=== PATIENT | female | born 1945 | race Caucasian/White ===

== ENCOUNTER 2023-03-20 10:24 | Outpatient (CLI) | payer MEDICARE, OTHER, SELFPAY ==
--- NOTE | 2023-03-20 10:57 | ONC.NURNOTE ---
Addendum entered by Alma Willson, RN 04/14/23 11:34: Called patient to check and see if she still plans [facility]. She notes that she was looking for a place to do prn IVF with a walk in option. She was notified that this is not a possibility, but that if she needs fluids M-F between 8-4PM, she is welcome to call. She declined this service. Original Note: Patient arrived at [facility] stating shes her for fluids. normally goes to [facility]. Dr. Diallo. hasnt been to [facility] in 5 yrs. We did not receive any orders for fluid. She has a port and left her card at home. reassurance and listening given. pt left and felt she could wait for fluids at tomorrows apt in [place]. did offer her to go to the ER. She declined. left vis w/c via house sup. pt calm and seemed to understand
== END 2023-03-20 11:16 | disposition home or self-care (01) ==
LOC: OP CLINIC 10:31 → MEDSURG 10:32 → OP CLINIC 11:15
PROVIDERS: PCP Internal Medicine; Visit Provider Internal Medicine
DX: Z53.8 Procedure and treatment not carried out for other reasons (principal)

== ENCOUNTER 2024-09-13 11:10 | Emergency (ER) | payer MEDICARE, OTHER, SELFPAY ==
[2024-09-13] VITALS (26 sets, daily range): BP systolic 108–177; BP diastolic 60–118; PULSE 75–84; RESP 9–32; TEMP 36.2; O2SAT 93–99; BMI 20.5
--- OUTSIDE RECORDS SUMMARY | 2024-09-13 11:12 | XMS_ITS | Data Portability ---
Author Organization [place] - [facility], [employer] Address [address] [facility] [place] [address] Assessment Encounter Date Assessment Date Assessment LastModified by Organization Details LastModified Time 09/29/2023 09/29/2023 Patient seen in office today for a diabetic foot exam. Diabetes is well controlled. Abnormal findings include neuropathy, mycotic nails. Patient educated on diabetic foot complications and prevention. I did debrided her nails and calluses as previously documented today. We also advised the patient to do vinegar soaks at home. Discussed treatment/diagno stic plan and orders with patient as indicated below. [email or web address] Not available 09/29/2023 12:53:36 Plan of Treatment Reminders Order Date Submit Date Provider Last Modified By Organization Details Last Modified Time Details Appointments None record ed. Lab None record ed. Referral None record ed. Procedures None record ed. Surgeries None record ed. Imaging None record ed. Medication Orders None record ed. Patient TargetsNo targets recorded. Patient InstructionsNo instructions recorded. Reason for Referral None Reported. Problems Name Problem SNOMED Code Status Onset Date Resolution Date Notes Provider Name and Address Organization Details Recorded Time History of thromboem bolism of vein 628763522 Active 2013 History of DVT (deep vein thrombosis ); Original Code: V12.51 Matt ginal Codesystem : ICD-9-CM C lassificat ion: Medical Co nfirmation Status: Confirmed Not Available [facility] 3 09:04:46 Essential hypertens ion 74545698 Active 2013 HTN (Hypertens ion); Original Code: 401.9 Orig inal Codesystem : ICD-9-CM C lassificat ion: Medical Co nfirmation Status: Confirmed Not Available [facility] 3 09:04:46 Glaucoma 11737197 Active 2012 Glaucoma; Original Code: 365.9 Orig inal Codesystem : ICD-9-CM C lassificat ion: Medical Co nfirmation Status: Confirmed Not Available [facility] 3 09:04:47 Osteoarth ritis 930283309 Active 2013 Osteoarthr itis; Original Code: 715.90 Matt ginal Codesystem : ICD-9-CM C lassificat ion: Medical Co nfirmation Status: Confirmed Not Available [facility] 3 09:04:47 Disorder of nervous system due to type 2 diabetes mellitus 240207332 Active 2013 Diabetes Mellitus with Neuropathy ; Original Code: 250.60 Matt ginal Codesystem : ICD-9-CM C lassificat ion: Medical Co nfirmation Status: Confirmed Last vist: 09/19/23 [facility] Lio Galvez[facility] 4 11:55:06 Onychomyc osis due to dermatoph yte 597020430 Active 2013 Onychomyco sis of toenail; Original Code: 110.1 Orig inal Codesystem : ICD-9-CM C lassificat ion: Medical Co nfirmation Status: Confirmed Not Available [facility] 3 09:04:47 Tobacco dependenc e syndrome 31423581 Active 2013 Tobacco user; Original Code: 305.1 Orig inal Codesystem : ICD-9-CM C lassificat ion: Medical Co nfirmation Status: Probable Not Available [facility] 3 09:04:47 Notes:_Paronychia, Toe_ (681 .11) Original Code: 681.11 Original Codesystem: ICD-9-CM Classification: Medical Confirmation Status: Confirmed Problem Notes None recorded. Procedures Surgical History Date Name Laterality Status Provider Name and Address Organization Details Recorded Time 09/29/2023 NAIL/Callu sDEBRIDEME NT completed Kilo [facility] 09/29/2023 12:52:54 Imaging Results None recorded. Procedure Notes None recorded. Medical Equipment None Reported. Allergies No known drug allergies Medications Name Sig Start Date Stop Date Status Note LastModified by Organization Details LastModified Time vitamin d3 25mcg cap TAKE 1 CAPSULE BY MOUTH ONCE DAILY active Not Available Not Available No t Available compound drug active Not Available Not Available Not Available [facility] supplies CHANGE SENSOR EVERY 14 DAYS active Not Available Not Available No t Available lidoc/aller/ clara TAKE 5-10ML BY MOUTH FOUR TIMES A DAY AFTER MEALS AND AT BEDTIME HOLD IN MOUTH FOR 1MIN DONT EAT OR DRINK FOR 15-30MIN AFTER USE active Not Available Not Available No t Available latanoprost 0.005 % eye drops INSTILL 1 DROP INTO EACH EYE AT BEDTIME active Not Available Not Available No t Available atorvastatin 40 mg tablet TAKE 1 TABLET BY MOUTH ONCE DAILY active Not Available Not Available No t Available nystatin 100,000 unit/mL oral suspension TAKE 5 ML BY MOUTH 4 TIMES DAILY FOR 14 DAYS active Not Available Not Available Not Available ketoconazole 2 % shampoo active Not Available Not Available Not Available hydrocodone 5 mg-acetamino phen 325 mg tablet TAKE 1 TABLET BY MOUTH EVERY 6 HOURS NEEDED FOR SEVERE PAIN OR SCORE 7-10 OF 10 active Not Available Not Available N ot Available ondansetron HCl 8 mg tablet TAKE 1 TABLET BY MOUTH EVERY 8 HOURS NEEDED FOR NAUSEA AND VOMITING UNRELIEVED BY PROCHLORPER AZINE active Not Available Not Available No t Available olanzapine 5 mg tablet TAKE 1 TABLET BY MOUTH AT BEDTIME STARTING DAY 1 OF CHEMO UNTIL 4 DAYS AFTER CHEMO, THEN NEEDED FOR NAUSEA/VOMI TING AFTER THAT. IF YOU HAVE NAUSEA/VOMI TING DURING CYCLE 1, START NIGHT PRIOR TO CHEMO FOR FUTURE CYCLES. active Not Available Not Available No t Available diphenoxylat e-atropine 2.5 mg-0.025 mg tablet TAKE 1 TABLET BY MOUTH 4 TIMES DAILY NEEDED FOR DIARRHEA active Not Available Not Available No t Available amlodipine 2.5 mg tablet TAKE 1 TABLET BY MOUTH ONCE DAILY active Not Available Not Available No t Available ciprofloxaci n 250 mg tablet TAKE 1 TABLET BY MOUTH TWICE DAILY BEFORE BREAKFAST AND BEFORE SUPPER FOR 10 DAYS active Not Available Not Available No t Available amlodipine 5 mg tablet TAKE 1 TABLET BY MOUTH ONCE DAILY active Not Available Not Available No t Available prochlorpera zine maleate 10 mg tablet TAKE 1 TABLET BY MOUTH EVERY 6 HOURS NEEDED FOR NAUSEA FOR VOMITING active Not Available Not Available No t Available triamcinolon e acetonide 0.1 % topical cream active Not Available Not Available Not Available ketorolac 0.5 % eye drops INSTILL 1 DROP INTO EACH EYE THREE TIMES DAILY active Not Available Not Available No t Available benzonatate 100 mg capsule TAKE 1 CAPSULE BY MOUTH THREE TIMES DAILY NEEDED FOR COUGH active Not Available Not Available No t Available erythromycin 5 mg/gram (0.5 %) eye ointment APPLY 1 CM TO BOTH EYES AT BEDTIME FOR 14 DAYS active Not Available Not Available No t Available dexamethason e 4 mg tablet TAKE 2 TABLETS BY MOUTH ONCE DAILY FOR 3 DAYS ON DAYS 2, 3 AND 4 OF EACH CYCLE active Not Available Not Available N ot Available losartan 25 mg tablet TAKE 1 TABLET BY MOUTH ONCE DAILY active Not Available Not Available No t Available brimonidine 0.2 % eye drops INSTILL 1 DROP INTO EACH EYE THREE TIMES DAILY active Not Available Not Available No t Available omeprazole 20 mg capsule,jackelyn yed release TAKE 1 CAPSULE BY MOUTH ONCE DAILY active Not Available Not Available No t Available codeine 10 mg-guaifenes in 100 mg/5 mL oral liquid TAKE 5 ML BY MOUTH EVERY 4 HOURS NEEDED FOR COUGH active Not Available Not Available No t Available mupirocin 2 % topical ointment APPLY TO AREA ON NOSE 1-2X DAILY UNTIL WELL HEALED. active Not Available Not Available No t Available furosemide 20 mg tablet TAKE 1 TABLET BY MOUTH ONCE DAILY NEEDED FOR FLUID RETENTION active Not Available Not Available No t Available insulin lispro (U-100) 100 unit/mL subcutaneous solution INJECT UNDER SKIN VIA INSULIN PUMP FOLLOWING SLIDING SCALE. MAX 75 UNITS PER 24 HOURS. active Not Available Not Available No t Available estradiol 0.01% (0.1 mg/gram) vaginal cream active Not Available Not Available Not Available albuterol sulfate HFA 90 mcg/actuatio n aerosol inhaler INHALE 2 PUFFS BY MOUTH EVERY 4 HOURS NEEDED FOR WHEEZING FOR SHORTNESS OF BREATH active Not Available Not Available No t Available betamethason e dipropionate 0.05 % lotion active Not Available Not Available Not Available amoxicillin 875 mg-potassium clavulanate 125 mg tablet TAKE 1 TABLET BY MOUTH TWICE DAILY FOR 7 DAYS active Not Available Not Available No t Available Vitamin D3 25 mcg (1,000 unit) capsule TAKE 1 CAPSULE BY MOUTH ONCE DAILY active Not Available Not Available No t Available Xarelto 20 mg tablet TAKE 1 TABLET BY MOUTH ONCE DAILY WITH SUPPER active Not Available Not Available No t Available Farxiga 5 mg tablet TAKE 1 TABLET BY MOUTH ONCE DAILY active Not Available Not Available No t Available Spiriva Respimat 2.5 mcg/actuatio n solution for inhalation INHALE 2 SPRAY(S) BY MOUTH ONCE DAILY active Not Available Not Available No t Available metoprolol tartrate 75 mg tablet TAKE 1 TABLET BY MOUTH TWICE DAILY active Not Available Not Available No t Available metoprolol tartrate 37.5 mg tablet TAKE 1 TABLET BY MOUTH TWICE DAILY active Not Available Not Available No t Available NebuSal 3 % solution for nebulization active Not Available Not Available Not Available Vitals Date Recorded Body height Body mass index (BMI) Body weight Provider Name and Address Organization Details Last Updated DateTime 09/29/2023 167.64 cm 22.4 kg/m2 53772.34 g Eleanor Mccoy [place] - [facility] 09/29/2023 10:59:35 Social History None recorded. Functional Status None recorded. Mental Status None recorded. Family History Nothing Reported. Medical History No medical history recorded. Gynecological HistoryNo gynecological history recorded. Obstetrics History GPAL:G 0 P 0 0 0 0 Past Encounters Encounter ID Performer Location Encounter Start Date Encounter Closed Date Diagnosis/Indication Diagnosis SNOMED-CT Code Diagnosis ICD10 Code Diagnosis Note [id number] Andrews Crawford DPM [place] [facility] [address] [facility] [address] [place] [address] 09/29/2023 10:57:14 10/04/2023 10:21:27 Peripheral neuropathy due to type 2 diabetes mellitus 4882896617 107 E11.42 Onychomycosis 091042421 B35.1 Foot callus 727449878 L8 4 Health Concerns Section Related Observation LastModified by Organization Detai ls LastModified Time None Recorded Concern Status LastModified by Organization Details LastModified Time None Recorded Advance Directives Directive None Recorded Payers Encounter Date Sequence Insurance Name Policy Number Policy Sanchez Covered Member ID Sanchez Member ID Guarantor Name 09/29/2023 1 [employer] Iva Goyal [id number] Iva Goyal 09/29/2023 2 MEDICARE [place]: [employer] SERVICES [facility] Iva Goyal [id number] Iva Goyal Notes Date Note Type Note Provider Name and Address Organization Details Recorded Time 09/29/2023 text/html Patient new patient is here today for diabetic foot care. Patient is in need of nail care today aggravated with shoe gear and ambulation. The patient denies any new foot complaints. Patient did last see Dr. Jenny Barkley for diabetes care 09/19/2023 Additionally, the patient was having edema on the right leg and foot. Andrews Crawford DPM [address] [place], [address], [place] - [facility] 09/30/2023 11:03:05 OBGyn Episode No OBEpisode recorded.
--- OUTSIDE RECORDS SUMMARY | 2024-09-13 11:12 | XMS_ITS | Clinical Summary ---
Author Organization [facility] Address [address] [place] [id number] Care Team Providers Care Director Retail Brand Development Name Role Phone Jenny Vaca MD Primary Care Provide r Allergies Active Allergy Reactions Criticality Noted Date Comments Beta-Blockers (Beta-Adrenerg ic Blocking Agts) Itching 09/14/2017 Gadolinium-Containing Contrast Media Rash Medium 07/01/2021 Iodinated Contrast Media Rash Medium 07/01/2021 Tree And Shrub Pollen Itching 12/01/2017 Medications cholecalciferol (VITAMIN D) 1,000 unit capsule 1 oral daily Supplement Active INSULIN PUMP CARTRIDGE SUBQ Dosed per carbs daily Diabetes Active aspirin 81 mg capIndications:m yocardial infarction prevention Take 81 mg by mouth once daily with a meal. Active brimonidine (ALPHAGAN P) 0.15 % ophthalmic solution Place 1 Drop into both eyes 3 times daily. Active albuterol HFA 90 mcg/actuation inhaler Inhale 2 Puffs by mouth 4 times daily if needed. Active triamcinolone (ARISTOCORT; KENALOG) 0.1 % cream Apply topically to affected area(s) 3 times daily if needed. Active atorvastatin (LIPITOR) 40 mg tablet Take 40 mg by mouth at bedtime. Active furosemide (LASIX) 20 mg tabletIndication s:hypertension Take 20 mg by mouth once daily if needed. Active HYDROcodone-acet aminophen, 5-325 mg, (NORCO) per tablet Take 1 tablet by mouth every 4 hours if needed for Pain Max acetaminophen dose: 4000 mg in 24 hrs. Active latanoprost (XALATAN) 0.005 % ophthalmic solution Place 1 Drop into the eye(s). 04/02/20 Active magnesium chloride delayed release tablet Take 71.5 mg by mouth once daily if needed. 07/17/19 Active metoprolol tartrate 75 mg tab Take 75 mg by mouth two times daily. 01/20/20 Active omeprazole (PRILOSEC) 20 mg Delayed-Release capsule Take 20 mg by mouth. 01/20/20 Active Xarelto 20 mg tablet TAKE ONE TABLET BY MOUTH ONCE DAILY WITH DINNER 06/18/19 Active amLODIPine (NORVASC) 5 mg tablet Take 5 mg by mouth once daily. 01/19/20 Active betamethasone dipropionate 0.05% (DIPROSONE LOTION 0.05%) lotion APPLY THIN LAYER TO AFFECTED AREA ON SCALP 1-2X DAILY FOR UP TO 2 WEEKS, TAKE 2 WEEK BREAK THEN REPEAT NEEDED FOR FLARES 12/05/19 Active Farxiga 5 mg tablet Take 1 Tablet by mouth once daily. 11/26/19 Active dexAMETHasone (DECADRON) 4 mg tablet Take 8 mg by mouth once daily if needed. Active fluticasone (50 mcg per actuation) nasal solution (FLONASE) Inhale 2 Sprays into affected nostril(s) once daily if needed. Active insulin lispro (HUMALOG; ADMELOG) 100 unit/mL injection Follow sliding scale up to 75 units in 24 hours subcutaneously via insulin pump (DM Type 2 E11.40 Lifetime need A1C 6.3 on 09/09/22) 12/28/19 23 Active loperamide (IMODIUM) 2 mg tablet Take 2 mg by mouth 4 times daily if needed. Active losartan (COZAAR) 25 mg tablet Take 1 Tablet by mouth once daily. 02/18/20 23 Active OLANzapine (ZYPREXA) 5 mg tablet Take 5 mg by mouth. 02/16/20 23 Active sodium chloride 3% nebulization 3 % nebulizer solution Inhale 4 mL by mouth 2 times daily if needed. 01/19/20 23 Active Spiriva Respimat 2.5 mcg/actuation mist for inhalation INHALE 2 SPRAY(S) BY MOUTH ONCE DAILY Active HYDROcodone-acet aminophen (5-325 mg/tablet)Indica tions:Malignant neoplasm of right lung, unspecified part of lung (HC) Take 1 Tablet by mouth every 4 hours if needed for Pain. Max acetaminophen dose: 4000 mg in 24 hrs. 8 Tablet 03/04/20 Active magic mouthwash 1:1:1 diphen/maalox/li do 2% (AMB SPECIAL MIX) Take 5-10 mL by mouth four times daily. After meals and at bedtime. Hold in mouth for one minute. 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 03/04/20 Active Active Problems Problem Noted Date Diagnosed Date Primary open angle glaucoma, right eye 4 Posterior capsule opacification 02/08/2012 Cataract 08/24/2011 Overview (08/24/2011): Right Eye Type II or unspecified type diabetes mellitus without mention of complication, not stated as uncontrolled 01/14/2004 Immunizations Immunization Administration Dates Next Due Influenza, High-dose Inactivated 03/28/2013 Influenza, IIV3 (Age >=3 years) 02/15/2011 Pneumococcal Poly,23-Valent (Pneumovax) 01/06/20 05 Td (Age >=7 Years) 08/14/2007 Zoster (Zostavax-ZVL, live) 10/19/2011 Social History Tobacco Use Types Packs/Day Years Used Date Smoking Tobacco: Every Day Cigarettes Smokeless Tobacco: Never Tobacco Cessation:Ready to Q uit: No; Counseling Given: Yes Alcohol Use Standard Drinks/Week Comments Yes 0 (1 standard drink = 0.6 oz pur e alcohol) every night Social Connections Answer Date Recorded Frequency of Communication with Friends and Fami ly Not on file 09/17/2021 Interpersonal Safety Answer Date Record ed Are you being hit, kicked, p ushed or yelled at (see row info)? No 02/13/2024 Interpersonal Safety Abuse 12 - 18 Not on file 02/13/2024 Interpersonal Safety Ambulatory Vulnerability No t on file 02/13/2024 Comments No Sex and Gender Information Value Date Recorded Sex Assigned at Not on file Legal Sex Female 5:23 AM PARTS DELIVERY DRIVER Gender Identity Not on file Sexual Orientation Not on file Obstetrics History Last Filed Vital Signs Vital Sign Reading Time Taken Comments Blood Pressure 157/75 05/24/2024 1:30 PM PARTS DELIVERY DRIVER Pulse 76 05/24/2024 1:30 PM PARTS DELIVERY DRIVER Temperature 36.3 C (97.4 F) 05/24/2024 1:30 PM PARTS DELIVERY DRIVER Respiratory Rate 18 05/24/2024 1:30 PM PARTS DELIVERY DRIVER Oxygen Saturation 96% 02/13/2024 5:26 PM CDT Inhaled Oxygen Concentration - - Weight 64.2 kg (141 lb 8 oz) 02/13/2024 5:26 PM CDT Height 167.6 cm (5' 6) 02/13/2024 5:26 PM CDT Body Mass Index 22.84 02/13/2024 5:26 PM CDT Plan of Treatment Health Maintenance Due Date Last Done Comments Tdap 1957 Depression screening for age 12+ 1958 BMI (ht and wt on same day) for age 18+ 1964 Hepatitis C screening for ag e 18-79 1964 Pneumococcal series for age 50+ (2 of 2 - PCV) 01/05/2006 01/05/2005 DEXA/DXA scan for age 65+ 2011 Medicare Wellness for age 65+ 2011 Zoster (shingles) series for age 50+ (2 of 3) 12/14/2011 10/19/2011 Tetanus booster 08/13/2017 08/14/2007 RSV vaccine for adults or (1 - 1-dose 75+ series) 2021 COVID-19 vaccine series ( season) 2024 04/27/2022, 04/20/2021, 08/30/2020, Additional history exists Influenza Vaccine (Season Ended) 2025 03/28/20 13, 02/15/2011 Medical Devices Implanted Type Area Instrumentation And Control Technician Device Identifier Shelf Expiration Date Model / Serial / Lot Lens Iol Zcb00 19.0 - [id number] Implanted:Qty: 1 on 08/25/2011 at Right: Eye 12/28/2013 ZCB00# / [id number] / Port 8fr Powerport Clearvue Slim Intermediate Silcn - [id number] Implanted:Qty: 1 on 03/04/2023 by Kaylynn Espinoza MD at [facility] [employer] [facility] 10/27/2024 [id number] / / [id number] Insurance MEDICARE PART B HB ONLY MEDICARE PART A HB ONLY MEDICA PRIME SOLUTIONS MR PB ONLY MEDICA PRIME SOLUTION [place] [id number] Advance Directives * Full Code (Latest Code Status on File) Date Activated Date Inactivated Comments 05/24/2024 11:11 AM 05/25/2024 2:12 AM Question Answer Comments Code Status Discussion: Reviewed Preferences * Full Code Date Activated Date Inactivated Comments 03/04/2023 5:58 AM 03/04/2023 12:33 PM Question Answer Comments Code Status Discussion: Unable to Assess Preferences, Provider to review later * Full Code Date Activated Date Inactivated Comments 04/19/2017 9:41 AM 04/19/2017 1:42 PM * Full Code Date Activated Date Inactivated Comments 12/07/2016 8:25 AM 12/08/2016 2:14 AM * Full Code Date Activated Date Inactivated Comments 10/02/2013 4:47 PM 10/03/2013 2:10 AM Care Teams Director Retail Brand Development Relationship Specialty Start Date End Date Jenny Vaca MD [address], [place] [address] PCP - General 04/29/09
--- NOTE | 2024-09-13 11:30 | CRLHL7_ITS ---
For Patients: As a result of the Century Cures Act, medical imaging exams and procedure reports are released immediately into your electronic medical record. You may view this report before your referring provider. If you have questions, please contact your health care provider. INDICATION: Fall TECHNIQUE: CT chest, abdomen and pelvis acquired 100 cc Isovue 370 IV contrast. COMPARISON: CT abdomen pelvis 03/07/2020 FINDINGS: CHEST: Thyroid: Unremarkable. Cardiovascular structures: Heart size is normal. Trivessel coronary artery calcification. Thoracic aorta and main pulmonary artery are normal in caliber. Atherosclerosis of the aortic arch. Mediastinum and ana: Prominent subcarinal lymph node measuring 1.5 x 1.1 centimeters (). Lungs and pleura: Multiple new nodules throughout the lungs compared to 2020, greater in the right lung, particularly the right lower lobe, and indexed as follows: -in the right middle lobe along the right heart border () measuring 1.5 x 1 centimeter -in the left lower lobe measuring 1 x 0.8 centimeters () -lobulated nodule versus multiple nodules in the right lower lobe along the pleura measuring 1.5 x 0.7 centimeters () Right perihilar consolidation and ground-glass opacity with surrounding architectural distortion (46). Ground-glass opacity and consolidation along the right 4th rib (39). In the anterior right lower lobe there is a hyperdense area of nodularity measuring 1.5 x 1 centimeter with adjacent atelectasis/scarring () is similar to 2020. Centrilobular and paraseptal emphysema. Trace right pleural effusion. Chest wall and axilla: Left chest wall port catheter with tip at the superior cavoatrial junction. Bones: Sclerotic appearance of the right lateral 4th rib with possible pathologic fracture (37). ABDOMEN AND PELVIS: Liver: Unremarkable. Gallbladder and bile ducts: Cholecystectomy. Mild prominence of intra and extrahepatic biliary ducts, likely related to reservoir effect. Pancreas: Moderate pancreatic atrophy. Spleen: Moderate atrophy of the spleen without evidence of calcification. Adrenal glands: Unremarkable. Kidneys: Right renal cyst and bilateral subcentimeter hypodense lesions, likely cysts. Right nonobstructing nephrolith. Bilateral vascular calcifications. GI tract: No obstruction. Colonic diverticulosis without diverticulitis. Significant stool throughout the transverse colon. Fecalization of distal small bowel loops can be seen with slow transit. Vascular structures: Severe aortoiliac atherosclerosis. Lymph nodes: Unremarkable. Peritoneum/Retroperitoneum/Abdominal Wall: Anterior abdominal wall scar. Pelvic Organs: Hysterectomy.. Bones and superficial soft tissues: No suspicious bone lesions. Unremarkable for age. IMPRESSION: No evidence of acute traumatic injury in the chest, abdomen or pelvis. 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 Metastatic sclerotic lesion in the right lateral 4th rib with pathologic fracture, likely chronic. Compared to 2020, multiple new nodules throughout the lungs, likely representing metastatic lesions. Ground-glass opacity and architectural distortion in the right perihilar region and in the right upper lobe along the right 4th rib sclerotic lesion may be related to treatment changes, though underlying persistent malignancy cannot be excluded. Mildly prominent subcarinal lymph node is indeterminate and may be metastatic. Please note that all CT scans at this facility use dose modulation, iterative reconstruction, and/or weight-based dosing when appropriate to reduce radiation dose to as low as reasonably achievable. Dictated by Neena Limon MD @ 09/13/2024 12:57:02 PM (Electronically Signed)
--- NOTE | 2024-09-13 11:31 | CRLHL7_ITS ---
For Patients: As a result of the Century Cures Act, medical imaging exams and procedure reports are released immediately into your electronic medical record. You may view this report before your referring provider. If you have questions, please contact your health care provider. INDICATION: fall, hit head, metastatic brain cancer TECHNIQUE: Non-contrast CT of the head is submitted. COMPARISON: MRI brain dated 08/11/2018 FINDINGS: Mild diffuse parenchymal volume loss with commensurate ex vacuo dilatation of the ventricles and sulci. Small foci of chronic encephalomalacia in the left middle frontal gyrus and left carcamo radiata. There are other nonspecific low attenuation white matter changes consistent with chronic microvascular disease. No sign of hemorrhage or midline shift. No discretely visualized masses on this noncontrast examination. The visualized paranasal sinuses and mastoid air cells are essentially clear. The visualized orbits are grossly unremarkable. No skull fractures. IMPRESSION: No acute intracranial findings. Please note that all CT scans at this facility use dose modulation, iterative reconstruction, and/or weight-based dosing when appropriate to reduce radiation dose to as low as reasonably achievable. Dictated by Tyree Barron MD @ 09/13/2024 12:29:34 PM (Electronically Signed)
--- NOTE | 2024-09-13 11:31 | CRLHL7_ITS ---
For Patients: As a result of the Cures Act, medical imaging exams and procedure reports are released immediately into your electronic medical record. You may view this report before your referring provider. If you have questions, please contact your health care provider. INDICATION: Fall, hit head. TECHNIQUE: CT cervical spine without contrast. COMPARISON: None. FINDINGS: Vertebrae: Diffuse osseous demineralization. No evident acute fracture or traumatic subluxation. Discs and facet joints: There are degenerative disc changes most severe at C5-6. There are multilevel degenerative changes in the facets. Extraspinal findings: Paraspinous soft tissues are unremarkable. IMPRESSION: 1. No sign of acute injury. 2. Multilevel degenerative spondylosis. Please note that all CT scans at this facility use dose modulation, iterative reconstruction, and/or weight-based dosing when appropriate to reduce radiation dose to as low as reasonably achievable. Dictated by Tyree Barron MD @ 09/13/2024 12:32:57 PM (Electronically Signed)
[2024-09-13 11:43] LABS: Creatinine, Point-of-Care* 1.6 mg/dl (0.6-1.3)
--- NOTE | 2024-09-13 11:43 | ED.GENADULT ---
HPI - General Adult General Date Seen: 09/13/24 Chief complaint: Fall/Minor Trauma Stated complaint: Fall Time Seen by Provider: 09/13/24 11:12 Source: patient and family Mode of arrival: ambulatory Limitations: no limitations History of Present Illness HPI narrative: patient is a 79-year-old female with a history small cell lung cancer with metastasis to the brain who is currently on chemotherapy and radiation And diabetes therapy presenting to the emergency department for a fall. she states she was in the bathroom when she suddenly was feeling lightheaded like she was about to pass out. She fell to the ground and believe she hit her head against the bathtub. right now is complaining about a headache, low back pain, left hip pain and right knee pain. She states she never fully lost consciousness and just felt lightheaded. She states symptoms persisted and she still felt slightly lightheaded when she got to the emergency department. Now Laying in bed the symptoms have improved. denies incontinence cough, saddle anesthesia, fevers, chills, abdominal pain, chest pain, shortness of breath, dizziness, weakness, numbness. Has had issues with lightheadedness in the past. States she came in because she was told to be evaluated whenever she hit her head due to being on blood thinners. Related Data Home Medications ?Medication ?Instructions ?Recorded ?Confirmed amlodipine 5 mg tablet 5 mg PO DAILY 09/13/24 09/13/24 aspirin 81 mg capsule 81 mg PO DAILY 09/13/24 09/13/24 cholecalciferol (vitamin D3) 25 25 mcg PO DAILY 09/13/24 09/13/24 mcg (1,000 unit) capsule dapagliflozin propanediol 5 mg 5 mg PO DAILY 09/13/24 09/13/24 tablet (Farxiga) gabapentin 300 mg capsule 300 mg PO DAILY 09/13/24 09/13/24 hydrocodone 5 mg-acetaminophen 325 1 tab PO QID PRN 09/13/24 09/13/24 mg tablet insulin lispro 100 unit/mL 1 sliding scale dose continuous 09/13/24 09/13/24 subcutaneous solution subcutaneous infusion Q24H latanoprost 0.005 % eye drops 1 drp ophthalmic (eye) QPM 09/13/24 09/13/24 metoprolol tartrate 25 mg tablet 25 mg PO BID 09/13/24 09/13/24 omeprazole 20 mg capsule,delayed 20 mg PO DAILY 09/13/24 09/13/24 release perfluorohexyloctane (PF) 100 % 1 drp ophthalmic (eye) QID 09/13/24 09/13/24 eye drops (Miebo (PF)) pravastatin 20 mg tablet 20 mg PO DAILY 09/13/24 09/13/24 rivaroxaban 20 mg tablet (Xarelto) 20 mg PO QPM 09/13/24 09/13/24 tiotropium bromide 2.5 2 inh inhalation Q24H 09/13/24 09/13/24 mcg/actuation mist for inhalation (Spiriva Respimat) Allergies Allergy/AdvReac Type Severity Reaction Status Date / Time atenolol Allergy Verified 09/13/24 11:40 lidocaine Allergy Verified 09/13/24 11:40 betablockers Allergy Uncoded 09/13/24 11:40 Review of Systems Status of ROS: Reports: 10 or more systems reviewed and unremarkable except as noted in History and below Exam Narrative: Exam Narrative: Airway: Airway patent, Breathing: Good bilateral air movement, no signs of tracheal deviation normal appearing chest wall movement, oxygenating appropriately Circulation: No signs of obvious hemorrhage, pulses +2 bilaterally in all extremities Disability: GCS 15 Constitutional: Pt is oriented to person, place, and time. Pt appears well-developed and well-nourished. HENT: Head: Normocephalic and atraumatic. Mouth/Throat: Oropharynx is clear and moist. No hematomas or lacerations or abrasions to face or scalp OP clear, no blood, no malocclusion, dentition intact Nares clear, no nasal septal hematoma TMs clear, no hemotympanum Midface stable Eyes: Conjunctivae and EOM are normal. Pupils are equal, round, and reactive to light. Neck: C-spine midline nontender, no step-offs Cardiovascular: Normal rate, regular rhythm and normal heart sounds. Pulmonary/Chest: Effort normal and breath sounds normal. No respiratory distress. He has no wheezes. CTA bilaterally Abdominal: Soft. Bowel sounds are normal. Pt exhibits no distension. There is no tenderness. Musculoskeletal: mild tenderness to right Knee, no deformities, full ROM extremities, Chest wall stable, Pelvis stable and mild left-sided tenderness, no step-offs noted of the spine as she does have diffuse tenderness going from the L1 down along which paraspinal tenderness Neurological: Pt is alert and oriented to person, place, and time., Moving all extremities willfully, able to wiggle all fingers and toes, Sensation grossly intact, GCS 15 Skin: Skin is warm and dry. No abrasions, no lacerations Psychiatric: Behavior is appropriate for situation Const: Vital Signs, click to edit/add: Vital Signs - 24 hr 09/13/24 11:32 09/13/24 11:44 09/13/24 11:45 Temperature 97.1 F L Pulse Rate 76 75 Pulse Rate [Pulse Oximeter] 84 Respiratory Rate 17 16 13 Blood Pressure Blood Pressure [Le ft Upper Arm] 128/118 H Pulse Oximetry 99 97 96 Oxygen Delivery [facility] Room Air 09/13/24 12:19 09/13/24 12:22 09/13/24 12:30 Temperature Pulse Rate 79 80 80 Pulse Rate [Pulse Oximeter] Respiratory Rate 16 29 H Blood Pressure 172/83 H Blood Pressure [Le ft Upper Arm] Pulse Oximetry 98 97 96 Oxygen Delivery [facility] 09/13/24 12:32 09/13/24 12:42 09/13/24 12:45 Temperature Pulse Rate 80 79 79 Pulse Rate [Pulse Oximeter] Respiratory Rate 12 13 14 Blood Pressure 155/82 H 167/81 H Blood Pressure [Le ft Upper Arm] Pulse Oximetry 93 96 94 Oxygen Delivery [facility] 09/13/24 12:52 09/13/24 13:00 09/13/24 13:02 Temperature Pulse Rate 81 82 82 Pulse Rate [Pulse Oximeter] Respiratory Rate 14 9 L 18 Blood Pressure 168/82 H 150/80 H Blood Pressure [Le ft Upper Arm] Pulse Oximetry 96 97 94 Oxygen Delivery [facility] 09/13/24 13:12 09/13/24 13:15 09/13/24 13:22 Temperature Pulse Rate Pulse Rate [Pulse Oximeter] Respiratory Rate 18 18 Blood Pressure 171/96 H 121/60 Blood Pressure [Le ft Upper Arm] Pulse Oximetry Oxygen Delivery [facility] 09/13/24 13:30 09/13/24 13:32 09/13/24 13:33 Temperature Pulse Rate Pulse Rate [Pulse Oximeter] Respiratory Rate 13 13 13 Blood Pressure 177/87 H Blood Pressure [Le ft Upper Arm] Pulse Oximetry Oxygen Delivery [facility] 09/13/24 13:43 09/13/24 13:52 09/13/24 14:00 Temperature Pulse Rate Pulse Rate [Pulse Oximeter] Respiratory Rate 32 H 12 Blood Pressure 114/81 150/98 H Blood Pressure [Le ft Upper Arm] Pulse Oximetry Oxygen Delivery Me thod 09/13/24 14:02 09/13/24 14:02 09/13/24 14:15 Temperature Pulse Rate Pulse Rate [Pulse Oximeter] Respiratory Rate 12 12 12 Blood Pressure 108/69 108/69 Blood Pressure [Le ft Upper Arm] Pulse Oximetry Oxygen Delivery Me thod 09/13/24 14:16 09/13/24 14:23 Temperature Pulse Rate Pulse Rate [Pulse Oximeter] Respiratory Rate 11 L 26 H Blood Pressure 143/73 H Blood Pressure [Le ft Upper Arm] Pulse Oximetry Oxygen Delivery Me thod Course Vital Signs Vital signs: Initial Vital Signs Pulse Rate 76 09/13/24 11:32 Respiratory Rate 17 09/13/24 11:32 Pulse Oximetry 99 09/13/24 11:32 Vital Signs Pulse Rate 76 09/13/24 11:32 Respiratory Rate 17 09/13/24 11:32 Pulse Oximetry 99 09/13/24 11:32 Temperature 97.1 F L 09/13/24 11:44 Pulse Rate 82 09/13/24 13:02 Respiratory Rate 26 H 09/13/24 14:23 Blood Pressure 143/73 H 09/13/24 14:23 Pulse Oximetry 94 09/13/24 13:02 Oxygen Delivery Method Room Air 09/13/24 11:44 Medical Decision Making [facility] Narrative Medical decision making narrative: patient is a 79-year-old female presenting to emergency department after a former rate she was having lightheadedness has since improved somewhat but it did persist her into the emergency department. She is a diabetic her checked a blood sugar and was 72. She states she had a Andrea cracker just prior to arrival. The lightheadedness may be due to a hypoglycemic episode but I will do further evaluation especially considering her history. She is having the back pain and pelvis pain but does not appear to have an unstable pelvis. With this history though I will just do a pain scan to evaluate everything as symptoms could be related to her cancer also. CT scan of the head, cervical spine, chest abdomen pelvis all ordered. Will also x-ray the right hip. Ordered a CBC, CMP, urinalysis, BNP, COVID/ flu / RSV, UA, magnesium, troponin, EKG. patient's lab work shows no concerning abnormalities other than a slightly low hemoglobin. Based on previous hemoglobins, most recently I could find in epic was in 2019, it is slightly below her baseline but she has been receiving chemotherapy since then cell I am not too concerned about it. No signs of bleeding at this time. Her blood sugar was 75. I did look through her monitor and it shows that she has been low and abnormally high amount since last night. She has a continuous basal insulin. She has never had issues with her insulin monitor before. I do believe this hypoglycemia caused her fall she does states she is only eating a Andrea cracker today which is a small amount for her and she noticed her blood sugar was low before she fell. imaging all returned and reviewed by myself and the radiologist shows no acute concerning abnormalities. Other abnormality seen in her chest and likely chronic due to her known small cell lung cancer and she has been having it evaluated routinely via [facility] and the most recent comparison we have is from 5 years ago. I did speak to the radiologist about the findings in her brain. He states this can be followed up outpatient and does not need any emergent imaging. Patient ate here and his sugar seems to jump around. before she ate her blood sugar is 115 but dropped out a 69 right after she got done eating. It Eventually recovered up to 85. we were checking her blood sugar using our point of care in her home monitor. They were relatively close. was going to keep monitoring her and possibly having her stop her insulin pump but she states she feels good enough to go home. She does not want to wait any longer. She believes her sugar is bouncing around because she got the CT scan with IV contrast today. I explained that her sugars were bouncing around before that to but she believe she is safe for discharge. Her family and the room agree with this plan. I informed her she needs to be very careful and watch her blood sugars closely. She is agreeable to this plan. Lab Data Labs: Lab Results 09/13/24 09/13/24 09/13/24 Range/Units 11:31 11:34 12:20 WBC 5.29 (4.50-11.00) K/uL RBC 2.96 L (4.00-5.20) m/uL Hgb 8.8 L (12.0-16.0) gm/dL Hct 28.2 L (33.0-51.0) % MCV 95 (80-100) fL MCH 30 (26-34) pg MCHC 31 L (32-36) gm/dL RDW Coeff of Shey 15.5 (11.5-15.5) % Plt Count 293 (140-440) K/uL Neut % (Auto) 61.2 (42.0-72.0) % Lymph % (Auto) 21.6 (20-44) % [place] % (Auto) 12.1 H (0.0-11.0) % Eos % (Auto) 4.3 (0.0-7.0) % Baso % (Auto) 0.4 (0.0-3.0) % Neut # (Auto) 3.24 (1.7-7.0) K/uL Lymph # (Auto) 1.14 (0.90-2.90) K/uL [place] # (Auto) 0.60 (0.00-0.90) K/UL Eos # (Auto) 0.23 (0.00-0.50) K/uL Baso # (Auto) 0.02 (0.00-0.30) K/uL Abs Immat Gran (auto) 0.02 (0.00-0.30) K/uL Imm/Tot Granulo (auto) 0.4 % Sodium 136 (135-149) mmol/L Potassium 3.9 (3.6-5.1) mmol/L Chloride 106 (96-114) mmol/L Carbon Dioxide 22 (20-32) mmol/L Anion Gap 8 (7-15) mEq/L BUN 25 (7-30) mg/dL Creatinine 1.4 (0.5-1.5) mg/dL Estimated Creat Clear 30.17 Estimated GFR 39 ml/min Glucose 75 (60-115) mg/dL Calcium 8.7 (8.4-10.6) mg/dL Magnesium 1.9 (1.5-2.6) mg/dL Total Bilirubin 0.3 (0.1-1.5) mg/dL AST 27 (12-35) U/L ALT 14 (4-35) U/L Alkaline Phosphatase 86 (40-150) U/L Troponin I 0.02 (0.01-0.04) ng/mL NT-Pro-B Natriuret Pep 496 pg/mL Total Protein 5.8 L (6.0-8.3) g/dL Albumin 3.3 (3.3-5.0) g/dL SARS-CoV-2 (PCR) Negative SARS-CoV-2 (Negative) Influenza Type A (PCR) Negative PCR FLU A (Negative) Influenza Type B (PCR) Negative PCR FLU B (Negative) RSV (PCR) Negative PCR RSV (Negative) POC Creatinine 1.6 H (0.6-1.3) mg/dl Imaging Data CT scan head: Attestation: I have reviewed the pertinent imaging results. Radiologist's impression: No acute intracranial findings. Please note that all CT scans at this facility use dose modulation, iterative reconstruction, and/or weight-based dosing when appropriate to reduce radiation dose to as low as reasonably achievable. Dictated by Tyree Barron MD @ 09/13/2024 12:29:34 PM ----- ADDENDUM ----- In the setting of reported known brain metastases, the foci of parenchymal hypodensity in the middle frontal gyrus and left carcamo radiata could reflect encephalomalacia, or may be related to underlying lesions that are not well-visualized on this noncontrast examination. Dictated by Tyree Barron MD @ Sep 13 2024 12:42PM CT Chest/Ab/Pelvis: Attestation: I have reviewed the pertinent imaging results. Radiologist's impression: No evidence of acute traumatic injury in the chest, abdomen or pelvis. 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 Metastatic sclerotic lesion in the right lateral 4th rib with pathologic fracture, likely chronic. Compared to 2019, multiple new nodules throughout the lungs, likely representing metastatic lesions. Ground-glass opacity and architectural distortion in the right perihilar region and in the right upper lobe along the right 4th rib sclerotic lesion may be related to treatment changes, though underlying persistent malignancy cannot be excluded. Mildly prominent subcarinal lymph node is indeterminate and may be metastatic. Please note that all CT scans at this facility use dose modulation, iterative reconstruction, and/or weight-based dosing when appropriate to reduce radiation dose to as low as reasonably achievable. Dictated by Neena Limon MD @ 09/13/2024 12:57:[address] scan cervical spine: Attestation: I have reviewed the pertinent imaging results. Radiologist's impression: 1. No sign of acute injury. 2. Multilevel degenerative spondylosis. Please note that all CT scans at this facility use dose modulation, iterative reconstruction, and/or weight-based dosing when appropriate to reduce radiation dose to as low as reasonably achievable. Dictated by Tyree Barron MD @ 09/13/2024 12:32:[address] scan lumbar spine: Attestation: I have reviewed the pertinent imaging results. Radiologist's impression: 1. No sign of acute injury. 2. Multilevel degenerative spondylosis. Please note that all CT scans at this facility use dose modulation, iterative reconstruction, and/or weight-based dosing when appropriate to reduce radiation dose to as low as reasonably achievable. Dictated by Tyree Barron MD @ 09/13/2024 12:38:48 PM knee x-ray: Attestation: I have reviewed the pertinent imaging results. Radiologist's impression: Large knee joint effusion. No acute fracture or dislocation. The joint spaces are maintained. Chondrocalcinosis. Vascular calcification is present. Dictated by Margarita Mcclellan MD @ 09/13/2024 12:36:03 PM Discharge Plan Discharge Clinical Impression: Hypoglycemia, Near syncope Patient Disposition: Home, Self-Care Condition: Improved Instructions: Hypoglycemia in a Person with Diabetes (DC), Near Syncope (ED) Additional Instructions: closely monitor blood sugars. If they become unstable again return immediately for re-evaluation. Be careful when your up moving around as hyperglycemia can cause you to pass out. Prescriptions: No Action metoprolol tartrate 25 mg tablet 25 mg PO BID pravastatin 20 mg tablet 20 mg PO DAILY Xarelto 20 mg tablet 20 mg PO QPM aspirin 81 mg capsule 81 mg PO DAILY hydrocodone-acetaminophen 5-325 mg tablet 1 tab PO QID PRN dapagliflozin propanediol [Farxiga] 5 mg tablet 5 mg PO DAILY amlodipine 5 mg tablet 5 mg PO DAILY gabapentin 300 mg capsule 300 mg PO DAILY insulin lispro 100 unit/mL solution 1 sliding scale dose continuous subcutaneous infusion Q24H Rx Instructions: INSULIN PUMP - FOLLOW SLIDING SCALE UP TO 75 UNITS IN 24 HOURS VIA INSULIN PUMP omeprazole 20 mg capsule,delayed release(DR/EC) 20 mg PO DAILY cholecalciferol (vitamin D3) 25 mcg (1,000 unit) capsule 25 mcg PO DAILY Spiriva Respimat 2.5 mcg/actuation mist 2 inh inhalation Q24H latanoprost 0.005 % drops 1 drp ophthalmic (eye) QPM Miebo (PF) 100 % drops 1 drp ophthalmic (eye) QID Follow Up/Referrals: Khari Richards MD [Primary Care Provider] - Stand Alone Forms: mii Info Instructions
[2024-09-13 11:44] LABS: Basophils Absolute Auto 0.02 K/uL (0.00-0.30); Basophils Percent Auto 0.4 % (0.0-3.0); Eosinophils Absolute Auto 0.23 K/uL (0.00-0.50); Eosinophils Percent Auto 4.3 % (0.0-7.0); Hematocrit 28.2 % (33.0-51.0); Hemoglobin* 8.8 gm/dL (12.0-16.0); Immature Granulocytes Abs Auto 0.02 K/uL (0.00-0.30); Immature Granulocytes Pct Auto 0.4 %; Lymphocytes Absolute Auto 1.14 K/uL (0.90-2.90); Lymphocytes Percent Auto 21.6 % (20-44); Mean Corpuscular HGB Conc 31 gm/dL (32-36); Mean Corpuscular Hemoglobin 30 pg (26-34); Mean Corpuscular Volume 95 fL (80-100); Monocytes Percent Auto 12.1 % (0.0-11.0); Neutrophils Absolute Auto 3.24 K/uL (1.7-7.0); Neutrophils Percent Auto 61.2 % (42.0-72.0); Platelet Count* 293 K/uL (140-440); RDW Coefficient of Variation % 15.5 % (11.5-15.5); Red Blood Count 2.96 m/uL (4.00-5.20); White Blood Count* 5.29 K/uL (4.50-11.00)
[2024-09-13 11:57] LABS: Slide Review Reflex No
[2024-09-13 12:01] LABS: Chloride* 106 mmol/L (96-114)
[2024-09-13 12:02] LABS: Albumin* 3.3 g/dL (3.3-5.0); Potassium* 3.9 mmol/L (3.6-5.1); Sodium* 136 mmol/L (135-149)
[2024-09-13 12:04] LABS: Alanine Aminotransferase* 14 U/L (4-35); Anion Gap 8 mEq/L (7-15); Aspartate Amino Transferase* 27 U/L (12-35); Blood Urea Nitrogen* 25 mg/dL (7-30); Carbon Dioxide* 22 mmol/L (20-32); Creatinine* 1.4 mg/dL (0.5-1.5); Est. Creatinine Clearance* 30.17; Estimated Glomerular Filt Rate 39 ml/min; Total Protein* 5.8 g/dL (6.0-8.3)
--- NOTE | 2024-09-13 12:04 | CRLHL7_ITS ---
For Patients: As a result of the Cures Act, medical imaging exams and procedure reports are released immediately into your electronic medical record. You may view this report before your referring provider. If you have questions, please contact your health care provider. INDICATION: fall, hit head, low back pain, small cell lung ca with brain mets. TECHNIQUE: CT lumbar spine without contrast. COMPARISON: None. FINDINGS: Vertebrae: Diffuse osseous demineralization. No evident acute fracture, traumatic subluxation, or aggressive osseous lesions. Discs and facet joints: There are diffuse degenerative changes in the disc spaces and facet joints. Extraspinal findings: Please see the separately dictated same day CT chest abdomen pelvis. IMPRESSION: 1. No sign of acute injury. 2. Multilevel degenerative spondylosis. Please note that all CT scans at this facility use dose modulation, iterative reconstruction, and/or weight-based dosing when appropriate to reduce radiation dose to as low as reasonably achievable. Dictated by Tyree Barron MD @ 09/13/2024 12:38:48 PM (Electronically Signed)
[2024-09-13 12:05] LABS: Alkaline Phosphatase* 86 U/L (40-150); Bilirubin Total* 0.3 mg/dL (0.1-1.5); Calcium* 8.7 mg/dL (8.4-10.6); Glucose* 75 mg/dL (60-115); Magnesium* 1.9 mg/dL (1.5-2.6)
[2024-09-13 12:17] LABS: Troponin I* 0.02 ng/mL (0.01-0.04)
[2024-09-13 12:19] LABS: NT Pro B Type NatriureticPept* 496 pg/mL
--- NOTE | 2024-09-13 12:20 | CRLHL7_ITS ---
For Patients: As a result of the Century Cures Act, medical imaging exams and procedure reports are released immediately into your electronic medical record. You may view this report before your referring provider. If you have questions, please contact your health care provider. Indication: Fall, right knee pain. Technique: Right knee 3 views. Comparison: None. Findings/ Impression: Large knee joint effusion. No acute fracture or dislocation. The joint spaces are maintained. Chondrocalcinosis. Vascular calcification is present. Dictated by Margarita Mcclellan MD @ 09/13/2024 12:36:03 PM (Electronically Signed)
--- OUTSIDE RECORDS SUMMARY | 2024-09-13 12:35 | XMS_ITS | Encounter Summary ---
Author Organization [facility] Address [address] [place] [address] Care Team Providers Care Burr Filer Name Role Phone Jenny Vaca M.D. Primary Care Provider [phone] Encounter Details Date Type Department Care Team (Late st Contact Info) Description 09/07/2024 Documentation Department of Radiation Oncology in [place], [place] [address] [place] [phone] Franny Dutta M.D. [address] [place] [address] Social History Tobacco Use Types Packs/Day Years Used Date Smoking Tobacco: Every Day Cigarettes 0.5 60 Passive Smoke Exposure: Current Smokeless Tobacco: Never Alcohol Use Standard Drinks/Week Comments Yes 1 (1 standard drink = 0.6 oz pur e alcohol) 1 beer per night [facility] Utilities Answer Date Recorded In the past 12 months has [employer], gas, oil, or water [employer] threatened to shut off services in your home? No 07/08/2023 Humiliation, Afraid, Rape, and Kick questionnair e Answer Date Recorded Within the last year, have y ou been afraid of your partner or ex-partner? No 07/08/2023 Within the last year, have y ou been humiliated or emotionally abused in other ways by your partner or ex-partner? No Within the last year, have y ou been kicked, hit, slapped, or otherwise physically hurt by your partner or ex-partner? No 07/08/2023 Within the last year, have y ou been raped or forced to have any kind of sexual activity by your partner or ex-partner? No 07/08/2023 Social Connection and Isolat ion Panel [NHANES] Answer Date Recorded In a typical week, how many times do you talk on the phone with family, friends, or neighbors? Twice a week 09/27/2022 How often do you get togethe r with friends or relatives? Once a week 09/27/2022 How often do you attend chur or spiritism services? More than 4 times per year 09/27/2022 Do you belong to any clubs o r organizations such as alevism groups, unions, fraternal or athletic groups, or school groups? No 09/27/2022 How often do you attend meet ings of the clubs or organizations you belong to? Never 09/27/2022 Are you , , di vorced, , never , or living with a partner? 09/27/2022 AUDIT-C Answer Date Recorded Q1: How often do you have a drink containing alc ohol? Monthly or less 09/27/2022 Q2: How many drinks containi ng alcohol do you have on a typical day when you are drinking? 1 or 2 09/27/2022 Q3: How often do you have si x or more drinks on one occasion? Never 09/27/2022 Overall Financial Resource Strain (CARDIA) Answe r Date Recorded How hard is it for you to pa y for the very basics like food, housing, medical care, and heating? Somewhat hard 09/27/2022 PHQ-2 Answer Date Recorded PHQ-2 Score 0 06/18/2024 [facility] Occupat ional Health - Occupational Stress Questionnaire Answer Date Recorded Do you feel stress - tense, restless, nervous, or anxious, or unable to sleep at night because your mind is troubled all the time - these days? To some extent 09/27/2022 Exercise Vital Sign Answer Date Recorde d On average, how many days pe r week do you engage in moderate to strenuous exercise (like a brisk walk)? 7 days 07/08/2023 On average, how many minutes do you engage in exercise at this level? 10 min 07/08/2023 Hunger Vital Sign Answer Date Recorded Within the past 12 months, y ou worried that your food would run out before you got the money to buy more. Never true 07/08/19 24 Within the past 12 months, t he food you bought just didn't last and you didn't have money to get more. Never true 07/08/2023 PRAPARE - Transportation Answer Date Re corded In the past 12 months, has l ack of transportation kept you from medical appointments or from getting medications? No 01/2024 In the past 12 months, has l ack of transportation kept you from meetings, work, or from getting things needed for daily living? No 07/08/2023 Depression Answer Date Recor ded PHQ-9 Total Score (max 27) 0 07/04 Nutrition Answer Date Recorded On average, how many serving s of fruits and vegetables do you eat per day (serving size is equal to 1 cup or approximately the size of a tennis ball)? 0-2 07/08/2023 Dental Answer Date Recorded Dental: Regular Dentist No 07/08/19 Employment Answer Date Recorded Employment status Retired 07/08/2023 Housing Stability Answer Date Recorded What is your living situation today? I have a [facility] place to live 07/08/2023 Comments No Sex and Gender Information Value Date Recorded Sex Assigned at Not on file Legal Sex Female 8:27 AM MACHINING DEPARTMENT SUPERVISOR Gender Identity Female 04/06/2017 8:58 AM MACHINING DEPARTMENT SUPERVISOR Sexual Orientation Straight 04/06/2017 8: 58 AM MACHINING DEPARTMENT SUPERVISOR documented as of this encounter Miscellaneous Notes * Radiation Completion Notes - Kurtis Sesay R.N. 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 Treatment Intent: Curative Concomitant Therapy: None Single Plan Treatment Course: [id number] Plan ID Fractions Dose / Fraction (cGy) Dose Treated (cGy) Dose Planned (cGy) First Treatment Last Treatment Elapsed Days [id number] 199909/07/2024 09/07/2024 0 Course Summary 09/07/2024 09/07/2024 0 Radiation Modality: Photons CLINICAL SUMMARY Mrs. Iva Goyal completed radiation treatment as planned without interruptions. The course of treatment was tolerated well. The patient experienced no toxicities during radiation treatment. TREATMENT RESPONSE: Response to treatment will be determined by post-treatment imaging and/or laboratory work. RECOMMENDED FOLLOW UP: Radiation Oncologist and Primary Medical Oncologist - Dr. Dutta and Dr. Vela Signed by: Aminta Sesay R.N., 09/10/2024 9:30 AM CDT [facility] [address] [place] [address] Cosigned by Franny Dutta M.D. at 09/10/2024 1:08 PM CDT documented in this encounter Plan of Treatment Upcoming Encounters Date Type Department Care Team (Late st Contact Info) Description 09/14/2024 11:00 AM CDT Admin Visit Department of Oncology in [place], [place] [address] [place] [address] 09/17/2024 8:00 AM CDT Lab Department of Infusion Therapy in [place], [place] [address] [phone] Jenny Vaca M.D. [address] [phone] 09/17/2024 1:30 PM CDT Office Visit Department of Internal Medicine in [place], [place] [address] [phone] Elissa Luo P.A.-C., M.S. [address] [phone] 09/18/2024 8:00 AM CDT Clinical Support Department of Oncology in [place], [place] [address] [place] [phone] Blossom Hernandez M.[place]., L.I.C.S.W. [address] [place] [phone] 09/20/2024 10:00 AM CDT Telemedicine Department of Oncology in [address] [phone] Kerrie Vela M.B., B.ChForeign, M.D. [address] [place] [phone] 09/24/2024 8:30 AM CDT Lab Department of Oncology in [address] [phone] Kerrie Vela M.B., B.Ch., M.D. [address] [place] [phone] 09/24/2024 9:40 AM CDT Office Visit Department of Oncology in [address] [phone] Kerrie Vela M.B., B.Ch., M.D. [address] [place] [phone] 09/24/2024 10:20 AM CDT Education Department of Oncology in [address] [phone] Kerrie Vela M.B., B.Ch., M.D. [address] [place] [phone] 09/24/2024 11:[address] [facility], [facility], [facility] [address] [place] [phone] Kerrie Vela M.B., B.ChForeign, M.DForeign [address] [place] [phone] 09/25/2024 8:[address] [facility], [facility], [facility] [address] [place] [phone] Kerrie Vela M.B., B.ChForeign, M.D. [address] [place] [phone] 09/26/2024 8:[address] [facility], [facility], [facility] [address] [place] [phone] Kerrie Vela M.B., B.Ch., M.D. [address] [place] [phone] 09/28/2024 11:45 AM CDT Lab Department of Oncology in [place], [place] [address] [place] [phone] Kerrie Vela M.B., B.Ch., M.D. [address] [place] [phone] 09/28/2024 1:40 PM CDT Office Visit Department of Oncology in [place], [place] [address] [place] [phone] Dawood Ruiz P.A.-C. [address] [place] [phone] 10/01/2024 8:[address] [facility], [facility], [facility] [address] [place] [phone] Kerrie Vela M.B., BForeignChForeign, M.DForeign [address] [place] [phone] 10/02/2024 8:[address] [facility], [facility], [facility] [address] [place] [phone] Kerrie Vela M.B., BDuran, M.D. [address] [place] [phone] 10/03/2024 8:[address] [facility], [facility], [facility] [address] [place] [phone] Kerrie Vela M.B., B., M.DForeign [address] [place] [phone] 10/10/2024 6:30 AM CDT Lab Department of Oncology in [place], [place] [address] [place] [phone] Kerrie Vela M.B., B.Ch., M.D. [address] [place] [phone] 10/10/2024 8:20 AM CDT Office Visit Department of Oncology in [place], [place] [address] [place] [phone] Brittney Stuart M.D. [address] [place] [phone] 10/10/2024 12:30 PM CDT Infusion Department of Oncology in [place], [place] [address] [place] [phone] Kerrie Vela M.B., Trevor, MPhuc [address] [place] [phone] 10/12/2024 11:20 AM CDT Office Visit Department of Oncology in [place], [place] [address] [place] [phone] Kerrie Vela M.B., BDuran, M.DForeign [address] [place] [phone] 10/17/2024 1:00 PM CDT Office Visit Department of Ophthalmology in [place], [place] [address] [place] [phone] Tomás Mcbride M.D. [address] [place] [phone] 10/23/2024 8:45 AM CDT Lab Department of Oncology in [address] [phone] Kerrie Vela M.B., B., M.DForeign [address] [place] [phone] 10/23/2024 11:00 AM CDT Office Visit Department of Oncology in [address] [phone] Kerrie Vela M.B., BDuran, M.D. [address] [place] [phone] 10/23/2024 11:30 AM CDT Appointment Department of Radiology in [place], [place] [address] [place] [address] Franny Dutta M.D. [address] [place] [phone] 10/24/2024 7:30 AM CDT Infusion Department of Oncology in [place], [place] [address] [place] [phone] Kerrie Vela M.B., B., M.DForeign [address] [place] [phone] 10/24/2024 11:00 AM CDT Appointment Department of Radiation Oncology in [place], [place] [address] [place] [phone] Franny Dutta M.D. [address] [place] [phone] 10/25/2024 11:00 AM CDT Office Visit Department of Oncology in [place], [place] [address] [place] [phone] Kerrie Vela M.B., B.ChForeign, M.D. [address] [place] [phone] 11/06/2024 7:00 AM CDT Lab Department of Oncology in [place], [place] [address] [place] [phone] Kerrie Vela M.B., B.ChForeign, M.DForeign [address] [place] [phone] 11/06/2024 9:00 AM CDT Office Visit Department of Oncology in [place], [place] [address] [place] [phone] Dawood Ruiz P.A.-C. [address] [place] [phone] 11/06/2024 10:00 AM CDT Infusion Department of Oncology in [place], [place] [address] [place] [address] Kerrie Vela M.B., B.ChForeign, M.DForeign [address] [place] [phone] 11/20/2024 6:30 AM CDT Lab Department of Laboratory Medicine and Pathology, [facility] in [place], [place] [address] [place] [phone] Kerrie Vela M.B., B.ChForeign, M.DForeign [address] [place] [phone] 11/20/2024 8:20 AM CDT Office Visit Department of Oncology in [place], [place] [address] [place] [phone] Dawood Ruiz P.A.-C. [address] [place] [phone] 11/20/2024 9:00 AM CDT Infusion Department of Oncology in [place], [place] [address] [place] [phone] Kerrie Vela M.B., B.Ch., M.D. [address] [place] [phone] 12/04/2024 8:30 AM CDT Lab Department of Laboratory Medicine and Pathology, [facility], in [place], [place] [address] [place] [phone] Kerrie Vela M.B., B.Ch., M.D. [address] [place] [phone] 12/04/2024 10:20 AM CDT Office Visit Department of Oncology in [place], [place] [address] [place] [phone] Kerrie Vela M.B., BDuran, MPhuc [address] [place] [phone] 12/04/2024 11:00 AM CDT Infusion Department of Oncology in [place], [place] [address] [place] [phone] Kerrie Vela M.B., BDuran, M.D. [address] [place] [phone] documented as of this encounter Visit Diagnoses Not on filedocumented in this encounter Additional Health Concerns Assessment Noted Time PHQ-9 Depression Total Score: 0 07/04/19 24 9:20 AM MACHINING DEPARTMENT SUPERVISOR documented as of this encounter Care Teams Burr Filer Relationship Specialty Start Date End Date Jenny Vaca M.D. [address] [phone] PCP - General 11/11/16 documented as of this encounter
--- OUTSIDE RECORDS SUMMARY | 2024-09-13 12:35 | XMS_ITS | Encounter Summary ---
[facility] Address [address] [place] [address] Care Team Providers Care City Bailiff Name Role Phone Jenny Vaca M.D. Primary Care Provider [phone] Reason for Referral * Outpatient (Routine) - Authorized Specialty Diagnoses / Procedures Referred By Cynthia eagle Referred To Contact Radiation Oncology Franny Dutta M.D. [address] [place] [address] Phone: tel: [facility] Region Referral ID Status Reason Start Date Expiration Date V isits Requested Visits Authorized [id number] Authorized 09/07/2024 03/09/2026 1 1 Scheduling Instructions After brain MRI * MRI/CAT/PET Scan (Routine) - Authorized Specialty Diagnoses / Procedures Referred By Cynthia eagle Referred To Contact Radiology Diagnoses Secondary Malignant Neoplasm Brain (HCC) Procedures MR Brain without and with IV Contrast Franny Dutta M.D. 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 [address] [place] [address] Phone: tel: fax: [facility] Region Referral ID Status Reason Start Date Expiration Date V isits Requested Visits Authorized [id number] Authorized 07/31/2024 10/31/2025 10 10 Encounter Details Date Type Department Care Team (Latest Contact Info) Description 09/07/2024 9:29 AM CDT - 09/07/2024 11:25 AM CDT Hospital Encounter Department of Radiation Oncology in [place], [place] [address] [place] [phone] Franny Dutta M.D. 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 More than 4 times per year 09/27/2022 Do you belong to any clubs o r organizations such as yazidi groups, unions, fraternal or athletic groups, or [...] Answer Date Recorded PHQ-2 Score 0 06/18/2024 [facility] - Occupational Stress [...] Date Recorded Dental: Regular Dentist No 07/08/19 24 Employment Answer Date Recorded Employment status Retired 07/08/2023 Housing Stability Answer Date Recorded What is your living situation today? I have a [facility] place to live 07/08/2023 Comments No Sex and Gender Information Value Date Recorded Sex Assigned at Not on file Legal Sex Female 8:27 AM ELECTRIC LINEMAN Gender Identity Female 04/06/2017 8:58 AM ELECTRIC LINEMAN Sexual Orientation Straight 04/06/2017 8: 58 AM ELECTRIC LINEMAN documented as of this encounter Medications at Time of Discharge albuterol 90 mcg/actuation inhaler Inhale 2 puffs every 4 (four) hours as needed for wheezing or shortness of breath. 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 90 tablet 3 4 11/23/[address] tablet Take 81 mg by mouth daily. benzonatate (Tessalon Perles) 100 mg capsule Take 1 capsule by mouth three times daily as needed for cough 20 capsule 3 4 blood sugar diagnostic (Contour Next Test Strips) strips USE 1 STRIP TO CHECK GLUCOSE FIVE TIMES DAILY 500 strip 3 1 blood-glucose meter,continuous (FreeStyle Canelo 3 [place]) 1 each (1 Device total) as directed. 1 each 4 blood-glucose sensor (FreeStyle Canelo 3 Sensor) device 1 each every 14 (fourteen) days. 6 each 3 4 budesonide (Entocort EC) 3 mg 24 hr capsule Take 2 capsules (6 mg total) by mouth daily with morning meal. 90 capsule 3 4 codeine-guaiFENes in (Robitussin AC) 10-100 mg/5 mL liquid Take 5 mL by mouth every 8 (eight) hours as needed for cough. 237 mL 1 4 dicyclomine (BentyL) 10 mg capsule Take 1 capsule (10 mg total) by mouth 4 (four) times a day as needed (abdominal pain or cramps). 30 capsule 3 4 diphenhydrAMINE (BenadryL) 50 mg capsule Take 1 capsule (50 mg) 1 hour prior to exam. 1 capsule 4 diphenoxylate-atr opine (LomotiL) 2.5-0.025 mg per tablet TAKE 1 TABLET BY MOUTH 4 TIMES DAILY NEEDED FOR DIARRHEA 30 tablet 4 estradioL (Estrace) 0.1 mg/g (0.01%) vaginal creamIndications: Atrophy Vagina Due To Estrogen Deficiency Insert 1 g into the vagina 3 (three) times a week. 42.5 g 5 4 Farxiga 5 mg tablet Take 1 tablet by mouth once daily 90 tablet 3 5 fluticasone propionate (FLONASE) 50 mcg/actuation nasal spray Administer 2 sprays into each nostril daily as needed for allergies. furosemide (LASIX) 20 mg tablet Take 1 tablet (20 mg total) by mouth daily as needed (fluid retention). 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 lancets (ACCU-CHEK SOFTCLIX LANCETS) misc Use to test 4 times daily Dx: E11.40 Lifetime need 400 each 3 8 latanoprost (Xalatan) 0.005 % ophthalmic solution INSTILL 1 DROP INTO EACH EYE AT BEDTIME 7.5 mL 3 5 loperamide (IMODIUM A-D) 2 mg tablet Take 2 mg by mouth 4 (four) times a day as needed for diarrhea. 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 90 tablet 3 4 methocarbamoL (Robaxin) 500 mg tablet Take 1 tablet (500 mg total) by mouth 3 (three) times a day as needed for muscle spasms. 45 tablet 4 metoprolol tartrate (Lopressor) 25 mg tablet Take 1.5 tablets (37.5 mg total) by mouth 2 (two) times a day. 270 tablet 3 5 neomycin-polymyxi n B-dexameth (Maxitrol) 3.5 mg/g-10,000 unit/g-0.1 % ophthalmic ointment Apply to both eyelids twice a day. 3.5 g 5 omeprazole (PriLOSEC) [address] capsule Take 1 capsule by mouth once daily 90 capsule 3 4 perfluorohexyloct ane, PF, (Miebo) 100 % ophthalmic drops Administer 1 drop into both eyes 4 (four) times a day. 3 mL 11 5 polyvinyl alcohol/povidone/ PF (REFRESH CLASSIC, PF, OPHT) Administer 1 drop into both eyes 4 (four) times a day as needed (Dry eye). pravastatin (PravachoL) 20 mg tablet Take 1 tablet (20 mg total) by mouth daily. 90 tablet 3 5 06/22/19 26 propylene glycoL (Regan Meibo Tears) 0.6 % ophthalmic solution Administer 1 drop into both eyes 3 (three) times a day. 5 mL 11 5 rivaroxaban (Xarelto) 20 mg tablet Take 1 tablet (20 mg total) by mouth daily with dinner. 90 tablet 3 4 sodium chloride (NEBUSAL) 3 % nebulizer solution Inhale 4 mL by nebulization 2 (two) times a day as needed for cough. 750 mL 11 3 tiotropium (Spiriva Respimat) 2.5 mcg/actuation inhaler Inhale 2 puffs daily. 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 30 tablet 3 4 09/13/19 25 documented as of this encounter Progress Notes * Franny Dutta M.D. 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 Iva Goyal a 79 y.o. reports that she feels fine after the SBRT. She states that her main problem is itching around her belly that is not allowing her to sleep. She has taken Zytrec and Claritin as recommended, but still has the itching. She states that this is what happened to her whenher cancer initially returned about 5 or 8 years ago. She has no rash associated with this. OBJECTIVE There were no vitals taken for this visit. PHYSICAL EXAM General appearance: alert, appears stated age, cooperative, and no distress Abdomen: No rash along her belly or back where she has the itching. 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 I suggested that she add Benadryl at night to see if this helps her sleep. She knows to check her insulin pump function 2 hours after her treatment today. She will be seeing Dr. Vela next week for possible new systemic options and hopefully this will help with her itching if it is related to her cancer returning. I will see her back in 6 weeks with another brain MRI. She knows to contact us if she has any difficulties. Signed by: Franny Dutta M.D. 09/07/2024 10:58 AM CDT documented in this encounter Plan of Treatment Upcoming Encounters Date Type Department Care Team (Late st Contact Info) Description 09/14/2024 11:00 AM CDT Admin Visit Department of Oncology in [place], [place] [address] [place] [phone] 09/17/2024 8:00 AM CDT Lab Department of Infusion Therapy in [place], [place] [address] [phone] Jenny Vaca M.D. [address] [address] 09/17/2024 1:30 PM CDT Office Visit Department of Internal Medicine in [place], [place] [address] [phone] Elissa Luo, Jaime-Hesham., M.S. [address] [address] 09/18/2024 8:00 AM CDT Clinical Support Department of Oncology in [place], [place] [address] [place] [phone] Blossom Hernandez M.S.W., L.I.C.S.W. [address] [place] [phone] 09/20/2024 10:00 AM CDT Telemedicine Department of Oncology in [place], [place] [address] [place] [phone] Kerrie Vela M.B., BDuran, M.DForeign [address] [place] [phone] 09/24/2024 8:30 AM CDT Lab Department of Oncology in [place], [place] [address] [place] [phone] Kerrie Vela M.B., BDuran, M.DForeign [address] [place] [phone] 09/24/2024 9:40 AM CDT Office Visit Department of Oncology in [place], [place] [address] [place] [phone] Kerrie Vela M.B., BDuran, M.DForeign [address] [place] [phone] 09/24/2024 10:20 AM CDT Education Department of Oncology in [place], [place] [address] [place] [phone] Kerrie Vela M.B., BDuran, M.DForeign [address] [place] [phone] 09/24/2024 11:30 AM CDT Appointment [facility], [facility], [facility] [address] [place] [address] Kerrie Vela M.B., BDuran, M.DForeign [address] [place] [phone] 09/25/2024 8:30 AM CDT Appointment [facility], [facility], [facility] Level [address] [place] [phone] Kerrie Vela M.B., BDuran, MForeignDForeign [address] [place] [phone] 09/26/2024 8:30 AM CDT Appointment [facility], [facility], [facility] Level [address] [place] [phone] Kerrie Vela M.B., BDuran, M.DForeign [address] [place] [phone] 09/28/2024 11:45 AM CDT Lab Department of Oncology in [place], [place] [address] [place] [phone] Kerrie Vela M.B., BDuran, M.DForeign [address] [place] [phone] 09/28/2024 1:40 PM CDT Office Visit Department of Oncology in [place], [place] [address] [place] [phone] Dawood Ruiz P.A.-C. [address] [place] [phone] 10/01/2024 8:00 AM CDT Appointment [facility], [facility], [facility] Level [address] [place] [address] Kerrie Vela M.B., BDuran, M.DForeign [address] [place] [phone] 10/02/2024 8:00 AM CDT Appointment [facility], [facility], [facility] Level [address] [place] [address] Kerrie Vela M.B., BDuran, MPhuc [address] [place] [phone] 10/03/2024 8:00 AM CDT Appointment [facility], [facility], Lobby Level [address] [place] [phone] Kerrie Vela M.B., BDuran, M.Cecelia [address] [place] [phone] 10/10/2024 6:30 AM CDT Lab Department of Oncology in [place], [place] [address] [place] [phone] Kerrie Vela M.B., B., M.DForeign [address] [place] [phone] 10/10/2024 8:20 AM CDT Office Visit Department of Oncology in [place], [place] [address] [place] [phone] Brittney Stuart M.D. [address] [place] [phone] 10/10/2024 12:30 PM CDT Infusion Department of Oncology in [place], [place] [address] [place] [phone] Kerrie Vela M.B., B.ChForeign, M.DForeign [address] [place] [phone] 10/12/2024 11:20 AM CDT Office Visit Department of Oncology in [place], [place] [address] [place] [phone] Kerrie Vela M.B., B., M.D. [address] [place] [phone] 10/17/2024 1:00 PM CDT Office Visit Department of Ophthalmology in [place], [place] [address] [place] [phone] Tomás Mcbride M.D. [address] [place] [phone] 10/23/2024 8:45 AM CDT Lab Department of Oncology in [place], [place] [address] [place] [phone] Kerrie Vela M.B., B.ChForeign, M.DForeign [address] [place] [phone] 10/23/2024 11:00 AM CDT Office Visit Department of Oncology in [place], [place] [address] [place] [phone] Kerrie Vela M.B., B.Ch., M.D. [address] [place] [phone] 10/23/2024 11:30 AM CDT Appointment Department of Radiology in [place], [place] [address] [place] [phone] Franny Dutta M.D. [address] [place] [phone] 10/24/2024 7:30 AM CDT Infusion Department of Oncology in [place], [place] [address] [place] [phone] Kerrie Vela M.B., B.Ch., M.D. [address] [place] [phone] 10/24/2024 11:00 AM CDT Appointment Department of Radiation Oncology in [place], [place] [address] [place] [phone] Franny Dutta M.D. [address] [place] [phone] 10/25/2024 11:00 AM CDT Office Visit Department of Oncology in [place], [place] [address] [place] [phone] Kerrie Vela M.B., B., M.DForeign [address] [place] [phone] 11/06/2024 7:00 AM CDT Lab Department of Oncology in [place], [place] [address] [place] [phone] Kerrie Vela M.B., B.ChForeign, M.DForeign [address] [place] [phone] 11/06/2024 9:00 AM CDT Office Visit Department of Oncology in [place], [place] [address] [place] [phone] Dawood Ruiz P.A.-C. [address] [place] [phone] 11/06/2024 10:00 AM CDT Infusion Department of Oncology in [place], [place] [address] [place] [phone] Kerrie Vela M.B., B.ChForeign, M.D. [address] [place] [phone] 11/20/2024 6:30 AM CDT Lab Department of Laboratory Medicine and Pathology, [facility], in [place], [place] [address] [place] [phone] Kerrie Vela M.B., BForeignChForeign, M.DForeign [address] [place] [phone] 11/20/2024 8:20 AM CDT Office Visit Department of Oncology in [place], [place] [address] [place] [phone] Dawood Ruiz P.A.-C. [address] [place] [phone] 11/20/2024 9:00 AM CDT Infusion Department of Oncology in [place], [place] [address] [place] [phone] Kerrie Vela M.B., B.ChForeign, M.DForeign [address] [place] [phone] 12/04/2024 8:30 AM CDT Lab Department of Laboratory Medicine and Pathology, [facility], in [place], [place] [address] [place] [phone] Kerrie Vela M.B., B.ChForeign, M.DForeign [address] [place] [phone] 12/04/2024 10:20 AM CDT Office Visit Department of Oncology in [place], [place] [address] [place] [phone] Kerrie Vela M.B., B.Ch., M.D. [address] [place] [phone] 12/04/2024 11:00 AM CDT Infusion Department of Oncology in [place], [place] [address] [place] [phone] Kerrie Vela M.B., B.Ch., M.D. 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) Once for 1 Occurrences starting 09/07/2024 until 09/07/2024 MR Brain without and with IV Contrast Imaging RAD - Routine (most inpatients and all outpatients) Secondary Malignant Neoplasm Brain (HCC) Expected: 10/21/2024, Expires: 12/07/2025 Scheduled Referrals Name Type Priority Associated Diagnoses Orde r Schedule Radiation Oncology office visit (clinic) Outpatient Referral Routine Expected: 10/21/2024 (Approximate), Expires: 09/07/2025 documented as of this encounter Visit Diagnoses Diagnosis 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 [address] [place] [phone] PCP - General 11/11/16 documented as of this encounter
--- OUTSIDE RECORDS SUMMARY | 2024-09-13 12:35 | XMS_ITS | Encounter Summary ---
Author Organization [facility] Address [address] [place] [address] Care Team Providers Care Parts Department Supervisor Name Role Phone Jenny Vaca M.D. Primary Care Provider [phone] Encounter Details Date Type Department Care Team (Late st Contact Info) Description 09/06/2024 Clinical Communication Department of Oncology in [place], [place] [address] [place] [phone] Marlo Diallo M.D. [address] [place] [phone] Social History Tobacco Use Types Packs/Day Years Used Date Smoking Tobacco: Every Day Cigarettes 0.5 60 Passive Smoke Exposure: Current Smokeless Tobacco: Never Alcohol Use Standard Drinks/Week Comments Yes 1 (1 standard drink = 0.6 oz pur e alcohol) 1 beer per night [facility] Utilities Answer Date Recorded In the past 12 months has e [employer], gas, oil, or water [employer] ([place]) threatened to shut off services in your [...] How often do you attend chur or gnosticism services? More than 4 times per year 09/27/2022 Do you belong to any clubs o r organizations such as scientology groups, unions, fraternal or athletic groups, or [...] Answer Date Recorded PHQ-2 Score 0 06/18/2024 [facility] - Occupational Stress [...] your living situation today? 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 [address] [place] [address] 09/17/2024 1:30 PM CDT Office Visit Department of Internal Medicine in [place], [place] [address] [place] [facility] [place] [place] [address] Elissa Luo P.A.-C., M.S. [address] [place] [address] 09/18/2024 8:00 AM CDT Clinical Support Department of Oncology in [address] [phone] Blossom Hernandez M.S.W., L.I.C.S.W. [address] [place] [phone] 09/20/2024 10:00 AM CDT Telemedicine Department of Oncology in [place], [place] [address] [place] [phone] Kerrie Vela M.B., B.Ch., M.D. [address] [place] [phone] 09/24/2024 8:30 AM CDT Lab Department of Oncology in [place], [place] [address] [place] [phone] Kerrie Vela M.B., B.Ch., M.D. [address] [place] [phone] 09/24/2024 9:40 AM CDT Office Visit Department of Oncology in [place], [place] [address] [place] [phone] Kerrie Vela M.B., Trevor, MPhuc [address] [place] [phone] 09/24/2024 10:20 AM CDT Education Department of Oncology in [place], [place] [address] [place] [phone] Kerrie Vela M.B., Trevor, MPhuc [address] [place] [phone] 09/24/2024 11:30 AM CDT Appointment [facility], [facility], [facility] [address] [place] [phone] Kerrie Vela M.B., Trevor, MPhuc [address] [place] [phone] 09/25/2024 8:30 AM CDT Appointment [facility], [facility], [facility] [address] [place] [phone] Kerrie Vela M.B., Trevor, MPhuc [address] [place] [phone] 09/26/2024 8:30 AM CDT Appointment [facility], [facility], [facility] [address] [place] [phone] Kerrie Vela M.B., Trevor, M.DForeign [address] [place] [phone] 09/28/2024 11:45 AM CDT Lab Department of Oncology in [place], [place] [address] [place] [phone] Kerrie Vela M.B., BDuran, M.DForeign [address] [place] [phone] 09/28/2024 1:40 PM CDT Office Visit Department of Oncology in [place], [place] [address] [place] [phone] Dawood Ruiz P.A.-C. [address] [place] [phone] 10/01/2024 8:00 AM CDT Appointment [facility], [facility], [facility] [address] [place] [phone] Kerrie Vela M.B., Trevor, MPhuc [address] [place] [phone] 10/02/2024 8:00 AM CDT Appointment [facility], [facility], [facility] [address] [place] [phone] Kerrie Vela M.B., Trevor, MPhuc [address] [place] [phone] 10/03/2024 8:00 AM CDT Appointment [facility], [facility], [facility] [address] [place] [phone] Kerrie Vela M.B., B.ChForeign, M.DForeign [address] [place] [phone] 10/10/2024 6:30 AM CDT Lab Department of Oncology in [place], [place] [address] [place] [phone] Kerrie Vela M.B., Trevor, MPhuc [address] [place] [phone] 10/10/2024 8:20 AM CDT Office Visit Department of Oncology in [place], [place] [address] [place] [phone] Brittney Stuart M.D. [address] [place] [phone] 10/10/2024 12:30 PM CDT Infusion Department of Oncology in [place], [place] [address] [place] [phone] Kerrie Vela M.B., B., M.DForeign [address] [place] [phone] 10/12/2024 11:20 AM CDT Office Visit Department of Oncology in [address] [phone] Kerrie Vela M.B., B.ChForeign, M.D. [address] [place] [phone] 10/17/2024 1:00 PM CDT Office Visit Department of Ophthalmology in [place], [place] [address] [place] [phone] Tomás Mcbride M.D. [address] [place] [phone] 10/23/2024 8:45 AM CDT Lab Department of Oncology in [place], [place] [address] [place] [phone] Kerrie Vela M.B., B.ChForeign, M.D. [address] [place] [phone] 10/23/2024 11:00 AM CDT Office Visit Department of Oncology in [place], [place] [address] [place] [phone] Kerrie Vela M.B., BDuran, MPhuc [address] [place] [phone] 10/23/2024 11:30 AM CDT Appointment Department of Radiology in [place], [place] [address] [place] [address] Franny Dutta M.D. [address] [place] [phone] 10/24/2024 7:30 AM CDT Infusion Department of Oncology in [place], [place] [address] [place] [phone] Kerrie Vela M.B., B., MForeignDForeign [address] [place] [phone] 10/24/2024 11:00 AM CDT Appointment Department of Radiation Oncology in [place], [place] [address] [place] [phone] Franny Dutta M.D. [address] [place] [phone] 10/25/2024 11:00 AM CDT Office Visit Department of Oncology in [place], [place] [address] [place] [phone] Kerrie Vela M.B., B., M.D. [address] [place] [phone] 11/06/2024 7:00 AM CDT Lab Department of Oncology in [place], [place] [address] [place] [phone] Kerrie Vela M.B., BForeignChForeign, M.DForeign [address] [place] [phone] 11/06/2024 9:00 AM CDT Office Visit Department of Oncology in [place], [place] [address] [place] [phone] Dawood Ruiz, P.A.-CForeign [address] [place] [phone] 11/06/2024 10:00 AM CDT Infusion Department of Oncology in [place], [place] [address] [place] [phone] Kerrie Vela M.B., B.ChForeign, M.DForeign [address] [place] [phone] 11/20/2024 6:30 AM CDT Lab Department of Laboratory Medicine and Pathology, [facility], in [place], [place] [address] [place] [phone] Kerrie Vela M.B., B.ChForeign, M.DForeign [address] [place] [phone] 11/20/2024 8:20 AM CDT Office Visit Department of Oncology in [place], [place] [address] [place] [phone] Dawood Ruiz, P.A.-CForeign [address] [place] [phone] 11/20/2024 9:00 AM CDT Infusion Department of Oncology in [place], [place] [address] [place] [phone] Kerrie Vela M.B., B.ChForeign, M.D. [address] [place] [phone] 12/04/2024 8:30 AM CDT Lab Department of Laboratory Medicine and Pathology, [facility], in [place], [place] [address] [place] [phone] Kerrie Vela M.B., B.Ch., M.D. [address] [place] [phone] 12/04/2024 10:20 AM CDT Office Visit Department of Oncology in [place], [place] [address] [place] [phone] Kerrie eVla M.B., B., M.D. [address] [place] [phone] 12/04/2024 11:00 AM CDT Infusion Department of Oncology in [place], [place] [address] [place] [phone] Kerrie Vela M.B., B.Ch., M.D. [address] [place] [phone] documented as of this encounter Visit Diagnoses Not on filedocumented in this encounter Additional Health Concerns Assessment Noted Time PHQ-9 Depression Total Score: 0 07/04/19 24 9:20 AM COFFEE MACHINE TECHNICIAN documented as of this encounter Care Teams Parts Department Supervisor Relationship Specialty Start Date End Date Jenny Vaca M.D. [address] [place] [phone] PCP - General 11/11/16 documented as of this encounter
--- OUTSIDE RECORDS SUMMARY | 2024-09-13 12:35 | XMS_ITS | Encounter Summary ---
Author Organization [facility] Address [address] [place] [address] Care Team Providers Care Supervisor Microbiology Technologists Name Role Phone Jenny Vaca M.D. Primary Care Provider [phone]- [phone] Encounter Details Date Type Department Care Team (Late st Contact Info) Description 09/13/2024 Clinical Communication Department of Radiation Oncology in [place], [place] [address] [place] [phone] Franny Dutta M.D. [address] [place] [address] Social History Tobacco Use Types Packs/Day Years Used Date Smoking Tobacco: Every Day Cigarettes 0.5 60 Passive Smoke Exposure: Current Smokeless Tobacco: Never Alcohol Use Standard Drinks/Week Comments Yes 1 (1 standard drink = 0.6 oz pur e alcohol) 1 beer per night [facility] Utilities Answer Date Recorded In the past 12 months has [employer], gas, oil, or water [employer] threatened to shut off services in your [...] How often do you attend chur or worship services? More than 4 times per year 09/27/2022 Do you belong to any clubs o r organizations such as jew groups, unions, fraternal or athletic groups, or [...] Answer Date Recorded PHQ-2 Score 0 06/18/2024 [facility] [place] of Occupat ional Health - Occupational Stress [...] your living situation today? I have a [facility] place to live 07/08/2023 Comments No Sex and Gender Information Value Date Recorded Sex Assigned at Not on file Legal Sex Female 8:27 AM RIPRAP PLACER Gender Identity Female 04/06/2017 8:58 AM RIPRAP PLACER Sexual Orientation Straight 04/06/2017 8: 58 AM RIPRAP PLACER documented as of this encounter Miscellaneous Notes * Telephone Encounter - Devyn Gomez - 09/13/2024 10:29 AM CDT Patient called stating that she had just fallen and hit her head. She stated that MIKAYLA had said if she ever falls to go to the ER. She is wanting to know if someone from her care team here can call and discuss with her and also if someone could call and update the ER. I prompted her to leave as soonas she could to go to the ER. She stated she was going to go to [facility] as that is where she prefers. documented in this encounter Plan of Treatment Upcoming Encounters Date Type Department Care Team (Late st Contact Info) Description 09/14/2024 11:00 AM CDT Admin Visit Department of Oncology in [place], [place] [address] [place] [phone] 09/17/2024 8:00 AM CDT Lab Department of Infusion Therapy in [place], [place] [address] [phone] Jenny Vaca M.D. [address] [address] 09/17/2024 1:30 PM CDT Office Visit Department of Internal Medicine in [place], [place] [address] [phone] Elissa Luo, Jaime-Hesham., M.S. [address] [phone] 09/18/2024 8:00 AM CDT Clinical Support Department of Oncology in [place], [place] [address] [place] [phone] Blossom Hernandez M.S.W., L.I.C.S.W. [address] [place] [phone] 09/20/2024 10:00 AM CDT Telemedicine Department of Oncology in [place], [place] [address] [place] [phone] Kerrie Vela M.B., B.Ch., M.D. [address] [place] [phone] 09/24/2024 8:30 AM CDT Lab Department of Oncology in [place], [place] [address] [place] [phone] Kerrie Vela M.B., BForeignChForeign, M.DForeign [address] [place] [address] 09/24/2024 9:40 AM CDT Office Visit Department of Oncology in [place], [place] [address] [place] [phone] Kerrie Vela M.B., B.ChForeign, M.DForeign [address] [place] [phone] 09/24/2024 10:20 AM CDT Education Department of Oncology in [place], [place] [address] [place] [phone] Kerrei Vela M.B., BForeignChForeign, M.DForeign [address] [place] [phone] 09/24/2024 11:30 AM CDT Appointment [facility], [facility], [facility] [address] [place] [phone] Kerrie Vela M.B., B.ChForeign, M.DForeign [address] [place] [phone] 09/25/2024 8:30 AM CDT Appointment [facility], [facility], [facility] [address] [place] [phone] Kerrie Vela M.B., B.ChForeign, M.DForeign [address] [place] [phone] 09/26/2024 8:30 AM CDT Appointment [facility], [facility], [facility] [address] [place] [phone] Kerrie Vela M.B., BDuran, M.DForeign [address] [place] [phone] 09/28/2024 11:45 AM CDT Lab Department of Oncology in [place], [place] [address] [place] [phone] Kerrie Vela M.B., B.ChForeign, M.DForeign [address] [place] [address] 09/28/2024 1:40 PM CDT Office Visit Department of Oncology in [place], [place] [address] [place] [phone] Dawood Ruiz P.A.-C. [address] [place] [phone] 10/01/2024 8:00 AM CDT Appointment [facility], [facility], [facility] [address] [place] [phone] Kerrie Vela M.B., B.Ch., M.DForeign [address] [place] [phone] 10/02/2024 8:00 AM CDT Appointment [facility], [facility], [facility] [address] [place] [phone] Kerrie Vela M.B., B.ChForeign, M.DForeign [address] [place] [phone] 10/03/2024 8:[address] [facility], [facility], [facility], Lobby Level [address] [place] [address] Kerrie Vela M.B., BDuran, M.Cecelia [address] [place] [phone] 10/10/2024 6:30 AM CDT Lab Department of Oncology in [place], [place] [address] [place] [phone] Kerrie Vela M.B., B., M.DForeign [address] [place] [phone] 10/10/2024 8:20 AM CDT Office Visit Department of Oncology in [place], [place] [address] [place] [phone] Brittney Stuart M.D. [address] [place] [phone] 10/10/2024 12:30 PM CDT Infusion Department of Oncology in [place], [place] [address] [place] [phone] Kerrie Vela M.B., B.ChForeign, M.D. [address] [place] [phone] 10/12/2024 11:20 AM CDT Office Visit Department of Oncology in [place], [place] [address] [place] [phone] Kerrie Vela M.B., B., M.D. [address] [place] [phone] 10/17/2024 1:00 PM CDT Office Visit Department of Ophthalmology in [place], [place] [address] [place] [address] Tomás Mcbride M.D. [address] [place] [address] 10/23/2024 8:45 AM CDT Lab Department of Oncology in [place], [place] 200 [place] [address] Kerrie Vela M.B., BDuran, M.DForeign [address] [place] [phone] 10/23/2024 11:00 AM CDT Office Visit Department of Oncology in [place], [place] [address] [place] [phone] Kerrie Vela M.B., BDuran, M.DForeign [address] [place] [phone] 10/23/2024 11:30 AM CDT Appointment Department of Radiology in [place], [place] [address] [place] [phone] Franny Dutta M.D. [address] [place] [phone] 10/24/2024 7:30 AM CDT Infusion Department of Oncology in [place], [place] [address] [place] [phone] Kerrie Vela M.B., B., M.DForeign [address] [place] [phone] 10/24/2024 11:00 AM CDT Appointment Department of Radiation Oncology in [place], [place] [address] [place] [phone] Franny Dutta M.D. [address] [place] [phone] 10/25/2024 11:00 AM CDT Office Visit Department of Oncology in [place], [place] [address] [place] [phone] Kerrie Vela M.B., BDuran, MPhuc [address] [place] [phone] 11/06/2024 7:00 AM CDT Lab Department of Oncology in [place], [place] [address] [place] [phone] Kerrie Vela M.B., B., M.Cecelia [address] [place] [phone] 11/06/2024 9:00 AM CDT Office Visit Department of Oncology in [place], [place] [address] [place] [phone] Dawood Ruiz P.A.-C. [address] [place] [phone] 11/06/2024 10:00 AM CDT Infusion Department of Oncology in [place], [place] [address] [place] [phone] Kerrie Vela M.B., B.ChForeign, M.DForeign [address] [place] [phone] 11/20/2024 6:30 AM CDT Lab Department of Laboratory Medicine and Pathology, [facility], in [place], [place] [address] [place] [phone] Kerrie Vela M.B., B., M.DForeign [address] [place] [phone] 11/20/2024 8:20 AM CDT Office Visit Department of Oncology in [place], [place] [address] [place] [phone] Dawood Ruiz P.A.-C. [address] [place] [phone] 11/20/2024 9:00 AM CDT Infusion Department of Oncology in [address] [phone] Kerrie Vela M.B., B.Ch., M.D. [address] [place] [phone] 12/04/2024 8:30 AM CDT Lab Department of Laboratory Medicine and Pathology, [facility] in [address] [phone] Kerrie Vela M.B., B.Ch., M.D. [address] [place] [phone] 12/04/2024 10:20 AM CDT Office Visit Department of Oncology in [address] [phone] Kerrie Vela M.B., B.Ch., M.D. [address] [place] [phone] 12/04/2024 11:00 AM CDT Infusion Department of Oncology in [address] [phone] Kerrie Vela M.B., B.Ch., M.D. [address] [place] [phone] documented as of this encounter Visit Diagnoses Not on filedocumented in this encounter Additional Health Concerns Assessment Noted Time PHQ-9 Depression Total Score: 0 07/04/19 24 9:20 AM RIPRAP PLACER documented as of this encounter Care Teams Supervisor Microbiology Technologists Relationship Specialty Start Date End Date Jenny Vaca M.D. [address] [place] [phone] PCP - General 11/11/16 documented as of this encounter
--- OUTSIDE RECORDS SUMMARY | 2024-09-13 12:35 | XMS_ITS | Encounter Summary ---
Author Organization [facility] Address [address] [place] [address] Care Team Providers Care Actimize Architect Name Role Phone Jenny Vaca M.D. Primary Care Provider [phone] Reason for Referral * Outpatient (Routine) - Authorized Specialty Diagnoses / Procedures Referred By Cynthia t Referred To Contact Dermatology Diagnoses Cancer Lung Small Cell Personal History Pruritus Kerrie Vela M.B., BDuran, MPhuc [address] [place] [address] Phone: tel: fax: [facility] Referral ID Status Reason Start Date Expiration Date Visits Requested Visits Authorized [id number] Authorized Specialty Services Required 09/12/2024 03/14/2026 1 1 * Outpatient (Routine) Specialty Diagnoses / Procedures Referred By Cynthia t Referred To Contact Oncology Diagnoses 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) Cancer Lung Small Cell Personal History Detention Current Drug Therapy, 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 Kerrie Vela M.B., BDuran, MPhuc [address] [place] [phone] Phone: tel: fax: [facility] Referral ID Status Reason Start Date Expiration Date Visits Re quested Visits Authorized * Outpatient (Routine) Specialty Diagnoses / Procedures Referred By Contac t Referred To Contact Oncology Diagnoses 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) Cancer Lung 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, 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 Kerrie Vela M.B., Trevor, Alin [address] [place] [phone] Phone: tel: fax: [facility] Referral ID Status Reason Start Date Expiration Date Visits Re quested Visits Authorized * Outpatient (Routine) Specialty Diagnoses / Procedures Referred By Contac t Referred To Contact Oncology Diagnoses 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) Cancer Lung Small Cell Personal History Detention Current Drug Therapy, 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 Kerrei Vela M.B., Trevor, Alin [address] [place] [phone] Phone: tel: fax: [facility] Referral ID Status Reason Start Date Expiration Date Visits Re quested Visits Authorized * Outpatient (Routine) Specialty Diagnoses / Procedures Referred By Contac t Referred To Contact Oncology Diagnoses 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) Cancer Lung Small Cell Personal History Detention Current Drug Therapy, 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 Kerrie Vela M.B., Trevor, Alin [address] [place] [phone] Phone: tel: fax: [facility] Referral ID Status Reason Start Date Expiration Date Visits Re quested Visits Authorized * Outpatient (Routine) Specialty Diagnoses / Procedures Referred By Contac t Referred To Contact Oncology Diagnoses 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) Cancer Lung Small Cell Personal History Detention Current Drug Therapy, 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 Kerrie Vela M.B., Trevor, Alin [address] [place] [phone] Phone: tel: fax: [facility] Referral ID Status Reason Start Date Expiration Date Visits Re quested Visits Authorized * Outpatient (Routine) Specialty Diagnoses / Procedures Referred By Contac t Referred To Contact Oncology Diagnoses 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) Cancer Lung 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, 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 Kerrie Vela M.B., Trevor, Alin [address] [place] [phone] Phone: tel: fax: [facility] Referral ID Status Reason Start Date Expiration Date Visits Re quested Visits Authorized * Outpatient (Routine) Specialty Diagnoses / Procedures Referred By Contac t Referred To Contact Oncology Diagnoses 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) Cancer Lung Small Cell Personal History Detention Current Drug Therapy, 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 Kerrie Vela M.B., Trevor, Alin [address] [place] [phone] Phone: tel: fax: [facility] Referral ID Status Reason Start Date Expiration Date Visits Re quested Visits Authorized * Outpatient (Routine) Specialty Diagnoses / Procedures Referred By Contac t Referred To Contact Oncology Diagnoses 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); Secondary Malignant Neoplasm Brain (HCC); Secondary Malignant Neoplasm Lymph Node (HCC); Cancer Lung Small Cell Personal History; 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 More than 4 times per year 09/27/2022 Do you belong to any clubs o r organizations such as pentecostal groups, unions, fraternal or athletic groups, or [...] Answer Date Recorded PHQ-2 Score 0 06/18/2024 [facility] - Occupational Stress Questionnaire Answer Date [...] living situation today? I have a [facility] place to live 07/08/2023 Comments No Sex and Gender Information Value Date Recorded Sex Assigned at Not on file Legal Sex Female 8:27 AM [employer] Gender Identity Female 04/06/2017 8:58 AM [employer] Sexual Orientation Straight 04/06/2017 8: 58 AM [employer] documented as of this encounter Last Filed Vital Signs Vital Sign Reading Time Taken Comments Blood Pressure 145/75 09/12/2024 2:38 PM CDT Pulse 81 09/12/2024 2:38 PM CDT Temperature 36.2 C (97.2 F) 09/12/2024 2:38 PM CDT Respiratory Rate 17 09/12/2024 2:38 PM CDT Oxygen Saturation 98% 09/12/2024 2:38 PM CDT Inhaled Oxygen Concentration - - Weight 57.7 kg (127 lb 3.3 oz) 09/12/2024 2:38 P M CDT Height - - Body Mass Index 21.19 06/22/2024 10:59 AM [employer] documented in this encounter Consult Notes * Kerrie Vela M.B., Alin Murray - 09/12/2024 2:40 PM CDT SUBJECTIVE CHIEF COMPLAINT/PURPOSE OF VISIT [ESCLC] HISTORY OF PRESENT ILLNESS Mrs. Goyal is a 79 y.o. 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 She was ultimately dismissed to home. CT chest was ordered by herprimary care provider demonstrating right hilar and subcarinal adenopathy, along with known right lo wer lung nodule and a second new nodule. October 28, 2017, staging PET-CT demonstrated intense FDG avidity in the subcarinal mass measuring approximately 4.7 cm and hypermetabolic right hilar mass. The right lower lung nodules were not FDG avid. November 01, 2017, MRI head negative for metastatic disease though demonstrated chronic infarcts. 10/31/2017 Biopsy/Pathology Bronchoscopy with sampling of mass in the subcarinal space. Cytology demonstrated small cell carcinoma. 0% of tumor cells positive for PD-L1. 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) Staging form: Lung, AJCC V7 - Clinical stage from 10/31/2017: Stage Unknown (TX, N2, M0) Specimen type: Fine Needle Aspirate Biopsy of metastatic site performed: Yes Source of metastatic specimen: Mediastinal Lymph Nodes 11/07/2017 - 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 Treatment Plan Name: CARBOplatin AUC 6 / Etoposide ( Lung / Melanoma ) Line of Treatment: First Line Treatment Start Date: 11/07/2017 Planned Last Day of Treatment: 01/11/2018 (Planned) 11/28/2017 - 12/20/2017 Radiation Therapy Thoracic radiation therapy concurrent with cycle 2 chemotherapy to the mediastinum to a dose of 4500 cGy in 30 fractions (twice a day treatments). 01/25/2023 Critical Imaging FDG PET/CT IMPRESSION: 1. Progression of groundglass attenuation and consolidation throughout the anterior right upper lobe, right hilar soft tissue and increased size of a right upper lobe pulmonary nodule all of which demonstrate marked FDG activity. Findings are overall most concerning for progression of malignancy, however an infectious or inflammatory process cannot be completely excluded. The findings would likely be amenable to transbronchial tissue sampling as clinically indicated. 2. Unchanged non-FDG avid right lower lobe pulmonary nodule. 3. Mild left greater trochanteric bursitis. 4. New small right pleural effusion. 02/03/2023 Biopsy/Pathology A. Lung, Right upper lobe, EBUS fine needle aspiration (smears/cell block): Positive for malignancy. Combined small cell carcinoma (see comment). B. Lung, Right upper lobe, Biopsy Touch Prep (touch prep/tissue): Positive for malignancy. Combinedsmall cell carcinoma (see comment). 02/21/2023 - 11/23/2023 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 Atezolizumab / CARBOplatin / Etoposide Start Date: 02/21/2023 03/28/2023 - 04/01/2023 Radiation Therapy SBRT to a right lateral upper lung nodule to a dose of 5000 cGy in 5 fractions. 04/04/2023 - 05/16/2023 Radiation Therapy IMPT to a right lateral upper lung nodule; 5000 cGy in 30 fractions. 06/06/[address] chest IMPRESSION: 1. Redemonstration of right perihilar mass and right upper lobe lung mass peripherally is not changed from previous study compatible with known neoplasm. 2. New areas of airspace disease in the right upper lobe inferior to the pelvic mass which has worsened from the previous examination. This could be infectious or neoplastic. 3. Development of tree-in-bud infiltrates in the left upper lobe near the lingula. 4. Redemonstration of nodule in the right base unchanged. 5. Patches of parenchymal scarring which are felt to be similar to previous study. 6. Multiple tiny nodules elsewhere which are felt to be unchanged. 09/13/2023 Critical Imaging PET-CT IMPRESSION: 1. Disease response as evidenced by decreased right upper lobe consolidation, groundglass attenuation and decreased in size/near complete resolution of a right upper lobe pulmonary nodule with significantly decreased FDG avidity. 2. Stable non-FDG avid right lower lobe pulmonary nodule. 10/11/2023 Critical Imaging MR brain negative. 12/20/2023 Critical Imaging PET-CT IMPRESSION: 1. Stable consolidative and groundglass opacities in the right upper lobe with mild FDG uptake favored to represent evolving treatment changes. 2. Multiple new FDG avid nodules in the right lung are suspicious for metastatic disease as detailed. 3. Indeterminate subcentimeter FDG avid subcarinal lymph node. 4. Interval increase in size of the now moderate right pleural effusion which demonstrates stable low level FDG uptake. 5. Diffuse FDG uptake throughout the ascending colon, could represent an infectious or inflammatorycolitis. 12/21/2023 - 08/02/2024 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 Lurbinectedin Start Date: 12/21/2023 12/22/2023 Critical Imaging MR brain negative for intracranial mets. 02/28/2024 Critical Imaging PET-CT IMPRESSION: 1. Interval resolution of previously noted multifocal mild hypermetabolic nodules in the right lungnoted on PET/CT from 12/20/2023. 2. Stable right upper lobe mixed groundglass-consolidative air space opacity with associated mild FDG uptake favored to represent posttreatment changes. 3. Stable 17 mm right lower lung solid nodule with minimal tracer uptake below physiologic blood pool activity. 4. Stable to mild interval decreased tracer uptake in the indeterminate small subcarinal lymphadenopathy. 5. Stable small-moderate right-sided pleural effusion. 6. Interval resolution of previously noted hypermetabolic uptake in the ascending colon. 05/14/2024 Critical Imaging MR brain IMPRESSION: New 10 mm focus of enhancement along the medial left olfactory gyrus, suspicious for an intracranial metastasis. 05/17/2024 Critical Imaging PET/CT IMPRESSION: 1. Stable disease detailed above and summarized below. 2. Stable right fourth rib and chest wall metastasis with mild FDG uptake. 3. Stable right middle lobe post treatment changes. 4. Stable groundglass attenuation in the periphery of the right lower lung. 5. Stable non-FDG avid 1.7 cm right lower lobe pulmonary nodule. 6. Subcentimeter subcarinal lymph node demonstrates decreased FDG uptake. 7. Please see recent brain MRI for intracranial findings. 05/22/[address] Diallo who recommended referral to Radiation Oncology in [place]. Plan to continue lurbinectedin every 3 weeks. May need to hold for around 2 weeks after radiation, pending radiation consultation. Repeat scans towards end of 07/2023, brain MRI 3 months after completion of radiation. 06/14/2024 - 06/20/2024 Radiation Therapy Radiation Therapy Treatment Details (06/14/2024 - 06/20/2024) Site: Left Brain Fractions: 5 Technique: SRT Dose: 3000 cGy Goal: Curative Planned Treatment Start Date: 06/14/2024 07/30/2024 Critical Imaging MR Brain IMPRESSION: 1. Near complete resolution of the treated enhancing lesion in the left gyrus rectus. 2. New enhancing lesion in the superior left cerebellar hemisphere with associated diffusion restriction. Differential considerations include a new metastasis, less likely subacute infarct. Consider follow-up brain MRI in 4-6 weeks to evaluate for interval change/resolution of the enhancement. 08/28/2024 Critical Imaging PET/CT Impression: 1. Since 05/17/2024, increased size, number, and FDG avidity of multiple satellite nodules about the perihilar right lung and a new solid FDG avid nodule in the left upper lobe. 2. Stable right fourth rib and chest wall metastasis. 3. Redemonstrated post treatment changes in the right middle lobe. 4. Stable nodularity with low level FDG uptake in the periphery of the right upper lobe. 09/03/2024 Critical Imaging MRI Brain Impression: 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 Study performed for treatment planning. 09/07/2024 - 09/07/2024 Radiation Therapy Radiation Therapy Treatment Details (09/07/2024 - 09/07/2024) Site: Left Brain Technique: SRT Fractions: 1 Goal: Curative Dose: 2000 cGy Planned Treatment Start Date: 09/07/2024 09/18/2024 - 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 Tarlatamab-dlle Start Date: 09/18/2024 (Planned) INTERVAL HISTORY: Mrs. Goyal is a 79-year-old female with lung cancer who presents with severe itching and pain. She has been experiencing a severe, persistent itch for approximately four weeks, described as 'terrible' and affecting her ability to sleep. The itch is primarily located on her back, front, bottom of her feet, and buttocks, with no associated rash. She uses metal back scratchers and Benadryl cream for relief, but these measures have been insufficient. She recalls a similar episode of itching seven years ago, which resolved after starting chemotherapy. Currently, she is taking Claritin, Zyrtec, and Benadryl, but these have not alleviated her symptoms. Gabapentin has not been used yet. She has been undergoing chemotherapy with lurbinectedin for her lung cancer and has received elevencycles. She reports no bone pain but mentions being 'retired all the time' and unable to perform activities like cooking without frequent breaks due to weakness. She has a history of headaches, which she associates with radiation treatment, and reports a recentfall resulting in a minor hip injury. She continues to smoke cigarettes and occasionally consumes alcohol. Her current medications include Claritin, Zyrtec, Benadryl, and she has previously used guaifenesinwith codeine for bronchitis, though she has not taken the cough syrup recently. Current Therapy: Tarlatamab-dlle Current Disease Status: Progressing Intent of Therapy: Control Intent to Change Therapy: Yes-changing regimen due to progression REVIEW OF SYSTEMS Pertinent items are noted in HPI; all other review of systems were negative. CURRENT MEDICATIONS Reviewed and updated in the EMR. ALLERGIES/CONTRAINDICATIONS Reviewed and updated in the EMR. PAST MEDICAL HISTORY Medical History[1] SURGICAL HISTORY Surgical History[2] SOCIAL HISTORY Social History Socioeconomic History Marital status: Spouse name: Not on file Number of children: 2 Years of education: Not on file Highest education level: Not on file Occupational History Not on file Tobacco Use Smoking status: Every Day Current packs/day: 0.50 Average packs/day: 0.5 packs/day for 60.0 years (30.0 ttl pk-yrs) Types: Cigarettes Passive exposure: Current Smokeless tobacco: Never Vaping Use Vaping status: never used Substance and Sexual Activity Alcohol use: Yes Alcohol/week: 1.0 standard drink of alcohol Types: 1 Cans of beer per week Comment: 1 beer per night Drug use: No Sexual activity: Defer Other Topics Concern Not on file Social History Narrative Caffeine: 1 cup 20 oz Pepsi Max daily. 2 children, 6 grandchildren, and 1 great grandchild. Social Drivers of Health Food Insecurity: No Food Insecurity (07/08/2023) Hunger Vital Sign Worried About Running Out of Food in the Last Year: Never true Ran Out of Food in the Last Year: Never true Transportation Needs: No Transportation Needs (07/08/2023) PRAPARE - Transportation Lack of Transportation (Medical): No Lack of Transportation (Non-Medical): No Physical Activity: Insufficiently Active (07/08/2023) Exercise Vital Sign Days of Exercise per Week: 7 days Minutes of Exercise per Session: 10 min Intimate Partner Violence: Not At Risk (07/08/2023) Humiliation, Afraid, Rape, and Kick questionnaire Fear of Current or Ex-Partner: No Emotionally Abused: No Physically Abused: No Sexually Abused: No Housing Stability: Low Risk (07/08/2023) Housing Stability Housing: Living Situation: I have a steady place to live FAMILY HISTORY Family History[3] VITAL SIGNS Vitals: 09/12/24 1438 BP: 145/75 BP Location: Right arm Patient Position: Sitting Cuff Size: Small Pulse: 81 Resp: 17 Temp: 36.2 ??C TempSrc: Temporal SpO2: 98% Weight: 57.7 kg No data recorded REVIEW OF SYSTEMS Constitutional - General: Alert and oriented x 3. No acute distress. Well-nourished. - Eyes: EOMI. No visual changes. - HENT: No palpable mass or lymphadenopathy. - Lungs: Denies shortness of breath, cough. No accessory muscle use. - Cardiovascular: Denies chest pain or palpitation. - Abdomen: Denies changes in bowel habits, no abdominal pain. - Extremities: No edema. Non-tender. - Skin: No rashes or lesions. - Neurologic: No focal neurological deficits. - Psychiatric: Cooperative. Appropriate mood and affect. OBJECTIVE PHYSICAL EXAMINATION General: 79 y.o. female, in no acute distress. Ambulates on and off the exam table without difficulty. Skin: No rashes or lesions. Head/Neck: Normal exam of head/Neck Eyes: EOMI, ENT: Moist oral mucosa Heart: Regular rate and rhythm. Lungs: Clear to auscultation bilaterally. Neuro: Alert and oriented. No focal neurologic deficits. ECOG Performance Status: 1 Abdomen: Positive bowel sounds, soft, non-tender, non-distended, no ascites noted, no organomegaly Musculoskeletal/Extremities: Normal strength, normal to inspection Spine: No spinal or CVA tenderness Mental Status: Answering all questions appropriately, examined & normal Lymph: No cervical, supraclavicular, axillary or inguinal lymphadenopathy palpated DIAGNOSTICS I reviewed the imaging studies and agree with the interpretation as recorded. I reviewed the pertinent laboratory and diagnostic data. Assessment ASSESSMENT/PLAN Mrs. Goyal is 79 with a history of COPD, diabetes on insulin, atrial fibrillation on rivaroxaban,stage 3 chronic kidney disease, with initial diagnosis of limited stage small-cell lung cancer in 2018, treated with concurrent chemoradiation, completed in December 2017. 02/03/2023 recurrence of the right upper lobe. Treated with carbo/etoposide/atezolizumab and received SBRT to the right upper lung nodule, completed concurrent chemotherapy with proton radiation to rest of lung/mediastinum in 04/2023, course complicated by grade 3 neutropenia, anemia and fatigue. Restaging scans in November 2023 showed progressive disease, switched to lurbinectedin. 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 09/03/2024 brain MRI an indeterminate left cerebellar lesion. 09/07/2024 SRS to the left superior cerebellar metastases. Her most recent PET-CT is suggestive of progression of disease involving both lungs. PET scan shows active disease in lungs, brain MRI confirms cerebral involvement. Tarlatamab proposed with 40-45% response rate and LOADER SEMICONDUCTOR DIES efficacy of 35-40%. Despite comorbidities, she is a candidate, requiring close monitoring. - Initiate Tarlatamab with low-dose testing, escalate to full dose if tolerated. - Monitor for side effects, including flu-like symptoms and atrial fibrillation. - Advise staying within a 30-minute radius of the hospital for 48 hours post-infusion. - Arrange subsequent infusions closer to home if tolerated. - Provided information on Tarlatamab and potential effects. Pruritus Severe itching likely due to immune stimulation. Antihistamines ineffective, not allergy-mediated. I suspect immune mediated from underlying cancer. - Start Gabapentin at a low dose 300mg QHS, increase gradually if tolerated. - Refer to dermatology for further evaluation and management. Fatigue and Weakness Persistent fatigue and weakness likely exacerbated by cancer treatment and pruritus-related sleep disturbances. - Address pruritus to improve sleep quality and reduce fatigue. - Monitor energy levels and adjust cancer treatment as needed. Goals of Care She is considering Tarlatamab, weighing benefits against side effects. Aims to maintain quality of life, focusing on alleviating severe itching. Follow-up - Coordinate with healthcare team for ongoing monitoring and support. PATIENT EDUCATION: Ready to learn, no apparent learning barriers were identified; learning preferences include listening. Explained diagnosis and treatment plan; patient expressed understanding of the content. [1] Past Medical History: Diagnosis Date Abuse Tobacco Smoking 05/11/2017 Anemia Of Chronic Renal Disease 04/09/2010 Anemia in Chronic Kidney Disease Arrhythmia Atrial Fibrillation Paroxysmal (HCC) 02/14/2019 Bronchiectasis (HCC) 09/24/2016 Cancer Colon Family History Cataract Chronic Kidney Disease Chronic Kidney Disease Stage 3 Glomerular Filtration Rate 30 To 59 08/12/2005 Chronic Obstructive Pulmonary Disease (HCC) 09/24/2016 Cystoid Macular Edema Following Cataract Surgery Right Eye 08/30/2007 Degeneration Macular Diabetes Mellitus NOS Diabetes Mellitus Type 2 (HCC) Diabetes Mellitus Type 2 With Diabetic Nephropathy (HCC) 08/18/2005 Diabetes Mellitus Type 2 With Diabetic Neuropathy (HCC) 09/08/2015 DM2 Neuropathy Diarrhea 03/31/2018 Dry Eye Syndrome Bilateral Emphysema (HCC) Extraction Cataract Without Intraocular Lens Status Post 10/26/2007 Fracture Radius Nondisplaced Styloid Process Closed Subsequent With Routine Healing Left 09/12/2022 - recent fall and fracture of the left radial styloid on 09/09 - she was evaluated for this on 09/09,splinted, and scheduled for orthopedics for 09/15 - returned to clinic yesterday 09/11 due to worsening swelling and increased tightness and pain at the wrist - splint was removed 09/11 and demonstrated significant bruising, swelling, and demarcation from cesar bandage - splint was trimmed down and r Gammopathy Monoclonal 05/11/2017 Gastroesophageal Reflux Disease Gastroparesis 07/07/2010 Glaucoma POAG Bilaterally 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 09/26/2015 Hemorrhage Vitreous 11/24/2007 History Of Falling 08/14/2018 Hypercholesterolemia Familial 05/11/2017 Hyperkalemia 11/21/2020 Hyperlipidemia Hypertension And Chronic Kidney Disease Stage 3 03/29/2016 Hypertension (HTN) Essential Benign Hypertension NOS Imbalance Non Orthopedic 11/21/2018 Intraocular Lens Implant Status Post 10/16/2013 Laser Assisted In Situ Keratomileusis Status Post 06/14 07/15 12/13 2 SLT Rt eye and 1 Lt eye 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) 10/07/2016 Osteoporosis Senile Without Pathological Fracture 10/20/2015 Pain Low Back Chronic 11/02/2016 Peptic Ulcer Disease Personal History Polyp Colon Primary Open-Angle Glaucoma Unspecified Stage Right 10/02/2013 Radiation Therapy Personal History 04/05/2018 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 Stroke Cerebrovascular Accident Personal History 05/11/2017 Transient Ischemic Attack Ulcer Peptic 05/19/2017 [2] Past Surgical History: Procedure Laterality Date BRONCHOSCOPY FLEXIBLE N/A 02/03/2023 Procedure: BRONCHOSCOPY FLEXIBLE; Surgeon: Luis Hollis M.D.; Location: [facility] OR CAPSULOTOMY Bilateral CATARACT EXTRACTION Bilateral COLONOSCOPY N/A 09/27/2019 Procedure: COLONOSCOPY; Surgeon: Dorota Jenkins M.D., Ph.D.; Location: [facility] GI LAB ESOPHAGOGASTRODUODENOSCOPY N/A 09/27/2019 Procedure: ESOPHAGOGASTRODUODENOSCOPY; Surgeon: Dorota Jenkins M.D., Ph.D.; Location: [facility] EYE SURGERY N/A 04/01/2010 >Anterior chamber tap, left eye. EYE SURGERY N/A 07/14/2015 >Selective laser trabeculoplasty, left eye. EYE SURGERY N/A 06/16/2015 >Selective laser trabeculoplasty, right eye. FRACTURE SURGERY Left plates and screws - lower leg INJECTION N/A 04/01/2008 >Intravitreal preservative free Triesence injection, left eye. INJECTION N/A 12/06/2007 >Intravitreal Avastin injection (injection [id number]; Avastin [id number]), right eye. INJECTION N/A 03/16/2007 >Intravitreal preservative free Kenalog injection, left eye. INJECTION N/A 03/30/2007 >Intravitreal preservative free Kenalog injection, right eye. INJECTION N/A 07/25/2008 >Intravitreal preservative free Triesence injection ([id number]), left eye. INJECTION N/A 11/27/2008 >Intravitreal preservative free Triesence injection ([id number]), left eye. INJECTION N/A 07/13/2007 >Intravitreal preservative free Kenalog injection, left eye. INJECTION N/A 06/11/2009 >Intravitreal Avastin injection (injection [id number]; Avastin [id number]), left eye. LAPAROSCOPIC CHOLECYSTECTOMY WITH CHOLANGIOGRAPHY N/A 01/29/2005 Laparoscopy, surgical; cholecystectomy with cholangiography.. PANRETINAL PHOTOCOAGULATION N/A 03/20/2008 >Panretinal photocoagulation, right eye. PANRETINAL PHOTOCOAGULATION N/A 04/16/2009 >Panretinal photocoagulation, left eye. RETINA INJECTIONS Bilateral RETINAL LASER PROCEDURE ROBOTIC-ASSISTED BRONCHOSCOPY N/A 02/03/2023 Procedure: ROBOTIC-ASSISTED BRONCHOSCOPY; Surgeon: Luis Hollis M.D.; Location: [facility] OR TOTAL ABDOMINAL HYSTERECTOMY WITH BILATERAL SALPINGO-OOPHORECTOMY N/A 03/13/1977 Total abdominal hysterectomy (corpus and cervix), with or without removal of tube(s), with or without removal of ovary(s);.. VITRECTOMY Bilateral VITRECTOMY N/A 2009 >1. A 23-gauge pars plana vitrectomy. 2. Internal limiting membrane peel. VITRECTOMY N/A 05/09/2008 >1. Pars plana vitrectomy. 2. Membrane peel. [3] Family History Problem Relation Name Age of Onset Gastric bypass Daughter Heart failure Grandfather Maternal Stroke Grandmother Maternal Alcohol abuse Father Glaucoma Father Hodgkin disease Mother Glaucoma Mother Colon cancer Brother Hypertension Brother Hypertension Sister Phlebitis Sister Lower extremity documented in this encounter Plan of Treatment Upcoming Encounters Date Type Department Care Team (Late st Contact Info) Description 09/14/2024 11:00 AM CDT Admin Visit Department of Oncology in [place], [place] [address] [place] [phone] 09/17/2024 8:00 AM CDT Lab Department of Infusion Therapy in [place], [place] [address] [phone] Jenny Vaca M.D. [address] [phone] 09/17/2024 1:30 PM CDT Office Visit Department of Internal Medicine in [place], [place] [address] [phone] Elissa Luo P.A.-Hesham., M.S. [address] [phone] 09/18/2024 8:00 AM CDT Clinical Support Department of Oncology in [address] [phone] Blossom Hernandez M.[place]., L.I.C.S.W. [address] [place] [phone] 09/20/2024 10:00 AM CDT Telemedicine Department of Oncology in [place], [place] [address] [place] [phone] Kerrie Vela M.B., B.ChForeign, M.D. [address] [place] [phone] 09/24/2024 8:30 AM CDT Lab Department of Oncology in [address] [phone] Kerrie Vela M.B., B.Ch., M.D. [address] [place] [phone] 09/24/2024 9:40 AM CDT Office Visit Department of Oncology in [address] [phone] Kerrie Vela M.B., B.Ch., M.D. [address] [place] [phone] 09/24/2024 10:20 AM CDT Education Department of Oncology in [address] [phone] Kerrie Vela M.B., B.Ch., M.D. [address] [place] [phone] 09/24/2024 11:30 AM CDT Appointment [facility], [facility] [address] [place] [phone] Kerrie Vela M.B., BDuran, M.DForeign [address] [place] [phone] 09/25/2024 8:30 AM CDT Appointment [facility], [facility] [address] [place] [phone] Kerrie Vela M.B., Trevor, M.DForeign [address] [place] [phone] 09/26/2024 8:30 AM CDT Appointment [facility], [facility] [address] [place] [phone] Kerrie Vela M.B., BDuran, M.DForeign [address] [place] [phone] 09/28/2024 11:45 AM CDT Lab Department of Oncology in [place], [place] [address] [place] [phone] Kerrie Vela M.B., B.ChForeign, M.D. [address] [place] [phone] 09/28/2024 1:40 PM CDT Office Visit Department of Oncology in [place], [place] [address] [place] [phone] Dawood Ruiz P.A.-C. [address] [place] [phone] 10/01/2024 8:00 AM CDT Appointment [facility], [facility] [address] [place] [phone] Kerrie Vela M.B., Trevor, MPhuc [address] [place] [phone] 10/02/2024 8:00 AM CDT Appointment [facility], [facility] [address] [place] [address] Kerrie Vela M.B., Trevor, MPhuc [address] [place] [phone] 10/03/2024 8:00 AM CDT Appointment [facility], [facility], [address] [phone] Kerrie Vela M.B., Trevor, MForeignDForeign [address] [place] [phone] 10/10/2024 6:30 AM CDT Lab Department of Oncology in [place], [place] [address] [place] [phone] Kerrie Vela M.B., B., M.DForeign [address] [place] [phone] 10/10/2024 8:20 AM CDT Office Visit Department of Oncology in [place], [place] [address] [place] [phone] Brittney Stuart M.D. [address] [place] [phone] 10/10/2024 12:30 PM CDT Infusion Department of Oncology in [place], [place] [address] [place] [phone] Kerrie Vela M.B., B.ChForeign, M.DForeign [address] [place] [phone] 10/12/2024 11:20 AM CDT Office Visit Department of Oncology in [place], [place] [address] [place] [phone] Kerrie Vela M.B., B.ChForeign, M.D. [address] [place] [phone] 10/17/2024 1:00 PM CDT Office Visit Department of Ophthalmology in [place], [place] [address] [place] [phone] Tomás Mcbride M.D. [address] [place] [phone] 10/23/2024 8:45 AM CDT Lab Department of Oncology in [address] [phone] Kerrie Vela M.B., B.ChForeign, M.DForeign [address] [place] [phone] 10/23/2024 11:00 AM CDT Office Visit Department of Oncology in [place], [place] [address] [place] [phone] Kerrie Vela M.B., B.ChForeign, M.DForeign [address] [place] [phone] 10/23/2024 11:30 AM CDT Appointment Department of Radiology in [place], [place] [address] [place] [phone] Franny Dutta M.D. [address] [place] [phone] 10/24/2024 7:30 AM CDT Infusion Department of Oncology in [place], [place] [address] [place] [phone] Kerrie Vela M.B., BDuran, MPhuc [address] [place] [phone] 10/24/2024 11:00 AM CDT Appointment Department of Radiation Oncology in [place], [place] [address] [place] [phone] Franny Dutta M.D. [address] [place] [phone] 10/25/2024 11:00 AM CDT Office Visit Department of Oncology in [place], [place] [address] [place] [phone] Kerrie Vela M.B., B.ChForeign, M.DForeign [address] [place] [phone] 11/06/2024 7:00 AM CDT Lab Department of Oncology in [place], [place] [address] [place] [phone] Kerrie Vela M.B., B.ChForeign, M.DForeign [address] [place] [phone] 11/06/2024 9:00 AM CDT Office Visit Department of Oncology in [place], [place] [address] [place] [phone] Dawood Ruiz P.A.-C. [address] [place] [phone] 11/06/2024 10:00 AM CDT Infusion Department of Oncology in [place], [place] [address] [place] [phone] Kerrie Vela M.B., BDuran, M.DForeign [address] [place] [phone] 11/20/2024 6:30 AM CDT Lab Department of Laboratory Medicine and Pathology, [facility] in [place], [place] [address] [place] [phone] Kerrie Vela M.B., BDuran, M.DForeign [address] [place] [phone] 11/20/2024 8:20 AM CDT Office Visit Department of Oncology in [place], [place] [address] [place] [phone] Dawood Ruiz P.A.-C. [address] [place] [phone] 11/20/2024 9:00 AM CDT Infusion Department of Oncology in [place], [place] [address] [place] [phone] Kerrie Vela M.B., B.Ch., M.DForeign [address] [place] [phone] 12/04/2024 8:30 AM CDT Lab Department of Laboratory Medicine and Pathology, [facility] in [place], [place] [address] [place] [phone] Kerrie Vela M.B., B., M.D. 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) Cancer Lung Small Cell Personal History Detention Current Drug Therapy, 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 Expected: 09/24/2024, Expires: 09/25/2027 Comprehensive Metabolic Panel Lab Routine 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) Cancer Lung Small Cell Personal History Detention Current Drug Therapy, 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 Expected: 09/24/2024, Expires: 09/24/2025 Magnesium Lab Routine 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) Cancer Lung 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, 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 Expected: 09/24/2024, Expires: 09/24/2025 CBC with Differential, Blood Lab Routine 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) Cancer Lung Small Cell Personal History Detention Current Drug Therapy, 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 Expected: 10/01/2024, Expires: 10/02/2027 Comprehensive Metabolic Panel Lab Routine 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) Cancer Lung Small Cell Personal History Detention Current Drug Therapy, 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 Expected: 10/01/2024, Expires: 10/01/2025 CBC with Differential, Blood Lab Routine 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) Cancer Lung 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, 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 Expected: 10/08/2024, Expires: 10/09/2027 Comprehensive Metabolic Panel Lab Routine 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) Cancer Lung Small Cell Personal History Detention Current Drug Therapy, 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 Expected: 10/08/2024, Expires: 10/08/2025 CBC with Differential, Blood Lab Routine 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) Cancer Lung Small Cell Personal History Detention Current Drug Therapy, 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 Expected: 10/22/2024, Expires: 10/23/2027 Comprehensive Metabolic Panel Lab Routine 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) Cancer Lung Small Cell Personal History Detention Current Drug Therapy, 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 Expected: 10/22/2024, Expires: 10/22/2025 CBC with Differential, Blood Lab Routine 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) Cancer Lung Small Cell Personal History Detention Current Drug Therapy, 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 Expected: 11/05/2024, Expires: 11/06/2027 Comprehensive Metabolic Panel Lab Routine 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) Cancer Lung Small Cell Personal History Detention Current Drug Therapy, 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 Expected: 11/05/2024, Expires: 11/05/2025 CBC with Differential, Blood Lab Routine 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) Cancer Lung Small Cell Personal History Detention Current Drug Therapy, 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 Expected: 12/03/2024, Expires: 12/04/2027 Comprehensive Metabolic Panel Lab Routine 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) Cancer Lung Small Cell Personal History Detention Current Drug Therapy, 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 Expected: 12/03/2024, Expires: 12/03/2025 CBC with Differential, Blood Lab Routine 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) Cancer Lung 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, 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 Expected: 11/19/2024, Expires: 11/20/2027 Comprehensive Metabolic Panel Lab Routine 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) Cancer Lung 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, 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 Expected: 11/19/2024, Expires: 11/19/2025 CBC with Differential, Blood Lab Routine 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) Cancer Lung Small Cell Personal History Detention Current Drug Therapy, 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 Expected: 12/31/2024, Expires: 01/01/2028 Comprehensive Metabolic Panel Lab Routine 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) Cancer Lung Small Cell Personal History Detention Current Drug Therapy, 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 Expected: 12/31/2024, Expires: 12/31/2025 CBC with Differential, Blood Lab Routine 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) Cancer Lung Small Cell Personal History Detention Current Drug Therapy, 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 Expected: 12/17/2024, Expires: 12/18/2027 Comprehensive Metabolic Panel Lab Routine 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) Cancer Lung Small Cell Personal History Detention Current Drug Therapy, 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 Expected: 12/17/2024, Expires: 12/17/2025 Scheduled Referrals Name Type Priority Associated Diagnoses Orde r Schedule Oncology - Chemo education visit (clinic) Outpatient Referral Routine 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) Cancer Lung 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, 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 Expected: 09/23/2024, Expires: 09/23/2025 Oncology office visit (clinic) Outpatient Referral Routine 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) Cancer Lung Small Cell Personal History Detention Current Drug Therapy, 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 Expected: 09/24/2024, Expires: 12/24/2025 Oncology office visit (clinic) Outpatient Referral Routine 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) Cancer Lung Small Cell Personal History Detention Current Drug Therapy, 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 Expected: 10/01/2024, Expires: 12/31/2025 Oncology office visit (clinic) Outpatient Referral Routine 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) Cancer Lung 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, 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 Expected: 10/08/2024, Expires: 01/07/2026 Oncology office visit (clinic) Outpatient Referral Routine 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) Cancer Lung 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, 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 Expected: 10/22/2024, Expires: 01/21/2026 Oncology office visit (clinic) Outpatient Referral Routine 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) Cancer Lung Small Cell Personal History Detention Current Drug Therapy, 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 Expected: 11/05/2024, Expires: 02/04/2026 Oncology office visit (clinic) Outpatient Referral Routine 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) Cancer Lung 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, 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 Expected: 12/03/2024, Expires: 03/04/2026 Oncology office visit (clinic) Outpatient Referral Routine 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) Cancer Lung 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, 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 Expected: 11/19/2024, Expires: 02/18/2026 Oncology office visit (clinic) Outpatient Referral Routine 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) Cancer Lung Small Cell Personal History Detention Current Drug Therapy, 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 Expected: 12/31/2024, Expires: 04/01/2026 Oncology office visit (clinic) Outpatient Referral Routine 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) Cancer Lung 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, 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 Expected: 12/17/2024, Expires: 03/18/2026 Dermatology - General consult (clinic) Outpatient Referral Routine Cancer Lung Small Cell Personal History Pruritus Expected: 09/12/2024, Expires: 12/12/2025 documented as of this encounter Visit Diagnoses Diagnosis Pruritus- Primary 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 [address] [place] [phone] PCP - General 11/11/16 documented as of this encounter
--- OUTSIDE RECORDS SUMMARY | 2024-09-13 12:35 | XMS_ITS | Encounter Summary ---
Author Organization [facility] Address [address] [place] [address] Care Team Providers Care Director China Name Role Phone Jenny Vaca M.D. Primary Care Provider Encounter Details Date Type Department Care Team (Late st Contact Info) Description 09/07/2024 9:29 AM CDT Hospital Encounter Department of Radiation Oncology in [place], [place] [address] [place] [phone] Franny Dutta M.D. [address] [place] [address] Social History Tobacco Use Types Packs/Day Years Used Date Smoking Tobacco: Every Day Cigarettes 0.5 60 Passive Smoke Exposure: Current Smokeless Tobacco: Never Alcohol Use Standard Drinks/Week Comments Yes 1 (1 standard drink = 0.6 oz pur e alcohol) 1 beer per night [facility] Utilities Answer Date Recorded In the past 12 months has e [employer], gas, oil, or water [employer] threatened to shut off services in your [...] How often do you attend chur or hoahaoism services? More than 4 times per year 09/27/2022 Do you belong to any clubs o r organizations such as religion groups, unions, fraternal or athletic groups, or [...] Answer Date Recorded PHQ-2 Score 0 06/18/2024 [facility] [place] of Occupat ional Health - Occupational Stress [...] your living situation today? 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 [address] [place] [phone] 09/17/2024 1:30 PM CDT Office Visit Department of Internal Medicine in [place], [place] [address] [place] [address] Elissa Luo P.A.-C., M.S. [address] [place] [phone] 09/18/2024 8:00 AM CDT Clinical Support Department of Oncology in [address] [address] Blossom Hernandez M.S.[place]., L.I.C.S.W. [address] [place] [phone] 09/20/2024 10:00 AM CDT Telemedicine Department of Oncology in [address] [address] Kerrie Vela M.B., B.Ch., M.D. [address] [place] [phone] 09/24/2024 8:30 AM CDT Lab Department of Oncology in [address] [address] Kerrie Vela M.B., B.Ch., M.D. [address] [place] [phone] 09/24/2024 9:40 AM CDT Office Visit Department of Oncology in [address] [phone] Kerrie Vela M.B., B.Ch., MPhuc [address] [place] [phone] 09/24/2024 10:20 AM CDT Education Department of Oncology in [place], [place] [address] [place] [phone] Kerrie Vela M.B., BDuran, M.Cecelia [address] [place] [phone] 09/24/2024 11:30 AM CDT Appointment [facility] [address] [place] [phone] Kerrie Vela M.B., Trevor, MPhuc [address] [place] [phone] 09/25/2024 8:30 AM CDT Appointment [facility] [address] [place] [phone] Kerrie Vela M.B., BDuran, MPhuc [address] [place] [phone] 09/26/2024 8:30 AM CDT Appointment [facility] [address] [place] [phone] Kerrie Vela M.B., BDuran, M.DForeign [address] [place] [phone] 09/28/2024 11:45 AM CDT Lab Department of Oncology in [place], [place] [address] [place] [phone] Kerrie Vela M.B., BDuran, M.DForeign [address] [place] [phone] 09/28/2024 1:40 PM CDT Office Visit Department of Oncology in [place], [place] [address] [place] [phone] Dawood Ruiz P.A.-C. [address] [place] [phone] 10/01/2024 8:00 AM CDT Appointment [facility] [address] [place] [phone] Kerrie Vela M.B., Trevor, M.DForeign [address] [place] [phone] 10/02/2024 8:00 AM CDT Appointment [facility] [address] [place] [phone] Kerrie Vela M.B., BDuran, M.DForeign [address] [place] [phone] 10/03/2024 8:00 AM CDT Appointment [facility] [address] [place] [phone] Kerrie Vela M.B., B.ChForeign, M.DForeign [address] [place] [phone] 10/10/2024 6:30 AM CDT Lab Department of Oncology in [place], [place] [address] [place] [phone] Kerrie Vela M.B.Trevor, M.DForeign [address] [place] [phone] 10/10/2024 8:20 AM CDT Office Visit Department of Oncology in [place], [place] [address] [place] [phone] Brittney Stuart M.D. [address] [place] [phone] 10/10/2024 12:30 PM CDT Infusion Department of Oncology in [place], [place] [address] [place] [phone] Kerrie Vela M.B., B., M.DForeign [address] [place] [phone] 10/12/2024 11:20 AM CDT Office Visit Department of Oncology in [place], [place] [address] [place] [phone] Kerrie Vela M.B., B.ChForeign, M.D. [address] [place] [phone] 10/17/2024 1:00 PM CDT Office Visit Department of Ophthalmology in [place], [place] [address] [place] [phone] Tomás Mcbride M.D. [address] [place] [phone] 10/23/2024 8:45 AM CDT Lab Department of Oncology in [place], [place] [address] [place] [phone] Kerrie Vela M.B., B.ChForeign, M.D. [address] [place] [phone] 10/23/2024 11:00 AM CDT Office Visit Department of Oncology in [place], [place] [address] [place] [phone] Kerrie Vela M.B., Trevor, MPhuc [address] [place] [phone] 10/23/2024 11:30 AM CDT Appointment Department of Radiology in [place], [place] [address] [place] [phone] Franny Dutta M.D. [address] [place] [phone] 10/24/2024 7:30 AM CDT Infusion Department of Oncology in [place], [place] [address] [place] [phone] Kerrie Vela M.B., BDuran, MForeignDForeign [address] [place] [phone] 10/24/2024 11:00 AM CDT Appointment Department of Radiation Oncology in [place], [place] [address] [place] [phone] Franny Dutta M.D. [address] [place] [phone] 10/25/2024 11:00 AM CDT Office Visit Department of Oncology in [place], [place] [address] [place] [phone] Kerrie Vela M.B., B., M.D. [address] [place] [phone] 11/06/2024 7:00 AM CDT Lab Department of Oncology in [place], [place] [address] [place] [phone] Kerrie Vela M.B., BForeignChForeign, M.DForeign [address] [place] [phone] 11/06/2024 9:00 AM CDT Office Visit Department of Oncology in [place], [place] [address] [place] [address] Dawood Ruiz, P.A.-CForeign [address] [place] [phone] 11/06/2024 10:00 AM CDT Infusion Department of Oncology in [place], [place] [address] [place] [phone] Kerrie Vela M.B., BDuran, M.DForeign [address] [place] [phone] 11/20/2024 6:30 AM CDT Lab Department of Laboratory Medicine and Pathology, [facility], in [place], [place] [address] [place] [phone] Kerrie Vela M.B., B.ChForeign, M.D. [address] [place] [phone] 11/20/2024 8:20 AM CDT Office Visit Department of Oncology in [place], [place] [address] [place] [phone] Dawood Ruiz, P.A.-CForeign [address] [place] [phone] 11/20/2024 9:00 AM CDT Infusion Department of Oncology in [place], [place] [address] [place] [address] Kerrie Vela M.B., B.ChForeign, M.DForeign [address] [place] [phone] 12/04/2024 8:30 AM CDT Lab Department of Laboratory Medicine and Pathology, [facility], in [place], [place] [address] [place] [phone] Kerrie Vela M.B., B.Ch., M.D. [address] [place] [phone] 12/04/2024 10:20 AM CDT Office Visit Department of Oncology in [place], [place] [address] [place] [phone] Kerrie Vela M.B., B.Ch., M.D. [address] [place] [phone] 12/04/2024 11:00 AM CDT Infusion Department of Oncology in [place], [place] [address] [place] [phone] Kerrie Vela M.B., B.Ch., M.D. [address] [place] [phone] documented as of this encounter Visit Diagnoses Not on filedocumented in this encounter Additional Health Concerns Assessment Noted Time PHQ-9 Depression Total Score: 0 07/04/19 24 9:20 AM AUTO BODY STRAIGHTENER documented as of this encounter Care Teams Director China Relationship Specialty Start Date End Date Jenny Vaca M.D. [address] [phone] PCP - General 11/11/16 documented as of this encounter
--- OUTSIDE RECORDS SUMMARY | 2024-09-13 12:35 | XMS_ITS | Encounter Summary ---
Author Organization [facility] Address [address] [place] [address] Care Team Providers Care Mail Handler Equipment Operator Name Role Phone Jenny Vaca M.D. 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 [address] [place] [address] Phone: tel: fax: Department of Oncology in [place], [place] [address] [phone] Phone: tel: fax: Referral ID Status Reason Start Date Expiration Date V isits Requested Visits Authorized [id number] Authorized 02/17/2023 02/16/2025 99 99 Encounter Details Date Type Department Care Team (Late st Contact Info) Description 09/05/2024 1:30 PM CDT Infusion Department of Infusion Therapy in [place], [place] [address] [phone] Marlo Diallo M.D. 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 More than 4 times per year 09/27/2022 Do you belong to any clubs o r organizations such as sabianism groups, unions, fraternal or athletic groups, or [...] Answer Date Recorded PHQ-2 Score 0 06/18/2024 [facility] - Occupational Stress Questionnaire Answer Date [...] your living situation today? 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 Gender Identity Female 04/06/2017 8:58 AM STEAMBOAT INSPECTOR Sexual Orientation Straight 04/06/2017 8: 58 AM STEAMBOAT INSPECTOR documented as of this encounter Last Filed Vital Signs Vital Sign Reading Time Taken Comments Blood Pressure 124/58 09/05/2024 2:59 PM CDT Pulse 83 09/05/2024 2:59 PM CDT Temperature 36.3 C (97.3 F) 09/05/2024 1:32 PM CDT Respiratory Rate 18 09/05/2024 1:32 PM CDT Oxygen Saturation - - Inhaled Oxygen Concentration - - Weight - - Height - - Body Mass Index - - documented in this encounter Plan of Treatment Upcoming Encounters Date Type Department Care Team (Late st Contact Info) Description 09/14/2024 11:00 AM CDT Admin Visit Department of Oncology in [place], [place] [address] [place] [address] 09/17/2024 8:00 AM CDT Lab Department of Infusion Therapy in [place], [place] [address] [place] [phone] Jenny Vaca M.D. [address] [address] 09/17/2024 1:30 PM CDT Office Visit Department of Internal Medicine in [place], [place] [address] [place] [phone] Elissa Luo P.A.-C., M.S. [address] [place] [address] 09/18/2024 8:00 AM CDT Clinical Support Department of Oncology in [place], [place] [address] [place] [phone] Blossom Hernandez M.S.W., L.I.C.S.W. [address] [place] [phone] 09/20/2024 10:00 AM CDT Telemedicine Department of Oncology in [place], [place] [address] [place] [phone] Kerrie Vela M.B., B.Ch., M.D. [address] [place] [phone] 09/24/2024 8:30 AM CDT Lab Department of Oncology in [place], [place] [address] [place] [phone] Kerrie Vela M.B., B.Ch., M.D. [address] [place] [phone] 09/24/2024 9:40 AM CDT Office Visit Department of Oncology in [address] [phone] Kerrie Vela M.B., B.Ch., M.D. [address] [place] [phone] 09/24/2024 10:20 AM CDT Education Department of Oncology in [place], [place] [address] [place] [phone] Kerrie Vela M.B., Trevor, M.DForeign [address] [place] [phone] 09/24/2024 11:30 AM CDT Appointment [facility], [facility], [facility] [address] [place] [phone] Kerrie Vela M.B., Trevor, M.DForeign [address] [place] [phone] 09/25/2024 8:30 AM CDT Appointment [facility], [facility], [facility] [address] [place] [phone] Kerrie Vela M.B., Trevor, M.DForeign [address] [place] [phone] 09/26/2024 8:30 AM CDT Appointment [facility], [facility], [facility] [address] [place] [phone] Kerrie Vela M.B., BForeignChForeign, M.DForeign [address] [place] [phone] 09/28/2024 11:45 AM CDT Lab Department of Oncology in [place], [place] [address] [place] [phone] Kerrie Vela M.B., BDuran, M.DForeign [address] [place] [phone] 09/28/2024 1:40 PM CDT Office Visit Department of Oncology in [place], [place] [address] [place] [phone] Dawood Ruiz P.A.-C. [address] [place] [phone] 10/01/2024 8:00 AM CDT Appointment [facility], [facility], [facility] [address] [place] [phone] Kerrie Vela M.B., B.ChForeign, M.DForeign [address] [place] [phone] 10/02/2024 8:00 AM CDT Appointment [facility], [facility], [facility] [address] [place] [phone] Kerrie Vela M.B., B.ChForeign, M.DForeign [address] [place] [phone] 10/03/2024 8:00 AM CDT Appointment [facility], [facility], [facility] [address] [place] [phone] Kerrie Vela M.B., B.Ch., M.DForeign [address] [place] [phone] 10/10/2024 6:30 AM CDT Lab Department of Oncology in [place], [place] [address] [place] [phone] Kerrie Vela M.B., B.Ch., M.DForeign [address] [place] [phone] 10/10/2024 8:20 AM CDT Office Visit Department of Oncology in [place], [place] [address] [place] [phone] Brittney Stuart M.D. [address] [place] [phone] 10/10/2024 12:30 PM CDT Infusion Department of Oncology in [place], [place] [address] [place] [phone] Kerrie Vela M.B., B., M.DForeign [address] [place] [phone] 10/12/2024 11:20 AM CDT Office Visit Department of Oncology in [place], [place] [address] [place] [phone] Kerrie Vela M.B., B.ChForeign, M.D. [address] [place] [phone] 10/17/2024 1:00 PM CDT Office Visit Department of Ophthalmology in [place], [place] [address] [place] [phone] Tomás Mcbride M.D. [address] [place] [phone] 10/23/2024 8:45 AM CDT Lab Department of Oncology in [place], [place] [address] [place] [phone] Kerrie Vela M.B., B.ChForeign, M.D. [address] [place] [phone] 10/23/2024 11:00 AM CDT Office Visit Department of Oncology in [place], [place] [address] [place] [phone] Kerrie Vela M.B., BDuran, MPhuc [address] [place] [phone] 10/23/2024 11:30 AM CDT Appointment Department of Radiology in [place], [place] [address] [place] [phone] Franny Dutta M.D. [address] [place] [phone] 10/24/2024 7:30 AM CDT Infusion Department of Oncology in [place], [place] [address] [place] [phone] Kerrie Vela M.B., BDuran, MPhuc [address] [place] [phone] 10/24/2024 11:00 AM CDT Appointment Department of Radiation Oncology in [place], [place] [address] [place] [phone] Franny Dutta M.D. [address] [place] [phone] 10/25/2024 11:00 AM CDT Office Visit Department of Oncology in [place], [place] [address] [place] [phone] Kerrie Vela M.B., B., M.DForeign [address] [place] [phone] 11/06/2024 7:00 AM CDT Lab Department of Oncology in [place], [place] [address] [place] [phone] Kerrie Vela M.B., Trevor, M.Cecelia [address] [place] [phone] 11/06/2024 9:00 AM CDT Office Visit Department of Oncology in [place], [place] [address] [place] [phone] Dawood Ruiz, P.A.-C. [address] [place] [phone] 11/06/2024 10:00 AM CDT Infusion Department of Oncology in [place], [place] [address] [place] [phone] Kerrie Vela M.B., BDuran, M.Cecelia [address] [place] [phone] 11/20/2024 6:30 AM CDT Lab Department of Laboratory Medicine and Pathology, [facility] in [place], [place] [address] [place] [phone] Kerrie Vela M.B., B., M.DForeing [address] [place] [phone] 11/20/2024 8:20 AM CDT Office Visit Department of Oncology in [place], [place] [address] [place] [phone] Dawood Ruiz, P.A.-CForeign [address] [place] [phone] 11/20/2024 9:00 AM CDT Infusion Department of Oncology in [place], [place] [address] [place] [phone] Kerrie Vela M.B., B., M.D. [address] [place] [phone] 12/04/2024 8:30 AM CDT Lab Department of Laboratory Medicine and Pathology, [facility], in [place], [place] [address] [place] [phone] Kerrie Vela M.B., BDuran, M.Cecelia [address] [place] [phone] 12/04/2024 10:20 AM CDT Office Visit Department of Oncology in [place], [place] [address] [place] [phone] Kerrie Vela M.B., BDuran, M.Cecelia [address] [place] [phone] 12/04/2024 11:00 AM CDT Infusion Department of Oncology in [place], [place] [address] [place] [phone] Kerrie Vela M.B., BDuran, M.DForeign [address] [place] [phone] Scheduled Referrals Name Type Priority Associated Diagnoses Orde r Schedule Hydration Infusion Therapy; Outpatient Referral Routine 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) Expected: 09/05/2024, Expires: 09/05/2025 documented as of this encounter Visit Diagnoses Diagnosis 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),Secondary Malignant Neoplasm Lymph Node (HCC) New Bag 09/05/2024 1:40 PM CDT 1,000 mL 1000 mL/hr sodium chloride 0.9 % injection 10 mL 10 mL, intra-catheter, As needed, line care, Starting on Tue09/05/24 at 1342, When IVAD Accessed and in Use: Flush prior to and following infusion, between multiple consecutive infusions, and prior to blood sampling.Indications:Cancer Lung Small Cell Personal History Given 09/05/2024 1:37 PM CDT 10 mL sodium chloride 0.9 % injection 20 mL 20 mL, intra-catheter, As needed, line care, Starting on Tue09/05/24 at 1342, When IVAD Accessed and in Use: Flush post blood transfusion or post blood sampling.Indications:Cancer Lung Small Cell Personal History Given 09/05/2024 2:53 PM CDT 20 mL documented in this encounter Additional Health Concerns Assessment Noted Time PHQ-9 Depression Total Score: 0 07/04/19 24 9:20 AM STEAMBOAT INSPECTOR documented as of this encounter Care Teams Mail Handler Equipment Operator Relationship Specialty Start Date End Date Jenny Vaca M.D. [address], [place] [phone] PCP - General 11/11/16 documented as of this encounter
--- OUTSIDE RECORDS SUMMARY | 2024-09-13 12:36 | XMS_ITS | Encounter Summary ---
Author Organization [facility] Address [address] [place] [id number] Care Team Providers Care Sagger Filler Name Role Phone Jenny Vaca M.D. Primary Care Provider [phone] Reason for Referral * MRI/CAT/PET Scan (Routine) - Closed Specialty Diagnoses / Procedures Referred By Cynthia eagle Referred To Contact Radiology Diagnoses Secondary Malignant Neoplasm Brain (HCC) Procedures MR Brain without and with IV Contrast Kay Thayer P.A.-C., M.S. [address] [place] [phone] Phone: tel: fax: [facility] Region Referral ID Status Reason Start Date Expiration Date Visits Re quested Visits Authorized [id number] Closed 07/31/2024 10/31/2025 1 1 Reason for Visit * MRI/CAT/PET Scan (Routine) - Closed Specialty Diagnoses / Procedures Referred By Contac t Referred To Contact Radiology Diagnoses Secondary Malignant Neoplasm Brain (HCC) Procedures MR Brain without and with IV Contrast Kay Thayer P.A.-C., M.S. [address] [place] [phone] Phone: tel: fax: [facility] Region Referral ID Status Reason Start Date Expiration Date Visits Re quested Visits Authorized [id number] Closed 07/31/2024 10/31/2025 1 1 Encounter Details Date Type Department Care Team (Latest Contact Info) Description 09/03/2024 10:59 AM CDT - 09/03/2024 12:09 PM CDT Hospital Encounter Department of Radiology in [place], [place] [address] [place] [address] Kay Thayer P.A.-C., M.S. [address] [place] [address] Secondary Malignant Neoplasm Brain (HCC) Discharge Disposition: Home or Self Care Social History Tobacco Use Types Packs/Day Years Used Date Smoking Tobacco: Every Day Cigarettes 0.5 60 Passive Smoke Exposure: Current Smokeless Tobacco: Never Alcohol Use Standard Drinks/Week Comments Yes 1 (1 standard drink = 0.6 oz pur e alcohol) 1 beer per night [facility] [employer] Answer Date Recorded In the past 12 months has e [employer], gas, oil, or water indico threatened to shut off services in your [...] How often do you attend chur or congregational services? More than 4 times per year 09/27/2022 Do you belong to any clubs o r organizations such as protestant groups, unions, fraternal or athletic groups, or [...] your living situation today? 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 30 tablet 3 4 09/13/19 25 documented as of this encounter Plan of Treatment Upcoming Encounters Date Type Department Care Team (Late st Contact Info) Description 09/14/2024 11:00 AM CDT Admin Visit Department of Oncology in [place], [place] [address] [place] [address] 09/17/2024 8:00 AM CDT Lab Department of Infusion Therapy in [place], [place] [address] [place] [phone] Jenny Vaca M.D. [address] [phone] 09/17/2024 1:30 PM CDT Office Visit Department of Internal Medicine in [place], [place] [address] [place] [phone] Elissa Luo P.A.-Hesham., M.S. [address] [place] [phone] 09/18/2024 8:00 AM CDT Clinical Support Department of Oncology in [place], [place] [address] [place] [phone] Blossom Hernandez M.SDeep., L.I.C.S.W. [address] [place] [phone] 09/20/2024 10:00 AM CDT Telemedicine Department of Oncology in [place], [place] [address] [place] [phone] Kerrie Vela M.B., B.Ch., M.D. [address] [place] [phone] 09/24/2024 8:30 AM CDT Lab Department of Oncology in [place], [place] [address] [place] [phone] Kerrie Vela M.B., B.Ch., M.D. [address] [place] [phone] 09/24/2024 9:40 AM CDT Office Visit Department of Oncology in [place], [place] [address] [place] [phone] Kerrie Vela M.B., B.Ch., M.D. [address] [place] [phone] 09/24/2024 10:20 AM CDT Education Department of Oncology in [place], [place] [address] [place] [phone] Kerrie Vela M.B., B.Ch., M.D. [address] [place] [phone] 09/24/2024 11:30 AM CDT Appointment [facility], [facility], [facility] [address] [place] [phone] Kerrie Vela M.B., BForeignChForeign, M.DForeign [address] [place] [phone] 09/25/2024 8:30 AM CDT Appointment [facility], [facility], [facility] [address] [place] [phone] Kerrie Vela M.B., B.ChForeing, M.D. [address] [place] [phone] 09/26/2024 8:30 AM CDT Appointment [facility], [facility], [facility] [address] [place] [phone] Kerrie Vela M.B., B.Ch., M.DForeign [address] [place] [phone] 09/28/2024 11:45 AM CDT Lab Department of Oncology in [place], [place] [address] [place] [phone] Kerrie Vela M.B., B.Ch., M.D. [address] [place] [phone] 09/28/2024 1:40 PM CDT Office Visit Department of Oncology in [place], [place] [address] [place] [phone] Dawood Ruiz P.A.-C. [address] [place] [phone] 10/01/2024 8:00 AM CDT Appointment [facility], [facility], [facility] [address] [place] [phone] Kerrie Vela M.B., Trevor, MPhuc [address] [place] [phone] 10/02/2024 8:00 AM CDT Appointment [facility], [facility], [facility] [address] [place] [address] Kerrie Vela M.B., BDuran, M.DForeign [address] [place] [phone] 10/03/2024 8:00 AM CDT Appointment [facility], [facility], [facility] [address] [place] [phone] Kerrie Vela M.B., BDuran, M.DForeign [address] [place] [phone] 10/10/2024 6:30 AM CDT Lab Department of Oncology in [place], [place] [address] [place] [phone] Kerrie Vela M.B., B., M.DForeign [address] [place] [phone] 10/10/2024 8:20 AM CDT Office Visit Department of Oncology in [place], [place] [address] [place] [phone] Brittney Stuart M.D. [address] [place] [phone] 10/10/2024 12:30 PM CDT Infusion Department of Oncology in [place], [place] [address] [place] [phone] Kerrie Vela M.B., BForeignChForeign, M.DForeign [address] [place] [phone] 10/12/2024 11:20 AM CDT Office Visit Department of Oncology in [place], [place] [address] [place] [phone] Kerrie Vela M.B., B.ChForeign, M.DForeign [address] [place] [phone] 10/17/2024 1:00 PM CDT Office Visit Department of Ophthalmology in [place], [place] [address] [place] [phone] Tomás Mcbride M.D. [address] [place] [phone] 10/23/2024 8:45 AM CDT Lab Department of Oncology in [place], [place] [address] [place] [phone] Kerrie Vela M.B., B.Ch., M.DForeign [address] [place] [phone] 10/23/2024 11:00 AM CDT Office Visit Department of Oncology in [place], [place] [address] [place] [phone] Kerrie Vela M.B., B.Ch., M.D. [address] [place] [phone] 10/23/2024 11:30 AM CDT Appointment Department of Radiology in [place], [place] [address] [place] [phone] Franny Dutta M.D. [address] [place] [phone] 10/24/2024 7:30 AM CDT Infusion Department of Oncology in [place], [place] [address] [place] [phone] Kerrie Vela M.B., B., MPhuc [address] [place] [phone] 10/24/2024 11:00 AM CDT Appointment Department of Radiation Oncology in [place], [place] [address] [place] [phone] Franny Dutta M.D. [address] [place] [phone] 10/25/2024 11:00 AM CDT Office Visit Department of Oncology in [place], [place] [address] [place] [phone] Kerrie Vela M.B., B.ChForeign, M.DForeign [address] [place] [phone] 11/06/2024 7:00 AM CDT Lab Department of Oncology in [place], [place] [address] [place] [phone] Kerrie Vela M.B., B.ChForeign, M.DForeign [address] [place] [phone] 11/06/2024 9:00 AM CDT Office Visit Department of Oncology in [place], [place] [address] [place] [phone] Dawood Ruiz P.A.-C. [address] [place] [phone] 11/06/2024 10:00 AM CDT Infusion Department of Oncology in [place], [place] [address] [place] [phone] Kerrie Vela M.B., BForeignChForeign, M.DForeign [address] [place] [phone] 11/20/2024 6:30 AM CDT Lab Department of Laboratory Medicine and Pathology, [facility] in [place], [place] [address] [place] [phone] Kerrie Vela M.B., B.ChForeign, M.DForeign [address] [place] [phone] 11/20/2024 8:20 AM CDT Office Visit Department of Oncology in [place], [place] [address] [place] [phone] Dawood Ruiz P.A.-C. [address] [place] [phone] 11/20/2024 9:00 AM CDT Infusion Department of Oncology in [place], [place] [address] [place] [address] Kerrie Vela M.B., B.Ch., M.DForeign [address] [place] [phone] 12/04/2024 8:30 AM CDT Lab Department of Laboratory Medicine and Pathology, [facility] [place], in [place], [place] [address] [place] [phone] Kerrie Vela M.B., B.Ch., M.D. [address] [place] [phone] 12/04/2024 10:20 AM CDT Office Visit Department of Oncology in [place], [place] [address] [place] [phone] Kerrie Vela M.B., Trevor, Alin [address] [place] [address] 12/04/2024 11:00 AM CDT Infusion Department of Oncology in [place], [place] [address] [place] [address] Kerrie Vela M.B., Trevor, Alin [address] [place] [phone] documented as of this encounter Procedures Procedure Name Priority Date/Time Associated Diagnosis Comments MR BRAIN WITHOUT AND WITH IV CONTRAST RAD - Routine (most inpatients and all outpatients) 09/03/2024 12:08 PM CDT Secondary Malignant Neoplasm Brain (HCC) documented in this encounter Results * MR Brain without and with IV Contrast (09/03/2024 12:08 PM CDT) Anatomical Region Laterality Modality Head, Brain, Neuroradiology [facility], Neuroradiology [facility], Neuroradiology [facility] N/A Magnetic Resonance Impressions 09/03/2024 12:26 PM CDT 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 Study performed for treatment planning. Narrative 09/03/2024 12:26 PM CDT EXAM: MR BRAIN WITHOUT AND WITH IV CONTRAST COMPARISON:Multiple prior studies, most recent 07/30/2024 FINDINGS: 11 x 7 mm metastasis left superior cerebellum. No other intracranial metastasis is identified. Stable ventricles. Negative for acute infarction. No abnormal susceptibility artifact. Major flow voids at the skull base are preserved. Intracranial atherosclerosis. Early confluent signal abnormality in the periventricular and deep cerebral white matter is a nonspecific finding, likely sequelae of chronic small vessel ischemia, moderate in extent. Procedure Note Maynor Peterson M.D. - 04/07/2025 EXAM: MR BRAIN WITHOUT AND WITH IV CONTRAST COMPARISON:Multiple prior studies, most recent 07/30/2024 FINDINGS: 11 x 7 mm metastasis left superior cerebellum. No other intracranial metastasis is identified. Stable ventricles. Negative for acute infarction. No abnormal susceptibility artifact. Major flow voids at the skull base are preserved. Intracranialatherosclerosis. Early confluent signal abnormality in the periventricular and deepcerebral white matter is a nonspecific finding, likely sequelae of chronicsmall vessel ischemia, moderate in extent. 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 Study performed fortreatment planning. Kay Thayer P.A.-C., M.S. IMG MRI PROCEDURES Fin al Result documented in this encounter Visit Diagnoses Diagnosis Secondary Malignant Neoplasm Brain (HCC) documented in this encounter Administered Medications Inactive Administered Medications - up to 3 most recent administrations Medication Order MAR Action Action Date Dose Rate Site gadobutrol injection 1-14 mL (Gadavist) 1-14 mL, intravenous, Once in imaging, contrast, Starting on Tue09/03/24 at 1114, For 1 dose, Dose per Radiant Medication Guidelines Intrathecal doses greater than 0.25 mL not recommended. 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 [address] [phone] PCP - General 11/11/16 documented as of this encounter
--- OUTSIDE RECORDS SUMMARY | 2024-09-13 12:36 | XMS_ITS | Clinical Summary ---
Author Organization [facility] Address [address] [place] [address] Care Team Providers Care [employer] Name Role Phone Jenny Vaca M.D. Primary Care Provider [phone] Source Comments Patient records contain information from all sites at [facility]. For routine questions regarding patient records, call [phone] during business hours, M-F 8:00 AM - 5:00 PM Central Time. Record requests for emergency care only can be directed to [phone] at any time.[facility] Allergies Active Allergy Reactions Criticality Noted Date Comments Gadolinium-Containing Contrast Media Rash Medium 07/01/2021 Patient received contrast twice in one day and had flushing on her chest 30 minutes after Tree And Shrub Pollen Itching 12/01/2017 Medications * This document contains information received from the source organization and may not represent a complete record from that organization. INSULIN PUMP CARTRIDGE SC Inject under the skin. Active aspirin [address] tablet Take 81 mg by mouth daily. Active lancets (ACCU-CHEK SOFTCLIX LANCETS) misc Use to test 4 times daily Dx: E11.40 Lifetime need 400 each 3 07/30/ 018 Active loperamide (IMODIUM A-D) 2 mg tablet Take 2 mg by mouth 4 (four) times a day as needed for diarrhea. Active blood sugar diagnostic (Contour Next Test Strips) strips USE 1 STRIP TO CHECK GLUCOSE FIVE TIMES DAILY 500 strip 3 021 Active polyvinyl alcohol/povidon e/PF (REFRESH CLASSIC, PF, OPHT) Administer 1 drop into both eyes 4 (four) times a day as needed (Dry eye). Active fluticasone propionate (FLONASE) 50 mcg/actuation nasal spray Administer 2 sprays into each nostril daily as needed for allergies. Active sodium chloride (NEBUSAL) 3 % nebulizer solution Inhale 4 mL by nebulization 2 (two) times a day as needed for cough. 750 mL 11 023 Active triamcinolone (KENALOG) 0.1 % cream 023 Active furosemide (LASIX) 20 mg tablet Take 1 tablet (20 mg total) by mouth daily as needed (fluid retention). 90 tablet 3 024 Active rivaroxaban (Xarelto) 20 mg tablet Take 1 tablet (20 mg total) by mouth daily with dinner. 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 90 tablet 3 024 2024 Active Additional Information Patient not taking.Reported on 09/05/2024 dicyclomine (BentyL) 10 mg capsule Take 1 capsule (10 mg total) by mouth 4 (four) times a day as needed (abdominal pain or cramps). 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 90 tablet 3 024 Active Additional Information Patient not taking.Reported on 09/05/2024 blood-glucose sensor (FreeStyle Canelo 3 Sensor) device 1 each every 14 (fourteen) days. 6 each 3 024 Active blood-glucose meter,continuou s (FreeStyle Canelo 3 [place]) 1 each (1 Device total) as directed. 1 each 024 Active estradioL (Estrace) 0.1 mg/g (0.01%) vaginal creamIndication s:Atrophy Vagina Due To Estrogen Deficiency Insert 1 g into the vagina 3 (three) times a week. 42.5 g 5 024 Active benzonatate (Tessalon Perles) 100 mg capsule Take 1 capsule by mouth three times daily as needed for cough 20 capsule 3 024 Active diphenhydrAMINE (BenadryL) 50 mg capsule Take 1 capsule (50 mg) 1 hour prior to exam. 1 capsule Active Additional Information Patient not taking.Reported on 09/05/2024 Vitamin D3 25 mcg (1,000 unit) capsule Take 1 capsule by mouth once daily 90 capsule 3 024 Active diphenoxylate-a tropine (LomotiL) 2.5-0.025 mg per tablet TAKE 1 TABLET BY MOUTH 4 TIMES DAILY NEEDED FOR DIARRHEA 30 tablet 024 Active budesonide (Entocort EC) 3 mg 24 hr capsule Take 2 capsules (6 mg total) by mouth daily with morning meal. 90 capsule 3 024 Active codeine-guaiFEN esin (Robitussin AC) 10-100 mg/5 mL liquid Take 5 mL by mouth every 8 (eight) hours as needed for cough. 237 mL 1 024 Active methocarbamoL (Robaxin) 500 mg tablet Take 1 tablet (500 mg total) by mouth 3 (three) times a day as needed for muscle spasms. 45 tablet 024 Active HYDROcodone-cesar taminophen ([place]) 5-325 mg per tabletIndicatio ns:Chronic Pain/Nonacute Pain Take 1 tablet by mouth every 6 (six) hours as needed for severe pain or score 7-10 of 10 Indication: Chronic Pain/Nonacute Pain. 30 tablet 025 Active albuterol 90 mcg/actuation inhaler Inhale 2 puffs every 4 (four) hours as needed for wheezing or shortness of breath. 54 g 3 01/20/2 025 Active insulin lispro (HumaLOG U-100 Insulin) 100 unit/mL vialIndications :Diabetes Mellitus Type 2 With Diabetic Neuropathy (HCC) Follow sliding scale up to 75 units in 24 hours subcutaneously via insulin pump (DM Type 2 E11.40 Lifetime need A1C 6.1 on 06/13/2024) 60 mL 3 Active tiotropium (Spiriva Respimat) 2.5 mcg/actuation inhaler Inhale 2 puffs daily. 12 g 11 Active pravastatin (PravachoL) 20 mg tablet Take 1 tablet (20 mg total) by mouth daily. 90 tablet 3 025 2025 Active metoprolol tartrate (Lopressor) 25 mg tablet Take 1.5 tablets (37.5 mg total) by mouth 2 (two) times a day. 270 tablet 3 Active propylene glycoL (Felt Meibo Tears) 0.6 % ophthalmic solution Administer 1 drop into both eyes 3 (three) times a day. 5 mL Active neomycin-polymy bonnie B-dexameth (Maxitrol) 3.5 mg/g-10,000 unit/g-0.1 % ophthalmic ointment Apply to both eyelids twice a day. 3.5 g Active perfluorohexylo ctane, PF, (Miebo) 100 % ophthalmic drops Administer 1 drop into both eyes 4 (four) times a day. 3 mL Active latanoprost (Xalatan) 0.005 % ophthalmic solution INSTILL 1 DROP INTO EACH EYE AT BEDTIME 7.5 mL Active Farxiga 5 mg tablet Take 1 tablet by mouth once daily 90 tablet 3 025 Active gabapentin (Neurontin) 300 mg capsule Take 1 capsule (300 mg total) by mouth at bedtime. 30 capsule 025 Active dapagliflozin propanediol (Farxiga) 5 mg tablet Take 1 tablet (5 mg total) by mouth daily. 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 30 tablet 3 024 2024 Discontinued ciprofloxacin (Cipro) 500 mg tabletIndicatio ns:Urinary Tract Infection Site Not Specified Take 1 tablet (500 mg total) by mouth 2 (two) times a day before morning and evening meals for 7 days. 14 tablet 025 2024 nitrofurantoin monohydrate (Macrobid) 100 mg capsuleIndicati ons:Cystitis Unspecified Without Hematuria Take 1 capsule (100 mg total) by mouth 2 (two) times a day for 7 days. 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 Arthritis Hip 03/30/2022 Headache Frequent 11/10/2021 Jail (Current) Anticoagulant Treatment 07/30 Elevated Alkaline Phosphatase 04/24/2020 Incontinence Fecal 09/11/2019 Overview (09/11/2019): Added automatically from request for surgery [id number] Urgency Fecal 09/11/2019 Overview (09/11/2019): Added automatically from request for surgery [id number] Hypomagnesemia 08/21/2019 Caruncle Urethra 06/29/2019 Deficiency Vitamin B12 05/22/2019 Chronic Cough 05/22/2019 Atrial Fibrillation Paroxysmal 02/14/2019 Imbalance Non Orthopedic 11/21/2018 History Of Falling 08/14/2018 Radiation Therapy Personal History 04/05/2018 Gammopathy Monoclonal 05/11/2017 Hyperlipidemia Mixed 05/11/2017 Gastroesophageal Reflux Disease 05/11/2017 Abuse Tobacco Smoking 05/11/2017 Stroke Cerebrovascular Accident Personal History 05/11/2017 High Risk Medication 05/11/2017 Pain Low Back Chronic 11/02/2016 Cancer Lung Small Cell Personal History 10/08/19 17 Cancer Staging:Clinical stage from 10/31/2017:Stage Unknown(TX, N2, M0) - Signed by Joann Rajan APRN, C.N.P., M.S. 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 Diabetes Mellitus Type 2 With Diabetic Neuropath y 09/08/2015 Overview (08/25/2017): DM2 Neuropathy Primary Open-Angle Glaucoma Unspecified Stage Ri ght 10/02/2013 Gastroparesis 07/07/2010 Anemia Of Chronic Renal Disease 04/09/2010 Overview (10/19/2016): Anemia in Chronic Kidney Disease Diabetes Mellitus Type 2 With Diabetic Nephropat hy 08/18/2005 Chronic Kidney Disease (CKD) , Stage 3b Glomerular Filtration Rate (GFR) 30 To 44 08/12/2005 Malignant Neoplasm Of Lung Right Resolved Problems Problem Noted Date Diagnosed Date Resolved Date Hypoglycemia 06/08/2023 06/20/2023 Mass Lung 01/27/2023 04/26/2023 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 12/20/2023 Fracture Radius Nondisplaced Styloid Process Closed Subsequent With Routine Healing Left 09/12/2022 06/29/2023 Overview (09/12/2022): - recent fall and fracture of the left radial styloid on 09/09 - she was evaluated for this on 09/09, splinted, and scheduled for orthopedics for 09/15 - returned to clinic yesterday 09/11 due to worsening swelling and increased tightness and pain at the wrist - splint was removed 09/11 and demonstrated significant bruising, swelling, and demarcation from cesar bandage - splint was trimmed down and reapplied on 09/11 - today, 09/12, she reports that the swelling and bruising have significant improved - she notes a couple pressure point areas that have been irritating her thumb and pinky Assessment & Plan (09/12/2022 1:51 PM CDT): - swelling significantly improved and we were able to remove her ring today that was causing pressure and pain against her pinky finger - wrap removed and extra padding added to areas of irritation - splint and wrap reapplied, patient reported improved comfort - follow up with orthopedic surgery on 09/15 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 04/08/2022 04/08/2022 Pain Hip Left 03/29/2022 01/18/2023 Rash 07/01/2021 09/03/2021 Abnormal Computed Tomography Chest 11/25/2020 12/04/2020 Hyperkalemia 11/21/2020 09/27/2022 Hyponatremia 11/21/2020 12/04/2020 Abnormal Positron Emission Tomography Scan 12/25/2019 02/26/2020 Other Esophagitis 10/12/2019 11/22/2019 Overview (10/12/2019): Added automatically from request for surgery [id number] Abnormal Computed Tomography Abdomen 09/11/2019 02/26/2020 Overview (09/11/2019): Added automatically from request for surgery [id number] Pain Sacral 09/10/2019 02/26/2020 Urinary Tract Infection (UTI)/Bacteriuria NOS 06/29/19 20 09/27/2022 Overview (06/28/2022): Diagnosis Maintenance Updates Pulmonary Nodule Computed To mography Indeterminate 05/22/2019 08/26/2020 Smoking Tobacco Use Personal History 05/22/2019 03/14/2024 Headache Unspecified 02/21/2019 019 Diarrhea 03/31/2018 05/27/2020 Bloating Abdominal 07/08/2017 9 Ulcer Peptic 05/19/2017 02/14/2019 Osteoporosis 05/11/2017 11/21/2017 Complications Following Stroke NOS 05/11/2017 05/11/2017 Stool Positive Occult Blood 03/03/2017 10/01/2017 Hypertensive Chronic Kidney Disease With Stage 1 Through Stage 4 Chronic Kidney Disease, Or Unspecified Chronic Kidney Disease 01/11/2017 10/01/2017 Rhinosinusitis Chronic 11/24/201610/01 Use Narcotic Chronic As Prescribed 11/02/2016 10/01/2017 Emphysema Centrilobular 10/07/201607/29 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 09/24/2016 10/01/2017 Iridis Rubeosis Left 07/28/2015 018 Vitrectomy Status Post 07/28/201510/01 Hypertensive Chronic Kidney Disease With Stage 1 Through Stage 4 Chronic Kidney Disease, Or Unspecified Chronic Kidney Disease 07/21/2015 05/11/2017 Overview (10/19/2016): Hypertension (HTN) Essential NOS Diabetes Mellitus Type 2 Wit h Diabetic Neuropathy 04/17/2015 05/11/2017 Overview (10/19/2016): DM2 Neuropathy Infection Urinary Tract Personal History 04/17/2015 10/01/2017 Uveitis Anterior Acute 11/01/201310/01 Intraocular Lens Implant Status Post 10/16/2013 10/01/2017 Opacity Lens Posterior Capsule 02/08/2012 10/01/2017 Hypotension 09/14/2011 10/01/2017 Cataract 08/24/2011 10/01/2017 Overview (08/25/2017): Overview: Right Eye Follow Up High Risk Medicati on Treatment Completed 04/19/2011 10/01/2017 Abrasion Cornea Initial 03/26/2010 0509/2017 Uveitis 03/24/2010 10/01/2017 Pain Shoulder 07/14/2009 10/01/2017 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 06/18/2009 08/18/2017 Overview (10/19/2016): DM Retinopathy Macular Edema 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 06/18/2009 05/11/2017 Overview (10/19/2016): DM Retinopathy Proliferative Loss Visual 06/16/2009 10/01/2017 Edema Macular Cystoid 04/16/20092017 Insomnia 09/17/2008 10/01/2017 Fracture Tibia Upper Closed Initial 07/24/2008 10/01/2017 Nephrotic Syndrome 07/18/2008 8 Proteinuria 05/16/2008 10/01/2017 Photocoagulation Status Post 04/23/2008 10/01/2017 Hemorrhage Vitreous 11/24/2007 02/15/20 19 Extraction Cataract Without Intraocular Lens Status Post 10/26/2007 02/14/2019 Cystoid Macular Edema Follow ing Cataract Surgery Right Eye 08/30/2007 10/01/2017 Hyperlipidemia On Treatment 05/01/2007 11/21/2017 Constipation 02/23/2007 11/21/2017 DM Retinopathy Proliferative (PDR) 01/26/2007 08/18/2017 Hypertension 08/18/2005 08/18/2017 Diabetes Mellitus Type 2 08/06/2005 Encounters * This document contains information received from the source organization and may not represent a complete record from that organization. Date Type Department Care Team Description 09/13/2024 Clinical Communication Department of Radiation Oncology in [place], [place] [address] [place] [address] Franny Dutta M.D. 09/12/2024 2:40 PM CDT Comprehensive Visit Department of Oncology in [place] [address] [place] [address] Kerrie Vela M.B., B.Neto., M.D. 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 09/07/2024 Documentation Department of Radiation Oncology in [address] [address] Franny Dutta M.D. 09/06/2024 Clinical Communication Department of Oncology in [place], [place] [address] [place] [address] Marlo Diallo M.D. 09/05/2024 1:30 PM CDT Infusion Department of Infusion Therapy in [place], [place] [address] [address] Marlo Diallo M.D. 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 Hydration 09/03/2024 12:10 PM CDT - 09/03/2024 11:59 PM CDT Hospital Encounter Department of Laboratory Medicine in [address] [address] Jenny Vaca M.D. Diabetes Mellitus Type 2 With Diabetic Neuropathy (HCC) Discharge Disposition: Home or Self Care 09/03/2024 10:59 AM CDT - 09/03/2024 12:09 PM CDT Hospital Encounter Department of Radiology in [address] [address] Kay Thayer P.A.-C., M.S. Secondary Malignant Neoplasm Brain (HCC) Discharge Disposition: Home or Self Care 09/03/2024 10:45 AM CDT Infusion Department of Infusion Therapy in [address] [address] Marlo Diallo M.D. 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 Albumin, Random, Urine 09/03/2024 Patient Outreach Department of Oncology in [place], [place] [address] [place] [address] Alek Elias M.S.N., R.NMikhail Carrasquillo Coordination 08/31/2024 Referral Triage Department of Oncology in [place], [place] [address] [place] [address] Dawood Ruiz P.A.-C. 08/31/2024 Orders Only Department of Oncology in [place], [place] [address] [place] [phone] Marlo Diallo M.D. 08/31/2024 Clinical Communication Department of Oncology in [place], [place] [address] [place] [address] Marlo Diallo M.D. Decision 08/29/2024 4:20 PM CDT Office Visit Department of Oncology in [place], [place] [address] [place] [phone] Marlo Diallo M.D. 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 Date change 08/24/2024 9:45 AM CDT Infusion Department of Infusion Therapy in [address] [address] Marlo Diallo M.D. 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 Dysuria Discharge Disposition: Home or Self Care 08/23/2024 9:00 AM CDT Lab Department of Infusion Therapy in [place], [place] [address] [place] [phone] Marlo Diallo M.D. 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 Cystitis Unspecified Without Hematuria (Primary Dx) 08/23/2024 Orders Only Department of Oncology in [place], [place] [address] [place] [phone] Amina Jones R.N. Dysuria (Primary Dx) 08/22/2024 Refill Department of Internal Medicine in [address] [address] Jenny Vaca M.D. Med Refill 08/17/2024 1:00 PM CDT Infusion Department of Infusion Therapy in [address] [address] Marlo Diallo M.D. 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 Dysuria Discharge Disposition: Home or Self Care 08/17/2024 Orders Only Department of Oncology in [place], [place] [address] [place] [address] Marion Ordoñez M.D. 08/17/2024 Clinical Communication Department of Internal Medicine in [place], [place] [address] [address] Jenny Vaca M.D. 08/17/2024 Orders Only Department of Oncology in [address] [address] Marion Ordoñez M.D. Urinary Tract Infection Site Not Specified (Primary Dx) 08/17/2024 Orders Only Department of Oncology in [place], [place] [address] [address] Amina Jones R.N. Dysuria (Primary Dx) 08/17/2024 Nurse Triage Department of Internal Medicine in [place], [place] [address] [address] Katherine Bhardwaj R.N. Urinary Symptom; Back Pain 08/04/2024 Refill Department of Ophthalmology in [place], [place] [address] [address] Tomás Mcbride M.D. Med Refill 08/02/2024 9:30 AM TERMITE CONTROL TECHNICIAN Infusion Department of Infusion Therapy in [place], [place] [address] [address] Marlo Diallo M.D. 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 Secondary Malignant Neoplasm Brain (HCC) Discharge Disposition: Home or Self Care 07/26/2024 9:15 AM TERMITE CONTROL TECHNICIAN Infusion Department of Infusion Therapy in [place], [place] [address] [place] [phone] Marlo Diallo M.D. 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 07/24/2024 3:20 PM TERMITE CONTROL TECHNICIAN Office Visit Department of Oncology in [place], [place] [address] [place] [phone] Marlo Diallo M.D. 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 Dry Eye Syndrome Bilateral (Primary Dx); Primary Open-Angle Glaucoma Unspecified Stage Bilateral; Diabetes Mellitus Type 2 (HCC) 07/23/2024 9:30 AM TERMITE CONTROL TECHNICIAN Lab Department of Infusion Therapy in [address] [phone] Marlo Diallo M.D. 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 Med Refill 07/11/2024 Refill Department of Internal Medicine in [address] [phone] Jenny Vaca M.D. Med Refill 07/05/2024 9:00 AM TERMITE CONTROL TECHNICIAN Infusion Department of Infusion Therapy in [address] [phone] Marlo Diallo M.D. 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 Secondary Malignant Neoplasm Brain (HCC) (Primary Dx); Dysfunction Eustachian Tube Bilateral; Myalgia; Hyperlipidemia Mixed; Atrial Fibrillation Paroxysmal (HCC) 06/20/2024 2:08 PM TERMITE CONTROL TECHNICIAN - 06/20/2024 11:59 PM TERMITE CONTROL TECHNICIAN Hospital Encounter Department of Radiation Oncology in [address] [phone] Franny Dutta M.D. Discharge Disposition: Home or Self Care 06/20/2024 Documentation Department of Radiation Oncology in [address] [phone] Franny Dutta M.D. 06/19/2024 2:30 PM TERMITE CONTROL TECHNICIAN - 06/19/2024 11:59 PM TERMITE CONTROL TECHNICIAN Hospital Encounter Department of Radiation Oncology in [address] [phone] Franny Dutta M.D. Discharge Disposition: Home or Self Care 06/19/2024 1:57 PM TERMITE CONTROL TECHNICIAN - 06/19/2024 2:29 PM TERMITE CONTROL TECHNICIAN Hospital Encounter Department of Radiation Oncology in [address] [phone] Franny Dutta M.D. 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 Discharge Disposition: Home or Self Care 06/18/2024 1:20 PM TERMITE CONTROL TECHNICIAN Office Visit Department of Internal Medicine in [place], [place] [address] [phone] Jenny Vaca M.D. 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 Or Unspecified Chronic Kidney Disease (HCC); Atrial Fibrillation Paroxysmal (HCC); Jail (Current) Anticoagulant Treatment; Chronic Kidney Disease (CKD), Stage 3b Glomerular Filtration Rate (GFR) 30 To 44 (HCC); Malignant Neoplasm Of Lung Right (HCC); Secondary Malignant Neoplasm Brain (HCC); Jail Current Drug Therapy, 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; Anemia 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 Induced; Radiation Therapy Personal History; Weakness General; 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 Discharge Disposition: Home or Self Care from Last 3 Months Immunizations Immunization Administration Dates Next Due DTaP (Infanrix, Tripedia) 08/14/2007 HZV (ZOSTAVAX) 10/19/2011 HepB Adult 10/13/2023(Deferred: Patient winifred armendariz) Influenza Split 03/05/2005 Influenza, Quadrivalent, Adj uvanted, Preservative Free 01/20/2023,02/26/2022,03/08/2021,2019 Influenza, Seasonal, Injectable 04/05/2007 Influenza, Unspecified 01/30/2020,2018,02/18/2017,2015,04/03/2015,03/12/2014,03/28/2013,1 ,02/15/2011,04/08/2010, 004,04/05/2002 PCV13 09/22/2014,09/02/2014 PCV20 02/15/2023 PPSV23 01/26/2016,01/05/2005 RZV (SHINGRIX) 05/03/2020,02/25/2020 SARS-COV-2 (COVID-19) - MODE RNA (12 YEARS AND OLDER) Fall Seasonal 10/13/2023(Deferred: Patient decision) SARS-COV-2 (COVID-19) - PFIZ ER (Discontinued)(12 years or older) 04/20/2021 Td Preservative Free (TENIVA C, DECAVAC) 11/14/2018 Tdap 05/19/2019,08/14/2007 influenza trivalent high dos e (HD)(PF) 03/29/2019,02/22/2018 influenza trivalent vaccine (6 months and older)(PF) 05/08/2009,03/25/2008 influenza vaccine quad (FLUZONE/FLUARIX) (6 months and older)(PF) 03/11/2020 Family History Medical History Relation Name Comments Colon cancer Brother Hypertension Brother Gastric bypass Daughter Alcohol abuse Father Glaucoma Father Heart failure Grandfather Maternal Stroke Grandmother Maternal Glaucoma Mother Hodgkin disease Mother Hypertension Sister Phlebitis Sister Lower extremity Relation Name Status Comments Brother Daughter Father Grandfather Maternal Grandmother Maternal Mother Sister Social History Tobacco Use Types Packs/Day Years Used Date Smoking Tobacco: Every Day Cigarettes 0.5 60 Passive Smoke Exposure: Current Smokeless Tobacco: Never Tobacco Cessation:Ready to Q uit: Not Asked; Counseling Given: Not Answered Alcohol Use Standard Drinks/Week Comments Yes 1 (1 standard drink = 0.6 oz pur e alcohol) 1 beer per night [employer] Answer Date Recorded In the past 12 months has e [employer], gas, oil, or water [employer] threatened to shut off services in your [...] week 09/27/2022 How often do you attend [facility] or christian services? More than 4 times per year 09/27/2022 Do you belong to any clubs o r organizations such as temple groups, unions, fraternal or athletic groups, or [...] Answer Date Recorded PHQ-2 Score 0 06/18/2024 [facility] - Occupational Stress Questionnaire Answer Date [...] your living situation today? I have a [facility] place to live 07/08/2023 Comments No Sex and Gender Information Value Date Recorded Sex Assigned at Not on file Legal Sex Female 8:27 AM TERMITE CONTROL TECHNICIAN Gender Identity Female 04/06/2017 8:58 AM TERMITE CONTROL TECHNICIAN Sexual Orientation Straight 04/06/2017 8: 58 AM TERMITE CONTROL TECHNICIAN Last Filed Vital Signs Vital Sign Reading [...] oz) 09/12/2024 2:38 P M CDT Height 165 cm (5' 4.96) 06/22/2024 10:59 AM TERMITE CONTROL TECHNICIAN Body Mass Index 21.19 06/22/2024 10:59 AM TERMITE CONTROL TECHNICIAN Plan of Treatment Upcoming Encounters Date Type Department Care Team (Late st Contact Info) Description 09/14/2024 11:00 AM CDT Admin Visit Department of Oncology in [place], [place] [address] [place] [phone] 09/17/2024 8:00 AM CDT Lab Department of Infusion Therapy in [place], [place] [address] [phone] Jenny Vaca M.D. [address] [phone] 09/17/2024 1:30 PM CDT Office Visit Department of Internal Medicine in [place], [place] [address] [phone] Elissa Luo, PFrancesca.-C., M.S. [address] [phone] 09/18/2024 8:00 AM CDT Clinical Support Department of Oncology in [address] [phone] Blossom Hernandez M.S.W., L.I.C.S.W. [address] [place] [phone] 09/20/2024 10:00 AM CDT Telemedicine Department of Oncology in [address] [phone] Kerrie Vela M.B., B.Ch., MPhuc [address] [place] [phone] 09/24/2024 8:30 AM CDT Lab Department of Oncology in [place], [place] [address] [place] [phone] Kerrie Vela M.B., B., M.DForeign [address] [place] [phone] 09/24/2024 9:40 AM CDT Office Visit Department of Oncology in [place], [place] [address] [place] [phone] Kerrie Vela M.B., BDuran, M.DForeign [address] [place] [phone] 09/24/2024 10:20 AM CDT Education Department of Oncology in [place], [place] [address] [place] [phone] Kerrie Vela M.B., BDuran, M.DForeign [address] [place] [phone] 09/24/2024 11:30 AM CDT Appointment [facility], [facility], [facility] [address] [place] [phone] Kerrie Vela M.B., B.ChForeign, M.DForeign [address] [place] [phone] 09/25/2024 8:30 AM CDT Appointment [facility], [facility], [facility] Level [address] [place] [phone] Kerrie Vela M.B., B., M.DForeign [address] [place] [phone] 09/26/2024 8:30 AM CDT Appointment [facility], [facility], [facility] [address] [place] [phone] Kerrie Vela M.B., B.ChForeign, M.DForeign [address] [place] [phone] 09/28/2024 11:45 AM CDT Lab Department of Oncology in [place], [place] [address] [place] [phone] Kerrie Vela M.B., B.ChForeign, M.DForeign [address] [place] [phone] 09/28/2024 1:40 PM CDT Office Visit Department of Oncology in [place], [place] [address] [place] [phone] Dawood Ruiz P.A.-C. [address] [place] [phone] 10/01/2024 8:00 AM CDT Appointment [facility], [facility], [facility] [address] [place] [phone] Kerrie Vela M.B., B.Ch., M.D. [address] [place] [phone] 10/02/2024 8:00 AM CDT Appointment [facility], [facility], [facility] [address] [place] [phone] Kerrie Vela M.B., B.ChForeign, M.DForeign [address] [place] [phone] 10/03/2024 8:00 AM CDT Appointment [facility], [facility], [facility], [facility] Level [address] [place] [address] Kerrie Vela M.B., B.ChForeign, M.DForeign [address] [place] [phone] 10/10/2024 6:30 AM CDT Lab Department of Oncology in [place], [place] [address] [place] [phone] Kerrie Vela M.B., B.ChForeign, M.D. [address] [place] [phone] 10/10/2024 8:20 AM CDT Office Visit Department of Oncology in [place], [place] [address] [place] [phone] Brittney Stuart M.D. [address] [place] [phone] 10/10/2024 12:30 PM CDT Infusion Department of Oncology in [place], [place] [address] [place] [phone] Kerrie Vela M.B., B.Ch., M.D. [address] [place] [phone] 10/12/2024 11:20 AM CDT Office Visit Department of Oncology in [place], [place] [address] [place] [phone] Kerrie Vela M.B., B.Ch., M.D. [address] [place] [phone] 10/17/2024 1:00 PM CDT Office Visit Department of Ophthalmology in [place], [place] [address] [place] [phone] Tomás Mcbride M.D. [address] [place] [address] 10/23/2024 8:45 AM CDT Lab Department of Oncology in [place], [place] [address] [place] [phone] Kerrie Vela M.B., B., M.D. [address] [place] [phone] 10/23/2024 11:00 AM CDT Office Visit Department of Oncology in [place], [place] [address] [place] [phone] Kerrie Vela M.B., B.ChForeign, M.D. [address] [place] [phone] 10/23/2024 11:30 AM CDT Appointment Department of Radiology in [place], [place] [address] [place] [phone] Franny Dutta M.D. [address] [place] [phone] 10/24/2024 7:30 AM CDT Infusion Department of Oncology in [place], [place] [address] [place] [phone] Kerrie Vela M.B., B.ChForeign, M.D. [address] [place] [phone] 10/24/2024 11:00 AM CDT Appointment Department of Radiation Oncology in [place], [place] [address] [place] [phone] Franny Dutta M.D. [address] [place] [phone] 10/25/2024 11:00 AM CDT Office Visit Department of Oncology in [place], [place] [address] [place] [phone] Kerrie Vela M.B., B.ChForeign, M.DForeign [address] [place] [phone] 11/06/2024 7:00 AM CDT Lab Department of Oncology in [place], [place] [address] [place] [phone] Kerrie Vela M.B., B.ChForeign, M.DForeign [address] [place] [phone] 11/06/2024 9:00 AM CDT Office Visit Department of Oncology in [place], [place] [address] [place] [phone] Dawood Ruiz P.A.-C. [address] [place] [phone] 11/06/2024 10:00 AM CDT Infusion Department of Oncology in [place], [place] [address] [place] [phone] Kerrie Vela M.B., B.ChForeign, M.D. [address] [place] [phone] 11/20/2024 6:30 AM CDT Lab Department of Laboratory Medicine and Pathology, [facility], in [place], [place] [address] [place] [phone] Kerrie Vela M.B., B.ChForeign, M.D. [address] [place] [phone] 11/20/2024 8:20 AM CDT Office Visit Department of Oncology in [place], [place] [address] [place] [address] Dawood Ruiz P.A.-C. [address] [place] [phone] 11/20/2024 9:00 AM CDT Infusion Department of Oncology in [place], [place] [address] [place] [phone] Kerrie Vela M.B., B.ChForeign, M.D. [address] [place] [phone] 12/04/2024 8:30 AM CDT Lab Department of Laboratory Medicine and Pathology, [facility] in [place], [place] [address] [place] [phone] Kerrie Vela M.B., B.Ch., M.D. [address] [place] [phone] 12/04/2024 10:20 AM CDT Office Visit Department of Oncology in [place], [place] [address] [place] [phone] Kerrie Vela M.B., B.Ch., M.D. [address] [place] [phone] 12/04/2024 11:00 AM CDT Infusion Department of Oncology in [place], [place] [address] [place] [phone] Kerrie Vela M.B., B.Ch., M.D. [address] [place] [phone] Health Maintenance Due Date Last Done Comments Hepatitis B Vaccines (1 of 3 - Risk 3-dose series) 2006 RSV vaccine - (32-36 weeks) or 60+ years (1 - 1-dose 75+ series) 2021 COVID-19 Vaccine (5 - 2023- season) 2024 04/27/2022, 04/20/2021, 08/30/2020, Additional history exists Influenza Vaccine (#1) 2024 , 02/26/2022, 03/08/2021, Additional history exists Visit: Medicare Annual Wellness 07/09/2024 07/08/2023 Diabetic Office Visit with Foot Exam 09/21/2024 09/22/2023, 06/04/2021, 05/27/2020, Additional history exists Hemoglobin A1C 12/12/2024 06/14/2024, 02/27, 12/20/2023, Additional history exists Office Visit for Blood Pressure Check / Re-check 12/12/2024 09/12/2024 Diabetes Education 01/09/2025 01/10/2024, 0 02/17/2017, 12/14/2016, Additional history exists Tobacco Cessation counseling 03/14/2025 03/14/2024 Visit: Chronic Disease, age 18+ 06/18/2025 06/18/2024, 06/18/2024 Dilated Eye Exam 07/23/2025 07/23/2024, 06/2023, 05/12/2021, Additional history exists Creatinine Level (Kidney Function Test) 08/28/2025 08/28/2024, 08/23/2024, 07/31/2024, Additional history exists Potassium Level 08/28/2025 08/28/2024, 07/29, 07/31/2024, Additional history exists Sodium Level 08/28/2025 08/28/2024, 07/29, 07/31/2024, Additional history exists Urine Albumin 09/03/2025 09/03/2024, 05/30, 06/02/2021, Additional history exists DTaP,Tdap,and Td Vaccines (5 - Td or Tdap) 05/19/2029 05/19/2019, 11/14/2018, 08/14/2007, Additional history exists Hepatitis C Screening Completed 10/16/2015 Colonoscopy Discontinued 09/27/2019, 07/15/2005 Colorectal Cancer Surveillance Discontinued Zoster Vaccines Completed 05/03/2020, 01/29, 10/19/2011 Mammogram Discontinued 06/02/2020, 07/29, 08/11/2017, Additional history exists Pneumococcal vaccine (50+ years) Completed 02/15/2023, 01/26/2016, 09/22/2014, Additional history exists Fall Risk Screen (Annual) Completed 06/18/2024 Depression Screening (Annual PHQ-2) Completed 06/22/2024, 06/18/2024 CT Colonography Discontinued Cologuard Discontinued HPV Vaccines Aged Out No longer eligi ble based on patient's age to complete this topic IPV Vaccines Aged Out No longer eligi ble based on patient's age to complete this topic Medical Devices Implanted Type Area Field Clinical Engineer Device Identifier Shelf Expiration Date Model / Serial / Lot Cont Glucose Monitoring (Cgm) Cont Glucose Monitoring (CGM) Arm Description:[employer] canelo glucose monitor Hardware E.G. Pins/Screws/Ro ds-09/24/2016 Implanted:08/29 (Quantity not on file) Hardware e.g. pins/screws/r ods Knee Description:Device Status Te xt - Hardware. plate & screws in left knee. Implantable Port Implantable Port Chest Medtronic Mini Insulin Pump Internal Infusion Pump: Other Abdomen Ocular Lens Ocular Lens Left: Eye Lens 6.0x20.5 [id number]-[id number] - Byrnes [id number] Implanted:Qty: 1 on 09/15/2007 Ocular Lens Left: Other/Legacy - See Implant Description Lonnie Saiguo Description:Device Manufactu rer - [employer]. Body Location - Left. Device Status Text - [id number]. 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) ALBUMIN, RANDOM, U Routine 09/03/2024 12:15 PM CDT Diabetes Mellitus Type 2 With Diabetic Neuropathy (HCC) MR BRAIN WITHOUT AND WITH IV CONTRAST RAD - Routine (most inpatients and all outpatients) 09/03/2024 12:08 PM CDT Secondary Malignant Neoplasm Brain (HCC) PET CT SKULL TO THIGH RAD - Routine (most inpatients and all outpatients) 08/28/2024 3:36 PM CDT Cancer Lung Small Cell Personal History Finish Sander Current Drug Therapy, 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) Pain Hip Left MAGNESIUM, S Routine 08/28/2024 1:53 PM CDT Cancer Lung Small Cell Personal History Jail Current Drug Therapy, 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) COMPREHENSIVE METABOLIC PANEL, S/P Routine 08/28/2024 1:53 PM CDT Cancer Lung Small Cell Personal History Jail Current Drug Therapy, 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) CBC WITH DIFFERENTIAL, B Routine 08/28/2024 1:53 PM CDT Cancer Lung Small Cell Personal History Jail Current Drug Therapy, 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) URINALYSIS WITH MICROSCOPIC Routine 08/23/2024 9:34 AM CDT Dysuria BACTERIAL CULTURE, AEROBIC + SUSC, URINE Routine 08/23/2024 9:34 AM CDT Dysuria MAGNESIUM, S Routine 08/23/2024 8:51 AM CDT Cancer Lung Small Cell Personal History Finish Sander Current Drug Therapy, 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) COMPREHENSIVE METABOLIC PANEL, S/P Routine 08/23/2024 8:51 AM CDT Cancer Lung Small Cell Personal History Jail Current Drug Therapy, 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) CBC WITH DIFFERENTIAL, B Routine 08/23/2024 8:51 AM CDT Cancer Lung Small Cell Personal History Jail Current Drug Therapy, 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) URINALYSIS WITH MICROSCOPIC Routine 08/17/2024 9:32 AM CDT Dysuria BACTERIAL CULTURE, AEROBIC + SUSC, URINE Routine 08/17/2024 9:32 AM CDT Dysuria MAGNESIUM, S Routine 07/31/2024 4:46 PM TERMITE CONTROL TECHNICIAN Cancer Lung Small Cell Personal History Jail Current Drug Therapy, 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) COMPREHENSIVE METABOLIC PANEL, S/P Routine 07/31/2024 4:46 PM TERMITE CONTROL TECHNICIAN Cancer Lung Small Cell Personal History Jail Current Drug Therapy, 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) CBC WITH DIFFERENTIAL, B Routine 07/31/2024 4:46 PM TERMITE CONTROL TECHNICIAN Cancer Lung Small Cell Personal History Finish Sander Current Drug Therapy, 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) MR BRAIN WITHOUT AND WITH IV CONTRAST RAD - Routine (most inpatients and all outpatients) 07/30/2024 10:29 AM TERMITE CONTROL TECHNICIAN Secondary Malignant Neoplasm Brain (HCC) MAGNESIUM, S Routine 07/23/2024 9:28 AM TERMITE CONTROL TECHNICIAN Cancer Lung Small Cell Personal History Jail Current Drug Therapy, 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) COMPREHENSIVE METABOLIC PANEL, S/P Routine 07/23/2024 9:28 AM TERMITE CONTROL TECHNICIAN Cancer Lung Small Cell Personal History Finish Sander Current Drug Therapy, 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) CBC WITH DIFFERENTIAL, B Routine 07/23/2024 9:28 AM TERMITE CONTROL TECHNICIAN Cancer Lung Small Cell Personal History Finish Sander Current Drug Therapy, 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) DX HIP AND PELVIS LEFT 2-3 VIEWS RAD - Routine (most inpatients and all outpatients) 07/05/2024 8:23 AM TERMITE CONTROL TECHNICIAN Cancer Lung Small Cell Personal History 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) Pain Hip Left MAGNESIUM, S Routine 07/02/2024 10:48 AM TERMITE CONTROL TECHNICIAN Cancer Lung Small Cell Personal History Finish Sander Current Drug Therapy, 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) COMPREHENSIVE METABOLIC PANEL, S/P Routine 07/02/2024 10:48 AM TERMITE CONTROL TECHNICIAN Cancer Lung Small Cell Personal History Jail Current Drug Therapy, 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) CBC WITH DIFFERENTIAL, B Routine 07/02/2024 10:48 AM TERMITE CONTROL TECHNICIAN Cancer Lung Small Cell Personal History Finish Sander Current Drug Therapy, 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) ARIA COURSE COMPLETE TREATMENT INFORMATION Routine 06/20/2024 2:37 PM TERMITE CONTROL TECHNICIAN ARIA COURSE COMPLETE TREATMENT INFORMATION Routine 06/20/2024 2:37 PM TERMITE CONTROL TECHNICIAN ARIA DAILY TREATMENT INFORMATION Routine 06/20/2024 2:37 PM TERMITE CONTROL TECHNICIAN ARIA DAILY TREATMENT INFORMATION Routine 06/19/2024 3:03 PM TERMITE CONTROL TECHNICIAN ARIA DAILY TREATMENT INFORMATION Routine 06/18/2024 3:38 PM TERMITE CONTROL TECHNICIAN ARIA DAILY TREATMENT INFORMATION Routine 06/15/2024 2:10 PM TERMITE CONTROL TECHNICIAN HEMOGLOBIN A1C, B Routine 06/14/2024 7:4 5 AM TERMITE CONTROL TECHNICIAN Diabetes Mellitus Type 2 With Diabetic Nephropathy (HCC) BI BREAST SCREENING BILATERAL WITH TOMOSYNTHESIS RAD - Routine (most inpatients and all outpatients) 06/02/2020 11:28 AM TERMITE CONTROL TECHNICIAN Screening Mammogram Average Risk Patient COLONOSCOPY 09/27/2019 10:02 AM CDT OPHTHALMOLOGY IMAGE EXAM Routine 11/16/2016 12:00 PM CDT HCV AB SCRN W/REFLEX TO HCV PCR, S Routine 10/16/2015 8:50 AM CDT from Last 3 Months or Most Recently Relevant to Health Maintenance Results * Aria Course Complete Treatment Information (09/07/2024 9:56 AM CDT) Only the most recent of3 resultswithin the time period is included. Course ID [id number] tSRT GOODE ARIA Course Start Date 5 08:18 CDT GOODE ARIA Course End Date 5 13:13 CDT GOODE ARIA First Treatment Date 5 09:47 CDT GOODE ARIA Last Treatment Date 5 09:56 CDT GOODE ARIA Treatment Elapsed Days 0 GOODE ARIA Reference Point [id number] GOODE ARIA Dosage Given to Date cGy 1999 GOODE ARIA Plan ID [id number] GOODE ARIA Fractions Treated to Date 1 GOODE ARIA Planned Total Fractions 1 GOODE ARIA Prescribed Dose Per Fraction 1999 GOODE ARIA Prescription Dose in cGy 1999 GOODE ARIA Plan Primary Reference Point [id number] GOODE ARIA 09/07/2024 9:56 AM CDT us Provider Not In System RADIATION ONCOLOGY ORDERA BLES Final Result GOODE ARIA na * Aria Daily Treatment Information (09/07/2024 9:56 AM CDT) Only the most recent of5 resultswithin the time period is included. Course ID [id number] tSRT GOODE ARIA Course Start Date 5 08:18 CDT GOODE ARIA First Treatment Date 5 09:47 CDT GOODE ARIA Last Treatment Date 5 09:56 CDT GOODE ARIA Treatment Elapsed Days 0 GOODE ARIA Reference Point [id number] GOODE ARIA Dosage Given to Date cGy 1999 GOODE [facility]A [facility] D[facility] Plan ID [id number] [facility] Fractions Treated to Date [facility] Planned Total Fractions [facility] Prescribed Dose Per Fraction 1999 [facility] Prescription Dose in cGy 1999 GOODE ARIA Plan Primary Reference Point [id number] GOODE ARIA 09/07/2024 9:56 AM CDT us Provider Not In System RADIATION ONCOLOGY ORDERA BLES Final Result Performing Organization Address [facility]/ZIP Co de Phone Number RUSSEL BRAGG na * Initial Rad Onc Treatment Planning CT Simulation (09/05/2024 11:30 AM CDT) Narrative [facility] - 09/05/2024 11:30 AM CDT Franny Dutta M.D. 09/05/2024 3:57 PM Initial Rad Onc Treatment Planning CT Simulation Performed by: Franny Dutta M.D. Authorized by: Franny Dutta M.D. us Franny Dutta M.D. RADIATION ONCOLOGY ORDERA BLES Final Result Performing Organization Address [facility] Co de Phone Number RUSSEL BRAGG na * (ABNORMAL) Albumin, Random, Urine (09/03/2024 12:15 PM CDT) Microalbumin 16.0 mg/L 09/03/2024 12:53 PM CDT [facility] Creatinine 62 mg/dL 09/03/2024 12:53 PM CDT [facility] Albumin/Creatinin e Ratio 26(H) <25 mg/g 09/03/2024 12:53 PM CDT [facility] Urine (Urine, Midstream) 09/03/2024 12:15 PM CDT 09/03/2024 12:22 PM CDT us Jenny Vaca M.D. LAB URINE ORDERABLES Final Result [facility] [address] [place] [address], [facility] [place] [address] [place] [address] * MR Brain without and with IV Contrast (09/03/2024 12:08 PM CDT) Only the most recent of2 resultswithin the time period is included. Anatomical Region Laterality Modality Head, Brain, Neuroradiology RST LOS, Neuroradiology ARZ LOS, Neuroradiology FLA LOS N/A Magnetic Resonance Impressions 09/03/2024 12:26 PM [...] extent. Procedure Note Maynor Peterson M.D. - 09/03/2024 EXAM: MR BRAIN WITHOUT AND WITH IV [...] cerebellum. Study performed fortreatment planning. Kay Thayer P.A.-C. M.S. IMG MRI PROCEDURES Fin al Result * PET CT Skull to Thigh FDG (08/28/2024 3:36 PM CDT) Anatomical Region Laterality Modality Body, Nuclear Medicine PET R ST LOS, PET ARZ LOS, Nuclear Medicine PET FLA LOS, Nuclear Medicine N/A Positron Emission Tomography (PET) Impressions 08/28/2024 4:42 PM CDT 1. Since 05/17/2024, increased size, number, and [...] the periphery of the right upper lobe. Narrative 08/28/2024 4:42 PM CDT EXAM: PET CT SKULL TO THIGH FDG COMPARISON: Multiple prior FDG PET/CT examinations most recently 05/17/2024 INDICATION: Small cell lung cancer. Status post chemoradiation. Biopsy-proven recurrence treated with chemoradiation and immunotherapy. Continuing on treatment with lurbinectedin. Subsequent treatment strategy. F-[address] scan was performed from the mid calvarium through the upper thighs with CT fusion imaging for attenuation correction, anatomic coregistration, and respiratory gating only. Serum glucose at time of F-18 FDG injection: 115 mg/dL. Uptake time: 60 minutes following injection. The patient reports no recent vaccinations. FINDINGS: Similar mild FDG uptake within consolidative and groundglass opacities with associated volume loss and architectural distortion in the right middle lobe medially abutting the ana. Redemonstrated is micronodularity about the medial right lung with increased size, number, and FDG uptake about a few adjacent nodules. For example along the right major fissure is a 7 mm nodule with a SUV max of 3.9 (series 604, image 123) and along the right heart border is a 12 mm nodule with a SUV max of 8.2 (series 604, image 125) both not definitely visualized above background on prior imaging. New 8 mm solid nodule in the periphery of the left upper lobe with a SUV max of 3.9 (series 604, image 104). Stable 17 mm nodule in the right lower lobe anteriorly with FDG uptake similar to background lung. Stable right pleural/chest wall metastasis involving the right lateral fourth rib with associated soft tissue thickening and mild FDG uptake. Stable mildly FDG avid subcarinal lymph node. Stable low level FDG uptake with a SUV max of 1.9 within nodular opacities in the periphery of the right upper lobe. Known intracranial metastases were better evaluated on recent brain MR performed on 07/30/2024. Significant incidental findings on low-dose unenhanced CT fusion images: Not significant change from 05/17/2024. RADIOPHARMACEUTICAL/MEDS: Route: intravenous fludeoxyglucose F 18 injection SKILLED NURSING (FDG F-18),13.2 millicurie Procedure Note Derick Pierre M.D. - 08/28/2024 EXAM: PET CT SKULL TO THIGH FDG COMPARISON: Multiple prior FDG PET/CT examinations most pkmoxbis46/19/2024 INDICATION: Small cell lung cancer. Status post chemoradiation.Biopsy-proven recurrence treated with chemoradiation and immunotherapy.Continuing on treatment with lurbinectedin. Subsequent treatmentstrategy. F-[address] scan was performed from the mid calvarium through theupper thighs with CT fusion imaging for attenuation correction, anatomiccoregistration, and respiratory gating only. Serum glucose at time of F-18 FDG injection: 115 mg/dL. Uptake time: 60 minutes following injection. The patient reports no recent vaccinations. FINDINGS: Similar mild FDG uptake within consolidative and groundglass opacitieswith associated volume loss and architectural distortion in the rightmiddle lobe medially abutting the ana. Redemonstrated is micronodularity about the medial right lung withincreased size, number, and FDG uptake about a few adjacent nodules. Forexample along the right major fissure is a 7 mm nodule with a SUV max of3.9 (series 604, image 123) and along the right heart border is a 12 mm nodule with a SUV max of 8.2 (series 604,image 125) both not definitely visualized above background on priorimaging. New 8 mm solid nodule in the periphery of the left upper lobe with a SUVmax of 3.9 (series 604, image 104). Stable 17 mm nodule in the right lower lobe anteriorly with FDG uptakesimilar to background lung. Stable right pleural/chest wall metastasis involving the right lateralfourth rib with associated soft tissue thickening and mild FDG uptake. Stable mildly FDG avid subcarinal lymph node. Stable low level FDG uptake with a SUV max of 1.9 within nodular opacitiesin the periphery of the right upper lobe. Known intracranial metastases were better evaluated on recent brain MRperformed on 07/30/2024. Significant incidental findings on low-dose unenhanced CT fusion images:Not significant change from 05/17/2024. RADIOPHARMACEUTICAL/MEDS: Route: intravenous fludeoxyglucose F 18 injection SKILLED NURSING (FDG F-18),13.2 millicurie IMPRESSION: 1. Since 05/17/2024, increased size, number, and FDG avidity of multiplesatellite nodules about the perihilar right lung and a new solid FDG avidnodule in the left upper lobe. 2. Stable right fourth rib and chest wall metastasis. 3. Redemonstrated post treatment changes in the right middle lobe. 4. Stable nodularity with low level FDG uptake in the periphery of theright upper lobe. Marlo Diallo M.D. [facility] NM PROCEDURES Final Result * (ABNORMAL) CBC with Differential, Blood (08/28/2024 1:53 PM CDT) Only the most recent of5 resultswithin the time period is included. Hemoglobin 9.0(L) 11.6 - 15.0 g/dL 08/28/2024 2:16 PM CDT [facility] Hematocrit 28.1(L) 35.5 - 44.9 % 08/28/2024 2:16 PM CDT [facility] Erythrocytes 2.95(L) 3.92 - 5.13 x10(12)/L 08/28/2024 2:16 PM CDT [facility] MCV 95.3 78.2 - 97.9 fL 08/28/2024 2:16 PM CDT [facility] RBC Distrib Width 15.9 12.2 - 16.1 % 08/28/2024 2:16 PM CDT [facility] Platelet Count 290 157 - 371 x10(9)/L 08/28/2024 2:16 PM CDT [facility] Leukocytes 8.2 3.4 - 9.6 x10(9)/L 08/28/2024 2:16 PM CDT [facility] Neutrophils 5.18 1.56 - 6.45 x10(9)/L 08/28/2024 2:16 PM CDT [facility] Lymphocytes 1.67 0.95 - 3.07 x10(9)/L 08/28/2024 2:16 PM CDT [facility] Monocytes 1.04(H) 0.26 - 0.81 x10(9)/L 08/28/2024 2:16 PM CDT [facility] Eosinophils 0.22 0.03 - 0.48 x10(9)/L 08/28/2024 2:16 PM CDT [facility] Basophils 0.04 0.01 - 0.08 x10(9)/L 08/28/2024 2:16 PM CDT [facility] Blood (Blood, Venous) 08/28/2024 1:53 PM CDT 08/28/2024 2:16 PM CDT Marlo Diallo M.D. LAB BLOOD ADD-ON Final Result Performing Organization Address [facility]/ZIP Co de Phone Number [facility] [address] [place] [address], [facility] [address] [place] [address] * Magnesium (08/28/2024 1:53 PM CDT) Only the most recent of5 resultswithin the time period is included. Magnesium, P 1.9 1.7 - 2.3 mg/dL 08/28/2024 2:28 PM CDT [facility] Blood (Blood, Venous) 08/28/2024 1:53 PM CDT 08/28/2024 2:28 PM CDT Marlo Diallo M.D. LAB BLOOD ADD-ON Final Result Performing Organization Address City[facility]/ZIP Co de Phone Number [facility] [address] [place] [address], [facility] [place] [address] [place] [address] * (ABNORMAL) Comprehensive Metabolic Panel (08/28/2024 1:53 PM CDT) Only the most recent of5 resultswithin the time period is included. Potassium, P 4.1 3.6 - 5.2 mmol/L 08/28/2024 2:28 PM CDT [facility] Sodium, P 137 135 - 145 mmol/L 08/28/2024 2:28 PM CDT [facility] Chloride, P 104 98 - 107 mmol/L 08/28/2024 2:28 PM CDT [facility] Bicarbonate, P 21(L) 22 - 29 mmol/L 08/28/2024 2:28 PM CDT [facility] Anion Gap, P 12 7 - 15 08/28/2024 2:28 PM CDT [facility] BUN (Blood Urea Nitrogen), P 18 6 - 21 mg/dL 08/28/2024 2:28 PM CDT [facility] Creatinine 1.42(H) 0.59 - 1.04 mg/dL 08/28/2024 2:28 PM CDT [facility] Estimated GFR (eGFR) 38(L) >=60 mL/min/BS A 08/28/2024 2:28 PM CDT [facility] Comment: Estimated GFR calculated using the 2020 CKD_EPI creatinine equation. Calcium, Total, P 8.9 8.8 - 10.2 mg/dL 08/28/2024 2:28 PM CDT [facility] Glucose, P 121 70 - 140 mg/dL 08/28/2024 2:28 PM CDT [facility] Protein, Total, P 6.2(L) 6.3 - 7.9 g/dL 08/28/2024 2:28 PM CDT [facility] Albumin, P 3.7 3.5 - 5.0 g/dL 08/28/2024 2:28 PM CDT [facility] Aspartate Aminotransferase (AST), P 20 8 - 43 U/L 08/28/2024 2:28 PM CDT [facility] Alkaline Phosphatase, P 114(H) 35 - 104 U/L 08/28/2024 2:28 PM CDT [facility] Alanine Aminotransferase (ALT), P 10 7 - 45 U/L 08/28/2024 2:28 PM CDT [facility] Bilirubin, Total, P 0.3 0.0 - 1.2 mg/dL 08/28/2024 2:28 PM CDT [facility] Blood (Blood, Venous) 08/28/2024 1:53 PM CDT 08/28/2024 2:28 PM CDT us Marlo Diallo M.D. LAB BLOOD ADD-ON Final Result [facility] [address] [place] [address], [place] [facility] [place] [address] [place] [address] * Bacterial Culture, Aerobic + Susceptibility, Urine (08/23/2024 9:34 AM CDT) Only the most recent of2 resultswithin the time period is included. Urine Culture Urogenital microbiota, susceptibilities not performed per laboratory criteria. 08/24/2024 8:11 AM CDT [facility] Urine (Urine, Midstream) 08/23/2024 9:34 AM CDT 08/23/2024 2:09 PM CDT Comment:Specimen Source Site : Urine Mario Maldonado M.D. LAB MICROBIOLOGY - GENERAL OR DERABLES Final Result Performing Organization Address City[facility] Co de Phone Number [facility] [place] [address], [place] [facility] [place] [address] [place] [address] * (ABNORMAL) Urinalysis, with Microscopic: Urine, Midstream (08/23/2024 9:34 AM CDT) Only the most recent of2 resultswithin the time period is included. Source Urine, Urine, Midstream 08/23/2024 9:47 AM CDT [facility] Clarity Clear Clear 08/23/2024 10:08 AM CDT [facility] Color Yellow 08/23/2024 10:08 AM CDT [facility] Comment: ----REFERENCE VALUE---- Colorless Yellow Erendira Blood Negative Negative 08/23/2024 10:08 AM CDT [facility] Nitrite Negative Negative 08/23/2024 10:08 AM CDT [facility] Leukocyte Esterase Small(A) Negative 08/23/2024 10:08 AM CDT [facility] Protein Trace mg/dL 08/23/2024 10:08 AM CDT [facility] Comment: ----REFERENCE VALUE---- Negative Trace Glucose >=1000(A) Negative mg/dL 08/23/2024 10:08 AM CDT [facility] Ketone Negative Negative mg/dL 08/23/2024 10:08 AM CDT [facility] Bilirubin Negative Negative 08/23/2024 10:08 AM CDT [facility] pH 5.5 5.0 - 8.0 08/23/2024 10:08 AM CDT [facility] Specific [place] 1.018 1.001 - 1.035 08/23/2024 10:08 AM CDT [facility] Urobilinogen 0.2 0.2 - 1.0 mg/dL 08/23/2024 10:08 AM CDT [facility] White Blood Cells 11-20(A) /hpf 08/23/2024 10:14 AM CDT [facility] Comment: ----REFERENCE VALUE---- Males: 0-3 Females: 0-10 Unknown: 0-10 Red Blood Cells Occ-2 0 - 2 /hpf 10:14 AM CDT [facility] Squamous Cells 4-10 /hpf 08/23/2024 10:14 AM CDT [facility] Urine (Urine, Midstream) 08/23/2024 9:34 AM CDT 08/23/2024 9:41 AM CDT us Mario Maldonado M.D. LAB URINE ORDERABLES Final Re sult [facility] [address] [place] [address], [facility] [place] [address] [place] [address] * DX Hip And Pelvis Left 2-3 Views (07/05/2024 8:23 AM TERMITE CONTROL TECHNICIAN) Anatomical Region Laterality Modality Lower Extremity, Pelvis, Hip , Musculoskeletal RST LOS, Musculoskeletal ARZ LOS, Muskuloskeletal FLA LOS Left Digit al Radiography Impressions 07/05/2024 8:28 AM TERMITE CONTROL TECHNICIAN Comparison 03/11/2022. Diffuse osseous demineralization limits evaluation for osseous lesions. Extensive vascular calcifications. Mild bilateral hip joint osteoarthritis. Left hip alignment normal. No acute fracture. Narrative 07/05/2024 8:28 AM TERMITE CONTROL TECHNICIAN EXAM: DX HIP AND PELVIS LEFT 2-3 VIEWS Procedure Note Zion Matthews M.D. - 07/05/2024 EXAM: DX HIP AND PELVIS LEFT 2-3 VIEWS IMPRESSION: Comparison 03/11/2022. Diffuse osseous demineralization limits evaluation for osseous lesions.Extensive vascular calcifications. Mild bilateral hip jointosteoarthritis. Left hip alignment normal. No acute fracture. Marlo Diallo M.D. IMG DIAGNOSTIC IMAGING PROCEDURE S Final Result * (ABNORMAL) Hemoglobin A1c (06/14/2024 7:45 AM TERMITE CONTROL TECHNICIAN) Hemoglobin A1c, B 6.1(H) 4.2 - 5.6 % 06/14/2024 9:02 AM TERMITE CONTROL TECHNICIAN [facility] Comment: Hemoglobin A1c values of 5.7-6.4 percent indicate an increased risk for developing diabetes mellitus. In diabetic patients, HbA1c goals should be discussed with healthcare provider. Blood (Blood, Venous) 06/14/2024 7:45 AM TERMITE CONTROL TECHNICIAN 06/14/2024 8:38 AM TERMITE CONTROL TECHNICIAN Elissa Luo P.A.-C., M.S. LAB BLOOD ADD-ON Final Result [facility] [address] [place] [address], [facility] OW[facility] [place] [address] [place] [address] * BI Breast Screening Bilateral with Tomosynthesis (06/02/2020 11:28 AM TERMITE CONTROL TECHNICIAN) Anatomical Region Laterality Modality Breast, Breast Imaging RST L OS, Breast Imaging ARZ LOS, Breast Imaging FLA LOS Bilateral Mammography 06/02/2020 12:0 4 PM TERMITE CONTROL TECHNICIAN Impressions 06/02/2020 12:07 PM TERMITE CONTROL TECHNICIAN Negative. RECOMMENDATION: Annual Screening Mammogram ASSESSMENT: BI-RADS: 1: Negative. Narrative 06/02/2020 12:07 PM TERMITE CONTROL TECHNICIAN EXAM: BI BREAST SCREENING BILATERAL WITH TOMOSYNTHESIS Current study was evaluated with a Computer Aided Detection (CAD) system. INDICATION: Screening mammogram. COMPARISON: Prior exam(s) were available and reviewed for comparison. DENSITY: c. The breast(s) are heterogeneously dense, which may obscure small masses. FINDINGS: No mammographic findings of malignancy. Procedure Note Jose Taylor M.D. - 06/02/2020 EXAM: BI BREAST SCREENING BILATERAL WITH TOMOSYNTHESIS Current study was evaluated with a Computer Aided Detection (CAD) system. INDICATION: Screening mammogram. COMPARISON: Prior exam(s) were available and reviewed for comparison. DENSITY: c. The breast(s) are heterogeneously dense, which may obscuresmall masses. FINDINGS: No mammographic findings of malignancy. IMPRESSION: Negative. RECOMMENDATION: Annual Screening Mammogram ASSESSMENT: BI-RADS: 1: Negative. Jenny Vaca M.D. [facility] BI PROCEDURES Final Res ult * COLONOSCOPY (09/27/2019 10:02 AM CDT) Narrative Procedure Note Dorota Jenkins M.D., Ph.D. - 09/27/2019 10:02 AM CDT [facility] Patient Name: Iva Goyal Procedure Date: 09/27/2019 10:02 AM Date of : 1945 Age: 74 Gender: Female Procedure: Colonoscopy Providers: Dorota Jenkins MD, ALMA Lomeli(Ordering Provider) Referring Provider: ALMA Lomeli Pre-op Diagnoses: High risk colon cancer surveillance: Personal history of colonic polyps unclear time frame oflast C-scope; Post-op Diagnoses: - Preparation of the colon was fair to poor. - Very challenging colonoscopy procedure due to restricted mobilityin rectosigmoid colon region. - Incomplete procedure. PCF colonoscopy switched to gastroscope and scope advanced to proximal ascending colon but not reached cecum. - Four 3 mm polyps in the rectum and at the recto-sigmoid colon,removed with a jumbo cold forceps. Resected and retrieved. - One 6 mm polyp in the distal ascending colon, removed with a cold snare. Resected and retrieved. - Severe diverticulosis in the recto-sigmoid colon, in the sigmoid colon, in the descending colon and in the transverse colon. - Semi-liquid to semi-formed stool in the entire examined colon. Recommendation: - Discharge patient to home (ambulatory). - Resume previous diet. - Hold Xarelto for 3 days (due to polypectomy) then resume. - Await pathology results. - Consider repeat colonoscopy due to incompleteness and poor prep of colonoscopy in next available within 3 months (and request to be doneby advanced endoscopist due to challenging colonoscopy) and also pending pathology results reviewed. - Return to referring physician as previously scheduled. Findings: The perianal and digital rectal examinations suggested moderately decrease of anal tone and short rectum in size/length. Four semi-sessile polyps were found in the rectum and recto-sigmoid colon. The polyps were 3 mm in size. These polyps were removed with a jumbo cold forceps. Resection and retrieval were complete. Estimated blood loss: none. A 6 mm polyp was found in the distal ascending colon. The polyp was semi-sessile. The polyp was removed with a cold snare. Resection and retrieval were complete. Estimated blood loss was minimal. Multiple diverticula were found in the recto-sigmoid colon, sigmoid colon, descending colon and transverse colon. Estimated blood loss:none. A large amount of liquid semi-liquid stool was found in the entire colon, precluding visualization. Lavage of the area was performedusing a large amount, resulting in incomplete clearance with fair visualization. Medicines: Monitored Anesthesia Care Complications: No immediate complications. Procedure Details: The patient was seen, evaluated, and history reviewed. Airway and heart and lung exams were performed and were satisfactory for plannedsedation care. The risks, benefits and alternatives for the procedure and sedation were discussed andinformed consent was obtained. A procedural pause was conducted in the presence of assisting personnelto verify the correct patient identity and procedureto be performed. Throughout the procedure, the patient's blood pressure, pulse, and oxygen saturations were monitored continuously. The Colonoscope was introduced under directvision through the anus with the intention of advancingto the cecum. The scope was advanced to theascending colon before the procedure was aborted.Medications were given. The colonoscopy was extremelydifficult due to poor bowel prep. Successful completion ofthe procedure was aided by applying abdominalpressure. The patient tolerated the procedure well. The quality of the bowel preparation was evaluatedusing the BBPS ([place] Bowel Preparation Scale) with scores of: Right Colon = 2 (minor amount ofresidual staining, small fragments of stool and/or opaque liquid, but mucosa seen well), Transverse Colon =2 (minor amount of residual staining, smallfragments of stool and/or opaque liquid, but mucosa seenwell) and Left Colon = 2 (minor amount of residual staining, small fragments of stool and/or opaque liquid, but mucosa seen well). The total BBPSscore equals 6. The quality of the bowel preparationwas fair. Sedation: See the other procedure note for documentation of moderate sedationwith intraservice time. Dorota Jenkins MD 09/27/2019 10:18:27 AM Number of Addenda: 0 Note Initiated On: 09/27/2019 10:02 AM [facility] Li., P.A., M.S. GI PROCE DURE ORDERABLES Edited Result - Final * OPHTHALMOLOGY IMAGE EXAM (11/16/2016 12:00 PM CDT) Anatomical Region Laterality Modality Other 11/16/2016 12:0 0 PM CDT Addenda Addendum by ProviderPhi M.D. on 11/16/2016 12:00 PM CDT OPH^^^OW Optical Coherence Tomography (OCT) 11/16/2016 12:00:00 [facility] [place] Provider IMG NON RAD IMAGING PROCEDUR ES Final Result * HCV Ab w/Reflex to HCV PCR, S (medicare) (10/16/2015 8:50 AM CDT) HXHCV Ab [facility] Negative Negative POWERCHART Comment: Tgovww-jn-mpzvzl ratio is <1.00. Test Performed by: [place] [id number] Blue Prints Trimmer: Darinel Lynn II, M.D., Ph.D. Blood 10/16/2015 8:50 AM CDT Jenny Vaca M.D. LAB MICROBIOLOGY - BLOOD OR DERABLES Final Result POWERCHART from Last 3 Months or Most Recently Relevant to Health Maintenance Insurance MEDICARE MEDICA Advance Directives For more information, please contact: [phone] Documents on File Type Date Recorded Patient Plater Production Expl anation Advance Directives 06/02/2016 12:00 AM L[place] cy document. See document viewer. Care Teams Music Industry Internship Relationship Specialty Start Date End Date Jenny Vaca M.D. [address] [facility] [place] [phone] PCP - General 11/11/16
--- OUTSIDE RECORDS SUMMARY | 2024-09-13 12:36 | XMS_ITS | Encounter Summary ---
Author Organization [facility] Address [address] [place] [address] Care Team Providers Care Criminal Research Specialist Name Role Phone Jenny Vaca M.D. Primary Care Provider [phone] Encounter Details Date Type Department Care Team (Latest Contact Info) Description 09/03/2024 12:10 PM CDT - 09/03/2024 11:59 PM CDT Hospital Encounter Department of Laboratory Medicine in [place], [place] [address], [place] [phone] Jenny Vaca M.D. [address] [place] [phone] Diabetes Mellitus Type 2 With Diabetic Neuropathy (HCC) Discharge Disposition: Home or Self Care Social History Tobacco Use Types Packs/Day Years Used Date Smoking Tobacco: Every Day Cigarettes 0.5 60 Passive Smoke Exposure: Current Smokeless Tobacco: Never Alcohol Use Standard Drinks/Week Comments Yes 1 (1 standard drink = 0.6 oz pur e alcohol) 1 beer per night [facility] Utilities Answer Date Recorded In the past 12 months has [employer], gas, oil, or water [employer] threatened to shut off services in your [...] week 09/27/2022 How often do you attend [facility] or quaker services? More than 4 times per year 09/27/2022 Do you belong to any clubs o r organizations such as adventist groups, unions, fraternal or athletic groups, or [...] Answer Date Recorded PHQ-2 Score 0 06/18/2024 [facility] of Occupat ional Health - Occupational Stress [...] your living situation today? I have a [facility] place to live 07/08/2023 Comments No Sex and Gender Information Value Date Recorded Sex Assigned at Not on file Legal Sex Female 8:27 AM ECHOCARDIOGRAPHY RADIOLOGY TECHNOLOGIST Gender Identity Female 04/06/2017 8:58 AM ECHOCARDIOGRAPHY RADIOLOGY TECHNOLOGIST Sexual Orientation Straight 04/06/2017 8: 58 AM ECHOCARDIOGRAPHY RADIOLOGY TECHNOLOGIST documented as of this encounter Medications at [...] 3 1 blood-glucose meter,continuous (FreeStyle [place] 3 [place]) 1 each (1 Device total) as directed. [...] under the skin. lancets (ACCU-CHEK SOFTCLIX LANCETS) mis Use to test 4 times daily Dx: [...] Glomerular Filtration Rate (GFR) 30 To 44 ([facility]) Take 1 tablet (25 mg total) by [...] tablet 3 5 06/22/19 26 propylene glycoL (Elizabeth Meibo Tears) 0.6 % ophthalmic solution Administer [...] inhaler Inhale 2 puffs daily. 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 30 tablet 3 4 09/13/19 25 documented as of this encounter Plan of Treatment Upcoming Encounters Date Type Department Care Team (Late st Contact Info) Description 09/14/2024 11:00 AM CDT Admin Visit Department of Oncology in [place], [place] [address] [place] [phone] 09/17/2024 8:00 AM CDT Lab Department of Infusion Therapy in [place], [place] [address] [place] [phone] Jenny Vaca M.D. [address] [place] [phone] 09/17/2024 1:30 PM CDT Office Visit Department of Internal Medicine in [place], [place] [address] [place] [phone] Elissa Luo P.A.-C., M.S. [address] [phone] 09/18/2024 8:00 AM CDT Clinical Support Department of Oncology in [place], [place] [address] [place] [phone] Blossom Hernandez, M.S.W., L.I.C.S.W. [address] [place] [phone] 09/20/2024 10:00 AM CDT Telemedicine Department of Oncology in [place], [place] [address] [place] [phone] Kerrie Vela M.B., B.Ch., M.D. [address] [place] [phone] 09/24/2024 8:30 AM CDT Lab Department of Oncology in [place], [place] [address] [place] [phone] Kerrie Vela M.B., B.Ch., M.D. [address] [place] [phone] 09/24/2024 9:40 AM CDT Office Visit Department of Oncology in [place], [place] [address] [place] [phone] Kerrie Vela M.B., BDuran, MPhuc [address] [place] [phone] 09/24/2024 10:20 AM CDT Education Department of Oncology in [place], [place] [address] [place] [phone] Kerrie Vela M.B., BDuran, M.DForeign [address] [place] [phone] 09/24/2024 11:30 AM CDT Appointment [facility], [facility], [facility] [address] [place] [phone] Kerrie Vela M.B., Trevor, M.DForeign [address] [place] [phone] 09/25/2024 8:30 AM CDT Appointment [facility], [facility], [facility] [address] [place] [phone] Kerrie Vela M.B., B.ChForeign, M.DForeign [address] [place] [phone] 09/26/2024 8:30 AM CDT Appointment [facility], [facility], [facility] [address] [place] [phone] Kerrie Veal M.B., B.ChForeign, M.DForeign [address] [place] [phone] 09/28/2024 11:45 AM CDT Lab Department of Oncology in [place], [place] [address] [place] [phone] Kerrie Vela M.B., BForeignChForeign, M.DForeign [address] [place] [phone] 09/28/2024 1:40 PM CDT Office Visit Department of Oncology in [place], [place] [address] [place] [phone] Dawood Ruiz P.A.-C. [address] [place] [phone] 10/01/2024 8:00 AM CDT Appointment [facility], [facility], [facility] [address] [place] [phone] Kerrie Vela M.B., B.ChForeign, M.DForeign [address] [place] [phone] 10/02/2024 8:00 AM CDT Appointment [facility], [facility], [facility] [address] [place] [phone] Kerrie Vela M.B., B.Ch., M.DForeign [address] [place] [phone] 10/03/2024 8:00 AM CDT Appointment [facility], [facility] [address] [place] [phone] Kerrie Vela M.B., B.Ch., M.D. [address] [place] [phone] 10/10/2024 6:30 AM CDT Lab Department of Oncology in [place], [place] [address] [place] [phone] Kerrie Vela M.B., B., M.DForeign [address] [place] [phone] 10/10/2024 8:20 AM CDT Office Visit Department of Oncology in [place], [place] [address] [place] [phone] Brittney Stuart M.D. [address] [place] [phone] 10/10/2024 12:30 PM CDT Infusion Department of Oncology in [place], [place] [address] [place] [phone] Kerrie Vela M.B., B.ChForeign, M.DForeign [address] [place] [phone] 10/12/2024 11:20 AM CDT Office Visit Department of Oncology in [place], [place] [address] [place] [phone] Kerrie Vela M.B., B., M.DForeign [address] [place] [phone] 10/17/2024 1:00 PM CDT Office Visit Department of Ophthalmology in [place], [place] [address] [place] [phone] Tomás Mcbride M.D. [address] [place] [phone] 10/23/2024 8:45 AM CDT Lab Department of Oncology in [place], [place] [address] [place] [phone] Kerrie Vela M.B., Trevor, MPhuc [address] [place] [phone] 10/23/2024 11:00 AM CDT Office Visit Department of Oncology in [place], [place] [address] [place] [phone] Kerrie Vela M.B., Trevor, MPhuc [address] [place] [phone] 10/23/2024 11:30 AM CDT Appointment Department of Radiology in [place], [place] [address] [place] [phone] Franny Dutta M.D. [address] [place] [phone] 10/24/2024 7:30 AM CDT Infusion Department of Oncology in [place], [place] [address] [place] [address] Kerrie Vela M.B., BDuran, MPhuc [address] [place] [phone] 10/24/2024 11:00 AM CDT Appointment Department of Radiation Oncology in [place], [place] [address] [place] [phone] Franny Dutta M.D. [address] [place] [phone] 10/25/2024 11:00 AM CDT Office Visit Department of Oncology in [place], [place] [address] [place] [phone] Kerrie Vela M.B., BDuran, MPhuc [address] [place] [phone] 11/06/2024 7:00 AM CDT Lab Department of Oncology in [place], [place] [address] [place] [phone] Kerrie Vela M.B., B.ChForeign, M.D. [address] [place] [phone] 11/06/2024 9:00 AM CDT Office Visit Department of Oncology in [place], [place] [address] [place] [address] Dawood Ruiz, P.A.-CForeign [address] [place] [phone] 11/06/2024 10:00 AM CDT Infusion Department of Oncology in [place], [place] [address] [place] [phone] Kerrie Vela M.B., B.ChForeign, M.D. [address] [place] [phone] 11/20/2024 6:30 AM CDT Lab Department of Laboratory Medicine and Pathology, [facility] in [place], [place] [address] [place] [phone] Kerrie Vela M.B., B.Ch., M.D. [address] [place] [phone] 11/20/2024 8:20 AM CDT Office Visit Department of Oncology in [place], [place] [address] [place] [phone] Dawood Ruiz P.A.-CForeign [address] [place] [phone] 11/20/2024 9:00 AM CDT Infusion Department of Oncology in [place], [place] [address] [place] [phone] Kerrie Vela M.B., Trevor, MPhuc [address] [place] [phone] 12/04/2024 8:30 AM CDT Lab Department of Laboratory Medicine and Pathology, [facility] in [place], [place] [address] [place] [phone] Kerrie Vela M.B., Trevor, M.Cecelia [address] [place] [phone] 12/04/2024 10:20 AM CDT Office Visit Department of Oncology in [place], [place] [address] [place] [phone] Kerrie Vela M.B., BDuran, MPhuc [address] [place] [phone] 12/04/2024 11:00 AM CDT Infusion Department of Oncology in [place], [place] [address] [place] [phone] Kerrie Vela M.B., BDuran, M.DFroeign [address] [place] [phone] documented as of this encounter Procedures Procedure Name Priority Date/Time Associated Diagnosis Comments ALBUMIN, RANDOM, U Routine 09/03/2024 12 :15 PM CDT Diabetes Mellitus Type 2 With Diabetic Neuropathy (HCC) documented in this encounter Results * (ABNORMAL) Albumin, Random, Urine (09/03/2024 12:15 PM CDT) Microalbumin 16.0 mg/L 09/03/2024 12:53 PM CDT OWAT Creatinine 62 mg/dL 09/03/2024 12:53 PM CDT [facility] Albumin/Creatinin e Ratio 26(H) <25 mg/g 09/03/2024 12:53 PM CDT [facility] Urine (Urine, Midstream) 09/03/2024 12:15 PM CDT 09/03/2024 12:22 PM CDT Jenny Vaca M.D. LAB URINE ORDERABLES Final Result [facility] [address], [place] [address], [facility] [place] [address] [place] [address] documented in this encounter Visit Diagnoses Diagnosis Diabetes Mellitus Type 2 With Diabetic Neuropathy (HCC) documented in this encounter Additional Health Concerns Assessment Noted Time PHQ-9 Depression Total Score: 0 07/04/19 24 9:20 AM ECHOCARDIOGRAPHY RADIOLOGY TECHNOLOGIST documented as of this encounter Care Teams Criminal Research Specialist Relationship Specialty Start Date End Date Jenny Vaca M.D. [address], [place] [phone] PCP - General 11/11/16 documented as of this encounter
--- OUTSIDE RECORDS SUMMARY | 2024-09-13 12:36 | XMS_ITS | Encounter Summary ---
Author Organization [facility] Address [address] [place] [address] Care Team Providers Care Burner Shaft Name Role Phone Jenny Vaca M.D. 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 [address] [place] [address] Phone: tel: fax: [facility] Region Referral ID Status Reason Start Date Expiration Date Visits Re quested Visits Authorized [id number] Closed 08/28/2024 11/28/2025 1 1 Encounter Details Date Type Department Care Team (Late st Contact Info) Description 09/03/2024 10:45 AM CDT Infusion Department of Infusion Therapy in [place], [place] [address] [place] [phone] Marlo Diallo M.D. 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); Secondary Malignant Neoplasm Brain (HCC); Secondary Malignant Neoplasm Lymph Node (HCC) Social History Tobacco Use Types Packs/Day Years Used Date Smoking Tobacco: Every Day Cigarettes 0.5 60 Passive Smoke Exposure: Current Smokeless Tobacco: Never Alcohol Use Standard Drinks/Week Comments Yes 1 (1 standard drink = 0.6 oz pur e alcohol) 1 beer per night [facility] Runaities Answer Date Recorded In the past 12 months has e [employer], gas, oil, or water [employer] threatened to shut off services in your [...] 09/27/2022 How often do you attend chur ch or evangelical services? More than 4 times per year 09/27/2022 Do you belong to any clubs o r organizations such as bahai groups, unions, fraternal or athletic groups, or [...] Answer Date Recorded PHQ-2 Score 0 06/18/2024 [facility] - [...] your living situation today? I have a [place] place to live 07/08/2023 Comments No Sex and Gender Information Value Date Recorded Sex Assigned at Not on file Legal Sex Female 8:27 AM REPAIR SUPERVISOR Gender Identity Female 04/06/2017 8:58 AM REPAIR SUPERVISOR Sexual Orientation Straight 04/06/2017 8: 58 AM REPAIR SUPERVISOR documented as of this encounter Progress Notes * Lennie Ayala RForeignN. - 09/03/2024 10:45 AM CDT Patient declines port access, requests having peripheral IV due to difficulty in mobility and fatigue and having to come back to IVT possibly for de accessing port after MRI. documented in this encounter Plan of Treatment Upcoming Encounters Date Type Department Care Team (Late st Contact Info) Description 09/14/2024 11:00 AM CDT Admin Visit Department of Oncology in [place], [place] [address] [place] [address] 09/17/2024 8:00 AM CDT Lab Department of Infusion Therapy in [place], [place] [address] [phone] Jenny Vaca M.D. [address] [phone] 09/17/2024 1:30 PM CDT Office Visit Department of Internal Medicine in [place], [place] [address] [phone] Elissa Luo P.A.-C., M.S. [address] [phone] 09/18/2024 8:00 AM CDT Clinical Support Department of Oncology in [place], [place] [address] [place] [phone] Blossom Hernandez M.S.[place]., L.I.C.S.W. [address] [place] [phone] 09/20/2024 10:00 AM CDT Telemedicine Department of Oncology in [place], [place] [address] [place] [phone] Kerrie Vela M.B., B.Ch., M.D. [address] [place] [phone] 09/24/2024 8:30 AM CDT Lab Department of Oncology in [place], [place] [address] [place] [phone] Kerrie Vela M.B., B.Ch., M.D. [address] [place] [phone] 09/24/2024 9:40 AM CDT Office Visit Department of Oncology in [address] [phone] Kerrie Vela M.B., B.Ch., M.D. [address] [place] [phone] 09/24/2024 10:20 AM CDT Education Department of Oncology in [address] [phone] Kerrie Vela M.B., B.Ch., M.D. [address] [place] [phone] 09/24/2024 11:30 AM CDT Appointment [facility] [address] [place] [phone] Kerrie Vela M.B., BDuran, M.DForeign [address] [place] [phone] 09/25/2024 8:30 AM CDT Appointment [facility] [place], [address] [address] Kerrie Vela M.B., Trevor, M.DForeign [address] [place] [phone] 09/26/2024 8:30 AM CDT Appointment [address] [address] Kerrie Vela M.B., BDuran, M.DForeign [address] [place] [phone] 09/28/2024 11:45 AM CDT Lab Department of Oncology in [address] [address] Kerrie Vela M.B., B.ChForeign, M.DForeign [address] [place] [phone] 09/28/2024 1:40 PM CDT Office Visit Department of Oncology in [place], [place] [address] [place] [phone] Dawood Ruiz P.A.-C. [address] [place] [phone] 10/01/2024 8:00 AM CDT Appointment [facility] [place], [address] [address] Kerrie Vela M.B., BDuran, M.DForeign [address] [place] [phone] 10/02/2024 8:00 AM CDT Appointment [facility], [address] [phone] Kerrie Vela M.B., Trevor, M.DForeign [address] [place] [phone] 10/03/2024 8:00 AM CDT Appointment [facility], [address] [phone] Kerrie Vela M.B., BDuran, M.DForeign [address] [place] [phone] 10/10/2024 6:30 AM CDT Lab Department of Oncology in [place], [place] [address] [place] [phone] Kerrie Vela M.B., B.ChForeign, M.DForeign [address] [place] [phone] 10/10/2024 8:20 AM CDT Office Visit Department of Oncology in [place], [place] [address] [place] [phone] Brittney Stuart M.D. [address] [place] [phone] 10/10/2024 12:30 PM CDT Infusion Department of Oncology in [place], [place] [address] [place] [phone] Kerrie Vela M.B., BDuran, M.DForeign [address] [place] [phone] 10/12/2024 11:20 AM CDT Office Visit Department of Oncology in [place], [place] [address] [place] [address] Kerrie Vela M.B., BDuran, M.DForeign [address] [place] [phone] 10/17/2024 1:00 PM CDT Office Visit Department of Ophthalmology in [place], [place] [address], [place] [phone] Tomás Mcbride M.D. [address] [place] [phone] 10/23/2024 8:45 AM CDT Lab Department of Oncology in [place], [place] [address] [place] [phone] Kerrie Vela M.B., B., M.DForeign [address] [place] [phone] 10/23/2024 11:00 AM CDT Office Visit Department of Oncology in [place], [place] [address] [place] [phone] Kerrie Vela M.B., B., M.DForeign [address] [place] [phone] 10/23/2024 11:30 AM CDT Appointment Department of Radiology in [place], [place] [address], [place] [address] Franny Dutta M.D. [address] [place] [phone] 10/24/2024 7:30 AM CDT Infusion Department of Oncology in [place], [place] [address] [place] [phone] Kerrie Vela M.B., BDuran, M.D. [address] [place] [phone] 10/24/2024 11:00 AM CDT Appointment Department of Radiation Oncology in [place], [place] [address] [place] [address] Franny Dutta M.D. [address] [place] [phone] 10/25/2024 11:00 AM CDT Office Visit Department of Oncology in [place], [place] [address] [place] [phone] Kerrie Vela M.B., B.ChForeign, M.D. [address] [place] [phone] 11/06/2024 7:00 AM CDT Lab Department of Oncology in [place], [place] [address] [place] [phone] Kerrie Vela M.B., B., M.D. [address] [place] [phone] 11/06/2024 9:00 AM CDT Office Visit Department of Oncology in [place], [place] [address] [place] [phone] Dawood Ruiz P.A.-C. [address] [place] [phone] 11/06/2024 10:00 AM CDT Infusion Department of Oncology in [place], [place] [address] [place] [phone] Kerrie Vela M.B., BDuran, M.DForeign [address] [place] [phone] 11/20/2024 6:30 AM CDT Lab Department of Laboratory Medicine and Pathology, [facility] in [place], [place] [address] [place] [phone] Kerrie Vela M.B., BDuran, M.DForeign [address] [place] [phone] 11/20/2024 8:20 AM CDT Office Visit Department of Oncology in [place], [place] [address] [place] [phone] Dawood Ruiz P.A.-C. [address] [place] [phone] 11/20/2024 9:00 AM CDT Infusion Department of Oncology in [place], [place] [address] [place] [phone] Kerrie Vela M.B., B.ChForeign, M.DForeign [address] [place] [phone] 12/04/2024 8:30 AM CDT Lab Department of Laboratory Medicine and Pathology, [facility] in [place], [place] [address] [place] [phone] Kerrie Vela M.B., B.ChForeign, M.D. [address] [place] [phone] 12/04/2024 10:20 AM CDT Office Visit Department of Oncology in [place], [place] [address] [place] [phone] Kerrie Vela M.B., Trevor, MPhuc [address] [place] [phone] 12/04/2024 11:00 AM CDT Infusion Department of Oncology in [place], [place] [address] [place] [address] Kerrie Vela M.B., Trevor, MPhuc [address] [place] [phone] documented as of this encounter Visit Diagnoses Diagnosis Cancer Lung Small Cell Personal History- Primary Quality Review Trainer Current Drug Therapy, 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 [address] [phone] PCP - General 11/11/16 documented as of this encounter
--- OUTSIDE RECORDS SUMMARY | 2024-09-13 12:36 | XMS_ITS | Encounter Summary ---
Author Organization [facility] Address [address] [place] [address] Care Team Providers Care Box Office Agent Name Role Phone Jenny Vaca M.D. Primary Care Provider [phone] Reason for Visit * Reason Onset Date Comments Hydration 09/05/2024 Encounter Details Date Type Department Care Team (Late st Contact Info) Description 09/05/2024 Clinical Communication Department of Oncology in [place], [place] [address] [place] [phone] Marlo Diallo M.D. [address] [place] [address] Hydration Social History Tobacco Use Types Packs/Day Years Used Date Smoking Tobacco: Every Day Cigarettes 0.5 60 Passive Smoke Exposure: Current Smokeless Tobacco: Never Alcohol Use Standard Drinks/Week Comments Yes 1 (1 standard drink = 0.6 oz pur e alcohol) 1 beer per night [facility] Utilities Answer Date Recorded In the past 12 months has e [employer], gas, oil, or water [employer] threatened to shut off services in your [...] How often do you attend chur or lutheran services? More than 4 times per year 09/27/2022 Do you belong to any clubs o r organizations such as hoahaoism groups, unions, fraternal or athletic groups, or [...] Answer Date Recorded PHQ-2 Score 0 06/18/2024 [facility] [...] your living situation today? 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 [address] [phone] 09/17/2024 1:30 PM CDT Office Visit Department of Internal Medicine in [place], [place] [address] [phone] Elissa Luo P.A.-C., M.S. [address] [phone] 09/18/2024 8:00 AM CDT Clinical Support Department of Oncology in [address] [phone] Blossom Hernandez M.S.W., L.I.C.S.W. [address] [place] [phone] 09/20/2024 10:00 AM CDT Telemedicine Department of Oncology in [address] [phone] Kerrie Vela M.B., B.Ch., M.D. [address] [place] [phone] 09/24/2024 8:30 AM CDT Lab Department of Oncology in [place], [place] [address] [place] [phone] Kerrie Vela M.B., B.Ch., M.D. [address] [place] [phone] 09/24/2024 9:40 AM CDT Office Visit Department of Oncology in [address] [phone] Kerrie Vela M.B., BDuran, MPhuc [address] [place] [phone] 09/24/2024 10:20 AM CDT Education Department of Oncology in [place], [place] [address] [place] [phone] Kerrie Vela M.B., Trevor, M.Cecelia [address] [place] [address] 09/24/2024 11:30 AM CDT Appointment [facility], [facility], [facility] [address] [place] [phone] Kerrie Vela M.B., Trevor, M.DForeign [address] [place] [phone] 09/25/2024 8:30 AM CDT Appointment [facility], [facility], [facility] [address] [place] [phone] Kerrie Vela M.B., Trevor, M.DForeign [address] [place] [phone] 09/26/2024 8:30 AM CDT Appointment [facility], [facility], [facility] [address] [place] [phone] Kerrie Vela M.B., Trevor, M.DForeign [address] [place] [phone] 09/28/2024 11:45 AM CDT Lab Department of Oncology in [place], [place] [address] [place] [phone] Kerrie Vela M.B., BForeignChForeign, M.DForeign [address] [place] [phone] 09/28/2024 1:40 PM CDT Office Visit Department of Oncology in [place], [place] [address] [place] [phone] Dawood Ruiz P.A.-C. [address] [place] [phone] 10/01/2024 8:00 AM CDT Appointment [facility], [facility], [address] [phone] Kerrie Vela M.B., BForeignChForeign, M.DForeign [address] [place] [phone] 10/02/2024 8:00 AM CDT Appointment [facility], [facility], [facility] [address] [place] [phone] Kerrie Vela M.B., BForeignChForeign, M.DForeign [address] [place] [phone] 10/03/2024 8:00 AM CDT Appointment [facility], [facility], [facility] [address] [place] [phone] Kerrie Vela M.B., B.ChForeign, M.DForeign [address] [place] [phone] 10/10/2024 6:30 AM CDT Lab Department of Oncology in [place], [place] [address] [place] [phone] Kerrie Vela M.B., B.ChForeign, M.DForeign [address] [place] [phone] 10/10/2024 8:20 AM CDT Office Visit Department of Oncology in [place], [place] [address] [place] [phone] Brittney Stuart M.D. [address] [place] [phone] 10/10/2024 12:30 PM CDT Infusion Department of Oncology in [place], [place] [address] [place] [phone] Kerrie Vela M.B., B.ChForeign, M.D. [address] [place] [phone] 10/12/2024 11:20 AM CDT Office Visit Department of Oncology in [place], [place] [address] [place] [phone] Kerrie Vela M.B., B.Ch., M.D. [address] [place] [phone] 10/17/2024 1:00 PM CDT Office Visit Department of Ophthalmology in [place], [place] [address] [place] [phone] Tomás Mcbride M.D. [address] [place] [phone] 10/23/2024 8:45 AM CDT Lab Department of Oncology in [place], [place] [address] [place] [phone] Kerrie Vela M.B., B.ChForeign, M.DForeign [address] [place] [phone] 10/23/2024 11:00 AM CDT Office Visit Department of Oncology in [place], [place] [address] [place] [phone] Kerrie Vela M.B., BDuran, M.DForeign [address] [place] [phone] 10/23/2024 11:30 AM CDT Appointment Department of Radiology in [place], [place] [address] [place] [address] Franny Dutta M.D. [address] [place] [phone] 10/24/2024 7:30 AM CDT Infusion Department of Oncology in [place], [place] [address] [place] [phone] Kerrie Vela M.B., BDuran, MForeignDForeign [address] [place] [phone] 10/24/2024 11:00 AM CDT Appointment Department of Radiation Oncology in [place], [place] [address] [place] [phone] Franny Dutta M.D. [address] [place] [phone] 10/25/2024 11:00 AM CDT Office Visit Department of Oncology in [place], [place] [address] [place] [phone] Kerrie Vela M.B., B., M.D. [address] [place] [phone] 11/06/2024 7:00 AM CDT Lab Department of Oncology in [place], [place] [address] [place] [phone] Kerrie Vela M.B., BDuran, M.DForeign [address] [place] [phone] 11/06/2024 9:00 AM CDT Office Visit Department of Oncology in [place], [place] [address] [place] [phone] Dawood Ruiz, P.A.-CForeign [address] [place] [phone] 11/06/2024 10:00 AM CDT Infusion Department of Oncology in [place], [place] [address] [place] [phone] Kerrie Vela M.B., BDuran, M.Cecelia [address] [place] [phone] 11/20/2024 6:30 AM CDT Lab Department of Laboratory Medicine and Pathology, [facility] in [place], [place] [address] [place] [phone] Kerrie Vela M.B., B., M.DForeign [address] [place] [phone] 11/20/2024 8:20 AM CDT Office Visit Department of Oncology in [place], [place] [address] [place] [phone] Dawood Ruiz, P.A.-CForeign [address] [place] [phone] 11/20/2024 9:00 AM CDT Infusion Department of Oncology in [place], [place] [address] [place] [phone] Kerrie Vela M.B., B.ChForeign, M.D. [address] [place] [phone] 12/04/2024 8:30 AM CDT Lab Department of Laboratory Medicine and Pathology, [facility], in [place], [place] [address] [place] [address] Kerrie Vela M.B., B.ChForeign, M.DForeign [address] [place] [phone] 12/04/2024 10:20 AM CDT Office Visit Department of Oncology in [place], [place] [address] [place] [phone] Kerrie Vela M.B., BDuran, M.DForeign [address] [place] [phone] 12/04/2024 11:00 AM CDT Infusion Department of Oncology in [place], [place] [address] [place] [address] Kerrie Vela M.B., B.ChForeign, M.DForeign [address] [place] [phone] documented as of this encounter Visit Diagnoses Not on filedocumented in this encounter Additional Health Concerns Assessment Noted Time PHQ-9 Depression Total Score: 0 07/04/19 24 9:20 AM FINANCIAL SALES MANAGER documented as of this encounter Care Teams Box Office Agent Relationship Specialty Start Date End Date Jenny Vaca M.D. [address] [place] [phone] PCP - General 11/11/16 documented as of this encounter
--- OUTSIDE RECORDS SUMMARY | 2024-09-13 12:36 | XMS_ITS | Encounter Summary ---
Author Organization [facility] Address [address] [place] [id number] Care Team Providers Care Conveyor Man Name Role Phone Jenny Vaca M.D. Primary Care Provider [phone] Reason for Referral * Outpatient (Routine) - Authorized Specialty Diagnoses / Procedures Referred By Contac t Referred To Contact Hematology Oncology Kerrie Vela M.B., Trevor, MPhuc [address] [place] [phone] Phone: tel: fax: [facility] Referral ID Status Reason Start Date Expiration Date V isits Requested Visits Authorized [id number] Authorized 09/12/2024 03/14/2026 1 1 * Outpatient (Routine) - Authorized Specialty Diagnoses / Procedures Referred By Contac t Referred To Contact Hematology Oncology Kerrie Vela M.B., Trevor, MPhuc [address] [place] [phone] Phone: tel: fax: [facility] Referral ID Status Reason Start Date Expiration Date V isits Requested Visits Authorized [id number] Authorized 09/12/2024 03/14/2026 1 1 * Outpatient (Routine) - Authorized Specialty Diagnoses / Procedures Referred By Contac t Referred To Contact Hematology Oncology Kerrie Vela M.B., Trevor, Alin [address] [place] [phone] Phone: tel: fax: [facility] Referral ID Status Reason Start Date Expiration Date V isits Requested Visits Authorized [id number] Authorized 09/12/2024 03/14/2026 1 1 * Outpatient (Routine) - Authorized Specialty Diagnoses / Procedures Referred By Contac t Referred To Contact Hematology Oncology Kerrie Vela M.B., Alin Murray [address] [place] [phone] Phone: tel: fax: [facility] Referral ID Status Reason Start Date Expiration Date V isits Requested Visits Authorized [id number] Authorized 09/12/2024 03/14/2026 1 1 * Outpatient (Routine) - Authorized Specialty Diagnoses / Procedures Referred By Contac t Referred To Contact Hematology Oncology Kerrie Vela M.B., Alin Murray [address] [place] [phone] Phone: tel: fax: [facility] Referral ID Status Reason Start Date Expiration Date V isits Requested Visits Authorized [id number] Authorized 09/12/2024 03/14/2026 1 1 * Outpatient (Routine) - Authorized Specialty Diagnoses / Procedures Referred By Contac t Referred To Contact Hematology Oncology Kerrie Vela M.B., Trevor, Alin [address] [place] [phone] Phone: tel: fax: [facility] Referral ID Status Reason Start Date Expiration Date V isits Requested Visits Authorized [id number] Authorized 09/12/2024 03/14/2026 1 1 * Outpatient (Routine) - Authorized Specialty Diagnoses / Procedures Referred By Contac t Referred To Contact Social Work Diagnoses 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) Kerrie Vela M.B., Alin Murray [address] [place] [phone] Phone: tel: fax: [facility] Referral ID Status Reason Start Date Expiration Date V isits Requested Visits Authorized [id number] Authorized 09/12/2024 03/14/2026 1 1 * Outpatient (Routine) - Authorized Specialty Diagnoses / Procedures Referred By Contac t Referred To Contact Oncology Kerrie Vela M.B., Trevor, Alin [address] [place] [phone] Phone: tel: fax: [facility] Referral ID Status Reason Start Date Expiration Date V isits Requested Visits Authorized [id number] Authorized 09/12/2024 03/14/2026 1 1 * Outpatient (Routine) - Authorized Specialty Diagnoses / Procedures Referred By Contac t Referred To Contact Oncology Kerrie Vela M.B., Alin Murray [address] [place] [phone] Phone: tel: fax: [facility] Referral ID Status Reason Start Date Expiration Date V isits Requested Visits Authorized [id number] Authorized 09/12/2024 03/14/2026 1 1 * Outpatient (Routine) - Authorized Specialty Diagnoses / Procedures Referred By Contac t Referred To Contact Oncology Kerrie Vela M.B., Alin Murray [address] [place] [phone] Phone: tel: fax: [facility] Referral ID Status Reason Start Date Expiration Date V isits Requested Visits Authorized [id number] Authorized 09/12/2024 03/14/2026 1 1 Reason for Visit * Reason Onset Date Comments Tarlatamab Coordination 09/03/2024 Encounter Details Date Type Department Care Team (Latest Contact Info) Description 09/03/2024 Patient Outreach Department of Oncology in [place], [place] [address] [place] [phone] Alek Gaytan M.S.N., R.N., C.M.S.R.N. [address] [place] [phone] Tarlatamab Coordination Social History Tobacco Use Types Packs/Day Years Used Date Smoking Tobacco: Every Day Cigarettes 0.5 60 Passive Smoke Exposure: Current Smokeless Tobacco: Never Alcohol Use Standard Drinks/Week Comments Yes 1 (1 standard drink = 0.6 oz pur e alcohol) 1 beer per night [facility] Utilities Answer Date Recorded In the past 12 months has th e electric, gas, oil, or water company threatened to [...] week 09/27/2022 How often [facility] you attend [facility] services? More than 4 times per year 09/27/2022 Do you belong to any clubs o r organizations such as adventism groups, unions, fraternal or athletic groups, or [...] Answer Date Recorded PHQ-2 Score 0 06/18/2024 [facility] - Occupational Stress Questionnaire Answer Date Recorded [...] your living situation today? I have a [facility] place to live 07/08/2023 Comments No Sex and Gender Information Value Date Recorded Sex Assigned at Not on file Legal Sex Female 8:27 AM IN HOME CAREGIVER Gender Identity Female 04/06/2017 8:58 AM IN HOME CAREGIVER Sexual Orientation Straight 04/06/2017 8: 58 AM IN HOME CAREGIVER documented as of this encounter Miscellaneous Notes * Addendum Note - Alek Gaytan M.S.N., R.Luciano., C.M.S.R.N. - 09/12/2024 4:40 PM CDTAddended by: ALEK GAYTAN on: 09/12/2024 04:40 PM Modules accepted: Orders documented in this encounter Plan of Treatment Upcoming Encounters Date Type Department Care Team (Late st Contact Info) Description 09/14/2024 11:00 AM CDT Admin Visit Department of Oncology in [place], [place] [address] [place] [phone] 09/17/2024 8:00 AM CDT Lab Department of Infusion Therapy in [place], [place] [address] [phone] Jenny Vaca M.D. [address] [phone] 09/17/2024 1:30 PM CDT Office Visit Department of Internal Medicine in [place], [place] [address] [phone] Elissa Luo, Jaime-Hesham., M.S. [address] [phone] 09/18/2024 8:00 AM CDT Clinical Support Department of Oncology in [place], [place] [address] [place] [phone] Blossom Hernandez, M.S.W., L.I.C.S.W. [address] [place] [phone] 09/20/2024 10:00 AM CDT Telemedicine Department of Oncology in [place], [place] [address] [place] [phone] Kerrie Vela M.B., Trevor, MPhuc [address] [place] [phone] 09/24/2024 8:30 AM CDT Lab Department of Oncology in [place], [place] [address] [place] [phone] Kerrie Vela M.B., Trevor, M.D. [address] [place] [phone] 09/24/2024 9:40 AM CDT Office Visit Department of Oncology in [place], [place] [address] [place] [phone] Kerrie Vela M.B., Trevor, M.DForeign [address] [place] [phone] 09/24/2024 10:20 AM CDT Education Department of Oncology in [place], [place] [address] [place] [phone] Kerrie Vela M.B., BDuran, M.DForeign [address] [place] [phone] 09/24/2024 11:30 AM CDT Appointment [facility], [facility], [facility] [address] [place] [phone] Kerrie Vela M.B., BDuran, M.DForeign [address] [place] [phone] 09/25/2024 8:30 AM CDT Appointment [facility], [facility], [address] [phone] Kerrie Vela M.B., BDuran, MForeignDForeign [address] [place] [phone] 09/26/2024 8:30 AM CDT Appointment [facility], [facility], [address] [phone] Kerrie Vela M.B., Trevor, M.DForeign [address] [place] [phone] 09/28/2024 11:45 AM CDT Lab Department of Oncology in [place], [place] [address] [place] [phone] Kerrie Vela M.B., B.ChForeign, M.DForeign [address] [place] [phone] 09/28/2024 1:40 PM CDT Office Visit Department of Oncology in [place], [place] [address] [place] [phone] Dawood Ruiz P.A.-C. [address] [place] [phone] 10/01/2024 8:00 AM CDT Appointment [facility], [facility], [address] [phone] Kerrie Vela M.B., B.ChForeign, M.DForeign [address] [place] [phone] 10/02/2024 8:00 AM CDT Appointment [facility], [facility], [address] [phone] Kerrie Vela M.B., BDuran, MPhuc [address] [place] [phone] 10/03/2024 8:00 AM CDT Appointment [facility], [facility], [facility], [facility] [address] [place] [phone] Kerrie Vela M.B., BDuran, M.Cecelia [address] [place] [phone] 10/10/2024 6:30 AM CDT Lab Department of Oncology in [place], [place] [address] [place] [phone] Kerrie Vela M.B., B.ChForeign, M.DForeign [address] [place] [phone] 10/10/2024 8:20 AM CDT Office Visit Department of Oncology in [place], [place] [address] [place] [phone] Brittney Stuart M.D. [address] [place] [phone] 10/10/2024 12:30 PM CDT Infusion Department of Oncology in [place], [place] [address] [place] [phone] Kerrie Vela M.B., B.ChForeign, M.DForeign [address] [place] [phone] 10/12/2024 11:20 AM CDT Office Visit Department of Oncology in [place], [place] [address] [place] [phone] Kerrie Vela M.B., B.Ch., MPhuc [address] [place] [phone] 10/17/2024 1:00 PM CDT Office Visit Department of Ophthalmology in [place], [place] [address] [place] [phone] Tomás Mcbride M.D. [address] [place] [phone] 10/23/2024 8:45 AM CDT Lab Department of Oncology in [place], [place] [address] [place] [phone] Kerrie Vela M.B., BDuran, MPhuc [address] [place] [phone] 10/23/2024 11:00 AM CDT Office Visit Department of Oncology in [place], [place] [address] [place] [phone] Kerrie Vela M.B., B.ChForeign, M.DForeign [address] [place] [phone] 10/23/2024 11:30 AM CDT Appointment Department of Radiology in [place], [place] [address] [place] [phone] Franny Dutta M.D. [address] [place] [phone] 10/24/2024 7:30 AM CDT Infusion Department of Oncology in [place], [place] [address] [place] [phone] Kerrie Vela M.B., B.ChForeign, M.DForeign [address] [place] [phone] 10/24/2024 11:00 AM CDT Appointment Department of Radiation Oncology in [place], [place] [address] [place] [phone] Franny Dutta M.D. [address] [place] [phone] 10/25/2024 11:00 AM CDT Office Visit Department of Oncology in [place], [place] [address] [place] [phone] Kerrie Vela M.B., B.ChForeign, M.DForeign [address] [place] [phone] 11/06/2024 7:00 AM CDT Lab Department of Oncology in [place], [place] [address] [place] [phone] Kerrie Vela M.B., B.ChForeign, M.D. [address] [place] [phone] 11/06/2024 9:00 AM CDT Office Visit Department of Oncology in [place], [place] [address] [place] [phone] Dawood Ruiz P.A.-C. [address] [place] [phone] 11/06/2024 10:00 AM CDT Infusion Department of Oncology in [place], [place] [address] [place] [phone] Kerrie Vela M.B., B.Ch., M.D. [address] [place] [phone] 11/20/2024 6:30 AM CDT Lab Department of Laboratory Medicine and Pathology, [facility], in [place], [place] [address] [place] [phone] Kerrie Vela M.B., BDuran, M.DForeign [address] [place] [phone] 11/20/2024 8:20 AM CDT Office Visit Department of Oncology in [place], [place] [address] [place] [phone] Dawood Ruiz P.A.-C. [address] [place] [phone] 11/20/2024 9:00 AM CDT Infusion Department of Oncology in [address] [phone] Kerrie Vela M.B., BDuran, M.DForeign [address] [place] [phone] 12/04/2024 8:30 AM CDT Lab Department of Laboratory Medicine and Pathology, [facility] in [place], [place] [address] [place] [phone] Kerrie Vela M.B., B.ChForeign, M.DForeign [address] [place] [phone] 12/04/2024 10:20 AM CDT Office Visit Department of Oncology in [address] [phone] Kerrie Vela M.B., B.ChForeign, M.D. [address] [place] [phone] 12/04/2024 11:00 AM CDT Infusion Department of Oncology in [address] [phone] Kerrie Vela M.B., Alin Murray [address] [place] [phone] Scheduled Referrals Name Type Priority Associated Diagnoses Order Schedule Oncology office visit (clinic) Outpatient Referral Routine 1 Occurrence s starting 09/12/2024 until 12/12/2025 Oncology office visit (clinic) Outpatient Referral Routine 1 Occurrence s starting 09/12/2024 until 12/12/2025 Oncology office visit (clinic) Outpatient Referral Routine 1 Occurrence s starting 09/12/2024 until 12/12/2025 Social Work - General consult (clinic) Outpatient Referral Routine 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) 1 Occurrences starting 09/12/2024 until 12/12/2025 Hematology office visit (clinic) [facility]; General; General Outpatient Referral Routine 1 Occurrenc es starting 09/12/2024 until 12/12/2025 Hematology office visit (clinic) [facility]; General; General Outpatient Referral Routine 1 Occurrenc es starting 09/12/2024 until 12/12/2025 Hematology office visit (clinic) [facility]; General; General Outpatient Referral Routine 1 Occurrenc es starting 09/12/2024 until 12/12/2025 Hematology office visit (clinic) [facility]; General; General Outpatient Referral Routine 1 Occurrenc es starting 09/12/2024 until 12/12/2025 Hematology office visit (clinic) [facility]; General; General Outpatient Referral Routine 1 Occurrenc es starting 09/12/2024 until 12/12/2025 Hematology office visit (clinic) [facility]; General; General Outpatient Referral Routine 1 Occurrenc es starting 09/12/2024 until 12/12/2025 documented as of this encounter Visit Diagnoses Diagnosis 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 [address] [place] [phone] PCP - General 11/11/16 documented as of this encounter
--- OUTSIDE RECORDS SUMMARY | 2024-09-13 12:37 | XMS_ITS | Encounter Summary ---
Author Organization [facility] Address [address] [place] [address] Care Team Providers Care Grip Wrapper Name Role Phone Jenny Vaca M.D. Primary Care Provider [phone] Encounter Details Date Type Department Care Team (Late st Contact Info) Description 11/05/2009 Historical Ophthalmology [facility] Maria Eugenia Cifuentes M.D. [address] [place] [address] Social History Tobacco Use Types Packs/Day Years Used Date Smoking Tobacco: Never Assessed Comments Unknown Sex and Gender Information Value Date Recorded Sex Assigned at Not on file Legal Sex Female 8:27 AM SYSTEMS ADMIN Gender Identity Female 04/06/2017 8:58 AM SYSTEMS ADMIN Sexual Orientation Straight 04/06/2017 8: 58 AM SYSTEMS ADMIN documented as of this encounter Progress Notes * Maria Eugenia Cifuentes M.D. - 11/05/2009 7:41 AM CDT Eye General CHIEF COMPLAINT Follow up, blurred vision for 6 months, pars plana vitrectomy. Internal limiting membrane peel. Endolaser, left eye done in May 2009. HISTORY OF PRESENT ILLNESS This is a 64 year old female here for a follow up. She has history of PDR both eyes, CME both eyes,ERM left eye, Intravitreal/ Intraretinal hemorrhages, right eye and vitreous hemorrhage left eye; blurred vision; both eyes; x 6 months; constantly; symptoms are moderate; floaters alone; left eye; x6 months; on and off. Denies flashes of light. 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 Last avastin shot left eye 05/2009 Rubeosis left eye noted as recently as May 2009 #3 Cataract right eye will see Dr. Mcclellan when ready to have surgery. #4 Pseudophakia left eye #5 s/p membrane peel left eye #6 Intravitreal/ Intraretinal hemorrhages, right eye had NVD, despite maximal PRP s/p avastin injection, right eye 12/04: NVD resolved s/p PPVx Rt 05/06 #7 vitreous hemorrhage left eye - resolved started 04/16/09 OCT 11/05 RE: trace edema temporally, not in fovea LE: trace edema nasally, not in fovea 1109 FA results: right eye: no NV; PRP left eye: NVD superiorly; mild vitreous heme; CME; large area of capillary nonperfusion temporally;PRP Plan: Rubeosis controlled; not in angle; some ghost vessels. Observe. FU 2 months with OCT both. may proceed with cataract surgery RE. 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 #3 Cataract right eye #4 Pseudophakia left eye #5 s/p membrane peel left eye #6 Intravitreal/ Intraretinal hemorrhages, right eye #7 vitreous hemorrhage left eye - resolved CDM Reports - EYEGEN Id: [id number] Status: Fnl documented in this encounter Plan of Treatment Upcoming Encounters Date Type Department Care Team (Late st Contact Info) Description 09/14/2024 11:00 AM CDT Admin Visit Department of Oncology in [place], [place] [address] [place] [phone] 09/17/2024 8:00 AM CDT Lab Department of Infusion Therapy in [place], [place] [address] [phone] Jenny Vaca M.D. [address] [phone] 09/17/2024 1:30 PM CDT Office Visit Department of Internal Medicine in [place], [place] [address] [phone] Elissa Luo P.A.-C., M.S. [address] [address] 09/18/2024 8:00 AM CDT Clinical Support Department of Oncology in [place], [place] [address] [place] [phone] Blossom Hernandez, M.S.W., L.I.C.S.W. [address] [place] [phone] 09/20/2024 10:00 AM CDT Telemedicine Department of Oncology in [place], [place] [address] [place] [phone] Kerrie Vela M.B., B.Ch., M.D. [address] [place] [phone] 09/24/2024 8:30 AM CDT Lab Department of Oncology in [place], [place] [address] [place] [phone] Kerrie Vela M.B., B.Ch., MForeignDForeign [address] [place] [phone] 09/24/2024 9:40 AM CDT Office Visit Department of Oncology in [place], [place] [address] [place] [phone] Kerrie Vela M.B., BDuran, M.DForeign [address] [place] [phone] 09/24/2024 10:20 AM CDT Education Department of Oncology in [place], [place] [address] [place] [phone] Kerrie Vela M.B., BDuran, MForeignDForeign [address] [place] [phone] 09/24/2024 11:30 AM CDT Appointment [facility], [facility], [facility] [address] [place] [phone] Kerrie Vela M.B., B.ChForeign, M.DForeign [address] [place] [phone] 09/25/2024 8:30 AM CDT Appointment [facility], [facility], [facility] [address] [place] [phone] Kerrie Vela M.B., B.ChForeign, M.D. [address] [place] [phone] 09/26/2024 8:30 AM CDT Appointment [facility], [facility], [facility] [address] [place] [phone] Kerrie Vela M.B., B.Ch., MPhuc [address] [place] [phone] 09/28/2024 11:45 AM CDT Lab Department of Oncology in [place], [place] [address] [place] [phone] Kerrie Vela M.B., BDuran, MPhuc [address] [place] [phone] 09/28/2024 1:40 PM CDT Office Visit Department of Oncology in [place], [place] [address] [place] [phone] Dawood Ruiz P.A.-C. [address] [place] [phone] 10/01/2024 8:00 AM CDT Appointment [facility], [facility] [address] [place] [phone] Kerrie Vela M.B., B., M.DForeign [address] [place] [phone] 10/02/2024 8:00 AM CDT Appointment [facility], [facility] [address] [place] [phone] Kerrie Vela M.B., BDuran, M.DForeign [address] [place] [phone] 10/03/2024 8:00 AM CDT Appointment [facility], [facility], [facility] [address] [place] [phone] Kerrie Vela M.B.Trevor, M.DForeign [address] [place] [phone] 10/10/2024 6:30 AM CDT Lab Department of Oncology in [place], [place] [address] [place] [phone] Kerrie Vela M.B., B., M.DForeign [address] [place] [phone] 10/10/2024 8:20 AM CDT Office Visit Department of Oncology in [place], [place] [address] [place] [phone] Brittney Stuart M.D. [address] [place] [phone] 10/10/2024 12:30 PM CDT Infusion Department of Oncology in [place], [place] [address] [place] [phone] Kerrie Vela M.B., B., M.D. [address] [place] [phone] 10/12/2024 11:20 AM CDT Office Visit Department of Oncology in [place], [place] [address] [place] [phone] Kerrie Vela M.B., B., M.DForeign [address] [place] [phone] 10/17/2024 1:00 PM CDT Office Visit Department of Ophthalmology in [place], [place] [address] [place] [address] Tomás Mcbride M.D. [address] [place] [address] 10/23/2024 8:45 AM CDT Lab Department of Oncology in [place], [place] [address] [place] [phone] Kerrie Vela M.B., Trevor, MPhuc [address] [place] [phone] 10/23/2024 11:00 AM CDT Office Visit Department of Oncology in [place], [place] [address] [place] [phone] Kerrie Vela M.B., Trevor, MPhuc [address] [place] [phone] 10/23/2024 11:30 AM CDT Appointment Department of Radiology in [place], [place] [address] [place] [phone] Franny Dutta M.D. [address] [place] [phone] 10/24/2024 7:30 AM CDT Infusion Department of Oncology in [place], [place] [address] [place] [phone] Kerrie Vela M.B., BDuran, M.DForeign [address] [place] [phone] 10/24/2024 11:00 AM CDT Appointment Department of Radiation Oncology in [place], [place] [address] [place] [phone] Franny Dutta M.D. [address] [place] [phone] 10/25/2024 11:00 AM CDT Office Visit Department of Oncology in [place], [place] [address] [place] [phone] Kerrie Vela M.B., BDuran, M.Cecelia [address] [place] [phone] 11/06/2024 7:00 AM CDT Lab Department of Oncology in [place], [place] [address] [place] [address] Kerrie Vela M.B., BDuran, M.DForeign [address] [place] [phone] 11/06/2024 9:00 AM CDT Office Visit Department of Oncology in [place], [place] [address] [place] [address] Dawood Ruiz, P.A.-CForeign [address] [place] [phone] 11/06/2024 10:00 AM CDT Infusion Department of Oncology in [place], [place] [address] [place] [address] Kerrie Vela M.B., B., M.DForeign [address] [place] [phone] 11/20/2024 6:30 AM CDT Lab Department of Laboratory Medicine and Pathology, [facility], in [place], [place] [address] [place] [address] Kerrie Vela M.B., BDuran, M.DForeign [address] [place] [phone] 11/20/2024 8:20 AM CDT Office Visit Department of Oncology in [place], [place] [address] [place] [address] Dawood Ruiz, P.A.-CForeign [address] [place] [phone] 11/20/2024 9:00 AM CDT Infusion Department of Oncology in [place], [place] [address] [place] [phone] Kerrie Vela M.B., B.Ch., M.D. [address] [place] [phone] 12/04/2024 8:30 AM CDT Lab Department of Laboratory Medicine and Pathology, [facility], in [place], [place] [address] [place] [phone] Kerrie Vela M.B., B.Ch., M.D. [address] [place] [phone] 12/04/2024 10:20 AM CDT Office Visit Department of Oncology in [place], [place] [address] [place] [phone] Kerrie Vela M.B., B.Ch., M.D. [address] [place] [phone] 12/04/2024 11:00 AM CDT Infusion Department of Oncology in [address] [phone] Kerrie Vela M.B., B.Ch., M.D. [address] [place] [phone] documented as of this encounter Visit Diagnoses Not on filedocumented in this encounter Additional Health Concerns Infection Onset Date Last Indicated Resolved Time COVID19 Pending 09/25/2019 09/25/2019 09/26/2019 1 :51 AM CDT COVID19 Pending 11/08/2019 11/08/2019 11/09/2019 1 :40 AM CDT COVID19 Pending 12/20/2019 12/20/2019 12/21/2019 1 1:51 AM CDT Protective Environment 02/21/2023 02/21/202305/08 5:44 AM SYSTEMS ADMIN Protective Environment 05/11/2023 05/11/202306/13 6:17 AM SYSTEMS ADMIN Protective Environment 06/27/2023 06/27/202310/15 5:30 AM CDT Protective Environment 10/28/2023 10/28/202306/25 5:58 AM SYSTEMS ADMIN Protective Environment 07/05/2024 07/05/202409/02 6:26 AM CDT documented as of this encounter Care Teams Grip Wrapper Relationship Specialty Start Date End Date Jenny Vaca M.D. [address] [place] [address] PCP - General 11/11/16 documented as of this encounter
--- OUTSIDE RECORDS SUMMARY | 2024-09-13 12:37 | XMS_ITS | Encounter Summary ---
Author Organization [facility] Address [address] [place] [address] Care Team Providers Care Mcat Instructor Name Role Phone Jenny Vaca M.D. Primary Care Provider [phone] Reason for Referral * Outpatient (Routine) - Closed Specialty Diagnoses / Procedures Referred By Cynthia eagle Referred To Contact Radiation Oncology Kay Thayer P.A.-C., M.SForeign [address] [place] [phone] Phone: tel: fax: Franny Dutta M.D. [address] [place] [phone] Phone: tel: fax: Referral ID Status Reason Start Date Expiration Date Visits Re quested Visits Authorized [id number] Closed 07/31/2024 01/30/2026 1 1 Scheduling Instructions PET-CT and MRI brain prior at [facility] Reason for Visit * Outpatient (Routine) - Closed Specialty Diagnoses / Procedures Referred By Contac t Referred To Contact Radiation Oncology Kay Thayer P.A.-C., M.S. 200 [place] [address] Phone: tel: fax: Franny Dutta M.D. 200 [place] [address] Phone: tel: fax: Referral ID Status Reason Start Date Expiration Date Visits Re quested Visits Authorized [id number] Closed 07/31/2024 01/30/2026 1 1 Encounter Details Date Type Department Care Team (Latest Contact Info) Description 09/05/2024 10:52 AM CDT - 09/05/2024 11:20 AM CDT Hospital Encounter Department of Radiation Oncology in [place], [place] [address] [place] [address] Franny Dutta M.D. 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 More than 4 times per year 09/27/2022 Do you belong to any clubs o r organizations such as uatsdin groups, unions, fraternal or athletic groups, or [...] your living situation today? [facility] to live 07/08/2023 Comments No Sex and Gender Information Value Date Recorded Sex Assigned at Not on file Legal Sex Female 8:27 AM RABBIT BREEDER Gender Identity Female 04/06/2017 8:58 AM RABBIT BREEDER Sexual Orientation Straight 04/06/2017 8: 58 AM RABBIT BREEDER documented as of this encounter Last Filed Vital Signs Vital Sign Reading Time Taken Comments Blood Pressure 103/59 09/05/2024 10:57 AM CDT Pulse 75 09/05/2024 10:57 AM CDT Temperature 36.1 C (97 F) 09/05/2024 10:57 AM CDT Respiratory Rate - - Oxygen Saturation - - Inhaled Oxygen Concentration - - Weight 57.7 kg (127 lb 3.3 oz) 09/05/2024 10:57 AM CDT Height - - Body Mass Index 21.19 06/22/2024 10:59 AM RABBIT BREEDER documented in this encounter Medications at Time of Discharge [...] 3 1 blood-glucose meter,continuous (FreeStyle [place] 3 [place]) 1 each (1 Device total) as directed. 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 30 tablet 3 4 09/13/19 25 documented as of this encounter Progress Notes * Franny Dutta M.D. - 09/05/2024 11:00 AM CDT RADIATION ONCOLOGY FOLLOW-UP NOTE SUBJECTIVE REFERRAL SOURCE Established patient DIAGNOSIS 1. Small cell lung cancer, metastatic to brain CHIEF COMPLAINT/REASON FOR VISIT Mrs. 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 She completed radiation therapy to the brain metastasis on June 20, 2024. When we sawher in early July, she had a new lesion in the left superior cerebellum with resolution of the left olfactory gyrus lesion. She returns now after a new brain MRI and re-staging. 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 with a 7 week history of [...] represent an infectious or inflammatorycolitis. 12/21/2023 - 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 Lurbinectedin Start Date: 12/21/2023 12/22/2023 Critical [...] who recommended referral to Radiation Oncology in [place]. Plan to continue lurbinectedin every 3 weeks. [...] superior cerebellum. Study performed for treatment planning. 09/10/2024 - Radiation Therapy Radiation Therapy Treatment Details (Noted on 07/31/2024) Site: Left Brain Technique: No technique specified Goal: Curative Planned Treatment Start Date: 09/10/2024 INTERVAL HISTORY: Since I last saw Mrs. Iva Goyal she reports that she is feeling more tired. She states that she was put on antibiotics for a UTI and that she had diarrhea on Tuesday and Tuesday (up to 15 bowel movements). She lost her balance and fell on Tuesday and bumped her head (she roxanna blood thinners, but had an MRI brain on 09/03 as noted above and this does not show a bleed). She states that she is getting IV fluids this afternoon. She has a chronic headache that she does not wake up with and is throughout her head and slowly increases through the day. She attributes this to stress. She denies focal weakness or numbness. She does have some lower back pain for about the last two weeks, but I don't see anything that corresponds on the PET/CT. She has had no seizures or loss of consciousness. She will be meeting Dr. Vela next week to consider a clinical trial. OBJECTIVE BP 103/59 (BP Location: Left arm, Patient Position: Sitting, Cuff Size: Regular) Pulse 75 Temp 36.1 ??C (Temporal) Wt 57.7 kg BMI 21.19 kg/m?? General: Mrs. Iva Goyal is a well-developed, thin appearing woman. she is seated in the examination room in no acute distress. ECO - symptomatic, <50% confined to bed. Neuro: alert and oriented X3. Cranial nerves II-XII are grossly. Motor strength is 4/5 and symmetric bilaterally. Finger to nose and rapid alternating movements are intact. DIAGNOSTICS I have reviewed the available imaging, operative and pathology reports as described above and reviewed in the EMR. ASSESSMENT / PLAN #1 Prior small cell lung cancer, s/p CHAIN REPAIRER 2017 #2 Recurrent lung cancer, s/p atezolizumab/carboplatin/etoposide X2 cycles #3 SBRT to a right lateral upper lung nodule initiated on March 28, 2023; completed on April 01, 2023 #4 IMPT to a right lateral upper lung nodule completed on May 16, 2023 #5 Lurbinectedin initiated in November 2023 #6 MR brain on May 14, 2024 demonstrated a new 10 mm focus of enhancement along the medial left olfactory gyrus, suspicious for an intracranial metastasis #7 Radiation therapy to the brain metastasis in the medial left olfactory gyrus; completed on June 20, 2024 #8 Enlarging left superior cerebellar brain metastasis, MRI September 03, 2024 Recurrence after retreatment for recurrence identified on imaging on September 03, 2024 date, with location of recurrence being distant involving the FAMILY ADVOCATE. I reviewed the above findings with Mrs. Goyal and her daughter. She has an enlarging cerebellar metastasis that is solitary at this time. I would favor treatment of this lesion to prevent neurologic symptoms. I understand her imaging is suggestion progression in the lungs and that Dr. Diallo had an extensive discussion regarding systemic options and that she is interested in seeing [place] providers to discuss tarlatamab on study and other options. We discussed the treatment alternatives including supportive care vs whole brain radiotherapy (WBRT) vs SRT. I believe she is a good candidate for single fraction SRT and the brain MRI was done in treatment position in case she wanted to proceed. We discussed the rationale, risks, side effects and goals of radiation therapy. We discussed the acute as well as adjunct faculty for medical terminology risks, including, but not limited to fatigue, skin erythema, hair loss, and small risks for brain necrosis. They understood and their questions were answered. She wished to proceed with treatment. We tentatively plan on delivering 2000 cGy in 1 fraction starting Saturday, September 07, 2024. My thanks to Drs. Diallo and Lio for the opportunity to participate in this patient's care. EDUCATION Ready to learn, no apparent learning barriers were identified; learning preferences include listening. Explained diagnosis and treatment plan; patient expressed understanding of the content. CONSENT Discussed the risks, benefits, alternatives, and the necessity of other members of the healthcare team participating in the procedure. All questions answered and consent given. I personally spent 25 minutes in care of the patient today. Time includes both non face to face andface to face patient care. Signed by: Franny Dutta M.D. 09/05/2024 1:08 PM CDT Radiation Oncology [facility] [address] [place] [address] [id number] ONCOLOGY FOLLOW-UP NOTE documented in this encounter Plan of Treatment Upcoming Encounters Date Type Department Care Team (Late st Contact Info) Description 09/14/2024 11:00 AM CDT Admin Visit Department of Oncology in [place], [place] [address] [place] [address] 09/17/2024 8:00 AM CDT Lab Department of Infusion Therapy in [place], [place] [address] [place] [phone] Jenny Vaca M.D. [address] [phone] 09/17/2024 1:30 PM CDT Office Visit Department of Internal Medicine in [place], [place] [address] [phone] Elissa Luo P.A.-C., M.S. [address] [phone] 09/18/2024 8:00 AM CDT Clinical Support Department of Oncology in [place], [place] [address] [place] [phone] Blossom Hernandez M.S.[place]., L.I.C.S.W. [address] [place] [phone] 09/20/2024 10:00 AM CDT Telemedicine Department of Oncology in [place], [place] [address] [place] [phone] Kerrie Vela M.B., B.Ch., M.D. [address] [place] [phone] 09/24/2024 8:30 AM CDT Lab Department of Oncology in [place], [place] [address] [place] [phone] Kerrie Vela M.B., B.Ch., M.D. [address] [place] [phone] 09/24/2024 9:40 AM CDT Office Visit Department of Oncology in [place], [place] [address] [place] [phone] Kerrie Vela M.B., B.Ch., M.D. [address] [place] [phone] 09/24/2024 10:20 AM CDT Education Department of Oncology in [address] [phone] Kerrie Vela M.B., B.Ch., M.D. [address] [place] [phone] 09/24/2024 11:30 AM CDT Appointment [facility], [facility], [facility] [address] [place] [phone] Kerrie Vela M.B., B.ChForeign, M.DForeign [address] [place] [phone] 09/25/2024 8:30 AM CDT Appointment [facility], [facility], [facility] [address] [place] [phone] Kerrie Vela M.B., B.ChForeign, M.D. [address] [place] [phone] 09/26/2024 8:30 AM CDT Appointment [facility], [facility], [facility] [address] [place] [phone] Kerrie Vela M.B., B.Ch., M.D. [address] [place] [phone] 09/28/2024 11:45 AM CDT Lab Department of Oncology in [place], [place] [address] [place] [phone] Kerrie Vela M.B., B.Ch., M.D. [address] [place] [phone] 09/28/2024 1:40 PM CDT Office Visit Department of Oncology in [place], [place] [address] [place] [phone] Dawood Ruiz P.A.-C. [address] [place] [phone] 10/01/2024 8:00 AM CDT Appointment [facility], [facility], [facility] [address] [place] [phone] Kerrie Vela M.B., B.ChForeign, M.DForeign [address] [place] [phone] 10/02/2024 8:00 AM CDT Appointment [facility], [facility], [facility] [address] [place] [phone] Kerrie Vela M.B., B.ChForeign, M.D. [address] [place] [phone] 10/03/2024 8:00 AM CDT Appointment [facility], [facility], [facility] [address] [place] [phone] Kerrie Vela M.B., B.Ch., M.DForeign [address] [place] [phone] 10/10/2024 6:30 AM CDT Lab Department of Oncology in [place], [place] [address] [place] [phone] Kerrie Vela M.B., B.Ch., M.D. [address] [place] [phone] 10/10/2024 8:20 AM CDT Office Visit Department of Oncology in [place], [place] [address] [place] [phone] Brittney Stuart M.D. [address] [place] [phone] 10/10/2024 12:30 PM CDT Infusion Department of Oncology in [place], [place] [address] [place] [phone] Kerrie Vela M.B., BDuran, M.D. [address] [place] [phone] 10/12/2024 11:20 AM CDT Office Visit Department of Oncology in [place], [place] [address] [place] [phone] Kerrie Vela M.B., BDuran, M.DForeign [address] [place] [phone] 10/17/2024 1:00 PM CDT Office Visit Department of Ophthalmology in [place], [place] [address] [place] [phone] Tomás Mcbride M.D. [address] [place] [phone] 10/23/2024 8:45 AM CDT Lab Department of Oncology in [address] [phone] Kerrie Vela M.B., B.ChForeign, M.DForeign [address] [place] [phone] 10/23/2024 11:00 AM CDT Office Visit Department of Oncology in [address] [phone] Kerrie Vela M.B., BDuran, M.D. [address] [place] [phone] 10/23/2024 11:30 AM CDT Appointment Department of Radiology in [place], [place] [address] [facility] [place] [address] Franny Dutta M.D. [address] [place] [phone] 10/24/2024 7:30 AM CDT Infusion Department of Oncology in [place], [place] [address] [place] [phone] Kerrie Vela M.B., B.ChForeign, M.DForeign [address] [place] [phone] 10/24/2024 11:00 AM CDT Appointment Department of Radiation Oncology in [place], [place] [address] [place] [phone] Franny Dutta M.D. [address] [place] [phone] 10/25/2024 11:00 AM CDT Office Visit Department of Oncology in [place], [place] [address] [place] [phone] Kerrie Vela M.B., B.ChForeign, M.D. [address] [place] [phone] 11/06/2024 7:00 AM CDT Lab Department of Oncology in [place], [place] [address] [place] [phone] Kerrie Vela M.B., B.ChForeign, M.DForeign [address] [place] [phone] 11/06/2024 9:00 AM CDT Office Visit Department of Oncology in [place], [place] [address] [place] [phone] Dawood Ruiz P.A.-C. [address] [place] [phone] 11/06/2024 10:00 AM CDT Infusion Department of Oncology in [place], [place] [address] [place] [phone] Kerrie Vela M.B., B.ChForeign, M.DForeign [address] [place] [phone] 11/20/2024 6:30 AM CDT Lab Department of Laboratory Medicine and Pathology, [facility] in [place], [place] [address] [place] [phone] Kerrie Vela M.B., B.ChForeign, M.D. [address] [place] [phone] 11/20/2024 8:20 AM CDT Office Visit Department of Oncology in [place], [place] [address] [place] [phone] Dawood Ruiz P.A.-C. [address] [place] [phone] 11/20/2024 9:00 AM CDT Infusion Department of Oncology in [place], [place] [address] [place] [phone] Kerrie Vela M.B., B.Ch., M.D. [address] [place] [phone] 12/04/2024 8:30 AM CDT Lab Department of Laboratory Medicine and Pathology, [facility] in [place], [place] [address] [place] [phone] Kerrie Vela M.B., B.Ch., M.D. [address] [place] [phone] 12/04/2024 10:20 AM CDT Office Visit Department of Oncology in [place], [place] [address] [place] [address] Kerrie Vela M.B., BDuran, MPhuc [address] [place] [phone] 12/04/2024 11:00 AM CDT Infusion Department of Oncology in [place], [place] [address] [place] [address] Kerrie Vela M.B., BDuran, MPhuc [address] [place] [phone] Scheduled Referrals Name Type Priority Associated Diagnoses Order Schedule Radiation Oncology office visit (clinic) Outpatient Referral Routine Once for 1 Occurrences starting 09/05/2024 until 09/05/2024 documented as of this encounter Visit Diagnoses Diagnosis Cancer Lung Small Cell Personal History- Primary 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 [address] [phone] PCP - General 11/11/16 documented as of this encounter
--- OUTSIDE RECORDS SUMMARY | 2024-09-13 12:37 | XMS_ITS | Encounter Summary ---
Author Organization [facility] Address [address] [place] [address] Care Team Providers Care Asset Card Clerk Name Role Phone Jenny Vaca M.D. Primary Care Provider [phone] Encounter Details Date Type Department Care Team (Late st Contact Info) Description 03/14/2017 Historical Ophthalmology [facility] Tomás Mcbride M.D. [address] [address] Social History Tobacco Use Types Packs/Day Years Used Date Smoking Tobacco: Every Day Comments No Sex and Gender Information Value Date Recorded Sex Assigned at Not on file Legal Sex Female 8:27 AM CONCESSION ATTENDANT Gender Identity Female 04/06/2017 8:58 AM CONCESSION ATTENDANT Sexual Orientation Straight 04/06/2017 8: 58 AM CONCESSION ATTENDANT documented as of this encounter Progress Notes * Tomás Mcbride M.D. - 03/14/2017 8:30 AM CDT Eye General CHIEF COMPLAINT FB sensation & pressure check HISTORY OF PRESENT ILLNESS Pt states experiencing FB sensation in Rt eye and needs eye pressure check. Rt eye vision seems blurry and headaches intermittent like stabbing pain in the top of head, all over the past week. IMPRESSION / REPORT / PLAN #1 Glaucoma steroid induced right eye. Improved IOP with prednisolone taper. Labile IOP with IOP this AM consistent with previous. Appears to be stable but given thin corneas this may not represent acceptable pressure range. OCT last visit with possible decrease in RNFL thickness both eyes. s/p SLT right eye. Good IOP response right eye IOP appears stable. #2 Keratitis superficial both eyes right greater than left. Definite exposure related. Plan: Lacrilube mickey bedtime and discontinue fans at bedtime. III DIAGNOSIS #1 Glaucoma steroid induced right eye. Improved IOP with prednisolone taper. Labile IOP with IOP this AM consistent with previous. Appears to be stable but given thin corneas this may not represent acceptable pressure range. OCT last visit with possible decrease in RNFL thickness both eyes. #2 Keratitis superficial both eyes right greater than left. Definite exposure related. CDM Reports - EYEGEN Id: [id number] Status: Fnl documented in this encounter Plan of Treatment Upcoming Encounters Date Type Department Care Team (Late st Contact Info) Description 09/14/2024 11:00 AM CDT Admin Visit Department of Oncology in [place], [place] [address] [place] [address] 09/17/2024 8:00 AM CDT Lab Department of Infusion Therapy in [place], [place] [address] [place] [phone] Jenny Vaca M.D. [address] [place] [phone] 09/17/2024 1:30 PM CDT Office Visit Department of Internal Medicine in [place], [place] [address] [place] [phone] Elissa Luo P.A.-C., M.S. [address] [phone] 09/18/2024 8:00 AM CDT Clinical Support Department of Oncology in [place], [place] [address] [place] [address] Blossom Hernandez M.S.W., L.I.C.S.W. [address] [place] [phone] 09/20/2024 10:00 AM CDT Telemedicine Department of Oncology in [place], [place] [address] [place] [phone] Kerrie Vela M.B., B.ChForeign, M.D. [address] [place] [phone] 09/24/2024 8:30 AM CDT Lab Department of Oncology in [place], [place] [address] [place] [phone] Kerrie Vela M.B., B.ChForeign, M.DForeign [address] [place] [phone] 09/24/2024 9:40 AM CDT Office Visit Department of Oncology in [place], [place] [address] [place] [phone] Kerrie Vela M.B., B.Ch., M.D. [address] [place] [phone] 09/24/2024 10:20 AM CDT Education Department of Oncology in [place], [place] [address] [place] [phone] Kerrie Vela M.B., B.Ch., M.D. [address] [place] [phone] 09/24/2024 11:30 AM CDT Appointment [facility], [facility], [facility], Lobby Level [address] [place] [phone] Kerrie Vela M.B., BForeignChForeign, M.DForeign [address] [place] [phone] 09/25/2024 8:30 AM CDT Appointment [facility], [facility], [address] [phone] Kerrie Vela M.B., BForeignChForeign, M.D. [address] [place] [phone] 09/26/2024 8:30 AM CDT Appointment [facility], [facility], [address] [phone] Kerrie Vela M.B., BForeignChForeign, M.DForeign [address] [place] [phone] 09/28/2024 11:45 AM CDT Lab Department of Oncology in [place], [place] [address] [place] [phone] Kerrie Vela M.B., B.Ch., M.D. [address] [place] [phone] 09/28/2024 1:40 PM CDT Office Visit Department of Oncology in [place], [place] [address] [place] [phone] Dawood Ruiz P.A.-C. [address] [place] [phone] 10/01/2024 8:00 AM CDT Appointment [facility], [facility], [address] [phone] Kerrie Vela M.B., BDuran, MPhuc [address] [place] [phone] 10/02/2024 8:00 AM CDT Appointment [facility], [facility], [facility] [address] [place] [phone] Kerrie Vela M.B., BDuran, M.Cecelia [address] [place] [phone] 10/03/2024 8:00 AM CDT Appointment [facility], [facility], [facility] [address] [place] [address] Kerrie Vela M.B., BDuran, M.Cecelia [address] [place] [phone] 10/10/2024 6:30 AM CDT Lab Department of Oncology in [place], [place] [address] [place] [phone] Kerrie Vela M.B., B.ChForeign, M.DForeign [address] [place] [phone] 10/10/2024 8:20 AM CDT Office Visit Department of Oncology in [place], [place] [address] [place] [phone] Brittney Stuart M.D. [address] [place] [address] [phone] 10/10/2024 12:30 PM CDT Infusion Department of Oncology in [place], [place] [address] [place] [phone] Kerrie Vela M.B., BDuran, M.D. [address] [place] [phone] 10/12/2024 11:20 AM CDT Office Visit Department of Oncology in [place], [place] [address] [place] [phone] Kerrie Vela M.B., B., M.DForeign [address] [place] [phone] 10/17/2024 1:00 PM CDT Office Visit Department of Ophthalmology in [place], [place] [address] [place] [phone] Tomás Mcbride M.D. [address] [place] [phone] 10/23/2024 8:45 AM CDT Lab Department of Oncology in [place], [place] [address] [place] [phone] Kerrie Vela M.B., B., M.DForeign [address] [place] [phone] 10/23/2024 11:00 AM CDT Office Visit Department of Oncology in [place], [place] [address] [place] [phone] Kerrie Vela M.B., B., M.D. [address] [place] [phone] 10/23/2024 11:30 AM CDT Appointment Department of Radiology in [place], [place] [address] [place] [phone] Franny Dutta M.D. [address] [place] [phone] 10/24/2024 7:30 AM CDT Infusion Department of Oncology in [place], [place] [address] [place] [phone] Kerrie Vela M.B., BDuran, M.D. [address] [place] [phone] 10/24/2024 11:00 AM CDT Appointment Department of Radiation Oncology in [place], [place] [address] [place] [phone] Franny Dutta M.D. [address] [place] [phone] 10/25/2024 11:00 AM CDT Office Visit Department of Oncology in [place], [place] [address] [place] [phone] Kerrie Vela M.B., B.ChForeign, M.D. [address] [place] [phone] 11/06/2024 7:00 AM CDT Lab Department of Oncology in [place], [place] [address] [place] [phone] Kerrie Vela M.B., B.Ch., M.D. [address] [place] [phone] 11/06/2024 9:00 AM CDT Office Visit Department of Oncology in [place], [place] [address] [place] [phone] Dawood Ruiz P.A.-C. [address] [place] [phone] 11/06/2024 10:00 AM CDT Infusion Department of Oncology in [place], [place] [address] [place] [phone] Kerrie Vela M.B., B.ChForeign, M.D. [address] [place] [phone] 11/20/2024 6:30 AM CDT Lab Department of Laboratory Medicine and Pathology, [facility] in [place], [place] [address] [place] [address] Kerrie Vela M.B., B.ChForeign, M.D. [address] [place] [phone] 11/20/2024 8:20 AM CDT Office Visit Department of Oncology in [place], [place] [address] [place] [address] Dawood Ruiz P.A.-C. [address] [place] [phone] 11/20/2024 9:00 AM CDT Infusion Department of Oncology in [place], [place] [address] [place] [phone] Kerrie Vela M.B., B.ChForeign, M.D. [address] [place] [phone] 12/04/2024 8:30 AM CDT Lab Department of Laboratory Medicine and Pathology, [facility], in [place], [place] [address] [place] [address] Kerrie Vela M.B., B.ChForeign, M.D. [address] [place] [phone] 12/04/2024 10:20 AM CDT Office Visit Department of Oncology in [place], [place] [address] [place] [address] Kerrie Vela M.B., Trevor, MPhuc [address] [place] [address] 12/04/2024 11:00 AM CDT Infusion Department of Oncology in [place], [place] [address] [place] [address] Kerrie Vela M.B., Trevor, Alin [address] [place] [address] documented as of this encounter Visit Diagnoses Not on filedocumented in this encounter Additional Health Concerns Infection Onset Date Last Indicated Resolved Time COVID19 Pending 09/25/2019 09/25/2019 09/26/2019 1 :51 AM CDT COVID19 Pending 11/08/2019 11/08/2019 11/09/2019 1 :40 AM CDT COVID19 Pending 12/20/2019 12/20/2019 12/21/2019 1 1:51 AM CDT Protective Environment 02/21/2023 02/21/202305/08 5:44 AM CONCESSION ATTENDANT Protective Environment 05/11/2023 05/11/202306/13 6:17 AM CONCESSION ATTENDANT Protective Environment 06/27/2023 06/27/202310/15 5:30 AM CDT Protective Environment 10/28/2023 10/28/202306/25 5:58 AM CONCESSION ATTENDANT Protective Environment 07/05/2024 07/05/202409/02 6:26 AM CDT Assessment Noted Time PHQ-9 Depression Total Score: 0 12/12/19 16 10:14 AM CDT documented as of this encounter Care Teams Asset Card Clerk Relationship Specialty Start Date End Date Jenny Vaca M.D. [address] [place] [phone] PCP - General 11/11/16 documented as of this encounter
--- OUTSIDE RECORDS SUMMARY | 2024-09-13 12:37 | XMS_ITS | Encounter Summary ---
Author Organization [facility] Address [address] [place] [address] Care Team Providers Care Buffet Attendant Name Role Phone Jenny Vaca M.D. Primary Care Provider [phone]- [phone] Encounter Details Date Type Department Care Team (Late st Contact Info) Description 03/24/2010 Historical Ophthalmology [facility] O[facility] Maria Eugenia Cifuentes M.D. [address] [place] [phone] Social History Tobacco Use Types Packs/Day Years Used Date Smoking Tobacco: Never Assessed Comments Unknown Sex and Gender Information Value Date Recorded Sex Assigned at Not on file Legal Sex Female 8:27 AM HOME HEALTH REGISTERED NURSE Gender Identity Female 04/06/2017 8:58 AM HOME HEALTH REGISTERED NURSE Sexual Orientation Straight 04/06/2017 8: 58 AM HOME HEALTH REGISTERED NURSE documented as of this encounter Progress Notes * Maria Eugenia Cifuentes M.D. - 03/24/2010 8:28 AM CDT Eye General CHIEF COMPLAINT 2 month follow up; blurred vision; left eye; x 2 months; rapidly progressive, uveitis flare up HISTORY OF PRESENT ILLNESS This is a 64 year old female here for a 2 month follow up; blurred vision; left eye; x 2 months; rapidly progressive; symptoms are severe. Uveitis flare up left eye 2 weeks after last visit, still treating. 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 Denies flashes of light and floaters. Patient denies ocular pain. RWS: patient has been following with Dr. Mcbride in [place] for uveitis of the left eye. On cosopt bid and prednisolone q2 hours. no ocular pain. no photopsias or floaters. 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 Last avastin shot left eye 05/2009 Rubeosis left eye noted as recently as May 2009; s/p PPV 05/2009. 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 Blood tests for uveitis panel. On predforte q2 h - started [address] Mcbride. 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 [address] [phone] 09/17/2024 1:30 PM CDT Office Visit Department of Internal Medicine in [place], [place] [address] [place] [phone] Elissa Luo, PFrancesca.-C., M.S. [address] [phone] 09/18/2024 8:00 AM CDT Clinical Support Department of Oncology in [address] [phone] Blossom Hernandez M.S.W., L.I.C.S.W. [address] [place] [phone] 09/20/2024 10:00 AM CDT Telemedicine Department of Oncology in [address] [phone] Kerrie Vela M.B., B.Ch., M.Cecelia [address] [place] [phone] 09/24/2024 8:30 AM CDT Lab Department of Oncology in [place], [place] [address] [place] [address] Kerrie Vela M.B., B.ChForeign, M.DForeign [address] [place] [phone] 09/24/2024 9:40 AM CDT Office Visit Department of Oncology in [place], [place] [address] [place] [phone] Kerrie Vela M.B., B.ChForeign, M.DForeign [address] [place] [phone] 09/24/2024 10:20 AM CDT Education Department of Oncology in [place], [place] [address] [place] [address] Kerrie Vela M.B., B.Ch., M.DForeign [address] [place] [phone] 09/24/2024 11:30 AM CDT Appointment [facility], [facility], [facility] [address] [place] [phone] Kerrie Vela M.B., B.Ch., M.DForeign [address] [place] [phone] 09/25/2024 8:30 AM CDT Appointment [facility], [facility], [facility] Level [address] [place] [phone] Kerrie Vela M.B., B.ChForeign, M.DForeign [address] [place] [phone] 09/26/2024 8:30 AM CDT Appointment [facility], [facility], [facility] [address] [place] [phone] Kerrie Vela M.B., B.ChForeign, M.DForeign [address] [place] [phone] 09/28/2024 11:45 AM CDT Lab Department of Oncology in [place], [place] [address] [place] [phone] Kerrie Vela M.B., B.ChForeign, M.DForeign [address] [place] [address] [phone] 09/28/2024 1:40 PM CDT Office Visit Department of Oncology in [place], [place] [address] [place] [phone] Dawood Ruiz P.A.-C. [address] [place] [phone] 10/01/2024 8:00 AM CDT Appointment [facility], [facility], [facility] [address] [place] [phone] Kerrie Vela M.B., B.Ch., M.DForeign [address] [place] [phone] 10/02/2024 8:00 AM CDT Appointment [facility], [facility], [facility] Level [address] [place] [phone] Kerrie Vela M.B., B.Ch., M.DForeign [address] [place] [phone] 10/03/2024 8:00 AM CDT Appointment [facility], [facility], [facility], Lobby Level [address] [place] [address] Kerrie Vela M.B., B.ChForeign, M.DForeign [address] [place] [phone] 10/10/2024 6:30 AM CDT Lab Department of Oncology in [place], [place] [address] [place] [phone] Kerrie Vela M.B., B.ChForeign, M.DForeign [address] [place] [phone] 10/10/2024 8:20 AM CDT Office Visit Department of Oncology in [place], [place] [address] [place] [phone] Brittney Stuart M.D. [address] [place] [phone] 10/10/2024 12:30 PM CDT Infusion Department of Oncology in [place], [place] [address] [place] [phone] Kerrie Vela M.B., B.Ch., M.DForeign [address] [place] [phone] 10/12/2024 11:20 AM CDT Office Visit Department of Oncology in [place], [place] [address] [place] [phone] Kerrie Vela M.B., B., M.DForeign [address] [place] [phone] 10/17/2024 1:00 PM CDT Office Visit Department of Ophthalmology in [place], [place] [address] [place] [phone] Tomás Mcbride M.D. [address] [place] [phone] 10/23/2024 8:45 AM CDT Lab Department of Oncology in [place], [place] [address] [place] [phone] Kerrie Vela M.B., BDuran, M.DForeign [address] [place] [phone] 10/23/2024 11:00 AM CDT Office Visit Department of Oncology in [place], [place] [address] [place] [address] Kerrie Vela M.B., B.ChForeign, M.DForeign [address] [place] [phone] 10/23/2024 11:30 AM CDT Appointment Department of Radiology in [place], [place] [address] [place] [phone] Franny Dutta M.D. [address] [place] [phone] 10/24/2024 7:30 AM CDT Infusion Department of Oncology in [place], [place] [address] [place] [address] Kerrie Vela M.B., B., M.DForeign [address] [place] [phone] 10/24/2024 11:00 AM CDT Appointment Department of Radiation Oncology in [place], [place] [address] [place] [phone] Franny Dutta M.D. [address] [place] [phone] 10/25/2024 11:00 AM CDT Office Visit Department of Oncology in [place], [place] [address] [place] [address] Kerrie Vela M.B., B., M.DForeign [address] [place] [phone] 11/06/2024 7:00 AM CDT Lab Department of Oncology in [place], [place] [address] [place] [phone] Kerrie Vela M.B., B., M.DForeign [address] [place] [phone] 11/06/2024 9:00 AM CDT Office Visit Department of Oncology in [place], [place] [address] [place] [phone] Dawood Ruiz P.A.-C. [address] [place] [phone] 11/06/2024 10:00 AM CDT Infusion Department of Oncology in [place], [place] [address] [place] [phone] Kerrie Vela M.B., B.ChForeign, M.DForeign [address] [place] [phone] 11/20/2024 6:30 AM CDT Lab Department of Laboratory Medicine and Pathology, [facility], in [place], [place] [address] [place] [phone] Kerrie Vela M.B., B.ChForeign, M.DForeign [address] [place] [phone] 11/20/2024 8:20 AM CDT Office Visit Department of Oncology in [address] [phone] Dawood Ruiz P.A.-C. [address] [place] [phone] 11/20/2024 9:00 AM CDT Infusion Department of Oncology in [address] [phone] Kerrie Vela M.B., B.Ch., M.D. [address] [place] [phone] 12/04/2024 8:30 AM CDT Lab Department of Laboratory Medicine and Pathology, [facility] in [address] [phone] Kerrie Vela M.B., B.Ch., M.D. [address] [place] [phone] 12/04/2024 10:20 AM CDT Office Visit Department of Oncology in [address] [phone] Kerrie Vela M.B., B.Ch., M.D. [address] [place] [phone] 12/04/2024 11:00 AM CDT Infusion Department of Oncology in [address] [phone] Kerrie Vela M.B., B.Ch., M.D. [address] [place] [phone] documented as of this encounter Visit Diagnoses Not on filedocumented in this encounter Additional Health Concerns Infection Onset Date Last Indicated Resolved Time COVID19 Pending 09/25/2019 09/25/2019 09/26/2019 1 :51 AM CDT COVID19 Pending 11/08/2019 11/08/2019 11/09/2019 1 :40 AM CDT COVID19 Pending 12/20/2019 12/20/2019 12/21/2019 1 1:51 AM CDT Protective Environment 02/21/2023 02/21/202305/08 5:44 AM HOME HEALTH REGISTERED NURSE Protective Environment 05/11/2023 05/11/202306/13 6:17 AM HOME HEALTH REGISTERED NURSE Protective Environment 06/27/2023 06/27/202310/15 5:30 AM CDT Protective Environment 10/28/2023 10/28/202306/25 5:58 AM HOME HEALTH REGISTERED NURSE Protective Environment 07/05/2024 07/05/202409/02 6:26 AM CDT documented as of this encounter Care Teams Buffet Attendant Relationship Specialty Start Date End Date Jenny Vaca M.D. [address] [place] [phone] PCP - General 11/11/16 documented as of this encounter
--- OUTSIDE RECORDS SUMMARY | 2024-09-13 12:37 | XMS_ITS | Encounter Summary ---
Author Organization [facility] Address [address] [place] [address] Care Team Providers Care Digital Advertising Analyst Name Role Phone Jenny Vaca M.D. Primary Care Provider [phone] Encounter Details Date Type Department Care Team (Late st Contact Info) Description 01/27/2017 Historical Ophthalmology [facility] Tomás Mcbride M.D. [address], [place] [address] Social History Tobacco Use Types Packs/Day Years Used Date Smoking Tobacco: Every Day Comments Unknown Sex and Gender Information Value Date Recorded Sex Assigned at Not on file Legal Sex Female 8:27 AM WELDER PLASTIC Gender Identity Female 04/06/2017 8:58 AM WELDER PLASTIC Sexual Orientation Straight 04/06/2017 8: 58 AM WELDER PLASTIC documented as of this encounter Progress Notes * Tomás Mcbride M.D. - 01/27/2017 8:16 AM CDT Eye General CHIEF COMPLAINT GLASSES RECHECK. HISTORY OF PRESENT ILLNESS STATES--I'm not here for the 2 month recheck. That is scheduled for 02/13/17. I have had problems with my new glasses. Wore them 5 days and had [facility] put my old lensesback in the frames. The add power didn't seem any different than the distance part. Good gen health. ROS--WNL. IMPRESSION / REPORT / PLAN #1 Presbyopia both eyes. Having difficulty with new Rx. Plan: Remake lens, right. RTC as scheduled. n/c DIAGNOSIS #1 Presbyopia both eyes. Having difficulty with new Rx. CDM Reports - EYEGEN Id: [id number] Status: Fnl documented in this encounter Plan of Treatment Upcoming Encounters Date Type Department Care Team (Late st Contact Info) Description 09/14/2024 11:00 AM CDT Admin Visit Department of Oncology in [place], [place] [address] [place] [phone] 09/17/2024 8:00 AM CDT Lab Department of Infusion Therapy in [place], [place] [address] [address] Jenny Vaca M.D. [address] [phone] 09/17/2024 1:30 PM CDT Office Visit Department of Internal Medicine in [place], [place] [address] [phone] Elissa Luo, PForeignA.-C., M.S. [address] [phone] 09/18/2024 8:00 AM CDT Clinical Support Department of Oncology in [place], [place] [address] [place] [phone] Blossom Hernandez, M.S.W., L.I.C.S.W. [address] [place] [phone] 09/20/2024 10:00 AM CDT Telemedicine Department of Oncology in [place], [place] [address] [place] [phone] Kerrie Vela M.B., BDuran, M.DForeign [address] [place] [phone] 09/24/2024 8:30 AM CDT Lab Department of Oncology in [place], [place] [address] [place] [phone] Kerrie Vela M.B., Trevor, M.DForeign [address] [place] [phone] 09/24/2024 9:40 AM CDT Office Visit Department of Oncology in [place], [place] [address] [place] [phone] Kerrie Vela M.B., BForeignChForeign, M.DForeign [address] [place] [phone] 09/24/2024 10:20 AM CDT Education Department of Oncology in [place], [place] [address] [place] [phone] Kerrie Vela M.B., BDuran, M.DForeign [address] [place] [phone] 09/24/2024 11:30 AM CDT Appointment [facility], [facility], [facility] [address] [place] [address] Kerrie Vela M.B., BDuran, M.DForeign [address] [place] [phone] 09/25/2024 8:30 AM CDT Appointment [facility], [facility], [address] [phone] Kerrie Vela M.B., BDuran, M.DForeign [address] [place] [phone] 09/26/2024 8:30 AM CDT Appointment [facility], [facility], [facility] [address] [place] [phone] Kerrie Vela M.B., Trevor, M.DForeign [address] [place] [phone] 09/28/2024 11:45 AM CDT Lab Department of Oncology in [place], [place] [address] [place] [phone] Kerrie Vela M.B., B.ChForeign, M.DForeign [address] [place] [phone] 09/28/2024 1:40 PM CDT Office Visit Department of Oncology in [place], [place] [address] [place] [phone] Dawood Ruiz P.A.-C. [address] [place] [phone] 10/01/2024 8:00 AM CDT Appointment [facility], [facility], [address] [phone] Kerrie Vela M.B., B.ChForeign, M.DForeign [address] [place] [phone] 10/02/2024 8:00 AM CDT Appointment [facility], [facility], [facility] [address] [place] [phone] Kerrie Vela M.B., BDuran, MPhuc [address] [place] [phone] 10/03/2024 8:00 AM CDT Appointment [facility], [facility], [facility], [address] [facility] [address] [place] [phone] Kerrie Vela M.B., BDuran, MPhuc [address] [place] [phone] 10/10/2024 6:30 AM CDT Lab Department of Oncology in [place], [place] [address] [place] [phone] Kerrie Vela M.B., B., M.Cecelia [address] [place] [phone] 10/10/2024 8:20 AM CDT Office Visit Department of Oncology in [place], [place] [address] [place] [phone] Brittney Stuart M.D. [address] [place] [phone] 10/10/2024 12:30 PM CDT Infusion Department of Oncology in [place], [place] [address] [place] [phone] Kerrie Vela M.B., B., M.DForeign [address] [place] [phone] 10/12/2024 11:20 AM CDT Office Visit Department of Oncology in [place], [place] [address] [place] [phone] Kerrie Vela M.B., BAlin Garzon [address] [place] [phone] 10/17/2024 1:00 PM CDT Office Visit Department of Ophthalmology in [place], [place] [address] [place] [address] Tomás Mcbride M.D. [address] [place] [address] 10/23/2024 8:45 AM CDT Lab Department of Oncology in [place], [place] [address] [place] [phone] Kerrie Vela M.B., Trevor, MPhuc [address] [place] [phone] 10/23/2024 11:00 AM CDT Office Visit Department of Oncology in [place], [place] [address] [place] [phone] Kerrie Vela M.B., B., M.DForeign [address] [place] [phone] 10/23/2024 11:30 AM CDT Appointment Department of Radiology in [place], [place] [address] [place] [phone] Franny Dutta M.D. [address] [place] [phone] 10/24/2024 7:30 AM CDT Infusion Department of Oncology in [place], [place] [address] [place] [phone] Kerrie Vela M.B., B., M.D. [address] [place] [phone] 10/24/2024 11:00 AM CDT Appointment Department of Radiation Oncology in [place], [place] [address] [place] [phone] Franny Dutta M.D. [address] [place] [phone] 10/25/2024 11:00 AM CDT Office Visit Department of Oncology in [place], [place] [address] [place] [phone] Kerrie Vela M.B., B.ChForeign, M.DForeign [address] [place] [phone] 11/06/2024 7:00 AM CDT Lab Department of Oncology in [address] [phone] Kerrie Vela M.B., B.ChForeign, M.DForeign [address] [place] [phone] 11/06/2024 9:00 AM CDT Office Visit Department of Oncology in [address] [phone] Dawood Ruiz P.A.-C. [address] [place] [phone] 11/06/2024 10:00 AM CDT Infusion Department of Oncology in [address] [phone] Kerrie Vela M.B., B.Ch., M.D. [address] [place] [phone] 11/20/2024 6:30 AM CDT Lab Department of Laboratory Medicine and Pathology, [facility] in [place], [place] [address] [place] [phone] Kerrie Vela M.B., BForeignChForeign, M.DForeign [address] [place] [phone] 11/20/2024 8:20 AM CDT Office Visit Department of Oncology in [place], [place] [address] [place] [phone] Dawood Ruiz P.A.-C. [address] [place] [phone] 11/20/2024 9:00 AM CDT Infusion Department of Oncology in [place], [place] [address] [place] [phone] Kerrie Vela M.B., BForeignChForeign, M.DForeign [address] [place] [phone] 12/04/2024 8:30 AM CDT Lab Department of Laboratory Medicine and Pathology, [facility] in [place], [place] [address] [place] [phone] Kerrie Vela M.B., B.ChForeign, M.DForeign [address] [place] [phone] 12/04/2024 10:20 AM CDT Office Visit Department of Oncology in [address] [address] Kerrie Vela M.B., B.ChForeign, M.D. [address] [place] [phone] 12/04/2024 11:00 AM CDT Infusion Department of Oncology in [place], [place] [address] [place] [phone] Kerrie Vela M.B., Alin Murray [address] [place] [address] documented as of this encounter Visit Diagnoses Not on filedocumented in this encounter Additional Health Concerns Infection Onset Date Last Indicated Resolved Time COVID19 Pending 09/25/2019 09/25/2019 09/26/2019 1 :51 AM CDT COVID19 Pending 11/08/2019 11/08/2019 11/09/2019 1 :40 AM CDT COVID19 Pending 12/20/2019 12/20/2019 12/21/2019 1 1:51 AM CDT Protective Environment 02/21/2023 02/21/202305/08 5:44 AM WELDER PLASTIC Protective Environment 05/11/2023 05/11/202306/13 6:17 AM WELDER PLASTIC Protective Environment 06/27/2023 06/27/202310/15 5:30 AM CDT Protective Environment 10/28/2023 10/28/202306/25 5:58 AM WELDER PLASTIC Protective Environment 07/05/2024 07/05/202409/02 6:26 AM CDT Assessment Noted Time PHQ-9 Depression Total Score: 0 12/12/19 16 10:14 AM CDT documented as of this encounter Care Teams Digital Advertising Analyst Relationship Specialty Start Date End Date Jenny Vaca M.D. [address], [place] [address] PCP - General 11/11/16 documented as of this encounter
--- OUTSIDE RECORDS SUMMARY | 2024-09-13 12:37 | XMS_ITS | Encounter Summary ---
Author Organization [facility] Address [address] [place] [address] Care Team Providers Care Multifocal Button Generator Name Role Phone Jenny Vaca M.D. Primary Care Provider [phone]- [phone] Encounter Details Date Type Department Care Team (Late st Contact Info) Description 03/25/2010 Historical Ophthalmology [facility] Maria Eugenia Cifuentes M.D. [address] [place] [phone] Social History Tobacco Use Types Packs/Day Years Used Date Smoking Tobacco: Never Assessed Comments Unknown Sex and Gender Information Value Date Recorded Sex Assigned at Not on file Legal Sex Female 8:27 AM ORDER ENTRY SPECIALIST Gender Identity Female 04/06/2017 8:58 AM ORDER ENTRY SPECIALIST Sexual Orientation Straight 04/06/2017 8: 58 AM ORDER ENTRY SPECIALIST documented as of this encounter Progress Notes * Maria Eugenia Cifuentes M.D. - 03/25/2010 10:51 AM CDT Eye General CHIEF COMPLAINT has active CME and uveitis, left eye s/p PPV left eye in 05/2009 HISTORY OF PRESENT ILLNESS Patient was here yesterday - see CDM note.; per note need to rule out infectious causes: plan AC tap left eye - will return tomorrow. Patient denies any vision changes from yesterday . blood sugar readings were 132 this morning. IMPRESSION / REPORT / PLAN #1 PDR [...] on Cosopt BID #7 Uveitis, left eye #8 corneal abrasion right eye occurred after IOP measurement 1109 FA results: right eye: no NV; [...] AC tap left eye - will return next week Complains of skin rashes that come and go: never been diagnosed. Blood tests for uveitis panel. CT scan - done treat corneal abrasion right eye (occurred after tonometry); patch and ointment. Do AC tap next week as patient does not want both eyes to be irritated. On predforte q2 h - started [address] Mcbride. 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 #3 Cataract right eye #4 Pseudophakia left eye #5 s/p membrane peel left eye #6 Steroid induced glaucoma #7 Uveitis, left eye #8 corneal abrasion right eye CDM Reports - EYEGEN Id: [id number] Status: Fnl documented in this encounter Plan of Treatment Upcoming Encounters Date Type Department Care Team (Late st Contact Info) Description 09/14/2024 11:00 AM CDT Admin Visit Department of Oncology in [place], [place] [address] [place] [phone] 09/17/2024 8:00 AM CDT Lab Department of Infusion Therapy in [place], [place] [address] [address] Jenny Vaca M.D. [address] [phone] 09/17/2024 1:30 PM CDT Office Visit Department of Internal Medicine in [place], [place] [address] [phone] Elissa Luo P.A.-Hesham., M.S. [address] [phone] 09/18/2024 8:00 AM CDT Clinical Support Department of Oncology in [place], [place] [address] [place] [phone] Blossom Hernandez M.S.W., L.I.C.S.W. [address] [place] [phone] 09/20/2024 10:00 AM CDT Telemedicine Department of Oncology in [place], [place] [address] [place] [phone] Kerrie Vela M.B., B.Ch., M.D. [address] [place] [phone] 09/24/2024 8:30 AM CDT Lab Department of Oncology in [place], [place] [address] [place] [phone] Kerrie Vela M.B., BDuran, MForeignDForeign [address] [place] [phone] 09/24/2024 9:40 AM CDT Office Visit Department of Oncology in [place], [place] [address] [place] [address] Kerrie Vela M.B., BDuran, M.DForeign [address] [place] [phone] 09/24/2024 10:20 AM CDT Education Department of Oncology in [place], [place] [address] [place] [phone] Kerrie Vela M.B., BDuran, M.DForeign [address] [place] [phone] 09/24/2024 11:30 AM CDT Appointment [facility], [facility], [facility] [address] [place] [phone] Kerrie Vela M.B., BForeignChForeign, M.DForeign [address] [place] [address] 09/25/2024 8:30 AM CDT Appointment [facility], [facility], [facility] [address] [place] [address] Kerrie Vela M.B., B.ChForeign, M.DForeign [address] [place] [phone] 09/26/2024 8:30 AM CDT Appointment [facility], [facility], [facility] [address] [place] [phone] Kerrie Vela M.B., BDuran, M.DForeign [address] [place] [phone] 09/28/2024 11:45 AM CDT Lab Department of Oncology in [place], [place] [address] [place] [address] Kerrie Vela M.B., BDuran, M.DForeign [address] [place] [phone] 09/28/2024 1:40 PM CDT Office Visit Department of Oncology in [place], [place] [address] [place] [phone] Dawood Ruiz P.A.-C. [address] [place] [phone] 10/01/2024 8:00 AM CDT Appointment [facility], [facility], [facility] [address] [place] [phone] Kerrie Vela M.B., B.ChForeign, M.DForeign [address] [place] [phone] 10/02/2024 8:00 AM CDT Appointment [facility], [facility], [facility] [address] [place] [phone] Kerrie Vela M.B., B.ChForeign, M.DForeign [address] [place] [phone] 10/03/2024 8:00 AM CDT Appointment [facility], [facility], [facility] [address] [place] [phone] Kerrie Vela M.B., B., M.DForeign [address] [place] [phone] 10/10/2024 6:30 AM CDT Lab Department of Oncology in [place], [place] [address] [place] [phone] Kerrie Vela M.B., B.ChForeign, M.DForeign [address] [place] [phone] 10/10/2024 8:20 AM CDT Office Visit Department of Oncology in [place], [place] [address] [place] [phone] Brittney Stuart M.D. [address] [place] [phone] 10/10/2024 12:30 PM CDT Infusion Department of Oncology in [place], [place] [address] [place] [phone] Kerrie Vela M.B., B.ChForeign, M.DForeign [address] [place] [phone] 10/12/2024 11:20 AM CDT Office Visit Department of Oncology in [place], [place] [address] [place] [phone] Kerrie Vela M.B., B., M.DForeign [address] [place] [phone] 10/17/2024 1:00 PM CDT Office Visit Department of Ophthalmology in [place], [place] [address] [place] [address] Tomás Mcbride M.D. [address] [place] [address] 10/23/2024 8:45 AM CDT Lab Department of Oncology in [place], [place] [address] [place] [address] Kerrie Vela M.B., Trevor, MPhuc [address] [place] [phone] 10/23/2024 11:00 AM CDT Office Visit Department of Oncology in [place], [place] [address] [place] [address] Kerrie Vela M.B., BDuran, MPhuc [address] [place] [phone] 10/23/2024 11:30 AM CDT Appointment Department of Radiology in [place], [place] [address] [place] [address] Franny Dutta M.D. [address] [place] [phone] 10/24/2024 7:30 AM CDT Infusion Department of Oncology in [place], [place] [address] [place] [address] Kerrie Vela M.B., B., MPhuc [address] [place] [phone] 10/24/2024 11:00 AM CDT Appointment Department of Radiation Oncology in [place], [place] [address] [place] [phone] Franny Dutta M.D. [address] [place] [phone] 10/25/2024 11:00 AM CDT Office Visit Department of Oncology in [place], [place] [address] [place] [address] Kerrie Vela M.B., BDuran, MPhuc [address] [place] [phone] 11/06/2024 7:00 AM CDT Lab Department of Oncology in [place], [place] [address] [place] [address] Kerrie Vela M.B., BuDran, M.Cecelia [address] [place] [phone] 11/06/2024 9:00 AM CDT Office Visit Department of Oncology in [place], [place] [address] [place] [address] Dawood Ruiz, P.A.-CForeign [address] [place] [phone] 11/06/2024 10:00 AM CDT Infusion Department of Oncology in [place], [place] [address] [place] [address] Kerrie Vela M.B., BDuran, M.DForeign [address] [place] [phone] 11/20/2024 6:30 AM CDT Lab Department of Laboratory Medicine and Pathology, [facility], in [place], [place] [address] [place] [address] Kerrie Vela M.B., B., M.Cecelia [address] [place] [phone] 11/20/2024 8:20 AM CDT Office Visit Department of Oncology in [place], [place] [address] [place] [address] Dawood Ruiz P.A.-C. [address] [place] [phone] 11/20/2024 9:00 AM CDT Infusion Department of Oncology in [place], [place] [address] [place] [phone] Kerrie Vela M.B., B.Ch., M.DForeign [address] [place] [phone] 12/04/2024 8:30 AM CDT Lab Department of Laboratory Medicine and Pathology, [facility] in [address] [phone] Kerrie Vela M.B., B.Ch., M.D. [address] [place] [phone] 12/04/2024 10:20 AM CDT Office Visit Department of Oncology in [address] [phone] Kerrie Vela M.B., B.Ch., M.D. [address] [place] [phone] 12/04/2024 11:00 AM CDT Infusion Department of Oncology in [address] [phone] Kerrie Vela M.B., B.Ch., M.D. [address] [place] [phone] documented as of this encounter Visit Diagnoses Not on filedocumented in this encounter Additional Health Concerns Infection Onset Date Last Indicated Resolved Time COVID19 Pending 09/25/2019 09/25/2019 09/26/2019 1 :51 AM CDT COVID19 Pending 11/08/2019 11/08/2019 11/09/2019 1 :40 AM CDT COVID19 Pending 12/20/2019 12/20/2019 12/21/2019 1 1:51 AM CDT Protective Environment 02/21/2023 02/21/202305/08 5:44 AM ORDER ENTRY SPECIALIST Protective Environment 05/11/2023 05/11/202306/13 6:17 AM ORDER ENTRY SPECIALIST Protective Environment 06/27/2023 06/27/202310/15 5:30 AM CDT Protective Environment 10/28/2023 10/28/202306/25 5:58 AM ORDER ENTRY SPECIALIST Protective Environment 07/05/2024 07/05/202409/02 6:26 AM CDT documented as of this encounter Care Teams Multifocal Button Generator Relationship Specialty Start Date End Date Jenny Vaca M.D. [address] [place] [address] PCP - General 11/11/16 documented as of this encounter
--- OUTSIDE RECORDS SUMMARY | 2024-09-13 12:37 | XMS_ITS | Encounter Summary ---
Author Organization [facility] Address [address] [place] [address] Care Team Providers Care Music Educator Name Role Phone Jenny Vaca M.D. Primary Care Provider [phone] Encounter Details Date Type Department Care Team (Late st Contact Info) Description 09/03/2024 Results Follow-Up Department of Internal Medicine in [place], [place] [address] [phone] Jenny Vaca M.D. [address] [place] [phone] Albumin, Random, Urine Social History Tobacco Use Types Packs/Day Years Used Date Smoking Tobacco: Every Day Cigarettes 0.5 60 Passive Smoke Exposure: Current Smokeless Tobacco: Never Alcohol Use Standard Drinks/Week Comments Yes 1 (1 standard drink = 0.6 oz pur e alcohol) 1 beer per night [facility] Utilities Answer Date Recorded In the past 12 months has e Lending a Helping Hand, gas, oil, or water [employer] threatened to shut off services in your [...] How often do you attend chur or rastafarian services? More than 4 times per year 09/27/2022 Do you belong to any clubs o r organizations such as episcopal groups, unions, fraternal or athletic groups, or [...] your living situation today? I have a [facility] place to live 07/08/2023 Comments No Sex and Gender Information Value Date Recorded Sex Assigned at Not on file Legal Sex Female 8:27 AM MINING CAPTAIN Gender Identity Female 04/06/2017 8:58 AM MINING CAPTAIN Sexual Orientation Straight 04/06/2017 8: 58 AM MINING CAPTAIN documented as of this encounter Plan of Treatment Upcoming Encounters Date Type Department Care Team (Late st Contact Info) Description 09/14/2024 11:00 AM CDT Admin Visit Department of Oncology in [place], [place] [address] [place] [address] 09/17/2024 8:00 AM CDT Lab Department of Infusion Therapy in [place], [place] [address] [place] [phone] Jenny Vaca M.D. [address] [place] [phone] 09/17/2024 1:30 PM CDT Office Visit Department of Internal Medicine in [place], [place] [address] [place] [phone] Elissa Luo P.A.-C., M.S. [address] [place] [phone] 09/18/2024 8:00 AM CDT Clinical Support Department of Oncology in [place], [place] [address] [place] [address] Blossom Hernandez, M.S.W., L.I.C.S.W. [address] [place] [phone] 09/20/2024 10:00 AM CDT Telemedicine Department of Oncology in [place], [place] [address] [place] [address] Kerrie Vela M.B., B.Ch., M.D. [address] [place] [phone] 09/24/2024 8:30 AM CDT Lab Department of Oncology in [place], [place] [address] [place] [phone] Kerrie Vela M.B., B.Ch., M.D. [address] [place] [phone] 09/24/2024 9:40 AM CDT Office Visit Department of Oncology in [place], [place] [address] [place] [address] Kerrie Vela M.B., BDuran, MPhuc [address] [place] [phone] 09/24/2024 10:20 AM CDT Education Department of Oncology in [place], [place] [address] [place] [phone] Kerrie Vela M.B., BDuran, M.Cecelia [address] [place] [phone] 09/24/2024 11:30 AM CDT Appointment [facility], [facility] [address] [place] [phone] Kerrie Vela M.B., Trevor, M.DForeign [address] [place] [phone] 09/25/2024 8:30 AM CDT Appointment [facility], [facility] [address] [place] [phone] Kerrie Vela M.B., BDuran, MForeignDForeign [address] [place] [phone] 09/26/2024 8:30 AM CDT Appointment [facility], [facility], [facility] [address] [place] [phone] Kerrie Vela M.B., B., M.DForeign [address] [place] [phone] 09/28/2024 11:45 AM CDT Lab Department of Oncology in [place], [place] [address] [place] [phone] Kerrie Vela M.B., BForeignChForeign, M.DForeign [address] [place] [phone] 09/28/2024 1:40 PM CDT Office Visit Department of Oncology in [place], [place] [address] [place] [address] Dawood Ruiz P.A.-C. [address] [place] [phone] 10/01/2024 8:00 AM CDT Appointment [facility], [facility], [facility] [address] [place] [phone] Kerrie Vela M.B., BDuran, M.DForeign [address] [place] [phone] 10/02/2024 8:00 AM CDT Appointment [facility], [facility] [address] [place] [phone] Kerrie Vela M.B., B.ChForeign, M.DForeign [address] [place] [phone] 10/03/2024 8:00 AM CDT Appointment [facility], [facility], [facility] [address] [place] [phone] Kerrie Vela M.B., B.ChForeign, M.DForeign [address] [place] [phone] 10/10/2024 6:30 AM CDT Lab Department of Oncology in [place], [place] [address] [place] [phone] Kerrie Vela M.B., B.ChForeign, M.DForeign [address] [place] [phone] 10/10/2024 8:20 AM CDT Office Visit Department of Oncology in [place], [place] [address] [place] [phone] Brittney Stuart M.D. [address] [place] [phone] 10/10/2024 12:30 PM CDT Infusion Department of Oncology in [place], [place] [address] [place] [phone] Kerrie Vela M.B., B.ChForeign, M.DForeign [address] [place] [phone] 10/12/2024 11:20 AM CDT Office Visit Department of Oncology in [place], [place] [address] [place] [phone] Kerrie Vela M.B., B.ChForeign, M.DForeign [address] [place] [phone] 10/17/2024 1:00 PM CDT Office Visit Department of Ophthalmology in [place], [place] [address] [place] [phone] Tomás Mcbride M.D. [address] [place] [phone] 10/23/2024 8:45 AM CDT Lab Department of Oncology in [address] [phone] Kerrie Vela M.B., B.ChForeign, M.DForeign [address] [place] [phone] 10/23/2024 11:00 AM CDT Office Visit Department of Oncology in [place], [place] [address] [place] [phone] Kerrie Vela M.B., Trevor, MForeignDForeign [address] [place] [phone] 10/23/2024 11:30 AM CDT Appointment Department of Radiology in [place], [place] [address] [place] [phone] Franny Dutta M.D. [address] [place] [phone] 10/24/2024 7:30 AM CDT Infusion Department of Oncology in [place], [place] [address] [place] [phone] Kerrie Vela M.B., Trevor, MForeignDForeign [address] [place] [phone] 10/24/2024 11:00 AM CDT Appointment Department of Radiation Oncology in [place], [place] [address] [place] [phone] Franny Dutta M.D. [address] [place] [phone] 10/25/2024 11:00 AM CDT Office Visit Department of Oncology in [place], [place] [address] [place] [phone] Kerrie Vela M.B., B., M.DForeign [address] [place] [phone] 11/06/2024 7:00 AM CDT Lab Department of Oncology in [place], [place] [address] [place] [phone] Kerrie Vela M.B., B.ChForeign, M.DForeign [address] [place] [phone] 11/06/2024 9:00 AM CDT Office Visit Department of Oncology in [place], [place] [address] [place] [phone] Dawood Ruiz P.A.-CForeign [address] [place] [phone] 11/06/2024 10:00 AM CDT Infusion Department of Oncology in [place], [place] [address] [place] [phone] Kerrie Vela M.B., B.ChForeign, M.DForeign [address] [place] [phone] 11/20/2024 6:30 AM CDT Lab Department of Laboratory Medicine and Pathology, [facility], in [place], [place] [address] [place] [phone] Kerrie Vela M.B., B.ChForeign, M.D. [address] [place] [phone] 11/20/2024 8:20 AM CDT Office Visit Department of Oncology in [place], [place] [address] [place] [phone] Dawood Ruiz P.A.-CForeign [address] [place] [phone] 11/20/2024 9:00 AM CDT Infusion Department of Oncology in [place], [place] [address] [place] [address] Kerrie Vela M.B., B.ChForeign, M.DForeign [address] [place] [phone] 12/04/2024 8:30 AM CDT Lab Department of Laboratory Medicine and Pathology, [facility], in [place], [place] [address] [place] [phone] Kerrie Vela M.B., B., M.DForeign [address] [place] [phone] 12/04/2024 10:20 AM CDT Office Visit Department of Oncology in [place], [place] [address] [place] [phone] Kerrie Vela M.B., Trevor, M.DForeign [address] [place] [phone] 12/04/2024 11:00 AM CDT Infusion Department of Oncology in [place], [place] [address] [place] [phone] Kerrie Vela M.B., B., M.D. [address] [place] [phone] documented as of this encounter Visit Diagnoses Not on filedocumented in this encounter Additional Health Concerns Assessment Noted Time PHQ-9 Depression Total Score: 0 07/04/19 24 9:20 AM MINING CAPTAIN documented as of this encounter Care Teams Music Educator Relationship Specialty Start Date End Date Jenny Vaca M.D. [address] [place] [phone] PCP - General 11/11/16 documented as of this encounter
--- OUTSIDE RECORDS SUMMARY | 2024-09-13 12:37 | XMS_ITS | Encounter Summary ---
Author Organization [facility] Address [address] [place] [address] Care Team Providers Care Occupational Therapy Technician Name Role Phone Jenny Vaca M.D. 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 [address] [place] [address] Phone: tel: fax: [facility] Region Referral ID Status Reason Start Date Expiration Date Visits Re quested Visits Authorized [id number] Closed 07/31/2024 10/31/2025 1 1 Encounter Details Date Type Department Care Team (Latest Contact Info) Description 09/05/2024 11:21 AM CDT - 09/05/2024 3:57 PM CDT Hospital Encounter Department of Radiation Oncology in [place], [place] [address] [place] [phone] Franny Dutta M.D. 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 More than 4 times per year 09/27/2022 Do you belong to any clubs o r organizations such as sikh groups, unions, fraternal or athletic groups, or [...] Answer Date Recorded PHQ-2 Score 0 06/18/2024 [facility] - Occupational Stress [...] your living situation today? I have a [facility] place to live 07/08/2023 Comments No Sex and Gender Information Value Date Recorded Sex Assigned at Not on file Legal Sex Female 8:27 AM LIVESTOCK NUTRITION TERRITORY MANAGER Gender Identity Female 04/06/2017 8:58 AM LIVESTOCK NUTRITION TERRITORY MANAGER Sexual Orientation Straight 04/06/2017 8: 58 AM LIVESTOCK NUTRITION TERRITORY MANAGER documented as of this encounter Medications at [...] 3 1 blood-glucose meter,continuous (FreeStyle [place] 3 [place]) 1 each (1 Device total) as directed. 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 Authorized by: Franny Dutta M.D. Simulation was performed under physician supervision based on physician order in preparation for radiation therapy. Physician was immediately available to provide assistance and direction throughout the procedure. Written consent for treatment was completed or confirmed. The patient was appropriately identified and placed in the treatment position using the necessary immobilization to ensure a reproducible treatment position. Reference castro were placed to facilitate marking of isocenter. Area scanned:Head Contrast used for the simulation procedure: None Patient position:head first supine Custom immobilization: SRS mask (2 part mask) Motion management: None Bolus: No CT guidance: Following positioning of the patient, a series of slices was obtained to be utilized in treatment planning. CT images were transferred to the Eclipse treatment planning system, after a reference isocenter was determined and marked. Segmentation and treatment planning will take place prior to treatment delivery. Patient set up and imaging was appropriate and completed without incident. Section Repairer use:No Cosigned by Franny Dutta M.D. at 09/05/2024 3:57 PM CDT Associated attestation - Franny Dutta M.D. - 09/05/2024 3:57 PM CDT I was present during all critical and ghotra portions of the procedure(s) and immediately available [facility] services the entire duration. See note for details. documented in this encounter Plan of Treatment Upcoming Encounters Date Type Department Care Team (Late st Contact Info) Description 09/14/2024 11:00 AM CDT Admin Visit Department of Oncology in [place], [place] [address] [place] [address] 09/17/2024 8:00 AM CDT Lab Department of Infusion Therapy in [place], [place] [address] [phone] Jenny Vaca M.D. [address] [phone] 09/17/2024 1:30 PM CDT Office Visit Department of Internal Medicine in [place], [place] [address] [phone] Elissa Luo P.A.-C., M.S. [address] [phone] 09/18/2024 8:00 AM CDT Clinical Support Department of Oncology in [place], [place] [address] [place] [phone] Blossom Hernandez M.S.[place]., L.I.C.S.W. [address] [place] [phone] 09/20/2024 10:00 AM CDT Telemedicine Department of Oncology in [place], [place] [address] [place] [phone] Kerrie Vela M.B., B.Ch., M.D. [address] [place] [phone] 09/24/2024 8:30 AM CDT Lab Department of Oncology in [place], [place] [address] [place] [phone] Kerrie Vela M.B., B.Ch., M.D. [address] [place] [phone] 09/24/2024 9:40 AM CDT Office Visit Department of Oncology in [address] [phone] Kerrie Vela M.B., B.Ch., M.D. [address] [place] [phone] 09/24/2024 10:20 AM CDT Education Department of Oncology in [place], [place] [address] [place] [phone] Kerrie Vela M.B., B.Ch., M.D. [address] [place] [phone] 09/24/2024 11:30 AM CDT Appointment [facility] [address] [phone] Kerrie Vela M.B., BDuran, M.DForeign [address] [place] [phone] 09/25/2024 8:30 AM CDT Appointment [facility], [address] [phone] Kerrie Vela M.B., BDuran, M.DForeign [address] [place] [phone] 09/26/2024 8:30 AM CDT Appointment [address] [phone] Kerrie Vela M.B., Trevor, M.DForeign [address] [place] [phone] 09/28/2024 11:45 AM CDT Lab Department of Oncology in [place], [place] [address] [place] [phone] Kerrie Vela M.B., B.ChForeign, M.DForeign [address] [place] [phone] 09/28/2024 1:40 PM CDT Office Visit Department of Oncology in [place], [place] [address] [place] [phone] Dawood Ruiz P.A.-C. [address] [place] [phone] 10/01/2024 8:00 AM CDT Appointment [facility], [address] [phone] Kerrie Vela M.B., BDuran, M.DForeign [address] [place] [phone] 10/02/2024 8:00 AM CDT Appointment [facility], [address] [phone] Kerrie Vela M.B., Trevor, M.DForeign [address] [place] [phone] 10/03/2024 8:00 AM CDT Appointment [facility], [facility], [address] [phone] Kerrie Vela M.B., BDuran, MForeignDForeign [address] [place] [phone] 10/10/2024 6:30 AM CDT Lab Department of Oncology in [place], [place] [address] [place] [phone] Kerrie Vela M.B., B.Ch., M.DForeign [address] [place] [phone] 10/10/2024 8:20 AM CDT Office Visit Department of Oncology in [place], [place] [address] [place] [phone] Brittney [place] M.D. [address] [place] [phone] 10/10/2024 12:30 PM CDT Infusion Department of Oncology in [place], [place] [address] [place] [phone] Kerrie Vela M.B., BDuran, M.DForeign [address] [place] [phone] 10/12/2024 11:20 AM CDT Office Visit Department of Oncology in [place], [place] [address] [place] [address] Kerrie Vela M.B., BDuran, M.DForeign [address] [place] [phone] 10/17/2024 1:00 PM CDT Office Visit Department of Ophthalmology in [place], [place] [address] [place] [phone] Tomás Mcbride M.D. [address] [place] [phone] 10/23/2024 8:45 AM CDT Lab Department of Oncology in [place], [place] [address] [place] [phone] Kerrie Vela M.B., BDuran, M.DForeign [address] [place] [phone] 10/23/2024 11:00 AM CDT Office Visit Department of Oncology in [place], [place] [address] [place] [phone] Kerrie Vela M.B., B., M.D. [address] [place] [phone] 10/23/2024 11:30 AM CDT Appointment Department of Radiology in [place], [place] [address] [place] [phone] Franny Dutta M.D. [address] [place] [phone] 10/24/2024 7:30 AM CDT Infusion Department of Oncology in [place], [place] [address] [place] [phone] Kerrie Vela M.B., BDuran, M.DForeign [address] [place] [phone] 10/24/2024 11:00 AM CDT Appointment Department of Radiation Oncology in [place], [place] [address] [place] [address] Franny Dutta M.D. [address] [place] [phone] 10/25/2024 11:00 AM CDT Office Visit Department of Oncology in [place], [place] [address] [place] [phone] Kerrie Vela M.B., B.ChForeign, M.D. [address] [place] [phone] 11/06/2024 7:00 AM CDT Lab Department of Oncology in [place], [place] [address] [place] [phone] Kerrie Vela M.B., B.Ch., M.DForeign [address] [place] [phone] 11/06/2024 9:00 AM CDT Office Visit Department of Oncology in [place], [place] [address] [place] [phone] Dawood Ruiz P.A.-C. [address] [place] [phone] 11/06/2024 10:00 AM CDT Infusion Department of Oncology in [place], [place] [address] [place] [phone] Kerrie Vela M.B., BForeignChForeign, M.DForeign [address] [place] [phone] 11/20/2024 6:30 AM CDT Lab Department of Laboratory Medicine and Pathology, [facility] in [place], [place] [address] [place] [phone] Kerrie Vela M.B., B.ChForeign, M.DForeign [address] [place] [phone] 11/20/2024 8:20 AM CDT Office Visit Department of Oncology in [place], [place] [address] [place] [phone] Dawood Ruiz P.A.-C. [address] [place] [phone] 11/20/2024 9:00 AM CDT Infusion Department of Oncology in [place], [place] [address] [place] [phone] Kerrie Vela M.B., B.ChForeign, M.DForeign [address] [place] [phone] 12/04/2024 8:30 AM CDT Lab Department of Laboratory Medicine and Pathology, [facility] in [place], [place] [address] [place] [phone] Kerrie Vela M.B., B.ChForeign, M.DForeign [address] [place] [phone] 12/04/2024 10:20 AM CDT Office Visit Department of Oncology in [place], [place] [address] [place] [phone] Kerrie Vela M.B., Trevor, Alin [address] [place] [address] 12/04/2024 11:00 AM CDT Infusion Department of Oncology in [place], [place] [address] [place] [phone] Kerrie Vela M.B., Alin Murray [address] [place] [phone] documented as of this encounter Procedures Procedure Name Priority Date/Time Associated Diagnosis Comments INITIAL RAD ONC TREATMENT PLANNING CT SIMULATION Routine 09/05/2024 11:30 AM CDT 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 09/05/2024 3:57 PM Initial Rad Onc Treatment Planning CT Simulation Performed by: Franny Dutta M.D. Authorized by: Franny Dutta M.D. Franny Dutta M.D. 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 [address] [place] [phone] PCP - General 11/11/16 documented as of this encounter
--- OUTSIDE RECORDS SUMMARY | 2024-09-13 12:37 | XMS_ITS | Encounter Summary ---
Author Organization [facility] Address [address] [place] [address] Care Team Providers Care Family Practitioner Name Role Phone Jenny Vaca M.D. Primary Care Provider [phone] Encounter Details Date Type Department Care Team (Late st Contact Info) Description 07/31/2010 Historical Ophthalmology RST OPH Maria Eugenia Cifuentes M.D. [address] [place] [phone] Social History Tobacco Use Types Packs/Day Years Used Date Smoking Tobacco: Never Assessed Comments Unknown Sex and Gender Information Value Date Recorded Sex Assigned at Not on file Legal Sex Female 8:27 AM GUEST ROOM ATTENDANT Gender Identity Female 04/06/2017 8:58 AM GUEST ROOM ATTENDANT Sexual Orientation Straight 04/06/2017 8: 58 AM GUEST ROOM ATTENDANT documented as of this encounter Progress Notes * Maria Eugenia Cifuentes M.D. - 07/31/2010 7:49 AM CST Eye General CHIEF COMPLAINT Continuing problems with uveitis; left eye. HISTORY OF PRESENT ILLNESS This is a 65 year old female here for continuing problems with uveitis; left eye; blurred vision; both eyes (left > right); worse within last 4 months; constantly. No flashes of light. Floaters; left eye; stable. Patient denies ocular pain. Light sensitivity; both eyes; sunglasses help. Patient denies any distorted vision. No other vision concerns. IMPRESSION / REPORT / PLAN #1 PDR [...] on Cosopt BID #7 Uveitis, left eye Complains of skin rashes that come and go: never been diagnosed. Blood tests for uveitis panel: show Hb 11.[address] scan - emphysematous changes and old granuloma AC tap: negative for bacteria, fungus and herpes #8 corneal abrasion right eye occurred after IOP measurement on 04/25/2010; now resolved 1109 FA results: right eye: no NV; PRP left eye: NVD superiorly; mild vitreous heme; CME; large area of capillary nonperfusion temporally;PRP OCT results 02/2010: right eye: temporal intraretinal cyst not involving fovea; no subretinal fluid left eye: nasal CME; no subretinal fluid Plan: inflammation controlled with drops; discussed it is the better of the options in terms of risk profile (systemic, intravitreal) continue FU with Dr Mcbride 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 #3 Cataract right eye #4 Pseudophakia left eye #5 s/p membrane peel left eye #6 Steroid induced glaucoma #7 Uveitis, left eye #8 corneal abrasion right eye CDM Reports - EYEGEN Id: [id number] Status: Fnl documented in this encounter Plan of Treatment Upcoming Encounters Date Type Department Care Team (Late st Contact Info) Description 09/14/2024 11:00 AM CDT Admin Visit Department of Oncology in [place], [place] [address] [place] [phone] 09/17/2024 8:00 AM CDT Lab Department of Infusion Therapy in [place], [place] [address] [phone] Jenny Vaca M.D. [address] [phone] 09/17/2024 1:30 PM CDT Office Visit Department of Internal Medicine in [place], [place] [address] [phone] Elissa Luo P.A.-C., M.S. [address] [phone] 09/18/2024 8:00 AM CDT Clinical Support Department of Oncology in [place], [place] [address] [place] [phone] Blossom Hernandez, M.S.W., L.I.C.S.W. [address] [place] [phone] 09/20/2024 10:00 AM CDT Telemedicine Department of Oncology in [place], [place] [address] [place] [phone] Kerrie Vela M.B., B.Ch., M.D. [address] [place] [phone] 09/24/2024 8:30 AM CDT Lab Department of Oncology in [place], [place] [address] [place] [phone] Kerrie Vela M.B., B.Ch., M.DForeign [address] [place] [phone] 09/24/2024 9:40 AM CDT Office Visit Department of Oncology in [place], [place] [address] [place] [phone] Kerrie Vela M.B., BDuran, M.DForeign [address] [place] [phone] 09/24/2024 10:20 AM CDT Education Department of Oncology in [place], [place] [address] [place] [phone] Kerrie Vela M.B., BDuran, MPhuc [address] [place] [phone] 09/24/2024 11:30 AM CDT Appointment [facility], [facility], [facility] [address] [place] [phone] Kerrie Vela M.B., B.ChForeign, M.DForeign [address] [place] [phone] 09/25/2024 8:30 AM CDT Appointment [facility], [facility], [facility] [address] [place] [phone] Kerrie Vela M.B., B.ChForeign, M.DForeign [address] [place] [phone] 09/26/2024 8:30 AM CDT Appointment [facility], [facility], [facility] Level [address] [place] [phone] Kerrie Vela M.B., B.Ch., MPhuc [address] [place] [phone] 09/28/2024 11:45 AM CDT Lab Department of Oncology in [place], [place] [address] [place] [phone] Kerrie Vela M.B., BDuran, MForeignDForeign [address] [place] [phone] 09/28/2024 1:40 PM CDT Office Visit Department of Oncology in [place], [place] [address] [place] [phone] Dawood Ruiz P.A.-C. [address] [place] [phone] 10/01/2024 8:00 AM CDT Appointment [facility] [address] [place] [phone] Kerrie Vela M.B., B.ChForeign, M.DForeign [address] [place] [phone] 10/02/2024 8:00 AM CDT Appointment [facility], [facility], [facility] [address] [place] [phone] Kerrie Vela M.B., B.ChForeign, M.DForeign [address] [place] [phone] 10/03/2024 8:00 AM CDT Appointment [facility], [facility], [facility] [address] [place] [phone] Kerrie Vela M.B., B.ChForeign, M.DForeign [address] [place] [phone] 10/10/2024 6:30 AM CDT Lab Department of Oncology in [place], [place] [address] [place] [phone] Kerrie Vela M.B., B.ChForeign, M.D. [address] [place] [phone] 10/10/2024 8:20 AM CDT Office Visit Department of Oncology in [place], [place] [address] [place] [phone] Brittney Stuart M.D. [address] [place] [phone] 10/10/2024 12:30 PM CDT Infusion Department of Oncology in [place], [place] [address] [place] [phone] Kerrie Vela M.B., B.ChForeign, M.D. [address] [place] [phone] 10/12/2024 11:20 AM CDT Office Visit Department of Oncology in [place], [place] [address] [place] [phone] Kerrie Vela M.B., B.ChForeign, M.D. [address] [place] [phone] 10/17/2024 1:00 PM CDT Office Visit Department of Ophthalmology in [place], [place] [address] [place] [address] Tomás Mcbride M.D. [address] [place] [address] 10/23/2024 8:45 AM CDT Lab Department of Oncology in [place], [place] [address] [place] [phone] Kerrie Vela M.B., Trevor, MPhuc [address] [place] [phone] 10/23/2024 11:00 AM CDT Office Visit Department of Oncology in [place], [place] [address] [place] [phone] Kerrie Vela M.B., BDuran, MPhuc [address] [place] [phone] 10/23/2024 11:30 AM CDT Appointment Department of Radiology in [place], [place] [address] [place] [phone] Franny Dutta M.D. [address] [place] [phone] 10/24/2024 7:30 AM CDT Infusion Department of Oncology in [place], [place] [address] [place] [phone] Kerrie Vela M.B., BDuran, MPhuc [address] [place] [phone] 10/24/2024 11:00 AM CDT Appointment Department of Radiation Oncology in [place], [place] [address] [place] [phone] Franny Dutta M.D. [address] [place] [phone] 10/25/2024 11:00 AM CDT Office Visit Department of Oncology in [place], [place] [address] [place] [phone] Kerrie Vela M.B., BDuran, M.DForeign [address] [place] [phone] 11/06/2024 7:00 AM CDT Lab Department of Oncology in [place], [place] [address] [place] [address] Kerrie Vela M.B., BForeignChForeign, M.DForeign [address] [place] [phone] 11/06/2024 9:00 AM CDT Office Visit Department of Oncology in [place], [place] [address] [place] [address] Dawood Ruiz, P.A.-CForeign [address] [place] [phone] 11/06/2024 10:00 AM CDT Infusion Department of Oncology in [place], [place] [address] [place] [address] Kerrie Vela M.B., B., M.D. [address] [place] [phone] 11/20/2024 6:30 AM CDT Lab Department of Laboratory Medicine and Pathology, [facility] in [place], [place] [address] [place] [address] Kerrie Vela M.B., B.ChForeign, M.DForeign [address] [place] [phone] 11/20/2024 8:20 AM CDT Office Visit Department of Oncology in [place], [place] [address] [place] [address] Dawood Ruiz, P.A.-CForeign [address] [place] [phone] 11/20/2024 9:00 AM CDT Infusion Department of Oncology in [place], [place] [address] [place] [phone] Kerrie Vela M.B., B.Ch., M.D. [address] [place] [phone] 12/04/2024 8:30 AM CDT Lab Department of Laboratory Medicine and Pathology, [facility], in [place], [place] [address] [place] [phone] Kerrie Vela M.B., B.Ch., M.D. [address] [place] [phone] 12/04/2024 10:20 AM CDT Office Visit Department of Oncology in [address] [phone] Kerrie Vela M.B., B.Ch., M.D. [address] [place] [phone] 12/04/2024 11:00 AM CDT Infusion Department of Oncology in [address] [phone] Kerrie Vela M.B., B.Ch., M.D. [address] [place] [phone] documented as of this encounter Visit Diagnoses Not on filedocumented in this encounter Additional Health Concerns Infection Onset Date Last Indicated Resolved Time COVID19 Pending 09/25/2019 09/25/2019 09/26/2019 1 :51 AM CDT COVID19 Pending 11/08/2019 11/08/2019 11/09/2019 1 :40 AM CDT COVID19 Pending 12/20/2019 12/20/2019 12/21/2019 1 1:51 AM CDT Protective Environment 02/21/2023 02/21/202305/08 5:44 AM GUEST ROOM ATTENDANT Protective Environment 05/11/2023 05/11/202306/13 6:17 AM GUEST ROOM ATTENDANT Protective Environment 06/27/2023 06/27/202310/15 5:30 AM CDT Protective Environment 10/28/2023 10/28/202306/25 5:58 AM GUEST ROOM ATTENDANT Protective Environment 07/05/2024 07/05/202409/02 6:26 AM CDT Assessment Noted Time PHQ-9 Depression Total Score: 3 07/09/19 11 8:55 AM GUEST ROOM ATTENDANT documented as of this encounter Care Teams Family Practitioner Relationship Specialty Start Date End Date Jenny Vaca M.D. [address] [place] [phone] PCP - General 11/11/16 documented as of this encounter
--- OUTSIDE RECORDS SUMMARY | 2024-09-13 12:38 | XMS_ITS | Encounter Summary ---
Author Organization [facility] Address [address] [place] [address] Care Team Providers Care Base Brander Name Role Phone Jenny Vaca M.D. Primary Care Provider Encounter Details Date Type Department Care Team (Late st Contact Info) Description 12/28/2010 Historical Ophthalmology RST OPH Maria Eugenia Cifuentes M.D. [address] [place] [address] Social History Tobacco Use Types Packs/Day Years Used Date Smoking Tobacco: Never Assessed Comments Unknown Sex and Gender Information Value Date Recorded Sex Assigned at Not on file Legal Sex Female 8:27 AM FLEET MANAGER Gender Identity Female 04/06/2017 8:58 AM FLEET MANAGER Sexual Orientation Straight 04/06/2017 8: 58 AM FLEET MANAGER documented as of this encounter Progress Notes * Maria Eugenia Cifuentes M.D. - 12/28/2010 8:25 AM CDT Eye General CHIEF COMPLAINT Continuing problems with uveitis; left eye. HISTORY OF PRESENT ILLNESS This is a 65 year old female here for continuing problems with uveitis. Floaters have resolved in left eye. Light sensitivity; both eyes; x 3 years; slowly progressive. Patient denies ocular pain. Last A1c was 6.6 on 10/09/10. 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 #3 Cataract right eye #4 Pseudophakia left eye #5 s/p membrane peel left eye #6 Steroid induced glaucoma #7 Uveitis, left eye #8 corneal abrasion right eye CDM Reports - EYEGEN Id: [id number] Status: Fnl documented in this encounter Plan of Treatment Upcoming Encounters Date Type Department Care Team (Late st Contact Info) Description 09/14/2024 11:00 AM CDT Admin Visit Department of Oncology in [place], [place] [address] [place] [phone] 09/17/2024 8:00 AM CDT Lab Department of Infusion Therapy in [place], [place] [address] [place] [phone] Jenny Vaca M.D. [address] [place] [phone] 09/17/2024 1:30 PM CDT Office Visit Department of Internal Medicine in [place], [place] [address] [place] [phone] Elissa Luo P.A.-C., M.S. [address] [phone] 09/18/2024 8:00 AM CDT Clinical Support Department of Oncology in [place], [place] [address] [place] [phone] Blossom Hernandez, M.S.W., L.I.C.S.W. [address] [place] [phone] 09/20/2024 10:00 AM CDT Telemedicine Department of Oncology in [place], [place] [address] [place] [phone] Kerrie Vela M.B., B.Ch., M.D. [address] [place] [phone] 09/24/2024 8:30 AM CDT Lab Department of Oncology in [place], [place] [address] [place] [phone] Kerrie Vela M.B., B.Ch., M.D. [address] [place] [phone] 09/24/2024 9:40 AM CDT Office Visit Department of Oncology in [place], [place] [address] [place] [phone] Kerrie Vela M.B., BForeignChForeign, M.D. [address] [place] [phone] 09/24/2024 10:20 AM CDT Education Department of Oncology in [place], [place] [address] [place] [phone] Kerrie Vela M.B., BForeignChForeign, M.D. [address] [place] [phone] 09/24/2024 11:30 AM CDT Appointment [facility], [facility], [facility] [address] [place] [phone] Kerrie Vela M.B., B.Ch., M.DForeign [address] [place] [phone] 09/25/2024 8:30 AM CDT Appointment [facility], [facility], [facility] [address] [place] [phone] Kerrie Vela M.B., B.ChForeign, M.DForeign [address] [place] [phone] 09/26/2024 8:30 AM CDT Appointment [facility], [facility], [facility] [address] [place] [phone] Kerrie Vela M.B., B.ChForeign, M.DForeign [address] [place] [phone] 09/28/2024 11:45 AM CDT Lab Department of Oncology in [place], [place] [address] [place] [phone] Kerrie Vela M.B., B.ChForeign, M.D. [address] [place] [phone] 09/28/2024 1:40 PM CDT Office Visit Department of Oncology in [place], [place] [address] [place] [phone] Dawood Ruiz P.A.-C. [address] [place] [phone] 10/01/2024 8:00 AM CDT Appointment [facility], [facility], [facility] [address] [place] [phone] Kerrie Vela M.B., B.ChForeign, M.D. [address] [place] [phone] 10/02/2024 8:00 AM CDT Appointment [facility], [facility], [facility] [address] [place] [phone] Kerrie Vela M.B., B.Ch., M.D. [address] [place] [phone] 10/03/2024 8:00 AM CDT Appointment [facility], [facility], [facility] [address] [place] [phone] Kerrie Vela M.B., B.Ch., M.DForeign [address] [place] [phone] 10/10/2024 6:30 AM CDT Lab Department of Oncology in [place], [place] [address] [place] [phone] Kerrie Vela M.B., B.ChForeign, M.D. [address] [place] [phone] 10/10/2024 8:20 AM CDT Office Visit Department of Oncology in [place], [place] [address] [place] [phone] Brittney Sutart M.D. [address] [place] [phone] 10/10/2024 12:30 PM CDT Infusion Department of Oncology in [place], [place] [address] [place] [phone] Kerrie Vela M.B., B.Ch., M.D. [address] [place] [phone] 10/12/2024 11:20 AM CDT Office Visit Department of Oncology in [place], [place] [address] [place] [phone] Kerrie Vela M.B., B.Ch., M.D. [address] [place] [phone] 10/17/2024 1:00 PM CDT Office Visit Department of Ophthalmology in [place], [place] [address] [place] [address] Tomás Mcbride M.D. [address] [place] [address] 10/23/2024 8:45 AM CDT Lab Department of Oncology in [place], [place] [address] [place] [phone] Kerrie Vela M.B., BDuran, M.Cecelia [address] [place] [phone] 10/23/2024 11:00 AM CDT Office Visit Department of Oncology in [place], [place] [address] [place] [address] Kerrie Vela M.B., BDuran, M.Cecelia [address] [place] [phone] 10/23/2024 11:30 AM CDT Appointment Department of Radiology in [place], [place] [address] [place] [address] Franny Dutta M.D. [address] [place] [phone] 10/24/2024 7:30 AM CDT Infusion Department of Oncology in [place], [place] [address] [place] [address] Kerrie Vela M.B., BDuran, MPhuc [address] [place] [phone] 10/24/2024 11:00 AM CDT Appointment Department of Radiation Oncology in [place], [place] [address] [place] [phone] Franny Dutta M.D. [address] [place] [phone] 10/25/2024 11:00 AM CDT Office Visit Department of Oncology in [place], [place] [address] [place] [address] Kerrie Vela M.B., Trevor, M.Cecelia [address] [place] [phone] 11/06/2024 7:00 AM CDT Lab Department of Oncology in [place], [place] [address] [place] [address] Kerrie Vela M.B., BDuran, M.Lorena. [address] [place] [phone] 11/06/2024 9:00 AM CDT Office Visit Department of Oncology in [place], [place] [address] [place] [phone] Dawood Ruiz, P.A.-CForeign [address] [place] [phone] 11/06/2024 10:00 AM CDT Infusion Department of Oncology in [place], [place] [address] [place] [phone] Kerrie Vela M.B., BDuran, M.DForeign [address] [place] [phone] 11/20/2024 6:30 AM CDT Lab Department of Laboratory Medicine and Pathology, [facility], in [place], [place] [address] [place] [phone] Kerrie Vela M.B., BDuran, M.Cecelia [address] [place] [phone] 11/20/2024 8:20 AM CDT Office Visit Department of Oncology in [place], [place] [address] [place] [phone] Dawood Ruiz P.A.-CForeign [address] [place] [phone] 11/20/2024 9:00 AM CDT Infusion Department of Oncology in [place], [place] [address] [place] [phone] Kerrie Vela M.B., BDuran, M.D. [address] [place] [phone] 12/04/2024 8:30 AM CDT Lab Department of Laboratory Medicine and Pathology, [facility] in [address] [phone] Kerire Vela M.B., BDuran, M.DForeign [address] [place] [phone] 12/04/2024 10:20 AM CDT Office Visit Department of Oncology in [address] [phone] Kerrie Vela M.B., B.ChForeign, M.D. [address] [place] [phone] 12/04/2024 11:00 AM CDT Infusion Department of Oncology in [address] [phone] Kerrie Vela M.B., B.Ch., M.DForeign [address] [place] [phone] documented as of this encounter Visit Diagnoses Not on filedocumented in this encounter Additional Health Concerns Infection Onset Date Last Indicated Resolved Time COVID19 Pending 09/25/2019 09/25/2019 09/26/2019 1 :51 AM CDT COVID19 Pending 11/08/2019 11/08/2019 11/09/2019 1 :40 AM CDT COVID19 Pending 12/20/2019 12/20/2019 12/21/2019 1 1:51 AM CDT Protective Environment 02/21/2023 02/21/202305/08 5:44 AM FLEET MANAGER Protective Environment 05/11/2023 05/11/202306/13 6:17 AM FLEET MANAGER Protective Environment 06/27/2023 06/27/202310/15 5:30 AM CDT Protective Environment 10/28/2023 10/28/202306/25 5:58 AM FLEET MANAGER Protective Environment 07/05/2024 07/05/202409/02 6:26 AM CDT Assessment Noted Time PHQ-9 Depression Total Score: 3 07/09/19 11 8:55 AM FLEET MANAGER documented as of this encounter Care Teams Base Brander Relationship Specialty Start Date End Date Jenny Vaca M.D. [address] [place] [address] PCP - General 11/11/16 documented as of this encounter
--- OUTSIDE RECORDS SUMMARY | 2024-09-13 12:38 | XMS_ITS | Clinical Summary ---
Author Organization [facility] Address [address] [place] [address] Care Team Providers Care Title I Instructional Assistant Name Role Phone Jenny Vaca MD Primary [...] afterwards 600 mL 5 4 2:47 PM PAROLE HEARING OFFICER 03/04/20 Active Active Problems Problem Noted Date [...] on file Legal Sex Female 5:23 AM PAROLE HEARING OFFICER Gender Identity Not on file Sexual Orientation Not on file Obstetrics History Last Filed Vital Signs Vital Sign Reading Time Taken Comments Blood Pressure 157/75 05/24/2024 1:30 PM PAROLE HEARING OFFICER Pulse 76 05/24/2024 1:30 PM PAROLE HEARING OFFICER Temperature 36.3 C (97.4 F) 05/24/2024 1:30 PM PAROLE HEARING OFFICER Respiratory Rate 18 05/24/2024 1:30 PM PAROLE HEARING OFFICER Oxygen Saturation 96% 02/13/2024 5:26 PM CDT [...] 13, 02/15/2011 Medical Devices Implanted Type Area Field Traffic Investigator Device Identifier Shelf Expiration Date Model / Serial / Lot Lens Iol Zcb00 19.0 - [id number] Implanted:Qty: 1 on 08/25/2011 at [facility] Right: Eye 12/28/2013 [id number]# / [id number] / Port 8fr [employer] Clearvue Slim Inter[employer]cn - [id number] Implanted:Qty: 1 on 03/04/2023 by Kaylynn Espinoza MD at [facility] [employer] 10/27/2024 [id number] / / [id number] Insurance MEDICARE PART B HB ONLY MEDICARE PART A HB ONLY MEDICA PRIME SOLUTIONS MR PB ONLY MEDICA PRIME SOLUTION [place] [id number] Advance Directives * Full Code (Latest Code [...] 4:47 PM 10/03/2013 2:10 AM Care Teams Title I Instructional Assistant Relationship Specialty Start Date End Date Jenny Vaca MD [address] [address] PCP - General 04/29/09
--- OUTSIDE RECORDS SUMMARY | 2024-09-13 12:38 | XMS_ITS | Encounter Summary ---
Author Organization [facility] Address [address] [place] [address] Care Team Providers Care Edger Machine Setter Name Role Phone Jenny Vaca M.D. Primary Care Provider [phone] Encounter Details Date Type Department Care Team (Late st Contact Info) Description 04/01/2010 Historical Ophthalmology RST OPH Maria Eugenia Cifuentes M.D. [address] [place] [address] Social History Tobacco Use Types Packs/Day Years Used Date Smoking Tobacco: Never Assessed Comments Unknown Sex and Gender Information Value Date Recorded Sex Assigned at Not on file Legal Sex Female 8:27 AM TITLE SEARCH MANAGER Gender Identity Female 04/06/2017 8:58 AM TITLE SEARCH MANAGER Sexual Orientation Straight 04/06/2017 8: 58 AM TITLE SEARCH MANAGER documented as of this encounter Progress Notes * Maria Eugenia Cifuentes M.D. - 04/01/2010 8:02 AM CDT Eye General CHIEF COMPLAINT One week follow up - corneal abrasion right eye HISTORY OF PRESENT ILLNESS This is a 64 year old female here for a one week follow up on corneal abrasion right eye, PDR both eyes, CME both eyes. She has rubeosis left eye, cataract right eye, s/p membrane peel left eye, steroid induced glaucoma, uveitis, left eye . She was followed up at local eye doctor through out the week. Patient denies ocular pain. Vision seems to be improving right eye. Denies flashes of light and floaters. She had a flare up of uveitis since the corneal abrasion and is on drops now in both eyes. 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 #3 Cataract right eye #4 Pseudophakia left eye #5 s/p membrane peel left eye #6 Steroid induced glaucoma #7 Uveitis, left eye #8 corneal abrasion right eye CDM Reports - EYEGEN Id: [id number] Status: Fnl documented in this encounter Plan of Treatment Upcoming Encounters Date Type Department Care Team (Late st Contact Info) Description 09/14/2024 11:00 AM CDT Admin Visit Department of Oncology in [place], [place] [address] [place] [phone] 09/17/2024 8:00 AM CDT Lab Department of Infusion Therapy in [place], [place] [address] [phone] Jenny Vaca M.D. [address] [phone] 09/17/2024 1:30 PM CDT Office Visit Department of Internal Medicine in [place], [place] [address] [phone] Elissa Luo, Jaime-Hesham., M.S. [address] [phone] 09/18/2024 8:00 AM CDT Clinical Support Department of Oncology in [place], [place] [address] [place] [phone] Blossom Hernandez M.S.W., L.I.C.S.W. [address] [place] [phone] 09/20/2024 10:00 AM CDT Telemedicine Department of Oncology in [place], [place] [address] [place] [phone] Kerrie Vela M.B., B.Ch., M.D. [address] [place] [phone] 09/24/2024 8:30 AM CDT Lab Department of Oncology in [place], [place] [address] [place] [phone] Kerrie Vela M.B., BDuran, M.DForeign [address] [place] [phone] 09/24/2024 9:40 AM CDT Office Visit Department of Oncology in [place], [place] [address] [place] [phone] Kerrie Vela M.B., B.ChForeign, M.DForeign [address] [place] [phone] 09/24/2024 10:20 AM CDT Education Department of Oncology in [place], [place] [address] [place] [phone] Kerrie Vela M.B., B.ChForeign, M.DForeign [address] [place] [phone] 09/24/2024 11:30 AM CDT Appointment [facility], [facility], [facility] [address] [place] [phone] Kerrie Vela M.B., B.Ch., M.DForeign [address] [place] [phone] 09/25/2024 8:30 AM CDT Appointment [facility], [facility], [facility] [address] [place] [phone] Kerrie Vela M.B., B.ChForeign, M.D. [address] [place] [phone] 09/26/2024 8:30 AM CDT Appointment [facility], [facility], [facility] Level [address] [place] [phone] Kerrie Vela M.B., BDuran, M.DForeign [address] [place] [phone] 09/28/2024 11:45 AM CDT Lab Department of Oncology in [place], [place] [address] [place] [phone] Kerrie Vela M.B., B.ChForeign, M.DForeign [address] [place] [phone] 09/28/2024 1:40 PM CDT Office Visit Department of Oncology in [place], [place] [address] [place] [phone] Dawood Ruiz P.A.-C. [address] [place] [phone] 10/01/2024 8:00 AM CDT Appointment [facility], [facility], [facility] [address] [place] [phone] Kerrie Vela M.B., B.Ch., M.DForeign [address] [place] [phone] 10/02/2024 8:00 AM CDT Appointment [facility], [facility], [facility] [address] [place] [address] Kerrie Vela M.B., B.ChForeign, M.DForeign [address] [place] [phone] 10/03/2024 8:00 AM CDT Appointment [facility], [facility], [facility], [facility] [address] [place] [phone] Kerrie Vela M.B., BDuran, MPhuc [address] [place] [phone] 10/10/2024 6:30 AM CDT Lab Department of Oncology in [place], [place] [address] [place] [phone] Kerrie Vela M.B., BDuran, MPhuc [address] [place] [phone] 10/10/2024 8:20 AM CDT Office Visit Department of Oncology in [place], [place] [address] [place] [phone] Brittney Stuart M.D. [address] [place] [phone] 10/10/2024 12:30 PM CDT Infusion Department of Oncology in [place], [place] [address] [place] [phone] Kerrie Vela M.B., B., M.DForeign [address] [place] [phone] 10/12/2024 11:20 AM CDT Office Visit Department of Oncology in [place], [place] [address] [place] [phone] Kerrie Vela M.B., B., M.DForeign [address] [place] [phone] 10/17/2024 1:00 PM CDT Office Visit Department of Ophthalmology in [place], [place] [address] [place] [address] Tomás Mcbride M.D. [address] [place] [address] 10/23/2024 8:45 AM CDT Lab Department of Oncology in [place], [place] [address] [place] [address] Kerrie Vela M.B., BDuran, M.DForeign [address] [place] [phone] 10/23/2024 11:00 AM CDT Office Visit Department of Oncology in [place], [place] [address] [place] [address] Kerrie Vela M.B., BDuran, M.D. [address] [place] [phone] 10/23/2024 11:30 AM CDT Appointment Department of Radiology in [place], [place] [address] [place] [phone] Franny Dutta M.D. [address] [place] [phone] 10/24/2024 7:30 AM CDT Infusion Department of Oncology in [place], [place] [address] [place] [address] Kerrie Vela M.B., B., M.DForeign [address] [place] [phone] 10/24/2024 11:00 AM CDT Appointment Department of Radiation Oncology in [place], [place] [address] [facility] [phone] Franny Dutta M.D. [address] [place] [address] 10/25/2024 11:00 AM CDT Office Visit Department of Oncology in [place], [place] [address] [place] [phone] Kerrie Vela M.B., BDuran, M.DForeign [address] [place] [phone] 11/06/2024 7:00 AM CDT Lab Department of Oncology in [place], [place] [address] [place] [phone] Kerrie Vela M.B., B.ChForeign, M.DForeign [address] [place] [phone] 11/06/2024 9:00 AM CDT Office Visit Department of Oncology in [place], [place] [address] [place] [phone] Dawood Ruiz P.A.-C. [address] [place] [phone] 11/06/2024 10:00 AM CDT Infusion Department of Oncology in [place], [place] [address] [place] [phone] Kerrie Vela M.B., B.Ch., M.DForeign [address] [place] [phone] 11/20/2024 6:30 AM CDT Lab Department of Laboratory Medicine and Pathology, [facility], in [place], [place] [address] [place] [phone] Kerrie Vela M.B., B.ChForeign, M.D. [address] [place] [phone] 11/20/2024 8:20 AM CDT Office Visit Department of Oncology in [place], [place] [address] [place] [phone] Dawood uRiz P.A.-C. [address] [place] [phone] 11/20/2024 9:00 AM CDT Infusion Department of Oncology in [place], [place] [address] [place] [phone] Kerrie Vela M.B., B.ChForeign, M.DForeign [address] [place] [phone] 12/04/2024 8:30 AM CDT Lab Department of Laboratory Medicine and Pathology, [facility] in [place], [place] [address] [place] [phone] Kerrie Vela M.B., B.ChForeign, M.DForeign [address] [place] [phone] 12/04/2024 10:20 AM CDT Office Visit Department of Oncology in [address] [phone] Kerrie Vela M.B., B.Ch., M.D. [address] [place] [phone] 12/04/2024 11:00 AM CDT Infusion Department of Oncology in [address] [phone] Kerrie Vela M.B., B.Ch., M.D. [address] [place] [phone] documented as of this encounter Visit Diagnoses Not on filedocumented in this encounter Additional Health Concerns Infection Onset Date Last Indicated Resolved Time COVID19 Pending 09/25/2019 09/25/2019 09/26/2019 1 :51 AM CDT COVID19 Pending 11/08/2019 11/08/2019 11/09/2019 1 :40 AM CDT COVID19 Pending 12/20/2019 12/20/2019 12/21/2019 1 1:51 AM CDT Protective Environment 02/21/2023 02/21/202305/08 5:44 AM TITLE SEARCH MANAGER Protective Environment 05/11/2023 05/11/202306/13 6:17 AM TITLE SEARCH MANAGER Protective Environment 06/27/2023 06/27/202310/15 5:30 AM CDT Protective Environment 10/28/2023 10/28/202306/25 5:58 AM TITLE SEARCH MANAGER Protective Environment 07/05/2024 07/05/202409/02 6:26 AM CDT documented as of this encounter Care Teams Edger Machine Setter Relationship Specialty Start Date End Date Jenny Vaca M.D. NPAria: [phone] [address] [place] [address] PCP - General 11/11/16 documented as of this encounter
--- OUTSIDE RECORDS SUMMARY | 2024-09-13 12:38 | XMS_ITS | Encounter Summary ---
Author Organization [facility] Address [address] [place] [address] Care Team Providers Care Supervisor Shuttle Fitting Name Role Phone Jenny Vaca M.D. Primary Care Provider Encounter Details Date Type Department Care Team (Late st Contact Info) Description 04/16/2009 Historical Ophthalmology RST OPH Maria Eugenia Cifuentes M.D. [address] [place] [address] Social History Tobacco Use Types Packs/Day Years Used Date Smoking Tobacco: Never Assessed Comments Unknown Sex and Gender Information Value Date Recorded Sex Assigned at Not on file Legal Sex Female 8:27 AM CREDENTIALING MANAGER Gender Identity Female 04/06/2017 8:58 AM CREDENTIALING MANAGER Sexual Orientation Straight 04/06/2017 8: 58 AM CREDENTIALING MANAGER documented as of this encounter Progress Notes * Maria Eugenia Cifuentes M.D. - 04/16/2009 7:08 AM CST Eye General CHIEF COMPLAINT Decreased vision, left eye HISTORY OF PRESENT ILLNESS Patient is here for follow up Proliferative Diabetic Retinopathy both eyes, Cystoid Macular Edema both eyes. Patient notes decreased vision, left eye, x 1 month, constant, worse with low blood sugarsand in brighter lights. Notes black wavy lace, left eye, x 1 week, constant. Denies flashes and diplopia. Patient denies ocular pain. Blood sugars were 122 this morning and A1C from 04/15/09 is 5.5 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 #2 CME both eyes s/p preservative-free intravitreal triamcinolone LE 03/16/07 and RE 03/30/07 CME resolved s/p preservative-free intravitreal triamcinolone LE 07/13/07, 12/05 #3 Cataract right eye will see Dr. Mcclellan when ready to have surgery. #4 Pseudophakia left eye #5 History of ERM left eye #6 Intravitreal/ Intraretinal hemorrhages, right eye had NVD, despite maximal PRP s/p avastin injection, right eye 12/04: NVD resolved s/p PPVx Rt 05/06 #7 vitreous hemorrhage left eye started 04/16/09 OCT 12/05 Right eye: shows trace cystic changes 01/05 Left eye: shows CME. ERM 04/07 Left eye: 1109 FA results: right eye: no NV; PRP left eye: NVD superiorly; mild vitreous heme; CME; large area of capillary nonperfusion temporally;PRP 04/07 Color photos consistent with exam. Plan: PRP fill-in left eye. 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 #3 Cataract right eye #4 Pseudophakia left eye #5 History of ERM left eye #6 Intravitreal/ Intraretinal hemorrhages, right eye #7 vitreous hemorrhage left eye CDM Reports - EYEGEN Id: [id number] Status: Fnl documented in this encounter Plan of Treatment Upcoming Encounters Date Type Department Care Team (Late st Contact Info) Description 09/14/2024 11:00 AM CDT Admin Visit Department of Oncology in [place], [place] [address] [place] [address] 09/17/2024 8:00 AM CDT Lab Department of Infusion Therapy in [place], [place] [address] [place] [address] Jenny Vaca M.D. [address] [place] [phone] 09/17/2024 1:30 PM CDT Office Visit Department of Internal Medicine in [place], [place] [address] [place] [phone] Elissa Luo P.A.-C., M.S. [address] [place] [address] 09/18/2024 8:00 AM CDT Clinical Support Department of Oncology in [place], [place] [address] [place] [phone] Blossom Hernandez M.S.W., L.I.C.S.W. [address] [place] [phone] 09/20/2024 10:00 AM CDT Telemedicine Department of Oncology in [place], [place] [address] [place] [phone] Kerrie Vela M.B., B.Ch., M.D. [address] [place] [phone] 09/24/2024 8:30 AM CDT Lab Department of Oncology in [place], [place] [address] [place] [phone] Kerrie Vela M.B., B.Ch., M.D. [address] [place] [phone] 09/24/2024 9:40 AM CDT Office Visit Department of Oncology in [place], [place] [address] [place] [phone] Kerrie Veal M.B., B.Ch., M.D. [address] [place] [phone] 09/24/2024 10:20 AM CDT Education Department of Oncology in [place], [place] [address] [place] [phone] Kerrie Vela M.B., BDuran, MPhuc [address] [place] [phone] 09/24/2024 11:30 AM CDT Appointment [facility], [facility], [facility] [address] [place] [phone] Kerrie Vela M.B., Trevor, M.Cecelia [address] [place] [phone] 09/25/2024 8:30 AM CDT Appointment [facility], [facility], [facility] [address] [place] [phone] Kerrie Vela M.B., BDuran, M.DForegin [address] [place] [phone] 09/26/2024 8:30 AM CDT Appointment [facility], [facility], [facility] [address] [place] [address] Kerrie Vela M.B., B.ChForeign, M.DForeign [address] [place] [phone] 09/28/2024 11:45 AM CDT Lab Department of Oncology in [place], [place] [address] [place] [phone] Kerrie Vela M.B., B.ChForeign, M.Cecelia [address] [place] [phone] 09/28/2024 1:40 PM CDT Office Visit Department of Oncology in [place], [place] [address] [place] [phone] Dawood Ruiz P.A.-C. [address] [place] [phone] 10/01/2024 8:00 AM CDT Appointment [facility], [facility], [facility] [address] [place] [phone] Kerrie Vela M.B., BForeignChForeign, M.DForeign [address] [place] [phone] 10/02/2024 8:00 AM CDT Appointment [facility], [facility], [facility] [address] [place] [phone] Kerrie Vela M.B., B.ChForeign, M.DForeign [address] [place] [phone] 10/03/2024 8:00 AM CDT Appointment [facility], [facility], [facility] [address] [place] [phone] Kerrie Vela M.B., B.ChForeign, M.DForegin [address] [place] [phone] 10/10/2024 6:30 AM CDT Lab Department of Oncology in [place], [place] [address] [place] [phone] Kerrie Vela M.B., B.ChForeign, M.DForeign [address] [place] [phone] 10/10/2024 8:20 AM CDT Office Visit Department of Oncology in [place], [place] [address] [place] [phone] Brittney Stuart M.D. [address] [place] [phone] 10/10/2024 12:30 PM CDT Infusion Department of Oncology in [place], [place] [address] [place] [phone] Kerrie Vela M.B., B.ChForeign, M.D. [address] [place] [phone] 10/12/2024 11:20 AM CDT Office Visit Department of Oncology in [place], [place] [address] [place] [phone] Kerrie Vela M.B., B.Ch., M.D. [address] [place] [phone] 10/17/2024 1:00 PM CDT Office Visit Department of Ophthalmology in [place], [place] [address] [place] [phone] Tomás Mcbride M.D. [address] [place] [phone] 10/23/2024 8:45 AM CDT Lab Department of Oncology in [place], [place] [address] [place] [phone] Kerrie Vela M.B., B.Ch., M.D. [address] [place] [phone] 10/23/2024 11:00 AM CDT Office Visit Department of Oncology in [place], [place] [address] [place] [phone] Kerrie Vela M.B., BDuran, MPhuc [address] [place] [phone] 10/23/2024 11:30 AM CDT Appointment Department of Radiology in [place], [place] [address] [place] [phone] Franny Dutta M.D. [address] [place] [phone] 10/24/2024 7:30 AM CDT Infusion Department of Oncology in [place], [place] [address] [place] [phone] Kerrie Vela M.B., B., MPhuc [address] [place] [phone] 10/24/2024 11:00 AM CDT Appointment Department of Radiation Oncology in [place], [place] [address] [place] [phone] Franny Dutta M.D. [address] [place] [phone] 10/25/2024 11:00 AM CDT Office Visit Department of Oncology in [place], [place] [address] [place] [phone] Kerrie Vela M.B., B., M.DForeign [address] [place] [phone] 11/06/2024 7:00 AM CDT Lab Department of Oncology in [place], [place] [address] [place] [phone] Kerrie Vela M.B., B.ChForeign, M.DForeign [address] [place] [phone] 11/06/2024 9:00 AM CDT Office Visit Department of Oncology in [place], [place] [address] [place] [address] Dawood Ruiz, P.A.-CForeign [address] [place] [phone] 11/06/2024 10:00 AM CDT Infusion Department of Oncology in [place], [place] [address] [place] [phone] Kerrie Vela M.B., B.ChForeign, M.DForeign [address] [place] [phone] 11/20/2024 6:30 AM CDT Lab Department of Laboratory Medicine and Pathology, [facility] in [place], [place] [address] [place] [phone] Kerrie Vela M.B., B.Ch., M.D. [address] [place] [phone] 11/20/2024 8:20 AM CDT Office Visit Department of Oncology in [place], [place] [address] [place] [phone] Dawood Ruiz, P.A.-CForeign [address] [place] [phone] 11/20/2024 9:00 AM CDT Infusion Department of Oncology in [place], [place] [address] [place] [phone] Kerrie Vela M.B., B.ChForeign, M.DForeign [address] [place] [phone] 12/04/2024 8:30 AM CDT Lab Department of Laboratory Medicine and Pathology, [facility], in [place], [place] [address] [place] [phone] Kerrie Vela M.B., B.ChForeign, M.D. [address] [place] [phone] 12/04/2024 10:20 AM CDT Office Visit Department of Oncology in [place], [place] [address] [place] [phone] Kerrie Vela M.B., B.ChForeign, M.D. [address] [place] [phone] 12/04/2024 11:00 AM CDT Infusion Department of Oncology in [place], [place] [address] [place] [phone] Kerrie Vela M.B., B.Ch., M.D. [address] [place] [phone] documented as of this encounter Visit Diagnoses Not on filedocumented in this encounter Additional Health Concerns Infection Onset Date Last Indicated Resolved Time COVID19 Pending 09/25/2019 09/25/2019 09/26/2019 1 :51 AM CDT COVID19 Pending 11/08/2019 11/08/2019 11/09/2019 1 :40 AM CDT COVID19 Pending 12/20/2019 12/20/2019 12/21/2019 1 1:51 AM CDT Protective Environment 02/21/2023 02/21/202305/08 5:44 AM CREDENTIALING MANAGER Protective Environment 05/11/2023 05/11/202306/13 6:17 AM CREDENTIALING MANAGER Protective Environment 06/27/2023 06/27/202310/15 5:30 AM CDT Protective Environment 10/28/2023 10/28/202306/255 5:58 AM CREDENTIALING MANAGER Protective Environment 07/05/2024 07/05/202409/02 6:26 AM CDT documented as of this encounter Care Teams Supervisor Shuttle Fitting Relationship Specialty Start Date End Date Jenny Vaca M.D. [address] [place] [phone] PCP - General 11/11/16 documented as of this encounter
--- OUTSIDE RECORDS SUMMARY | 2024-09-13 12:38 | XMS_ITS | Encounter Summary ---
Author Organization [facility] Address [address] [place] [address] Care Team Providers Care Asbestos Wire Finisher Name Role Phone Jenny Vaca M.D. Primary Care Provider [phone]- [phone] Encounter Details Date Type Department Care Team (Late st Contact Info) Description 01/20/2010 Historical Ophthalmology RST OPH Maria Eugenia Cifuentes M.D. [address] [place] [address] Social History Tobacco Use Types Packs/Day Years Used Date Smoking Tobacco: Never Assessed Comments Unknown Sex and Gender Information Value Date Recorded Sex Assigned at Not on file Legal Sex Female 8:27 AM MUSEUM REGISTRAR Gender Identity Female 04/06/2017 8:58 AM MUSEUM REGISTRAR Sexual Orientation Straight 04/06/2017 8: 58 AM MUSEUM REGISTRAR documented as of this encounter Progress Notes * Maria Eugenia Cifuentes M.D. - 01/20/2010 7:43 AM CDT Eye General CHIEF COMPLAINT 2 month follow up; blurred vision; both eyes; x 8 months; constantly; symptoms are minimal HISTORY OF PRESENT ILLNESS This is a 64 year old female here for a 2 month follow up. She has PDR both eyes; CME both eyes; rubeosis left eye; cataract right eye; intravitreal/intraretinal hemorrhages, right eye and vitreous hemorrhage left eye - resolved. Patient has not noticed any changes in vision since last visit. Blurred vision; both eyes; x 8 months; constantly; symptoms are minimal. Floaters alone; left eye; x 7 months ; on and off. Patient denies ocular pain, flashes of light, and diplopia. IMPRESSION / REPORT / PLAN #1 PDR [...] as May 2009 #3 Cataract right eye may proceed with [...] OCT both. 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 #3 Cataract right eye #4 Pseudophakia left eye #5 s/p membrane peel left eye #6 Intravitreal/ Intraretinal hemorrhages, right eye #7 vitreous hemorrhage left eye - resolved CDM Reports - EYEGEN Id: [id number] Status: Fnl documented in this encounter Plan of Treatment Upcoming Encounters Date Type Department Care Team (Late st Cornelio Info) Description 09/14/2024 11:00 AM CDT Admin Visit Department of Oncology in [place], [place] [address] [place] [phone] 09/17/2024 8:00 AM CDT Lab Department of Infusion Therapy in [place], [place] [address] [phone] Jenny Vaca M.D. [address] [address] 09/17/2024 1:30 PM CDT Office Visit Department of Internal Medicine in [place], [place] [address] [address] Elissa Luo P.A.-C., M.S. [address] [address] 09/18/2024 8:00 AM CDT Clinical Support Department of Oncology in [place], [place] [address] [place] [address] Blossom Hernandez, M.S.W., L.I.C.S.W. [address] [place] [phone] 09/20/2024 10:00 AM CDT Telemedicine Department of Oncology in [place], [place] [address] [place] [address] Kerrie Vela M.B., B.Ch., M.D. [address] [place] [phone] 09/24/2024 8:30 AM CDT Lab Department of Oncology in [place], [place] [address] [place] [address] Kerrie Vela M.B., B.Ch., M.D. [address] [place] [phone] 09/24/2024 9:40 AM CDT Office Visit Department of Oncology in [place], [place] [address] [place] [address] Kerrie Vela M.B., Trevor, MPhuc [address] [place] [phone] 09/24/2024 10:20 AM CDT Education Department of Oncology in [place], [place] [address] [place] [phone] Kerrie Vela M.B., Trevor, MPhuc [address] [place] [phone] 09/24/2024 11:30 AM CDT Appointment [facility], [facility], [facility] [address] [place] [phone] Kerrie Vela M.B., Trevor, MPhuc [address] [place] [phone] 09/25/2024 8:30 AM CDT Appointment [facility], [facility], [facility] [address] [place] [phone] Kerrie Vela M.B., Trevor, MPhuc [address] [place] [phone] 09/26/2024 8:30 AM CDT Appointment [facility], [facility], [facility] [address] [place] [phone] Kerrie Vela M.B., Trevor, MPhuc [address] [place] [phone] 09/28/2024 11:45 AM CDT Lab Department of Oncology in [place], [place] [address] [place] [phone] Kerrie Vela M.B., B., M.DForeign [address] [place] [phone] 09/28/2024 1:40 PM CDT Office Visit Department of Oncology in [place], [place] [address] [place] [phone] Dawood Ruiz P.A.-C. [address] [place] [phone] 10/01/2024 8:00 AM CDT Appointment [facility], [facility], [facility] [address] [place] [phone] Kerrie Vela M.B., B., M.DForeign [address] [place] [phone] 10/02/2024 8:00 AM CDT Appointment [facility], [facility], [facility] [address] [place] [phone] Kerrie Vela M.B., B., M.DForeign [address] [place] [phone] 10/03/2024 8:00 AM CDT Appointment [facility], [facility], [facility] [address] [place] [phone] Kerrie Vela M.B., B.Alin [address] [place] [phone] 10/10/2024 6:30 AM CDT Lab Department of Oncology in [place], [place] [address] [place] [phone] Kerrie Vela M.B., B., M.Cecelia [address] [place] [phone] 10/10/2024 8:20 AM CDT Office Visit Department of Oncology in [place], [place] [address] [place] [phone] Brittney Stuart M.D. [address] [place] [phone] 10/10/2024 12:30 PM CDT Infusion Department of Oncology in [place], [place] [address] [place] [phone] Kerrie Vela M.B., B., M.D. [address] [place] [phone] 10/12/2024 11:20 AM CDT Office Visit Department of Oncology in [place], [place] [address] [place] [phone] Kerrie Vela M.B., B., M.DForeign [address] [place] [phone] 10/17/2024 1:00 PM CDT Office Visit Department of Ophthalmology in [place], [place] [address] [place] [address] Tomás Mcbride M.D. [address] [place] [address] 10/23/2024 8:45 AM CDT Lab Department of Oncology in [place], [place] [address] [place] [phone] Kerrie Vela M.B., Trevor, MPhuc [address] [place] [phone] 10/23/2024 11:00 AM CDT Office Visit Department of Oncology in [place], [place] [address] [place] [phone] Kerrie Vela M.B., Trevor, MPhuc [address] [place] [phone] 10/23/2024 11:30 AM CDT Appointment Department of Radiology in [place], [place] [address] [place] [phone] Franny Dutta M.D. [address] [place] [phone] 10/24/2024 7:30 AM CDT Infusion Department of Oncology in [place], [place] [address] [place] [phone] Kerrie Vela M.B., BDuran, MPhuc [address] [place] [phone] 10/24/2024 11:00 AM CDT Appointment Department of Radiation Oncology in [place], [place] [address] [place] [phone] Franny Dutta M.D. [address] [place] [phone] 10/25/2024 11:00 AM CDT Office Visit Department of Oncology in [place], [place] [address] [place] [phone] Kerrie Vela M.B., BDuran, M.Cecelia [address] [place] [phone] 11/06/2024 7:00 AM CDT Lab Department of Oncology in [place], [place] [address] [place] [address] Kerrie Vela M.B., BDuran, M.DForeign [address] [place] [phone] 11/06/2024 9:00 AM CDT Office Visit Department of Oncology in [place], [place] [address] [place] [address] Dawood Ruiz, P.A.-CForeign [address] [place] [phone] 11/06/2024 10:00 AM CDT Infusion Department of Oncology in [place], [place] [address] [place] [address] Kerrie Vela M.B., BDuran, M.DForeign [address] [place] [phone] 11/20/2024 6:30 AM CDT Lab Department of Laboratory Medicine and Pathology, [facility] in [place], [place] [address] [place] [address] Kerrie Vela M.B., Trevor, M.DForeign [address] [place] [phone] 11/20/2024 8:20 AM CDT Office Visit Department of Oncology in [place], [place] [address] [place] [address] Dawood Ruiz, P.A.-CForeign [address] [place] [phone] 11/20/2024 9:00 AM CDT Infusion Department of Oncology in [place], [place] [address] [place] [phone] Kerrie Vela M.B., B.Ch., M.D. [address] [place] [phone] 12/04/2024 8:30 AM CDT Lab Department of Laboratory Medicine and Pathology, [facility], in [place], [place] [address] [place] [phone] Kerrie Vela M.B., B.ChForeign, M.D. [address] [place] [phone] 12/04/2024 10:20 AM CDT Office Visit Department of Oncology in [address] [phone] Kerrie Vela M.B., B.Ch., M.D. [address] [place] [phone] 12/04/2024 11:00 AM CDT Infusion Department of Oncology in [address] [phone] Kerrie Vela M.B., B.Ch., M.D. [address] [place] [phone] documented as of this encounter Visit Diagnoses Not on filedocumented in this encounter Additional Health Concerns Infection Onset Date Last Indicated Resolved Time COVID19 Pending 09/25/2019 09/25/2019 09/26/2019 1 :51 AM CDT COVID19 Pending 11/08/2019 11/08/2019 11/09/2019 1 :40 AM CDT COVID19 Pending 12/20/2019 12/20/201912/21/2019 1 1:51 AM CDT Protective Environment 02/21/2023 02/21/202305/08 5:44 AM MUSEUM REGISTRAR Protective Environment 05/11/2023 05/11/202306/13 6:17 AM MUSEUM REGISTRAR Protective Environment 06/27/2023 06/27/202310/15 5:30 AM CDT Protective Environment 10/28/2023 10/28/202306/25 5:58 AM MUSEUM REGISTRAR Protective Environment 07/05/2024 07/05/202409/02 6:26 AM CDT documented as of this encounter Care Teams Asbestos Wire Finisher Relationship Specialty Start Date End Date Jenny Vaca M.D. NPAria: [phone] [address] [place] [address] PCP - General 11/11/16 documented as of this encounter
--- OUTSIDE RECORDS SUMMARY | 2024-09-13 12:38 | XMS_ITS | Encounter Summary ---
Author Organization [facility] Address [address] [place] [address] Care Team Providers Care Waste Baler Name Role Phone Jenny Vaca M.D. Primary Care Provider [phone]- [phone] Encounter Details Date Type Department Care Team (Late st Contact Info) Description 06/11/2009 Historical Ophthalmology RST OPH Maria Eugenia Cifuentes M.D. [address] [place] [phone] Social History Tobacco Use Types Packs/Day Years Used Date Smoking Tobacco: Never Assessed Comments Unknown Sex and Gender Information Value Date Recorded Sex Assigned at Not on file Legal Sex Female 8:27 AM GRAVITY METER OPERATOR Gender Identity Female 04/06/2017 8:58 AM GRAVITY METER OPERATOR Sexual Orientation Straight 04/06/2017 8: 58 AM GRAVITY METER OPERATOR documented as of this encounter Progress Notes * Maria Eugenia Cifuentes M.D. - 06/11/2009 9:27 AM CST Eye Postoperative MULTI-VISIT DOCUMENT This document contains multiple patient visits and is available for review in Document Viewer. CDM Reports - EYEPO Id: [id number] Status: Fnl documented in this encounter Plan of Treatment Upcoming Encounters Date Type Department Care Team (Late st Contact Info) Description 09/14/2024 11:00 AM CDT Admin Visit Department of Oncology in [place], [place] [address] [place] [phone] 09/17/2024 8:00 AM CDT Lab Department of Infusion Therapy in [place], [place] [address] [phone] Jenny Vaca M.D. [address] [phone] 09/17/2024 1:30 PM CDT Office Visit Department of Internal Medicine in [place], [place] [address] [phone] Elissa Luo, Jen., M.S. [address] [address] 09/18/2024 8:00 AM CDT Clinical Support Department of Oncology in [place], [place] [address] [place] [phone] Blossom Hernandez M.S.W., L.I.C.S.W. [address] [place] [phone] 09/20/2024 10:00 AM CDT Telemedicine Department of Oncology in [place], [place] [address] [place] [phone] Kerrie Vela M.B., B.Ch., M.D. [address] [place] [phone] 09/24/2024 8:30 AM CDT Lab Department of Oncology in [place], [place] [address] [place] [address] Kerrie Vela M.B., BDuran, M.Cecelia [address] [place] [phone] 09/24/2024 9:40 AM CDT Office Visit Department of Oncology in [place], [place] [address] [place] [phone] Kerrie Vela M.B., BForeignChForeign, M.DForeign [address] [place] [phone] 09/24/2024 10:20 AM CDT Education Department of Oncology in [place], [place] [address] [place] [phone] Kerrie Vela M.B., BForeignChForeign, M.DForeign [address] [place] [phone] 09/24/2024 11:30 AM CDT Appointment [facility] [address] [place] [phone] Kerrie Vela M.B., B.ChForeign, M.DForeign [address] [place] [phone] 09/25/2024 8:30 AM CDT Appointment [facility] [place], [facility] [address] [place] [phone] Kerrie Vela M.B., B.ChForeign, M.DForeign [address] [place] [phone] 09/26/2024 8:30 AM CDT Appointment [facility], [facility] [address] [place] [phone] Kerrie Vlea M.B., BDuran, M.DForeign [address] [place] [phone] 09/28/2024 11:45 AM CDT Lab Department of Oncology in [place], [place] [address] [place] [phone] Kerrie Vela M.B., BForeignChForeign, M.DForeign [address] [place] [phone] 09/28/2024 1:40 PM CDT Office Visit Department of Oncology in [place], [place] [address] [place] [phone] Dawood Ruiz P.A.-C. [address] [place] [phone] 10/01/2024 8:00 AM CDT Appointment [facility], [facility] [address] [place] [phone] Kerrie Vela M.B., B.ChForeign, M.DForeign [address] [place] [phone] 10/02/2024 8:00 AM CDT Appointment [facility], [facility], [facility] [address] [place] [phone] Kerrie Vela M.B., B., M.DForeign [address] [place] [phone] 10/03/2024 8:00 AM CDT Appointment [facility], [facility], [facility] [address] [place] [address] Kerrie Vela M.B., BDuran, MPhuc [address] [place] [phone] 10/10/2024 6:30 AM CDT Lab Department of Oncology in [place], [place] [address] [place] [phone] Kerrie Vela M.B., BDuran, M.DForeign [address] [place] [phone] 10/10/2024 8:20 AM CDT Office Visit Department of Oncology in [address] [address] Brittney Stuart M.D. [address] [place] [phone] 10/10/2024 12:30 PM CDT Infusion Department of Oncology in [place], [place] [address] [place] [phone] Kerrie Vela M.B., B., M.D. [address] [place] [phone] 10/12/2024 11:20 AM CDT Office Visit Department of Oncology in [place], [place] [address] [place] [phone] Kerrie Vela M.B., B., M.DForeign [address] [place] [phone] 10/17/2024 1:00 PM CDT Office Visit Department of Ophthalmology in [place], [place] [address] [place] [phone] Tomás Mcbride M.D. [address] [place] [address] 10/23/2024 8:45 AM CDT Lab Department of Oncology in [place], [place] [address] [place] [address] Kerrie Vela M.B., B.ChForeign, M.DForeign [address] [place] [phone] 10/23/2024 11:00 AM CDT Office Visit Department of Oncology in [place], [place] [address] [place] [address] Kerrie Vela M.B., B., M.D. [address] [place] [phone] 10/23/2024 11:30 AM CDT Appointment Department of Radiology in [place], [place] [address] [place] [address] Franny Dutta M.D. [address] [place] [phone] 10/24/2024 7:30 AM CDT Infusion Department of Oncology in [place], [place] [address] [place] [address] Kerrie Vela M.B., B., M.DForeign [address] [place] [phone] 10/24/2024 11:00 AM CDT Appointment Department of Radiation Oncology in [place], [place] [address] [place] [phone] Franny Dutta M.D. [address] [place] [phone] 10/25/2024 11:00 AM CDT Office Visit Department of Oncology in [place], [place] [address] [place] [phone] Kerrie Vela M.B., BDuran, MEllen. [address] [place] [phone] 11/06/2024 7:00 AM CDT Lab Department of Oncology in [place], [place] [address] [place] [phone] Kerrie Vela M.B., BDuran, M.DForeign [address] [place] [phone] 11/06/2024 9:00 AM CDT Office Visit Department of Oncology in [address] [address] Dawood Ruiz P.A.-C. [address] [place] [phone] 11/06/2024 10:00 AM CDT Infusion Department of Oncology in [address] [address] Kerrie Vela M.B., B.Ch., M.DForeign [address] [place] [phone] 11/20/2024 6:30 AM CDT Lab Department of Laboratory Medicine and Pathology, [facility], in [place], [place] [address] [place] [phone] Kerrie Vela M.B., BDuran, M.D. [address] [place] [phone] 11/20/2024 8:20 AM CDT Office Visit Department of Oncology in [address] [place] [address] Dawood Ruiz P.A.-C. [address] [place] [phone] 11/20/2024 9:00 AM CDT Infusion Department of Oncology in [place], [place] [address] [place] [phone] Kerrie Vela M.B., B.ChForeign, M.DForeign [address] [place] [phone] 12/04/2024 8:30 AM CDT Lab Department of Laboratory Medicine and Pathology, [facility] in [address] [phone] Kerrie Vela M.B., B.ChForeign, M.DForeign [address] [place] [phone] 12/04/2024 10:20 AM CDT Office Visit Department of Oncology in [address] [address] Kerrie Vela M.B., B.ChForeign, M.D. [address] [place] [phone] 12/04/2024 11:00 AM CDT Infusion Department of Oncology in [address] [phone] Kerrie Vela M.B., B.Ch., M.D. [address] [place] [phone] documented as of this encounter Visit Diagnoses Not on filedocumented in this encounter Additional Health Concerns Infection Onset Date Last Indicated Resolved Time COVID19 Pending 09/25/2019 09/25/2019 09/26/2019 1 :51 AM CDT COVID19 Pending 11/08/2019 11/08/2019 11/09/2019 1 :40 AM CDT COVID19 Pending 12/20/2019 12/20/2019 12/21/2019 1 1:51 AM CDT Protective Environment 02/21/2023 02/21/202305/08 5:44 AM GRAVITY METER OPERATOR Protective Environment 05/11/2023 05/11/202306/13 6:17 AM GRAVITY METER OPERATOR Protective Environment 06/27/2023 06/27/202310/15 5:30 AM CDT Protective Environment 10/28/2023 10/28/202306/25 5:58 AM GRAVITY METER OPERATOR Protective Environment 07/05/2024 07/05/202409/02 6:26 AM CDT documented as of this encounter Care Teams Waste Baler Relationship Specialty Start Date End Date Jenny Vaca M.D. [address] [place] [phone] PCP - General 11/11/16 documented as of this encounter
--- OUTSIDE RECORDS SUMMARY | 2024-09-13 12:38 | XMS_ITS | Encounter Summary ---
Author Organization [facility] Address [address] [place] [address] Care Team Providers Care Garbage Worker Name Role Phone Jenny Vaca M.D. Primary Care Provider Encounter Details Date Type Department Care Team (Late st Contact Info) Description 02/15/2017 Historical Ophthalmology [facility] Tomás Mcbride M.D. [address] [address] Social History Tobacco Use Types Packs/Day Years Used Date Smoking Tobacco: Every Day Comments Unknown Sex and Gender Information Value Date Recorded Sex Assigned at Not on file Legal Sex Female 8:27 AM BRANCH CONTROLLER Gender Identity Female 04/06/2017 8:58 AM BRANCH CONTROLLER Sexual Orientation Straight 04/06/2017 8: 58 AM BRANCH CONTROLLER documented as of this encounter Progress Notes * Tomás Mcbride M.D. - 02/15/2017 7:49 AM CDT Eye General CHIEF COMPLAINT IOP check HISTORY OF PRESENT ILLNESS Last exam was 1 month ago Pt. denies any changes to the VA, states still seems like there is a film over OD Denies any pain or discomfort with the eyes Using drops as directed IMPRESSION / REPORT / PLAN #1 Glaucoma steroid induced right eye. Improved IOP with prednisolone taper. Labile IOP with IOP this AM consistent with previous. Appears to be stable but given thin corneas this may not represent acceptable pressure range. OCT today with possible decrease in RNFL thickness both eyes. s/p SLT right eye. Good IOP response right eye two months post-op. IOP borderline but probably within target range. Plan: Continue current eye meds without change. F/u IOP two months. III DIAGNOSIS #1 Glaucoma steroid induced right eye. Improved IOP with prednisolone taper. Labile IOP with IOP this AM consistent with previous. Appears to be stable but given thin corneas this may not represent acceptable pressure range. OCT today with possible decrease in RNFL thickness both eyes. CDM Reports - [facility] Id: [id number] Status: Fnl documented in this encounter Plan of Treatment Upcoming Encounters Date Type Department Care Team (Late st Contact Info) Description 09/14/2024 11:00 AM CDT Admin Visit Department of Oncology in [place], [place] [address] [place] [address] 09/17/2024 8:00 AM CDT Lab Department of Infusion Therapy in [place], [place] [address] [phone] Jenny Vaca M.D. [address] [phone] 09/17/2024 1:30 PM CDT Office Visit Department of Internal Medicine in [place], [place] [address] [phone] Elissa Luo P.A.-Hesham., M.S. [address] [phone] 09/18/2024 8:00 AM CDT Clinical Support Department of Oncology in [place], [place] [address] [place] [address] Blossom Hernandez M.SDeep., L.I.C.S.W. [address] [place] [phone] 09/20/2024 10:00 AM CDT Telemedicine Department of Oncology in [place], [place] [address] [place] [phone] Kerrie Vela M.B., BForeignChForeign, M.DForeign [address] [place] [phone] 09/24/2024 8:30 AM CDT Lab Department of Oncology in [place], [place] [address] [place] [phone] Kerrie Vela M.B., BDuran, M.Cecelia [address] [place] [phone] 09/24/2024 9:40 AM CDT Office Visit Department of Oncology in [place], [place] [address] [place] [phone] Kerrie Vela M.B., BDuran, M.DForeign [address] [place] [phone] 09/24/2024 10:20 AM CDT Education Department of Oncology in [place], [place] [address] [place] [phone] Kerrie Vela M.B., B.ChForeign, M.D. [address] [place] [phone] 09/24/2024 11:30 AM CDT Appointment [facility], [facility], Lobby Level [address] [place] [phone] Kerrie Vela M.B., Trevor, MPhuc [address] [place] [phone] 09/25/2024 8:30 AM CDT Appointment [facility], [facility], [address] [phone] Kerrie Vela M.B., BDuran, M.DForeign [address] [place] [phone] 09/26/2024 8:30 AM CDT Appointment [facility], [address] [phone] Kerrie Vela M.B., BDuran, M.DForeign [address] [place] [phone] 09/28/2024 11:45 AM CDT Lab Department of Oncology in [place], [place] [address] [place] [phone] Kerrie Vela M.B., BDuran, M.DForeign [address] [place] [phone] 09/28/2024 1:40 PM CDT Office Visit Department of Oncology in [place], [place] [address] [place] [phone] Dawood Ruiz P.A.-C. [address] [place] [phone] 10/01/2024 8:00 AM CDT Appointment [facility], [facility], [facility] [address] [place] [phone] Kerrie Vela M.B., B.Alin [address] [place] [phone] 10/02/2024 8:00 AM CDT Appointment [facility], [facility], [facility] [address] [place] [phone] Kerrie Vela M.B., B.ChForeign, MPhuc [address] [place] [phone] 10/03/2024 8:00 AM CDT Appointment [facility], [facility], [facility] [address] [place] [phone] Kerrie Vela M.B., B., MPhuc [address] [place] [phone] 10/10/2024 6:30 AM CDT Lab Department of Oncology in [place], [place] [address] [place] [phone] Kerrie Vela M.B., B.ChForeign, M.DForeign [address] [place] [phone] 10/10/2024 8:20 AM CDT Office Visit Department of Oncology in [place], [place] [address] [place] [phone] Brittney Stuart M.D. [address] [place] [phone] 10/10/2024 12:30 PM CDT Infusion Department of Oncology in [place], [place] [address] [place] [phone] Kerrie Vela M.B., B.Ch., M.DForeign [address] [place] [phone] 10/12/2024 11:20 AM CDT Office Visit Department of Oncology in [place], [place] [address] [place] [phone] Kerrie Vela M.B., BDuran, M.D. [address] [place] [phone] 10/17/2024 1:00 PM CDT Office Visit Department of Ophthalmology in [place], [place] [address] [place] [phone] Tomás Mcbride M.D. [address] [place] [phone] 10/23/2024 8:45 AM CDT Lab Department of Oncology in [place], [place] [address] [place] [phone] Kerrie Vela M.B., B., M.D. [address] [place] [phone] 10/23/2024 11:00 AM CDT Office Visit Department of Oncology in [place], [place] [address] [place] [phone] Kerrie Vela M.B., B.Ch., M.D. [address] [place] [phone] 10/23/2024 11:30 AM CDT Appointment Department of Radiology in [place], [place] [address] [place] [phone] Franny Dutta M.D. [address] [place] [phone] 10/24/2024 7:30 AM CDT Infusion Department of Oncology in [place], [place] [address] [place] [phone] Kerrie Vela M.B., BDuran, MPhuc [address] [place] [phone] 10/24/2024 11:00 AM CDT Appointment Department of Radiation Oncology in [place], [place] [address] [place] [phone] Franny Dutta M.D. [address] [place] [phone] 10/25/2024 11:00 AM CDT Office Visit Department of Oncology in [place], [place] [address] [place] [phone] Kerrie Vela M.B., BDuran, M.Cecelia [address] [place] [phone] 11/06/2024 7:00 AM CDT Lab Department of Oncology in [place], [place] [address] [place] [phone] Kerrie Vela M.B., BDuran, MPhuc [address] [place] [phone] 11/06/2024 9:00 AM CDT Office Visit Department of Oncology in [place], [place] [address] [place] [phone] Dawood Ruiz P.A.-C. [address] [place] [address] [phone] 11/06/2024 10:00 AM CDT Infusion Department of Oncology in [place], [place] [address] [place] [phone] Kerrie Vela M.B., B., M.Cecelia [address] [place] [phone] 11/20/2024 6:30 AM CDT Lab Department of Laboratory Medicine and Pathology, [facility] in [place], [place] [address] [place] [phone] Kerrie Vela M.B., B., M.DForeign [address] [place] [phone] 11/20/2024 8:20 AM CDT Office Visit Department of Oncology in [place], [place] [address] [place] [phone] Dawood Ruiz P.A.-C. [address] [place] [phone] 11/20/2024 9:00 AM CDT Infusion Department of Oncology in [place], [place] [address] [place] [phone] Kerrie Vela M.B., B., M.DForeign [address] [place] [phone] 12/04/2024 8:30 AM CDT Lab Department of Laboratory Medicine and Pathology, [facility], in [place], [place] [address] [place] [phone] Kerrie Vela M.B., B., M.D. [address] [place] [phone] 12/04/2024 10:20 AM CDT Office Visit Department of Oncology in [address] [phone] eKrrie Vela M.B., B., M.DForeign [address] [place] [phone] 12/04/2024 11:00 AM CDT Infusion Department of Oncology in [place], [place] [address] [place] [address] Kerrie Vela M.B., Trevor, Alin [address] [place] [address] documented as of this encounter Visit Diagnoses Not on filedocumented in this encounter Additional Health Concerns Infection Onset Date Last Indicated Resolved Time COVID19 Pending 09/25/2019 09/25/2019 09/26/2019 1 :51 AM CDT COVID19 Pending 11/08/2019 11/08/2019 11/09/2019 1 :40 AM CDT COVID19 Pending 12/20/2019 12/20/2019 12/21/2019 1 1:51 AM CDT Protective Environment 02/21/2023 02/21/202305/08 5:44 AM BRANCH CONTROLLER Protective Environment 05/11/2023 05/11/202306/13 6:17 AM BRANCH CONTROLLER Protective Environment 06/27/2023 06/27/202310/15 5:30 AM CDT Protective Environment 10/28/2023 10/28/202306/25 5:58 AM BRANCH CONTROLLER Protective Environment 07/05/2024 07/05/202409/02 6:26 AM CDT Assessment Noted Time PHQ-9 Depression Total Score: 0 12/12/19 16 10:14 AM CDT documented as of this encounter Care Teams Garbage Worker Relationship Specialty Start Date End Date Jenny Vaca M.D. [address] [place] [phone] PCP - General 11/11/16 documented as of this encounter
--- OUTSIDE RECORDS SUMMARY | 2024-09-13 12:38 | XMS_ITS | Encounter Summary ---
Author Organization [facility] Address [address] [place] [address] Care Team Providers Care Fast Food Server Name Role Phone Jenny Vaca M.D. Primary Care Provider [phone] Encounter Details Date Type Department Care Team (Late st Contact Info) Description 08/08/2009 Historical Ophthalmology [facility] O[facility] Maria Eugenia Cifuentes M.D. [address] [place] [phone] Social History Tobacco Use Types Packs/Day Years Used Date Smoking Tobacco: Never Assessed Comments Unknown Sex and Gender Information Value Date Recorded Sex Assigned at Not on file Legal Sex Female 8:27 AM SHOE CASER Gender Identity Female 04/06/2017 8:58 AM SHOE CASER Sexual Orientation Straight 04/06/2017 8: 58 AM SHOE CASER documented as of this encounter Progress Notes * Maria Eugenia Cifuentes M.D. - 08/08/2009 8:29 AM CST Eye Postoperative MULTI-VISIT DOCUMENT This document contains multiple patient visits and is available for review in Document Viewer. CDM Reports - [facility] Id: [id number] Status: Fnl documented in this encounter Plan of Treatment Upcoming Encounters Date Type Department Care Team (Late st Contact Info) Description 09/14/2024 11:00 AM CDT Admin Visit Department of Oncology in [place], [place] [address] [place] [phone] 09/17/2024 8:00 AM CDT Lab Department of Infusion Therapy in [place], [place] [address] [phone] Jenny Vaca M.D. [address] [phone] 09/17/2024 1:30 PM CDT Office Visit Department of Internal Medicine in [place], [place] [address] [phone] Elissa Luo P.A.-C., M.S. [address] [phone] 09/18/2024 8:00 AM CDT Clinical Support Department of Oncology in [place], [place] [address] [place] [phone] Blossom Hernandez M.S.W., L.I.C.S.W. [address] [place] [phone] 09/20/2024 10:00 AM CDT Telemedicine Department of Oncology in [place], [place] [address] [place] [phone] Kerrie Vela M.B., B.Ch., M.D. [address] [place] [phone] 09/24/2024 8:30 AM CDT Lab Department of Oncology in [place], [place] [address] [place] [phone] Kerrie Vela M.B., BDuran, MPhuc [address] [place] [phone] 09/24/2024 9:40 AM CDT Office Visit Department of Oncology in [place], [place] [address] [place] [phone] Kerrie Vela M.B., BForeignChForeign, M.DForeign [address] [place] [phone] 09/24/2024 10:20 AM CDT Education Department of Oncology in [place], [place] [address] [place] [phone] Kerrie Vela M.B., BForeignChForeign, M.DForeign [address] [place] [phone] 09/24/2024 11:30 AM CDT Appointment [facility], [facility] [address] [place] [phone] Kerrie Vela M.B., B.ChForeign, M.DForeign [address] [place] [phone] 09/25/2024 8:30 AM CDT Appointment [facility], [facility] [address] [place] [phone] Kerrie Vela M.B., B.ChForeign, M.DForeign [address] [place] [phone] 09/26/2024 8:30 AM CDT Appointment [facility], [facility] [address] [place] [phone] Kerrie Vela M.B., BDuran, M.DForeign [address] [place] [phone] 09/28/2024 11:45 AM CDT Lab Department of Oncology in [place], [place] [address] [place] [phone] Kerrie Vela M.B., B.ChForeign, M.DForeign [address] [place] [phone] 09/28/2024 1:40 PM CDT Office Visit Department of Oncology in [place], [place] [address] [place] [phone] Dawood Ruiz P.A.-C. [address] [place] [phone] 10/01/2024 8:00 AM CDT Appointment [facility], [address] [phone] Kerrie Vela M.B., B.ChForeign, M.DForeign [address] [place] [phone] 10/02/2024 8:00 AM CDT Appointment [facility], [facility], [facility] [address] [place] [phone] Kerrie Vela M.B., B.ChForeign, M.DForeign [address] [place] [phone] 10/03/2024 8:00 AM CDT Appointment [facility], [facility], Lobby Level [address] [place] [address] Kerrie Vela M.B., BDuran, MPhuc [address] [place] [phone] 10/10/2024 6:30 AM CDT Lab Department of Oncology in [place], [place] [address] [place] [phone] Kerrie Vela M.B., BDuran, M.DForeign [address] [place] [phone] 10/10/2024 8:20 AM CDT Office Visit Department of Oncology in [place], [place] [address] [place] [phone] Brittney Stuart M.D. [address] [place] [phone] 10/10/2024 12:30 PM CDT Infusion Department of Oncology in [place], [place] [address] [place] [phone] Kerrie Vela M.B., B., M.D. [address] [place] [phone] 10/12/2024 11:20 AM CDT Office Visit Department of Oncology in [place], [place] [address] [place] [phone] Kerrie Vela M.B., B., M.DForeign [address] [place] [phone] 10/17/2024 1:00 PM CDT Office Visit Department of Ophthalmology in [place], [place] [address] [place] [phone] Tomás Mcbride M.D. [address] [place] [address] 10/23/2024 8:45 AM CDT Lab Department of Oncology in [place], [place] [address] [place] [address] Kerrie Vela M.B., B., M.DForeign [address] [place] [phone] 10/23/2024 11:00 AM CDT Office Visit Department of Oncology in [place], [place] [address] [place] [address] Kerrie Vela M.B., BDuran, M.D. [address] [place] [phone] 10/23/2024 11:30 AM CDT Appointment Department of Radiology in [place], [place] [address] [place] [address] Franny Dutta M.D. [address] [place] [phone] 10/24/2024 7:30 AM CDT Infusion Department of Oncology in [place], [place] [address] [place] [address] Kerrie Vela M.B., B., M.DForeign [address] [place] [phone] 10/24/2024 11:00 AM CDT Appointment Department of Radiation Oncology in [place], [place] [address] [place] [phone] Franny Dutta M.D. [address] [place] [phone] 10/25/2024 11:00 AM CDT Office Visit Department of Oncology in [place], [place] [address] [place] [phone] Kerrie Vela M.B., BDuran, MPhuc [address] [place] [phone] 11/06/2024 7:00 AM CDT Lab Department of Oncology in [place], [place] [address] [place] [phone] Kerrie Vela M.B., BDuran, M.DForeign [address] [place] [phone] 11/06/2024 9:00 AM CDT Office Visit Department of Oncology in [address] [phone] Dawood Ruiz P.A.-C. [address] [place] [phone] 11/06/2024 10:00 AM CDT Infusion Department of Oncology in [place], [place] [address] [place] [phone] Kerrie Vela M.B., B.ChForeign, M.D. [address] [place] [phone] 11/20/2024 6:30 AM CDT Lab Department of Laboratory Medicine and Pathology, [facility], in [place], [place] [address] [place] [phone] Kerrie Vela M.B., BDuran, M.D. [address] [place] [phone] 11/20/2024 8:20 AM CDT Office Visit Department of Oncology in [address] [place] [address] Dawood Ruiz P.A.-C. [address] [place] [phone] 11/20/2024 9:00 AM CDT Infusion Department of Oncology in [address] [phone] Kerrie eVla M.B., B.ChForeign, M.DForeign [address] [place] [phone] 12/04/2024 8:30 AM CDT Lab Department of Laboratory Medicine and Pathology, [facility] in [address] [phone] Kerrie Vela M.B., B.ChForeign, M.DForeign [address] [place] [phone] 12/04/2024 10:20 AM CDT Office Visit Department of Oncology in [address] [phone] Kerrie Vela M.B., B.ChForeign, M.D. [address] [place] [phone] 12/04/2024 11:00 AM CDT Infusion Department of Oncology in [address] [phone] Kerrie Vela M.B., B.ChForeign, M.DForeign [address] [place] [phone] documented as of this encounter Visit Diagnoses Not on filedocumented in this encounter Additional Health Concerns Infection Onset Date Last Indicated Resolved Time COVID19 Pending 09/25/2019 09/25/2019 09/26/2019 1 :51 AM CDT COVID19 Pending 11/08/2019 11/08/2019 11/09/2019 1 :40 AM CDT COVID19 Pending 12/20/2019 12/20/2019 12/21/2019 1 1:51 AM CDT Protective Environment 02/21/2023 02/21/202305/08 5:44 AM SHOE CASER Protective Environment 05/11/2023 05/11/202306/13 6:17 AM SHOE CASER Protective Environment 06/27/2023 06/27/202310/15 5:30 AM CDT Protective Environment 10/28/2023 10/28/202306/25 5:58 AM SHOE CASER Protective Environment 07/05/2024 07/05/202409/02 6:26 AM CDT documented as of this encounter Care Teams Fast Food Server Relationship Specialty Start Date End Date Jenny Vaca M.D. [address] [place] [phone] PCP - General 11/11/16 documented as of this encounter
--- OUTSIDE RECORDS SUMMARY | 2024-09-13 12:38 | XMS_ITS | Encounter Summary ---
Author Organization [facility] Address [address] [place] [address] Care Team Providers Care Tool Drawing Checker Name Role Phone Jenny Vaca M.D. Primary Care Provider [phone] Encounter Details Date Type Department Care Team (Late st Contact Info) Description 03/15/2011 Historical Ophthalmology RST OPH Maria Eugenia Cifuentes M.D. [address] [place] [phone] Social History Tobacco Use Types Packs/Day Years Used Date Smoking Tobacco: Never Assessed Comments Unknown Sex and Gender Information Value Date Recorded Sex Assigned at Not on file Legal Sex Female 8:27 AM FIELD SUPPORT REP Gender Identity Female 04/06/2017 8:58 AM FIELD SUPPORT REP Sexual Orientation Straight 04/06/2017 8: 58 AM FIELD SUPPORT REP documented as of this encounter Progress Notes * Maria Eugenia Cifuentes M.D. - 03/15/2011 7:21 AM CDT Eye General CHIEF COMPLAINT follow up left eye HISTORY OF PRESENT ILLNESS Light sensitivity; both eyes; x 3 years; slowly progressive. Follow up CME left eye. RWS: feels vision unchanged since last visit. Denies ocular pain. Denies photopsias or floaters. Patient has been doing PF QOD (2 drops on those days). 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; s/p PPV OU -Ha1c 6.8% 01/07; blood pressure stable #2 CME both eyes s/p preservative-free intravitreal [...] eye may proceed with cataract surgery RE if patient desires #4 Pseudophakia left eye #5 s/p membrane [...] after IOP measurement on 04/25/2010; now resolved 03/09 FA results: right eye: PRP; no NV or leakage; non-perfusion temporal macula left eye: PRP; leakage in macula without NV; temporal macula non-perfusion OCT results 02/2011: right eye: ERM; no CME left eye: ERM; loss of outer retinal architecture; trace CME (improved from 03/08 OCT) Plan: inflammation controlled with drops (patient self-tapered, takes PF BID every other day OU) and may continue with this regimen and IOP stable with Cosopt BID OU. will continue to self taper. Leakage in left macula with minimal CME on OCT and stable vision since 03/08 with loss of outer retina on OCT. Areas of capillary non-perfusion unchanged both eyes without NV. 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 #3 Cataract right eye #4 Pseudophakia left eye #5 s/p membrane peel left eye #6 Steroid induced glaucoma #7 Uveitis, left eye #8 corneal abrasion right eye CDM Reports - EYEGEN Id: [id number] Status: Fnl documented in this encounter Plan of Treatment Upcoming Encounters Date Type Department Care Team (Late st Contact Info) Description 09/14/2024 11:00 AM CDT Admin Visit Department of Oncology in [place], [place] [address] [place] [phone] 09/17/2024 8:00 AM CDT Lab Department of Infusion Therapy in [place], [place] [address] [phone] Jenny Vaca M.D. [address] [phone] 09/17/2024 1:30 PM CDT Office Visit Department of Internal Medicine in [place], [place] [address] [phone] Elissa Luo P.A.-C., M.S. [address] [phone] 09/18/2024 8:00 AM CDT Clinical Support Department of Oncology in [place], [place] [address] [place] [phone] Blossom Hernandez M.S.W., L.I.C.S.W. [address] [place] [phone] 09/20/2024 10:00 AM CDT Telemedicine Department of Oncology in [place], [place] [address] [place] [phone] Kerrie Vela M.B., B.Ch., M.D. [address] [place] [phone] 09/24/2024 8:30 AM CDT Lab Department of Oncology in [place], [place] [address] [place] [phone] Kerrie Vela M.B., Trevor, MPhuc [address] [place] [phone] 09/24/2024 9:40 AM CDT Office Visit Department of Oncology in [place], [place] [address] [place] [phone] Kerrie Vela M.B., BDuran, M.DForeign [address] [place] [phone] 09/24/2024 10:20 AM CDT Education Department of Oncology in [place], [place] [address] [place] [phone] Kerrie Vela M.B., BDuran, M.DForeign [address] [place] [phone] 09/24/2024 11:30 AM CDT Appointment [facility], [facility], [facility] [address] [place] [address] Kerrie Vela M.B., B., M.DForeign [address] [place] [phone] 09/25/2024 8:30 AM CDT Appointment [facility], [facility], [facility] [address] [place] [phone] Kerrie Vela M.B., Trevor, M.DForeign [address] [place] [phone] 09/26/2024 8:30 AM CDT Appointment [facility], [facility], [facility] [address] [place] [phone] Kerrie Vela M.B., BDuran, MPhuc [address] [place] [phone] 09/28/2024 11:45 AM CDT Lab Department of Oncology in [place], [place] [address] [place] [phone] Kerrie Vela M.B., BDuran, M.DForeign [address] [place] [phone] 09/28/2024 1:40 PM CDT Office Visit Department of Oncology in [place], [place] [address] [place] [phone] Dawood Ruiz P.A.-C. [address] [place] [phone] 10/01/2024 8:00 AM CDT Appointment [facility] [address] [place] [phone] Kerrie Vela M.B., B., M.DForeign [address] [place] [phone] 10/02/2024 8:00 AM CDT Appointment [facility], [facility], [facility] [address] [place] [phone] Kerrie Vela M.B., BDuran, M.DForeign [address] [place] [phone] 10/03/2024 8:00 AM CDT Appointment [facility] [address] [place] [address] Kerrie Vela M.B., BDuran, MPhuc [address] [place] [phone] 10/10/2024 6:30 AM CDT Lab Department of Oncology in [place], [place] [address] [place] [phone] Kerrie Vela M.B., BDuran, M.DForeign [address] [place] [phone] 10/10/2024 8:20 AM CDT Office Visit Department of Oncology in [place], [place] [address] [place] [phone] Brittney Stuart M.D. [address] [place] [phone] 10/10/2024 12:30 PM CDT Infusion Department of Oncology in [place], [place] [address] [place] [phone] Kerrie Vela M.B., B.ChForeign, M.D. [address] [place] [phone] 10/12/2024 11:20 AM CDT Office Visit Department of Oncology in [place], [place] [address] [place] [phone] Kerrie Vela M.B., B.ChForeign, M.DForeign [address] [place] [phone] 10/17/2024 1:00 PM CDT Office Visit Department of Ophthalmology in [place], [place] [address] [place] [address] Tomás Mcbride M.D. [address] [place] [phone] 10/23/2024 8:45 AM CDT Lab Department of Oncology in [place], [place] [address] [place] [phone] Kerrie Vela M.B., B., M.D. [address] [place] [phone] 10/23/2024 11:00 AM CDT Office Visit Department of Oncology in [place], [place] [address] [place] [phone] eKrrie Vela M.B., B., M.D. [address] [place] [phone] 10/23/2024 11:30 AM CDT Appointment Department of Radiology in [place], [place] [address] [place] [phone] Franny Dutta M.D. [address] [place] [phone] 10/24/2024 7:30 AM CDT Infusion Department of Oncology in [place], [place] [address] [place] [phone] Kerrie Vela M.B., B.ChForeign, M.D. [address] [place] [phone] 10/24/2024 11:00 AM CDT Appointment Department of Radiation Oncology in [place], [place] [address] [place] [phone] Franny Dutta M.D. [address] [place] [phone] 10/25/2024 11:00 AM CDT Office Visit Department of Oncology in [place], [place] [address] [place] [phone] Kerrie Vela M.B., BDuran, M.D. [address] [place] [phone] 11/06/2024 7:00 AM CDT Lab Department of Oncology in [place], [place] [address] [place] [phone] Kerrie Vela M.B., B.ChForeign, M.D. [address] [place] [phone] 11/06/2024 9:00 AM CDT Office Visit Department of Oncology in [address] [phone] Dawood Ruiz P.A.-C. [address] [place] [phone] 11/06/2024 10:00 AM CDT Infusion Department of Oncology in [address] [phone] Kerrie Vela M.B., B.Ch., M.DForeign [address] [place] [phone] 11/20/2024 6:30 AM CDT Lab Department of Laboratory Medicine and Pathology, [facility], in [address] [phone] Kerrie Vela M.B., B.ChForeign, M.D. [address] [place] [phone] 11/20/2024 8:20 AM CDT Office Visit Department of Oncology in [place], [place] [address] [place] [phone] Dawood Ruiz P.A.-C. [address] [place] [phone] 11/20/2024 9:00 AM CDT Infusion Department of Oncology in [place], [place] [address] [place] [phone] Kerrie Vela M.B., B.ChForeign, M.DForeign [address] [place] [phone] 12/04/2024 8:30 AM CDT Lab Department of Laboratory Medicine and Pathology, [facility] in [place], [place] [address] [place] [phone] Kerrie Vela M.B., B.ChForeign, M.DForeign [address] [place] [phone] 12/04/2024 10:20 AM CDT Office Visit Department of Oncology in [place], [place] [address] [place] [phone] Kerrie Vela M.B., B.ChForeign, M.D. [address] [place] [phone] 12/04/2024 11:00 AM CDT Infusion Department of Oncology in [place], [place] [address] [place] [phone] Kerrie Vela M.B., B.ChForeign, M.DForeign [address] [place] [phone] documented as of this encounter Visit Diagnoses Not on filedocumented in this encounter Additional Health Concerns Infection Onset Date Last Indicated Resolved Time COVID19 Pending 09/25/2019 09/25/2019 09/26/2019 1 :51 AM CDT COVID19 Pending 11/08/2019 11/08/2019 11/09/2019 1 :40 AM CDT COVID19 Pending 12/20/2019 12/20/2019 12/21/2019 1 1:51 AM CDT Protective Environment 02/21/2023 02/21/202305/08 5:44 AM FIELD SUPPORT REP Protective Environment 05/11/2023 05/11/202306/13 6:17 AM FIELD SUPPORT REP Protective Environment 06/27/2023 06/27/202310/15 5:30 AM CDT Protective Environment 10/28/2023 10/28/202306/25 5:58 AM FIELD SUPPORT REP Protective Environment 07/05/2024 07/05/202409/02 6:26 AM CDT Assessment Noted Time PHQ-9 Depression Total Score: 4 01/15/20 11 8:41 AM CDT documented as of this encounter Care Teams Tool Drawing Checker Relationship Specialty Start Date End Date Jenny Vaca M.D. NPAria: [phone] [address] [place] [phone] PCP - General 11/11/16 documented as of this encounter
--- OUTSIDE RECORDS SUMMARY | 2024-09-13 12:38 | XMS_ITS ---
Author Organization [facility] Address [address] [place] [address] Care Team Providers Care Business Performance Analyst Name Role Phone Jenny Vaca M.D. Primary Care Provider [phone]- [phone] Active Problems * This document contains information received from the source organization and may not represent a complete record from that organization. 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 Tarlatamab-dlle* Plan Start Date:09/23/2024 Plan Provider:Kerrie Vela M.B., Alin Murray Linked Problems Cancer Lung Small Cell Perso nal HistoryLong Term Current Drug Therapy, 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) Treatment Medications Current Day (Pre-T reatment Tasks - Planned for 09/23/2024) Next Day (Day 1, Cycle 1 - Planned for 09/24/2024) tarlatamab-dlle (Imdelltra) No medications sched uled. tarlatamab-dlle 1 mg in NaCl 0.9% 250 mL IVPB (Imdelltra) Other Current Plans Vascular Access Patency - Implanted Vascular Access Device (IVAD) Venous Non-Valved* Plan Start Date:03/11/2023 Linked Problems Cancer Lung Small Cell Perso nal History Treatment Medications No medications scheduled. Past Treatment and Therapy Plans Flushes/Hydration Plan Name Start Date Discontinue Date Treatment Medications Discontinue Reason Plan Provider VASCULAR ACCESS PATENCY - PERIPHERAL INTRAVENOUS CATHETER AND RAPID INFUSION CATHETER 11/07/2017 09/19/2018 No medications scheduled. Therapy Complete - Hematology / Oncology Treatment 1 Plan Name Start Date Discontinue Date Treatment Medications Discontinue Reason Plan Provider Cycles Lurbinectedin 4 09/12/2024 lurbinectedin (Zepzelca)lurbi nectedin (Zepzelca) IVPB Progression Marlo Diallo M.D. 11 of 12 cycles started Atezolizumab / CARBOplatin / Etoposide 3 12/20/2023 atezolizumab (Tecentriq)atez olizumab (Tecentriq) IVPB (Tecentriq)CARB Oplatin (Paraplatin)CAR BOplatin (Paraplatin) IVPB (BY AUC) in 250 mL (Paraplatin)eto poside (Toposar)etopos cl (Toposar) IVPB (Toposar) Progression Marlo Diallo M.D. 10 of 11 cycles started CARBOplatin AUC 6 / Etoposide ( Lung / Melanoma ) 8 09/19/2018 CARBOplatin (Paraplatin)CAR BOplatin (Paraplatin) IVPB (BY AUC) in 250 mL (Paraplatin)eto poside (Toposar)etopos cl (Toposar) IVPB (Toposar) Therapy Complete Joann Rajan APRN, C.N.P., M.S. 1 of 4 cycles started Past Radiation Episodes * SRT: Left BrainOverview* First Treatment Date Last Treatment Date Treatment Site Technique Goal Episode Provider 09/07/2024 09/07/2024 Left Brain SRT Curative * Linked Problems Malignant Neoplasm Of Lung S mall Cell RightSecondary Malignant Neoplasm Brain Treatment Courses* Course 5xBrainMetSRT 09/07/2024 - 09/07/2024 Treatment Period Fraction Dose Fractions Total Dose Plans Planned [id number] 09/07/2024 - 09/07/2024 2,000 cGy 2 ,000 cGy Reference Points Delivered [id number] 09/07/2024 - 09/07/2024 2,000 cGy * SRT: Left BrainOverview* First Treatment Date Last Treatment Date Treatment Site Technique Goal Episode Provider 06/14/2024 06/20/2024 Left Brain SRT Curative * Linked Problems Malignant Neoplasm Of Lung S mall Cell RightSecondary Malignant Neoplasm Brain Treatment Courses* Course 4xBrainMetSRT 06/14/2024 - 06/20/2024 Treatment Period Fraction Dose Fractions Total Dose Plans Planned [id number] 06/14/2024 - 06/20/2024 600 cGy 3,000 cGy Reference Points Delivered [id number] 06/14/2024 - 06/20/2024 3,000 cGy * SBRT: Right Upper lobe of lungOverview* First Treatment Date Last Treatment Date Treatment Site Technique Goal Episode Provider 03/28/2023 05/16/2023 Right Upper lobe of lung SBRT Curative * Linked Problems Malignant Neoplasm Of Lung S mall Cell Right Treatment Courses* Course 3pLung 04/04/2023 - 05/16/2023 Treatment Period Fraction Dose Fractions Total Dose Plans Planned [id number] 04/29/2023 - 05/16/2023 200 cGy 2,400 cGy [id number] 04/04/2023 - 04/28/2023 200 cGy 6 ,000 cGy Reference Points Delivered dvp [id number] 04/04/2023 - 05/16/2023 6,000 cGy * Course 2xLungSBRT 03/28/2023 - 04/01/2023 Treatment Period Fraction Dose Fractions Total Dose Plans Planned [id number] 03/28/2023 - 04/01/2023 1,000 cGy 5 ,000 cGy Reference Points Delivered [id number] 03/28/2023 - 04/01/2023 5,000 cGy Radiation Treatments (No Episode) * Course 1X Mediast,Rhilm 11/28/2017 - 12/20/2017 Treatment Period Energy Fraction Dose Fractions Total Dose Plans Planned [id number] 11/28/2017 - 12/20/2017 150 cGy 4,500 cGy Reference Points Delivered [id number] 11/28/2017 - 12/20/2017 4,500 cGy Lifetime Dose Tracking * Chemical Lifetime Dose Automatic Entry Manual Entr y Radiation 215.28 mGy 215.28 mGy 0 mGy Fluoro Time 6.898 minutes 6.898 minutes 0 minutes DAP (uGy-m2) 3,082.92 uGy-m2 3,082.92 uGy-m2 0 uGy-m2 Resolved Problems Problem Noted Date Diagnosed Date [...] (10/12/2019): Added automatically from request for surgery [id number] Abnormal Computed Tomography Abdomen 09/11/2019 02/26/2020 Overview (09/11/2019): Added automatically from request for surgery [id number] Pain Sacral 09/10/2019 02/26/2020 Urinary Tract Infection [...] Treatment Completed 04/19/2011 10/01/2017 Abrasion Cornea Initial 03/26/201009/2017 Uveitis 03/24/2010 10/01/2017 Pain Shoulder 07/14/2009 10/01/2017 [...]
--- OUTSIDE RECORDS SUMMARY | 2024-09-13 12:39 | XMS_ITS | Encounter Summary ---
Author Organization [facility] Address [address] [place] [address] Care Team Providers Care Prison Librarian Name Role Phone Jenny Vaca M.D. Primary Care Provider Encounter Details Date Type Department Care Team (Latest Contact Info) Description 08/23/2024 9:27 AM CDT - 08/23/2024 11:59 PM CDT Hospital Encounter Department of Laboratory Medicine in [place], [place] [address] [place] [phone] Mario Maldonado M.D. [address] [place] [address] Dysuria Discharge Disposition: Home or Self Care Social History Tobacco Use Types Packs/Day Years Used Date Smoking Tobacco: Every Day Cigarettes 0.5 60 Passive Smoke Exposure: Current Smokeless Tobacco: Never Alcohol Use Standard Drinks/Week Comments Yes 1 (1 standard drink = 0.6 oz pur e alcohol) 1 beer per night [facility] Utilities Answer Date Recorded In the past 12 months has e [employer], gas, oil, or water [email or web address] threatened to shut off services in your [...] week 09/27/2022 How often do you attend [facility] or yazidism services? More than 4 times per year 09/27/2022 Do you belong to any clubs o r organizations such as mandaeism groups, unions, fraternal or athletic groups, or [...] Answer Date Recorded PHQ-2 Score 0 06/18/[address] [facility] - Occupational Stress Questionnaire Answer [...] your living situation today? 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 [...] Glomerular Filtration Rate (GFR) 30 To 44 ([facility]) Take 1 tablet (25 mg total) by [...] tablet 3 5 06/22/19 26 propylene glycoL ([place] Tears) 0.6 % ophthalmic solution Administer [...] mouth once daily 90 capsule 3 4 ciprofloxacin (Cipro) 500 mg tabletIndications :Urinary Tract Infection Site Not Specified Take 1 tablet (500 mg total) by mouth 2 (two) times a day before morning and evening meals for 7 days. 14 tablet 5 08/25/19 25 nitrofurantoin monohydrate (Macrobid) 100 mg capsuleIndication s:Cystitis Unspecified Without Hematuria Take 1 capsule (100 mg total) by mouth 2 (two) times a day for 7 days. 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 30 tablet 3 4 09/13/19 25 documented as of this encounter Plan of Treatment Upcoming Encounters Date Type Department Care Team (Late st Contact Info) Description 09/14/2024 11:00 AM CDT Admin Visit Department of Oncology in [place], [place] [address] [place] [place] [phone] 09/17/2024 8:00 AM CDT Lab Department of Infusion Therapy in [place], [place] [address] [phone] Jenny Vaca M.D. [address] [phone] 09/17/2024 1:30 PM CDT Office Visit Department of Internal Medicine in [place], [place] [address] [phone] Elissa Luo P.A.-Hesham., M.S. [address] [phone] 09/18/2024 8:00 AM CDT Clinical Support Department of Oncology in [place], [place] [address] [place] [place] [phone] Blossom Hernandez M.S.W., L.I.C.S.W. [address] [place] [phone] 09/20/2024 10:00 AM CDT Telemedicine Department of Oncology in [place], [place] [address] [place] [phone] Kerrie Vela M.B., B.Ch., M.D. [address] [place] [phone] 09/24/2024 8:30 AM CDT Lab Department of Oncology in [place], [place] [address] [place] [place] [phone] Kerrie Vela M.B., BDuran, M.DForeign [address] [place] [phone] 09/24/2024 9:40 AM CDT Office Visit Department of Oncology in [place], [place] [address] [place] [phone] Kerrie Vela M.B., BDuran, M.DForeign [address] [place] [phone] 09/24/2024 10:20 AM CDT Education Department of Oncology in [place], [place] [address] [place] [place] [phone] Kerrie Vela M.B., BForeignChForeign, M.DForeign [address] [place] [phone] 09/24/2024 11:30 AM CDT Appointment [facility], [facility], [facility] 201 [place] [phone] Kerrie Vela M.B., B.ChForeign, M.DForeign [address] [place] [phone] 09/25/2024 8:30 AM CDT Appointment [facility], [facility], [facility] 201 [place] [phone] Kerrie Vela M.B., B.ChForeign, M.DForeign [address] [place] [phone] 09/26/2024 8:30 AM CDT Appointment [facility], [facility], [facility] [address] [place] [phone] Kerrie Vela M.B., BDuran, M.DForeign [address] [place] [phone] 09/28/2024 11:45 AM CDT Lab Department of Oncology in [place], [place] [address] [place] [phone] Kerrie Vela M.B., B.ChForeign, M.DForeign [address] [place] [phone] 09/28/2024 1:40 PM CDT Office Visit Department of Oncology in [place], [place] [address] [place] [phone] Dawood Ruiz P.A.-C. [address] [place] [phone] 10/01/2024 8:00 AM CDT Appointment [facility], [facility], [facility] [address] [place] [phone] Kerrie Vela M.B., B.Ch., M.DForeign [address] [place] [phone] 10/02/2024 8:00 AM CDT Appointment [facility], [facility], [facility] [address] [place] [phone] Kerrie Vela M.B., B.ChForeign, M.DForeign [address] [place] [phone] 10/03/2024 8:00 AM CDT Appointment [facility], [facility], [facility], Lobby Level [address] [place] [address] Kerrie Vela M.B., BDuran, MPhuc [address] [place] [phone] 10/10/2024 6:30 AM CDT Lab Department of Oncology in [place], [place] [address] [place] [phone] Kerrie Vela M.B., B., M.DForeign [address] [place] [phone] 10/10/2024 8:20 AM CDT Office Visit Department of Oncology in [place], [place] [address] [place] [phone] Brittney Stuart M.D. [address] [place] [phone] 10/10/2024 12:30 PM CDT Infusion Department of Oncology in [place], [place] [address] [place] [phone] Kerrie Vela M.B., B.ChForeign, M.D. [address] [place] [phone] 10/12/2024 11:20 AM CDT Office Visit Department of Oncology in [place], [place] [address] [place] [phone] Kerrie Vela M.B., B., M.D. [address] [place] [phone] 10/17/2024 1:00 PM CDT Office Visit Department of Ophthalmology in [place], [place] [address] [place] [address] Tomás Mcbride M.D. [address] [place] [phone] 10/23/2024 8:45 AM CDT Lab Department of Oncology in [place], [place] 200 [place] [address] Kerrie Vela M.B., BDuran, M.DForeign [address] [place] [phone] 10/23/2024 11:00 AM CDT Office Visit Department of Oncology in [place], [place] [address] [place] [place] [phone] Kerrie Vela M.B., B., M.DForeign [address] [place] [phone] 10/23/2024 11:30 AM CDT Appointment Department of Radiology in [place], [place] [address] [place] [phone] Franny Dutta M.D. [address] [place] [phone] 10/24/2024 7:30 AM CDT Infusion Department of Oncology in [place], [place] [address] [place] [place] [phone] Kerrie Vela M.B., BDuran, M.DForeign [address] [place] [phone] 10/24/2024 11:00 AM CDT Appointment Department of Radiation Oncology in [place], [place] [address] [place] [phone] Franny Dutta M.D. [address] [place] [phone] 10/25/2024 11:00 AM CDT Office Visit Department of Oncology in [place], [place] [address] [place] [phone] Kerrie Vela M.B., BDuran, MPhuc [address] [place] [phone] 11/06/2024 7:00 AM CDT Lab Department of Oncology in [place], [place] [address] [place] [place] [phone] Kerrie Vela M.B., BDuran, M.Cecelia [address] [place] [phone] 11/06/2024 9:00 AM CDT Office Visit Department of Oncology in [place], [place] [address] [place] [place] [phone] Dawood Ruiz P.A.-C. [address] [place] [phone] 11/06/2024 10:00 AM CDT Infusion Department of Oncology in [place], [place] [address] [place] [place] [phone] Kerrie Vela M.B., B.Ch., M.DForeign [address] [place] [phone] 11/20/2024 6:30 AM CDT Lab Department of Laboratory Medicine and Pathology, [facility], in [place], [place] [address] [place] [phone] Kerrie Vela M.B., B.ChForeign, M.DForeign [address] [place] [phone] 11/20/2024 8:20 AM CDT Office Visit Department of Oncology in [place], [place] [address] [place] [place] [phone] Dawood Ruiz P.A.-C. [address] [place] [phone] 11/20/2024 9:00 AM CDT Infusion Department of Oncology in [place], [place] [address] [place] [place] [phone] Kerrie Vela M.B., B.Ch., M.D. [address] [place] [phone] 12/04/2024 8:30 AM CDT Lab Department of Laboratory Medicine and Pathology, [facility] in [place], [place] [address] [place] [place] [phone] Kerrie Vela M.B., B.Ch., M.D. [address] [place] [phone] 12/04/2024 10:20 AM CDT Office Visit Department of Oncology in [address] [phone] Kerrie Vela M.B., B.Ch., M.D. [address] [place] [phone] 12/04/2024 11:00 AM CDT Infusion Department of Oncology in [address] [phone] Kerrie Vela M.B., B.Ch., M.D. [address] [place] [phone] documented as of this encounter Procedures Procedure Name Priority Date/Time Associated Diagnosis Comments BACTERIAL CULTURE, AEROBIC + SUSC, URINE Routine 08/23/2024 9:34 AM CDT Dysuria URINALYSIS WITH MICROSCOPIC Routine 08/23/2024 9:34 AM CDT Dysuria documented in this encounter Results * Bacterial Culture, Aerobic + Susceptibility, Urine (08/23/2024 9:34 AM CDT) Urine Culture Urogenital microbiota, susceptibilities not performed per laboratory criteria. 08/24/2024 8:11 AM CDT [facility] Urine (Urine, Midstream) 08/23/2024 9:34 AM CDT 08/23/2024 2:09 PM CDT Comment:Specimen Source Site : Urine Mario Maldonado M.D. LAB MICROBIOLOGY - GENERAL OR DERABLES Final Result [facility] [address] [place] [address], [facility] MKTO [facility] in [place] [address] [place] [address] * (ABNORMAL) Urinalysis, with Microscopic: Urine, Midstream (08/23/2024 9:34 AM CDT) Source Urine, Urine, Midstream 08/23/2024 9:47 AM [...] 8.0 08/23/2024 10:08 AM CDT OW[facility] Specific Grace 1.018 1.001 - 1.035 08/23/2024 10:08 AM [...] M.D. LAB URINE ORDERABLES Final Re sult [facility] [address], [place] [address], [facility] in [place] [address] [place] [address] documented in this encounter Visit Diagnoses Diagnosis Dysuria documented in this encounter Additional Health Concerns Infection Onset Date Last Indicated Resolved Time Protective Environment 07/05/2024 07/05/202409/02 6:26 AM CDT Assessment Noted Time PHQ-9 Depression Total Score: 0 07/04/19 9:20 AM STRAP CUTTING MACHINE OPERATOR documented as of this encounter Care Teams Prison Librarian Relationship Specialty Start Date End Date Jenny Vaca M.D. [address] [place] [address] PCP - General 11/11/16 documented as of this encounter
--- OUTSIDE RECORDS SUMMARY | 2024-09-13 12:39 | XMS_ITS | Encounter Summary ---
Author Organization [facility] Address [address] [place] [address] Care Team Providers Care Clinical Services Professional Name Role Phone Jenny Vaca M.D. Primary Care Provider [phone] Reason for Visit * Reason Onset Date Comments 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 Date change 08/27/2024 Encounter Details Date Type Department Care Team (Latest Contact Info) Description 08/27/2024 Clinical Communication Department of Oncology in [place], [place] [address] [place] [phone] Ankita Trejo R.N. [address] [place] [phone] 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 Date change Social History Tobacco Use Types Packs/Day Years Used Date Smoking Tobacco: Every Day Cigarettes 0.5 60 Passive Smoke Exposure: Current Smokeless Tobacco: Never Alcohol Use Standard Drinks/Week Comments Yes 1 (1 standard drink = 0.6 oz pur e alcohol) 1 beer per night [facility] Utilities Answer Date Recorded In the past 12 months has th e [employer], gas, oil, or water company threatened to [...] How often do you attend chur or yazdanism services? More than 4 times per year 09/27/2022 Do you belong to any clubs o r organizations such as zoroastrian groups, unions, fraternal or athletic groups, or [...] Answer Date Recorded PHQ-2 Score 0 06/18/2024 [facility] - [...] living situation today? I have a [facility] place to live 07/08/2023 Comments No Sex and Gender Information Value Date Recorded Sex Assigned at Not on file Legal Sex Female 8:27 AM GAMING ASSOCIATE Gender Identity Female 04/06/2017 8:58 AM GAMING ASSOCIATE Sexual Orientation Straight 04/06/2017 8: 58 AM GAMING ASSOCIATE documented as of this encounter Miscellaneous Notes * Telephone Encounter - Ankita Trejo R.N. - 08/27/2024 2:36 PM CDT JARED Enrique would like her chemotherapy moved to TuesdayAugust 31. Please reach out to patient with new date and time. Labs and scan can remain as scheduled documented in this encounter Plan of Treatment Upcoming Encounters Date Type Department Care Team (Late st Contact Info) Description 09/14/2024 11:00 AM CDT Admin Visit Department of Oncology in [place], [place] [address] [place] [phone] 09/17/2024 8:00 AM CDT Lab Department of Infusion Therapy in [place], [place] [address] [phone] Jenny Vaca M.D. [address] [phone] 09/17/2024 1:30 PM CDT Office Visit Department of Internal Medicine in [place], [place] [address] [phone] Elissa Luo P.A.-C., M.S. [address] [phone] 09/18/2024 8:00 AM CDT Clinical Support Department of Oncology in [address] [phone] Blossom Hernandez M.S.W., L.I.C.S.W. [address] [place] [phone] 09/20/2024 10:00 AM CDT Telemedicine Department of Oncology in [place], [place] [address] [place] [phone] Kerrie Vela M.B., B.Ch., M.D. [address] [place] [phone] 09/24/2024 8:30 AM CDT Lab Department of Oncology in [place], [place] [address] [place] [phone] Kerrie Vela M.B., BDuran, MPhuc [address] [place] [phone] 09/24/2024 9:40 AM CDT Office Visit Department of Oncology in [place], [place] [address] [place] [phone] Kerrie Vela M.B., BDuran, M.Cecelia [address] [place] [phone] 09/24/2024 10:20 AM CDT Education Department of Oncology in [place], [place] [address] [place] [phone] Kerrie Vela M.B., BDuran, M.DForeign [address] [place] [phone] 09/24/2024 11:30 AM CDT Appointment [facility], [facility], [address] [phone] Kerrie Vela M.B., BDuran, M.DForeign [address] [place] [phone] 09/25/2024 8:30 AM CDT Appointment [facility], [facility], [address] [phone] Kerrie Vela M.B., B., M.DForeign [address] [place] [phone] 09/26/2024 8:30 AM CDT Appointment [facility], [facility], [address] [phone] Kerrie Vela M.B., Trevor, MPhuc [address] [place] [phone] 09/28/2024 11:45 AM CDT Lab Department of Oncology in [place], [place] [address] [place] [phone] Kerrie Vela M.B., Trevor, MPhuc [address] [place] [phone] 09/28/2024 1:40 PM CDT Office Visit Department of Oncology in [place], [place] [address] [place] [phone] Dawood Ruiz P.A.-C. [address] [place] [phone] 10/01/2024 8:00 AM CDT Appointment [facility], [facility] [address] [place] [phone] Kerrie Vela M.B., Trevor, M.DForeign [address] [place] [phone] 10/02/2024 8:00 AM CDT Appointment [facility], [facility], [facility] [address] [place] [address] Kerrie Vela M.B., Trevor, M.DForeign [address] [place] [phone] 10/03/2024 8:00 AM CDT Appointment [facility], [facility], [facility] [address] [place] [phone] Kerrie Vela M.B., BDuran, MForeignDForeign [address] [place] [phone] 10/10/2024 6:30 AM CDT Lab Department of Oncology in [place], [place] [address] [place] [address] Kerrie Vela M.B., B.ChForeign, M.DForeign [address] [place] [phone] 10/10/2024 8:20 AM CDT Office Visit Department of Oncology in [place], [place] [address] [place] [phone] Brittney Stuart M.D. [address] [place] [phone] 10/10/2024 12:30 PM CDT Infusion Department of Oncology in [place], [place] [address] [place] [address] Kerrie Vela M.B., B.Ch., M.DForeign [address] [place] [phone] 10/12/2024 11:20 AM CDT Office Visit Department of Oncology in [place], [place] [address] [place] [phone] Kerrie Vela M.B., B.ChForeign, M.DForeign [address] [place] [phone] 10/17/2024 1:00 PM CDT Office Visit Department of Ophthalmology in [place], [place] [address] [place] [address] Tomás Mcbried M.D. [address] [place] [address] 10/23/2024 8:45 AM CDT Lab Department of Oncology in [place], [place] [address] [place] [address] Kerrie Vela M.B., BDuran, M.DForeign [address] [place] [phone] 10/23/2024 11:00 AM CDT Office Visit Department of Oncology in [place], [place] [address] [place] [address] Kerrie Vela M.B., B., M.Cecelia [address] [place] [phone] 10/23/2024 11:30 AM CDT Appointment Department of Radiology in [place], [place] [address] [place] [address] Franny Dutta M.D. [address] [place] [phone] 10/24/2024 7:30 AM CDT Infusion Department of Oncology in [place], [place] [address] [place] [address] Kerrie Vela M.B., B., M.DForeign [address] [place] [phone] 10/24/2024 11:00 AM CDT Appointment Department of Radiation Oncology in [place], [place] [address] [place] [phone] Franny Dutta M.D. [address] [place] [phone] 10/25/2024 11:00 AM CDT Office Visit Department of Oncology in [place], [place] [address] [place] [address] Kerrie Vela M.B., BDuran, MPhuc [address] [place] [phone] 11/06/2024 7:00 AM CDT Lab Department of Oncology in [place], [place] [address] [place] [address] Kerrie Vela M.B., Trevor, MPhuc [address] [place] [phone] 11/06/2024 9:00 AM CDT Office Visit Department of Oncology in [place], [place] [address] [place] [phone] Dawood Ruiz P.A.-C. [address] [place] [phone] 11/06/2024 10:00 AM CDT Infusion Department of Oncology in [place], [place] [address] [place] [phone] Kerrie Vela M.B., B., M.DForeign [address] [place] [phone] 11/20/2024 6:30 AM CDT Lab Department of Laboratory Medicine and Pathology, [facility] in [place], [place] [address] [place] [phone] Kerrie Vela M.B., B., M.DForeign [address] [place] [phone] 11/20/2024 8:20 AM CDT Office Visit Department of Oncology in [place], [place] [address] [place] [address] Dawood Ruiz P.A.-C. [address] [place] [phone] 11/20/2024 9:00 AM CDT Infusion Department of Oncology in [place], [place] [address] [place] [phone] Kerrie Vela M.B., B.ChForeign, M.DForeign [address] [place] [phone] 12/04/2024 8:30 AM CDT Lab Department of Laboratory Medicine and Pathology, [facility], in [place], [place] [address] [place] [phone] Kerrie Vela M.B., B.ChForeign, M.D. [address] [place] [phone] 12/04/2024 10:20 AM CDT Office Visit Department of Oncology in [address] [phone] Kerrie Vela M.B., B.Ch., M.D. [address] [place] [phone] 12/04/2024 11:00 AM CDT Infusion Department of Oncology in [address] [phone] Kerrie Vela M.B., B.Ch., M.D. [address] [place] [phone] documented as of this encounter Visit Diagnoses Not on filedocumented in this encounter Additional Health Concerns Infection Onset Date Last Indicated Resolved Time Protective Environment 07/05/2024 07/05/202409/02 6:26 AM CDT Assessment Noted Time PHQ-9 Depression Total Score: 0 02/05/20 24 9:20 AM GAMING ASSOCIATE documented as of this encounter Care Teams Clinical Services Professional Relationship Specialty Start Date End Date Jenny Vaca M.D. [address] [place] [phone] PCP - General 11/11/16 documented as of this encounter
--- OUTSIDE RECORDS SUMMARY | 2024-09-13 12:39 | XMS_ITS | Encounter Summary ---
Author Organization [facility] Address [address] [place] [address] Care Team Providers Care Service Operator Name Role Phone Jenny Vaca M.D. Primary Care Provider [phone] Reason for Referral * Outpatient (Routine) - Authorized Specialty Diagnoses / Procedures Referred By Cynthia eagle Referred To Contact Oncology Marlo Diallo M.D. 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 [address] [place] [address] Phone: tel: fax: [facility] Referral ID Status Reason Start Date Expiration Date Visits Re quested Visits Authorized [id number] Closed 08/31/2024 03/02/2026 1 1 Reason for Visit * Reason Comments Follow-up * Outpatient (Routine) - Closed Specialty Diagnoses / Procedures Referred By Cynthia t Referred To Contact Oncology Mario Maldonado M.D. [address] [place] [address] Phone: tel: fax: [facility] Referral ID Status Reason Start Date Expiration Date Visits Re quested Visits Authorized [id number] Closed 08/23/2024 02/22/2026 1 1 Encounter Details Date Type Department Care Team (Late st Contact Info) Description 08/29/2024 4:20 PM CDT Office Visit Department of Oncology in [place], [place] [address], [place] [address] Marlo Diallo M.D. 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) (Primary Dx); Secondary Malignant Neoplasm Brain (HCC); Secondary Malignant Neoplasm Lymph Node (HCC); Anemia Of Chronic Renal Disease; Anemia 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 Induced; Chronic Obstructive Pulmonary Disease (HCC); Chronic Kidney Disease (CKD), Stage 3b Glomerular Filtration Rate (GFR) 30 To 44 (HCC) Social History Tobacco Use Types Packs/Day Years Used Date Smoking Tobacco: Every Day Cigarettes 0.5 60 Passive Smoke Exposure: Current Smokeless Tobacco: Never Tobacco Cessation:Ready to Q uit: Not Asked; Counseling Given: Not Answered Alcohol Use Standard Drinks/Week Comments Yes 1 (1 standard drink = 0.6 oz pur e alcohol) 1 beer per night [facility] Utilities Answer Date Recorded In the past 12 months has [employer], gas, oil, or water [employer] threatened to shut off services in your [...] week 09/27/2022 How often do you attend [facility] or uatsdin services? More than 4 times per year 09/27/2022 Do you belong to any clubs o r organizations such as confucianism groups, unions, fraternal or athletic groups, or [...] Date Recorded PHQ-2 Score 0 06/18/2024 [facility] - Occupational [...] your living situation today? 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 Gender Identity Female 04/06/2017 8:58 AM STRAP FOLDING MACHINE OPERATOR Sexual Orientation Straight 04/06/2017 8: 58 AM STRAP FOLDING MACHINE OPERATOR documented as of this encounter Last Filed Vital Signs Vital Sign Reading Time Taken Comments Blood Pressure 101/43 08/29/2024 4:02 PM CDT Pulse 84 08/29/2024 4:02 PM CDT Temperature 36 C (96.8 F) 08/29/2024 4:02 PM CDT Respiratory Rate - - Oxygen Saturation 97% 08/29/2024 4:02 PM CDT Inhaled Oxygen Concentration - - Weight 59.7 kg (131 lb 9.8 oz) 08/29/2024 4:02 P M CDT Height - - Body Mass Index 21.93 06/22/2024 10:59 AM STRAP FOLDING MACHINE OPERATOR documented in this encounter Progress Notes * Marlo Diallo M.D. - 08/29/2024 4:20 PM CDT PRIMARY CARE PHYSICIAN Jenny Vaca M.D. REASON FOR VISIT History of limited stage small cell lung cancer, 09/2017 Recurrent small-cell lung cancer, 01/2023 HISTORY OF PRESENT ILLNESS Mrs. Goyal is a very pleasant 79 y.o. with a history of small-cell lung cancer as follows: Oncology History 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) 09/2017 Initial Diagnosis Presented to the emergency department at [facility] with a 7 week history of [...] who recommended referral to Radiation Oncology in [place]. Plan to continue lurbinectedin every 3 weeks. [...] evaluate for interval change/resolution of the enhancement. 09/10/2024 - Radiation Therapy Radiation Therapy Treatment Details (Noted on 07/31/2024) Site: Left Brain Technique: No technique specified Goal: Curative Planned Treatment Start Date: 09/10/2024 INTERVAL HISTORY Constitutional: Positive for fatigue. Neurological: Positive for light-headedness. REVIEW OF SYSTEMS Otherwise negative excepted as noted above. The following portions of the patient's history were reviewed and updated as appropriate: allergiesand current medications. PAST MEDICAL HISTORY Past Medical History: Diagnosis Date Abuse Tobacco [...] Diarrhea 03/31/2018 Dry Eye Syndrome Bilateral Emphysema ([facility]) Extraction Cataract Without Intraocular Lens Status Post [...] 05/11/2017 Transient Ischemic Attack Ulcer Peptic 05/19/2017 PAST SURGICAL HISTORY Past Surgical History: Procedure Laterality Date BRONCHOSCOPY FLEXIBLE N/A 02/03/2023 Procedure: BRONCHOSCOPY FLEXIBLE; Surgeon: Luis Hollis M.D.; Location: [facility] ROMB OR CAPSULOTOMY Bilateral CATARACT EXTRACTION Bilateral COLONOSCOPY N/A 09/27/2019 Procedure: COLONOSCOPY; Surgeon: Dorota Jenkins M.D., Ph.D.; Location: [facility] GI LAB ESOPHAGOGASTRODUODENOSCOPY N/A 09/27/2019 Procedure: ESOPHAGOGASTRODUODENOSCOPY; Surgeon: Dorota Jenkins M.D., Ph.D.; Location: [facility] GILAB EYE SURGERY N/A 04/01/2010 >Anterior chamber tap, left eye. EYE SURGERY N/A 07/14/2015 >Selective laser trabeculoplasty, left eye. EYE SURGERY N/A 06/16/2015 >Selective laser trabeculoplasty, right eye. FRACTURE SURGERY Left plates and screws - lower leg INJECTION N/A 04/01/2008 >Intravitreal preservative free Triesence injection, left eye. INJECTION N/A 12/06/2007 >Intravitreal Avastin injection (injection [id number]; Avastin [id number]), right eye. INJECTION N/A 03/16/2007 >Intravitreal preservative free Kenalog injection, left eye. INJECTION N/A 03/30/2007 >Intravitreal preservative free Kenalog injection, right eye. INJECTION N/A 07/25/2008 >Intravitreal preservative free Triesence injection ([id number]), left eye. INJECTION N/A 11/27/2008 >Intravitreal preservative free Triesence injection ([id number]), left eye. INJECTION N/A 07/13/2007 >Intravitreal preservative free Kenalog injection, left eye. INJECTION N/A 06/11/2009 >Intravitreal Avastin injection (injection [id number]; Avastin [id number]), left eye. LAPAROSCOPIC CHOLECYSTECTOMY WITH CHOLANGIOGRAPHY N/A 01/29/2005 Laparoscopy, surgical; cholecystectomy with cholangiography.. PANRETINAL PHOTOCOAGULATION N/A 03/20/2008 >Panretinal photocoagulation, right eye. PANRETINAL PHOTOCOAGULATION N/A 04/16/2009 >Panretinal photocoagulation, left eye. RETINA INJECTIONS Bilateral RETINAL LASER PROCEDURE ROBOTIC-ASSISTED BRONCHOSCOPY N/A 02/03/2023 Procedure: ROBOTIC-ASSISTED BRONCHOSCOPY; Surgeon: Luis Hollis M.D.; Location: [facility] ROMB OR TOTAL ABDOMINAL HYSTERECTOMY WITH BILATERAL SALPINGO-OOPHORECTOMY N/A 03/13/1977 Total abdominal hysterectomy (corpus and cervix), with or without removal of tube(s), with or without removal of ovary(s);.. VITRECTOMY Bilateral VITRECTOMY N/A 2009 >1. A 23-gauge pars plana vitrectomy. 2. Internal limiting membrane peel. VITRECTOMY N/A 05/09/2008 >1. Pars plana vitrectomy. 2. Membrane peel. MEDICATIONS Current Outpatient Medications on File Prior to Visit Medication Sig Dispense Refill albuterol 90 mcg/actuation inhaler Inhale 2 puffs every 4 (four) hours as needed for wheezing or shortness of breath. 54 g 3 amLODIPine (Norvasc) 5 mg tablet Take 1 tablet (5 mg total) by mouth daily. 90 tablet [address] tablet Take 81 mg by mouth daily. benzonatate (Tessalon Perles) 100 mg capsule Take 1 capsule by mouth three times daily as needed for cough 20 capsule 3 blood sugar diagnostic (Contour Next Test Strips) strips USE 1 STRIP TO CHECK GLUCOSE FIVE TIMES DAILY 500 strip 3 blood-glucose meter,continuous (FreeStyle Canelo 3 [place]) 1 each (1 Device total) as directed. 1 each 0 blood-glucose sensor (FreeStyle Canelo 3 Sensor) device 1 each every 14 (fourteen) days. 6 each 3 budesonide (Entocort EC) 3 mg 24 hr capsule Take 2 capsules (6 mg total) by mouth daily with morning meal. 90 capsule 3 codeine-guaiFENesin (Robitussin AC) 10-100 mg/5 mL liquid Take 5 mL by mouth every 8 (eight) hours as needed for cough. 237 mL 1 dicyclomine (BentyL) 10 mg capsule Take 1 capsule (10 mg total) by mouth 4 (four) times a day as needed (abdominal pain or cramps). 30 capsule 3 diphenhydrAMINE (BenadryL) 50 mg capsule Take 1 capsule (50 mg) 1 hour prior to exam. 1 capsule 0 diphenoxylate-atropine (LomotiL) 2.5-0.025 mg per tablet TAKE 1 TABLET BY MOUTH 4 TIMES DAILY NEEDED FOR DIARRHEA 30 tablet 0 estradioL (Estrace) 0.1 mg/g (0.01%) vaginal cream Insert 1 g into the vagina 3 (three) times a week. 42.5 g 5 Farxiga 5 mg tablet Take 1 tablet by mouth once daily 90 tablet 3 fluticasone propionate (FLONASE) 50 mcg/actuation nasal spray Administer 2 sprays into each nostrildaily as needed for allergies. furosemide (LASIX) 20 mg tablet Take 1 tablet (20 mg total) by mouth daily as needed (fluid retention). 90 tablet 3 insulin lispro (HumaLOG U-100 Insulin) 100 unit/mL vial Follow sliding scale up to 75 units in 24 hours subcutaneously via insulin pump (DM Type 2 E11.40 Lifetime need A1C 6.1 on 06/13/2024) 60 mL 3 INSULIN PUMP CARTRIDGE SC Inject under the skin. lancets (ACCU-CHEK SOFTCLIX LANCETS) [facility] [employer] Use to test 4 times daily Dx: E11.40 Lifetime need 400 each 3 latanoprost (Xalatan) 0.005 % ophthalmic solution INSTILL 1 DROP INTO EACH EYE AT BEDTIME 7.5 mL 3 loperamide (IMODIUM A-D) 2 mg tablet Take 2 mg by mouth 4 (four) times a day as needed for diarrhea. losartan (Cozaar) 25 mg tablet Take 1 tablet (25 mg total) by mouth daily. 90 tablet 3 methocarbamoL (Robaxin) 500 mg tablet Take 1 tablet (500 mg total) by mouth 3 (three) times a day as needed for muscle spasms. 45 tablet 0 metoprolol tartrate (Lopressor) 25 mg tablet Take 1.5 tablets (37.5 mg total) by mouth 2 (two) times a day. 270 tablet 3 neomycin-polymyxin B-dexameth (Maxitrol) 3.5 mg/g-10,000 unit/g-0.1 % ophthalmic ointment Apply to both eyelids twice a day. 3.5 g 0 omeprazole (PriLOSEC) [address] capsule Take 1 capsule by mouth once daily 90 capsule 3 ondansetron (Zofran) 8 mg tablet Take 1 tablet (8 mg total) by mouth every 8 (eight) hours as needed for nausea or vomiting (unrelieved by prochlorperazine). 30 tablet 3 perfluorohexyloctane, PF, (Miebo) 100 % ophthalmic drops Administer 1 drop into both eyes 4 (four) times a day. 3 mL 11 polyvinyl alcohol/povidone/PF (REFRESH CLASSIC, PF, OPHT) Administer 1 drop into both eyes 4 (four)times a day as needed (Dry eye). pravastatin (PravachoL) 20 mg tablet Take 1 tablet (20 mg total) by mouth daily. 90 tablet 3 prochlorperazine (Compazine) 10 mg tablet Take 1 tablet (10 mg total) by mouth every 6 (six) hours as needed for nausea or vomiting. 30 tablet 3 propylene glycoL (Brandon Meibo Tears) 0.6 % ophthalmic solution Administer 1 drop into both eyes 3 (three) times a day. 5 mL 11 rivaroxaban (Xarelto) 20 mg tablet Take 1 tablet (20 mg total) by mouth daily with dinner. 90 tablet 3 sodium chloride (NEBUSAL) 3 % nebulizer solution Inhale 4 mL by nebulization 2 (two) times a day asneeded for cough. 750 mL 11 tiotropium (Spiriva Respimat) 2.5 mcg/actuation inhaler Inhale 2 puffs daily. 12 g 11 triamcinolone (KENALOG) 0.1 % cream Vitamin D3 25 mcg (1,000 unit) capsule Take 1 capsule by mouth once daily 90 capsule 3 HYDROcodone-acetaminophen (Avon) 5-325 mg per tablet Take 1 tablet by mouth every 6 (six) hours asneeded for severe pain or score 7-10 of 10 Indication: Chronic Pain/Nonacute Pain. 30 tablet 0 No current facility-administered medications on file prior to visit. ALLERGIES Allergies Allergen Reactions Gadolinium-Containing Contrast Media Rash Patient received contrast twice in one day and had flushing on her chest 30 minutes after [employer] Pollen Itching HEALTH MAINTENANCE Health Maintenance Topic Date Due Hepatitis B Vaccines (1 of 3 - Risk 3-dose series) Never done RSV vaccine - (32-36 weeks) or 60+ years (1 - 1-dose 75+ series) Never done Urine Albumin 06/08/2023 COVID-19 Vaccine ( - 2023- season) 2024 Influenza Vaccine (1) 02/28/2024 Visit: Medicare Annual Wellness 07/09/2024 Diabetic Office Visit with Foot Exam 09/21/2024 Hemoglobin A1C 12/12/2024 Diabetes Education 01/09/2025 Tobacco Cessation counseling 03/14/2025 Visit: Chronic Disease, age 18+ 06/18/2025 Dilated Eye Exam 07/23/2025 Creatinine Level (Kidney Function Test) 08/28/2025 Potassium Level 08/28/2025 Sodium Level 08/28/2025 Office Visit for Blood Pressure Check / Re-check 08/29/2025 DTaP,Tdap,and Td Vaccines (5 - Td or Tdap) 05/19/2029 Depression Screening (Annual PHQ-2) Completed Fall Risk Screen (Annual) Completed Pneumococcal vaccine (50+ years) Completed Hepatitis C Screening Completed Zoster Vaccines Completed IPV Vaccines Aged Out HPV Vaccines Aged Out Colorectal Cancer Surveillance Discontinued Mammogram Discontinued FAMILY HISTORY Family History Problem Relation Name Age of Onset Gastric bypass Daughter Heart failure Grandfather Maternal Stroke Grandmother Maternal Alcohol abuse Father Glaucoma Father Hodgkin disease Mother Glaucoma Mother Colon cancer Brother Hypertension Brother Hypertension Sister Phlebitis Sister Lower extremity SOCIAL HISTORY Social History Socioeconomic History Marital [...] I have a steady place to live PHYSICAL EXAMINATION BP (!) 101/43 (BP Location: Right arm, Patient Position: Sitting, Cuff Size: Regular) Pulse 84 Temp 36 ??C (Temporal) Wt 59.7 kg SpO2 97% BMI 21.93 kg/m?? Constitutional Comments: Appears tired HENT Head: Normocephalic and atraumatic. Eyes General: No scleral icterus. Extraocular Movements: Extraocular movements intact. Conjunctiva/sclera: Conjunctivae normal. Pulmonary Effort: Pulmonary effort is normal. Musculoskeletal General: No swelling. Normal range of motion. Cervical back: Normal range of motion. Skin Findings: No lesion or rash. Neurological General: No focal deficit present. Mental Status: She is alert and oriented to person, place, and time. Gait: Gait normal. LABORATORY DATA Lab Results Component Value Date WBC 8.2 08/28/2024 HGB 9.0 (L) 08/28/2024 HCT 28.1 (L) 08/28/2024 MCV 95.3 08/28/2024 PLT 290 08/28/2024 Lab Results Component Value Date NA 137 08/28/2024 CL 104 08/28/2024 CREATININE 1.42 (H) 08/28/2024 EGFR 38 (L) 08/28/2024 BUN 18 08/28/2024 ANIONGAP 12 08/28/2024 GLUCOSE 121 08/28/2024 CALCIUM 8.9 08/28/2024 Lab Results Component Value Date ALT 10 08/28/2024 AST 20 08/28/2024 GGT 79 (H) 01/17/2024 ALKPHOS 114 (H) 08/28/2024 BILITOT 0.3 08/28/2024 RADIOLOGICAL DATA Radiology data reviewed. PET CT Skull to Thigh FDG Narrative: EXAM: PET CT SKULL TO THIGH FDG [...] major fissure is a 7 mm nodule witha SUV max of 3.9 (series 604, image [...] RADIOPHARMACEUTICAL/MEDS: Route: intravenous fludeoxyglucose F 18 injection JAIL (FDG F-18),13.2 millicurie Impression: 1. Since 05/17/2024, increased size, number, [...] the periphery of the right upper lobe. ASSESSMENT Diagnosis Plan 1. 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) Oncology - Medical, lung consult (clinic) 2. Secondary Malignant Neoplasm Brain (HCC) Oncology - Medical, lung consult (clinic) 3. Secondary Malignant Neoplasm Lymph Node (HCC) Oncology - Medical, lung consult (clinic) 4. Anemia Of Chronic Renal Disease 5. Anemia 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 Induced 6. Chronic Obstructive Pulmonary Disease (HCC) 7. Chronic Kidney Disease (CKD), Stage 3b Glomerular Filtration Rate (GFR) 30 To 44 (HCC) Mrs. Goyal is a very pleasant 79 y.o. lady with a history of COPD, diabetes on insulin, atrial fibrillation on rivaroxaban, stage 3 chronic kidney disease, diagnosed with limited stage small-cell lung cancer in October 2017 status post 3 cycles of carboplatin/etoposide with concurrent radiation which she completed in December 2017. She had biopsy-proven recurrent right-sided small-cell lung cancer in 01/2023. Her case was discussed at tumor boards, consensus was to proceed with concurrent chemoradiation with immunotherapy. She started carboplatin, etoposide with atezolizumab in 01/2023, SBRT to lateral RUL nodule in late 02/2023, completed concurrent chemotherapy with proton radiation to rest of lung/mediastinum in 04/2023, course complicated by grade 3 neutropenia, anemia and fatigue. 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 Her most recent brain MRI reported an indeterminate left cerebellar lesion for which she is having an upcoming MRI next week. Her most recent PET-CT is suggestive of progression ofdisease involving both lungs. I had an extensive discussion with Iva regarding her condition in the presence of her daughter Mattie. I went over her scan images with her, informed her of the multifocal progression of disease. She is due for another brain MRI next week for further evaluation of her intracranial disease. Her performance status is currently fair. We discussed options of switching systemic therapy versus consideration of comfort care measures. Options for systemic therapy would be a consideration of tarlatamabversus topotecan. She was extensively counseled on the potential adverse effects of both regimens. She understandably needs more time for consideration of her options, after the encounter she called back and wishes to at least have a conversation with [place] team regarding to her lenvatinib. Otherwise she is scheduled to have a brain MRI by [facility] Onc team next week. She was previously counseled on importance of smoking cessation and availability of cessation counseling. PLAN Pending brain MRI next week Hold lurbinectedin and she will have assessment in [place] for tarlatamab All questions were answered. Total time spent 40 minutes. PATIENT EDUCATION Ready to learn, no apparent learning barriers were identified; learning preferences include listening. Explained diagnosis and treatment plan; patient expressed understanding of the content. documented in this encounter Plan of Treatment Upcoming Encounters Date Type Department Care Team (Late Contact Info) Description 09/14/2024 11:00 AM CDT Admin Visit Department of Oncology in [place], [place] [address] [place] [address] 09/17/2024 8:00 AM CDT Lab Department of Infusion Therapy in [place], [place] [address] [place] [phone] Jenny Vaca M.D. [address] [place] [phone] 09/17/2024 1:30 PM CDT Office Visit Department of Internal Medicine in [place], [place] [address] [place] [address] Elissa Luo P.A.-C., M.S. [address] [phone] 09/18/2024 8:00 AM CDT Clinical Support Department of Oncology in [place], [place] [address] [place] [phone] Blossom Hernandez, M.S.W., L.I.C.S.W. [address] [place] [phone] 09/20/2024 10:00 AM CDT Telemedicine Department of Oncology in [place], [place] [address] [place] [phone] Kerrie Vela M.B., B.Ch., M.D. [address] [place] [phone] 09/24/2024 8:30 AM CDT Lab Department of Oncology in [place], [place] [address] [place] [phone] Kerrie Vela M.B., B.Ch., M.D. [address] [place] [phone] 09/24/2024 9:40 AM CDT Office Visit Department of Oncology in [place], [place] [address] [place] [phone] Kerrie Vela M.B., Trevor, MPhuc [address] [place] [phone] 09/24/2024 10:20 AM CDT Education Department of Oncology in [place], [place] [address] [place] [phone] Kerrie Vela M.B., BDuran, M.DForeign [address] [place] [phone] 09/24/2024 11:30 AM CDT Appointment [facility], [facility], [facility] [address] [place] [phone] Kerrie Vela M.B., Trevor, M.DForeign [address] [place] [phone] 09/25/2024 8:30 AM CDT Appointment [facility], [facility], [facility] [address] [place] [phone] Kerrie Vela M.B., BDuran, M.DForeign [address] [place] [phone] 09/26/2024 8:30 AM CDT Appointment [facility], [facility], [facility] [address] [place] [phone] Kerrie Vela M.B., Jam.ChForeign, M.DForeign [address] [place] [phone] 09/28/2024 11:45 AM CDT Lab Department of Oncology in [place], [place] [address] [place] [phone] Kerrie Vela M.B., BForeignChForeign, MForeignDForeign [address] [place] [phone] 09/28/2024 1:40 PM CDT Office Visit Department of Oncology in [place], [place] [address] [place] [phone] Dawood Ruiz P.A.-C. [address] [place] [phone] 10/01/2024 8:00 AM CDT Appointment [facility], [facility], [facility] [address] [place] [phone] Kerrie Vela M.B., BForeignChForeign, M.DForeign [address] [place] [phone] 10/02/2024 8:00 AM CDT Appointment [facility], [facility], [facility] [address] [place] [phone] Kerrie Vela M.B., B.ChForeign, M.DForeign [address] [place] [phone] 10/03/2024 8:00 AM CDT Appointment [facility], [facility] [address] [place] [phone] Kerrie Vela M.B., B.Ch., M.DForeign [address] [place] [phone] 10/10/2024 6:30 AM CDT Lab Department of Oncology in [place], [place] [address] [place] [phone] Kerrie Vela M.B., BDuran, M.DForeign [address] [place] [phone] 10/10/2024 8:20 AM CDT Office Visit Department of Oncology in [place], [place] [address] [place] [phone] Brittney Stuart M.D. [address] [place] [phone] 10/10/2024 12:30 PM CDT Infusion Department of Oncology in [place], [place] [address] [place] [phone] Kerrie Vela M.B., B., M.DForeign [address] [place] [phone] 10/12/2024 11:20 AM CDT Office Visit Department of Oncology in [place], [place] [address] [place] [phone] Kerrie Vela M.B., B., M.DForeign [address] [place] [phone] 10/17/2024 1:00 PM CDT Office Visit Department of Ophthalmology in [place], [place] [address] [place] [phone] Tomás Mcbride M.D. [address] [place] [phone] 10/23/2024 8:45 AM CDT Lab Department of Oncology in [place], [place] [address] [place] [phone] Kerrie Vela M.B., BDuran, MPhuc [address] [place] [phone] 10/23/2024 11:00 AM CDT Office Visit Department of Oncology in [place], [place] [address] [place] [phone] Kerrie Veal M.B., BDuran, MPhuc [address] [place] [phone] 10/23/2024 11:30 AM CDT Appointment Department of Radiology in [place], [place] [address] [place] [phone] Franny Dutta M.D. [address] [place] [phone] 10/24/2024 7:30 AM CDT Infusion Department of Oncology in [place], [place] [address] [place] [address] Kerrie Vela M.B., BDuran, MPhuc [address] [place] [phone] 10/24/2024 11:00 AM CDT Appointment Department of Radiation Oncology in [place], [place] [address] [place] [phone] Franny Dutta M.D. [address] [place] [phone] 10/25/2024 11:00 AM CDT Office Visit Department of Oncology in [place], [place] [address] [place] [phone] Kerrie Vela M.B., BDuran, MPhuc [address] [place] [phone] 11/06/2024 7:00 AM CDT Lab Department of Oncology in [place], [place] [address] [place] [address] Kerrie Vela M.B., B.ChForeign, M.D. [address] [place] [phone] 11/06/2024 9:00 AM CDT Office Visit Department of Oncology in [place], [place] [address] [place] [phone] Dawood Ruiz, P.A.-CForeign [address] [place] [phone] 11/06/2024 10:00 AM CDT Infusion Department of Oncology in [place], [place] [address] [place] [phone] Kerrie Vela M.B., B.ChForeign, M.D. [address] [place] [phone] 11/20/2024 6:30 AM CDT Lab Department of Laboratory Medicine and Pathology, [facility] in [place], [place] [address] [place] [phone] Kerrie Vela M.B., B.Ch., M.DForeign [address] [place] [phone] 11/20/2024 8:20 AM CDT Office Visit Department of Oncology in [place], [place] [address] [place] [phone] Dawood Ruiz P.A.-CForeign [address] [place] [phone] 11/20/2024 9:00 AM CDT Infusion Department of Oncology in [place], [place] [address] [place] [phone] Kerrie Vela M.B., BDuran, M.DForeign [address] [place] [phone] 12/04/2024 8:30 AM CDT Lab Department of Laboratory Medicine and Pathology, [facility] in [place], [place] [address] [place] [phone] Kerrie Vela M.B., Trevor, M.DForeign [address] [place] [phone] 12/04/2024 10:20 AM CDT Office Visit Department of Oncology in [place], [place] [address] [place] [phone] Kerrie Vela M.B., BDuran, M.DForeign [address] [place] [phone] 12/04/2024 11:00 AM CDT Infusion Department of Oncology in [place], [place] [address] [place] [phone] Kerrie Vela M.B., BDuran, M.DForeign [address] [place] [phone] Scheduled Referrals Name Type Priority Associated Diagnoses Orde r Schedule Oncology - Medical, lung consult (clinic) Outpatient Referral Routine 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) Expected: 09/05/2024, Expires: 11/30/2025 Oncology office visit (clinic) Outpatient Referral Routine Expected: 09/15/2024, Expires: 12/01/2025 documented as of this encounter Visit Diagnoses Diagnosis 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 [address] [phone] PCP - General 11/11/16 documented as of this encounter
--- OUTSIDE RECORDS SUMMARY | 2024-09-13 12:39 | XMS_ITS | Encounter Summary ---
Author Organization [facility] Address [address] [place] [address] Care Team Providers Care Career And Technology Education Teacher Name Role Phone Jenny Vaca M.D. 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 [address] [place] [address] Phone: tel: fax: [facility] Region Referral ID Status Reason Start Date Expiration Date Visits Re quested Visits Authorized [id number] Closed 08/28/2024 11/28/2025 1 1 Encounter Details Date Type Department Care Team (Late st Contact Info) Description 08/28/2024 Orders Only Department of Infusion Therapy in [place], [place] [address] [place] [phone] Kristy Dillon, R.N. [address], [place] [address] Cancer Lung Small Cell Personal History (Primary Dx); Mcc Current Drug Therapy, 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; Malignant Neoplasm Of [...] pur e alcohol) 1 beer per night [facility] [employer] Answer Date Recorded In the past 12 months has e [employer] gas, oil, or water [employer] threatened to shut off services in your [...] often do you attend chur ch or sikhism services? More than 4 times per year [...] Answer Date Recorded PHQ-2 Score 0 06/18/2024 [employer] [facility] Occupat ional Health - Occupational Stress [...] on file Legal Sex Female 8:27 AM WEB ANALYST Gender Identity Female 04/06/2017 8:58 AM WEB ANALYST Sexual Orientation Straight 04/06/2017 8: 58 AM WEB ANALYST documented as of this encounter Plan of Treatment Upcoming Encounters Date Type Department Care Team (Late st Contact Info) Description 09/14/2024 11:00 AM CDT Admin Visit Department of Oncology in [place], [place] [address] [place] [phone] 09/17/2024 8:00 AM CDT Lab Department of Infusion Therapy in [place], [place] [address] [phone] Jenny Vaca M.D. [address] [phone] 09/17/2024 1:30 PM CDT Office Visit Department of Internal Medicine in [place], [place] [address] [phone] Elissa Luo, P.A.-C., M.S. [address] [phone] 09/18/2024 8:00 AM CDT Clinical Support Department of Oncology in [place], [place] [address] [place] [phone] Blossom Hernandez M.S.W., L.I.C.S.W. [address] [place] [address] 09/20/2024 10:00 AM CDT Telemedicine Department of Oncology in [place], [place] [address] [place] [phone] Kerrie Vela M.B., BDuran, M.DForeign [address] [place] [phone] 09/24/2024 8:30 AM CDT Lab Department of Oncology in [place], [place] [address] [place] [phone] Kerrie Vela M.B., B., M.D. [address] [place] [phone] 09/24/2024 9:40 AM CDT Office Visit Department of Oncology in [place], [place] [address] [place] [phone] Kerrie Vela M.B., BDuran, M.DForeign [address] [place] [phone] 09/24/2024 10:20 AM CDT Education Department of Oncology in [place], [place] [address] [place] [phone] Kerrie Vela M.B., B., M.DForeign [address] [place] [phone] 09/24/2024 11:30 AM CDT Appointment [facility], [facility], [address] [place] [address] Kerrie Vela M.B., Trevor, M.D. [address] [place] [phone] 09/25/2024 8:30 AM CDT Appointment [facility], [facility], [facility] [address] [place] [phone] Kerrie Vela M.B., BDuran, MPhuc [address] [place] [phone] 09/26/2024 8:30 AM CDT Appointment [facility], [facility], [address] [phone] Kerrie Vela M.B., BDuran, MPhuc [address] [place] [phone] 09/28/2024 11:45 AM CDT Lab Department of Oncology in [place], [place] [address] [place] [phone] Kerrie Vela M.B., BForeignChForeign, M.DForeign [address] [place] [phone] 09/28/2024 1:40 PM CDT Office Visit Department of Oncology in [place], [place] [address] [place] [phone] Dawood Ruiz P.A.-C. [address] [place] [phone] 10/01/2024 8:00 AM CDT Appointment [facility], [facility], [address] [phone] Kerrie Vela M.B., B.ChForeign, M.DForeign [address] [place] [phone] 10/02/2024 8:00 AM CDT Appointment [facility], [facility], [address] [place] [phone] Kerrie Vela M.B., BDuran, MPhuc [address] [place] [phone] 10/03/2024 8:00 AM CDT Appointment [facility], [facility], [facility] [address] [place] [phone] Kerrie Vela M.B., BDuran, M.Cecelia [address] [place] [phone] 10/10/2024 6:30 AM CDT Lab Department of Oncology in [place], [place] [address] [place] [phone] Kerrie Vela M.B., BDuran, M.DForeign [address] [place] [phone] 10/10/2024 8:20 AM CDT Office Visit Department of Oncology in [place], [place] [address] [place] [phone] Brittney Stuart M.D. [address] [place] [phone] 10/10/2024 12:30 PM CDT Infusion Department of Oncology in [place], [place] [address] [place] [phone] Kerrie Vela M.B., B., M.DForeign [address] [place] [phone] 10/12/2024 11:20 AM CDT Office Visit Department of Oncology in [place], [place] [address] [place] [phone] Kerrie Vela M.B., BDuran, MPhuc [address] [place] [phone] 10/17/2024 1:00 PM CDT Office Visit Department of Ophthalmology in [place], [place] [address] [place] [phone] Tomás Mcbride M.D. [address] [place] [phone] 10/23/2024 8:45 AM CDT Lab Department of Oncology in [place], [place] [address] [place] [phone] Kerrie Vela M.B., Trevor, M.DForeign [address] [place] [phone] 10/23/2024 11:00 AM CDT Office Visit Department of Oncology in [place], [place] [address] [place] [phone] Kerrie Vela M.B., B.ChForeign, M.DForeign [address] [place] [phone] 10/23/2024 11:30 AM CDT Appointment Department of Radiology in [place], [place] [address] [place] [phone] Franny Dutta M.D. [address] [place] [phone] 10/24/2024 7:30 AM CDT Infusion Department of Oncology in [place], [place] [address] [place] [phone] Kerrie Vela M.B., B.ChForeign, M.DForeign [address] [place] [phone] 10/24/2024 11:00 AM CDT Appointment Department of Radiation Oncology in [place], [place] [address] [place] [phone] Franny Dutta M.D. [address] [place] [phone] 10/25/2024 11:00 AM CDT Office Visit Department of Oncology in [place], [place] [address] [place] [phone] Kerrie Vela M.B., B.ChForeign, M.DForeign [address] [place] [phone] 11/06/2024 7:00 AM CDT Lab Department of Oncology in [place], [place] [address] [place] [phone] Kerrie Vela M.B., B.Ch., M.D. [address] [place] [phone] 11/06/2024 9:00 AM CDT Office Visit Department of Oncology in [place], [place] [address] [place] [phone] Dawood Ruiz P.A.-C. [address] [place] [phone] 11/06/2024 10:00 AM CDT Infusion Department of Oncology in [place], [place] [address] [place] [phone] Kerrie Vela M.B., B.Ch., M.D. [address] [place] [phone] 11/20/2024 6:30 AM CDT Lab Department of Laboratory Medicine and Pathology, [facility] in [place], [place] [address] [place] [phone] Kerrie Vela M.B., BDuran, M.DForeign [address] [place] [phone] 11/20/2024 8:20 AM CDT Office Visit Department of Oncology in [place], [place] [address] [place] [phone] Dawood Ruiz P.A.-C. [address] [place] [phone] 11/20/2024 9:00 AM CDT Infusion Department of Oncology in [place], [place] [address] [place] [phone] Kerrie Vela M.B., BDuran, M.DForeign [address] [place] [phone] 12/04/2024 8:30 AM CDT Lab Department of Laboratory Medicine and Pathology, [facility] in [place], [place] [address] [place] [phone] Kerrie Vela M.B., BDuran, M.DForeign [address] [place] [phone] 12/04/2024 10:20 AM CDT Office Visit Department of Oncology in [place], [place] [address] [place] [phone] Kerrie Vela M.B., BDuran, M.DForeign [address] [place] [phone] 12/04/2024 11:00 AM CDT Infusion Department of Oncology in [place], [place] [address] [place] [phone] Kerrie Vela M.B., Alin Murray [address] [place] [phone] Scheduled Orders Name Type Priority Associated Diagnoses Orde r Schedule Perform central electrical wiring lineman: Other (specify); port access for MRI Procedures Routine Cancer Lung Small Cell Personal History Mcc Current Drug Therapy, 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) Expected: 09/03/2024, Expires: 11/27/2025 documented as of this encounter Visit Diagnoses Diagnosis Cancer Lung Small Cell Personal History- Primary 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 [address] [place] [phone] PCP - General 11/11/16 documented as of this encounter
--- OUTSIDE RECORDS SUMMARY | 2024-09-13 12:39 | XMS_ITS | Encounter Summary ---
Author Organization [facility] Address [address] [place] [address] Care Team Providers Care Sound System Installer Name Role Phone Jenny Vaca M.D. Primary Care Provider Encounter Details Date Type Department Care Team (Late st Contact Info) Description 08/23/2024 Orders Only Department of Oncology in [place], [place] [address] [place] [address] Mario Maldonado M.D. [address] [place] [phone] Cystitis Unspecified Without Hematuria (Primary Dx) Social History Tobacco Use Types Packs/Day Years Used Date Smoking Tobacco: Every Day Cigarettes 0.5 60 Passive Smoke Exposure: Current Smokeless Tobacco: Never Alcohol Use Standard Drinks/Week Comments Yes 1 (1 standard drink = 0.6 oz pur e alcohol) 1 beer per night [facility] Utilities Answer Date Recorded In the past 12 months has e electric, gas, oil, or water company [...] How often do you attend chur or scientology services? More than 4 times per year 09/27/2022 Do you belong to any clubs o r organizations such as judaism groups, unions, fraternal or athletic groups, or [...] Answer Date Recorded PHQ-2 Score 0 06/18/2024 [facility] - [...] your living situation today? I [facility] to live 07/08/2023 Comments No Sex and Gender Information Value Date Recorded Sex Assigned at Not on file Legal Sex Female 8:27 AM PHYSICAL PLANT MANAGER Gender Identity Female 04/06/2017 8:58 AM PHYSICAL PLANT MANAGER Sexual Orientation Straight 04/06/2017 8: 58 AM PHYSICAL PLANT MANAGER documented as of this encounter Plan of Treatment Upcoming Encounters Date Type Department Care Team (Late st Contact Info) Description 09/14/2024 11:00 AM CDT Admin Visit Department of Oncology in [place], [place] [address] [place] [address] 09/17/2024 8:00 AM CDT Lab Department of Infusion Therapy in [place], [place] [address] [place] [address] Jenny Vaca M.D. [address] [place] [address] 09/17/2024 1:30 PM CDT Office Visit Department of Internal Medicine in [place], [place] [address] [place] [address] Elissa Luo P.A.-C., M.S. [address] [place] [phone] 09/18/2024 8:00 AM CDT Clinical Support Department of Oncology in [place], [place] [address] [place] [phone] Blossom Hernandez, M.S.W., L.I.C.S.W. [address] [place] [phone] 09/20/2024 10:00 AM CDT Telemedicine Department of Oncology in [place], [place] [address] [place] [phone] Kerrie Vela M.B., B.Ch., M.D. [address] [place] [phone] 09/24/2024 8:30 AM CDT Lab Department of Oncology in [place], [place] [address] [place] [phone] Kerrie Vela M.B., B.Ch., M.D. [address] [place] [phone] 09/24/2024 9:40 AM CDT Office Visit Department of Oncology in [place], [place] [address] [place] [phone] Kerrie Vela M.B., BDuran, MForeignDForeign [address] [place] [phone] 09/24/2024 10:20 AM CDT Education Department of Oncology in [place], [place] [address] [place] [phone] Kerrie Vela M.B., BDuran, M.DForeign [address] [place] [phone] 09/24/2024 11:30 AM CDT Appointment [facility], [facility], [facility] [address] [place] [phone] Kerrie Vela M.B., Trevor, M.DForeign [address] [place] [phone] 09/25/2024 8:30 AM CDT Appointment [facility], [facility], [facility] [address] [place] [phone] Kerrie Vela M.B., BDuran, M.DForeign [address] [place] [phone] 09/26/2024 8:30 AM CDT Appointment [facility], [facility], [facility] [address] [place] [phone] Kerrie Vela M.B., B.ChForeign, M.DForeign [address] [place] [phone] 09/28/2024 11:45 AM CDT Lab Department of Oncology in [place], [place] [address] [place] [phone] Kerrie Vela M.B., BForeignChForeign, M.DForeign [address] [place] [phone] 09/28/2024 1:40 PM CDT Office Visit Department of Oncology in [place], [place] [address] [place] [phone] Dawood Ruiz P.A.-C. [address] [place] [phone] 10/01/2024 8:00 AM CDT Appointment [facility], [facility], [facility] [address] [place] [phone] Kerrie Vela M.B., BDuran, M.DForeign [address] [place] [phone] 10/02/2024 8:00 AM CDT Appointment [facility], [facility], [facility] [address] [place] [phone] Kerrie Vela M.B., B.ChForeign, M.DForeign [address] [place] [phone] 10/03/2024 8:00 AM CDT Appointment [facility], [facility], [facility] [address] [place] [phone] Kerrie Vela M.B., B.ChForeign, M.DForeign [address] [place] [phone] 10/10/2024 6:30 AM CDT Lab Department of Oncology in [place], [place] [address] [place] [phone] Kerrie Vela M.B., B.ChForeign, M.D. [address] [place] [phone] 10/10/2024 8:20 AM CDT Office Visit Department of Oncology in [place], [place] [address] [place] [phone] Brittney Stuart M.D. [address] [place] [phone] 10/10/2024 12:30 PM CDT Infusion Department of Oncology in [place], [place] [address] [place] [phone] Kerrie Vela M.B., B.ChForeign, M.D. [address] [place] [phone] 10/12/2024 11:20 AM CDT Office Visit Department of Oncology in [address] [phone] Kerrie Vela M.B., B.ChForeign, M.D. [address] [place] [phone] 10/17/2024 1:00 PM CDT Office Visit Department of Ophthalmology in [place], [place] [address] [place] [phone] Tomás Mcbride M.D. [address] [place] [phone] 10/23/2024 8:45 AM CDT Lab Department of Oncology in [place], [place] [address] [place] [phone] Kerrie Vela M.B., B.Ch., M.D. [address] [place] [phone] 10/23/2024 11:00 AM CDT Office Visit Department of Oncology in [place], [place] [address] [place] [phone] Kerrie Vela M.B., BDuran, MPhuc [address] [place] [phone] 10/23/2024 11:30 AM CDT Appointment Department of Radiology in [place], [place] [address] [place] [phone] Franny Dutta M.D. [address] [place] [phone] 10/24/2024 7:30 AM CDT Infusion Department of Oncology in [place], [place] [address] [place] [phone] Kerrie Vela M.B., BDuran, MForeignDForeign [address] [place] [phone] 10/24/2024 11:00 AM CDT Appointment Department of Radiation Oncology in [place], [place] [address] [place] [phone] Franny Dutta M.D. [address] [place] [phone] 10/25/2024 11:00 AM CDT Office Visit Department of Oncology in [place], [place] [address] [place] [phone] Kerrie Vela M.B., B., M.D. [address] [place] [phone] 11/06/2024 7:00 AM CDT Lab Department of Oncology in [place], [place] [address] [place] [phone] Kerrie Vela M.B., B.ChForeign, M.DForeign [address] [place] [phone] 11/06/2024 9:00 AM CDT Office Visit Department of Oncology in [place], [place] [address] [place] [phone] Dawood Ruiz P.A.-CForeign [address] [place] [phone] 11/06/2024 10:00 AM CDT Infusion Department of Oncology in [place], [place] [address] [place] [phone] Kerrie Vela M.B., B.ChForeign, M.DForeign [address] [place] [phone] 11/20/2024 6:30 AM CDT Lab Department of Laboratory Medicine and Pathology, [facility], in [place], [place] [address] [place] [phone] Kerrie Vela M.B., B.Ch., M.D. [address] [place] [phone] 11/20/2024 8:20 AM CDT Office Visit Department of Oncology in [place], [place] [address] [place] [phone] Dawood Ruiz P.A.-CForeign [address] [place] [phone] 11/20/2024 9:00 AM CDT Infusion Department of Oncology in [place], [place] [address] [place] [phone] Kerrie Vela M.B., B.ChForeignAlin [address] [place] [phone] 12/04/2024 8:30 AM CDT Lab Department of Laboratory Medicine and Pathology, [facility], in [place], [place] [address] [place] [phone] Kerrie Vela M.B., B.ChForeign, M.Cecelia [address] [place] [phone] 12/04/2024 10:20 AM CDT Office Visit Department of Oncology in [place], [place] [address] [place] [phone] Kerrie Vela M.B., BDuran, MPhuc [address] [place] [phone] 12/04/2024 11:00 AM CDT Infusion Department of Oncology in [place], [place] [address] [place] [phone] Kerrie Vela M.B., B., M.DForeign [address] [place] [phone] documented as of this encounter Visit Diagnoses Diagnosis Cystitis Unspecified Without Hematuria- Primary documented in this encounter Additional Health Concerns Infection Onset Date Last Indicated Resolved Time Protective Environment 07/05/2024 07/05/202409/02 6:26 AM CDT Assessment Noted Time PHQ-9 Depression Total Score: 0 07/04/19 24 9:20 AM PHYSICAL PLANT MANAGER documented as of this encounter Care Teams Sound System Installer Relationship Specialty Start Date End Date Jenny Vaca M.D. [address] [place] [phone] PCP - General 11/11/16 documented as of this encounter
--- OUTSIDE RECORDS SUMMARY | 2024-09-13 12:39 | XMS_ITS | Encounter Summary ---
Author Organization [facility] Address [address] [place] [address] Care Team Providers Care Brain Surgeon Name Role Phone Jenny Vaca M.D. 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 [address] [place] [address] Phone: tel: fax: Department of Oncology in [place], [place] [address] [place] [address] Phone: tel: fax: Referral ID Status Reason Start Date Expiration Date Visits Re quested Visits Authorized [id number] Closed 12/20/2023 12/19/2025 99 99 Encounter Details Date Type Department Care Team (Late st Contact Info) Description 08/28/2024 1:45 PM CDT Lab Department of Infusion Therapy in [place], [place] [address], [place] [phone] Marlo Diallo M.D. 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 More than 4 times per year 09/27/2022 Do you belong to any clubs o r organizations such as gnosticism groups, unions, fraternal or athletic groups, or [...] Date Recorded PHQ-2 Score 0 06/18/2024 [facility] [...] on file Legal Sex Female 8:27 AM SIDEWALK INSPECTOR Gender Identity Female 04/06/2017 8:58 AM SIDEWALK INSPECTOR Sexual Orientation Straight 04/06/2017 8: 58 AM SIDEWALK INSPECTOR documented as of this encounter Plan of Treatment Upcoming Encounters Date Type Department Care Team (Late st Contact Info) Description 09/14/2024 11:00 AM CDT Admin Visit Department of Oncology in [place], [place] [address] [place] [phone] 09/17/2024 8:00 AM CDT Lab Department of Infusion Therapy in [place], [place] [address] [phone] Jenny Vaca M.D. [address] [phone] 09/17/2024 1:30 PM CDT Office Visit Department of Internal Medicine in [place], [place] [address] [phone] Elissa Luo, P.A.-C., M.S. [address] [phone] 09/18/2024 8:00 AM CDT Clinical Support Department of Oncology in [place], [place] [address] [place] [address] Blossom Hernandez, M.S.W., L.I.C.S.W. [address] [place] [phone] 09/20/2024 10:00 AM CDT Telemedicine Department of Oncology in [place], [place] [address] [place] [phone] Kerrie Vela M.B., BDuran, M.Cecelia [address] [place] [phone] 09/24/2024 8:30 AM CDT Lab Department of Oncology in [place], [place] [address] [place] [phone] Kerrie Vela M.B., BDuran, M.D. [address] [place] [phone] 09/24/2024 9:40 AM CDT Office Visit Department of Oncology in [place], [place] [address] [place] [phone] Kerrie Vela M.B., Trevor, M.DForeign [address] [place] [phone] 09/24/2024 10:20 AM CDT Education Department of Oncology in [place], [place] [address] [place] [phone] Kerrie Vela M.B., B.ChForeign, M.D. [address] [place] [phone] 09/24/2024 11:30 AM CDT Appointment [facility], [facility], [facility] [address] [place] [address] Kerrie Vela M.B., BDuran, M.DForeign [address] [place] [phone] 09/25/2024 8:30 AM CDT [facility] [address] [phone] Kerrie Vela M.B., BDuran, M.DForeign [address] [place] [phone] 09/26/2024 8:30 AM CDT Appointment [facility], [facility], [address] [phone] Kerrie Vela M.B., Trevor, M.DForeign [address] [place] [phone] 09/28/2024 11:45 AM CDT Lab Department of Oncology in [place], [place] [address] [place] [phone] Kerrie Vela M.B., B.ChForeign, M.DForeign [address] [place] [phone] 09/28/2024 1:40 PM CDT Office Visit Department of Oncology in [place], [place] [address] [place] [phone] Dawood Ruiz P.A.-C. [address] [place] [phone] 10/01/2024 8:00 AM CDT Appointment [facility], [facility], [address] [phone] Kerrie Vela M.B., B.ChForeign, M.DForeign [address] [place] [phone] 10/02/2024 8:00 AM CDT Appointment [facility], [facility], [address] [phone] Kerrie Vela M.B., BDuran, M.Cecelia [address] [place] [phone] 10/03/2024 8:00 AM CDT Appointment [facility], [facility], [facility], [facility] Level [address] [place] [phone] Kerrie Vela M.B., BDuran, M.DForeign [address] [place] [phone] 10/10/2024 6:30 AM CDT Lab Department of Oncology in [place], [place] [address] [place] [phone] Kerrie Vela M.B., B.ChForeign, M.DForeign [address] [place] [phone] 10/10/2024 8:20 AM CDT Office Visit Department of Oncology in [place], [place] [address] [place] [phone] Brittney Stuart M.D. [address] [place] [phone] 10/10/2024 12:30 PM CDT Infusion Department of Oncology in [place], [place] [address] [place] [phone] Kerrie Vela M.B., B.ChForeign, M.DForeign [address] [place] [phone] 10/12/2024 11:20 AM CDT Office Visit Department of Oncology in [place], [place] [address] [place] [phone] Kerrie Vela M.B., B.ChForeign, MPhuc [address] [place] [phone] 10/17/2024 1:00 PM CDT Office Visit Department of Ophthalmology in [place], [place] [address] [place] [phone] Tomás Mcbride M.D. [address] [place] [phone] 10/23/2024 8:45 AM CDT Lab Department of Oncology in [place], [place] [address] [place] [phone] Kerrie Vela M.B., BDuran, MPhuc [address] [place] [phone] 10/23/2024 11:00 AM CDT Office Visit Department of Oncology in [place], [place] [address] [place] [phone] Kerrie Vela M.B., B.ChForeign, M.DForeign [address] [place] [phone] 10/23/2024 11:30 AM CDT Appointment Department of Radiology in [place], [place] [address] [place] [phone] Franny Dutta M.D. [address] [place] [phone] 10/24/2024 7:30 AM CDT Infusion Department of Oncology in [place], [place] [address] [place] [phone] Kerrie Vela M.B., B.ChForeign, M.DForeign [address] [place] [phone] 10/24/2024 11:00 AM CDT Appointment Department of Radiation Oncology in [place], [place] [address] [place] [phone] Franny Dutta M.D. [address] [place] [phone] 10/25/2024 11:00 AM CDT Office Visit Department of Oncology in [place], [place] [address] [place] [phone] Kerrie Vela M.B., B.ChForeign, M.DForeign [address] [place] [phone] 11/06/2024 7:00 AM CDT Lab Department of Oncology in [address] [phone] Kerrie Vela M.B., B.ChForeign, M.D. [address] [place] [phone] 11/06/2024 9:00 AM CDT Office Visit Department of Oncology in [address] [phone] Dawood Ruiz P.A.-C. [address] [place] [phone] 11/06/2024 10:00 AM CDT Infusion Department of Oncology in [address] [phone] Kerrie Vela M.B., B.Ch., M.D. [address] [place] [phone] 11/20/2024 6:30 AM CDT Lab Department of Laboratory Medicine and Pathology, [facility], in [place], [place] [address] [place] [phone] Kerrie Vela M.B., BForeignChForeign, M.DForeign [address] [place] [phone] 11/20/2024 8:20 AM CDT Office Visit Department of Oncology in [place], [place] [address] [place] [phone] Dawood Ruiz P.A.-C. [address] [place] [phone] 11/20/2024 9:00 AM CDT Infusion Department of Oncology in [place], [place] [address] [place] [phone] Kerrie Vela M.B., B.ChForeign, M.DForeign [address] [place] [phone] 12/04/2024 8:30 AM CDT Lab Department of Laboratory Medicine and Pathology, [facility], in [place], [place] [address] [place] [phone] Kerrie Vela M.B., B.ChForeign, M.DForeign [address] [place] [phone] 12/04/2024 10:20 AM CDT Office Visit Department of Oncology in [address] [phone] Kerrie Vela M.B., B.ChForeign, M.DForeign [address] [place] [phone] 12/04/2024 11:00 AM CDT Infusion Department of Oncology in [address] [phone] Kerrie Vela M.B., Alin Murray [address] [place] [phone] documented as of this encounter Procedures Procedure Name Priority Date/Time Associated Diagnosis Comments CBC WITH DIFFERENTIAL, B Routine 08/28/2024 1:53 PM CDT Cancer Lung Small Cell Personal History Skilled Nursing Current Drug Therapy, 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) MAGNESIUM, S Routine 08/28/2024 1:53 PM CDT Cancer Lung Small Cell Personal History 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 LAB BLOOD ADD-ON Final Result [facility] [address] [place] [address], [facility]AT [facility] in [place] [address] [place] [address] * (ABNORMAL) Comprehensive Metabolic Panel (08/28/2024 1:53 PM CDT) Potassium, P 4.1 3.6 - 5.2 mmol/L [...] Diallo M.D. LAB BLOOD ADD-ON Final Result [facility] [address] [place] [address], [place] [facility] in [place] [address] [place] [address] * (ABNORMAL) CBC with Differential, Blood (08/28/2024 1:53 PM CDT) Hemoglobin 9.0(L) 11.6 - 15.0 g/dL 08/28/2024 [...] 1:53 PM CDT 08/28/2024 2:16 PM CDT us Marlo Diallo M.D. 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 For IVAD NOT accessed or used, flush every 4 weeks after 0.9% preservative-free NaCL flush.Indications:Cancer Lung Small Cell Personal History Given 08/28/2024 2:19 PM CDT 500 Units sodium chloride 0.9 % injection 20 mL 20 mL, intra-catheter, As needed, line care, Starting on Tue08/28/24 at 1355, When IVAD Accessed and in Use: Flush post blood transfusion or post blood sampling.Indications:Cancer Lung Small Cell Personal History Given 08/28/2024 1:55 PM CDT 20 mL documented in this encounter Additional Health Concerns Infection Onset Date Last Indicated Resolved Time Protective Environment 07/05/2024 07/05/202409/02 6:26 AM CDT Assessment Noted Time PHQ-9 Depression Total Score: 0 07/04/19 24 9:20 AM SIDEWALK INSPECTOR documented as of this encounter Care Teams Brain Surgeon Relationship Specialty Start Date End Date Jenny Vaca M.D. [address] [place] [phone] PCP - General 11/11/16 documented as of this encounter
--- OUTSIDE RECORDS SUMMARY | 2024-09-13 12:39 | XMS_ITS | Encounter Summary ---
Author Organization [facility] Address [address] [place] [address] Care Team Providers Care Assistant Bookkeeper Name Role Phone Jenny Vaca M.D. Primary Care Provider [phone] Encounter Details Date Type Department Care Team (Late st Contact Info) Description 08/24/2024 Clinical Communication Department of Infusion Therapy in [place], [place] [address] [address] Tiana Wheat, R.N. Social History Tobacco Use Types Packs/Day Years Used Date Smoking Tobacco: Every Day Cigarettes 0.5 60 Passive Smoke Exposure: Current Smokeless Tobacco: Never Alcohol Use Standard Drinks/Week Comments Yes 1 (1 standard drink = 0.6 oz pur e alcohol) 1 beer per night [facility] Utilities Answer Date Recorded In the past 12 months has [employer], gas, oil, or water Are You a Human threatened to shut off services in your [...] How often do you attend chur or episcopalian services? More than 4 times per year 09/27/2022 Do you belong to any clubs o r organizations such as tenriism groups, unions, fraternal or athletic groups, or [...] Answer Date Recorded PHQ-2 Score 0 06/18/2024 [employer] [place] [facility] - Occupational Stress [...] your living situation today? I [facility] 07/08/2023 Comments No Sex and Gender Information Value Date Recorded Sex Assigned at Not on file Legal Sex Female 8:27 AM HUMAN FACTORS SCIENTIST Gender Identity Female 04/06/2017 8:58 AM HUMAN FACTORS SCIENTIST Sexual Orientation Straight 04/06/2017 8: 58 AM HUMAN FACTORS SCIENTIST documented as of this encounter Miscellaneous Notes * Telephone Encounter - Tiana Wheat, RForiegnN. - 08/24/2024 2:54 PM CDT Jose C Vaca and/or Elissa Iva was feeling lightheaded this morning and came in for a literof fluids. BP when she got here was 77/47 and after the liter it came up to 117/55 when sitting butthen down to 98/48 when standing. We were wondering if she should hold any of her BP medications and for how long? It looks like she takes at least amlodipine and metoprolol. She stated she hadn't taken any today yet. Thanks. 12:06 PM LILY Luo P.A.-C., M.S. yes- she can hold both of those meds today and possibly tomorrow. Is she able to check BP at home? if she is- then I recommend monitoring at home and if blood pressure normalizes then she can resume metoprolol first and then add in amlodipine if needed for ongoing blood pressure elevations to keep her in goal of less than 130/80 12:09 PM Okay i will let her know. She is able to check BP at home. At what BP should she start taking just the metoprolol at? Only if its above the 130/80? 12:13 PM LILY Luo P.A.-C., M.S. no, I would have her start the metoprolol as long as it is over 110/70 or if heart rate is elevatedover 80 because of her afib. that one could even be started tmrw as long as she not too hypotensive Patient was notified of recommendations documented in this encounter Plan of Treatment Upcoming Encounters Date Type Department Care Team (Late st Contact Info) Description 09/14/2024 11:00 AM CDT Admin Visit Department of Oncology in [place], [place] [address] [place] [address] 09/17/2024 8:00 AM CDT Lab Department of Infusion Therapy in [place], [place] [address], [place] [phone] Jenny Vaca M.D. [address] [phone] 09/17/2024 1:30 PM CDT Office Visit Department of Internal Medicine in [place], [place] [address], [place] [phone] Elissa Luo P.A.-C., M.S. [address] [phone] 09/18/2024 8:00 AM CDT Clinical Support Department of Oncology in [place], [place] [address] [place] [phone] Blossom Hernandez M.S.W., L.I.C.S.W. [address] [place] [phone] 09/20/2024 10:00 AM CDT Telemedicine Department of Oncology in [place], [place] [address] [place] [phone] Kerrie Vela M.B., B.Ch., M.D. [address] [place] [phone] 09/24/2024 8:30 AM CDT Lab Department of Oncology in [place], [place] [address] [place] [phone] Kerrie Vela M.B., B.Ch., M.D. [address] [place] [phone] 09/24/2024 9:40 AM CDT Office Visit Department of Oncology in [place], [place] [address] [place] [phone] Kerrie Vela M.B., B.Ch., M.D. [address] [place] [phone] 09/24/2024 10:20 AM CDT Education Department of Oncology in [place], [place] [address] [place] [phone] Kerrie Vela M.B., B.Ch., M.D. [address] [place] [phone] 09/24/2024 11:[address] [facility], [facility], [facility] [address] [place] [phone] Kerrie Vela M.B., B.ChForeign, M.DForeign [address] [place] [phone] 09/25/2024 8:[address] [facility], [facility], [facility] [address] [place] [phone] Kerrie Vela M.B., B.ChForeign, M.D. [address] [place] [phone] 09/26/2024 8:[address] [facility], [facility], [facility] [address] [place] [phone] Kerrie Vela M.B., B.Ch., M.D. [address] [place] [phone] 09/28/2024 11:45 AM CDT Lab Department of Oncology in [place], [place] [address] [place] [phone] Kerrie Vela M.B., B.Ch., M.D. [address] [place] [phone] 09/28/2024 1:40 PM CDT Office Visit Department of Oncology in [place], [place] [address] [place] [phone] Dawood Ruiz P.A.-C. [address] [place] [phone] 10/01/2024 8:[address] [facility], [facility], [facility] [address] [place] [phone] Kerrie Vela M.B., B.ChForeign, M.DForeign [address] [place] [phone] 10/02/2024 8:[address] [facility], [facility], [facility] [address] [place] [phone] Kerrie Vela M.B., B.ChForeign, M.D. [address] [place] [phone] 10/03/2024 8:[address] [facility], [facility], [facility] [address] [place] [phone] Kerrie Vela M.B., B.Ch., M.D. [address] [place] [phone] 10/10/2024 6:30 AM CDT Lab Department of Oncology in [place], [place] [address] [place] [phone] Kerrie Vela M.B., B.Ch., M.D. [address] [place] [phone] 10/10/2024 8:20 AM CDT Office Visit Department of Oncology in [place], [place] [address] [place] [phone] Brittney Stuart M.D. [address] [place] [phone] 10/10/2024 12:30 PM CDT Infusion Department of Oncology in [place], [place] [address] [place] [phone] Kerrie Vela M.B., BDuran, M.D. [address] [place] [phone] 10/12/2024 11:20 AM CDT Office Visit Department of Oncology in [address] [phone] Kerrie Vela M.B., BDuran, M.DForeign [address] [place] [phone] 10/17/2024 1:00 PM CDT Office Visit Department of Ophthalmology in [place], [place] [address] [place] [phone] Tomás Mcbride M.D. [address] [place] [phone] 10/23/2024 8:45 AM CDT Lab Department of Oncology in [address] [phone] Kerrie Vela M.B., B.ChForeign, M.DForeign [address] [place] [phone] 10/23/2024 11:00 AM CDT Office Visit Department of Oncology in [address] [phone] Kerrie Vela M.B., B., M.D. [address] [place] [phone] 10/23/2024 11:30 AM CDT Appointment Department of Radiology in [place], [place] [address] [place] [phone] Franny Dutta M.D. [address] [place] [phone] 10/24/2024 7:30 AM CDT Infusion Department of Oncology in [place], [place] [address] [place] [phone] Kerrie Vela M.B., B.ChForeign, M.DForeign [address] [place] [phone] 10/24/2024 11:00 AM CDT Appointment Department of Radiation Oncology in [place], [place] [address] [place] [phone] Franny Dutta M.D. [address] [place] [phone] 10/25/2024 11:00 AM CDT Office Visit Department of Oncology in [place], [place] [address] [place] [phone] Kerrie Vela M.B., B.ChForeign, M.D. [address] [place] [phone] 11/06/2024 7:00 AM CDT Lab Department of Oncology in [place], [place] [address] [place] [phone] Kerrie Vela M.B., B.Ch., M.DForeign [address] [place] [phone] 11/06/2024 9:00 AM CDT Office Visit Department of Oncology in [place], [place] [address] [place] [phone] Dawood Ruiz P.A.-C. [address] [place] [phone] 11/06/2024 10:00 AM CDT Infusion Department of Oncology in [place], [place] [address] [place] [address] Kerrie Vela M.B., B.ChForeign, M.D. [address] [place] [phone] 11/20/2024 6:30 AM CDT Lab Department of Laboratory Medicine and Pathology, [facility] in [place], [place] [address] [place] [phone] Kerrie Vela M.B., B.ChForeign, M.D. [address] [place] [phone] 11/20/2024 8:20 AM CDT Office Visit Department of Oncology in [place], [place] [address] [place] [phone] Dawood Ruiz P.A.-C. [address] [place] [phone] 11/20/2024 9:00 AM CDT Infusion Department of Oncology in [place], [place] [address] [place] [phone] Kerrie Vela M.B., B.Ch., M.D. [address] [place] [phone] 12/04/2024 8:30 AM CDT Lab Department of Laboratory Medicine and Pathology, [facility], in [place], [place] [address] [place] [phone] Kerrie Vela M.B., B.Ch., M.D. [address] [place] [phone] 12/04/2024 10:20 AM CDT Office Visit Department of Oncology in [place], [place] [address] [place] [address] eKrrie Vela M.B., BDuran, MPhuc [address] [place] [phone] 12/04/2024 11:00 AM CDT Infusion Department of Oncology in [place], [place] [address] [place] [address] Kerrie Vela M.B., BDuran, MPhuc [address] [place] [phone] documented as of this encounter Visit Diagnoses Not on filedocumented in this encounter Additional Health Concerns Infection Onset Date Last Indicated Resolved Time Protective Environment 07/05/2024 07/05/202409/02 6:26 AM CDT Assessment Noted Time PHQ-9 Depression Total Score: 0 07/04/19 9:20 AM HUMAN FACTORS SCIENTIST documented as of this encounter Care Teams Assistant Bookkeeper Relationship Specialty Start Date End Date Jenny Vaca M.D. [address] [place] [phone] PCP - General 11/11/16 documented as of this encounter
--- OUTSIDE RECORDS SUMMARY | 2024-09-13 12:39 | XMS_ITS | Encounter Summary ---
Author Organization [facility] Address [address] [place] [address] Care Team Providers Care Telegraph And Teletype Operator Name Role Phone Jenny Vaca M.D. 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 [address] [place] [address] Phone: tel: fax: [facility] Region Referral ID Status Reason Start Date Expiration Date Visits Re quested Visits Authorized [id number] Closed 07/04/2024 10/04/2025 1 1 Encounter Details Date Type Department Care Team (Latest Contact Info) Description 08/28/2024 1:42 PM CDT - 08/28/2024 11:59 PM CDT Hospital Encounter Department of Radiology in [place], [place] [address] [place] [phone] Marlo Diallo M.D. 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); Secondary Malignant Neoplasm Brain (HCC); Secondary Malignant Neoplasm Lymph Node (HCC); Pain Hip Left Discharge Disposition: Home or Self Care Social History Tobacco Use Types Packs/Day Years Used Date Smoking Tobacco: Every Day Cigarettes 0.5 60 Passive Smoke Exposure: Current Smokeless Tobacco: Never Alcohol Use Standard Drinks/Week Comments Yes 1 (1 standard drink = 0.6 oz pur e alcohol) 1 beer per night [facility] Utilities Answer Date Recorded In the past 12 months has [employer], [employer], or water [employer] threatened to shut off services in your [...] How often do you attend chur or restorationist services? More than 4 times per year 09/27/2022 Do you belong to any clubs o r organizations such as yazdanism groups, unions, fraternal or athletic groups, or [...] Answer Date Recorded PHQ-2 Score 0 06/18/2024 [facility] - Occupational [...] your living situation today? I have a [facility] place to live 07/08/2023 Comments No Sex and Gender Information Value Date Recorded Sex Assigned at Not on file Legal Sex Female 8:27 AM ENTRY OPERATOR Gender Identity Female 04/06/2017 8:58 AM ENTRY OPERATOR Sexual Orientation Straight 04/06/2017 8: 58 AM ENTRY OPERATOR documented as of this encounter Medications [...] 3 1 blood-glucose meter,continuous (FreeStyle Canelo 3 Smoaks) 1 each (1 Device total) as directed. [...] under the skin. lancets (ACCU-CHEK SOFTCLIX LANCETS) [facility] Use to test 4 times daily Dx: [...] tablet 3 5 06/22/19 26 propylene glycoL ([place] Tears) 0.6 % ophthalmic solution Administer [...] mouth once daily 90 capsule 3 4 nitrofurantoin monohydrate (Macrobid) 100 mg capsuleIndication s:Cystitis Unspecified Without Hematuria Take 1 capsule (100 mg total) by mouth 2 (two) times a day for 7 days. 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 30 tablet 3 4 09/13/19 25 prochlorperazine (Compazine) 10 mg tabletIndications :Cancer Lung Small Cell Personal History,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),Residential Current Drug Therapy, 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 Take 1 tablet (10 mg total) by mouth every 6 (six) hours as needed for nausea or vomiting. 30 tablet 3 4 09/13/19 25 documented as of this encounter Plan of Treatment Upcoming Encounters Date Type Department Care Team (Late st Contact Info) Description 09/14/2024 11:00 AM CDT Admin Visit Department of Oncology in [place], [place] [address] [place] [address] 09/17/2024 8:00 AM CDT Lab Department of Infusion Therapy in [place], [place] [address] [place] [phone] Jenny Vaca M.D. [address] [phone] 09/17/2024 1:30 PM CDT Office Visit Department of Internal Medicine in [place], [place] [address] [phone] Elissa Luo P.A.-C., M.S. [address] [phone] 09/18/2024 8:00 AM CDT Clinical Support Department of Oncology in [address] [phone] Blossom Hernandez M.S.W., L.I.C.S.W. [address] [place] [phone] 09/20/2024 10:00 AM CDT Telemedicine Department of Oncology in [address] [phone] Kerrie Vela M.B., B.Ch., M.D. [address] [place] [phone] 09/24/2024 8:30 AM CDT Lab Department of Oncology in [address] [phone] Kerrie Vela M.B., B.Ch., M.D. [address] [place] [phone] 09/24/2024 9:40 AM CDT Office Visit Department of Oncology in [address] [phone] Kerrie Vela M.B., Trevor, MPhuc [address] [place] [phone] 09/24/2024 10:20 AM CDT Education Department of Oncology in [place], [place] [address] [place] [phone] Kerrie Vela M.B., Trevor, MPhuc [address] [place] [phone] 09/24/2024 11:30 AM CDT Appointment [facility], [facility], [facility] [address] [place] [phone] Kerrie Vela M.B., Trevor, M.DForeign [address] [place] [phone] 09/25/2024 8:30 AM CDT Appointment [facility], [facility], [facility] [address] [place] [phone] Kerrie Vela M.B., Trevor, M.DForeign [address] [place] [phone] 09/26/2024 8:30 AM CDT Appointment [facility], [facility], [facility] [address] [place] [phone] Kerrie Vela M.B., Trevor, M.DForeign [address] [place] [phone] 09/28/2024 11:45 AM CDT Lab Department of Oncology in [place], [place] [address] [place] [phone] Kerrie Vela M.B., BForeignChForeign, M.DForeign [address] [place] [phone] 09/28/2024 1:40 PM CDT Office Visit Department of Oncology in [place], [place] [address] [place] [phone] Dawood Ruiz P.A.-C. [address] [place] [phone] 10/01/2024 8:00 AM CDT Appointment [facility], [facility] [address] [place] [phone] Kerrie Vela M.B., BForeignChForeign, M.DForeign [address] [place] [phone] 10/02/2024 8:00 AM CDT Appointment [facility], [facility], [facility] [address] [place] [phone] Kerrie Vela M.B., BForeignChForeign, M.DForeign [address] [place] [phone] 10/03/2024 8:00 AM CDT Appointment [facility], [facility], [facility] [address] [place] [phone] Kerrie Vela M.B., B.ChForeign, M.DForeign [address] [place] [phone] 10/10/2024 6:30 AM CDT Lab Department of Oncology in [place], [place] [address] [place] [phone] Kerrie Vela M.B., BForeignChForeign, M.DForeign [address] [place] [phone] 10/10/2024 8:20 AM CDT Office Visit Department of Oncology in [place], [place] [address] [place] [phone] Brittney Stuart M.D. [address] [place] [phone] 10/10/2024 12:30 PM CDT Infusion Department of Oncology in [place], [place] [address] [place] [phone] Kerrie Vela M.B., B., M.DForeign [address] [place] [phone] 10/12/2024 11:20 AM CDT Office Visit Department of Oncology in [place], [place] [address] [place] [phone] Kerrie Vela M.B., B.ChForeign, M.D. [address] [place] [phone] 10/17/2024 1:00 PM CDT Office Visit Department of Ophthalmology in [place], [place] [address] [place] [phone] Tomás Mcbride M.D. [address] [place] [phone] 10/23/2024 8:45 AM CDT Lab Department of Oncology in [place], [place] [address] [place] [phone] Kerrie Vela M.B., B.ChForeign, M.DForeign [address] [place] [phone] 10/23/2024 11:00 AM CDT Office Visit Department of Oncology in [place], [place] [address] [place] [phone] Kerrie Vela M.B., BDuran, M.DForeign [address] [place] [phone] 10/23/2024 11:30 AM CDT Appointment Department of Radiology in [place], [place] [address] [place] [address] Franny Dutta M.D. [address] [place] [phone] 10/24/2024 7:30 AM CDT Infusion Department of Oncology in [place], [place] [address] [place] [phone] Kerrie Vela M.B., BDuran, MForeignDForeign [address] [place] [phone] 10/24/2024 11:00 AM CDT Appointment Department of Radiation Oncology in [place], [place] [address] [place] [phone] Franny Dutta M.D. [address] [place] [phone] 10/25/2024 11:00 AM CDT Office Visit Department of Oncology in [place], [place] [address] [place] [phone] Kerrie Vela M.B., B., M.D. [address] [place] [phone] 11/06/2024 7:00 AM CDT Lab Department of Oncology in [place], [place] [address] [place] [phone] Kerrie Vela M.B., BDuran, M.DForeign [address] [place] [phone] 11/06/2024 9:00 AM CDT Office Visit Department of Oncology in [place], [place] [address] [place] [phone] Dawood Ruiz, P.A.-CForeign [address] [place] [phone] 11/06/2024 10:00 AM CDT Infusion Department of Oncology in [place], [place] [address] [place] [phone] Kerrie Vela M.B., BDuran, M.Cecelia [address] [place] [phone] 11/20/2024 6:30 AM CDT Lab Department of Laboratory Medicine and Pathology, [facility] in [place], [place] [address] [place] [phone] Kerrie Vela M.B., B., M.DForeign [address] [place] [phone] 11/20/2024 8:20 AM CDT Office Visit Department of Oncology in [place], [place] [address] [place] [phone] Dawood Ruiz, P.A.-CForeign [address] [place] [phone] 11/20/2024 9:00 AM CDT Infusion Department of Oncology in [place], [place] [address] [place] [phone] Kerrie Vela M.B., BDuran, M.DForeign [address] [place] [phone] 12/04/2024 8:30 AM CDT Lab Department of Laboratory Medicine and Pathology, [facility], in [place], [place] [address] [place] [address] Kerrie Vela M.B., Trevor, M.Cecelia [address] [place] [phone] 12/04/2024 10:20 AM CDT Office Visit Department of Oncology in [place], [place] [address] [place] [phone] Kerrie Vela M.B., Trevor, MPhuc [address] [place] [phone] 12/04/2024 11:00 AM CDT Infusion Department of Oncology in [place], [place] [address] [place] [address] Kerrie Vela M.B., BDuran, MPhuc [address] [place] [phone] documented as of this encounter Procedures Procedure Name Priority Date/Time Associated Diagnosis Comments PET CT SKULL TO THIGH RAD - Routine (most inpatients and all outpatients) 08/28/2024 3:36 PM CDT Cancer Lung Small Cell Personal History Residential Current Drug Therapy, 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 - 08/28/2024 EXAM: PET CT SKULL TO THIGH FDG COMPARISON: Multiple prior FDG PET/CT examinations most /19/2024 INDICATION: Small cell lung cancer. Status post [...] RADIOPHARMACEUTICAL/MEDS: Route: intravenous fludeoxyglucose F 18 injection INTERMEDIATE (FDG F-18),13.2 millicurie IMPRESSION: 1. Since 05/17/2024, [...] of theright upper lobe. Marlo Diallo M.D. 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) Pain Hip Left documented in this encounter Administered Medications Inactive Administered Medications - up to 3 most recent administrations Medication Order MAR Action Action Date Dose Rate Site fludeoxyglucose F 18 injection INTERMEDIATE (FDG F-18) 13.2 millicurie, intravenous, Once, On Tue08/28/24 at 1445, For 1 dose, Imaging Protocol Orders Given 08/28/2024 2:15 PM CDT 13.2 millicuries Right Antecubital documented in this encounter Additional Health Concerns Infection Onset Date Last Indicated Resolved Time Protective Environment 07/05/2024 07/05/202409/02 6:26 AM CDT Assessment Noted Time PHQ-9 Depression Total Score: 0 07/04/19 24 9:20 AM ENTRY OPERATOR documented as of this encounter Care Teams Telegraph And Teletype Operator Relationship Specialty Start Date End Date Jenny Vaca M.D. [address] [place] [phone] PCP - General 11/11/16 documented as of this encounter
--- OUTSIDE RECORDS SUMMARY | 2024-09-13 12:40 | XMS_ITS | Encounter Summary ---
Author Organization [facility] Address [address] [place] [address] Care Team Providers Care Loading Machine Operator Name Role Phone Jenny Vaca M.D. 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 [address] [place] [address] Phone: tel: fax: Department of Oncology in [place], [place] [address] [phone] Phone: tel: fax: Referral ID Status Reason Start Date Expiration Date Visits Re quested Visits Authorized [id number] Closed 12/20/2023 12/19/2025 99 99 Encounter Details Date Type Department Care Team (Late st Contact Info) Description 08/23/2024 9:00 AM CDT Lab Department of Infusion Therapy in [place], [place] [address] [phone] Marlo Diallo M.D. 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 More than 4 times per year 09/27/2022 Do you belong to any clubs o r organizations such as christianity groups, unions, fraternal or athletic groups, or [...] Answer Date Recorded PHQ-2 Score 0 06/18/2024 [facility] - [...] on file Legal Sex Female 8:27 AM WAREHOUSE WORKER Gender Identity Female 04/06/2017 8:58 AM WAREHOUSE WORKER Sexual Orientation Straight 04/06/2017 8: 58 AM WAREHOUSE WORKER documented as of this encounter Plan of Treatment Upcoming Encounters Date Type Department Care Team (Late st Contact Info) Description 09/14/2024 11:00 AM CDT Admin Visit Department of Oncology in [place], [place] [address] [place] [phone] 09/17/2024 8:00 AM CDT Lab Department of Infusion Therapy in [place], [place] [address] [phone] Jenny Vaca M.D. [address] [phone] 09/17/2024 1:30 PM CDT Office Visit Department of Internal Medicine in [place], [place] [address] [phone] Elissa Luo, P.A.-C., M.S. [address] [phone] 09/18/2024 8:00 AM CDT Clinical Support Department of Oncology in [place], [place] [address] [place] [phone] Blossom Hernandez M.S.W., L.I.C.S.W. 200 [place] [address] 09/20/2024 10:00 AM CDT Telemedicine Department of Oncology in [place], [place] [address] [place] [phone] Kerrie Vela M.B., BDuran, M.DForeign [address] [place] [phone] 09/24/2024 8:30 AM CDT Lab Department of Oncology in [place], [place] [address] [place] [phone] Kerrie Vela M.B., B., M.D. [address] [place] [phone] 09/24/2024 9:40 AM CDT Office Visit Department of Oncology in [place], [place] [address] [place] [phone] Kerrie Vela M.B., BDuran, M.DForeign [address] [place] [phone] 09/24/2024 10:20 AM CDT Education Department of Oncology in [place], [place] [address] [place] [phone] Kerrie Vela M.B., B., M.DForeign [address] [place] [phone] 09/24/2024 11:30 AM CDT Appointment [facility], [facility], Lobby Level [address] [place] [address] Kerrie Vela M.B., Trevor, M.D. [address] [place] [phone] 09/25/2024 8:30 AM CDT Appointment [facility], [facility], [facility] [address] [place] [address] Kerrie Vela M.B., BDuran, MPhuc [address] [place] [phone] 09/26/2024 8:30 AM CDT Appointment [facility], [facility], [address] [phone] Kerrie Vela M.B., BDuran, MPhuc [address] [place] [phone] 09/28/2024 11:45 AM CDT Lab Department of Oncology in [place], [place] [address] [place] [phone] Kerrie Vela M.B., BForeignChForeign, M.DForeign [address] [place] [phone] 09/28/2024 1:40 PM CDT Office Visit Department of Oncology in [place], [place] [address] [place] [phone] Dawood Ruiz P.A.-C. [address] [place] [phone] 10/01/2024 8:00 AM CDT Appointment [facility], [facility], [address] [phone] Kerrie Vela M.B., B.ChForeign, M.DForeign [address] [place] [phone] 10/02/2024 8:00 AM CDT Appointment [facility], [facility], [address] [place] [phone] Kerrie Vela M.B., BDuran, MPhuc [address] [place] [phone] 10/03/2024 8:00 AM CDT Appointment [facility], [facility], [facility], [facility] [address] [place] [phone] Kerrie Vela M.B., BDuran, M.Cecelia [address] [place] [phone] 10/10/2024 6:30 AM CDT Lab Department of Oncology in [place], [place] [address] [place] [phone] Kerrie Vela M.B., BDuran, M.DForeign [address] [place] [phone] 10/10/2024 8:20 AM CDT Office Visit Department of Oncology in [place], [place] [address] [place] [phone] Brittney Stuart M.D. [address] [place] [phone] 10/10/2024 12:30 PM CDT Infusion Department of Oncology in [place], [place] [address] [place] [phone] Kerrie Vela M.B., B., M.DForeign [address] [place] [phone] 10/12/2024 11:20 AM CDT Office Visit Department of Oncology in [place], [place] [address] [place] [phone] Kerrie Vela M.B., BDuran, MPhuc [address] [place] [phone] 10/17/2024 1:00 PM CDT Office Visit Department of Ophthalmology in [place], [place] [address] [place] [phone] Tomás Mcbride M.D. [address] [place] [phone] 10/23/2024 8:45 AM CDT Lab Department of Oncology in [place], [place] [address] [place] [phone] Kerrie Vela M.B., Trevor, M.DForeign [address] [place] [phone] 10/23/2024 11:00 AM CDT Office Visit Department of Oncology in [place], [place] [address] [place] [phone] Kerrie Vela M.B., B.ChForeign, M.DForeign [address] [place] [phone] 10/23/2024 11:30 AM CDT Appointment Department of Radiology in [place], [place] [address] [place] [phone] Franny Dutta M.D. [address] [place] [phone] 10/24/2024 7:30 AM CDT Infusion Department of Oncology in [place], [place] [address] [place] [phone] Kerrie Vela M.B., B.ChForeign, M.DForeign [address] [place] [phone] 10/24/2024 11:00 AM CDT Appointment Department of Radiation Oncology in [place], [place] [address] [place] [phone] Franny Dutta M.D. [address] [place] [phone] 10/25/2024 11:00 AM CDT Office Visit Department of Oncology in [place], [place] [address] [place] [phone] Kerrie Vela M.B., B.ChForeign, M.DForeign [address] [place] [phone] 11/06/2024 7:00 AM CDT Lab Department of Oncology in [place], [place] [address] [place] [phone] Kerrie Vela M.B., B.Ch., M.D. [address] [place] [phone] 11/06/2024 9:00 AM CDT Office Visit Department of Oncology in [place], [place] [address] [place] [phone] Dawood Ruiz P.A.-C. [address] [place] [phone] 11/06/2024 10:00 AM CDT Infusion Department of Oncology in [place], [place] [address] [place] [phone] Kerrie Vela M.B., B.Ch., M.D. [address] [place] [phone] 11/20/2024 6:30 AM CDT Lab Department of Laboratory Medicine and Pathology, [facility] in [place], [place] [address] [place] [phone] Kerrie Vela M.B., BDuran, M.DForeign [address] [place] [phone] 11/20/2024 8:20 AM CDT Office Visit Department of Oncology in [place], [place] [address] [place] [phone] Dawood Ruiz P.A.-C. [address] [place] [phone] 11/20/2024 9:00 AM CDT Infusion Department of Oncology in [place], [place] [address] [place] [phone] Kerrie Vela M.B., BDuran, M.DForeign [address] [place] [phone] 12/04/2024 8:30 AM CDT Lab Department of Laboratory Medicine and Pathology, [facility] in [place], [place] [address] [place] [phone] Kerrie Vela M.B., BDuran, M.DForeign [address] [place] [phone] 12/04/2024 10:20 AM CDT Office Visit Department of Oncology in [place], [place] [address] [place] [phone] Kerrie Vela M.B., BDuran, M.DForeign [address] [place] [phone] 12/04/2024 11:00 AM CDT Infusion Department of Oncology in [place], [place] [address] [place] [phone] Kerrie Vela M.B., Alin Murray [address] [place] [phone] documented as of this encounter Procedures Procedure Name Priority Date/Time Associated Diagnosis Comments CBC WITH DIFFERENTIAL, B Routine 08/23/2024 8:51 AM CDT Cancer Lung Small Cell Personal History Usp Current Drug Therapy, 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) MAGNESIUM, S Routine 08/23/2024 8:51 AM CDT Cancer Lung Small Cell Personal History Transformation Manager Current Drug Therapy, 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 LAB BLOOD ADD-ON Final Result [facility] [address] [place] [address], [facility] OWAT [facility] [place] [address] [place] [address] * (ABNORMAL) Comprehensive Metabolic Panel (08/23/2024 8:51 AM CDT) Potassium, P 4.3 3.6 - 5.2 mmol/L 08/23/2024 9:22 AM CDT OWAT Sodium, P 137 135 - 145 mmol/L 08/23/2024 9:22 AM CDT OWAT Chloride, P 106 98 - 107 mmol/L 08/23/2024 9:22 AM CDT OWAT Bicarbonate, P 20(L) 22 - 29 mmol/L 08/23/2024 9:22 AM CDT OWAT Anion Gap, P 11 7 - 15 08/23/2024 9:22 AM CDT OWAT BUN (Blood Urea Nitrogen), P 18 6 - 21 mg/dL 08/23/2024 9:22 AM CDT OWAT Creatinine 1.57(H) 0.59 - 1.04 mg/dL 08/23/2024 9:22 AM CDT OWAT Estimated GFR (eGFR) 34(L) >=60 mL/min/BS A 08/23/2024 9:22 AM CDT OWAT Comment: Estimated GFR calculated using the 2020 CKD_EPI creatinine equation. Calcium, Total, P 8.8 8.8 - 10.2 mg/dL 08/23/2024 9:22 AM CDT OWAT Glucose, P 172(H) 70 - 140 mg/dL 08/23/2024 9:22 AM CDT OWAT Protein, Total, P 6.0(L) 6.3 - 7.9 g/dL 08/23/2024 9:22 AM CDT OWAT Albumin, P 3.6 3.5 - 5.0 g/dL 08/23/2024 9:22 AM CDT OWAT Aspartate Aminotransferase (AST), P 21 8 - 43 U/L 08/23/2024 9:22 AM CDT OWAT Alkaline Phosphatase, P 113(H) 35 - 104 U/L 08/23/2024 9:22 AM CDT OWAT Alanine Aminotransferase (ALT), P 11 7 - 45 U/L 08/23/2024 9:22 AM CDT OWAT Bilirubin, Total, P 0.2 0.0 - 1.2 mg/dL 08/23/2024 9:22 AM CDT OWAT Blood (Blood, Venous) 08/23/2024 8:51 AM CDT 08/23/2024 8:56 AM CDT Marlo Diallo M.D. LAB BLOOD ADD-ON Final Result [facility] [address] [place] [address], [facility] OWAT [facility] [place] [address] [place] [address] * (ABNORMAL) CBC with Differential, Blood (08/23/2024 8:51 AM CDT) Hemoglobin 8.9(L) 11.6 - 15.0 g/dL 08/23/2024 8:59 AM CDT OWAT Hematocrit 28.0(L) 35.5 - 44.9 % 08/23/2024 8:59 AM CDT OWAT Erythrocytes 2.95(L) 3.92 - 5.13 x10(12)/L 08/23/2024 8:59 AM CDT OWAT MCV 94.9 78.2 - 97.9 fL 08/23/2024 8:59 AM CDT OWAT RBC Distrib Width 15.5 12.2 - 16.1 % 08/23/2024 8:59 AM CDT OWAT Platelet Count 274 157 - 371 x10(9)/L 08/23/2024 8:59 AM CDT OWAT Leukocytes 5.3 3.4 - 9.6 x10(9)/L 08/23/2024 8:59 AM CDT OWAT Neutrophils 2.92 1.56 - 6.45 x10(9)/L 08/23/2024 8:59 AM CDT OWAT Lymphocytes 1.40 0.95 - 3.07 x10(9)/L 08/23/2024 8:59 AM CDT OWAT Monocytes 0.85(H) 0.26 - 0.81 x10(9)/L 08/23/2024 8:59 AM CDT OWAT Eosinophils 0.11 0.03 - 0.48 x10(9)/L 08/23/2024 8:59 AM CDT OWAT Basophils 0.03 0.01 - 0.08 x10(9)/L 08/23/2024 8:59 AM CDT OWAT Blood (Blood, Venous) 08/23/2024 8:51 AM CDT 08/23/2024 8:56 AM CDT us Marlo Diallo M.D. 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 For IVAD NOT accessed or used, flush every 4 weeks after 0.9% preservative-free NaCL flush.Indications:Cancer Lung Small Cell Personal History Given 08/23/2024 9:37 AM CDT 500 Units sodium chloride 0.9 % injection 10 mL 10 mL, intra-catheter, As needed, line care, Starting on Sravanthi 08/23/24 at 0842, When IVAD Accessed and in Use: Flush prior to and following infusion, between multiple consecutive infusions, and prior to blood sampling.Indications:Cancer Lung Small Cell Personal History Given 08/23/2024 9:36 AM CDT 10 mL documented in this encounter Additional Health Concerns Infection Onset Date Last Indicated Resolved Time Protective Environment 07/05/2024 07/05/202409/02 6:26 AM CDT Assessment Noted Time PHQ-9 Depression Total Score: 0 07/04/19 24 9:20 AM WAREHOUSE WORKER documented as of this encounter Care Teams Loading Machine Operator Relationship Specialty Start Date End Date Jenny Vaca M.D. [address] [facility] [phone] PCP - General 11/11/16 documented as of this encounter
--- OUTSIDE RECORDS SUMMARY | 2024-09-13 12:40 | XMS_ITS | Encounter Summary ---
Author Organization [facility] Address [address] [place] [address] Care Team Providers Care Yarn Skeins Examiner Name Role Phone Jenny Vaca M.D. Primary Care Provider Encounter Details Date Type Department Care Team (Late st Contact Info) Description 08/17/2024 Orders Only Department of Oncology in [place], [place] [address] [place] [address] Marion Ordoñez M.D. [address] [place] [phone] Social History Tobacco Use Types Packs/Day Years Used Date Smoking Tobacco: Every Day Cigarettes 0.5 60 Passive Smoke Exposure: Current Smokeless Tobacco: Never Alcohol Use Standard Drinks/Week Comments Yes 1 (1 standard drink = 0.6 oz pur e alcohol) 1 beer per night [facility] Utilities Answer Date Recorded In the past 12 months has e [employer], gas, oil, or water [employer] threatened to shut off services in your [...] How often do you attend chur or mormon services? More than 4 times per year 09/27/2022 Do you belong to any clubs o r organizations such as latter day groups, unions, fraternal or athletic groups, or [...] Answer Date Recorded PHQ-2 Score 0 06/18/2024 [facility] of Occupat ional Health - Occupational Stress [...] your living situation today? I have a [facility] place to live 07/08/2023 Comments No Sex and Gender Information Value Date Recorded Sex Assigned at Not on file Legal Sex Female 8:27 AM PULL OUT OPERATOR Gender Identity Female 04/06/2017 8:58 AM PULL OUT OPERATOR Sexual Orientation Straight 04/06/2017 8: 58 AM PULL OUT OPERATOR documented as of this encounter Plan of Treatment Upcoming Encounters Date Type Department Care Team (Late st Contact Info) Description 09/14/2024 11:00 AM CDT Admin Visit Department of Oncology in [place], [place] [address] [place] [address] 09/17/2024 8:00 AM CDT Lab Department of Infusion Therapy in [place], [place] [address] [place] [address] Jenny Vaca M.D. [address] [place] [address] 09/17/2024 1:30 PM CDT Office Visit Department of Internal Medicine in [place], [place] [address] [place] [address] Elissa Luo P.A.-C., M.S. [address] [place] [address] 09/18/2024 8:00 AM CDT Clinical Support Department of Oncology in [place], [place] [address] [place] [phone] Blossom Hernandez M.S.W., L.I.C.S.W. [address] [place] [phone] 09/20/2024 10:00 AM CDT Telemedicine Department of Oncology in [place], [place] [address] [place] [phone] Kerrie Vela M.B., B.Ch., M.D. [address] [place] [phone] 09/24/2024 8:30 AM CDT Lab Department of Oncology in [place], [place] [address] [place] [phone] Kerrie Vela M.B., B.Ch., M.D. [address] [place] [phone] 09/24/2024 9:40 AM CDT Office Visit Department of Oncology in [place], [place] [address] [place] [phone] Kerrie Vela M.B., B.Ch., M.D. [address] [place] [phone] 09/24/2024 10:20 AM CDT Education Department of Oncology in [place], [place] [address] [place] [phone] Kerrie Vela M.B., BDuran, MPhuc [address] [place] [phone] 09/24/2024 11:30 AM CDT Appointment [facility], [facility], [facility] [address] [place] [phone] Kerrie Vela M.B., Trevor, MPhuc [address] [place] [phone] 09/25/2024 8:30 AM CDT Appointment [facility], [facility], [facility] [address] [place] [phone] Kerrie Vela M.B., BForeignChForeign, MForeignDForeign [address] [place] [phone] 09/26/2024 8:30 AM CDT Appointment [facility], [facility], [facility] [address] [place] [phone] Kerrie Vela M.B., B.ChForeign, M.DForeign [address] [place] [phone] 09/28/2024 11:45 AM CDT Lab Department of Oncology in [place], [place] [address] [place] [phone] Kerrie Vela M.B., B.ChForeignAlin [address] [place] [phone] 09/28/2024 1:40 PM CDT Office Visit Department of Oncology in [place], [place] [address] [place] [phone] Dawood Ruiz P.A.-C. [address] [place] [phone] 10/01/2024 8:00 AM CDT Appointment [facility], [facility], [facility] [address] [place] [phone] Kerrie Vela M.B., BDuran, MPhuc [address] [place] [phone] 10/02/2024 8:00 AM CDT Appointment [facility], [facility], [facility] [address] [place] [phone] Kerrie Vela M.B., B.ChForeign, MForeignDForeign [address] [place] [phone] 10/03/2024 8:00 AM CDT Appointment [facility], [facility], [facility] [address] [place] [phone] Kerrie Vela M.B., B.ChForeign, M.DForeign [address] [place] [phone] 10/10/2024 6:30 AM CDT Lab Department of Oncology in [place], [place] [address] [place] [phone] Kerrie Vela M.B., B.ChForeign, MPhuc [address] [place] [phone] 10/10/2024 8:20 AM CDT Office Visit Department of Oncology in [place], [place] [address] [place] [phone] Brittney Stuart M.D. [address] [place] [phone] 10/10/2024 12:30 PM CDT Infusion Department of Oncology in [place], [place] [address] [place] [phone] Kerrie Vela M.B., B.ChForeign, M.D. [address] [place] [phone] 10/12/2024 11:20 AM CDT Office Visit Department of Oncology in [place], [place] [address] [place] [phone] Kerrie Vela M.B., B.Ch., M.D. [address] [place] [phone] 10/17/2024 1:00 PM CDT Office Visit Department of Ophthalmology in [place], [place] [address] [place] [phone] Tomás Mcbride M.D. [address] [place] [phone] 10/23/2024 8:45 AM CDT Lab Department of Oncology in [place], [place] [address] [place] [phone] Kerrie Vela M.B., B.Ch., M.D. [address] [place] [phone] 10/23/2024 11:00 AM CDT Office Visit Department of Oncology in [place], [place] [address] [place] [address] Kerrie Vela M.B., BDuran, MPhuc [address] [place] [phone] 10/23/2024 11:30 AM CDT Appointment Department of Radiology in [place], [place] [address] [place] [address] Franny Dutta M.D. [address] [place] [phone] 10/24/2024 7:30 AM CDT Infusion Department of Oncology in [place], [place] [address] [place] [address] Kerrie Vela M.B., BDuran, MPhuc [address] [place] [phone] 10/24/2024 11:00 AM CDT Appointment Department of Radiation Oncology in [place], [place] [address] [place] [phone] Franny Dutta M.D. [address] [place] [phone] 10/25/2024 11:00 AM CDT Office Visit Department of Oncology in [place], [place] [address] [place] [phone] Kerrie Vela M.B., B.ChForeign, M.DForeign [address] [place] [phone] 11/06/2024 7:00 AM CDT Lab Department of Oncology in [place], [place] [address] [place] [address] Kerrie Vela M.B., B.ChForeign, M.DForeign [address] [place] [phone] 11/06/2024 9:00 AM CDT Office Visit Department of Oncology in [place], [place] [address] [place] [address] Dawood Ruiz, P.A.-CForeign [address] [place] [phone] 11/06/2024 10:00 AM CDT Infusion Department of Oncology in [place], [place] [address] [place] [phone] Kerrie Vela M.B., B.ChForeign, M.DForeign [address] [place] [phone] 11/20/2024 6:30 AM CDT Lab Department of Laboratory Medicine and Pathology, [facility] in [place], [place] [address] [place] [address] Kerrie Vela M.B., B.Ch., M.D. [address] [place] [phone] 11/20/2024 8:20 AM CDT Office Visit Department of Oncology in [place], [place] [address] [place] [phone] Dawood Ruiz, P.A.-CForeign [address] [place] [phone] 11/20/2024 9:00 AM CDT Infusion Department of Oncology in [place], [place] [address] [place] [address] Kerrie Vela M.B., B.ChForeign, M.DForeign [address] [place] [phone] 12/04/2024 8:30 AM CDT Lab Department of Laboratory Medicine and Pathology, [facility], in [place], [place] [address] [place] [address] Kerrie Vela M.B., B.ChForeign, M.D. [address] [place] [phone] 12/04/2024 10:20 AM CDT Office Visit Department of Oncology in [place], [place] [address] [place] [phone] Kerrie Vela M.B., B., M.D. [address] [place] [phone] 12/04/2024 11:00 AM CDT Infusion Department of Oncology in [place], [place] [address] [place] [address] Kerrie Vela M.B., B.Ch., M.D. [address] [place] [phone] documented as of this encounter Visit Diagnoses Not on filedocumented in this encounter Additional Health Concerns Infection Onset Date Last Indicated Resolved Time Protective Environment 07/05/2024 07/05/202409/02 6:26 AM CDT Assessment Noted Time PHQ-9 Depression Total Score: 0 07/04/19 24 9:20 AM PULL OUT OPERATOR documented as of this encounter Care Teams Yarn Skeins Examiner Relationship Specialty Start Date End Date Jenny Vaca M.D. [address] [place] [phone] PCP - General 11/11/16 documented as of this encounter
--- OUTSIDE RECORDS SUMMARY | 2024-09-13 12:40 | XMS_ITS | Encounter Summary ---
Author Organization [facility] Address [address] [place] [address] Care Team Providers Care Card Filer Name Role Phone Jenny Vaca M.D. 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 [address] [place] [address] Phone: tel: fax: Department of Oncology in [place], [place] [address] [place] [address] Phone: tel: fax: Referral ID Status Reason Start Date Expiration Date V isits Requested Visits Authorized [id number] Authorized 02/17/2023 02/16/2025 99 [id number] Encounter Details Date Type Department Care Team (Late st Contact Info) Description 08/24/2024 9:45 AM CDT Infusion Department of Infusion Therapy in [place], [place] [address], [place] [phone] Marlo Diallo M.D. [address] [place] [address] Secondary Malignant Neoplasm Lymph Node [...] pur e alcohol) 1 beer per night [facility] [employer] Answer Date Recorded In the past 12 months has [employer], gas, oil, or water [employer] threatened to shut off services in your [...] any clubs o r organizations such as quaker groups, unions, fraternal or athletic groups, or [...] Date Recorded PHQ-2 Score 0 06/18/2024 [facility]ational Stress Questionnaire Answer Date [...] your living situation today? I have a [facility] place to live 07/08/2023 Comments No Sex and Gender Information Value Date Recorded Sex Assigned at Not on file Legal Sex Female 8:27 AM MANAGER SALES SUPPORT Gender Identity Female 04/06/2017 8:58 AM MANAGER SALES SUPPORT Sexual Orientation Straight 04/06/2017 8: 58 AM MANAGER SALES SUPPORT documented as of this encounter Last Filed Vital Signs Vital Sign Reading Time Taken Comments Blood Pressure 98/48 08/24/2024 10:52 AM CDT Pulse 89 08/24/2024 10:52 AM CDT Temperature 37.1 C (98.8 F) 08/24/2024 9:37 AM CDT Respiratory Rate - - Oxygen Saturation - - Inhaled Oxygen Concentration - - Weight - - Height - - Body Mass Index - - documented in this encounter Plan of Treatment Upcoming Encounters Date Type Department Care Team (Late st Contact Info) Description 09/14/2024 11:00 AM CDT Admin Visit Department of Oncology in [place], [place] [address] [place] [address] 09/17/2024 8:00 AM CDT Lab Department of Infusion Therapy in [place], [place] [address] [place] [address] Jenny Vaca M.D. [address] [place] [address] 09/17/2024 1:30 PM CDT Office Visit Department of Internal Medicine in [place], [place] [address] [place] [address] Elissa Luo P.A.-C., M.S. [address] [place] [phone] 09/18/2024 8:00 AM CDT Clinical Support Department of Oncology in [place], [place] [address] [place] [phone] Blossom Hernandez M.S.W., L.I.C.S.W. [address] [place] [phone] 09/20/2024 10:00 AM CDT Telemedicine Department of Oncology in [place], [place] [address] [place] [phone] Kerrie Vela M.B., B.Ch., M.D. [address] [place] [phone] 09/24/2024 8:30 AM CDT Lab Department of Oncology in [place], [place] [address] [place] [phone] Kerrie Vela M.B., B.Ch., M.D. [address] [place] [phone] 09/24/2024 9:40 AM CDT Office Visit Department of Oncology in [place], [place] [address] [place] [phone] Kerrie Vela M.B., B.Ch., M.D. [address] [place] [phone] 09/24/2024 10:20 AM CDT Education Department of Oncology in [place], [place] [address] [place] [phone] Kerrie Vela M.B., BDuran, M.D. [address] [place] [phone] 09/24/2024 11:30 AM CDT Appointment [facility], [facility], [facility] [address] [place] [address] Kerrie Vela M.B., BForeignChForeign, M.D. [address] [place] [phone] 09/25/2024 8:30 AM CDT Appointment [facility], [facility], [facility] [address] [place] [phone] Kerrie Vela M.B., BForeignChForeign, M.DForeign [address] [place] [phone] 09/26/2024 8:30 AM CDT Appointment [facility], [facility], [facility] [address] [place] [phone] Kerrie Vela M.B., B.ChForeign, M.DForeign [address] [place] [phone] 09/28/2024 11:45 AM CDT Lab Department of Oncology in [place], [place] [address] [place] [phone] Kerrie Vela M.B., B.ChForeign, M.DForeign [address] [place] [phone] 09/28/2024 1:40 PM CDT Office Visit Department of Oncology in [place], [place] [address] [place] [phone] Dawood Ruiz P.A.-C. [address] [place] [phone] 10/01/2024 8:00 AM CDT Appointment [facility], [facility], [facility] [address] [place] [phone] Kerrie Vela M.B., BForeignChForeign, M.DForeign [address] [place] [phone] 10/02/2024 8:00 AM CDT Appointment [facility], [facility], [facility] [address] [place] [phone] Kerrie Vela M.B., BForeignChForeign, M.D. [address] [place] [phone] 10/03/2024 8:00 AM CDT Appointment [facility], [facility], [facility] [address] [place] [phone] Kerrie Vela M.B., B.ChForeign, M.DForeign [address] [place] [phone] 10/10/2024 6:30 AM CDT Lab Department of Oncology in [place], [place] [address] [place] [phone] Kerrie Vela M.B., B.ChForeign, M.DForeign [address] [place] [phone] 10/10/2024 8:20 AM CDT Office Visit Department of Oncology in [place], [place] [address] [place] [phone] Brittney Stuart M.D. [address] [place] [phone] 10/10/2024 12:30 PM CDT Infusion Department of Oncology in [place], [place] [address] [place] [address] Kerrie Vela M.B., B.ChForeign, M.D. [address] [place] [phone] 10/12/2024 11:20 AM CDT Office Visit Department of Oncology in [place], [place] [address] [place] [phone] Kerrie Vela M.B., B.Ch., M.D. [address] [place] [phone] 10/17/2024 1:00 PM CDT Office Visit Department of Ophthalmology in [place], [place] [address] [place] [phone] Tomás Mcbride M.D. [address] [place] [phone] 10/23/2024 8:45 AM CDT Lab Department of Oncology in [place], [place] [address] [place] [phone] Kerrie Vela M.B., B.Ch., M.D. [address] [place] [phone] 10/23/2024 11:00 AM CDT Office Visit Department of Oncology in [address] [phone] Kerrie Vela M.B., BDuran, MPhuc [address] [place] [phone] 10/23/2024 11:30 AM CDT Appointment Department of Radiology in [place], [place] [address] [place] [address] Franny Dutta M.D. [address] [place] [phone] 10/24/2024 7:30 AM CDT Infusion Department of Oncology in [place], [place] [address] [place] [phone] Kerire Vela M.B., B.ChForeign, M.DForeign [address] [place] [phone] 10/24/2024 11:00 AM CDT Appointment Department of Radiation Oncology in [place], [place] [address] [place] [address] Franny Dutta M.D. [address] [place] [phone] 10/25/2024 11:00 AM CDT Office Visit Department of Oncology in [place], [place] [address] [place] [phone] Kerrie Vela M.B., B.ChForeign, M.D. [address] [place] [phone] 11/06/2024 7:00 AM CDT Lab Department of Oncology in [place], [place] [address] [place] [phone] Kerrie Vela M.B., B.ChForeign, M.DForeign [address] [place] [phone] 11/06/2024 9:00 AM CDT Office Visit Department of Oncology in [place], [place] [address] [place] [phone] Dawood Ruiz P.A.-CForeign [address] [place] [phone] 11/06/2024 10:00 AM CDT Infusion Department of Oncology in [place], [place] [address] [place] [phone] Kerrie Vela M.B., B.Ch., M.D. [address] [place] [phone] 11/20/2024 6:30 AM CDT Lab Department of Laboratory Medicine and Pathology, [facility] in [place], [place] [address] [place] [phone] Kerrie Vela M.B., B.Ch., M.D. [address] [place] [phone] 11/20/2024 8:20 AM CDT Office Visit Department of Oncology in [place], [place] [address] [place] [phone] Dawood Ruiz, P.A.-CForeign [address] [place] [phone] 11/20/2024 9:00 AM CDT Infusion Department of Oncology in [place], [place] [address] [place] [phone] Kerrie Vela M.B., B.Ch., M.D. [address] [place] [phone] 12/04/2024 8:30 AM CDT Lab Department of Laboratory Medicine and Pathology, [facility], in [place], [place] [address] [place] [address] Kerrie Vela M.B., Trevor, MPhuc [address] [place] [phone] 12/04/2024 10:20 AM CDT Office Visit Department of Oncology in [place], [place] [address] [place] [address] Kerrie Vela M.B., Trevor, MPhuc [address] [place] [phone] 12/04/2024 11:00 AM CDT Infusion Department of Oncology in [place], [place] [address] [place] [phone] Kerrie Vela M.B., Trevor, MPhuc [address] [place] [phone] Scheduled Referrals Name Type Priority Associated Diagnoses Orde r Schedule Hydration Infusion Therapy; Outpatient Referral Routine 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),Secondary Malignant Neoplasm Lymph Node (HCC) New Bag 08/24/2024 9:43 AM CDT 1,000 mL 1000 mL/hr sodium chloride 0.9 % injection 10 mL 10 mL, intra-catheter, As needed, line care, Starting on Tue08/24/24 at 1106, When IVAD Accessed and in Use: Flush prior to and following infusion, between multiple consecutive infusions, and prior to blood sampling.Indications:Cancer Lung Small Cell Personal History Given 08/24/2024 11:03 AM CDT 10 mL documented in this encounter Additional Health Concerns Infection Onset Date Last Indicated Resolved Time Protective Environment 07/05/2024 07/05/202409/02 6:26 AM CDT Assessment Noted Time PHQ-9 Depression Total Score: 0 07/04/19 9:20 AM MANAGER SALES SUPPORT documented as of this encounter Care Teams Card Filer Relationship Specialty Start Date End Date Jenny Vaca M.D. [address] [place] [address] PCP - General 11/11/16 documented as of this encounter
--- OUTSIDE RECORDS SUMMARY | 2024-09-13 12:40 | XMS_ITS | Encounter Summary ---
Author Organization [facility] Address [address] [place] [address] Care Team Providers Care Tester Rocket Engine Name Role Phone Jenny Vaca M.D. 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 [address] [place] [address] Phone: tel: fax: Department of Oncology in [place], [place] [address] [place] [phone] Phone: tel: fax: Referral ID Status Reason Start Date Expiration Date V isits Requested Visits Authorized [id number] Authorized 02/17/2023 02/16/2025 99 99 Encounter Details Date Type Department Care Team (Late st Contact Info) Description 08/17/2024 1:00 PM CDT Infusion Department of Infusion Therapy in [place], [place] [address] [phone] Marlo Diallo M.D. [address] [place] [address] Secondary Malignant Neoplasm Lymph Node [...] alcohol) 1 beer per night [facility] [employer] Answer Date Recorded In the past 12 months has e [employer], gas, oil, or water [employer] threatened to shut off services in your [...] How often do you attend chur or taoist services? More than 4 times per year 09/27/2022 Do you belong to any clubs o r organizations such as moravian groups, unions, fraternal or athletic groups, or [...] Answer Date Recorded PHQ-2 Score 0 06/18/2024 [facility] Occupational Stress Questionnaire Answer Date [...] your living situation today? I have a [facility] place to live 07/08/2023 Comments No Sex and Gender Information Value Date Recorded Sex Assigned at Not on file Legal Sex Female 8:27 AM LINE UP WORKER Gender Identity Female 04/06/2017 8:58 AM LINE UP WORKER Sexual Orientation Straight 04/06/2017 8: 58 AM LINE UP WORKER documented as of this encounter Last Filed Vital Signs Vital Sign Reading Time Taken Comments Blood Pressure 103/55 08/17/2024 12:50 PM CDT Pulse 78 08/17/2024 12:50 PM CDT Temperature 36.3 C (97.3 F) 08/17/2024 12:50 PM CDT Respiratory Rate - - Oxygen Saturation - - Inhaled Oxygen Concentration - - Weight - - Height - - Body Mass Index - - documented in this encounter Plan of Treatment Upcoming Encounters Date Type Department Care Team (Late st Contact Info) Description 09/14/2024 11:00 AM CDT Admin Visit Department of Oncology in [place], [place] [address] [place] [address] 09/17/2024 8:00 AM CDT Lab Department of Infusion Therapy in [place], [place] [address] [place] [address] Jenny Vaca M.D. [address] [place] [address] 09/17/2024 1:30 PM CDT Office Visit Department of Internal Medicine in [place], [place] [address] [facility] [place] [address] Elissa Luo P.A.-C., M.S. [address] [place] [phone] 09/18/2024 8:00 AM CDT Clinical Support Department of Oncology in [place], [place] [address] [place] [phone] Blossom Hernandez M.S.W., L.I.C.S.W. [address] [place] [phone] 09/20/2024 10:00 AM CDT Telemedicine Department of Oncology in [place], [place] [address] [place] [phone] Kerrie Vela M.B., B.Ch., M.D. [address] [place] [phone] 09/24/2024 8:30 AM CDT Lab Department of Oncology in [place], [place] [address] [place] [phone] Kerrie Vela M.B., B.Ch., M.D. [address] [place] [phone] 09/24/2024 9:40 AM CDT Office Visit Department of Oncology in [place], [place] [address] [place] [phone] Kerrie Vela M.B., B.Ch., M.D. [address] [place] [phone] 09/24/2024 10:20 AM CDT Education Department of Oncology in [place], [place] [address] [place] [phone] Kerrie Vela M.B., BDuran, M.D. [address] [place] [phone] 09/24/2024 11:30 AM CDT Appointment [facility], [facility], [facility] [address] [place] [phone] Kerrie Vela M.B., BForeignChForeign, M.D. [address] [place] [phone] 09/25/2024 8:30 AM CDT Appointment [facility], [facility], [facility] [address] [place] [phone] Kerrie Vela M.B., BForeignChForeign, M.DForeign [address] [place] [phone] 09/26/2024 8:30 AM CDT Appointment [facility], [facility], [facility] [address] [place] [phone] Kerrie Vela M.B., B.ChForeign, M.DForeign [address] [place] [phone] 09/28/2024 11:45 AM CDT Lab Department of Oncology in [place], [place] [address] [place] [phone] Kerrie Vela M.B., B.ChForeign, M.DForeign [address] [place] [phone] 09/28/2024 1:40 PM CDT Office Visit Department of Oncology in [place], [place] [address] [place] [phone] Dawood Ruiz P.A.-C. [address] [place] [phone] 10/01/2024 8:00 AM CDT Appointment [facility], [facility], [facility] [address] [place] [phone] Kerrie Vela M.B., BForeignChForeign, M.DForeign [address] [place] [phone] 10/02/2024 8:00 AM CDT Appointment [facility], [facility], [facility] [address] [place] [phone] Kerrie Vela M.B., BForeignChForeign, M.D. [address] [place] [phone] 10/03/2024 8:00 AM CDT Appointment [facility], [facility], [facility] [address] [place] [phone] Kerrie Vela M.B., B.ChForeign, M.DForeign [address] [place] [phone] 10/10/2024 6:30 AM CDT Lab Department of Oncology in [place], [place] [address] [place] [phone] Kerrie Vela M.B., B.ChForeign, M.DForeign [address] [place] [phone] 10/10/2024 8:20 AM CDT Office Visit Department of Oncology in [place], [place] [address] [place] [phone] Brittney Stuart M.D. [address] [place] [phone] 10/10/2024 12:30 PM CDT Infusion Department of Oncology in [place], [place] [address] [place] [phone] Kerrie Vela M.B., B.ChForeign, M.D. [address] [place] [phone] 10/12/2024 11:20 AM CDT Office Visit Department of Oncology in [place], [place] [address] [place] [phone] Kerrie Vela M.B., B.Ch., M.D. [address] [place] [phone] 10/17/2024 1:00 PM CDT Office Visit Department of Ophthalmology in [place], [place] [address] [place] [phone] Tomás Mcbride M.D. [address] [place] [phone] 10/23/2024 8:45 AM CDT Lab Department of Oncology in [place], [place] [address] [place] [phone] Kerrie Vela M.B., B.Ch., M.D. [address] [place] [phone] 10/23/2024 11:00 AM CDT Office Visit Department of Oncology in [address] [phone] Kerrie Vela M.B., BDuran, MPhuc [address] [place] [phone] 10/23/2024 11:30 AM CDT Appointment Department of Radiology in [place], [place] [address] [place] [address] Franny Dutta M.D. [address] [place] [phone] 10/24/2024 7:30 AM CDT Infusion Department of Oncology in [place], [place] [address] [place] [phone] Kerrie Vela M.B., B.ChForeign, M.DForeign [address] [place] [phone] 10/24/2024 11:00 AM CDT Appointment Department of Radiation Oncology in [place], [place] [address] [place] [address] Franny Dutta M.D. [address] [place] [phone] 10/25/2024 11:00 AM CDT Office Visit Department of Oncology in [place], [place] [address] [place] [phone] Kerrie Vela M.B., B.ChForeign, M.D. [address] [place] [phone] 11/06/2024 7:00 AM CDT Lab Department of Oncology in [place], [place] [address] [place] [phone] Kerrie Vela M.B., B.ChForeign, M.DForeign [address] [place] [phone] 11/06/2024 9:00 AM CDT Office Visit Department of Oncology in [place], [place] [address] [place] [phone] Dawood Ruiz P.A.-CForeign [address] [place] [phone] 11/06/2024 10:00 AM CDT Infusion Department of Oncology in [place], [place] [address] [place] [phone] Kerrie Vela M.B., B.Ch., M.D. [address] [place] [phone] 11/20/2024 6:30 AM CDT Lab Department of Laboratory Medicine and Pathology, [facility] in [place], [place] [address] [place] [phone] Kerrie Vela M.B., B.Ch., M.D. [address] [place] [phone] 11/20/2024 8:20 AM CDT Office Visit Department of Oncology in [place], [place] [address] [place] [phone] Dawood Ruiz, P.A.-CForeign [address] [place] [phone] 11/20/2024 9:00 AM CDT Infusion Department of Oncology in [place], [place] [address] [place] [phone] Kerrie Vela M.B., B.Ch., M.D. [address] [place] [phone] 12/04/2024 8:30 AM CDT Lab Department of Laboratory Medicine and Pathology, [facility], in [place], [place] [address] [place] [address] Kerrie Vela M.B., Trevor, MPhuc [address] [place] [phone] 12/04/2024 10:20 AM CDT Office Visit Department of Oncology in [place], [place] [address] [place] [address] Kerrie Vela M.B., Trevor, MPhuc [address] [place] [phone] 12/04/2024 11:00 AM CDT Infusion Department of Oncology in [place], [place] [address] [place] [phone] Kerrie Vela M.B., Trevor, MPhuc [address] [place] [phone] Scheduled Referrals Name Type Priority Associated Diagnoses Orde r Schedule Hydration Infusion Therapy; Outpatient Referral Routine 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),Secondary Malignant Neoplasm Lymph Node (HCC) New Bag 08/17/2024 12:57 PM CDT 1,000 mL 1000 mL/hr sodium chloride 0.9 % injection 20 mL 20 mL, intra-catheter, As needed, line care, Starting on Tue08/17/24 at 1405, When IVAD Accessed and in Use: Flush post blood transfusion or post blood sampling.Indications:Cancer Lung Small Cell Personal History Given 08/17/2024 2:05 PM CDT 20 mL documented in this encounter Additional Health Concerns Infection Onset Date Last Indicated Resolved Time Protective Environment 07/05/2024 07/05/202409/02 6:26 AM CDT Assessment Noted Time PHQ-9 Depression Total Score: 0 07/04/19 24 9:20 AM LINE UP WORKER documented as of this encounter Care Teams Tester Rocket Engine Relationship Specialty Start Date End Date Jenny Vaca M.D. [address], [place] [phone] PCP - General 11/11/16 documented as of this encounter
--- OUTSIDE RECORDS SUMMARY | 2024-09-13 12:40 | XMS_ITS | Encounter Summary ---
Author Organization [facility] Address [address] [place] [address] Care Team Providers Care Side Seam Machine Operator Name Role Phone Jenny Vaca M.D. Primary Care Provider Encounter Details Date Type Department Care Team (Late st Contact Info) Description 08/17/2024 Orders Only Department of Oncology in [place], [place] [address] [place] [address] Marion Ordoñez M.D. [address] [place] [phone] Urinary Tract Infection Site Not Specified (Primary Dx) Social History Tobacco Use Types Packs/Day Years Used Date Smoking Tobacco: Every Day Cigarettes 0.5 60 Passive Smoke Exposure: Current Smokeless Tobacco: Never Alcohol Use Standard Drinks/Week Comments Yes 1 (1 standard drink = 0.6 oz pur e alcohol) 1 beer per night [facility] Utilities Answer Date Recorded In the past 12 months has th e [employer], gas, oil, or water [employer] threatened to shut off services in your [...] How often do you attend chur or advent services? More than 4 times per year 09/27/2022 Do you belong to any clubs o r organizations such as buddhism groups, unions, fraternal or athletic groups, or [...] Answer Date Recorded PHQ-2 Score 0 06/18/2024 [facility] [place] [facility] Occupat ional Health - Occupational Stress [...] living situation today? I have a [facility] place to live 07/08/2023 Comments No Sex and Gender Information Value Date Recorded Sex Assigned at Not on file Legal Sex Female 8:27 AM HOSPITALITY WORKERS Gender Identity Female 04/06/2017 8:58 AM HOSPITALITY WORKERS Sexual Orientation Straight 04/06/2017 8: 58 AM HOSPITALITY WORKERS documented as of this encounter Plan of Treatment Upcoming Encounters Date Type Department Care Team (Late st Contact Info) Description 09/14/2024 11:00 AM CDT Admin Visit Department of Oncology in [place], [place] [address] [place] [address] 09/17/2024 8:00 AM CDT Lab Department of Infusion Therapy in [place], [place] [address] [place] [phone] Jenny Vaca M.D. [address] [place] [address] 09/17/2024 1:30 PM CDT Office Visit Department of Internal Medicine in [place], [place] [address] [place] [address] Elissa Luo P.A.-C., M.S. [address] [place] [phone] 09/18/2024 8:00 AM CDT Clinical Support Department of Oncology in [place], [place] [address] [place] [phone] Blossom Hernandez, M.S.W., L.I.C.S.W. [address] [place] [phone] 09/20/2024 10:00 AM CDT Telemedicine Department of Oncology in [place], [place] [address] [place] [phone] Kerrie Vela M.B., B.Ch., M.D. [address] [place] [phone] 09/24/2024 8:30 AM CDT Lab Department of Oncology in [place], [place] [address] [place] [phone] Kerrie Vela M.B., B.Ch., M.D. [address] [place] [phone] 09/24/2024 9:40 AM CDT Office Visit Department of Oncology in [address] [phone] Kerrie Vela M.B., Trevor, M.DForeign [address] [place] [phone] 09/24/2024 10:20 AM CDT Education Department of Oncology in [place], [place] [address] [place] [phone] Kerrie Vela M.B., BDuran, MPhuc [address] [place] [phone] 09/24/2024 11:30 AM CDT Appointment [facility], [facility], [facility] [address] [place] [phone] Kerrie Vela M.B., Trevor, M.Cecelia [address] [place] [phone] 09/25/2024 8:30 AM CDT Appointment [facility], [facility], [facility] [address] [place] [phone] Kerrie Vela M.B., Trevor, MForeignDForeign [address] [place] [phone] 09/26/2024 8:30 AM CDT Appointment [facility], [facility], [facility] [address] [place] [phone] Kerrie Vela M.B., BDuran, M.DForeign [address] [place] [phone] 09/28/2024 11:45 AM CDT Lab Department of Oncology in [place], [place] [address] [place] [phone] Kerrie Vela M.B., BForeignChForeign, M.DForeign [address] [place] [phone] 09/28/2024 1:40 PM CDT Office Visit Department of Oncology in [place], [place] [address] [place] [phone] Dawood Ruiz P.A.-C. [address] [place] [phone] 10/01/2024 8:00 AM CDT Appointment [facility], [facility], [facility] [address] [place] [phone] Kerrie Vela M.B., BForeignChForeign, M.DForeign [address] [place] [phone] 10/02/2024 8:00 AM CDT Appointment [facility], [facility], [facility] [address] [place] [phone] Kerrie Vela M.B., B.ChForeign, M.DForeign [address] [place] [phone] 10/03/2024 8:00 AM CDT Appointment [facility], [facility], [facility] [address] [place] [phone] Kerrie Vela M.B., B.Ch., M.DForeign [address] [place] [phone] 10/10/2024 6:30 AM CDT Lab Department of Oncology in [place], [place] [address] [place] [phone] Kerrie Vela M.B., B.ChForeign, M.DForeign [address] [place] [phone] 10/10/2024 8:20 AM CDT Office Visit Department of Oncology in [place], [place] [address] [place] [phone] Brittney Stuart M.D. [address] [place] [phone] 10/10/2024 12:30 PM CDT Infusion Department of Oncology in [place], [place] [address] [place] [phone] Kerrie Vela M.B., B.ChForeign, M.DForeign [address] [place] [phone] 10/12/2024 11:20 AM CDT Office Visit Department of Oncology in [address] [phone] Kerrie Vela M.B., B.ChForeign, M.DForeign [address] [place] [phone] 10/17/2024 1:00 PM CDT Office Visit Department of Ophthalmology in [place], [place] [address] [place] [phone] Tomás Mcbride M.D. [address] [place] [phone] 10/23/2024 8:45 AM CDT Lab Department of Oncology in [place], [place] [address] [place] [phone] Kerrie Vela M.B., B.Ch., M.D. [address] [place] [phone] 10/23/2024 11:00 AM CDT Office Visit Department of Oncology in [place], [place] [address] [place] [phone] Kerrie Vela M.B., BDuran, MForeignDForeign [address] [place] [phone] 10/23/2024 11:30 AM CDT Appointment Department of Radiology in [place], [place] [address] [place] [phone] Franny Dutta M.D. [address] [place] [phone] 10/24/2024 7:30 AM CDT Infusion Department of Oncology in [place], [place] [address] [place] [phone] Kerrie Vela M.B., B.ChForeign, M.DForeign [address] [place] [phone] 10/24/2024 11:00 AM CDT Appointment Department of Radiation Oncology in [place], [place] [address] [place] [phone] Franny Dutta M.D. [address] [place] [phone] 10/25/2024 11:00 AM CDT Office Visit Department of Oncology in [place], [place] [address] [place] [phone] Kerrie Vela M.B., B.ChForeign, M.DForeign [address] [place] [phone] 11/06/2024 7:00 AM CDT Lab Department of Oncology in [place], [place] [address] [place] [phone] Kerrie Vela M.B., BForeignChForeign, M.DForeign [address] [place] [phone] 11/06/2024 9:00 AM CDT Office Visit Department of Oncology in [place], [place] [address] [place] [phone] Dawood Ruiz, P.A.-CForeign [address] [place] [phone] 11/06/2024 10:00 AM CDT Infusion Department of Oncology in [place], [place] [address] [place] [phone] Kerrie Vela M.B., B.ChForeign, M.DForeign [address] [place] [phone] 11/20/2024 6:30 AM CDT Lab Department of Laboratory Medicine and Pathology, [facility], in [place], [place] [address] [place] [phone] Kerrie Vela M.B., B.ChForeign, M.DForeign [address] [place] [phone] 11/20/2024 8:20 AM CDT Office Visit Department of Oncology in [place], [place] [address] [place] [phone] Dawood Ruiz, P.A.-CForeign [address] [place] [phone] 11/20/2024 9:00 AM CDT Infusion Department of Oncology in [place], [place] [address] [place] [phone] Kerrie Vela M.B., B.ChForeign, M.D. [address] [place] [phone] 12/04/2024 8:30 AM CDT Lab Department of Laboratory Medicine and Pathology, [facility], in [place], [place] [address] [place] [phone] Kerrie Vela M.B., B.ChForeign, M.DForeign [address] [place] [phone] 12/04/2024 10:20 AM CDT Office Visit Department of Oncology in [place], [place] [address] [place] [phone] Kerrie Vela M.B., BDuran, MPhuc [address] [place] [phone] 12/04/2024 11:00 AM CDT Infusion Department of Oncology in [place], [place] [address] [place] [phone] Kerrie Vela M.B., B.ChForeign, M.DForeign [address] [place] [phone] documented as of this encounter Visit Diagnoses Diagnosis Urinary Tract Infection Site Not Specified- Primary documented in this encounter Additional Health Concerns Infection Onset Date Last Indicated Resolved Time Protective Environment 07/05/2024 07/05/202409/02 6:26 AM CDT Assessment Noted Time PHQ-9 Depression Total Score: 0 07/04/19 24 9:20 AM HOSPITALITY WORKERS documented as of this encounter Care Teams Side Seam Machine Operator Relationship Specialty Start Date End Date Jenny Vaca M.D. [address] [phone] PCP - General 11/11/16 documented as of this encounter
--- OUTSIDE RECORDS SUMMARY | 2024-09-13 12:40 | XMS_ITS | Encounter Summary ---
Author Organization [facility] Address [address] [place] [address] Care Team Providers Care Pot Filler Name Role Phone Jenny Vaca M.D. Primary Care Provider [phone] Reason for Referral * Outpatient (Routine) - Closed Specialty Diagnoses / Procedures Referred By Contac t Referred To Contact Oncology Mario Maldonado M.D. [address] [place] [address] Phone: tel: fax: [facility] Region Referral ID Status Reason Start Date Expiration Date Visits Re quested Visits Authorized [id number] Closed 08/23/2024 02/22/2026 1 1 Reason for Visit * Reason Onset Date Comments Symptom Assessment 08/23/2024 Encounter Details Date Type Department Care Team (Latest Contact Info) Description 08/23/2024 Clinical Communication Department of Oncology in [place], [place] [address] [place] [address] Amina Jones R.N. [address] [place] [address] Symptom Assessment Social History Tobacco Use Types Packs/Day Years Used Date Smoking Tobacco: Every Day Cigarettes 0.5 60 Passive Smoke Exposure: Current Smokeless Tobacco: Never Alcohol Use Standard Drinks/Week Comments Yes 1 (1 standard drink = 0.6 oz pur e alcohol) 1 beer per night [facility] Utilities Answer Date Recorded In [...] week 09/27/2022 How often do you attend formerly [facility] or anabaptism services? More than 4 times per year 09/27/2022 Do you belong to any clubs o r organizations such as restorationism groups, unions, fraternal or athletic groups, or [...] Answer Date Recorded PHQ-2 Score 0 06/18/2024 [facility] - Occupational Stress Questionnaire Answer Date [...] your living situation today? I have a [facility] place to live 07/08/2023 Comments No Sex and Gender Information Value Date Recorded Sex Assigned at Not on file Legal Sex Female 8:27 AM SAFETY ASSISTANT Gender Identity Female 04/06/2017 8:58 AM SAFETY ASSISTANT Sexual Orientation Straight 04/06/2017 8: 58 AM SAFETY ASSISTANT documented as of this encounter Miscellaneous Notes * Telephone Encounter - Amina Jones R.N. - 08/23/2024 12:09 PM CDT Iva presents today prior to treatment tomorrow. She currently is on Cipro for a UTI, and has one day left. Patient states she is feeling better, but still having urinary symptoms (dysuria, urgency)with low back pain radiating to her flank and neck. She denies any fevers or chills. Reviewed symptoms and repeat UA/UC with Dr. Maldonado: As patient is still having urinary symptoms we should defer treatment by a week and try another course of antibiotics, and if she does not feel improved she should go to the ED for imaging as her labs looks stable. Updated Iva with plan. She can stop Cipro, and change to Macrobid. Will defer treatment one week,but keep scans/follow up appointments as is. Patient verbalizes understanding and agrees with plan. documented in this encounter Plan of Treatment Upcoming Encounters Date Type Department Care Team (Late st Contact Info) Description 09/14/2024 11:00 AM CDT Admin Visit Department of Oncology in [place], [place] [address] [place] [address] 09/17/2024 8:00 AM CDT Lab Department of Infusion Therapy in [place], [place] [address], [place] [phone] Jenny Vaca M.D. [address], [place] [phone] 09/17/2024 1:30 PM CDT Office Visit Department of Internal Medicine in [place], [place] [address], [place] [phone] Elissa Luo P.AForeign-C., M.S. [address] [address] 09/18/2024 8:00 AM CDT Clinical Support Department of Oncology in [place], [place] [address] [place] [phone] Blossom Hernandez M.S.W., L.I.C.S.W. [address] [place] [phone] 09/20/2024 10:00 AM CDT Telemedicine Department of Oncology in [place], [place] [address] [place] [phone] Kerrie Vela M.B., B.ChForeign, M.D. [address] [place] [phone] 09/24/2024 8:30 AM CDT Lab Department of Oncology in [place], [place] [address] [place] [phone] Kerrie Vela M.B., B.Ch., M.D. [address] [place] [phone] 09/24/2024 9:40 AM CDT Office Visit Department of Oncology in [place], [place] [address] [place] [phone] Kerrie Vela M.B., B.Ch., M.D. [address] [place] [phone] 09/24/2024 10:20 AM CDT Education Department of Oncology in [place], [place] [address] [place] [phone] Kerrie Vela M.B., B.Ch., M.D. [address] [place] [phone] 09/24/2024 11:30 AM CDT Appointment [facility], [facility], [facility] [address] [place] [phone] Kerrie Vela M.B., B.ChForeign, M.DForeign [address] [place] [phone] 09/25/2024 8:30 AM CDT Appointment [facility], [facility], [facility] [address] [place] [phone] Kerrie Vela M.B., B.ChForeign, M.D. [address] [place] [phone] 09/26/2024 8:30 AM CDT Appointment [facility], [facility], [facility] [address] [place] [phone] Kerrie Vela M.B., B.Ch., M.D. [address] [place] [phone] 09/28/2024 11:45 AM CDT Lab Department of Oncology in [place], [place] [address] [place] [phone] Kerrie Vela M.B., B.Ch., M.D. [address] [place] [phone] 09/28/2024 1:40 PM CDT Office Visit Department of Oncology in [place], [place] [address] [place] [phone] Dawood Ruiz P.A.-C. [address] [place] [phone] 10/01/2024 8:00 AM CDT Appointment [facility], [facility], [facility] [address] [place] [phone] Kerrie Vela M.B., B.ChForeign, M.DForeign [address] [place] [phone] 10/02/2024 8:00 AM CDT Appointment [facility], [facility], [facility] [address] [place] [phone] Kerrie Vela M.B., B., M.D. [address] [place] [phone] 10/03/2024 8:00 AM CDT Appointment [facility], [facility], [facility] [address] [place] [phone] Kerrie Vela M.B., B., M.D. [address] [place] [phone] 10/10/2024 6:30 AM CDT Lab Department of Oncology in [place], [place] [address] [place] [phone] Kerrie Vela M.B., B.Ch., M.D. [address] [place] [phone] 10/10/2024 8:20 AM CDT Office Visit Department of Oncology in [place], [place] [address] [place] [phone] rBittney Stuart M.D. [address] [place] [phone] 10/10/2024 12:30 PM CDT Infusion Department of Oncology in [place], [place] [address] [place] [phone] Kerrie Vela M.B., Trevor, MEllen. [address] [place] [phone] 10/12/2024 11:20 AM CDT Office Visit Department of Oncology in [place], [place] [address] [place] [phone] Kerrie Vela M.B., BDuran, M.DForeign [address] [place] [phone] 10/17/2024 1:00 PM CDT Office Visit Department of Ophthalmology in [place], [place] [address] [place] [phone] Tomás Mcbride M.D. [address] [place] [phone] 10/23/2024 8:45 AM CDT Lab Department of Oncology in [address] [phone] Kerrie Vela M.B., B.ChForeign, M.DForeign [address] [place] [phone] 10/23/2024 11:00 AM CDT Office Visit Department of Oncology in [address] [phone] Kerrie Vela M.B., B., M.D. [address] [place] [phone] 10/23/2024 11:30 AM CDT Appointment Department of Radiology in [place], [place] [address] [place] [address] Franny Dutta M.D. [address] [place] [phone] 10/24/2024 7:30 AM CDT Infusion Department of Oncology in [place], [place] [address] [place] [phone] Kerrie Vela M.B., B.ChForeign, M.DForeign [address] [place] [phone] 10/24/2024 11:00 AM CDT Appointment Department of Radiation Oncology in [place], [place] [address] [place] [phone] Franny Dutta M.D. [address] [place] [phone] 10/25/2024 11:00 AM CDT Office Visit Department of Oncology in [place], [place] [address] [place] [phone] Kerrie Vela M.B., B.ChForeign, M.D. [address] [place] [phone] 11/06/2024 7:00 AM CDT Lab Department of Oncology in [place], [place] [address] [place] [phone] Kerrie Vela M.B., B.ChForeign, M.DForeign [address] [place] [phone] 11/06/2024 9:00 AM CDT Office Visit Department of Oncology in [place], [place] [address] [place] [phone] Dawood Ruiz P.A.-C. [address] [place] [phone] 11/06/2024 10:00 AM CDT Infusion Department of Oncology in [place], [place] [address] [place] [phone] Kerrie Vela M.B., B.Ch., M.D. [address] [place] [phone] 11/20/2024 6:30 AM CDT Lab Department of Laboratory Medicine and Pathology, [facility] in [place], [place] [address] [place] [phone] Kerrie Vela M.B., B.ChForeign, M.D. [address] [place] [phone] 11/20/2024 8:20 AM CDT Office Visit Department of Oncology in [place], [place] [address] [place] [phone] Dawood Ruiz P.A.-C. [address] [place] [phone] 11/20/2024 9:00 AM CDT Infusion Department of Oncology in [place], [place] [address] [place] [phone] Kerrie Vela M.B., B.Ch., M.D. [address] [place] [phone] 12/04/2024 8:30 AM CDT Lab Department of Laboratory Medicine and Pathology, [facility], in [place], [place] [address] [place] [phone] Kerrie Vela M.B., B.Ch., M.D. [address] [place] [phone] 12/04/2024 10:20 AM CDT Office Visit Department of Oncology in [place], [place] [address] [place] [address] Kerrie Vela M.B., Trevor, MPhuc [address] [place] [address] 12/04/2024 11:00 AM CDT Infusion Department of Oncology in [place], [place] [address] [place] [address] Kerrie Vela M.B., Trevor, Alin [address] [place] [phone] Scheduled Referrals Name Type Priority Associated Diagnoses Orde r Schedule Oncology office visit (clinic) Outpatient Referral Routine Expected: 09/05/2024, Expires: 11/23/2025 documented as of this encounter Results * Magnesium (08/28/2024 1:53 PM CDT) Magnesium, P 1.9 1.7 - 2.3 mg/dL 08/28/2024 2:28 PM CDT OWAT Blood (Blood, Venous) 08/28/2024 1:53 PM CDT 08/28/2024 2:28 PM CDT Marlo Diallo M.D. LAB BLOOD ADD-ON Final Result [facility] [address] [place] [address], [place] OWAT [facility] in [place] [address] [place] [address] * (ABNORMAL) Comprehensive Metabolic Panel (08/28/2024 1:53 [...] Diallo M.D. LAB BLOOD ADD-ON Final Result [facility] [address] [place] [address], [place] [facility] [place] [address] [place] [address] * (ABNORMAL) CBC with Differential, Blood (08/28/2024 [...] Diallo M.D. LAB BLOOD ADD-ON Final Result [facility] [address] [place] [address], [place] 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 [address] [place] [address] PCP - General 11/11/16 documented as of this encounter
--- OUTSIDE RECORDS SUMMARY | 2024-09-13 12:40 | XMS_ITS | Encounter Summary ---
Author Organization [facility] Address [address] [place] [address] Care Team Providers Care Java Swing Developer Name Role Phone Jenny Vaca M.D. Primary Care Provider Encounter Details Date Type Department Care Team (Late st Contact Info) Description 08/23/2024 Orders Only Department of Oncology in [place], [place] [address] [place] [phone] Amina Jones R.N. [address] [place] [phone] Dysuria (Primary Dx) Social History Tobacco Use Types Packs/Day Years Used Date Smoking Tobacco: Every Day Cigarettes 0.5 60 Passive Smoke Exposure: Current Smokeless Tobacco: Never Alcohol Use Standard Drinks/Week Comments Yes 1 (1 standard drink = 0.6 oz pur e alcohol) 1 beer per night [facility] Utilities Answer Date Recorded In the past 12 months has e [employer], gas, oil, or water [employer] threatened to shut off services in your [...] any clubs o r organizations such as religious groups, unions, fraternal or athletic groups, or [...] Answer Date Recorded PHQ-2 Score 0 06/18/2024 [facility] - Occupational Stress [...] your living situation today? 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 [address] [place] [phone] 09/17/2024 1:30 PM CDT Office Visit Department of Internal Medicine in [place], [place] [address] [place] [address] Elissa Luo P.A.-C., M.S. [address] [place] [phone] 09/18/2024 8:00 AM CDT Clinical Support Department of Oncology in [address] [phone] Blossom Hernandez M.S.W., L.I.C.S.W. [address] [place] [phone] 09/20/2024 10:00 AM CDT Telemedicine Department of Oncology in [place], [place] [address] [place] [phone] Kerrie Vela M.B., B.ChForeign, M.D. [address] [place] [phone] 09/24/2024 8:30 AM CDT Lab Department of Oncology in [place], [place] [address] [place] [phone] Kerrie Vela M.B., B.Ch., M.D. [address] [place] [phone] 09/24/2024 9:40 AM CDT Office Visit Department of Oncology in [place], [place] [address] [place] [phone] Kerrie Vela M.B., B.ChForeign, MPhuc [address] [place] [phone] 09/24/2024 10:20 AM CDT Education Department of Oncology in [place], [place] [address] [place] [phone] Kerrie Vela M.B., Trevor, MPhuc [address] [place] [phone] 09/24/2024 11:30 AM CDT Appointment [facility], [facility], [facility] [address] [place] [phone] Kerrie Vela M.B., Trevor, MPhuc [address] [place] [phone] 09/25/2024 8:30 AM CDT Appointment [facility], [facility], [facility] [address] [place] [phone] Kerrie Vela M.B., Trevor, MPhuc [address] [place] [phone] 09/26/2024 8:30 AM CDT Appointment [facility], [facility], [facility] [address] [place] [phone] Kerrie Vela M.B., B., M.DForeign [address] [place] [phone] 09/28/2024 11:45 AM CDT Lab Department of Oncology in [place], [place] [address] [place] [phone] Kerrie Vela M.B., Trevor, MPhuc [address] [place] [phone] 09/28/2024 1:40 PM CDT Office Visit Department of Oncology in [place], [place] [address] [place] [phone] Dawood Ruiz P.A.-C. [address] [place] [phone] 10/01/2024 8:00 AM CDT Appointment [facility], [facility], [facility] [address] [place] [phone] Kerrie Vela M.B., BDuran, M.DForeign [address] [place] [phone] 10/02/2024 8:00 AM CDT Appointment [facility], [facility], [facility] [address] [place] [phone] Kerrie Vela M.B., BForeignChForeign, M.DForeign [address] [place] [phone] 10/03/2024 8:00 AM CDT Appointment [facility], [facility], [facility] [address] [place] [phone] Kerrie Vela M.B., B.ChForeign, M.DForeign [address] [place] [phone] 10/10/2024 6:30 AM CDT Lab Department of Oncology in [place], [place] [address] [place] [phone] Kerrie Vela M.B., B.ChAlin Carrasquillo [address] [place] [phone] 10/10/2024 8:20 AM CDT Office Visit Department of Oncology in [place], [place] [address] [place] [phone] Brittney Stuart M.D. [address] [place] [phone] 10/10/2024 12:30 PM CDT Infusion Department of Oncology in [place], [place] [address] [place] [phone] Kerrie Vela M.B., B.ChForeign, M.DForeign [address] [place] [phone] 10/12/2024 11:20 AM CDT Office Visit Department of Oncology in [place], [place] [address] [place] [phone] Kerrie Vela M.B., B.Ch., M.D. [address] [place] [phone] 10/17/2024 1:00 PM CDT Office Visit Department of Ophthalmology in [place], [place] [address] [place] [phone] Tomás Mcbride M.D. [address] [place] [phone] 10/23/2024 8:45 AM CDT Lab Department of Oncology in [place], [place] [address] [place] [phone] Kerrie Vela M.B., B.Ch., M.D. [address] [place] [phone] 10/23/2024 11:00 AM CDT Office Visit Department of Oncology in [place], [place] [address] [place] [phone] Kerrie Vela M.B., B., MPhuc [address] [place] [phone] 10/23/2024 11:30 AM CDT Appointment Department of Radiology in [place], [place] [address] [place] [phone] Franny Dutta M.D. [address] [place] [phone] 10/24/2024 7:30 AM CDT Infusion Department of Oncology in [place], [place] [address] [place] [phone] Kerrie Vela M.B., B.ChForeign, MForeignDForeign [address] [place] [phone] 10/24/2024 11:00 AM CDT Appointment Department of Radiation Oncology in [place], [place] [address] [place] [phone] Franny Dutta M.D. [address] [place] [phone] 10/25/2024 11:00 AM CDT Office Visit Department of Oncology in [place], [place] [address] [place] [phone] Kerrie Vela M.B., B.ChForeign, M.DForeign [address] [place] [phone] 11/06/2024 7:00 AM CDT Lab Department of Oncology in [place], [place] [address] [place] [phone] Kerrie Vela M.B., BDuran, M.DForeign [address] [place] [phone] 11/06/2024 9:00 AM CDT Office Visit Department of Oncology in [place], [place] [address] [place] [address] Dawood Ruiz, P.A.-CForeign [address] [place] [phone] 11/06/2024 10:00 AM CDT Infusion Department of Oncology in [place], [place] [address] [place] [phone] Kerrie Vela M.B., BDuran, M.DForeign [address] [place] [phone] 11/20/2024 6:30 AM CDT Lab Department of Laboratory Medicine and Pathology, [facility], in [place], [place] [address] [place] [phone] Kerrie Vela M.B., BDuran, M.DForeign [address] [place] [phone] 11/20/2024 8:20 AM CDT Office Visit Department of Oncology in [place], [place] [address] [place] [phone] Dawood Ruiz, P.A.-CForeign [address] [place] [phone] 11/20/2024 9:00 AM CDT Infusion Department of Oncology in [place], [place] [address] [place] [phone] Kerrie Vela M.B., BDuran, M.DForeign [address] [place] [phone] 12/04/2024 8:30 AM CDT Lab Department of Laboratory Medicine and Pathology, [facility], in [place], [place] [address] [place] [address] Kerrie Vela M.B., BDuran, M.DForeign [address] [place] [phone] 12/04/2024 10:20 AM CDT Office Visit Department of Oncology in [place], [place] [address] [place] [phone] Kerrie Vela M.B., BDuran, M.Lorena. [address] [place] [phone] 12/04/2024 11:00 AM CDT Infusion Department of Oncology in [place], [place] [address] [place] [address] Kerrie Vela M.B., B.ChForeign, M.D. [address] [place] [phone] documented as of this encounter Results * Bacterial Culture, Aerobic + Susceptibility, Urine (08/23/2024 9:34 AM CDT) Urine Culture Urogenital microbiota, susceptibilities not performed per laboratory criteria. 08/24/2024 8:11 AM CDT TO Urine (Urine, Midstream) 08/23/2024 9:34 AM CDT 08/23/2024 2:09 PM CDT Comment:Specimen Source Site : Urine us Mario Maldonado M.D. LAB MICROBIOLOGY - GENERAL OR DERABLES Final Result [facility] [address] [place] [address], [facility] [place] [address] [place] [address] * (ABNORMAL) Urinalysis, with Microscopic: Urine, Midstream [...] 8.0 08/23/2024 10:08 AM CDT OWAT Specific [place] 1.018 1.001 - 1.035 08/23/2024 10:08 AM [...] M.D. LAB URINE ORDERABLES Final Re sult [facility] [address] [place] [address], [place] OWAT [facility] [place] [address] [place] [address] documented in this encounter Visit Diagnoses Diagnosis Dysuria- Primary documented in this encounter Additional Health Concerns Infection Onset Date Last Indicated Resolved Time Protective Environment 07/05/2024 07/05/202409/02 6:26 AM CDT Assessment Noted Time PHQ-9 Depression Total Score: 0 07/04/19 9:20 AM CONCRETE GUN OPERATOR documented as of this encounter Care Teams Java Swing Developer Relationship Specialty Start Date End Date Jenny Vaca M.D. [address] [place] [phone] PCP - General 11/11/16 documented as of this encounter
--- OUTSIDE RECORDS SUMMARY | 2024-09-13 12:40 | XMS_ITS | Encounter Summary ---
Author Organization [facility] Address [address] [place] [address] Care Team Providers Care Finisher Hot Strip Name Role Phone Jenny Vaca M.D. Primary Care Provider [phone]- [phone] Reason for Visit * Reason Comments Med Refill Encounter Details Date Type Department Care Team (Late st Contact Info) Description 08/22/2024 Refill Department of Internal Medicine in [place], [place] [address] [phone] Jenny Vaca M.D. [address] [place] [address] [phone] Med Refill Social History Tobacco Use Types Packs/Day Years Used Date Smoking Tobacco: Every Day Cigarettes 0.5 60 Passive Smoke Exposure: Current Smokeless Tobacco: Never Alcohol Use Standard Drinks/Week Comments Yes 1 (1 standard drink = 0.6 oz pur e alcohol) 1 beer per night [facility] Utilities Answer Date Recorded In the past 12 months has th e electric, gas, oil, or water [employer] threatened to shut off services in your [...] How often do you attend chur or samaritan services? More than 4 times per year [...] Answer Date Recorded PHQ-2 Score 0 06/18/2024 [facility] of Occupat ional Health - Occupational Stress [...] your living situation today? I have a [facility] place to live 07/08/2023 Comments No Sex and Gender Information Value Date Recorded Sex Assigned at Not on file Legal Sex Female 8:27 AM BIOMEDICAL ENGINEERING TECHNICIAN Gender Identity Female 04/06/2017 8:58 AM BIOMEDICAL ENGINEERING TECHNICIAN Sexual Orientation Straight 04/06/2017 8: 58 AM BIOMEDICAL ENGINEERING TECHNICIAN documented as of this encounter Plan of Treatment Upcoming Encounters Date Type Department Care Team (Late st Contact Info) Description 09/14/2024 11:00 AM CDT Admin Visit Department of Oncology in [place], [place] [address] [place] [address] 09/17/2024 8:00 AM CDT Lab Department of Infusion Therapy in [place], [place] [address] [phone] Jenny Vaca M.D. [address] [phone] 09/17/2024 1:30 PM CDT Office Visit Department of Internal Medicine in [place], [place] [address] [phone] Elissa Luo P.A.-C., M.S. [address] [phone] 09/18/2024 8:00 AM CDT Clinical Support Department of Oncology in [place], [place] [address] [place] [phone] Blossom Hernandez, M.S.W., L.I.C.S.W. [address] [place] [phone] 09/20/2024 10:00 AM CDT Telemedicine Department of Oncology in [place], [place] [address] [place] [phone] Kerrie Vela M.B., B.Ch., M.D. [address] [place] [phone] 09/24/2024 8:30 AM CDT Lab Department of Oncology in [place], [place] [address] [place] [phone] Kerrie Vela M.B., B.Ch., M.D. [address] [place] [phone] 09/24/2024 9:40 AM CDT Office Visit Department of Oncology in [place], [place] [address] [place] [address] [phone] Kerrie Vela M.B., BDuran, MForeignDForeign [address] [place] [phone] 09/24/2024 10:20 AM CDT Education Department of Oncology in [place], [place] [address] [place] [phone] Kerrie Vela M.B., BDuran, M.DForeign [address] [place] [phone] 09/24/2024 11:30 AM CDT Appointment [facility], [facility], [facility] [address] [place] [phone] Kerrie Vela M.B., Trevor, M.DForeign [address] [place] [phone] 09/25/2024 8:30 AM CDT Appointment [facility], [facility], [facility] [address] [place] [phone] Kerrie Vela M.B., Trevor, M.DForeign [address] [place] [phone] 09/26/2024 8:30 AM CDT Appointment [facility], [facility], [facility] [address] [place] [phone] Kerrie Vela M.B., BDuran, M.DForeign [address] [place] [phone] 09/28/2024 11:45 AM CDT Lab Department of Oncology in [place], [place] [address] [place] [phone] Kerrie Vela M.B., BForeignChForeign, M.DForeign [address] [place] [phone] 09/28/2024 1:40 PM CDT Office Visit Department of Oncology in [place], [place] [address] [place] [address] Dawood Ruiz P.A.-C. [address] [place] [phone] 10/01/2024 8:00 AM CDT Appointment [facility], [facility] [address] [place] [phone] Kerrie Vela M.B., BForeignChForeign, M.DForeign [address] [place] [phone] 10/02/2024 8:00 AM CDT Appointment [facility], [facility], [facility] [address] [place] [phone] Kerrie Vela M.B., B.ChForeign, M.DForeign [address] [place] [phone] 10/03/2024 8:00 AM CDT Appointment [facility], [facility], [facility] [address] [place] [phone] Kerrie Vela M.B., B.ChForeign, M.DForeign [address] [place] [phone] 10/10/2024 6:30 AM CDT Lab Department of Oncology in [place], [place] [address] [place] [phone] Kerrie Vela M.B., B.ChForeign, M.DForeign [address] [place] [phone] 10/10/2024 8:20 AM CDT Office Visit Department of Oncology in [place], [place] [address] [place] [phone] Brittney Stuart M.D. [address] [place] [phone] 10/10/2024 12:30 PM CDT Infusion Department of Oncology in [place], [place] [address] [place] [phone] Kerrie Vela M.B., B.ChForeign, M.D. [address] [place] [phone] 10/12/2024 11:20 AM CDT Office Visit Department of Oncology in [place], [place] [address] [place] [phone] Kerrie Vela M.B., B.ChForeign, M.D. [address] [place] [phone] 10/17/2024 1:00 PM CDT Office Visit Department of Ophthalmology in [place], [place] [address] [place] [phone] Tomás Mcbride M.D. [address] [place] [phone] 10/23/2024 8:45 AM CDT Lab Department of Oncology in [place], [place] [address] [place] [phone] Kerrie Vela M.B., B.ChForeign, M.DForeign [address] [place] [phone] 10/23/2024 11:00 AM CDT Office Visit Department of Oncology in [place], [place] [address] [place] [phone] Kerrie Vela M.B., BDuran, M.DForeign [address] [place] [phone] 10/23/2024 11:30 AM CDT Appointment Department of Radiology in [place], [place] [address] [place] [address] Franny Dutta M.D. [address] [place] [phone] 10/24/2024 7:30 AM CDT Infusion Department of Oncology in [place], [place] [address] [place] [phone] Kerrie Vela M.B., BDuran, M.DForeign [address] [place] [phone] 10/24/2024 11:00 AM CDT Appointment Department of Radiation Oncology in [place], [place] [address] [place] [phone] Franny Dutta M.D. [address] [place] [phone] 10/25/2024 11:00 AM CDT Office Visit Department of Oncology in [place], [place] [address] [place] [phone] Kerrie Vela M.B., B., M.D. [address] [place] [phone] 11/06/2024 7:00 AM CDT Lab Department of Oncology in [place], [place] [address] [place] [phone] Kerrie Vela M.B., BDuran, M.Cecelia [address] [place] [phone] 11/06/2024 9:00 AM CDT Office Visit Department of Oncology in [place], [place] [address] [place] [phone] Dawood Ruiz, P.A.-CForeign [address] [place] [phone] 11/06/2024 10:00 AM CDT Infusion Department of Oncology in [place], [place] [address] [place] [phone] Kerrie Vela M.B., BDuran, M.Cecelia [address] [place] [phone] 11/20/2024 6:30 AM CDT Lab Department of Laboratory Medicine and Pathology, [facility], in [place], [place] [address] [place] [phone] Kerrie Vela M.B., BDuran, M.Cecelia [address] [place] [phone] 11/20/2024 8:20 AM CDT Office Visit Department of Oncology in [place], [place] [address] [place] [phone] Dawood Ruiz, P.A.-CForeign [address] [place] [phone] 11/20/2024 9:00 AM CDT Infusion Department of Oncology in [place], [place] [address] [place] [phone] Kerrie Vela M.B., Trevor, MPhuc [address] [place] [phone] 12/04/2024 8:30 AM CDT Lab Department of Laboratory Medicine and Pathology, [facility], in [place], [place] [address] [place] [address] Kerrie Vela M.B., BDuran, M.Cecelia [address] [place] [phone] 12/04/2024 10:20 AM CDT Office Visit Department of Oncology in [place], [place] [address] [place] [phone] Kerrie Vela M.B., Trevor, M.eCcelia [address] [place] [phone] 12/04/2024 11:00 AM CDT Infusion Department of Oncology in [place], [place] [address] [place] [phone] Kerrie Vela M.B., BDuran, M.DForeign [address] [place] [phone] documented as of this encounter Visit Diagnoses Not on filedocumented in this encounter Additional Health Concerns Infection Onset Date Last Indicated Resolved Time Protective Environment 07/05/2024 07/05/202409/02 6:26 AM CDT Assessment Noted Time PHQ-9 Depression Total Score: 0 07/04/19 24 9:20 AM BIOMEDICAL ENGINEERING TECHNICIAN documented as of this encounter Care Teams Finisher Hot Strip Relationship Specialty Start Date End Date Jenny Vaca M.D. [address] [phone] PCP - General 11/11/16 documented as of this encounter
--- OUTSIDE RECORDS SUMMARY | 2024-09-13 12:40 | XMS_ITS | Encounter Summary ---
Author Organization [facility] Address [address] [place] [address] Care Team Providers Care Mill Manager Name Role Phone Jenny Vaca M.D. Primary Care Provider [phone]- [phone] Encounter Details Date Type Department Care Team (Late st Contact Info) Description 08/17/2024 Clinical Communication Department of Internal Medicine in [place], [place] [address] [place] [phone] Jenny Vaca M.D. [address] [place] [phone] Social History Tobacco Use Types Packs/Day Years Used Date Smoking Tobacco: Every Day Cigarettes 0.5 60 Passive Smoke Exposure: Current Smokeless Tobacco: Never Alcohol Use Standard Drinks/Week Comments Yes 1 (1 standard drink = 0.6 oz pur e alcohol) 1 beer per night [facility] Utilities Answer Date Recorded In the past 12 months has e electric, gas, oil, or water [email or web address] threatened to shut off services in your [...] How often do you attend chur or roman catholic services? More than 4 times per year [...] Answer Date Recorded PHQ-2 Score 0 06/18/2024 [facility] of Occupat ional Health - Occupational [...] your living situation today? I have a [facility] place to live 07/08/2023 Comments No Sex and Gender Information Value Date Recorded Sex Assigned at Not on file Legal Sex Female 8:27 AM ELECTRICAL INSTRUMENT TECHNICIAN Gender Identity Female 04/06/2017 8:58 AM ELECTRICAL INSTRUMENT TECHNICIAN Sexual Orientation Straight 04/06/2017 8: 58 AM ELECTRICAL INSTRUMENT TECHNICIAN documented as of this encounter Miscellaneous Notes * Telephone Encounter - Radha Mckeon - 08/17/2024 3:41 PM CDT ----- Message from Nurse Huynh sent at 08/17/2024 1:38 PM CDT ----- Treatment being deferred due to UTI and antibiotics. I have updated plan to reflect this. DOS Please update accordingly. If able labs could be on 08/23 and treatment 08/24 as she will have completed her antibiotics. Please leave scans and provider follow up as scheduled, but update remaining appts. Thanks Amina documented in this encounter Plan of Treatment Upcoming Encounters Date Type Department Care Team (Late st Contact Info) Description 09/14/2024 11:00 AM CDT Admin Visit Department of Oncology in [address] [phone] 09/17/2024 8:00 AM CDT Lab Department of Infusion Therapy in [place], [place] [address] [phone] Jenny Vaca M.D. [address] [phone] 09/17/2024 1:30 PM CDT Office Visit Department of Internal Medicine in [place], [place] [address] [phone] Elissa Luo, P.A.-C., M.S. [address] [phone] 09/18/2024 8:00 AM CDT Clinical Support Department of Oncology in [address] [phone] Blossom Hernandez M.S.W., L.I.C.S.W. [address] [place] [phone] 09/20/2024 10:00 AM CDT Telemedicine Department of Oncology in [address] [phone] Kerrie Vela M.B., B.Ch., M.D. [address] [place] [phone] 09/24/2024 8:30 AM CDT Lab Department of Oncology in [place], [place] [address] [place] [phone] Kerrie Vela M.B., BForeignChForeign, M.DForeign [address] [place] [phone] 09/24/2024 9:40 AM CDT Office Visit Department of Oncology in [place], [place] [address] [place] [phone] Kerrie Vela M.B., B.ChForeign, M.D. [address] [place] [phone] 09/24/2024 10:20 AM CDT Education Department of Oncology in [place], [place] [address] [place] [phone] Kerrie Vela M.B., B.Ch., M.D. [address] [place] [phone] 09/24/2024 11:30 AM CDT Appointment [facility], [facility], [facility] [address] [place] [phone] Kerrie Vela M.B., B.ChForeign, M.DForeign [address] [place] [phone] 09/25/2024 8:30 AM CDT Appointment [facility], [facility], [facility] Level [address] [place] [phone] Kerrie Vela M.B., B.Ch., M.DForeign [address] [place] [phone] 09/26/2024 8:30 AM CDT Appointment [facility], [facility], [facility] [address] [place] [phone] Kerrie Vela M.B., BForeignChForeign, M.DForeign [address] [place] [phone] 09/28/2024 11:45 AM CDT Lab Department of Oncology in [place], [place] [address] [place] [phone] Kerrie Vela M.B., B.ChForeign, M.DForeign [address] [place] [phone] 09/28/2024 1:40 PM CDT Office Visit Department of Oncology in [place], [place] [address] [place] [phone] Dawood Ruiz P.A.-C. [address] [place] [phone] 10/01/2024 8:00 AM CDT Appointment [facility], [facility], [facility] [address] [place] [phone] Kerrie Vela M.B., B.Ch., M.DForeign [address] [place] [phone] 10/02/2024 8:00 AM CDT Appointment [facility], [facility], [facility] [address] [place] [phone] Kerrie Vela M.B., B.ChForeign, M.DForeign [address] [place] [phone] 10/03/2024 8:00 AM CDT Appointment [facility], [facility], [facility], Lobby Level [address] [place] [address] Kerrie Vela M.B., BDuran, M.Cecelia [address] [place] [phone] 10/10/2024 6:30 AM CDT Lab Department of Oncology in [place], [place] [address] [place] [phone] Kerrie Vela M.B., B.ChForeign, M.DForeign [address] [place] [phone] 10/10/2024 8:20 AM CDT Office Visit Department of Oncology in [place], [place] [address] [place] [phone] Brittney Stuart M.D. [address] [place] [phone] 10/10/2024 12:30 PM CDT Infusion Department of Oncology in [place], [place] [address] [place] [phone] Kerrie Vela M.B., B.Ch., M.DForeign [address] [place] [address] [phone] 10/12/2024 11:20 AM CDT Office Visit Department of Oncology in [place], [place] [address] [place] [phone] Kerrie Vela M.B., B., M.D. [address] [place] [phone] 10/17/2024 1:00 PM CDT Office Visit Department of Ophthalmology in [place], [place] [address] [place] [address] Tomás Mcbride M.D. [address] [place] [address] 10/23/2024 8:45 AM CDT Lab Department of Oncology in [place], [place] 200 [place] [address] Kerrie Vela M.B., BDuran, M.DForeign [address] [place] [phone] 10/23/2024 11:00 AM CDT Office Visit Department of Oncology in [place], [place] [address] [place] [address] Kerrie Vela M.B., BDuran, M.DForeign [address] [place] [phone] 10/23/2024 11:30 AM CDT Appointment Department of Radiology in [place], [place] [address] [place] [phone] Franny Dutta M.D. [address] [place] [phone] 10/24/2024 7:30 AM CDT Infusion Department of Oncology in [place], [place] [address] [place] [address] Kerrie Vela M.B., B., M.DForeign [address] [place] [phone] 10/24/2024 11:00 AM CDT Appointment Department of Radiation Oncology in [place], [place] [address] [place] [phone] Franny Dutta M.D. [address] [place] [phone] 10/25/2024 11:00 AM CDT Office Visit Department of Oncology in [place], [place] [address] [place] [phone] Kerrie Vela M.B., B.ChForeign, M.DForeign [address] [place] [phone] 11/06/2024 7:00 AM CDT Lab Department of Oncology in [place], [place] [address] [place] [phone] Kerrie Vela M.B., B.ChForeign, M.DForeign [address] [place] [phone] 11/06/2024 9:00 AM CDT Office Visit Department of Oncology in [place], [place] [address] [place] [phone] Dawood Ruiz P.A.-C. [address] [place] [phone] 11/06/2024 10:00 AM CDT Infusion Department of Oncology in [address] [phone] Kerrie Vela M.B., B.ChForeign, M.DForeign [address] [place] [phone] 11/20/2024 6:30 AM CDT Lab Department of Laboratory Medicine and Pathology, [facility], in [place], [place] [address] [place] [phone] Kerrie Vela M.B., B.ChForeign, M.DForeign [address] [place] [phone] 11/20/2024 8:20 AM CDT Office Visit Department of Oncology in [place], [place] [address] [place] [phone] Dawood Ruiz P.A.-C. [address] [place] [phone] 11/20/2024 9:00 AM CDT Infusion Department of Oncology in [place], [place] [address] [place] [phone] Kerrie Vela M.B., B.Ch., M.D. [address] [place] [phone] 12/04/2024 8:30 AM CDT Lab Department of Laboratory Medicine and Pathology, [facility] in [place], [place] [address] [place] [phone] Kerrie Vela M.B., B.Ch., M.D. [address] [place] [phone] 12/04/2024 10:20 AM CDT Office Visit Department of Oncology in [place], [place] [address] [place] [phone] Kerrie Vela M.B., B.Ch., M.D. [address] [place] [phone] 12/04/2024 11:00 AM CDT Infusion Department of Oncology in [place], [place] [address] [place] [phone] Kerrie Vela M.B., B.Ch., M.D. [address] [place] [phone] documented as of this encounter Visit Diagnoses Not on filedocumented in this encounter Additional Health Concerns Infection Onset Date Last Indicated Resolved Time Protective Environment 07/05/2024 07/05/202409/02 6:26 AM CDT Assessment Noted Time PHQ-9 Depression Total Score: 0 07/04/19 9:20 AM ELECTRICAL INSTRUMENT TECHNICIAN documented as of this encounter Care Teams Mill Manager Relationship Specialty Start Date End Date Jenny Vaca M.D. [address] [place] [phone] PCP - General 11/11/16 documented as of this encounter
--- OUTSIDE RECORDS SUMMARY | 2024-09-13 12:41 | XMS_ITS | Encounter Summary ---
Author Organization [facility] Address [address] [place] [address] Care Team Providers Care Bait Tier Name Role Phone Jenny Vaca M.D. Primary Care Provider Encounter Details Date Type Department Care Team (Latest Contact Info) Description 08/17/2024 8:48 AM CDT - 08/17/2024 11:59 PM CDT Hospital Encounter Department of Laboratory Medicine in [place], [place] [address] [place] [phone] Marion Ordoñez M.D. [address] [place] [phone] Dysuria Discharge Disposition: Home or Self Care Social History Tobacco Use Types Packs/Day Years Used Date Smoking Tobacco: Every Day Cigarettes 0.5 60 Passive Smoke Exposure: Current Smokeless Tobacco: Never Alcohol Use Standard Drinks/Week Comments Yes 1 (1 standard drink = 0.6 oz pur e alcohol) 1 beer per night [facility] Utilities Answer Date Recorded In the past 12 months has [facility], gas, oil, or water [employer] threatened to shut off services in your [...] How often do you attend chur or judaism services? More than 4 times per year [...] Answer Date Recorded PHQ-2 Score 0 06/18/2024 [facility] - Occupational Stress [...] your living situation today? I have a [facility] place to live 07/08/2023 Comments No Sex and Gender Information Value Date Recorded Sex Assigned at Not on file Legal Sex Female 8:27 AM FORENSICS TEAM DIRECTOR Gender Identity Female 04/06/2017 8:58 AM FORENSICS TEAM DIRECTOR Sexual Orientation Straight 04/06/2017 8: 58 AM FORENSICS TEAM DIRECTOR documented as of this encounter Medications at [...] DAILY 500 strip 3 1 blood-glucose meter,continuous (ListarStyle [place] 3 [place]) 1 each (1 Device total) as directed. [...] times a week. 42.5 g 5 4 fluticasone propionate (FLONASE) 50 mcg/actuation nasal spray [...] under the skin. lancets (ACCU-CHEK SOFTCLIX LANCETS) [facility] Use to test 4 times daily Dx: [...] Glomerular Filtration Rate (GFR) 30 To 44 ([facility]) Take 1 tablet (25 mg total) [...] tablet 3 5 06/22/19 26 propylene glycoL (Carefree Meibo Tears) 0.6 % ophthalmic solution Administer [...] 7 days. 14 tablet 5 08/25/19 25 dapagliflozin propanediol (Farxiga) 5 mg tablet Take 1 tablet (5 mg total) by mouth daily. 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 30 tablet 3 4 09/13/19 25 documented as of this encounter Plan of Treatment Upcoming Encounters Date Type Department Care Team (Late st Contact Info) Description 09/14/2024 11:00 AM CDT Admin Visit Department of Oncology in [place], [place] [address] [place] [phone] 09/17/2024 8:00 AM CDT Lab Department of Infusion Therapy in [place], [place] [address] [phone] Jenny Vaca M.D. [address] [phone] 09/17/2024 1:30 PM CDT Office Visit Department of Internal Medicine in [place], [place] [address] [phone] Elissa Luo P.A.-C., M.S. [address] [phone] 09/18/2024 8:00 AM CDT Clinical Support Department of Oncology in [address] [phone] Blossom Hernandez M.S.W., L.I.C.S.W. [address] [place] [phone] 09/20/2024 10:00 AM CDT Telemedicine Department of Oncology in [place], [place] [address] [place] [phone] Kerrie Vela M.B., B.Ch., M.D. [address] [place] [phone] 09/24/2024 8:30 AM CDT Lab Department of Oncology in [place], [place] [address] [place] [phone] Kerrie Vela M.B., BForeignChForeign, M.DForeign [address] [place] [phone] 09/24/2024 9:40 AM CDT Office Visit Department of Oncology in [place], [place] [address] [place] [phone] Kerrie Vela M.B., BForeignChForeign, M.DForeign [address] [place] [phone] 09/24/2024 10:20 AM CDT Education Department of Oncology in [place], [place] [address] [place] [phone] Kerrie Vela M.B., BDuran, M.DForeign [address] [place] [phone] 09/24/2024 11:30 AM CDT [place]ointment [facility] [address] [phone] Kerrie Vela M.B., B.ChForeign, M.DForeign [address] [place] [phone] 09/25/2024 8:30 AM CDT Appointment [facility], [facility], [facility] [address] [place] [phone] Kerrie Vela M.B., B.ChForeign, M.D. [address] [place] [phone] 09/26/2024 8:30 AM CDT Appointment [facility] [address] [place] [phone] Kerrie Vela M.B., BDuran, M.DForeign [address] [place] [phone] 09/28/2024 11:45 AM CDT Lab Department of Oncology in [place], [place] [address] [place] [phone] Kerrie Vela M.B., BDuran, M.DForeign [address] [place] [phone] 09/28/2024 1:40 PM CDT Office Visit Department of Oncology in [place], [place] [address] [place] [phone] Dawood Ruiz P.A.-C. [address] [place] [phone] 10/01/2024 8:00 AM CDT Appointment [facility] [address] [place] [phone] Kerrie Vela M.B., B.ChForeign, M.DForeign [address] [place] [phone] 10/02/2024 8:00 AM CDT Appointment [facility], [facility], [facility] [address] [place] [phone] Kerrie Vela M.B., B.ChForeign, M.DForeign [address] [place] [phone] 10/03/2024 8:00 AM CDT Appointment [facility] [address] [place] [phone] Krerie Vela M.B., BDuran, M.DForeign [address] [place] [phone] 10/10/2024 6:30 AM CDT Lab Department of Oncology in [place], [place] [address] [place] [phone] Kerrie Vela M.B., B.ChForeign, M.DForeign [address] [place] [phone] 10/10/2024 8:20 AM CDT Office Visit Department of Oncology in [place], [place] [address] [place] [phone] Brittney Stuart M.D. [address] [place] [phone] 10/10/2024 12:30 PM CDT Infusion Department of Oncology in [place], [place] [address] [place] [phone] Kerrie Vela M.B., B.ChForeign, M.DForeign [address] [place] [phone] 10/12/2024 11:20 AM CDT Office Visit Department of Oncology in [place], [place] [address] [place] [phone] Kerrie Vela M.B., B.ChForeign, M.DForeign [address] [place] [phone] 10/17/2024 1:00 PM CDT Office Visit Department of Ophthalmology in [place], [place] [address] [place] [phone] Tomás Mcbride M.D. [address] [place] [phone] 10/23/2024 8:45 AM CDT Lab Department of Oncology in [place], [place] [address] [place] [address] Kerrie Vela M.B., BDuran, M.D. [address] [place] [phone] 10/23/2024 11:00 AM CDT Office Visit Department of Oncology in [place], [place] [address] [place] [phone] Kerrie Vela M.B., BDuran, M.Lorena. [address] [place] [phone] 10/23/2024 11:30 AM CDT Appointment Department of Radiology in [place], [place] [address] [place] [phone] Franny Dutta M.D. [address] [place] [phone] 10/24/2024 7:30 AM CDT Infusion Department of Oncology in [place], [place] [address] [place] [phone] Kerrie Vela M.B., B., MForeignDForeign [address] [place] [phone] 10/24/2024 11:00 AM CDT Appointment Department of Radiation Oncology in [place], [place] [address] [place] [phone] Franny Dutta M.D. [address] [place] [phone] 10/25/2024 11:00 AM CDT Office Visit Department of Oncology in [place], [place] [address] [place] [phone] Kerrie Vela M.B., BDuran, M.Cecelia [address] [place] [phone] 11/06/2024 7:00 AM CDT Lab Department of Oncology in [place], [place] [address] [place] [phone] Kerrie Vela M.B., BDuran, M.DForeign [address] [place] [phone] 11/06/2024 9:00 AM CDT Office Visit Department of Oncology in [place], [place] [address] [place] [phone] Dawood Ruiz P.A.-C. [address] [place] [phone] 11/06/2024 10:00 AM CDT Infusion Department of Oncology in [place], [place] [address] [place] [phone] Kerrie Vela M.B., B.ChForeign, M.DForeign [address] [place] [phone] 11/20/2024 6:30 AM CDT Lab Department of Laboratory Medicine and Pathology, [facility], in [place], [place] [address] [place] [phone] Kerrie Vela M.B., B.ChForeign, M.DForeign [address] [place] [phone] 11/20/2024 8:20 AM CDT Office Visit Department of Oncology in [place], [place] [address] [place] [phone] Dawood Ruiz P.A.-C. [address] [place] [phone] 11/20/2024 9:00 AM CDT Infusion Department of Oncology in [place], [place] [address] [place] [phone] Kerrie Vela M.B., B.ChForeign, M.DForeign [address] [place] [phone] 12/04/2024 8:30 AM CDT Lab Department of Laboratory Medicine and Pathology, [facility] in [place], [place] [address] [place] [phone] Kerrie Vela M.B., B.ChForeign, M.D. [address] [place] [phone] 12/04/2024 10:20 AM CDT Office Visit Department of Oncology in [place], [place] [address] [place] [phone] Kerrie Vela M.B., B.ChForeign, M.D. [address] [place] [phone] 12/04/2024 11:00 AM CDT Infusion Department of Oncology in [place], [place] [address] [place] [phone] Kerrie Vela M.B., B.Ch., M.D. [address] [place] [phone] documented as of this encounter Procedures Procedure Name Priority Date/Time Associated Diagnosis Comments BACTERIAL CULTURE, AEROBIC + SUSC, URINE Routine 08/17/2024 9:32 AM CDT Dysuria URINALYSIS WITH MICROSCOPIC Routine 08/17/2024 9:32 AM CDT Dysuria documented in this encounter Results * (ABNORMAL) Bacterial Culture, Aerobic + Susceptibility, Urine (08/17/2024 9:32 AM CDT) Urine Culture STAPHYLOCOCCUS LUGDUNENSIS >100,000 cfu/mL (A) 08/19/2024 5:01 AM CDT [facility] Urine (Urine, Midstream) 08/17/2024 9:32 AM CDT 08/17/2024 1:38 PM CDT Comment:Specimen Source Site : Urine Narrative Organism Antibiotic Method Susceptibility Staphylococcus lugdunensis Oxacillin SUSCEPTIBILITY, JAVIER (MCG/ML) >=4 mcg/mL: Resistant Comment: Use oxacillin interpretation to predict results for anti-staphylococcal beta-lactam antibiotics (except ceftaroline). Staphylococcus lugdunensis Gentamicin SUSCEPTIBILITY, JAVIER (MCG/ML) <=0.5 mcg/mL: Susceptible Staphylococcus lugdunensis Ciprofloxacin SUSCEPTIBILITY, JAVIER (MCG/ML) <=0.5 mcg/mL: Susceptible Staphylococcus lugdunensis Daptomycin SUSCEPTIBILITY, JAVIER (MCG/ML) 0.5 mcg/mL: Susceptible Staphylococcus lugdunensis Vancomycin SUSCEPTIBILITY, JAVIER (MCG/ML) <=0.5 mcg/mL: Susceptible Staphylococcus lugdunensis Doxycycline SUSCEPTIBILITY, JAVIER (MCG/ML) <=0.5 mcg/mL: Susceptible Staphylococcus lugdunensis Nitrofurantoin SUSCEPTIBILITY, JAVIER (MCG/ML) <=16 mcg/mL: Susceptible Staphylococcus lugdunensis Trimethoprim + Sulfamethoxazole SUSCEPTIBILITY, JAVIER (MCG/ML) <=10 mcg/mL: Susceptible us Marion Ordoñez M.D. LAB MICROBIOLOGY - GENERAL ORDER CELESTINO Final Result [facility] [address] [place] [address], [facility] [address] [place] [address] * (ABNORMAL) Urinalysis, with Microscopic: Urine, Midstream (08/17/2024 9:32 AM CDT) Source Urine, Urine, Midstream 08/17/2024 9:37 AM CDT OWAT Clarity Turbid(A) Clear 08/17/2024 9:37 AM CDT OWAT Color Yellow 08/17/2024 9:37 AM CDT OWAT Comment: ----REFERENCE VALUE---- Colorless Yellow [place] Blood Trace(A) Negative 08/17/2024 9:37 AM CDT OWAT Nitrite Negative Negative 08/17/2024 9:37 AM CDT OWAT Leukocyte Esterase Moderate(A) Negative 08/17/2024 9:37 AM CDT OWAT Protein 30(A) mg/dL 08/17/2024 9:37 AM CDT OWAT Comment: ----REFERENCE VALUE---- Negative Trace Glucose 250(A) Negative mg/dL 08/17/2024 9:37 AM CDT OWAT Ketone Negative Negative mg/dL 08/17/2024 9:37 AM CDT OWAT Bilirubin Negative Negative 08/17/2024 9:37 AM CDT OWAT pH 5.5 5.0 - 8.0 08/17/2024 9:37 AM CDT OWAT Specific [place] 1.017 1.001 - 1.035 08/17/2024 9:37 AM CDT OWAT Urobilinogen 1.0 0.2 - 1.0 mg/dL 08/17/2024 9:37 AM CDT OWAT White Blood Cells >100(A) /hpf 08/17/2024 9:52 AM CDT OWAT Comment: ----REFERENCE VALUE---- Males: 0-3 Females: 0-10 Unknown: 0-10 Red Blood Cells 3-10(A) 0 - 2 /hpf 9:52 AM CDT OWAT Dysmorphic Red Blood Cells <=25 <=25 % 08/17/2024 9:52 AM CDT OWAT Squamous Cells 4-10 /hpf 08/17/2024 9:52 AM CDT OWAT Bacteria Present(A) None Seen 08/17/2024 9:52 AM CDT OWAT Urine (Urine, Midstream) 08/17/2024 9:32 AM CDT 08/17/2024 9:32 AM CDT us Marion Ordoñez M.D. LAB URINE ORDERABLES Final Resul t [facility] [address] [place] [address], [place] OWAT [facility] [place] [address] [place] [address] documented in this encounter Visit Diagnoses Diagnosis Dysuria documented in this encounter Additional Health Concerns Infection Onset Date Last Indicated Resolved Time Protective Environment 07/05/2024 07/05/202409/02 6:26 AM CDT Assessment Noted Time PHQ-9 Depression Total Score: 0 07/04/19 9:20 AM FORENSICS TEAM DIRECTOR documented as of this encounter Care Teams Bait Tier Relationship Specialty Start Date End Date Jenny Vaca M.D. [address] [place] [phone] PCP - General 11/11/16 documented as of this encounter
--- OUTSIDE RECORDS SUMMARY | 2024-09-13 12:41 | XMS_ITS | Encounter Summary ---
Author Organization [facility] Address [address] [place] [address] Care Team Providers Care Flower Cutter Name Role Phone Jenny Vaca M.D. Primary Care Provider [phone] Reason for Visit * Reason Comments Med Refill Encounter Details Date Type Department Care Team (Late st Contact Info) Description 08/04/2024 Refill Department of Ophthalmology in [place], [place] [address] [phone] Tomás Mcbride M.D. [address] [place] [phone] Med Refill Social History Tobacco Use Types Packs/Day Years Used Date Smoking Tobacco: Every Day Cigarettes 0.5 60 Passive Smoke Exposure: Current Smokeless Tobacco: Never Alcohol Use Standard Drinks/Week Comments Yes 1 (1 standard drink = 0.6 oz pur e alcohol) 1 beer per night [facility] Utilities Answer Date Recorded In the past 12 months has th e [employer], gas, oil, or water [employer] threatened to shut off services in your [...] How often do you attend chur or sikh services? More than 4 times per year [...] Answer Date Recorded PHQ-2 Score 0 06/18/2024 [facility] - Occupational [...] your living situation today? I have a [facility] place to live 07/08/2023 Comments No Sex and Gender Information Value Date Recorded Sex Assigned at Not on file Legal Sex Female 8:27 AM CONTRACT NEGOTIATOR Gender Identity Female 04/06/2017 8:58 AM CONTRACT NEGOTIATOR Sexual Orientation Straight 04/06/2017 8: 58 AM CONTRACT NEGOTIATOR documented as of this encounter Plan of Treatment Upcoming Encounters Date Type Department Care Team (Late st Contact Info) Description 09/14/2024 11:00 AM CDT Admin Visit Department of Oncology in [place], [place] [address] [place] [address] 09/17/2024 8:00 AM CDT Lab Department of Infusion Therapy in [place], [place] [address] [phone] Jenny Vaca M.D. [address] [phone] 09/17/2024 1:30 PM CDT Office Visit Department of Internal Medicine in [place], [place] [address] [phone] Elissa Luo P.A.-C., M.S. [address] [phone] 09/18/2024 8:00 AM CDT Clinical Support Department of Oncology in [place], [place] [address] [place] [phone] Blossom Hernandez, M.S.W., L.I.C.S.W. [address] [place] [phone] 09/20/2024 10:00 AM CDT Telemedicine Department of Oncology in [place], [place] [address] [place] [phone] Kerrie Vela M.B., B.ChForeign, M.D. [address] [place] [phone] 09/24/2024 8:30 AM CDT Lab Department of Oncology in [place], [place] [address] [place] [phone] Kerrie Vela M.B., B.Ch., M.D. [address] [place] [phone] 09/24/2024 9:40 AM CDT Office Visit Department of Oncology in [place], [place] [address] [place] [phone] Kerrie Vela M.B., Trevor, MForeignDForeign [address] [place] [phone] 09/24/2024 10:20 AM CDT Education Department of Oncology in [place], [place] [address] [place] [phone] Kerrie Vela M.B., BDuran, M.DForeign [address] [place] [phone] 09/24/2024 11:30 AM CDT Appointment [facility], [facility], [facility] 201 [place] [phone] Kerrie Vela M.B., Trevor, M.DForeign [address] [place] [phone] 09/25/2024 8:30 AM CDT Appointment [facility], [facility], [facility] 201 [place] [phone] Kerrie Vela M.B., Trevor, M.DForeign [address] [place] [phone] 09/26/2024 8:30 AM CDT Appointment [facility], [facility], [facility] [address] [place] [phone] Kerrie Vela M.B., Trevor, M.DForeign [address] [place] [phone] 09/28/2024 11:45 AM CDT Lab Department of Oncology in [place], [place] [address] [place] [phone] Kerrie Vela M.B., BForeignChForeign, M.DForeign [address] [place] [phone] 09/28/2024 1:40 PM CDT Office Visit Department of Oncology in [place], [place] [address] [place] [phone] Dawood Ruiz P.A.-C. [address] [place] [phone] 10/01/2024 8:00 AM CDT Appointment [facility], [address] [phone] Kerrie Vela M.B., BForeignChForeign, M.DForeign [address] [place] [phone] 10/02/2024 8:00 AM CDT Appointment [facility], [facility], [facility] [address] [place] [phone] Kerrie Vela M.B., B.ChForeign, M.DForeign [address] [place] [phone] 10/03/2024 8:00 AM CDT Appointment [facility], [facility], [facility] [address] [place] [phone] Kerrie Vela M.B., B.Ch., M.DForeign [address] [place] [phone] 10/10/2024 6:30 AM CDT Lab Department of Oncology in [place], [place] [address] [place] [phone] Kerrie Vela M.B., B.ChForeign, M.DForeign [address] [place] [phone] 10/10/2024 8:20 AM CDT Office Visit Department of Oncology in [place], [place] [address] [place] [phone] Brittney Stuart M.D. [address] [place] [phone] 10/10/2024 12:30 PM CDT Infusion Department of Oncology in [place], [place] [address] [place] [phone] Kerrie Vela M.B., B.ChForeign, M.D. [address] [place] [phone] 10/12/2024 11:20 AM CDT Office Visit Department of Oncology in [place], [place] [address] [place] [phone] Kerrie Vela M.B., B.ChForeign, M.DForeign [address] [place] [phone] 10/17/2024 1:00 PM CDT Office Visit Department of Ophthalmology in [place], [place] [address] [place] [phone] Tomás Mcbride M.D. [address] [place] [phone] 10/23/2024 8:45 AM CDT Lab Department of Oncology in [place], [place] [address] [place] [phone] Kerrie Vela M.B., B.ChForeign, M.DForeign [address] [place] [phone] 10/23/2024 11:00 AM CDT Office Visit Department of Oncology in [place], [place] [address] [place] [phone] Kerrie Vela M.B., B., M.D. [address] [place] [phone] 10/23/2024 11:30 AM CDT Appointment Department of Radiology in [place], [place] [address] [place] [phone] Franny Dutta M.D. [address] [place] [phone] 10/24/2024 7:30 AM CDT Infusion Department of Oncology in [place], [place] [address] [place] [phone] Kerrie Vela M.B., B.ChForeign, M.DForeign [address] [place] [phone] 10/24/2024 11:00 AM CDT Appointment Department of Radiation Oncology in [place], [place] [address] [place] [phone] Franny Dutta M.D. [address] [place] [phone] 10/25/2024 11:00 AM CDT Office Visit Department of Oncology in [place], [place] [address] [place] [phone] Kerrie Vela M.B., B.ChForeign, M.D. [address] [place] [phone] 11/06/2024 7:00 AM CDT Lab Department of Oncology in [place], [place] [address] [place] [address] [place] [phone] Kerrie Vela M.B., BForeignChForeign, M.DForeign [address] [place] [phone] 11/06/2024 9:00 AM CDT Office Visit Department of Oncology in [place], [place] [address] [place] [phone] Dawood Ruiz P.A.-CForeign [address] [place] [phone] 11/06/2024 10:00 AM CDT Infusion Department of Oncology in [place], [place] [address] [place] [phone] Kerrie Vela M.B., B.ChForeign, M.DForeign [address] [place] [phone] 11/20/2024 6:30 AM CDT Lab Department of Laboratory Medicine and Pathology, [facility] in [place], [place] [address] [place] [phone] Kerrie Vela M.B., B.ChForeign, M.DForeign [address] [place] [phone] 11/20/2024 8:20 AM CDT Office Visit Department of Oncology in [place], [place] [address] [place] [phone] Dawood Ruiz, P.A.-CForeign [address] [place] [phone] 11/20/2024 9:00 AM CDT Infusion Department of Oncology in [place], [place] [address] [place] [address] Kerrie Vela M.B.Trevor, M.D. [address] [place] [phone] 12/04/2024 8:30 AM CDT Lab Department of Laboratory Medicine and Pathology, [facility], in [place], [place] [address] [place] [address] Kerrie Vela M.B., BDuran, M.Cecelia [address] [place] [phone] 12/04/2024 10:20 AM CDT Office Visit Department of Oncology in [place], [place] [address] [place] [phone] Kerrie Vela M.B., Trevor, M.Cecelia [address] [place] [phone] 12/04/2024 11:00 AM CDT Infusion Department of Oncology in [place], [place] [address] [place] [phone] Kerrie Vela M.B., B., M.DForeign [address] [place] [phone] documented as of this encounter Visit Diagnoses Not on filedocumented in this encounter Additional Health Concerns Infection Onset Date Last Indicated Resolved Time Protective Environment 07/05/2024 07/05/202409/02 6:26 AM CDT Assessment Noted Time PHQ-9 Depression Total Score: 0 07/04/19 24 9:20 AM CONTRACT NEGOTIATOR documented as of this encounter Care Teams Flower Cutter Relationship Specialty Start Date End Date Jenny Vaca M.D. [address] [place] [address] PCP - General 11/11/16 documented as of this encounter
--- OUTSIDE RECORDS SUMMARY | 2024-09-13 12:41 | XMS_ITS | Encounter Summary ---
Author Organization [facility] Address [address] [place] [address] Care Team Providers Care School Photographer Name Role Phone Jenny Vaca M.D. Primary Care Provider Encounter Details Date Type Department Care Team (Late st Contact Info) Description 08/17/2024 Orders Only Department of Oncology in [place], [place] [address] [phone] Amina Jones R.N. [address] [place] [phone] Dysuria (Primary Dx) Social History Tobacco Use Types Packs/Day Years Used Date Smoking Tobacco: Every Day Cigarettes 0.5 60 Passive Smoke Exposure: Current Smokeless Tobacco: Never Alcohol Use Standard Drinks/Week Comments Yes 1 (1 standard drink = 0.6 oz pur e alcohol) 1 beer per night [facility] Utilities Answer Date Recorded In the past 12 months has e [employer], gas, oil, or water [employer] threatened to shut off services in your [...] How often do you attend chur or christian services? More than 4 times per year 09/27/2022 Do you belong to any clubs o r organizations such as congregational groups, unions, fraternal or athletic groups, or [...] Answer Date Recorded PHQ-2 Score 0 06/18/2024 [facility] [place] [facility] Occupat ional Health - Occupational Stress [...] your living situation today? I have a [facility] place to live 07/08/2023 Comments No Sex and Gender Information Value Date Recorded Sex Assigned at Not on file Legal Sex Female 8:27 AM ELECTRONIC WIRER Gender Identity Female 04/06/2017 8:58 AM ELECTRONIC WIRER Sexual Orientation Straight 04/06/2017 8: 58 AM ELECTRONIC WIRER documented as of this encounter Plan of Treatment Upcoming Encounters Date Type Department Care Team (Late st Contact Info) Description 09/14/2024 11:00 AM CDT Admin Visit Department of Oncology in [place], [place] [address] [place] [address] 09/17/2024 8:00 AM CDT Lab Department of Infusion Therapy in [place], [place] [address] [place] [phone] Jenny Vaca M.D. [address] [place] [phone] 09/17/2024 1:30 PM CDT Office Visit Department of Internal Medicine in [place], [place] [address] [place] [address] Elissa Luo P.A.-C., M.S. [address] [place] [phone] 09/18/2024 8:00 AM CDT Clinical Support Department of Oncology in [address] [phone] Blossom Hernandez M.S.W., L.I.C.S.W. [address] [place] [phone] 09/20/2024 10:00 AM CDT Telemedicine Department of Oncology in [place], [place] [address] [place] [phone] Kerrie Vela M.B., B.ChForeign, M.D. [address] [place] [phone] 09/24/2024 8:30 AM CDT Lab Department of Oncology in [place], [place] [address] [place] [phone] Kerrie Vela M.B., B.Ch., M.D. [address] [place] [phone] 09/24/2024 9:40 AM CDT Office Visit Department of Oncology in [place], [place] [address] [place] [phone] Kerrie Vela M.B., B.ChForeign, MPhuc [address] [place] [phone] 09/24/2024 10:20 AM CDT Education Department of Oncology in [place], [place] [address] [place] [phone] Kerrie Vela M.B., Trevor, MPhuc [address] [place] [phone] 09/24/2024 11:30 AM CDT Appointment [facility], [facility], [facility] [address] [place] [phone] Kerrie Vela M.B., Trevor, MPhuc [address] [place] [phone] 09/25/2024 8:30 AM CDT Appointment [facility], [facility], [facility] [address] [place] [phone] Kerrie Vela M.B., Trevor, MPhuc [address] [place] [phone] 09/26/2024 8:30 AM CDT Appointment [facility], [facility], [facility] [address] [place] [phone] Kerrie Vela M.B., B., M.DForeign [address] [place] [phone] 09/28/2024 11:45 AM CDT Lab Department of Oncology in [place], [place] [address] [place] [phone] Kerrie Vela M.B., Trevor, MPhuc [address] [place] [phone] 09/28/2024 1:40 PM CDT Office Visit Department of Oncology in [place], [place] [address] [place] [phone] Dawood Ruiz P.A.-C. [address] [place] [phone] 10/01/2024 8:00 AM CDT Appointment [facility], [facility], [facility] [address] [place] [phone] Kerrie Vela M.B., BDuran, M.DForeign [address] [place] [phone] 10/02/2024 8:00 AM CDT Appointment [facility], [facility], [facility] [address] [place] [phone] Kerrie Vela M.B., BForeignChForeign, M.DForeign [address] [place] [phone] 10/03/2024 8:00 AM CDT Appointment [facility], [facility], [facility] [address] [place] [phone] Kerrie Vela M.B., B.ChForeign, M.DForeign [address] [place] [phone] 10/10/2024 6:30 AM CDT Lab Department of Oncology in [place], [place] [address] [place] [phone] Kerrie Vela M.B., B.ChAlin Carrasquillo [address] [place] [phone] 10/10/2024 8:20 AM CDT Office Visit Department of Oncology in [place], [place] [address] [place] [phone] Brittney Stuart M.D. [address] [place] [phone] 10/10/2024 12:30 PM CDT Infusion Department of Oncology in [place], [place] [address] [place] [phone] Kerrie Vela M.B., B.ChForeign, M.DForeign [address] [place] [phone] 10/12/2024 11:20 AM CDT Office Visit Department of Oncology in [place], [place] [address] [place] [phone] Kerrie Vela M.B., B.Ch., M.D. [address] [place] [phone] 10/17/2024 1:00 PM CDT Office Visit Department of Ophthalmology in [place], [place] [address] [place] [phone] Tomás Mcbride M.D. [address] [place] [phone] 10/23/2024 8:45 AM CDT Lab Department of Oncology in [place], [place] [address] [place] [phone] Kerrie Vela M.B., B.Ch., M.D. [address] [place] [phone] 10/23/2024 11:00 AM CDT Office Visit Department of Oncology in [place], [place] [address] [place] [phone] Kerrie Vela M.B., B., MPhuc [address] [place] [phone] 10/23/2024 11:30 AM CDT Appointment Department of Radiology in [place], [place] [address] [place] [phone] Franny Dutta M.D. [address] [place] [phone] 10/24/2024 7:30 AM CDT Infusion Department of Oncology in [place], [place] [address] [place] [phone] Kerrie Vela M.B., B.ChForeign, MForeignDForeign [address] [place] [phone] 10/24/2024 11:00 AM CDT Appointment Department of Radiation Oncology in [place], [place] [address] [place] [phone] Franny Dutta M.D. [address] [place] [phone] 10/25/2024 11:00 AM CDT Office Visit Department of Oncology in [place], [place] [address] [place] [phone] Kerrie Vela M.B., B.ChForeign, M.DForeign [address] [place] [phone] 11/06/2024 7:00 AM CDT Lab Department of Oncology in [place], [place] [address] [place] [phone] Kerrie Vela M.B., BDuran, M.DForeign [address] [place] [phone] 11/06/2024 9:00 AM CDT Office Visit Department of Oncology in [place], [place] [address] [place] [address] Dawood Ruiz, P.A.-CForeign [address] [place] [phone] 11/06/2024 10:00 AM CDT Infusion Department of Oncology in [place], [place] [address] [place] [phone] Kerrie Vela M.B., BDuran, M.DForeign [address] [place] [phone] 11/20/2024 6:30 AM CDT Lab Department of Laboratory Medicine and Pathology, [facility], in [place], [place] [address] [place] [phone] Kerrie Vela M.B., BDuran, M.DForeign [address] [place] [phone] 11/20/2024 8:20 AM CDT Office Visit Department of Oncology in [place], [place] [address] [place] [phone] Dawood Ruiz, P.A.-CForeign [address] [place] [phone] 11/20/2024 9:00 AM CDT Infusion Department of Oncology in [place], [place] [address] [place] [phone] Kerrie Vela M.B., BDuran, M.DForeign [address] [place] [phone] 12/04/2024 8:30 AM CDT Lab Department of Laboratory Medicine and Pathology, [facility], in [place], [place] [address] [place] [phone] Kerrie Vela M.B., B., M.DForeign [address] [place] [phone] 12/04/2024 10:20 AM CDT Office Visit Department of Oncology in [place], [place] [address] [place] [phone] Kerrie Vela M.B., BDuran, M.Lorena. [address] [place] [phone] 12/04/2024 11:00 AM CDT Infusion Department of Oncology in [place], [place] [address] [place] [phone] Kerrie Vela M.B., B.ChForeign, M.DForeign [address] [place] [phone] documented as of this encounter Results * (ABNORMAL) Bacterial Culture, Aerobic + Susceptibility, Urine (08/17/2024 9:32 AM CDT) Urine Culture STAPHYLOCOCCUS LUGDUNENSIS >100,000 cfu/mL (A) 08/19/2024 5:01 AM CDT MKTO Urine (Urine, Midstream) 08/17/2024 9:32 AM CDT [...] Sulfamethoxazole SUSCEPTIBILITY, JAVIER (MCG/ML) <=10 mcg/mL: Susceptible Marion Ordoñez M.D. LAB MICROBIOLOGY - GENERAL ORDER CELESTINO Final Result [facility] [address] [place] [address], [facility] in [place] [address] [place] [address] * (ABNORMAL) Urinalysis, with Microscopic: Urine, Midstream [...] 8.0 08/17/2024 9:37 AM CDT [employer]AT Specific Dazey 1.017 1.001 - 1.035 08/17/2024 9:37 AM [...] M.D. LAB URINE ORDERABLES Final Resul t [facility] [address] [place] [address], [facility] OWAT [facility] in [place] [address] [place] [address] documented in this encounter Visit Diagnoses Diagnosis Dysuria- Primary documented in this encounter Additional Health Concerns Infection Onset Date Last Indicated Resolved Time Protective Environment 07/05/2024 07/05/202409/02 6:26 AM CDT Assessment Noted Time PHQ-9 Depression Total Score: 0 07/04/19 9:20 AM ELECTRONIC WIRER documented as of this encounter Care Teams School Photographer Relationship Specialty Start Date End Date Jenny Vaca M.D. [address] [place] [phone] PCP - General 11/11/16 documented as of this encounter
--- OUTSIDE RECORDS SUMMARY | 2024-09-13 12:41 | XMS_ITS | Encounter Summary ---
Author Organization [facility] Address [address] [place] [address] Care Team Providers Care Relief Worker Name Role Phone Jenny Vaca M.D. Primary Care Provider Reason for Visit * Reason Onset Date Comments Urinary Symptom 08/17/2024 Back Pain 08/17/2024 Encounter Details Date Type Department Care Team (Late st Contact Info) Description 08/17/2024 Nurse Triage Department of Internal Medicine in [place], [place] [address], [place] [phone] Katherine Bhardwaj, RForeignNForeign Urinary Symptom; Back Pain Social History Tobacco Use Types Packs/Day Years Used Date Smoking Tobacco: Every Day Cigarettes 0.5 60 Passive Smoke Exposure: Current Smokeless Tobacco: Never Alcohol Use Standard Drinks/Week Comments Yes 1 (1 standard drink = 0.6 oz pur e alcohol) 1 beer per night [facility] Utilities Answer Date Recorded In the past 12 months has e [employer], gas, oil, or water [employer] threatened to shut off services in your [...] How often do you attend chur or anglican services? More than 4 times per year 09/27/2022 Do you belong to any clubs o r organizations such as sabianist groups, unions, fraternal or athletic groups, or [...] your living situation today? I have a [facility] place to live 07/08/2023 Comments No Sex and Gender Information Value Date Recorded Sex Assigned at Not on file Legal Sex Female 8:27 AM SURVEILLANCE TECHNICIAN Gender Identity Female 04/06/2017 8:58 AM SURVEILLANCE TECHNICIAN Sexual Orientation Straight 04/06/2017 8: 58 AM SURVEILLANCE TECHNICIAN documented as of this encounter Miscellaneous Notes * Telephone Encounter - Katherine Bhardwaj, RForeignN. - 08/17/2024 7:03 AM CDT Chief Complaint / Reason for Call Patient is a 79 y.o. female calling regarding Urinary Symptom and Back Pain. Assessment Concern: UTI concern Urinary urgency/frequency, lower back pain, lower abdominal burning sensation. Temp in 99's. Present for: 2-3 days Home cares tried: Tylenol Calling to request: appointment The recommended disposition is See a health care provider within 4 hours. ER is backup - Patient was provided scheduling phone number, plan of care, and transferred to scheduling per current regional process. and Encouraged patient to call back with any new, worsening, or persistent symptoms. Reason for Disposition Side (flank) or lower back pain present Protocols used: Urinary Izavwszs-Vrulp-UJ Care Advice Patient/Caregiver understands and will follow care advice?: Yes, able to teach back Urinary Aubgvecm-Nkvnc-FY Nurse Katherine Olson Aug 17, 2024 07:06 AM Care Advice SEE HCP (OR PCP TRIAGE) WITHIN 4 HOURS DRINK PLENTY OF LIQUIDS: * Drink plenty of liquids. It is important to stay well-hydrated. * A healthy adult should drink 8 cups (240 ml) or more of liquid each day. * How can you tell if you are drinking enough liquids? The goal is to keep the urine clear or light-yellow in color. If your urine is bright yellow or dark yellow, you are probably not drinking enough liquids. * Caution: Some medical problems require fluid restriction. CALL BACK IF: * Fever occurs * Unable to urinate and bladder feels full * You become worse documented in this encounter Plan of Treatment Upcoming Encounters Date Type Department Care Team (Late st Contact Info) Description 09/14/2024 11:00 AM CDT Admin Visit Department of Oncology in [place], [place] [address] [place] [address] 09/17/2024 8:00 AM CDT Lab Department of Infusion Therapy in [place], [place] [address], [place] [address] Jenny Vaca M.D. [address] [address] 09/17/2024 1:30 PM CDT Office Visit Department of Internal Medicine in [place], [place] [address], [place] [address] Elissa Luo P.A.-C., M.S. [address] [phone] 09/18/2024 8:00 AM CDT Clinical Support Department of Oncology in [place], [place] [address] [place] [phone] Blossom Hernandez M.S.W., L.I.C.S.W. [address] [place] [phone] 09/20/2024 10:00 AM CDT Telemedicine Department of Oncology in [place], [place] [address] [place] [phone] Kerrie Vela M.B., B.Ch., M.D. [address] [place] [phone] 09/24/2024 8:30 AM CDT Lab Department of Oncology in [place], [place] [address] [place] [phone] Kerrie Vela M.B., B.Ch., M.D. [address] [place] [phone] 09/24/2024 9:40 AM CDT Office Visit Department of Oncology in [place], [place] [address] [place] [phone] Kerrie Vela M.B., B.Ch., M.D. [address] [place] [phone] 09/24/2024 10:20 AM CDT Education Department of Oncology in [place], [place] [address] [place] [phone] Kerrie Vela M.B., B.Ch., M.D. [address] [place] [phone] 09/24/2024 11:30 AM CDT Appointment [facility], [facility], [facility] [address] [place] [phone] Kerrie Vela M.B., B.ChForeign, M.DForeign [address] [place] [phone] 09/25/2024 8:30 AM CDT Appointment [facility], [facility], [facility] [address] [place] [phone] Kerrie Vela M.B., B.ChForeign, M.DForeign [address] [place] [phone] 09/26/2024 8:30 AM CDT Appointment [facility], [facility], [facility] [address] [place] [phone] Kerrie Vela M.B., B.ChForeign, M.DForeign [address] [place] [phone] 09/28/2024 11:45 AM CDT Lab Department of Oncology in [place], [place] [address] [place] [phone] Kerrie Vela M.B., B.ChForeign, M.DForeign [address] [place] [phone] 09/28/2024 1:40 PM CDT Office Visit Department of Oncology in [place], [place] [address] [place] [phone] Dawood Ruiz P.A.-C. [address] [place] [phone] 10/01/2024 8:00 AM CDT Appointment [facility], [facility], [facility] [address] [place] [phone] Kerrie Vela M.B., B.ChForeign, M.DForeign [address] [place] [phone] 10/02/2024 8:00 AM CDT Appointment [facility], [facility], [facility] [address] [place] [phone] Kerrie Vela M.B., B.ChForeign, M.D. [address] [place] [phone] 10/03/2024 8:00 AM CDT Appointment [facility], [facility], [facility] [address] [place] [phone] Kerrie Vela M.B., B.Ch., M.D. [address] [place] [phone] 10/10/2024 6:30 AM CDT Lab Department of Oncology in [place], [place] [address] [place] [phone] Kerrie Vela M.B., B.Ch., M.D. [address] [place] [phone] 10/10/2024 8:20 AM CDT Office Visit Department of Oncology in [place], [place] [address] [place] [phone] Brittney Stuart M.D. [address] [place] [phone] 10/10/2024 12:30 PM CDT Infusion Department of Oncology in [place], [place] [address] [place] [phone] Kerrie Vela M.B., BDuran, M.D. [address] [place] [phone] 10/12/2024 11:20 AM CDT Office Visit Department of Oncology in [place], [place] [address] [place] [phone] Kerrie Vela M.B., BDuran, M.DForeign [address] [place] [phone] 10/17/2024 1:00 PM CDT Office Visit Department of Ophthalmology in [place], [place] [address] [place] [phone] Tomás Mcbride M.D. [address] [place] [phone] 10/23/2024 8:45 AM CDT Lab Department of Oncology in [address] [phone] Kerrie Vela M.B., B.ChForeign, M.DForeign [address] [place] [phone] 10/23/2024 11:00 AM CDT Office Visit Department of Oncology in [address] [phone] Kerrie Vela M.B., B., M.D. [address] [place] [phone] 10/23/2024 11:30 AM CDT Appointment Department of Radiology in [place], [place] [address] [place] [address] Franny Dutta M.D. [address] [place] [phone] 10/24/2024 7:30 AM CDT Infusion Department of Oncology in [place], [place] [address] [place] [phone] Kerrie Vela M.B., BDuran, M.DForeign [address] [place] [phone] 10/24/2024 11:00 AM CDT Appointment Department of Radiation Oncology in [place], [place] [address] [place] [phone] Franny Dutta M.D. [address] [place] [phone] 10/25/2024 11:00 AM CDT Office Visit Department of Oncology in [place], [place] [address] [place] [phone] Kerrie Vela M.B., B.ChForeign, M.D. [address] [place] [phone] 11/06/2024 7:00 AM CDT Lab Department of Oncology in [place], [place] [address] [place] [phone] Kerrie Vela M.B., B.ChForeign, M.D. [address] [place] [phone] 11/06/2024 9:00 AM CDT Office Visit Department of Oncology in [address] [phone] Dawood Ruiz P.A.-C. [address] [place] [phone] 11/06/2024 10:00 AM CDT Infusion Department of Oncology in [place], [place] [address] [place] [phone] Kerrie Vela M.B., B.Ch., M.DForeign [address] [place] [phone] 11/20/2024 6:30 AM CDT Lab Department of Laboratory Medicine and Pathology, [facility] in [place], [place] [address] [place] [phone] Kerrie Vela M.B., B.ChForeign, M.DForeign [address] [place] [phone] 11/20/2024 8:20 AM CDT Office Visit Department of Oncology in [place], [place] [address] [place] [phone] Dawood Ruiz P.A.-C. [address] [place] [phone] 11/20/2024 9:00 AM CDT Infusion Department of Oncology in [place], [place] [address] [place] [phone] Kerrie Vela M.B., B.Ch., M.D. [address] [place] [phone] 12/04/2024 8:30 AM CDT Lab Department of Laboratory Medicine and Pathology, [facility] in [place], [place] [address] [place] [phone] Kerrie Vela M.B., B.Ch., M.DForeign [address] [place] [phone] 12/04/2024 10:20 AM CDT Office Visit Department of Oncology in [place], [place] [address] [place] [phone] Kerrie eVla M.B., BDuran, M.D. [address] [place] [phone] 12/04/2024 11:00 AM CDT Infusion Department of Oncology in [place], [place] [address] [place] [address] Kerrie Vela M.B., B., M.Cecelia [address] [place] [phone] documented as of this encounter Visit Diagnoses Not on filedocumented in this encounter Additional Health Concerns Infection Onset Date Last Indicated Resolved Time Protective Environment 07/05/2024 07/05/202409/02 6:26 AM CDT Assessment Noted Time PHQ-9 Depression Total Score: 0 07/04/19 24 9:20 AM SURVEILLANCE TECHNICIAN documented as of this encounter Care Teams Relief Worker Relationship Specialty Start Date End Date Jenny Vaca M.D. [address] [phone] PCP - General 11/11/16 documented as of this encounter
--- OUTSIDE RECORDS SUMMARY | 2024-09-13 12:41 | XMS_ITS | Encounter Summary ---
Author Organization [facility] Address [address] [place] [address] Care Team Providers Care Valve Setter Name Role Phone Jenny Vaca M.D. 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 [address] [place] [address] Phone: tel: fax: Department of Oncology in [place], [place] [address] [place] [address] Phone: tel: fax: Referral ID Status Reason Start Date Expiration Date Visits Re quested Visits Authorized [id number] Closed 12/20/2023 12/19/2025 99 99 Encounter Details Date Type Department Care Team (Latest Contact Info) Description 07/31/2024 4:35 PM PHOTOENGRAVING PRINTER - 07/31/2024 11:59 PM PHOTOENGRAVING PRINTER Hospital Encounter Department of Laboratory Medicine in [place], [place] [address] [address] Marlo Diallo M.D. 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 More than 4 times per year 09/27/2022 Do you belong to any clubs o r organizations such as jainism groups, unions, fraternal or athletic groups, or [...] Score 0 06/18/2024 [facility] - Occupational [...] your living situation today? I have a [facility] place to live 07/08/2023 Comments No Sex and Gender Information Value Date Recorded Sex Assigned at Not on file Legal Sex Female 8:27 AM PHOTOENGRAVING PRINTER Gender Identity Female 04/06/2017 8:58 AM PHOTOENGRAVING PRINTER Sexual Orientation Straight 04/06/2017 8: 58 AM PHOTOENGRAVING PRINTER documented as of this encounter Medications at [...] 3 1 blood-glucose meter,continuous (FreeStyle [place] 3 [place]) 1 each (1 Device total) as directed. [...] needed (fluid retention). 90 tablet 3 4 HYDROcodone-aceta minophen ([place]) 5-325 mg per tabletIndications :Chronic Pain/Nonacute Pain Take 1 tablet by mouth every 6 (six) hours as needed for severe pain or score 7-10 of 10 Indication: Chronic Pain/Nonacute Pain. 30 tablet 5 insulin lispro (HumaLOG U-100 Insulin) 100 unit/mL [...] E11.40 Lifetime need 400 each 3 8 loperamide (IMODIUM A-D) 2 mg tablet Take 2 mg by mouth 4 (four) times a day as needed for diarrhea. 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 30 tablet 3 4 09/13/19 25 documented as of this encounter Plan of Treatment Upcoming Encounters Date Type Department Care Team (Late st Contact Info) Description 09/14/2024 11:00 AM CDT Admin Visit Department of Oncology in [place], [place] [address] [place] [address] 09/17/2024 8:00 AM CDT Lab Department of Infusion Therapy in [place], [place] [address] [phone] Jenny Vaca M.D. [address] [phone] 09/17/2024 1:30 PM CDT Office Visit Department of Internal Medicine in [place], [place] [address] [phone] Elissa Luo P.A.-Hesham., M.S. [address] [address] 09/18/2024 8:00 AM CDT Clinical Support Department of Oncology in [place], [place] [address] [place] [phone] Blossom Hernandez M.S.[place]., L.I.C.S.W. [address] [place] [phone] 09/20/2024 10:00 AM CDT Telemedicine Department of Oncology in [place], [place] [address] [place] [phone] Kerrie Vela M.B., B.ChForeign, M.D. [address] [place] [phone] 09/24/2024 8:30 AM CDT Lab Department of Oncology in [place], [place] [address] [place] [phone] Kerrie Vela M.B., B.Ch., M.D. [address] [place] [phone] 09/24/2024 9:40 AM CDT Office Visit Department of Oncology in [address] [phone] Kerrie Vela M.B., B.Ch., M.D. [address] [place] [phone] 09/24/2024 10:20 AM CDT Education Department of Oncology in [address] [phone] Kerrie Vela M.B., B.Ch., M.D. [address] [place] [phone] 09/24/2024 11:30 AM CDT Appointment [facility], [facility], [address] [phone] Kerrie Vela M.B., BDuran, M.DForeign [address] [place] [phone] 09/25/2024 8:30 AM CDT Appointment [facility], [facility], [facility] [address] [place] [phone] Kerrie Vela M.B., BDuran, M.DForeign [address] [place] [phone] 09/26/2024 8:30 AM CDT Appointment [facility], [facility], [address] [phone] Kerrie Vela M.B., Trevor, M.DForeign [address] [place] [phone] 09/28/2024 11:45 AM CDT Lab Department of Oncology in [address] [phone] Kerrie Vela M.B., B.ChForeign, M.DForeign [address] [place] [phone] 09/28/2024 1:40 PM CDT Office Visit Department of Oncology in [place], [place] [address] [place] [phone] Dawood Ruiz P.A.-C. [address] [place] [phone] 10/01/2024 8:00 AM CDT Appointment [facility], [facility] [address] [place] [address] Kerrie Vela M.B., BDuran, M.Cecelia [address] [place] [phone] 10/02/2024 8:00 AM CDT Appointment [facility], [facility], [facility] [address] [place] [address] Kerrie Vela M.B., BDuran, M.DForeign [address] [place] [phone] 10/03/2024 8:00 AM CDT Appointment [facility], [facility], [facility] [address] [place] [address] Kerrie Vela M.B., Trevor, MForeignDForeign [address] [place] [phone] 10/10/2024 6:30 AM CDT Lab Department of Oncology in [place], [place] [address] [place] [phone] Kerrie Vela M.B., B.ChForeign, M.DForeign [address] [place] [phone] 10/10/2024 8:20 AM CDT Office Visit Department of Oncology in [place], [place] [address] [place] [phone] Brittney Stuart M.D. [address] [place] [phone] 10/10/2024 12:30 PM CDT Infusion Department of Oncology in [place], [place] [address] [place] [phone] Kerrie Vela M.B., BDuran, M.DForeign [address] [place] [phone] 10/12/2024 11:20 AM CDT Office Visit Department of Oncology in [place], [place] [address] [place] [phone] Kerrie Vela M.B., BDuran, M.DForeign [address] [place] [phone] 10/17/2024 1:00 PM CDT Office Visit Department of Ophthalmology in [place], [place] [address] [place] [phone] Tomsá Mcbride M.D. [address] [place] [address] 10/23/2024 8:45 AM CDT Lab Department of Oncology in [place], [place] [address] [place] [phone] Kerrie Vela M.B., B., M.DForeign [address] [place] [phone] 10/23/2024 11:00 AM CDT Office Visit Department of Oncology in [place], [place] [address] [place] [phone] Kerrie Vela M.B., B., M.D. [address] [place] [phone] 10/23/2024 11:30 AM CDT Appointment Department of Radiology in [place], [place] [address] [place] [phone] Franny Dutta M.D. [address] [place] [phone] 10/24/2024 7:30 AM CDT Infusion Department of Oncology in [place], [place] [address] [place] [phone] Kerrie Vela M.B., BDuran, M.DForeign [address] [place] [phone] 10/24/2024 11:00 AM CDT Appointment Department of Radiation Oncology in [place], [place] [address] [place] [address] Franny Dutta M.D. [address] [place] [phone] 10/25/2024 11:00 AM CDT Office Visit Department of Oncology in [place], [place] [address] [place] [phone] Kerrie Vela M.B., B., M.DForeign [address] [place] [phone] 11/06/2024 7:00 AM CDT Lab Department of Oncology in [place], [place] [address] [place] [phone] Kerrie Vela M.B., B., M.DForeign [address] [place] [phone] 11/06/2024 9:00 AM CDT Office Visit Department of Oncology in [address] [phone] Dawood Ruiz P.A.-C. [address] [place] [phone] 11/06/2024 10:00 AM CDT Infusion Department of Oncology in [place], [place] [address] [place] [phone] Kerrie Vela M.B., BDuran, M.DForeign [address] [place] [phone] 11/20/2024 6:30 AM CDT Lab Department of Laboratory Medicine and Pathology, [facility] in [place], [place] [address] [place] [phone] Kerrie Vela M.B., B.ChForeign, M.DForeign [address] [place] [phone] 11/20/2024 8:20 AM CDT Office Visit Department of Oncology in [place], [place] [address] [place] [phone] Dawood Ruiz P.A.-C. [address] [place] [phone] 11/20/2024 9:00 AM CDT Infusion Department of Oncology in [place], [place] [address] [place] [phone] Kerrie Vela M.B., B.ChForeign, M.DForeign [address] [place] [phone] 12/04/2024 8:30 AM CDT Lab Department of Laboratory Medicine and Pathology, [facility] in [place], [place] [address] [place] [phone] Kerrie Vela M.B., B., M.D. [address] [place] [phone] 12/04/2024 10:20 AM CDT Office Visit Department of Oncology in [place], [place] [address] [place] [address] [place] [phone] Kerrie Vela M.B., Trevor, MPhuc [address] [place] [address] 12/04/2024 11:00 AM CDT Infusion Department of Oncology in [place], [place] [address] [place] [address] Kerrie Vela M.B., Trevor, Alin [address] [place] [address] documented as of this encounter Procedures Procedure Name Priority Date/Time Associated Diagnosis Comments CBC WITH DIFFERENTIAL, B Routine 07/31/2024 4:46 PM PHOTOENGRAVING PRINTER Cancer Lung Small Cell Personal History [facility] Current Drug Therapy, 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) MAGNESIUM, S Routine 07/31/2024 4:46 PM PHOTOENGRAVING PRINTER Cancer Lung Small Cell Personal History Project Coordinator Current Drug Therapy, 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 LAB BLOOD ADD-ON Final Result [facility] [address] [place] [address], [facility] OWAT [facility] in [place] [address] [place] [address] * (ABNORMAL) Comprehensive Metabolic Panel (07/31/2024 4:46 PM PHOTOENGRAVING PRINTER) Potassium, P 4.5 3.6 - 5.2 mmol/L 07/31/2024 6:50 PM PHOTOENGRAVING PRINTER OWAT Sodium, P 140 135 - 145 mmol/L 07/31/2024 6:50 PM PHOTOENGRAVING PRINTER OWAT Chloride, P 108(H) 98 - 107 mmol/L 07/31/2024 6:50 PM PHOTOENGRAVING PRINTER OWAT Bicarbonate, P 18(L) 22 - 29 mmol/L 07/31/2024 6:50 PM PHOTOENGRAVING PRINTER OWAT Anion Gap, P 14 7 - 15 07/31/2024 6:50 PM PHOTOENGRAVING PRINTER OWAT BUN (Blood Urea Nitrogen), P 27(H) 6 - 21 mg/dL 07/31/2024 6:50 PM PHOTOENGRAVING PRINTER OWAT Creatinine 1.50(H) 0.59 - 1.04 mg/dL 07/31/2024 6:50 PM PHOTOENGRAVING PRINTER OWAT Estimated GFR (eGFR) 35(L) >=60 mL/min/BS A 07/31/2024 6:50 PM PHOTOENGRAVING PRINTER OWAT Comment: Estimated GFR calculated using the 2020 CKD_EPI creatinine equation. Calcium, Total, P 8.9 8.8 - 10.2 mg/dL 07/31/2024 6:50 PM PHOTOENGRAVING PRINTER OWAT Glucose, P 177(H) 70 - 140 mg/dL 07/31/2024 6:50 PM PHOTOENGRAVING PRINTER OWAT Protein, Total, P 6.7 6.3 - 7.9 g/dL 07/31/2024 6:50 PM PHOTOENGRAVING PRINTER OWAT Albumin, P 3.8 3.5 - 5.0 g/dL 07/31/2024 6:50 PM PHOTOENGRAVING PRINTER OWAT Aspartate Aminotransferase (AST), P 22 8 - 43 U/L 07/31/2024 6:50 PM PHOTOENGRAVING PRINTER OWAT Alkaline Phosphatase, P 133(H) 35 - 104 U/L 07/31/2024 6:50 PM PHOTOENGRAVING PRINTER OWAT Alanine Aminotransferase (ALT), P 10 7 - 45 U/L 07/31/2024 6:50 PM PHOTOENGRAVING PRINTER OWAT Bilirubin, Total, P 0.2 0.0 - 1.2 mg/dL 07/31/2024 6:50 PM PHOTOENGRAVING PRINTER OWAT Blood (Blood, Venous) 07/31/2024 4:46 PM PHOTOENGRAVING PRINTER 07/31/2024 5:50 PM PHOTOENGRAVING PRINTER us Marlo Diallo M.D. LAB BLOOD ADD-ON Final Result [facility] [address] [place] [address], [facility] OWAT [facility] [place] [address] [place] [address] * (ABNORMAL) CBC with Differential, Blood (07/31/2024 4:46 PM PHOTOENGRAVING PRINTER) Hemoglobin 10.0(L) 11.6 - 15.0 g/dL 07/31/2024 4:53 PM PHOTOENGRAVING PRINTER FB60 Hematocrit 31.6(L) 35.5 - 44.9 % 07/31/2024 4:53 PM PHOTOENGRAVING PRINTER FB60 Erythrocytes 3.28(L) 3.92 - 5.13 x10(12)/L 07/31/2024 4:53 PM PHOTOENGRAVING PRINTER FB60 MCV 96.3 78.2 - 97.9 fL 07/31/2024 4:53 PM PHOTOENGRAVING PRINTER FB60 RBC Distrib Width 15.4 12.2 - 16.1 % 07/31/2024 4:53 PM PHOTOENGRAVING PRINTER FB60 Platelet Count 249 157 - 371 x10(9)/L 07/31/2024 4:53 PM PHOTOENGRAVING PRINTER FB60 Leukocytes 8.5 3.4 - 9.6 x10(9)/L 07/31/2024 4:53 PM PHOTOENGRAVING PRINTER FB60 Neutrophils 5.47 1.56 - 6.45 x10(9)/L 07/31/2024 4:53 PM PHOTOENGRAVING PRINTER FB60 Lymphocytes 1.82 0.95 - 3.07 x10(9)/L 07/31/2024 4:53 PM PHOTOENGRAVING PRINTER FB60 Monocytes 1.08(H) 0.26 - 0.81 x10(9)/L 07/31/2024 4:53 PM PHOTOENGRAVING PRINTER FB60 Eosinophils 0.09 0.03 - 0.48 x10(9)/L 07/31/2024 4:53 PM PHOTOENGRAVING PRINTER FB60 Basophils <0.04 0.01 - 0.08 x10(9)/L 07/31/2024 4:53 PM PHOTOENGRAVING PRINTER FB60 Blood (Blood, Venous) 07/31/2024 4:46 PM PHOTOENGRAVING PRINTER 07/31/2024 4:47 PM PHOTOENGRAVING PRINTER Marlo Diallo M.D. LAB BLOOD ADD-ON Final Result 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 [address] [place] [phone] PCP - General 11/11/16 documented as of this encounter
--- OUTSIDE RECORDS SUMMARY | 2024-09-13 12:41 | XMS_ITS | Encounter Summary ---
Author Organization [facility] Address [address] [place] [address] Care Team Providers Care Escrow Assistant Name Role Phone Jenny Vaca M.D. 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 [address] [place] [address] Phone: tel: fax: Department of Oncology in [place], [place] [address] [address] Phone: tel: fax: Referral ID Status Reason Start Date Expiration Date Visits Re quested Visits Authorized [id number] Closed 12/20/2023 12/19/2025 99 99 Encounter Details Date Type Department Care Team (Late st Contact Info) Description 08/17/2024 10:00 AM CDT Office Visit Department of Oncology in [place], [place] [address] [address] Marlo Diallo M.D. [address] [facility] [place] [address] Amina Jones R.N. 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) (Primary Dx); Cancer Lung Small Cell Personal History; Nursing Home Current Drug Therapy, 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 Social History Tobacco Use Types Packs/Day Years Used Date Smoking Tobacco: Every Day Cigarettes 0.5 60 Passive Smoke Exposure: Current Smokeless Tobacco: Never Alcohol Use Standard Drinks/Week Comments Yes 1 (1 standard drink = 0.6 oz pur e alcohol) 1 beer per night [facility] [employer] Answer Date Recorded In the past 12 months has [employer], gas, oil, or water [employer] threatened to shut off services in your [...] do you attend [facility] or am[facility] services? More than 4 times per year [...] Answer Date Recorded PHQ-2 Score 0 06/18/2024 [facility] - Occupational Stress Questionnaire Answer Date Recorded [...] your living situation today? I [facility] 07/08/2023 Comments No Sex and Gender Information Value Date Recorded Sex Assigned at Not on file Legal Sex Female 8:27 AM HR OPERATIONS ADVISOR Gender Identity Female 04/06/2017 8:58 AM HR OPERATIONS ADVISOR Sexual Orientation Straight 04/06/2017 8: 58 AM HR OPERATIONS ADVISOR documented as of this encounter Last Filed Vital Signs Vital Sign Reading Time Taken Comments Blood Pressure 106/63 08/17/2024 9:45 AM CDT Pulse 71 08/17/2024 9:45 AM CDT Temperature 36.4 C (97.6 F) 08/17/2024 9:45 AM CDT Respiratory Rate - - Oxygen Saturation - - Inhaled Oxygen Concentration - - Weight 59.2 kg (130 lb 8.2 oz) 08/17/2024 9:45 A M CDT Height - - Body Mass Index 21.74 06/22/2024 10:59 AM HR OPERATIONS ADVISOR documented in this encounter Progress Notes * Amina Jones R.N. - 08/17/2024 10:00 AM CDT Nurse Only Visit Collaborating Provider Dr. Marion Ordoñez Reason for Visit Ms. Goyal is here in preparation for day 1 cycle 11 Systems Review The patient is seen today, 08/17/2024, and reports the following: Iva complains of lower back/pelvic pain, dysuria, urgency and increase in frequency. She reports low grade fevers earlier in the week. Also notes not eating and drinking as much, some dizziness upon standing/position changes. UA/UC completed. Reviewed assessment with Dr. Ordoñez. Plan 1 L IV fluids today Start 7 day course of Cipro Resume treatment once antibiotics are completed and symptom free The following recommendations were discussed with the patient: Instructed to monitor temperature and call the care team or the on-call provider if temperature greater than 100.4 degrees Fahrenheit., Encouraged hydration with caffeine-free clear liquids., and Encouraged activity as tolerated and rest when needed. She was encouraged to contact our team at any time with questions or concerns. Ms. Goyal expressed understanding and agrees with the plan. They have no further questions or concerns at this time. documented in this encounter Plan of Treatment Upcoming Encounters Date Type Department Care Team (Late st Contact Info) Description 09/14/2024 11:00 AM CDT Admin Visit Department of Oncology in [place], [place] [address] [place] [phone] 09/17/2024 8:00 AM CDT Lab Department of Infusion Therapy in [place], [place] [address] [phone] Jenny Vaca M.D. [address] [address] 09/17/2024 1:30 PM CDT Office Visit Department of Internal Medicine in [place], [place] [address] [phone] Elissa Luo P.A.-C., M.S. [address] [address] 09/18/2024 8:00 AM CDT Clinical Support Department of Oncology in [place], [place] [address] [place] [phone] Blossom Hernandez M.S.W., L.I.C.S.W. [address] [place] [phone] 09/20/2024 10:00 AM CDT Telemedicine Department of Oncology in [place], [place] [address] [place] [phone] Kerrie Vela M.B., BDuran, M.DForeign [address] [place] [phone] 09/24/2024 8:30 AM CDT Lab Department of Oncology in [place], [place] [address] [place] [address] Kerrie Vela M.B., BDuran, M.DForeign [address] [place] [phone] 09/24/2024 9:40 AM CDT Office Visit Department of Oncology in [place], [place] [address] [place] [phone] Kerrie Vela M.B., BDuran, M.DForeign [address] [place] [phone] 09/24/2024 10:20 AM CDT Education Department of Oncology in [place], [place] [address] [place] [address] Kerrie Vela M.B., BDuran, M.DForeign [address] [place] [phone] 09/24/2024 11:30 AM CDT Appointment [facility], [facility], [facility] [address] [place] [phone] Kerrie Vela M.B., B.ChForeign, M.D. [address] [place] [phone] 09/25/2024 8:30 AM CDT Appointment [facility], [facility], [facility] Level [address] [place] [phone] Kerrie Vela M.B., Trevor, MPhuc [address] [place] [phone] 09/26/2024 8:30 AM CDT Appointment [facility], [facility], [facility] [address] [place] [phone] Kerrie eVla M.B., Trevor, MPhcu [address] [place] [phone] 09/28/2024 11:45 AM CDT Lab Department of Oncology in [place], [place] [address] [place] [phone] Kerrie Vela M.B., Trevor, MPhuc [address] [place] [phone] 09/28/2024 1:40 PM CDT Office Visit Department of Oncology in [place], [place] [address] [place] [phone] Dawood Ruiz P.A.-C. [address] [place] [phone] 10/01/2024 8:00 AM CDT Appointment [facility], [facility], [facility] [address] [place] [phone] Kerrie Vela M.B., BDuran, MPhuc [address] [place] [phone] 10/02/2024 8:00 AM CDT Appointment [facility], [facility], [facility] [address] [place] [phone] Kerrie Vela M.B., Trevor, MPhuc [address] [place] [phone] 10/03/2024 8:00 AM CDT Appointment [facility], [facility], [facility], [facility] [address] [place] [address] Kerrie Vela M.B., B., M.Cecelia [address] [place] [phone] 10/10/2024 6:30 AM CDT Lab Department of Oncology in [place], [place] [address] [place] [phone] Kerrie Vela M.B., B., M.DForeign [address] [place] [phone] 10/10/2024 8:20 AM CDT Office Visit Department of Oncology in [place], [place] [address] [place] [phone] Brittney Stuart M.D. [address] [place] [phone] 10/10/2024 12:30 PM CDT Infusion Department of Oncology in [place], [place] [address] [place] [phone] Kerrie Vela M.B., B.ChForeign, M.DForeign [address] [place] [phone] 10/12/2024 11:20 AM CDT Office Visit Department of Oncology in [place], [place] [address] [place] [phone] Kerrie Vela M.B., B.ChForeign, M.DForeign [address] [place] [phone] 10/17/2024 1:00 PM CDT Office Visit Department of Ophthalmology in [place], [place] [address] [place] [address] Tomás Mcbride M.D. [address] [place] [phone] 10/23/2024 8:45 AM CDT Lab Department of Oncology in [place], [place] [address] [place] [phone] Kerrie Vela M.B., B.ChForeign, M.D. [address] [place] [phone] 10/23/2024 11:00 AM CDT Office Visit Department of Oncology in [place], [place] [address] [place] [phone] Kerrie Vela M.B., B.Ch., M.D. [address] [place] [phone] 10/23/2024 11:30 AM CDT Appointment Department of Radiology in [place], [place] [address] [place] [phone] Franny Dutta M.D. [address] [place] [phone] 10/24/2024 7:30 AM CDT Infusion Department of Oncology in [place], [place] [address] [place] [phone] Kerrie Vela M.B., B.Ch., M.D. [address] [place] [phone] 10/24/2024 11:00 AM CDT Appointment Department of Radiation Oncology in [place], [place] [address] [place] [phone] Franny Dutta M.D. [address] [place] [phone] 10/25/2024 11:00 AM CDT Office Visit Department of Oncology in [place], [place] [address] [place] [phone] Kerrie Vela M.B., B.ChForeign, M.D. [address] [place] [phone] 11/06/2024 7:00 AM CDT Lab Department of Oncology in [address] [phone] Kerrie Veal M.B., B.Ch., M.D. [address] [place] [phone] 11/06/2024 9:00 AM CDT Office Visit Department of Oncology in [place], [place] [address] [place] [phone] Dawood Ruiz P.A.-C. [address] [place] [phone] 11/06/2024 10:00 AM CDT Infusion Department of Oncology in [place], [place] [address] [place] [phone] Kerrie Vela M.B., B.Ch., M.D. [address] [place] [phone] 11/20/2024 6:30 AM CDT Lab Department of Laboratory Medicine and Pathology, [facility], in [place], [place] [address] [place] [phone] Kerrie Vela M.B., BForeignChForeign, M.DForeign [address] [place] [phone] 11/20/2024 8:20 AM CDT Office Visit Department of Oncology in [place], [place] [address] [place] [address] Dawood Ruiz P.A.-C. [address] [place] [phone] 11/20/2024 9:00 AM CDT Infusion Department of Oncology in [place], [place] [address] [place] [phone] Kerrie Vela M.B., B.ChForeign, M.DForeign [address] [place] [phone] 12/04/2024 8:30 AM CDT Lab Department of Laboratory Medicine and Pathology, [facility] in [place], [place] [address] [place] [phone] Kerrie Vela M.B., B.ChForeign, M.DForeign [address] [place] [phone] 12/04/2024 10:20 AM CDT Office Visit Department of Oncology in [place], [place] [address] [place] [phone] Kerrie Vela M.B., B.ChForeign, M.D. [address] [place] [phone] 12/04/2024 11:00 AM CDT Infusion Department of Oncology in [place], [place] [address] [place] [phone] Kerrie Vela M.B., B.ChForeign, M.DForeign [address] [place] [phone] documented as of this encounter Results * Magnesium (08/23/2024 8:51 AM CDT) Magnesium, P 1.7 1.7 - 2.3 mg/dL 08/23/2024 9:22 AM CDT OWAT Blood (Blood, Venous) 08/23/2024 8:51 AM CDT 08/23/2024 8:56 AM CDT us Marlo Diallo M.D. LAB BLOOD ADD-ON Final Result [facility] [address] [place] [address], [facility] [place] [address] [place] [address] * (ABNORMAL) Comprehensive Metabolic Panel (08/23/2024 8:51 [...] Diallo M.D. LAB BLOOD ADD-ON Final Result [facility] [address] [place] [address], [facility] [place] [address], [place] [address] * (ABNORMAL) CBC with Differential, Blood (08/23/2024 [...] Diallo M.D. 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 [address] [place] [phone] PCP - General 11/11/16 documented as of this encounter
--- OUTSIDE RECORDS SUMMARY | 2024-09-13 12:41 | XMS_ITS | Encounter Summary ---
Author Organization [facility] Address [address] [place] [address] Care Team Providers Care Garnetter Name Role Phone Jenny Vaca M.D. Primary Care Provider [phone] Encounter Details Date Type Department Care Team (Late st Contact Info) Description 07/25/2024 Clinical Communication Department of Oncology in [place], [place] [address] [place] [phone] Marlo Diallo M.D. [address] [place] [phone] Social History Tobacco Use Types Packs/Day Years Used Date Smoking Tobacco: Every Day Cigarettes 0.5 60 Passive Smoke Exposure: Current Smokeless Tobacco: Never Alcohol Use Standard Drinks/Week Comments Yes 1 (1 standard drink = 0.6 oz pur e alcohol) 1 beer per night [facility] Utilities Answer Date Recorded In the past 12 months has e [employer], gas, oil, or water [employer] threatened to shut off services in your [...] any clubs o r organizations such as voodoo groups, unions, fraternal or athletic groups, or [...] your living situation today? I have a [facility] place to live 07/08/2023 Comments No Sex and Gender Information Value Date Recorded Sex Assigned at Not on file Legal Sex Female 8:27 AM WEB WORKER Gender Identity Female 04/06/2017 8:58 AM WEB WORKER Sexual Orientation Straight 04/06/2017 8: 58 AM WEB WORKER documented as of this encounter Miscellaneous Notes * Telephone Encounter - Radha Mckeon - 07/25/2024 4:14 PM CST ----- Message from Nurse Huynh sent at 07/25/2024 3:39 PM WEB WORKER ----- Patient's treatment plan has been deferred for this week. Please update appointments accordingly. Appointment tomorrow will be kept for hydration. IVT- FYI WORKER documented in this encounter Plan of Treatment Upcoming Encounters Date Type Department Care Team (Late st Contact Info) Description 09/14/2024 11:00 AM CDT Admin Visit Department of Oncology in [place], [place] [address] [place] [phone] 09/17/2024 8:00 AM CDT Lab Department of Infusion Therapy in [place], [place] [address] [phone] Jenny Vaca M.D. [address] [phone] 09/17/2024 1:30 PM CDT Office Visit Department of Internal Medicine in [place], [place] [address] [phone] Elissa Luo, Jen., M.S. [address] [phone] 09/18/2024 8:00 AM CDT Clinical Support Department of Oncology in [place], [place] [address] [place] [phone] Blossom Hernandez, M.S.W., L.I.C.S.W. [address] [place] [phone] 09/20/2024 10:00 AM CDT Telemedicine Department of Oncology in [place], [place] [address] [place] [phone] Kerrie Vela M.B., B.Ch., M.D. [address] [place] [phone] 09/24/2024 8:30 AM CDT Lab Department of Oncology in [place], [place] [address] [place] [phone] Kerrie Vela M.B., Trevor, MPhuc [address] [place] [phone] 09/24/2024 9:40 AM CDT Office Visit Department of Oncology in [place], [place] [address] [place] [phone] Kerrie Vela M.B., Trevor, M.DForeign [address] [place] [phone] 09/24/2024 10:20 AM CDT Education Department of Oncology in [place], [place] [address] [place] [address] Kerrie Vela M.B., BDuran, M.DForeign [address] [place] [phone] 09/24/2024 11:30 AM CDT [place]ment [facility] [address] [place] [address] Kerrie Vela M.B., BDuran, M.DForeign [address] [place] [phone] 09/25/2024 8:30 AM CDT Appointment [facility] [address] [place] [address] Kerrie Vela M.B., Trevor, M.DForeign [address] [place] [phone] 09/26/2024 8:30 AM CDT Appointment [facility] [place] [address] [place] [phone] Kerrie Vela M.B., BDuran, M.DForeign [address] [place] [phone] 09/28/2024 11:45 AM CDT Lab Department of Oncology in [place], [place] [address] [place] [phone] Kerrie Vela M.B., Trevor, M.DForeign [address] [place] [phone] 09/28/2024 1:40 PM CDT Office Visit Department of Oncology in [place], [place] [address] [place] [phone] Dawood Ruiz P.A.-C. [address] [place] [phone] 10/01/2024 8:00 AM CDT Appointment [facility], [address] [phone] Kerrie Vela M.B., BDuran, M.DForeign [address] [place] [phone] 10/02/2024 8:00 AM CDT Appointment [facility], [address] [phone] Kerrie Vela M.B., BDuran, M.DForeign [address] [place] [phone] 10/03/2024 8:00 AM CDT Appointment [facility], [address] [place] [address] Kerrie Vela M.B., BDuran, MPhuc [address] [place] [phone] 10/10/2024 6:30 AM CDT Lab Department of Oncology in [place], [place] [address] [place] [phone] Kerrie Vela M.B., B., M.Cecelia [address] [place] [phone] 10/10/2024 8:20 AM CDT Office Visit Department of Oncology in [address] [phone] Brittney Stuart M.D. [address] [place] [phone] 10/10/2024 12:30 PM CDT Infusion Department of Oncology in [place], [place] [address] [place] [phone] Kerrie Vela M.B., B.ChForeign, M.D. [address] [place] [phone] 10/12/2024 11:20 AM CDT Office Visit Department of Oncology in [address] [phone] Kerrie Vela M.B., B., M.DForeign [address] [place] [phone] 10/17/2024 1:00 PM CDT Office Visit Department of Ophthalmology in [place], [place] [address] [place] [phone] Tomás Mcbride M.D. [address] [place] [address] 10/23/2024 8:45 AM CDT Lab Department of Oncology in [place], [place] [address] [place] [address] Kerrie Vela M.B., B.ChForeign, M.DForeign [address] [place] [phone] 10/23/2024 11:00 AM CDT Office Visit Department of Oncology in [place], [place] [address] [place] [address] Kerrie Vela M.B., B.ChForeign, M.D. [address] [place] [phone] 10/23/2024 11:30 AM CDT Appointment Department of Radiology in [place], [place] [address] [place] [phone] Franny Dutta M.D. [address] [place] [phone] 10/24/2024 7:30 AM CDT Infusion Department of Oncology in [place], [place] [address] [place] [address] Kerrie Vela M.B., B.ChForeign, M.DForeign [address] [place] [phone] 10/24/2024 11:00 AM CDT Appointment Department of Radiation Oncology in [place], [place] [address] [place] [phone] Franny Dutta M.D. [address] [place] [phone] 10/25/2024 11:00 AM CDT Office Visit Department of Oncology in [place], [place] [address] [place] [phone] Kerrie Vela M.B., Trevor, MPhuc [address] [place] [phone] 11/06/2024 7:00 AM CDT Lab Department of Oncology in [place], [place] [address] [place] [phone] Kerrie Vela M.B., BDuran, M.DForeign [address] [place] [phone] 11/06/2024 9:00 AM CDT Office Visit Department of Oncology in [place], [place] [address] [place] [phone] Dawood Ruiz P.A.-C. [address] [place] [phone] 11/06/2024 10:00 AM CDT Infusion Department of Oncology in [address] [phone] Kerrie Vela M.B., B., M.D. [address] [place] [phone] 11/20/2024 6:30 AM CDT Lab Department of Laboratory Medicine and Pathology, [facility], in [place], [place] [address] [place] [phone] Kerrie Vela M.B., BDuran, M.D. [address] [place] [phone] 11/20/2024 8:20 AM CDT Office Visit Department of Oncology in [place], [place] [address] [place] [phone] Dawood Ruiz P.A.-C. [address] [place] [phone] 11/20/2024 9:00 AM CDT Infusion Department of Oncology in [place], [place] [address] [place] [phone] Kerrie Vela M.B., B.ChForeign, M.DForeign [address] [place] [phone] 12/04/2024 8:30 AM CDT Lab Department of Laboratory Medicine and Pathology, [facility] in [address] [phone] Kerrie Vela M.B., B.ChForeign, M.DForeign [address] [place] [phone] 12/04/2024 10:20 AM CDT Office Visit Department of Oncology in [address] [phone] Kerrie Vela M.B., B.ChForeign, M.D. [address] [place] [phone] 12/04/2024 11:00 AM CDT Infusion Department of Oncology in [address] [phone] Kerrie Vela M.B., B.Ch., M.DForeign [address] [place] [phone] documented as of this encounter Visit Diagnoses Not on filedocumented in this encounter Additional Health Concerns Infection Onset Date Last Indicated Resolved Time Protective Environment 07/05/2024 07/05/202409/02 6:26 AM CDT Assessment Noted Time PHQ-9 Depression Total Score: 0 07/04/19 24 9:20 AM WEB WORKER documented as of this encounter Care Teams Garnetter Relationship Specialty Start Date End Date Jenny Vaca M.D. NPAria: [phone] [address] [place] [phone] PCP - General 11/11/16 documented as of this encounter
--- OUTSIDE RECORDS SUMMARY | 2024-09-13 12:41 | XMS_ITS | Encounter Summary ---
Author Organization [facility] Address [address] [place] [address] Care Team Providers Care Dressing Machine Operator Name Role Phone Jenny Vaca M.D. 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 [facility] [place] [address] Phone: tel: fax: Department of Oncology in [place], [place] [address] [place] [address] Phone: tel: fax: Referral ID Status Reason Start Date Expiration Date Visits Re quested Visits Authorized [id number] Closed 12/20/2023 12/19/2025 99 [phone] Encounter Details Date Type Department Care Team (Late st Contact Info) Description 08/02/2024 9:30 AM TESTING CONSULTANT Infusion Department of Infusion Therapy in [place], [place] [address] [facility] [place] [phone] Marlo Diallo M.D. 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) (Primary Dx); Cancer Lung Small Cell Personal History; [facility] Current Drug Therapy, 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; Secondary Malignant Neoplasm Lymph Node (HCC) Social History Tobacco Use Types Packs/Day Years Used Date Smoking Tobacco: Every Day Cigarettes 0.5 60 Passive Smoke Exposure: Current Smokeless Tobacco: Never Alcohol Use Standard Drinks/Week Comments Yes 1 (1 standard drink = 0.6 oz pur e alcohol) 1 beer per night [facility] Utilities Answer Date Recorded In the past 12 months has [employer], gas, oil, or water PAK threatened to shut off services in your [...] How often do you attend chur or church services? More than 4 times [...] your living situation today? I have a [facility] place to live 07/08/2023 Comments No Sex and Gender Information Value Date Recorded Sex Assigned at Not on file Legal Sex Female 8:27 AM TESTING CONSULTANT Gender Identity Female 04/06/2017 8:58 AM TESTING CONSULTANT Sexual Orientation Straight 04/06/2017 8: 58 AM TESTING CONSULTANT documented as of this encounter Last Filed Vital Signs Vital Sign Reading Time Taken Comments Blood Pressure 132/63 08/02/2024 9:48 AM TESTING CONSULTANT Pulse 77 08/02/2024 9:48 AM TESTING CONSULTANT Temperature 36.5 C (97.7 F) 08/02/2024 9:48 AM TESTING CONSULTANT Respiratory Rate 18 08/02/2024 9:48 AM TESTING CONSULTANT Oxygen Saturation 100% 08/02/2024 9:48 AM TESTING CONSULTANT Inhaled Oxygen Concentration - - Weight - - Height - - Body Mass Index - - documented in this encounter Plan of Treatment Upcoming Encounters Date Type Department Care Team (Late st Contact Info) Description 09/14/2024 11:00 AM CDT Admin Visit Department of Oncology in [place], [place] [address] [place] [address] 09/17/2024 8:00 AM CDT Lab Department of Infusion Therapy in [place], [place] [address] [place] [phone] Jenny Vaca M.D. [address] [address] 09/17/2024 1:30 PM CDT Office Visit Department of Internal Medicine in [place], [place] [address] [place] [phone] Elissa Luo P.A.-C., M.S. [address] [place] [address] 09/18/2024 8:00 AM CDT Clinical Support Department of Oncology in [place], [place] [address] [place] [phone] Blossom Hernandez, M.S.W., L.I.C.S.W. [address] [place] [phone] 09/20/2024 10:00 AM CDT Telemedicine Department of Oncology in [place], [place] [address] [place] [phone] Kerrie Vela M.B., B.Ch., M.D. [address] [place] [phone] 09/24/2024 8:30 AM CDT Lab Department of Oncology in [place], [place] [address] [place] [phone] Kerrie Vela M.B., B.Ch., M.D. [address] [place] [phone] 09/24/2024 9:40 AM CDT Office Visit Department of Oncology in [place], [place] [address] [place] [phone] Kerrie Vela M.B., B.Ch., M.D. [address] [place] [phone] 09/24/2024 10:20 AM CDT Education Department of Oncology in [place], [place] [address] [place] [phone] Kerrie Vela M.B., BDuran, M.DForeign [address] [place] [phone] 09/24/2024 11:30 AM CDT Appointment [facility], [facility], [facility] [address] [place] [phone] Kerrie Vela M.B., BDuran, M.DForeign [address] [place] [phone] 09/25/2024 8:30 AM CDT Appointment [facility], [facility], [facility] [address] [place] [phone] Kerrie Vela M.B., BForeignChForeign, M.DForeign [address] [place] [phone] 09/26/2024 8:30 AM CDT Appointment [facility], [facility], [facility] [address] [place] [phone] Kerrie Vela M.B., B.ChForeign, M.DForeign [address] [place] [phone] 09/28/2024 11:45 AM CDT Lab Department of Oncology in [place], [place] [address] [place] [phone] Kerrie Vela M.B., B.ChForeign, M.DForeign [address] [place] [phone] 09/28/2024 1:40 PM CDT Office Visit Department of Oncology in [place], [place] [address] [place] [phone] Dawood Ruiz P.A.-C. [address] [place] [phone] 10/01/2024 8:00 AM CDT Appointment [facility], [facility], [facility] [address] [place] [phone] Kerrie Vela M.B., B.ChForeign, M.D. [address] [place] [phone] 10/02/2024 8:00 AM CDT Appointment [facility], [facility], [facility] [address] [place] [phone] Kerrie Vela M.B., B.ChForeign, M.DForeign [address] [place] [phone] 10/03/2024 8:00 AM CDT Appointment [facility], [facility], [facility] [address] [place] [phone] Kerrie Vela M.B., B.ChForeign, M.DForeign [address] [place] [phone] 10/10/2024 6:30 AM CDT Lab Department of Oncology in [place], [place] [address] [place] [phone] Kerrie Vela M.B., B.Ch., M.DForeign [address] [place] [phone] 10/10/2024 8:20 AM CDT Office Visit Department of Oncology in [place], [place] [address] [place] [phone] Brittney Stuart M.D. [address] [place] [phone] 10/10/2024 12:30 PM CDT Infusion Department of Oncology in [place], [place] [address] [place] [phone] Kerrie Vela M.B., B., M.DForeign [address] [place] [phone] 10/12/2024 11:20 AM CDT Office Visit Department of Oncology in [place], [place] [address] [place] [phone] Kerrie Vela M.B., B.Ch., M.D. [address] [place] [phone] 10/17/2024 1:00 PM CDT Office Visit Department of Ophthalmology in [place], [place] [address] [place] [phone] Tomás Mcbride M.D. [address] [place] [phone] 10/23/2024 8:45 AM CDT Lab Department of Oncology in [place], [place] [address] [place] [phone] Kerrie Vela M.B., B.Ch., M.D. [address] [place] [phone] 10/23/2024 11:00 AM CDT Office Visit Department of Oncology in [place], [place] [address] [place] [phone] Kerrie Vela M.B., BDuran, MPhuc [address] [place] [phone] 10/23/2024 11:30 AM CDT Appointment Department of Radiology in [place], [place] [address] [place] [phone] Franny Dutta M.D. [address] [place] [phone] 10/24/2024 7:30 AM CDT Infusion Department of Oncology in [place], [place] [address] [place] [phone] Kerrie Vela M.B., BDuran, MPhuc [address] [place] [phone] 10/24/2024 11:00 AM CDT Appointment Department of Radiation Oncology in [place], [place] [address] [place] [phone] Franny Dutta M.D. [address] [place] [phone] 10/25/2024 11:00 AM CDT Office Visit Department of Oncology in [place], [place] [address] [place] [phone] Kerrie Vela M.B., B.ChForeign, M.DForeign [address] [place] [phone] 11/06/2024 7:00 AM CDT Lab Department of Oncology in [place], [place] [address] [place] [phone] Kerrie Vela M.B., B.ChForeign, M.DForeign [address] [place] [phone] 11/06/2024 9:00 AM CDT Office Visit Department of Oncology in [place], [place] [address] [place] [phone] Dawood Ruiz, P.A.-CForeign [address] [place] [phone] 11/06/2024 10:00 AM CDT Infusion Department of Oncology in [place], [place] [address] [place] [phone] Kerrie Vela M.B., B., M.DForeign [address] [place] [phone] 11/20/2024 6:30 AM CDT Lab Department of Laboratory Medicine and Pathology, [facility] in [place], [place] [address] [place] [phone] Kerrie Vela M.B., B.ChForeign, M.DForeign [address] [place] [phone] 11/20/2024 8:20 AM CDT Office Visit Department of Oncology in [place], [place] [address] [place] [phone] Dawood Ruiz, P.A.-CForeign [address] [place] [phone] 11/20/2024 9:00 AM CDT Infusion Department of Oncology in [place], [place] [address] [place] [phone] Kerrie Vela M.B., B.ChForeign, M.D. [address] [place] [phone] 12/04/2024 8:30 AM CDT Lab Department of Laboratory Medicine and Pathology, [facility], in [place], [place] [address] [place] [phone] Kerrie Vela M.B., Trevor, MPhuc [address] [place] [phone] 12/04/2024 10:20 AM CDT Office Visit Department of Oncology in [place], [place] [address] [place] [phone] Kerrie Vela M.B., Trevor, M.Cecelia [address] [place] [phone] 12/04/2024 11:00 AM CDT Infusion Department of Oncology in [place], [place] [address] [place] [phone] Kerrie Vela M.B., BDuran, M.D. 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 Secondary Malignant Neoplasm Lymph Node (HCC) documented in this encounter Administered Medications Inactive Administered Medications - up to 3 most recent administrations Medication Order MAR Action Action Date Dose Rate Site dexAMETHasone injection 10 mg (Decadron) 10 mg, intravenous, Once, On Sravanthi 08/02/24 at 1015, For 1 doseIndications:Cancer Lung Small Cell Personal History,Plate And 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 Current Drug Therapy, 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,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) New Bag 08/02/2024 9:53 AM TESTING CONSULTANT 3.6 mg 282 mL/hr NaCl 0.9 % bolus 1,000 mL 1,000 mL, intravenous, at 1,000 mL/hr, Administer over 1 Hours, Once, On Sravanthi 08/02/24 at 1015, For 1 doseIndications: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),Secondary Malignant Neoplasm Lymph Node (HCC) New Bag 08/02/2024 10:15 AM TESTING CONSULTANT 1,000 mL 1000 mL/hr palonosetron injection 0.25 mg (Aloxi) 0.25 mg, intravenous, Once, On Sravanthi 08/02/24 at 1015, For 1 doseIndications:Cancer Lung Small Cell Personal History,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 Current Drug Therapy, 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,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) Given 08/02/2024 9:51 AM TESTING CONSULTANT 0.25 mg sodium chloride 0.9 % injection 10 mL 10 mL, intra-catheter, As needed, line care, Starting on Sravanthi 08/02/24 at 0948, When IVAD Accessed and in Use: Flush prior to and following infusion, between multiple consecutive infusions, and prior to blood sampling.Indications:Cancer Lung Small Cell Personal History Given 08/02/2024 11:01 AM TESTING CONSULTANT 10 mL Given 08/02/2024 9:51 AM TESTING CONSULTANT 10 mL Given 08/02/2024 9:50 AM TESTING CONSULTANT 10 mL documented in this encounter Additional Health Concerns Infection Onset Date Last Indicated Resolved Time Protective Environment 07/05/2024 07/05/202409/02 6:26 AM CDT Assessment Noted Time PHQ-9 Depression Total Score: 0 07/04/19 24 9:20 AM TESTING CONSULTANT documented as of this encounter Care Teams Dressing Machine Operator Relationship Specialty Start Date End Date Jenny Vaca M.D. [address] [place] [phone] PCP - General 11/11/16 documented as of this encounter
--- OUTSIDE RECORDS SUMMARY | 2024-09-13 12:41 | XMS_ITS | Encounter Summary ---
Author Organization [facility] Address [address] [place] [address] Care Team Providers Care Stopper Grinder Name Role Phone Jenny Vaca M.D. 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 [address] [place] [phone] Phone: tel: fax: [facility] Referral ID Status Reason Start Date Expiration Date V isits Requested Visits Authorized [id number] Authorized 07/31/2024 10/31/2025 1 1 FEEDER * Outpatient (Routine) - Closed Specialty Diagnoses / Procedures Referred By Contac t Referred To Contact Radiation Oncology Kay Thayer P.A.-C., M.S. [address] [place] [phone] Phone: tel: fax: Franny Dutta M.D. [address] [place] [phone] Phone: tel: fax: Referral ID Status Reason Start Date Expiration Date Visits Re quested Visits Authorized [id number] Closed 07/31/2024 01/30/2026 1 1 Scheduling Instructions PET-CT and MRI brain prior at [facility] FEEDER * MRI/CAT/PET Scan (Routine) - Closed Specialty Diagnoses / Procedures Referred By Contac t Referred To Contact Radiology Diagnoses Secondary Malignant Neoplasm Brain (HCC) Procedures MR Brain without and with IV Contrast Kay Thayer P.A.-C., M.S. [address] [place] [phone] Phone: tel: fax: [facility] Referral ID Status Reason Start Date Expiration Date Visits Re quested Visits Authorized [id number] Closed 07/31/2024 10/31/2025 1 1 FEEDER * Outpatient (Routine) - Closed Specialty Diagnoses / Procedures Referred By Cynthia eagle Referred To Contact Radiation Oncology Franny Dutta M.D. [address] [place] [phone] Phone: tel: fax: Franny Dutta M.D. [address] [place] [phone] Phone: tel: fax: Referral ID Status Reason Start Date Expiration Date Visits Re quested Visits Authorized [id number] Closed 06/19/2024 12/19/2025 1 1 Scheduling Instructions Please schedule a few days after brain MRI at [facility]. FEEDER Reason for Visit * Outpatient (Routine) - Closed Specialty Diagnoses / Procedures Referred By Cynthia eagle Referred To Contact Radiation Oncology Franny Dutta M.D. [address] [place] [phone] Phone: tel: fax: Franny Dutta M.D. [address] [place] [phone] Phone: tel: fax: Referral ID Status Reason Start Date Expiration Date Visits Re quested Visits Authorized [id number] Closed 06/19/2024 12/19/2025 1 1 Encounter Details Date Type Department Care Team (Latest Contact Info) Description 07/31/2024 3:14 PM SAW FEEDER - 07/31/2024 4:34 PM SAW FEEDER Hospital Encounter Department of Radiation Oncology in [place], [place] [address] [place] [address] Franny Dutta M.D. 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 More than 4 times per year 09/27/2022 Do you belong to any clubs o r organizations such as congregation groups, unions, fraternal or athletic groups, or [...] Answer Date Recorded PHQ-2 Score 0 06/18/2024 [facility] - Occupational [...] your living situation today? I have a [facility] place to live 07/08/2023 Comments No Sex and Gender Information Value Date Recorded Sex Assigned at Not on file Legal Sex Female 8:27 AM SAW FEEDER Gender Identity Female 04/06/2017 8:58 AM SAW FEEDER Sexual Orientation Straight 04/06/2017 8: 58 AM SAW FEEDER documented as of this encounter Last Filed Vital Signs Vital Sign Reading Time Taken Comments Blood Pressure 102/45 07/31/2024 3:24 PM SAW FEEDER Pulse 87 07/31/2024 3:24 PM SAW FEEDER Temperature 36.5 C (97.7 F) 07/31/2024 3:24 PM SAW FEEDER Respiratory Rate - - Oxygen Saturation - - Inhaled Oxygen Concentration - - Weight 60.9 kg (134 lb 4.2 oz) 07/31/2024 3:24 P M SAW FEEDER Height - - Body Mass Index 22.37 06/22/2024 10:59 AM SAW FEEDER documented in this encounter Medications at Time [...] 3 1 blood-glucose meter,continuous (FreeStyle [place]elo 3 [place]) 1 each (1 Device total) as directed. [...] retention). 90 tablet 3 4 HYDROcodone-aceta minophen ([place]ams) 5-325 mg per tabletIndications :Chronic Pain/Nonacute Pain [...] under the skin. 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 - 07/31/2024 3:30 PM CST SUBJECTIVE DIAGNOSIS 1. Secondary Malignant Neoplasm Brain (HCC) SUPERVISED BY: Franny Dutta M.D. HISTORY OF PRESENT ILLNESS Mrs. 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 She completed radiation therapy to the brain metastasis on June 20, 2024. 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 Plan to continue lurbinectedin every 3 weeks. [...] evaluate for interval change/resolution of the enhancement. INTERVAL HISTORY: The patient was seen and examined today with Dr. Dutta. The patient reports doing well overall. She reports persistent fatigue. She reports tolerating treatment with lurbinectedin well overall, but she has noticed increased blood glucose levels following treatment and she had a single episode of night sweats after her last treatment. She reports that symptoms last for the first day following treatment and then improve. She denies shortness of breath or cough. She denies pain. She has occasional headaches that she would consider normal. She reports improvement in her right eye vision. She reports occasional nausea, unchanged. She also reports chronic, occasional fecal incontinence, also unchanged. She denies numbness, tingling, or weakness. She re ports decreased balance, but denies any recent falls. She does have a cane available for ambulationif needed. She denies memory or cognitive changes. REVIEW OF SYSTEMS Review of systems was negative except as documented above. OBJECTIVE BP (!) 102/45 (BP Location: Right arm, Patient Position: Sitting, Cuff Size: Regular) Pulse 87 Temp 36.5 ??C (Temporal) Wt 60.9 kg BMI 22.37 kg/m?? PHYSICAL EXAMINATION General: Patient is alert and oriented and in no apparent distress. Heart: Regular rate and rhythm. Lungs: Clear to auscultation bilaterally. Neuro: CN II-XII grossly intact. Sensation to light touch intact bilaterally. Strength is normal inthe upper and lower extremities. Fzamov-qt-mbvp, tjvg-nz-buxt, and rapid alternating movements are normal. Recall 3/3 words. Able to spell the word WORLD backwards. 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 The patient is doing well overall. We reviewed her recent brain MRI result and images that demonstrated near complete resolution of the treated enhancing lesion in the left gyrus rectus. There was a new enhancing lesion in the superior left cerebellar hemisphere. Recommended considering a follow-upbrain MRI in 4-6 weeks. The patient is not experiencing any new neurologic symptoms of concern at this time. The patient is continuing treatment with lurbinectedin under the care of Dr. Diallo. She is scheduled for a PET-CT scan on August 30, 2024. She has follow-up with Dr. Diallo on September 05, 2024. We will order for a repeat brain MRI to be done in 1 month at [facility]. We will then order for a return visit to be scheduled here following the imaging. We will also order for CT simulation to be pre-scheduled if needed for SRS to the brain lesion, pending the MRI result. The patient will contact us with questions or concerns. She verbally expressed her understanding of the plan. EDUCATION: Ready to learn, no apparent learning barriers were identified; learning preferences include listening. Explained diagnosis and treatment plan; patient expressed understanding of the content. I personally spent 35 minutes in care of the patient today. Time includes both non face to face andface to face patient care. Signed by: Kay Thayer P.A.-C., M.SForeign 07/31/2024 4:03 PM SAW FEEDER [facility] [address] [place] [address] Cosigned by Franny Dutta M.D. at 07/31/2024 4:53 PM SAW FEEDER FEEDER FEEDER Associated attestation - Franny Dutta M.D. - 07/31/2024 4:53 PM SAW FEEDER I saw and evaluated the patient and participated in the ghotra portions of the service as noted below.Please see Ms. Kay Thayer PA-C, MS note for additional details. Franny Dutta M.D., 07/31/2024 documented in this encounter Plan of Treatment Upcoming Encounters Date Type Department Care Team (Late st Contact Info) Description 09/14/2024 11:00 AM CDT Admin Visit Department of Oncology in [place], [place] [address] [place] [phone] 09/17/2024 8:00 AM CDT Lab Department of Infusion Therapy in [place], [place] [address] [phone] Jenny Vaca M.D. [address] [address] 09/17/2024 1:30 PM CDT Office Visit Department of Internal Medicine in [place], [place] [address] [phone] Elissa Luo, P.A.-C., M.S. [address] [phone] 09/18/2024 8:00 AM CDT Clinical Support Department of Oncology in [place], [place] [address] [place] [phone] Blossom Hernandez M.S.W., L.I.C.S.W. [address] [place] [phone] 09/20/2024 10:00 AM CDT Telemedicine Department of Oncology in [address] [phone] Kerrie Vela M.B., B.ChForeign, MForeignDForeign [address] [place] [phone] 09/24/2024 8:30 AM CDT Lab Department of Oncology in [place], [place] [address] [place] [address] Kerrie Vela M.B., B.ChForeign, M.DForeign [address] [place] [phone] 09/24/2024 9:40 AM CDT Office Visit Department of Oncology in [place], [place] [address] [place] [phone] Kerrie Vela M.B., BForeignChForeign, M.DForeign [address] [place] [phone] 09/24/2024 10:20 AM CDT Education Department of Oncology in [place], [place] [address] [place] [address] Kerrie Vela M.B., B.ChForeign, M.DForeign [address] [place] [phone] 09/24/2024 11:30 AM CDT Appointment [facility], [facility], [facility] [address] [place] [phone] Kerrie Vela M.B., B.ChForeign, M.DForeign [address] [place] [phone] 09/25/2024 8:30 AM CDT Appointment [facility], [facility], [facility] Level [address] [place] [phone] Kerrie Vela M.B., B.ChForeign, M.DForeign [address] [place] [phone] 09/26/2024 8:30 AM CDT Appointment [facility], [facility], [facility] [address] [place] [phone] Kerrie Vela M.B., B., M.DForeign [address] [place] [phone] 09/28/2024 11:45 AM CDT Lab Department of Oncology in [place], [place] [address] [place] [phone] Kerrie Vela M.B., B., M.DForeign [address] [place] [phone] 09/28/2024 1:40 PM CDT Office Visit Department of Oncology in [place], [place] [address] [place] [phone] Dawood Ruiz P.A.-C. [address] [place] [phone] 10/01/2024 8:00 AM CDT Appointment [facility], [facility], [facility] [address] [place] [phone] Kerrie Vela M.B., B.ChForeign, M.DForeign [address] [place] [phone] 10/02/2024 8:00 AM CDT Appointment [facility], [facility], [facility] [address] [place] [phone] Kerrie Vela M.B., B.ChForeign, M.DForeign [address] [place] [phone] 10/03/2024 8:00 AM CDT Appointment [facility], [facility], [facility], Lobby Level [address] [place] [address] Kerrie Vela M.B., B.ChForeign, M.DForeign [address] [place] [phone] 10/10/2024 6:30 AM CDT Lab Department of Oncology in [place], [place] [address] [place] [phone] Kerrie Vela M.B., B.ChForeign, M.DForeign [address] [place] [phone] 10/10/2024 8:20 AM CDT Office Visit Department of Oncology in [place], [place] [address] [place] [phone] Brittney Stuart M.D. [address] [place] [phone] 10/10/2024 12:30 PM CDT Infusion Department of Oncology in [place], [place] [address] [place] [phone] Kerrie Vela M.B., B.Ch., M.D. [address] [place] [phone] 10/12/2024 11:20 AM CDT Office Visit Department of Oncology in [place], [place] [address] [place] [phone] Kerrie Vela M.B., B.Ch., M.D. [address] [place] [phone] 10/17/2024 1:00 PM CDT Office Visit Department of Ophthalmology in [place], [place] [address] [place] [address] Tomás Mcbride M.D. [address] [place] [phone] 10/23/2024 8:45 AM CDT Lab Department of Oncology in [place], [place] [address] [place] [phone] Kerrie Vela M.B., B.ChForeign, M.D. [address] [place] [phone] 10/23/2024 11:00 AM CDT Office Visit Department of Oncology in [place], [place] [address] [place] [phone] Kerrie Vela M.B., B.Ch., M.D. [address] [place] [phone] 10/23/2024 11:30 AM CDT Appointment Department of Radiology in [place], [place] [address] [place] [phone] Franny Dutta M.D. [address] [place] [phone] 10/24/2024 7:30 AM CDT Infusion Department of Oncology in [place], [place] [address] [place] [address] Kerrie Vela M.B., B.Ch., M.D. [address] [place] [phone] 10/24/2024 11:00 AM CDT Appointment Department of Radiation Oncology in [place], [place] [address] [place] [address] Franny Dutta M.D. [address] [place] [phone] 10/25/2024 11:00 AM CDT Office Visit Department of Oncology in [place], [place] [address] [place] [address] Kerrie Vela M.B., BDuran, M.DForeign [address] [place] [phone] 11/06/2024 7:00 AM CDT Lab Department of Oncology in [place], [place] [address] [place] [phone] Kerrie Vela M.B., B., M.DForeign [address] [place] [phone] 11/06/2024 9:00 AM CDT Office Visit Department of Oncology in [place], [place] [address] [place] [phone] Dawood Ruiz P.A.-C. [address] [place] [phone] 11/06/2024 10:00 AM CDT Infusion Department of Oncology in [place], [place] [address] [place] [phone] Kerrie Vela M.B., B.ChForeign, M.D. [address] [place] [phone] 11/20/2024 6:30 AM CDT Lab Department of Laboratory Medicine and Pathology, [facility], in [place], [place] [address] [place] [address] Kerrie Vela M.B., B.Ch., M.DForeign [address] [place] [phone] 11/20/2024 8:20 AM CDT Office Visit Department of Oncology in [place], [place] [address] [place] [phone] Dawood Ruiz P.A.-C. [address] [place] [phone] 11/20/2024 9:00 AM CDT Infusion Department of Oncology in [place], [place] [address] [place] [phone] Kerrie Vela M.B., B.ChForeign, M.DForeign [address] [place] [phone] 12/04/2024 8:30 AM CDT Lab Department of Laboratory Medicine and Pathology, [facility] in [place], [place] [address] [place] [phone] Kerrie Vela M.B., B.Ch., M.DForeign [address] [place] [phone] 12/04/2024 10:20 AM CDT Office Visit Department of Oncology in [place], [place] [address] [place] [phone] Kerrie Vela M.B., B.Ch., M.D. [address] [place] [phone] 12/04/2024 11:00 AM CDT Infusion Department of Oncology in [place], [place] [address] [place] [phone] Kerrie Vela M.B., B.Ch., M.D. 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 09/05/2024 3:57 PM Initial Rad Onc Treatment Planning CT Simulation Performed by: Franny Dutta M.D. Authorized by: Franny Dutta M.D. Franny Dutta M.D. 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 [address] [place] [phone] PCP - General 11/11/16 documented as of this encounter
--- OUTSIDE RECORDS SUMMARY | 2024-09-13 12:42 | XMS_ITS | Encounter Summary ---
Author Organization [facility] Address [address] [place] [address] Care Team Providers Care Locomotive Electrician Name Role Phone Jenny Vaca M.D. Primary Care Provider [phone] Encounter Details Date Type Department Care Team (Late st Contact Info) Description 06/13/2015 Historical Ophthalmology RST OPH Richard Wright M.D., M.S. [address] [place] [address] Social History Tobacco Use Types Packs/Day Years Used Date Smoking Tobacco: Never Assessed Comments Unknown Sex and Gender Information Value Date Recorded Sex Assigned at Not on file Legal Sex Female 8:27 AM FILTRATION OPERATOR Gender Identity Female 04/06/2017 8:58 AM FILTRATION OPERATOR Sexual Orientation Straight 04/06/2017 8: 58 AM FILTRATION OPERATOR documented as of this encounter Progress Notes * Richard Wright M.D. - 06/13/2015 9:36 AM CST Eye General HISTORY OF PRESENT ILLNESS 69yo female with history of glaucoma and uveitis. Has been followed by Dr. Mcbride. Unable to controlIOP with drops, SLT and oral meds. Also has history of proliferative diabetic retinopathy. Referredfor opinion. She reports no changes in vision. Patient denies ocular pain. Eyes feel tired. No double vision. Diabetic 04/13 last A1c 7.1; Glucose 201. gwr: vision is stable. IMPRESSION / REPORT / PLAN #1 Steroid induced glaucoma By history, her first elevated pressures were after starting topical steroid. CT 504/495 OCT 06/14 (rnfl): right - 74uM, superior and inferior thinning; left - 81uM inferior thinning; adequate signal VF 06/14 (KENDRICK): right - superior and inferior arcs, difficult to directly compare, roughly stable from previous 30-2; superior and inferior arcs, difficult to directly compare, roughly stable from previous 30-2; scotomas likely PRP related instead of glaucoma IOP too high - likely needs target of high teens currently on methazolamide 50mg BID (Started May 01, transitioned to acetazolamide briefly which was discontinued secondary to side effects) brimonidine TID both Cosopt BID both Lumigan QHS right Recommend SLT right (within 2 weeks) then left in near future Risks, benefits and alternatives discussed and all questions answered. Patient wishes to proceed. 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 She is not sure if she has been tapered to once daily since this started circa 2011. 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 [address] [phone] 09/17/2024 1:30 PM CDT Office Visit Department of Internal Medicine in [place], [place] [address] [phone] Elissa Luo P.A.-C., M.S. [address] [phone] 09/18/2024 8:00 AM CDT Clinical Support Department of Oncology in [address] [phone] Blossom Hernandez, M.S.W., L.I.C.S.W. [address] [place] [phone] 09/20/2024 10:00 AM CDT Telemedicine Department of Oncology in [address] [phone] Kerrie Vela M.B., B.Ch., M.D. [address] [place] [phone] 09/24/2024 8:30 AM CDT Lab Department of Oncology in [place], [place] [address] [place] [phone] Kerrie Vela M.B., B.Ch., M.D. [address] [place] [phone] 09/24/2024 9:40 AM CDT Office Visit Department of Oncology in [place], [place] [address] [place] [phone] Kerrie Vela M.B., Trevor, MPhuc [address] [place] [phone] 09/24/2024 10:20 AM CDT Education Department of Oncology in [place], [place] [address] [place] [phone] Kerrie Vela M.B., Trevor, M.Cecelia [address] [place] [phone] 09/24/2024 11:30 AM CDT Appointment [facility], [facility], [facility] [address] [place] [phone] Kerrie Vela M.B., Trevor, M.DForeign [address] [place] [phone] 09/25/2024 8:30 AM CDT Appointment [facility], [facility], [facility] [address] [place] [address] Kerrie Vela M.B., Trevor, M.DForeign [address] [place] [phone] 09/26/2024 8:30 AM CDT Appointment [facility], [facility], [facility] [address] [place] [phone] Kerrie Vela M.B., Trevor, M.Cecelia [address] [place] [phone] 09/28/2024 11:45 AM CDT Lab Department of Oncology in [place], [place] [address] [place] [phone] Kerrie Vela M.B., Trevor, MPhuc [address] [place] [phone] 09/28/2024 1:40 PM CDT Office Visit Department of Oncology in [place], [place] [address] [place] [phone] Dawood Ruiz P.A.-C. [address] [place] [phone] 10/01/2024 8:00 AM CDT Appointment [facility], [facility], [facility] [address] [place] [phone] Kerrie Vela M.B., Trevor, MForeignDForeign [address] [place] [phone] 10/02/2024 8:00 AM CDT Appointment [facility], [facility], [facility] [address] [place] [phone] Kerrie Vela M.B., Trevor, MForeignDForeign [address] [place] [phone] 10/03/2024 8:00 AM CDT Appointment [facility], [facility], [facility] [address] [place] [phone] Kerrie Vela M.B., Trevor, M.DForeign [address] [place] [phone] 10/10/2024 6:30 AM CDT Lab Department of Oncology in [place], [place] [address] [place] [phone] Kerrie Vela M.B., BForeignChForeign, M.Cecelia [address] [place] [phone] 10/10/2024 8:20 AM CDT Office Visit Department of Oncology in [place], [place] [address] [place] [phone] Brittney Stuart M.D. [address] [place] [phone] 10/10/2024 12:30 PM CDT Infusion Department of Oncology in [place], [place] [address] [place] [phone] Kerrie Vela M.B., B., M.DForeign [address] [place] [phone] 10/12/2024 11:20 AM CDT Office Visit Department of Oncology in [place], [place] [address] [place] [phone] Kerrie Vela M.B., B.ChForeign, M.DForeign [address] [place] [phone] 10/17/2024 1:00 PM CDT Office Visit Department of Ophthalmology in [place], [place] [address] [place] [phone] Tomás Mcbride M.D. [address] [place] [phone] 10/23/2024 8:45 AM CDT Lab Department of Oncology in [place], [place] [address] [place] [phone] Kerrie Vela M.B., B.ChForeign, M.DForeign [address] [place] [phone] 10/23/2024 11:00 AM CDT Office Visit Department of Oncology in [place], [place] [address] [place] [phone] Kerrie Vela M.B., BDuran, M.DForeign [address] [place] [phone] 10/23/2024 11:30 AM CDT Appointment Department of Radiology in [place], [place] [address] [place] [phone] Franny Dutta M.D. [address] [place] [phone] 10/24/2024 7:30 AM CDT Infusion Department of Oncology in [place], [place] [address] [place] [phone] Kerrie Vela M.B., BDuran, MForeignDForeign [address] [place] [phone] 10/24/2024 11:00 AM CDT Appointment Department of Radiation Oncology in [place], [place] [address] [place] [phone] Franny Dutta M.D. [address] [place] [phone] 10/25/2024 11:00 AM CDT Office Visit Department of Oncology in [place], [place] [address] [place] [phone] Kerrie Vela M.B., B., M.DForeign [address] [place] [phone] 11/06/2024 7:00 AM CDT Lab Department of Oncology in [place], [place] [address] [place] [phone] Kerrie Vela M.B., Trevor, MPhuc [address] [place] [phone] 11/06/2024 9:00 AM CDT Office Visit Department of Oncology in [place], [place] [address] [place] [phone] Dawood Ruiz, P.A.-CForeign [address] [place] [phone] 11/06/2024 10:00 AM CDT Infusion Department of Oncology in [place], [place] [address] [place] [phone] Kerrie Vela M.B., BDuran, M.Cecelia [address] [place] [phone] 11/20/2024 6:30 AM CDT Lab Department of Laboratory Medicine and Pathology, [facility] in [place], [place] [address] [place] [phone] Kerrie Vela M.B., BDuran, M.Cecelia [address] [place] [phone] 11/20/2024 8:20 AM CDT Office Visit Department of Oncology in [place], [place] [address] [place] [phone] Dawood Riuz, P.A.-CForeign [address] [place] [phone] 11/20/2024 9:00 AM CDT Infusion Department of Oncology in [place], [place] [address] [place] [phone] Kerrie Vela M.B., B., M.DForeign [address] [place] [phone] 12/04/2024 8:30 AM CDT Lab Department of Laboratory Medicine and Pathology, [facility], in [place], [place] [address] [place] [phone] Kerrie Vela M.B., BDuran, M.DForeign [address] [place] [phone] 12/04/2024 10:20 AM CDT Office Visit Department of Oncology in [place], [place] [address] [place] [phone] Kerrie Vela M.B., BDuran, M.DForeign [address] [place] [phone] 12/04/2024 11:00 AM CDT Infusion Department of Oncology in [place], [place] [address] [place] [phone] Kerrie Vela M.B., B., M.DForeign [address] [place] [phone] documented as of this encounter Visit Diagnoses Not on filedocumented in this encounter Additional Health Concerns Infection Onset Date Last Indicated Resolved Time COVID19 Pending 09/25/2019 09/25/2019 09/26/2019 1 :51 AM CDT COVID19 Pending 11/08/2019 11/08/2019 11/09/2019 1 :40 AM CDT COVID19 Pending 12/20/2019 12/20/2019 12/21/2019 1 1:51 AM CDT Protective Environment 02/21/2023 02/21/202305/08 5:44 AM FILTRATION OPERATOR Protective Environment 05/11/2023 05/11/202306/13 6:17 AM FILTRATION OPERATOR Protective Environment 06/27/2023 06/27/202310/15 5:30 AM CDT Protective Environment 10/28/2023 10/28/202306/25 5:58 AM FILTRATION OPERATOR Protective Environment 07/05/2024 07/05/202409/02 6:26 AM CDT Assessment Noted Time PHQ-9 Depression Total Score: 0 08/01/19 8:33 AM FILTRATION OPERATOR documented as of this encounter Care Teams Locomotive Electrician Relationship Specialty Start Date End Date Jenny Vaca M.D. NPAria: [phone] [address] [place] [phone] PCP - General 11/11/16 documented as of this encounter
--- OUTSIDE RECORDS SUMMARY | 2024-09-13 12:42 | XMS_ITS | Encounter Summary ---
Author Organization [facility] Address [address] [place] [address] Care Team Providers Care Associate Attorney Name Role Phone Jenny Vaca M.D. Primary Care Provider [phone] Reason for Referral * MRI/CAT/PET Scan (Routine) - Closed Specialty Diagnoses / Procedures Referred By Cynthia eagle Referred To Contact Radiology Diagnoses Secondary Malignant Neoplasm Brain (HCC) Procedures MR Brain without and with IV Contrast Franny Dutta M.D. [address] [place] [address] Phone: tel: fax: [facility] Region Referral ID Status Reason Start Date Expiration Date Visits Re quested Visits Authorized [id number] Closed 06/19/2024 09/19/2025 1 1 ICAL VETERINARIAN Reason for Visit * MRI/CAT/PET Scan (Routine) - Closed Specialty Diagnoses / Procedures Referred By Cynthia eagle Referred To Contact Radiology Diagnoses Secondary Malignant Neoplasm Brain (HCC) Procedures MR Brain without and with IV Contrast Franny Dutta M.D. [address] [place] [address] Phone: tel: fax: [facility] Region Referral ID Status Reason Start Date Expiration Date Visits Re quested Visits Authorized [id number] Closed 06/19/2024 09/19/2025 1 1 Encounter Details Date Type Department Care Team (Latest Contact Info) Description 07/30/2024 9:14 AM CLINICAL VETERINARIAN - 07/30/2024 11:59 PM CLINICAL VETERINARIAN Hospital Encounter Department of Radiology in [place], [place] [address] [place] [address] Franny Dutta M.D. [address] [place] [address] Secondary Malignant Neoplasm Brain (HCC) Discharge Disposition: Home or Self Care Social History Tobacco Use Types Packs/Day Years Used Date Smoking Tobacco: Every Day Cigarettes 0.5 60 Passive Smoke Exposure: Current Smokeless Tobacco: Never Alcohol Use Standard Drinks/Week Comments Yes 1 (1 standard drink = 0.6 oz pur e alcohol) 1 beer per night [facility] [employer] Answer Date Recorded In the past 12 months has [employer], gas, oil, or water [employer] threatened to shut off services in your [...] often do you attend chur ch or moravian services? More than 4 times per year 09/27/2022 Do you belong to any clubs o r organizations such as orthodox groups, unions, fraternal or athletic groups, or [...] Answer Date Recorded PHQ-2 Score 0 06/18/2024 [facility] - [...] your living situation today? [facility] live 07/08/2023 Comments No Sex and Gender Information Value Date Recorded Sex Assigned at Not on file Legal Sex Female 8:27 AM CLINICAL VETERINARIAN Gender Identity Female 04/06/2017 8:58 AM CLINICAL VETERINARIAN Sexual Orientation Straight 04/06/2017 8: 58 AM CLINICAL VETERINARIAN documented as of this encounter Medications at [...] 3 1 blood-glucose meter,continuous (FreeStyle [place] 3 [place]) 1 each (1 Device total) as directed. [...] retention). 90 tablet 3 4 HYDROcodone-aceta minophen (Kenvil) 5-325 mg per tabletIndications :Chronic Pain/Nonacute Pain [...] under the skin. 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 30 tablet 3 4 09/13/19 25 documented as of this encounter Plan of Treatment Upcoming Encounters Date Type Department Care Team (Late st Contact Info) Description 09/14/2024 11:00 AM CDT Admin Visit Department of Oncology in [place], [place] [address] [place] [address] 09/17/2024 8:00 AM CDT Lab Department of Infusion Therapy in [place], [place] [address] [place] [address] Jenny Vaca M.D. [address] [place] [phone] 09/17/2024 1:30 PM CDT Office Visit Department of Internal Medicine in [place], [place] [address], [place] [phone] Elissa Luo P.A.-C., M.S. [address], [place] [address] 09/18/2024 8:00 AM CDT Clinical Support Department of Oncology in [place], [place] [address] [place] [phone] Blossom Hernandez M.S.W., L.I.C.S.W. [address] [place] [phone] 09/20/2024 10:00 AM CDT Telemedicine Department of Oncology in [place], [place] [address] [place] [phone] Kerrie Vela M.B., B.ChForeign, M.D. [address] [place] [phone] 09/24/2024 8:30 AM CDT Lab Department of Oncology in [address] [phone] Kerrie Vela M.B., B.Ch., M.D. [address] [place] [phone] 09/24/2024 9:40 AM CDT Office Visit Department of Oncology in [place], [place] [address] [place] [phone] Kerrie Vela M.B., B.Ch., M.D. [address] [place] [phone] 09/24/2024 10:20 AM CDT Education Department of Oncology in [address] [place] [address] Kerrie Vela M.B., Trevor, M.DForeign [address] [place] [phone] 09/24/2024 11:30 AM CDT Appointment [facility], [facility], [facility] [address] [place] [address] Kerrie Vela M.B., Trevor, M.DForeign [address] [place] [phone] 09/25/2024 8:30 AM CDT Appointment [facility], [facility], [facility], [facility] [address] [place] [address] Kerrie Vela M.B., Trevor, M.DForeign [address] [place] [phone] 09/26/2024 8:30 AM CDT Appointment [facility], [facility], [address] [phone] Kerrie Vela M.B., BDuran, M.DForeign [address] [place] [phone] 09/28/2024 11:45 AM CDT Lab Department of Oncology in [place], [place] [address] [place] [phone] Kerrie Vela M.B., Trevor, M.DForeign [address] [place] [phone] 09/28/2024 1:40 PM CDT Office Visit Department of Oncology in [place], [place] [address] [place] [phone] Dawood Ruiz P.A.-C. [address] [place] [phone] 10/01/2024 8:00 AM CDT Appointment [facility], [facility], [facility] [address] [place] [phone] Kerrie Vela M.B., B.ChForeign, M.DForeign [address] [place] [phone] 10/02/2024 8:00 AM CDT Appointment [facility], [facility], [facility] [address] [place] [phone] Kerrie Vela M.B., BForeignChForeign, M.DForeign [address] [place] [phone] 10/03/2024 8:00 AM CDT Appointment [facility], [facility], [facility] [address] [place] [phone] Kerrie Vela M.B., B.Ch., M.DForeign [address] [place] [phone] 10/10/2024 6:30 AM CDT Lab Department of Oncology in [place], [place] [address] [place] [phone] Kerrie Vela M.B., B.Ch., M.D. [address] [place] [phone] 10/10/2024 8:20 AM CDT Office Visit Department of Oncology in [place], [place] [address] [place] [phone] Brittney Stuart M.D. [address] [place] [phone] 10/10/2024 12:30 PM CDT Infusion Department of Oncology in [place], [place] [address] [place] [address] Kerrie Vela M.B., B.ChForeign, M.DForeign [address] [place] [phone] 10/12/2024 11:20 AM CDT Office Visit Department of Oncology in [place], [place] [address] [place] [phone] Kerrie Vela M.B., B.ChForeign, M.DForeign [address] [place] [phone] 10/17/2024 1:00 PM CDT Office Visit Department of Ophthalmology in [place], [place] [address] [place] [phone] Tomás Mcbride M.D. [address], [place] [phone] 10/23/2024 8:45 AM CDT Lab Department of Oncology in [place], [place] [address] [place] [phone] Kerrie Vela M.B., B.ChForeign, M.D. [address] [place] [phone] 10/23/2024 11:00 AM CDT Office Visit Department of Oncology in [place], [place] [address] [place] [address] Kerrie Vela M.B., B.ChForeign, M.DForeign [address] [place] [phone] 10/23/2024 11:30 AM CDT Appointment Department of Radiology in [place], [place] [address] [place] [address] Franny Dutta M.D. [address] [place] [phone] 10/24/2024 7:30 AM CDT Infusion Department of Oncology in [place], [place] [address] [place] [phone] Kerrie Vela M.B., B.ChForeign, M.DForeign [address] [place] [phone] 10/24/2024 11:00 AM CDT Appointment Department of Radiation Oncology in [place], [place] [address] [place] [phone] Franny Dutta M.D. [address] [place] [phone] 10/25/2024 11:00 AM CDT Office Visit Department of Oncology in [place], [place] [address] [place] [phone] Kerrie Vela M.B., B.ChForeign, M.DForeign [address] [place] [phone] 11/06/2024 7:00 AM CDT Lab Department of Oncology in [place], [place] [address] [place] [phone] Kerrie Vela M.B., B.ChForeign, M.DForeign [address] [place] [phone] 11/06/2024 9:00 AM CDT Office Visit Department of Oncology in [place], [place] [address] [place] [address] Dawood Ruiz P.A.-CForeign [address] [place] [phone] 11/06/2024 10:00 AM CDT Infusion Department of Oncology in [place], [place] [address] [place] [address] Kerrie Vela M.B., B.ChForeign, M.D. [address] [place] [phone] 11/20/2024 6:30 AM CDT Lab Department of Laboratory Medicine and Pathology, [facility] in [place], [place] [address] [place] [address] Kerrie Vela M.B., B.ChForeign, M.D. [address] [place] [phone] 11/20/2024 8:20 AM CDT Office Visit Department of Oncology in [place], [place] [address] [place] [address] Dawood Ruiz P.A.-Ashleigh [address] [place] [phone] 11/20/2024 9:00 AM CDT Infusion Department of Oncology in [place], [place] [address] [place] [phone] Kerrie Vela M.B., B.ChForeign, M.D. [address] [place] [phone] 12/04/2024 8:30 AM CDT Lab Department of Laboratory Medicine and Pathology, [facility] in [place], [place] [address] [place] [address] Kerrie Vela M.B., Trevor, Alin [address] [place] [phone] 12/04/2024 10:20 AM CDT Office Visit Department of Oncology in [place], [place] [address] [place] [phone] Kerrie Vela M.B., Trevor, Alin [address] [place] [phone] 12/04/2024 11:00 AM CDT Infusion Department of Oncology in [place], [place] [address] [place] [phone] Kerrie Vela M.B., Trevor, Alin [address] [place] [phone] documented as of this encounter Procedures Procedure Name Priority Date/Time Associated Diagnosis Comments MR BRAIN WITHOUT AND WITH IV CONTRAST RAD - Routine (most inpatients and all outpatients) 07/30/2024 10:29 AM CLINICAL VETERINARIAN Secondary Malignant Neoplasm Brain (HCC) documented in this encounter Results * MR Brain without and with IV Contrast (07/30/2024 10:29 AM CLINICAL VETERINARIAN) Anatomical Region Laterality Modality Head, Brain, Neuroradiology [facility], Neuroradiology [facility], Neuroradiology [facility] N/A Magnetic Resonance Impressions 07/30/2024 11:24 AM CLINICAL VETERINARIAN 1. Near complete resolution of the treated enhancing lesion in the left gyrus rectus. 2. New enhancing lesion in the superior left cerebellar hemisphere with associated diffusion restriction. Differential considerations include a new metastasis, less likely subacute infarct. Consider follow-up brain MRI in 4-6 weeks to evaluate for interval change/resolution of the enhancement. Narrative 07/30/2024 11:24 AM CLINICAL VETERINARIAN EXAM: MR BRAIN WITHOUT AND WITH IV CONTRAST COMPARISON:06/11/2024 FINDINGS: Near-complete resolution of the previously seen enhancing lesion along the posterior left gyrus rectus with punctate residual enhancement noted on series 13 image 55. New enhancing lesion in the superior left cerebellar hemisphere with associated diffusion restriction measuring 0.8 cm x 0.6 cm on series 13 image 46. Moderate T2/FLAIR hyperintensity throughout the white matter is nonspecific but likely sequela of senescent small vessel disease. Bilateral ocular lens replacements. T1 hyperintense lesion in the left occipital bone is consistent with a hemangioma. Procedure Note Zion Matthews M.D. - 07/30/2024 EXAM: MR BRAIN WITHOUT AND WITH IV CONTRAST COMPARISON:06/11/2024 FINDINGS: Near-complete resolution of the previously seen enhancing lesion along theposterior left gyrus rectus with punctate residual enhancement noted onseries 13 image 55. New enhancing lesion in the superior left cerebellar hemisphere withassociated diffusion restriction measuring 0.8 cm x 0.6 cm on series 13image 46. Moderate T2/FLAIR hyperintensity throughout the white matter isnonspecific but likely sequela of senescent small vessel disease.Bilateral ocular lens replacements. T1 hyperintense lesion in the leftoccipital bone is consistent with a hemangioma. IMPRESSION: 1. Near complete resolution of the treated enhancing lesion in the leftgyrus rectus. 2. New enhancing lesion in the superior left cerebellar hemisphere withassociated diffusion restriction. Differential considerations include anew metastasis, less likely subacute infarct. Consider follow-up brain MRIin 4-6 weeks to evaluate for interval change/resolution of the enhancement. Franny Dutta M.D. [facility] MRI PROCEDURES Final Result documented in this encounter Visit Diagnoses Diagnosis Secondary Malignant Neoplasm Brain (HCC) documented in this encounter Administered Medications Inactive Administered Medications - up to 3 most recent administrations Medication Order MAR Action Action Date Dose Rate Site gadobutrol injection 1-14 mL (Gadavist) 1-14 mL, intravenous, Once in imaging, contrast, Starting on Tue07/30/24 at 1010, For 1 dose, Dose per Radiant Medication Guidelines Intrathecal doses greater than 0.25 mL not recommended. Given 07/30/2024 10:16 AM CLINICAL VETERINARIAN 6 mL sodium chloride 0.9 % injection 1-250 mL 1-250 mL, intravenous, Once in imaging, line care, Starting on Tue07/30/24 at 1010, For 1 dose Given 07/30/2024 10:16 AM CLINICAL VETERINARIAN 10 mL documented in this encounter Additional Health Concerns Infection Onset Date Last Indicated Resolved Time Protective Environment 07/05/2024 07/05/202409/02 6:26 AM CDT Assessment Noted Time PHQ-9 Depression Total Score: 0 07/04/19 9:20 AM CLINICAL VETERINARIAN documented as of this encounter Care Teams Associate Attorney Relationship Specialty Start Date End Date Jenny Vaca M.D. [address] [place] [address] PCP - General 11/11/16 documented as of this encounter
--- OUTSIDE RECORDS SUMMARY | 2024-09-13 12:42 | XMS_ITS | Encounter Summary ---
Author Organization [facility] Address [address] [place] [address] Care Team Providers Care Software Support Specialist Name Role Phone Jenny Vaca M.D. Primary Care Provider [phone] Encounter Details Date Type Department Care Team (Late st Contact Info) Description 08/31/2024 Referral Triage Department of Oncology in [place], [place] [address] [place] [phone] Dawood Ruiz PForeignAShannon. [address] [place] [phone] Social History Tobacco Use Types Packs/Day Years Used Date Smoking Tobacco: Every Day Cigarettes 0.5 60 Passive Smoke Exposure: Current Smokeless Tobacco: Never Alcohol Use Standard Drinks/Week Comments Yes 1 (1 standard drink = 0.6 oz pur e alcohol) 1 beer per night [facility] Utilities Answer Date Recorded In the past 12 months has e [employer], gas, oil, or water [employer] threatened to shut off services in your [...] How often do you attend chur or religion services? More than 4 times per year 09/27/2022 Do you belong to any clubs o r organizations such as roman catholic groups, unions, fraternal or athletic groups, or [...] Date Recorded PHQ-2 Score 0 06/18/2024 [facility] [place] of Occupat ional Health - Occupational Stress [...] your living situation today? I have a [facility] place to live 07/08/2023 Comments No Sex and Gender Information Value Date Recorded Sex Assigned at Not on file Legal Sex Female 8:27 AM PYTHON PROGRAMMER Gender Identity Female 04/06/2017 8:58 AM PYTHON PROGRAMMER Sexual Orientation Straight 04/06/2017 8: 58 AM PYTHON PROGRAMMER documented as of this encounter Plan of Treatment Upcoming Encounters Date Type Department Care Team (Late st Contact Info) Description 09/14/2024 11:00 AM CDT Admin Visit Department of Oncology in [place], [place] [address] [place] [address] 09/17/2024 8:00 AM CDT Lab Department of Infusion Therapy in [place], [place] [address] [place] [address] Jenny Vaca M.D. [address] [place] [phone] 09/17/2024 1:30 PM CDT Office Visit Department of Internal Medicine in [place], [place] [address] [place] [address] Elissa Luo P.A.-C., M.S. [address] [place] [address] 09/18/2024 8:00 AM CDT Clinical Support Department of Oncology in [place], [place] [address] [place] [phone] Blossom Hernandez, M.S.W., L.I.C.S.W. [address] [place] [phone] 09/20/2024 10:00 AM CDT Telemedicine Department of Oncology in [place], [place] [address] [place] [phone] Kerrie Vela M.B., B.Ch., M.D. [address] [place] [phone] 09/24/2024 8:30 AM CDT Lab Department of Oncology in [place], [place] [address] [place] [phone] Kerrie Vela M.B., B.Ch., M.D. [address] [place] [phone] 09/24/2024 9:40 AM CDT Office Visit Department of Oncology in [place], [place] [address] [place] [address] Kerrie Vela M.B., B.Ch., M.D. [address] [place] [phone] 09/24/2024 10:20 AM CDT Education Department of Oncology in [place], [place] [address] [place] [phone] Kerrie Vela M.B., BDuran, M.Cecelia [address] [place] [phone] 09/24/2024 11:30 AM CDT Appointment [facility], [facility], [facility] [address] [place] [phone] Kerrie Vela M.B., Trevor, M.Cecelia [address] [place] [phone] 09/25/2024 8:30 AM CDT Appointment [facility], [facility], [facility] Level [address] [place] [phone] Kerrie Vela M.B., BDuran, M.DForeign [address] [place] [phone] 09/26/2024 8:30 AM CDT Appointment [facility], [facility], [facility] Level [address] [place] [phone] Kerrie Vela M.B., B.ChForeign, M.DForeign [address] [place] [phone] 09/28/2024 11:45 AM CDT Lab Department of Oncology in [place], [place] [address] [place] [phone] Kerrie Vela M.B., B.ChForeign, M.DForeign [address] [place] [phone] 09/28/2024 1:40 PM CDT Office Visit Department of Oncology in [place], [place] [address] [place] [phone] Dawood Ruiz P.A.-C. [address] [place] [phone] 10/01/2024 8:00 AM CDT Appointment [facility], [facility], [facility] [address] [place] [phone] Kerrie Vela M.B., BDuran, M.DForeign [address] [place] [phone] 10/02/2024 8:00 AM CDT Appointment [facility], [facility], [facility] [address] [place] [phone] Kerrie Vela M.B., B., M.DForeign [address] [place] [phone] 10/03/2024 8:00 AM CDT Appointment [facility], [facility], [facility] [address] [place] [phone] Kerrie Vela M.B., B.ChForeign, M.DForeign [address] [place] [phone] 10/10/2024 6:30 AM CDT Lab Department of Oncology in [place], [place] [address] [place] [phone] Kerrie Vela M.B., B.ChForeign, M.DForeign [address] [place] [phone] 10/10/2024 8:20 AM CDT Office Visit Department of Oncology in [place], [place] [address] [place] [phone] Brittney Stuart M.D. [address] [place] [phone] 10/10/2024 12:30 PM CDT Infusion Department of Oncology in [place], [place] [address] [place] [phone] Kerrie Vela M.B., B.Ch., M.D. [address] [place] [phone] 10/12/2024 11:20 AM CDT Office Visit Department of Oncology in [place], [place] [address] [place] [phone] Kerrie Vela M.B., B.Ch., M.D. [address] [place] [phone] 10/17/2024 1:00 PM CDT Office Visit Department of Ophthalmology in [place], [place] [address] [place] [phone] Tomás Mcbride M.D. [address] [place] [phone] 10/23/2024 8:45 AM CDT Lab Department of Oncology in [place], [place] [address] [place] [phone] Kerrie Vela M.B., B.Ch., M.D. [address] [place] [phone] 10/23/2024 11:00 AM CDT Office Visit Department of Oncology in [place], [place] [address] [place] [address] Kerrie Vela M.B., BDuran, MPhuc [address] [place] [phone] 10/23/2024 11:30 AM CDT Appointment Department of Radiology in [place], [place] [address] [place] [phone] Franny Dutta M.D. [address] [place] [phone] 10/24/2024 7:30 AM CDT Infusion Department of Oncology in [place], [place] [address] [place] [address] Kerrie Vela M.B., BDuran, MPhuc [address] [place] [phone] 10/24/2024 11:00 AM CDT Appointment Department of Radiation Oncology in [place], [place] [address] [place] [phone] Franny Dutta M.D. [address] [place] [phone] 10/25/2024 11:00 AM CDT Office Visit Department of Oncology in [place], [place] [address] [place] [phone] Kerrie Vela M.B., B., M.DForeign [address] [place] [phone] 11/06/2024 7:00 AM CDT Lab Department of Oncology in [place], [place] [address] [place] [address] Kerrie Vela M.B., B.ChForeign, M.DForeign [address] [place] [phone] 11/06/2024 9:00 AM CDT Office Visit Department of Oncology in [place], [place] [address] [place] [address] Dawood Ruiz, P.A.-CForeign [address] [place] [phone] 11/06/2024 10:00 AM CDT Infusion Department of Oncology in [place], [place] [address] [place] [phone] Kerrie Vela M.B., B.ChForeign, M.DForeign [address] [place] [phone] 11/20/2024 6:30 AM CDT Lab Department of Laboratory Medicine and Pathology, [facility] in [place], [place] [address] [place] [phone] Kerrie Vela M.B., B.Ch., M.DForeign [address] [place] [phone] 11/20/2024 8:20 AM CDT Office Visit Department of Oncology in [place], [place] [address] [place] [phone] Dawood Ruiz, P.A.-CForeign [address] [place] [phone] 11/20/2024 9:00 AM CDT Infusion Department of Oncology in [place], [place] [address] [place] [phone] Kerrie Vela M.B., B.ChForeign, M.DForeign [address] [place] [phone] 12/04/2024 8:30 AM CDT Lab Department of Laboratory Medicine and Pathology, [facility], in [place], [place] [address] [place] [phone] Kerrie Vela M.B., B.Ch., M.D. [address] [place] [phone] 12/04/2024 10:20 AM CDT Office Visit Department of Oncology in [place], [place] [address] [place] [phone] Kerrie Vela M.B., B.Ch., M.D. [address] [place] [phone] 12/04/2024 11:00 AM CDT Infusion Department of Oncology in [place], [place] [address] [place] [phone] Kerrie Vela M.B., B.Ch., M.D. [address] [place] [phone] documented as of this encounter Visit Diagnoses Not on filedocumented in this encounter Additional Health Concerns Infection Onset Date Last Indicated Resolved Time Protective Environment 07/05/2024 07/05/202409/02 6:26 AM CDT Assessment Noted Time PHQ-9 Depression Total Score: 0 07/04/19 9:20 AM PYTHON PROGRAMMER documented as of this encounter Care Teams Software Support Specialist Relationship Specialty Start Date End Date Jenny Vaca M.D. [address] [phone] PCP - General 11/11/16 documented as of this encounter
--- OUTSIDE RECORDS SUMMARY | 2024-09-13 12:42 | XMS_ITS | Encounter Summary ---
Author Organization [facility] Address [address] [place] [address] Care Team Providers Care Renal Technician Name Role Phone Jenny Vaca M.D. Primary Care Provider [phone]- [phone] Reason for Visit * Reason Onset Date Comments Med Refill 07/23/2024 Encounter Details Date Type Department Care Team (Late st Contact Info) Description 07/23/2024 Refill Department of Ophthalmology in [place], [place] [address] [place] [phone] Tomás Mcbride M.D. [address], [place] [address] Med Refill Social History Tobacco Use Types Packs/Day Years Used Date Smoking Tobacco: Every Day Cigarettes 0.5 60 Passive Smoke Exposure: Current Smokeless Tobacco: Never Alcohol Use Standard Drinks/Week Comments Yes 1 (1 standard drink = 0.6 oz pur e alcohol) 1 beer per night [facility] Utilities Answer Date Recorded In the past 12 months has e electric, gas, oil, or water [employer] threatened to shut off services in your [...] How often do you attend chur or zoroastrian services? More than 4 times per year 09/27/2022 Do you belong to any clubs o r organizations such as christian groups, unions, fraternal or athletic groups, or [...] Answer Date Recorded PHQ-2 Score 0 06/18/2024 [facility] [place] of Occupat ional Health - Occupational Stress [...] your living situation today? I have a [facility] place to live 07/08/2023 Comments No Sex and Gender Information Value Date Recorded Sex Assigned at Not on file Legal Sex Female 8:27 AM STORYBOARD ARTIST Gender Identity Female 04/06/2017 8:58 AM STORYBOARD ARTIST Sexual Orientation Straight 04/06/2017 8: 58 AM STORYBOARD ARTIST documented as of this encounter Plan of Treatment Upcoming Encounters Date Type Department Care Team (Late st Contact Info) Description 09/14/2024 11:00 AM CDT Admin Visit Department of Oncology in [place], [place] [address] [place] [address] 09/17/2024 8:00 AM CDT Lab Department of Infusion Therapy in [place], [place] [address] [place] [phone] Jenny Vaca M.D. [address] [phone] 09/17/2024 1:30 PM CDT Office Visit Department of Internal Medicine in [place], [place] [address] [phone] Elissa Luo P.A.-C., M.S. [address] [phone] 09/18/2024 8:00 AM CDT Clinical Support Department of Oncology in [address] [phone] Blossom Hernandez M.S.W., L.I.C.S.W. [address] [place] [phone] 09/20/2024 10:00 AM CDT Telemedicine Department of Oncology in [address] [phone] Kerrie Vela M.B., B.Ch., M.D. [address] [place] [address] 09/24/2024 8:30 AM CDT Lab Department of Oncology in [address] [address] Kerrie Vela M.B., B.Ch., M.D. [address] [place] [phone] 09/24/2024 9:40 AM CDT Office Visit Department of Oncology in [address] [address] Kerrie Vela M.B., Trevor, MPhuc [address] [place] [phone] 09/24/2024 10:20 AM CDT Education Department of Oncology in [place], [place] [address] [place] [phone] Kerrie Vela M.B., Trevor, MPhuc [address] [place] [address] 09/24/2024 11:30 AM CDT Appointment [facility], [facility], [facility] [address] [place] [phone] Kerrie Vela M.B., Trevor, M.DForeign [address] [place] [phone] 09/25/2024 8:30 AM CDT Appointment [facility], [facility], [facility] [address] [place] [phone] Kerrie Vela M.B., Trevor, M.DForeign [address] [place] [phone] 09/26/2024 8:30 AM CDT Appointment [facility], [facility], [facility] [address] [place] [phone] Kerrie Vela M.B., Trevor, M.DForeign [address] [place] [phone] 09/28/2024 11:45 AM CDT Lab Department of Oncology in [place], [place] [address] [place] [phone] Kerrie Vela M.B., BForeignChForeign, M.DForeign [address] [place] [phone] 09/28/2024 1:40 PM CDT Office Visit Department of Oncology in [place], [place] [address] [place] [phone] aDwood Ruiz P.A.-C. [address] [place] [phone] 10/01/2024 8:00 AM CDT Appointment [facility] [address] [place] [phone] Kerrie Vela M.B., BForeignChForeign, M.DForeign [address] [place] [phone] 10/02/2024 8:00 AM CDT Appointment [facility], [facility], [facility] [address] [place] [phone] Kerrie Vela M.B., BForeignChForeign, M.DForeign [address] [place] [address] 10/03/2024 8:00 AM CDT Appointment [facility], [facility], [facility] [address] [place] [phone] Kerrie Vela M.B., B.ChForeign, M.DForeign [address] [place] [phone] 10/10/2024 6:30 AM CDT Lab Department of Oncology in [place], [place] [address] [place] [phone] Kerrie Vela M.B., BForeignChForeign, M.DForeign [address] [place] [phone] 10/10/2024 8:20 AM CDT Office Visit Department of Oncology in [place], [place] [address] [place] [phone] Brittney Stuart M.D. [address] [place] [address] 10/10/2024 12:30 PM CDT Infusion Department of Oncology in [place], [place] [address] [place] [phone] Kerrie Vela M.B., B., M.DForeign [address] [place] [address] 10/12/2024 11:20 AM CDT Office Visit Department of Oncology in [place], [place] [address] [place] [phone] Kerrie Vela M.B., B.ChForeign, M.D. [address] [place] [phone] 10/17/2024 1:00 PM CDT Office Visit Department of Ophthalmology in [place], [place] [address] [place] [phone] Tomás Mcbride M.D. [address] [place] [phone] 10/23/2024 8:45 AM CDT Lab Department of Oncology in [place], [place] [address] [place] [phone] Kerrie Vela M.B., B.ChForeign, M.DForeign [address] [place] [phone] 10/23/2024 11:00 AM CDT Office Visit Department of Oncology in [place], [place] [address] [place] [phone] Kerrie Vela M.B., BDuran, M.DForeign [address] [place] [address] 10/23/2024 11:30 AM CDT Appointment Department of Radiology in [place], [place] [address] [place] [address] Franny Dutta M.D. [address] [place] [phone] 10/24/2024 7:30 AM CDT Infusion Department of Oncology in [place], [place] [address] [place] [phone] Kerrie Vela M.B., BDuran, MForeignDForeign [address] [place] [phone] 10/24/2024 11:00 AM CDT Appointment Department of Radiation Oncology in [place], [place] [address] [place] [phone] Franny Dutta M.D. [address] [place] [phone] 10/25/2024 11:00 AM CDT Office Visit Department of Oncology in [place], [place] [address] [place] [phone] Kerrie Vela M.B., B., M.D. [address] [place] [address] 11/06/2024 7:00 AM CDT Lab Department of Oncology in [place], [place] [address] [place] [phone] Kerrie Vela M.B., BDuran, M.DForeign [address] [place] [phone] 11/06/2024 9:00 AM CDT Office Visit Department of Oncology in [place], [place] [address] [place] [phone] Dawood Ruiz, P.A.-CForeign [address] [place] [phone] 11/06/2024 10:00 AM CDT Infusion Department of Oncology in [place], [place] [address] [place] [phone] Kerrie Vela M.B., BDuran, M.Cecelia [address] [place] [address] 11/20/2024 6:30 AM CDT Lab Department of Laboratory Medicine and Pathology, [facility] in [place], [place] [address] [place] [phone] Kerrie Vela M.B., B., M.DForeign [address] [place] [address] 11/20/2024 8:20 AM CDT Office Visit Department of Oncology in [place], [place] [address] [place] [phone] Dawood Ruiz, P.A.-CForeign [address] [place] [phone] 11/20/2024 9:00 AM CDT Infusion Department of Oncology in [place], [place] [address] [place] [phone] Kerrie Vela M.B., B., M.DForeign [address] [place] [address] 12/04/2024 8:30 AM CDT Lab Department of Laboratory Medicine and Pathology, [facility], in [place], [place] [address] [place] [address] Kerrie Vela M.B., BDuran, M.DForeign [address] [place] [address] 12/04/2024 10:20 AM CDT Office Visit Department of Oncology in [place], [place] [address] [place] [phone] Kerrie Vela M.B., Trevor, MPhuc [address] [place] [address] 12/04/2024 11:00 AM CDT Infusion Department of Oncology in [place], [place] [address] [place] [address] Kerrie Vela M.B., BDuran, M.DForeign [address] [place] [phone] documented as of this encounter Visit Diagnoses Not on filedocumented in this encounter Additional Health Concerns Infection Onset Date Last Indicated Resolved Time Protective Environment 07/05/2024 07/05/202409/02 6:26 AM CDT Assessment Noted Time PHQ-9 Depression Total Score: 0 07/04/19 24 9:20 AM STORYBOARD ARTIST documented as of this encounter Care Teams Renal Technician Relationship Specialty Start Date End Date Jenny Vaca M.D. [address] [phone] PCP - General 11/11/16 documented as of this encounter
--- OUTSIDE RECORDS SUMMARY | 2024-09-13 12:42 | XMS_ITS | Encounter Summary ---
Author Organization [facility] Address [address] [place] [address] Care Team Providers Care Flat Folder Name Role Phone Jenny Vaca M.D. Primary Care Provider [phone] Encounter Details Date Type Department Care Team (Late st Contact Info) Description 12/12/2015 Historical Ophthalmology RST OPH Richard Wright M.D., M.S. [address] [place] [address] Social History Tobacco Use Types Packs/Day Years Used Date Smoking Tobacco: Never Assessed Comments Unknown Sex and Gender Information Value Date Recorded Sex Assigned at Not on file Legal Sex Female 8:27 AM SPRAY PAINTER HELPER Gender Identity Female 04/06/2017 8:58 AM SPRAY PAINTER HELPER Sexual Orientation Straight 04/06/2017 8: 58 AM SPRAY PAINTER HELPER documented as of this encounter Progress Notes * Richard Wright M.D. - 12/12/2015 7:44 AM CDT Eye General CHIEF COMPLAINT Follow up Steroid induced glaucoma HISTORY OF PRESENT ILLNESS 70 year old female here for a follow up regarding Steroid induced glaucoma. The patient notes that her vision has declined since last visit. Blurred vision; both eyes; x several months; slowly progressive; symptoms are moderate. Denies flashes of light and floaters. IMPRESSION / REPORT / PLAN #1 Steroid induced glaucoma By history, her first elevated pressures were after starting topical steroid. 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 (CE was 09/15/07) 02/2010 labs: wnl/neg AARON, RF, CRP, MPO, PR3, GETACHEW, Bartonella abs, Peg HUSAM, quantiferon, Syphilis IgG and IgM, Toxoplasma IgG/M, ESR. CBC showed mild normocytic anemia. chest CT scan showed old granuloma, airway changes. 03/2010 AC tap OS: negative cx, fungal smear, gram stain, PCR for HSV, VZV Right developed after corneal abrasion which occurred during tonometry at 02/2010 visit. No cell noted on exam until trace cell OU noted 02/2011 (right was still phakic) WMS 12/12/15: Planning to go away next week for two - three months. She increased prednisolone back to BID shortly after last visit because her vision started to get worse again and she was away. She says her vision didn't get back to normal until this week. No way to know if the uveitis was increased without an exam, and I really would advise a slit lamp exam BEFORE steroid gtts are increased in the future However, since she will be in [place], we can just continue prednisolone at BID for now and reassesswhen she returns in 2-3 months I can serve as the glaucoma team since I need to see her anyway tentatively schedule f/u with WMS in late January, she can call to move the appt if she will not be back until later. (KENDRICK will be due 1-2 months later) #3 Proliferative diabetic retinopathy, both eyes hx rubeosis left, left eye s/p PPV left eye in 05/2009 s/p vitrectomy both eyes, s/p prp both eyes hx anti-VEGF both eyes #4 Pseudophakic, both eyes 09/15/07 - left ?late 2010 or 2011 - right (Dr. Elliott) 17 Jul 2015 UBM both eyes: IOL appears centered both eyes, haptics within the superonasal and inferotemporal capsule both eyes, residual lens remnants within the capsule both eyes, portion of the anterior capsule appears missing from ~ 9:00 through 10:00 right eye. 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 [address] [phone] 09/17/2024 1:30 PM CDT Office Visit Department of Internal Medicine in [place], [place] [address] [phone] Elissa Luo P.A.-Hesham., M.S. [address] [phone] 09/18/2024 8:00 AM CDT Clinical Support Department of Oncology in [place], [place] [address] [place] [phone] Blossom Hernandez M.S.[place]., L.I.C.S.W. [address] [place] [phone] 09/20/2024 10:00 AM CDT Telemedicine Department of Oncology in [place], [place] [address] [place] [phone] Kerrie Vela M.B., B.Ch., M.D. [address] [place] [phone] 09/24/2024 8:30 AM CDT Lab Department of Oncology in [place], [place] [address] [place] [phone] Kerrie Vela M.B., B.Ch., M.D. [address] [place] [phone] 09/24/2024 9:40 AM CDT Office Visit Department of Oncology in [address] [phone] Kerrie Vela M.B., B.Ch., M.D. [address] [place] [phone] 09/24/2024 10:20 AM CDT Education Department of Oncology in [address] [phone] Kerrie Vela M.B., B.Ch., M.D. [address] [place] [phone] 09/24/2024 11:30 AM CDT Appointment [facility], [facility], [facility] [address] [place] [phone] Kerrie Vela M.B., Trevor, MForeignDForeign [address] [place] [phone] 09/25/2024 8:30 AM CDT Appointment [facility], [facility], [facility] [address] [place] [phone] Kerrie Vela M.B., Trevor, MPhuc [address] [place] [phone] 09/26/2024 8:30 AM CDT Appointment [facility], [facility], [address] [phone] Kerrie Vela M.B., BDuran, MForeignDForeign [address] [place] [phone] 09/28/2024 11:45 AM CDT Lab Department of Oncology in [address] [phone] Kerrie Vela M.B., B.ChForeign, M.DForeign [address] [place] [phone] 09/28/2024 1:40 PM CDT Office Visit Department of Oncology in [place], [place] [address] [place] [phone] Dawood Ruiz P.A.-C. [address] [place] [phone] 10/01/2024 8:00 AM CDT Appointment [facility], [facility], [facility] [address] [place] [address] Kerrie Vela M.B., Trevor, MPhuc [address] [place] [phone] 10/02/2024 8:00 AM CDT Appointment [facility], [facility], [facility] [address] [place] [address] Kerrie Vela M.B., Trevor, MPhuc [address] [place] [phone] 10/03/2024 8:00 AM CDT Appointment [facility], [facility], [facility] [address] [place] [address] Kerrie Vela M.B., Trevor, M.DForeign [address] [place] [phone] 10/10/2024 6:30 AM CDT Lab Department of Oncology in [place], [place] [address] [place] [phone] Kerrie Vela M.B., B., M.DForeign [address] [place] [phone] 10/10/2024 8:20 AM CDT Office Visit Department of Oncology in [place], [place] [address] [place] [phone] Brittney Stuart M.D. [address] [place] [phone] 10/10/2024 12:30 PM CDT Infusion Department of Oncology in [place], [place] [address] [place] [phone] Kerrie Vela M.B., B.ChForeign, M.D. [address] [place] [phone] 10/12/2024 11:20 AM CDT Office Visit Department of Oncology in [place], [place] [address] [place] [phone] Kerrie Vela M.B., B.ChForeign, M.D. [address] [place] [phone] 10/17/2024 1:00 PM CDT Office Visit Department of Ophthalmology in [place], [place] [address] [place] [phone] Tomás Mcbride M.D. [address] [place] [address] 10/23/2024 8:45 AM CDT Lab Department of Oncology in [place], [place] [address] [place] [phone] Kerrie Vela M.B., B.Ch., M.D. [address] [place] [phone] 10/23/2024 11:00 AM CDT Office Visit Department of Oncology in [place], [place] [address] [place] [phone] Kerrie Vela M.B., B.Ch., M.D. [address] [place] [phone] 10/23/2024 11:30 AM CDT Appointment Department of Radiology in [place], [place] [address] [place] [address] Franny Dutta M.D. [address] [place] [phone] 10/24/2024 7:30 AM CDT Infusion Department of Oncology in [place], [place] [address] [place] [phone] Kerrie Vela M.B., BDuran, MPhuc [address] [place] [phone] 10/24/2024 11:00 AM CDT Appointment Department of Radiation Oncology in [place], [place] [address] [place] [address] Franny Dutta M.D. [address] [place] [phone] 10/25/2024 11:00 AM CDT Office Visit Department of Oncology in [place], [place] [address] [place] [phone] Kerrie Vela M.B., B.ChForeign, M.DForeign [address] [place] [phone] 11/06/2024 7:00 AM CDT Lab Department of Oncology in [place], [place] [address] [place] [phone] Kerrie Vela M.B., B.ChForeign, M.DForeign [address] [place] [phone] 11/06/2024 9:00 AM CDT Office Visit Department of Oncology in [place], [place] [address] [place] [phone] Dawood Ruiz P.A.-C. [address] [place] [phone] 11/06/2024 10:00 AM CDT Infusion Department of Oncology in [place], [place] [address] [place] [phone] Kerrie Vela M.B., BDuran, M.DForeign [address] [place] [phone] 11/20/2024 6:30 AM CDT Lab Department of Laboratory Medicine and Pathology, [facility] in [place], [place] [address] [place] [phone] Kerrie Vela M.B., BDuran, M.DForeign [address] [place] [phone] 11/20/2024 8:20 AM CDT Office Visit Department of Oncology in [place], [place] [address] [place] [phone] Dawood Ruiz P.A.-C. [address] [place] [phone] 11/20/2024 9:00 AM CDT Infusion Department of Oncology in [place], [place] [address] [place] [phone] Kerrie Vela M.B., B.ChForeign, M.DForeign [address] [place] [phone] 12/04/2024 8:30 AM CDT Lab Department of Laboratory Medicine and Pathology, [facility] in [place], [place] [address] [place] [phone] Kerrie Vela M.B., B., M.D. [address] [place] [phone] 12/04/2024 10:20 AM CDT Office Visit Department of Oncology in [place], [place] [address] [place] [phone] Kerrie Vela M.B., BDuran, MPhuc [address] [place] [address] 12/04/2024 11:00 AM CDT Infusion Department of Oncology in [place], [place] [address] [place] [address] Kerrie Vela M.B., Trevor, Alin [address] [place] [phone] documented as of this encounter Visit Diagnoses Not on filedocumented in this encounter Additional Health Concerns Infection Onset Date Last Indicated Resolved Time COVID19 Pending 09/25/2019 09/25/2019 09/26/2019 1 :51 AM CDT COVID19 Pending 11/08/2019 11/08/2019 11/09/2019 1 :40 AM CDT COVID19 Pending 12/20/2019 12/20/2019 12/21/2019 1 1:51 AM CDT Protective Environment 02/21/2023 02/21/202305/08 5:44 AM SPRAY PAINTER HELPER Protective Environment 05/11/2023 05/11/202306/13 6:17 AM SPRAY PAINTER HELPER Protective Environment 06/27/2023 06/27/202310/15 5:30 AM CDT Protective Environment 10/28/2023 10/28/202306/25 5:58 AM SPRAY PAINTER HELPER Protective Environment 07/05/2024 07/05/202409/02 6:26 AM CDT Assessment Noted Time PHQ-9 Depression Total Score: 0 12/12/19 16 10:14 AM CDT documented as of this encounter Care Teams Flat Folder Relationship Specialty Start Date End Date Jenny Vaca M.D. [address] [place] [phone] PCP - General 11/11/16 documented as of this encounter
--- OUTSIDE RECORDS SUMMARY | 2024-09-13 12:42 | XMS_ITS | Encounter Summary ---
Author Organization [facility] Address [address] [place] [address] Care Team Providers Care Acetylene Torch Burner Name Role Phone Jenny Vaca M.D. Primary Care Provider [phone] Encounter Details Date Type Department Care Team (Late st Contact Info) Description 07/17/2015 Historical Ophthalmology RST OPH Richard Wright M.D., M.S. [address] [place] [address] Social History Tobacco Use Types Packs/Day Years Used Date Smoking Tobacco: Never Assessed Comments Unknown Sex and Gender Information Value Date Recorded Sex Assigned at Not on file Legal Sex Female 8:27 AM FISH PROCESSING SUPERVISOR Gender Identity Female 04/06/2017 8:58 AM FISH PROCESSING SUPERVISOR Sexual Orientation Straight 04/06/2017 8: 58 AM FISH PROCESSING SUPERVISOR documented as of this encounter Progress Notes * Richard Wright M.D. - 07/17/2015 1:23 PM CST Eye General CHIEF COMPLAINT follow up Steroid induced glaucoma HISTORY OF PRESENT ILLNESS The patient is a 70 year old female here for a follow up regarding Steroid induced glaucoma. Patient notes that she thinks her uveitis is worse in her right eye since she has lowered her PF to 2 drops a day. 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 Exam shows low grade uveitis, but possible slight increase in cells. No evidence of UGH Recommend Uveitis consult Increase PF to qid in interim #3 Proliferative diabetic retinopathy, both eyes hx rubiosis left s/p vitrectomy both eyes, s/p prp both eyes hx anti-VEGF both eyes #4 Pseudophakic, both eyes 17 Jul 2015 UBM both eyes: IOL appears centered both eyes, haptics within the superonasal and inferotemporal capsule both eyes, residual lens remnants within the capsule both eyes, portion of the anterior capsule appears missing from ~ 9:00 through 10:00 right eye. 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 [address] [place] [phone] 09/17/2024 1:30 PM CDT Office Visit Department of Internal Medicine in [place], [place] [address] [place] [address] Elissa Luo P.A.-C., M.S. [address] [place] [address] 09/18/2024 8:00 AM CDT Clinical Support Department of Oncology in [place], [place] [address] [place] [phone] Blossom Hernandez M.S.W., L.I.C.S.W. [address] [place] [phone] 09/20/2024 10:00 AM CDT Telemedicine Department of Oncology in [place], [place] [address] [place] [phone] Kerrie Vela M.B., B.Ch., M.D. [address] [place] [phone] 09/24/2024 8:30 AM CDT Lab Department of Oncology in [place], [place] [address] [place] [phone] Kerrie Vela M.B., B.Ch., M.D. [address] [place] [phone] 09/24/2024 9:40 AM CDT Office Visit Department of Oncology in [place], [place] [address] [place] [phone] Kerrie Vela M.B., B.Ch., M.D. [address] [place] [phone] 09/24/2024 10:20 AM CDT Education Department of Oncology in [place], [place] [address] [place] [phone] Kerrie Vela M.B., BDuran, M.DForeign [address] [place] [phone] 09/24/2024 11:30 AM CDT Appointment [facility], [facility], [facility] [address] [place] [phone] Kerrie Vela M.B., BForeignChForeign, M.DForeign [address] [place] [phone] 09/25/2024 8:30 AM CDT Appointment [facility], [facility], [facility] [address] [place] [phone] Kerrie Vela M.B., BForeignChForeign, M.DForeign [address] [place] [phone] 09/26/2024 8:30 AM CDT Appointment [facility], [facility], [facility] [address] [place] [phone] Kerrie Vela M.B., B.ChForeign, M.DForeign [address] [place] [phone] 09/28/2024 11:45 AM CDT Lab Department of Oncology in [place], [place] [address] [place] [phone] Kerrie Vela M.B., B.ChForeign, M.DForeign [address] [place] [phone] 09/28/2024 1:40 PM CDT Office Visit Department of Oncology in [place], [place] [address] [place] [phone] Dawood Ruiz P.A.-C. [address] [place] [phone] 10/01/2024 8:00 AM CDT Appointment [facility], [facility], [facility] [address] [place] [phone] Kerrie Vela M.B., B.ChForeign, M.DForeign [address] [place] [phone] 10/02/2024 8:00 AM CDT Appointment [facility], [facility], [facility] [address] [place] [phone] Kerrie Vela M.B., B.ChForeign, M.DForeign [address] [place] [phone] 10/03/2024 8:00 AM CDT Appointment [facility], [facility] [address] [place] [phone] eKrrie Vela M.B., B.ChForeign, M.DForeign [address] [place] [phone] 10/10/2024 6:30 AM CDT Lab Department of Oncology in [place], [place] [address] [place] [phone] Kerrie Vela M.B., B.ChForeign, M.DForeign [address] [place] [phone] 10/10/2024 8:20 AM CDT Office Visit Department of Oncology in [place], [place] [address] [place] [phone] Brittney Stuart M.D. [address] [place] [phone] 10/10/2024 12:30 PM CDT Infusion Department of Oncology in [place], [place] [address] [place] [phone] Kerrie Vela M.B., B.ChForeign, M.DForeign [address] [place] [phone] 10/12/2024 11:20 AM CDT Office Visit Department of Oncology in [place], [place] [address] [place] [phone] Kerrie Vela M.B., B.ChForeign, M.DForeign [address] [place] [phone] 10/17/2024 1:00 PM CDT Office Visit Department of Ophthalmology in [place], [place] [address] [place] [phone] Tomás Mcbride M.D. [address] [place] [phone] 10/23/2024 8:45 AM CDT Lab Department of Oncology in [place], [place] [address] [place] [phone] Kerrie Vela M.B., B.Ch., M.D. [address] [place] [phone] 10/23/2024 11:00 AM CDT Office Visit Department of Oncology in [place], [place] [address] [place] [phone] Kerrie Vela M.B., BForeignChForeign, MPhuc [address] [place] [phone] 10/23/2024 11:30 AM CDT Appointment Department of Radiology in [place], [place] [address] [place] [phone] Franny Dutta M.D. [address] [place] [phone] 10/24/2024 7:30 AM CDT Infusion Department of Oncology in [place], [place] [address] [place] [phone] Kerrie Vela M.B., B.ChForeign, MPhuc [address] [place] [phone] 10/24/2024 11:00 AM CDT Appointment Department of Radiation Oncology in [place], [place] [address] [place] [phone] Franny Dutta M.D. [address] [place] [phone] 10/25/2024 11:00 AM CDT Office Visit Department of Oncology in [place], [place] [address] [place] [phone] Kerrie Vela M.B., B.ChForeign, M.DForeign [address] [place] [phone] 11/06/2024 7:00 AM CDT Lab Department of Oncology in [place], [place] [address] [place] [phone] Kerrie Vela M.B., B.ChForeignAlin [address] [place] [phone] 11/06/2024 9:00 AM CDT Office Visit Department of Oncology in [place], [place] [address] [place] [phone] Dawood Ruiz P.A.-CForeign [address] [place] [phone] 11/06/2024 10:00 AM CDT Infusion Department of Oncology in [place], [place] [address] [place] [phone] Kerrie Vela M.B., B.ChForeign, M.Cecelia [address] [place] [phone] 11/20/2024 6:30 AM CDT Lab Department of Laboratory Medicine and Pathology, [facility] in [place], [place] [address] [place] [phone] Kerrie Vela M.B., B.Ch., M.DForeign [address] [place] [phone] 11/20/2024 8:20 AM CDT Office Visit Department of Oncology in [place], [place] [address] [place] [phone] Dawood Ruiz, P.A.-CForeign [address] [place] [phone] 11/20/2024 9:00 AM CDT Infusion Department of Oncology in [place], [place] [address] [place] [phone] Kerrie Vela M.B., B.Ch., M.D. [address] [place] [phone] 12/04/2024 8:30 AM CDT Lab Department of Laboratory Medicine and Pathology, [facility], in [place], [place] [address] [place] [address] Kerrie Vela M.B., BDuran, M.Cecelia [address] [place] [phone] 12/04/2024 10:20 AM CDT Office Visit Department of Oncology in [place], [place] [address] [place] [phone] Kerrie Vela M.B., BDuran, M.DForeign [address] [place] [phone] 12/04/2024 11:00 AM CDT Infusion Department of Oncology in [place], [place] [address] [place] [phone] Kerrie Vela M.B., BDuran, M.D. [address] [place] [phone] documented as of this encounter Visit Diagnoses Not on filedocumented in this encounter Additional Health Concerns Infection Onset Date Last Indicated Resolved Time COVID19 Pending 09/25/2019 09/25/2019 09/26/2019 1 :51 AM CDT COVID19 Pending 11/08/2019 11/08/2019 11/09/2019 1 :40 AM CDT COVID19 Pending 12/20/2019 12/20/2019 12/21/2019 1 1:51 AM CDT Protective Environment 02/21/2023 02/21/202305/08 5:44 AM FISH PROCESSING SUPERVISOR Protective Environment 05/11/2023 05/11/202306/13 6:17 AM FISH PROCESSING SUPERVISOR Protective Environment 06/27/2023 06/27/202310/15 5:30 AM CDT Protective Environment 10/28/2023 10/28/202306/25 5:58 AM FISH PROCESSING SUPERVISOR Protective Environment 07/05/2024 07/05/202409/02 6:26 AM CDT Assessment Noted Time PHQ-9 Depression Total Score: 0 08/01/19 8:33 AM FISH PROCESSING SUPERVISOR documented as of this encounter Care Teams Acetylene Torch Burner Relationship Specialty Start Date End Date Jenny Vaca M.D. [address] [place] [phone] PCP - General 11/11/16 documented as of this encounter
--- OUTSIDE RECORDS SUMMARY | 2024-09-13 12:42 | XMS_ITS | Encounter Summary ---
Author Organization [facility] Address [address] [place] [address] Care Team Providers Care Riding Instructor Name Role Phone Jenny Vaca M.D. Primary Care Provider Encounter Details Date Type Department Care Team (Late st Contact Info) Description 08/31/2024 Orders Only Department of Oncology in [place], [place] [address] [place] [phone] Marlo Diallo M.D. [address] [place] [address] Social History Tobacco Use Types Packs/Day Years Used Date Smoking Tobacco: Every Day Cigarettes 0.5 60 Passive Smoke Exposure: Current Smokeless Tobacco: Never Alcohol Use Standard Drinks/Week Comments Yes 1 (1 standard drink = 0.6 oz pur e alcohol) 1 beer per night [facility] Utilities Answer Date Recorded In [...] How often do you attend chur or confucianist services? More than 4 times per year [...] Answer Date Recorded PHQ-2 Score 0 06/18/2024 [facility] - [...] your living situation today? [facility] live 07/08/2023 Comments No Sex and Gender Information Value Date Recorded Sex Assigned at Not on file Legal Sex Female 8:27 AM DRY WALL INSTALLATIONS MECHANIC Gender Identity Female 04/06/2017 8:58 AM DRY WALL INSTALLATIONS MECHANIC Sexual Orientation Straight 04/06/2017 8: 58 AM DRY WALL INSTALLATIONS MECHANIC documented as of this encounter Plan of Treatment Upcoming Encounters Date Type Department Care Team (Late st Contact Info) Description 09/14/2024 11:00 AM CDT Admin Visit Department of Oncology in [place], [place] [address] [place] [address] 09/17/2024 8:00 AM CDT Lab Department of Infusion Therapy in [place], [place] [address] [place] [address] Jenny Vaca M.D. [address] [place] [address] 09/17/2024 1:30 PM CDT Office Visit Department of Internal Medicine in [place], [place] [address] [place] [facility] [place] [address] Elissa Luo P.A.-C., M.S. [address] [place] [address] 09/18/2024 8:00 AM CDT Clinical Support Department of Oncology in [address] [phone] Blossom Hernandez M.S.W., L.I.C.S.W. [address] [place] [phone] 09/20/2024 10:00 AM CDT Telemedicine Department of Oncology in [place], [place] [address] [place] [phone] Kerrie Vela M.B., B.Ch., M.D. [address] [place] [phone] 09/24/2024 8:30 AM CDT Lab Department of Oncology in [place], [place] [address] [place] [phone] Kerrie Vela M.B., B.Ch., M.D. [address] [place] [phone] 09/24/2024 9:40 AM CDT Office Visit Department of Oncology in [place], [place] [address] [place] [phone] Kerrie Vela M.B., Trevor, MPhuc [address] [place] [phone] 09/24/2024 10:20 AM CDT Education Department of Oncology in [place], [place] [address] [place] [phone] Kerrie Vela M.B., Trevor, MPhuc [address] [place] [phone] 09/24/2024 11:30 AM CDT Appointment [facility], [facility], [facility] [address] [place] [phone] Kerrie Vela M.B., Trevor, MPhuc [address] [place] [phone] 09/25/2024 8:30 AM CDT Appointment [facility], [facility], [facility] [address] [place] [phone] Kerrie Vela M.B., Trevor, MPhuc [address] [place] [phone] 09/26/2024 8:30 AM CDT Appointment [facility], [facility], [facility] [address] [place] [phone] Kerrie Vela M.B., Trevor, M.DForeign [address] [place] [phone] 09/28/2024 11:45 AM CDT Lab Department of Oncology in [place], [place] [address] [place] [phone] Kerrie Vela M.B., BDuran, M.DForeign [address] [place] [phone] 09/28/2024 1:40 PM CDT Office Visit Department of Oncology in [place], [place] [address] [place] [phone] Dawood Ruiz P.A.-C. [address] [place] [phone] 10/01/2024 8:00 AM CDT Appointment [facility], [facility], [facility] [address] [place] [phone] Kerrie Vela M.B., Trevor, MPhuc [address] [place] [phone] 10/02/2024 8:00 AM CDT Appointment [facility], [facility], [facility] [address] [place] [phone] Kerrie Vela M.B., Trevor, MPhuc [address] [place] [phone] 10/03/2024 8:00 AM CDT Appointment [facility], [facility], [facility] [address] [place] [phone] Kerrie Vela M.B., B.ChForeign, M.DForeign [address] [place] [phone] 10/10/2024 6:30 AM CDT Lab Department of Oncology in [place], [place] [address] [place] [phone] Kerrie Vela M.B., Trevor, MPhuc [address] [place] [phone] 10/10/2024 8:20 AM CDT Office Visit Department of Oncology in [place], [place] [address] [place] [phone] Brittney Stuart M.D. [address] [place] [phone] 10/10/2024 12:30 PM CDT Infusion Department of Oncology in [place], [place] [address] [place] [phone] Kerrie Vela M.B., B., M.DForeign [address] [place] [phone] 10/12/2024 11:20 AM CDT Office Visit Department of Oncology in [address] [phone] Kerrie Vela M.B., B.ChForeign, M.D. [address] [place] [phone] 10/17/2024 1:00 PM CDT Office Visit Department of Ophthalmology in [place], [place] [address] [place] [phone] Tomás Mcbride M.D. [address] [place] [phone] 10/23/2024 8:45 AM CDT Lab Department of Oncology in [place], [place] [address] [place] [phone] Kerrie Vela M.B., B.ChForeign, M.D. [address] [place] [phone] 10/23/2024 11:00 AM CDT Office Visit Department of Oncology in [place], [place] [address] [place] [phone] Kerrie Vela M.B., BDuran, MPhuc [address] [place] [phone] 10/23/2024 11:30 AM CDT Appointment Department of Radiology in [place], [place] [address] [place] [address] Franny Dutta M.D. [address] [place] [phone] 10/24/2024 7:30 AM CDT Infusion Department of Oncology in [place], [place] [address] [place] [phone] Kerrie Vela M.B., B., MForeignDForeign [address] [place] [phone] 10/24/2024 11:00 AM CDT Appointment Department of Radiation Oncology in [place], [place] [address] [place] [phone] Franny Dutta M.D. [address] [place] [phone] 10/25/2024 11:00 AM CDT Office Visit Department of Oncology in [place], [place] [address] [place] [phone] Kerrie Vela M.B., B., M.D. [address] [place] [phone] 11/06/2024 7:00 AM CDT Lab Department of Oncology in [place], [place] [address] [place] [phone] Kerrie Vela M.B., BForeignChForeign, M.DForeign [address] [place] [phone] 11/06/2024 9:00 AM CDT Office Visit Department of Oncology in [place], [place] [address] [place] [phone] Dawood Ruiz, P.A.-CForeign [address] [place] [phone] 11/06/2024 10:00 AM CDT Infusion Department of Oncology in [place], [place] [address] [place] [phone] Kerrie Vela M.B., B.ChForeign, M.DForeign [address] [place] [phone] 11/20/2024 6:30 AM CDT Lab Department of Laboratory Medicine and Pathology, [facility], in [place], [place] [address] [place] [phone] Kerrie Vela M.B., B.ChForeign, M.DForeign [address] [place] [phone] 11/20/2024 8:20 AM CDT Office Visit Department of Oncology in [place], [place] [address] [place] [phone] Dawood Ruiz, P.A.-CForeign [address] [place] [phone] 11/20/2024 9:00 AM CDT Infusion Department of Oncology in [place], [place] [address] [place] [phone] Kerrie Vela M.B., B.ChForeign, M.D. [address] [place] [phone] 12/04/2024 8:30 AM CDT Lab Department of Laboratory Medicine and Pathology, [facility], in [place], [place] [address] [place] [address] Kerrie Vela M.B., B.Ch., M.D. [address] [place] [phone] 12/04/2024 10:20 AM CDT Office Visit Department of Oncology in [place], [place] [address] [place] [address] Kerrie Vela M.B., B.ChForeign, M.D. [address] [place] [phone] 12/04/2024 11:00 AM CDT Infusion Department of Oncology in [place], [place] [address] [place] [address] Kerrie Vela M.B., B.Ch., M.D. [address] [place] [phone] documented as of this encounter Visit Diagnoses Not on filedocumented in this encounter Additional Health Concerns Infection Onset Date Last Indicated Resolved Time Protective Environment 07/05/2024 07/05/202409/02 6:26 AM CDT Assessment Noted Time PHQ-9 Depression Total Score: 0 07/04/19 24 9:20 AM DRY WALL INSTALLATIONS MECHANIC documented as of this encounter Care Teams Riding Instructor Relationship Specialty Start Date End Date Jenny Vaca M.D. [address] [place] [address] PCP - General 11/11/16 documented as of this encounter
--- OUTSIDE RECORDS SUMMARY | 2024-09-13 12:42 | XMS_ITS | Encounter Summary ---
Author Organization [facility] Address [address] [place] [address] Care Team Providers Care Set Up Mechanic Automatic Line Name Role Phone Jenny Vaca M.D. Primary Care Provider [phone] Encounter Details Date Type Department Care Team (Late st Contact Info) Description 08/11/2015 Historical Ophthalmology RST OPH Richard Wright M.D., M.S. [address] [place] [address] Social History Tobacco Use Types Packs/Day Years Used Date Smoking Tobacco: Never Assessed Comments Unknown Sex and Gender Information Value Date Recorded Sex Assigned at Not on file Legal Sex Female 8:27 AM CLINICAL GENETICIST Gender Identity Female 04/06/2017 8:58 AM CLINICAL GENETICIST Sexual Orientation Straight 04/06/2017 8: 58 AM CLINICAL GENETICIST documented as of this encounter Progress Notes * Richard Wright M.D. 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 She states that she would like her glasses changed, vision cloudy with the glasses, sees better without them. Patient denies ocular pain. IMPRESSION / REPORT / PLAN #1 Steroid [...] likely PRP related instead of glaucoma IOP high right, borderline left in late afternoon - IOP highly variable despite SLT ou Patient is very reluctant to have surgery. Options include Trabectome or tube shunt. She is scheduled to see Dr. Stuart on September 07. Will wait for her opinion on long-term options for stopping steroids to reduce IOP. In interim, continue current medications f/u after consultation with Dr. 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 Exam shows low grade uveitis, but possible slight increase in cells. 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 [address] [place] [phone] 09/17/2024 1:30 PM CDT Office Visit Department of Internal Medicine in [place], [place] [address] [facility] [place] [place] [address] Elissa Luo P.A.-C., M.S. [address] [place] [phone] 09/18/2024 8:00 AM CDT Clinical Support Department of Oncology in [place], [place] [address] [place] [phone] Blossom Hernandez M.S.W., L.I.C.S.W. [address] [place] [phone] 09/20/2024 10:00 AM CDT Telemedicine Department of Oncology in [place], [place] [address] [place] [phone] Kerrie Vela M.B., B.Ch., M.D. [address] [place] [phone] 09/24/2024 8:30 AM CDT Lab Department of Oncology in [place], [place] [address] [place] [phone] Kerrie Vela M.B., B.Ch., M.D. [address] [place] [phone] 09/24/2024 9:40 AM CDT Office Visit Department of Oncology in [place], [place] [address] [place] [phone] Kerrie Vela M.B., B.Ch., M.D. [address] [place] [phone] 09/24/2024 10:20 AM CDT Education Department of Oncology in [place], [place] [address] [place] [phone] Kerrie Vela M.B., BDuran, M.D. [address] [place] [phone] 09/24/2024 11:30 AM CDT Appointment [facility], [facility], [facility] [address] [place] [phone] Kerrie Vela M.B., BForeignChForeign, M.DForeign [address] [place] [phone] 09/25/2024 8:30 AM CDT Appointment [facility], [facility], [facility] [address] [place] [phone] Kerrie Vela M.B., BForeignChForeign, M.DForeign [address] [place] [phone] 09/26/2024 8:30 AM CDT Appointment [facility], [facility], [facility] [address] [place] [phone] Kerrie Vela M.B., B.ChForeign, M.DForeign [address] [place] [phone] 09/28/2024 11:45 AM CDT Lab Department of Oncology in [place], [place] [address] [place] [phone] Kerrie Vela M.B., B.ChForeign, M.DForeign [address] [place] [phone] 09/28/2024 1:40 PM CDT Office Visit Department of Oncology in [place], [place] [address] [place] [phone] Dawood Ruiz P.A.-C. [address] [place] [phone] 10/01/2024 8:00 AM CDT Appointment [facility], [facility], [facility] [address] [place] [phone] Kerrie Vela M.B., B.ChForeign, M.DForeign [address] [place] [phone] 10/02/2024 8:00 AM CDT Appointment [facility], [facility], [facility] [address] [place] [phone] Kerrie Vela M.B., B.ChForeign, M.D. [address] [place] [phone] 10/03/2024 8:00 AM CDT Appointment [facility], [facility], [facility] [address] [place] [phone] Kerrie Vela M.B., B.Ch., M.DForeign [address] [place] [phone] 10/10/2024 6:30 AM CDT Lab Department of Oncology in [place], [place] [address] [place] [phone] Kerrie Vela M.B., B.Ch., M.DForeign [address] [place] [phone] 10/10/2024 8:20 AM CDT Office Visit Department of Oncology in [place], [place] [address] [place] [phone] Brittney Stuart M.D. [address] [place] [phone] 10/10/2024 12:30 PM CDT Infusion Department of Oncology in [place], [place] [address] [place] [phone] Kerrie Vela M.B., B.ChForeign, M.D. [address] [place] [phone] 10/12/2024 11:20 AM CDT Office Visit Department of Oncology in [address] [phone] Kerrie Vela M.B., B.Ch., M.D. [address] [place] [phone] 10/17/2024 1:00 PM CDT Office Visit Department of Ophthalmology in [place], [place] [address] [place] [phone] Tomás Mcbride M.D. [address] [place] [phone] 10/23/2024 8:45 AM CDT Lab Department of Oncology in [place], [place] [address] [place] [phone] Kerrie Vela M.B., B.Ch., M.D. [address] [place] [phone] 10/23/2024 11:00 AM CDT Office Visit Department of Oncology in [place], [place] [address] [place] [phone] Kerrie Vela M.B., BDuran, M.Cecelia [address] [place] [phone] 10/23/2024 11:30 AM CDT Appointment Department of Radiology in [place], [place] [address] [place] [phone] Franny Dutta M.D. [address] [place] [phone] 10/24/2024 7:30 AM CDT Infusion Department of Oncology in [place], [place] [address] [place] [phone] Kerrie Vela M.B., B.ChForeign, M.DForeign [address] [place] [phone] 10/24/2024 11:00 AM CDT Appointment Department of Radiation Oncology in [place], [place] [address] [place] [address] Franny Dutta M.D. [address] [place] [phone] 10/25/2024 11:00 AM CDT Office Visit Department of Oncology in [place], [place] [address] [place] [phone] Kerrie Vela M.B., B.ChForeign, M.D. [address] [place] [phone] 11/06/2024 7:00 AM CDT Lab Department of Oncology in [place], [place] [address] [place] [phone] Kerrie Vela M.B., B.ChForeign, M.DForeign [address] [place] [phone] 11/06/2024 9:00 AM CDT Office Visit Department of Oncology in [place], [place] [address] [place] [address] Dawood Ruiz P.A.-CForeign [address] [place] [phone] 11/06/2024 10:00 AM CDT Infusion Department of Oncology in [place], [place] [address] [place] [phone] Kerrie Vela M.B., B.Ch., M.D. [address] [place] [phone] 11/20/2024 6:30 AM CDT Lab Department of Laboratory Medicine and Pathology, [facility] [place], [place] [address] [place] [phone] Kerrie Vela M.B., B.Ch., M.D. [address] [place] [phone] 11/20/2024 8:20 AM CDT Office Visit Department of Oncology in [place], [place] [address] [place] [phone] Dawood Ruiz, P.A.-CForeign [address] [place] [phone] 11/20/2024 9:00 AM CDT Infusion Department of Oncology in [place], [place] [address] [place] [phone] Kerrie Vela M.B., B.Ch., M.D. [address] [place] [phone] 12/04/2024 8:30 AM CDT Lab Department of Laboratory Medicine and Pathology, [facility], in [place], [place] [address] [place] [address] Kerrie Vela M.B., BDuran, MPhuc [address] [place] [phone] 12/04/2024 10:20 AM CDT Office Visit Department of Oncology in [place], [place] [address] [place] [address] Kerrie Vela M.B., Trevor, MPhuc [address] [place] [phone] 12/04/2024 11:00 AM CDT Infusion Department of Oncology in [place], [place] [address] [place] [address] Kerrie Vela M.B., BDuran, MPhuc [address] [place] [phone] documented as of this encounter Visit Diagnoses Not on filedocumented in this encounter Additional Health Concerns Infection Onset Date Last Indicated Resolved Time COVID19 Pending 09/25/2019 09/25/2019 09/26/2019 1 :51 AM CDT COVID19 Pending 11/08/2019 11/08/2019 11/09/2019 1 :40 AM CDT COVID19 Pending 12/20/2019 12/20/2019 12/21/2019 1 1:51 AM CDT Protective Environment 02/21/2023 02/21/202305/08 5:44 AM CLINICAL GENETICIST Protective Environment 05/11/2023 05/11/202306/13 6:17 AM CLINICAL GENETICIST Protective Environment 06/27/2023 06/27/202310/15 5:30 AM CDT Protective Environment 10/28/2023 10/28/202306/25 5:58 AM CLINICAL GENETICIST Protective Environment 07/05/2024 07/05/202409/02 6:26 AM CDT Assessment Noted Time PHQ-9 Depression Total Score: 0 08/01/19 8:33 AM CLINICAL GENETICIST documented as of this encounter Care Teams Set Up Mechanic Automatic Line Relationship Specialty Start Date End Date Jenny Vaca M.D. [address] [place] [phone] PCP - General 11/11/16 documented as of this encounter
--- OUTSIDE RECORDS SUMMARY | 2024-09-13 12:42 | XMS_ITS | Encounter Summary ---
Author Organization [facility] Address [address] [place] [address] Care Team Providers Care Nut Roaster Name Role Phone Jenny Vaca M.D. Primary Care Provider [phone]- [phone] Encounter Details Date Type Department Care Team (Late st Contact Info) Description 06/16/2015 Historical Ophthalmology RST OPH Richard Wright M.D., M.S. [address] [place] [address] Social History Tobacco Use Types Packs/Day Years Used Date Smoking Tobacco: Never Assessed Comments Unknown Sex and Gender Information Value Date Recorded Sex Assigned at Not on file Legal Sex Female 8:27 AM SYSTEMS ARCHITECTURE ANALYST Gender Identity Female 04/06/2017 8:58 AM SYSTEMS ARCHITECTURE ANALYST Sexual Orientation Straight 04/06/2017 8: 58 AM SYSTEMS ARCHITECTURE ANALYST documented as of this encounter Progress Notes * Richard Wright M.D. 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 Patient reports vision is stable since last visit. Denies any flashes of light and floaters. Patient has tired feeling still in both eyes, increases as the day goes on. Last A1c: 7.1, due again in June 2015. IMPRESSION / REPORT / PLAN #1 Steroid [...] PRP related instead of glaucoma IOP acceptable today but IOP typically lower in AM Recommend SLT right Risks, benefits and alternatives discussed and all questions answered. Patient wishes to proceed. 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 She is not sure if she has been tapered to once daily since this started circa 2011. 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 [address] [place] [phone] 09/17/2024 1:30 PM CDT Office Visit Department of Internal Medicine in [place], [place] [address] [place] [address] Elissa Luo P.A.-C., M.S. [address] [place] [phone] 09/18/2024 8:00 AM CDT Clinical Support Department of Oncology in [address] [address] Blossom Hernandez M.[place]., L.I.C.S.W. [address] [place] [phone] 09/20/2024 10:00 AM CDT Telemedicine Department of Oncology in [address] [address] Kerrie Vela M.B., B.Ch., M.D. [address] [place] [phone] 09/24/2024 8:30 AM CDT Lab Department of Oncology in [address] [phone] Kerrie Vela M.B., B.Ch., M.D. [address] [place] [phone] 09/24/2024 9:40 AM CDT Office Visit Department of Oncology in [address] [phone] Kerrie Vela M.B., B.Ch., MForeignDForeign [address] [place] [phone] 09/24/2024 10:20 AM CDT Education Department of Oncology in [place], [place] [address] [place] [phone] Kerrie Vela M.B., BDuran, MPhuc [address] [place] [phone] 09/24/2024 11:30 AM CDT Appointment [facility], [facility], [facility] [address] [place] [phone] Kerrie Vela M.B., Trevor, MPhuc [address] [place] [phone] 09/25/2024 8:30 AM CDT Appointment [facility], [facility], [facility] [address] [place] [phone] Kerrie Vela M.B., BDuran, MForeignDForeign [address] [place] [phone] 09/26/2024 8:30 AM CDT Appointment [facility], [facility], [facility] [address] [place] [phone] Kerrie Vela M.B., B., M.DForeign [address] [place] [phone] 09/28/2024 11:45 AM CDT Lab Department of Oncology in [place], [place] [address] [place] [phone] Kerrie Vela M.B., B.ChForeign, M.DForeign [address] [place] [phone] 09/28/2024 1:40 PM CDT Office Visit Department of Oncology in [place], [place] [address] [place] [phone] Dawood Ruiz P.A.-C. [address] [place] [phone] 10/01/2024 8:00 AM CDT Appointment [facility], [facility], [facility] [address] [place] [phone] Kerrie Vela M.B., BForeignChForeign, M.DForeign [address] [place] [phone] 10/02/2024 8:00 AM CDT Appointment [facility], [facility], [facility] [address] [place] [phone] Kerrie Vela M.B., BForeignChForeign, M.DForeign [address] [place] [phone] 10/03/2024 8:00 AM CDT Appointment [facility], [facility], [facility] [address] [place] [phone] Kerrie Vela M.B., B.ChForeign, M.DForeign [address] [place] [phone] 10/10/2024 6:30 AM CDT Lab Department of Oncology in [place], [place] [address] [place] [phone] Kerrie Vela M.B., B.ChForeign, M.DForeign [address] [place] [phone] 10/10/2024 8:20 AM CDT Office Visit Department of Oncology in [place], [place] [address] [place] [phone] Brittney Stuart M.D. [address] [place] [phone] 10/10/2024 12:30 PM CDT Infusion Department of Oncology in [place], [place] [address] [place] [phone] Kerrie Vela M.B., Trevor, M.DForeign [address] [place] [phone] 10/12/2024 11:20 AM CDT Office Visit Department of Oncology in [place], [place] [address] [place] [phone] Kerrie Vela M.B., B., M.D. [address] [place] [phone] 10/17/2024 1:00 PM CDT Office Visit Department of Ophthalmology in [place], [place] [address] [place] [phone] Tomás Mcbride M.D. [address] [place] [phone] 10/23/2024 8:45 AM CDT Lab Department of Oncology in [place], [place] [address] [place] [phone] Kerrie Vela M.B., B., M.D. [address] [place] [phone] 10/23/2024 11:00 AM CDT Office Visit Department of Oncology in [place], [place] [address] [place] [phone] Kerrie Vela M.B., BDuran, MPhuc [address] [place] [phone] 10/23/2024 11:30 AM CDT Appointment Department of Radiology in [place], [place] [address] [place] [phone] Franny Dutta M.D. [address] [place] [phone] 10/24/2024 7:30 AM CDT Infusion Department of Oncology in [place], [place] [address] [place] [phone] Kerrie Vela M.B., BDuran, MForeignDForeign [address] [place] [phone] 10/24/2024 11:00 AM CDT Appointment Department of Radiation Oncology in [place], [place] [address] [place] [phone] Franny Dutta M.D. [address] [place] [phone] 10/25/2024 11:00 AM CDT Office Visit Department of Oncology in [place], [place] [address] [place] [phone] Kerrie Vela M.B., B., M.D. [address] [place] [phone] 11/06/2024 7:00 AM CDT Lab Department of Oncology in [place], [place] [address] [place] [phone] Kerrie Vela M.B., BForeignChForeign, M.DForeign [address] [place] [phone] 11/06/2024 9:00 AM CDT Office Visit Department of Oncology in [place], [place] [address] [place] [address] Dawood Ruiz, P.A.-CForeign [address] [place] [phone] 11/06/2024 10:00 AM CDT Infusion Department of Oncology in [place], [place] [address] [place] [address] Kerrie Vela M.B., BDuran, M.DForeign [address] [place] [phone] 11/20/2024 6:30 AM CDT Lab Department of Laboratory Medicine and Pathology, [facility], in [place], [place] [address] [place] [address] Kerrie Vela M.B., B.ChForeign, M.DForeign [address] [place] [phone] 11/20/2024 8:20 AM CDT Office Visit Department of Oncology in [place], [place] [address] [place] [address] Dawood Ruiz, P.A.-CForeign [address] [place] [phone] 11/20/2024 9:00 AM CDT Infusion Department of Oncology in [place], [place] [address] [place] [address] Kerrie Vela M.B., B.ChForeign, M.DForeign [address] [place] [phone] 12/04/2024 8:30 AM CDT Lab Department of Laboratory Medicine and Pathology, [facility], in [place], [place] [address] [place] [phone] Kerrie Vela M.B., B.Ch., M.D. [address] [place] [phone] 12/04/2024 10:20 AM CDT Office Visit Department of Oncology in [place], [place] [address] [place] [phone] Kerrie Vela M.B., B.ChForeign, M.D. [address] [place] [phone] 12/04/2024 11:00 AM CDT Infusion Department of Oncology in [place], [place] [address] [place] [phone] Kerrie Vela M.B., B.Ch., M.D. [address] [place] [phone] documented as of this encounter Visit Diagnoses Not on filedocumented in this encounter Additional Health Concerns Infection Onset Date Last Indicated Resolved Time COVID19 Pending 09/25/2019 09/25/2019 09/26/2019 1 :51 AM CDT COVID19 Pending 11/08/2019 11/08/2019 11/09/2019 1 :40 AM CDT COVID19 Pending 12/20/2019 12/20/2019 12/21/2019 1 1:51 AM CDT Protective Environment 02/21/2023 02/21/202305/08 5:44 AM SYSTEMS ARCHITECTURE ANALYST Protective Environment 05/11/2023 05/11/202306/13 6:17 AM SYSTEMS ARCHITECTURE ANALYST Protective Environment 06/27/2023 06/27/202310/15 5:30 AM CDT Protective Environment 10/28/2023 10/28/202306/25 5:58 AM SYSTEMS ARCHITECTURE ANALYST Protective Environment 07/05/2024 07/05/202409/02 6:26 AM CDT Assessment Noted Time PHQ-9 Depression Total Score: 0 08/01/19 8:33 AM SYSTEMS ARCHITECTURE ANALYST documented as of this encounter Care Teams Nut Roaster Relationship Specialty Start Date End Date Jenny Vaca M.D. [address] [phone] PCP - General 11/11/16 documented as of this encounter
--- OUTSIDE RECORDS SUMMARY | 2024-09-13 12:42 | XMS_ITS | Encounter Summary ---
Author Organization [facility] Address [address] [place] [address] Care Team Providers Care Director Software Development Name Role Phone Jenny Vaca M.D. Primary Care Provider [phone]- [phone] Encounter Details Date Type Department Care Team (Late st Contact Info) Description 11/17/2015 Historical Ophthalmology RST OPH Kaylee Stuart M.D. [address] [place] [address] Social History Tobacco Use Types Packs/Day Years Used Date Smoking Tobacco: Never Assessed Comments Unknown Sex and Gender Information Value Date Recorded Sex Assigned at Not on file Legal Sex Female 8:27 AM TRAVELING MISSIONARY Gender Identity Female 04/06/2017 8:58 AM TRAVELING MISSIONARY Sexual Orientation Straight 04/06/2017 8: 58 AM TRAVELING MISSIONARY documented as of this encounter Progress Notes * Kaylee Stuart M.D. - 11/17/2015 8:44 AM CDT Eye General CHIEF COMPLAINT recheck uveitis HISTORY OF PRESENT ILLNESS Patient compliant with all her eye drops. Patient feels like she has had a flare up of uveitis, patient says it seems like something is in her eye and she has been very sensitive to light the last few days. Patient denies eye pain or headaches. Patient says that her eye has been red and she has been rubbing it alot. WMS: The right eye feels like it has active uveitis. 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 (CE was 09/15/07) 02/2010 labs: [...] OU noted 02/2011 (right was still phakic) #3 Proliferative diabetic retinopathy, both eyes hx [...] edema s/p intravitreal triamcinolone x multiple Avastin IMAGING 08 Sep 2015 Spectralis OCT - right - mild atrophy, few laser scars, trace ERM without wrinkling, noCME; left - decreased thickening in nasal macula vs 2011 OCT, increased atrophy in central and superotemporal macula. central atrophy and loss of outer retinal structures, no CME. CLINICAL COURSE Uveitis onset was two years after CE OS and before CE OD. Work up in 2009 was negative. 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 Unclear if symptoms of recurrence have truly represented recurrent uveitis. Systemic medication would have a lot of side effects, and an additional issue was the fact that shewas planning to go to [place] for the summer. (now delayed) First WMS visit 09/08/15, I advised her to decrease prednisolone to BID OU but she did not decrease until around 09/20/15 due to confusion about instructions. IOP was still too high in the right eye and Dr. Wright was concerned that surgery is going to be necessary. However, since she was planning to go away for several months ([place] September - late Dec/early Jan), so surgery was not be feasible. We continued to try to taper steroid gtts: decreased to daily as of 10/04/15. When she returned with Dr. Wright and WMS on 10/17/15, IOP was improved although she had a little more AC cell OS. Continued prednisolone daily and plan to f/u with WMS in a month. TODAY - 11/17/15 Increased redness, irritation, blurred vision in the right eye x a few days. Symptom onset corresponded to using fans on the porch - air flow directed at her eyes. She has been trying to use more artificial tears. Just a few more AC cells OD on exam, but not enough to reach lowest grade 0.5+ or explain her decreased VA. Symptoms mainly surface related due to dryness from evaporation. Her IOP is okay, so we will not increase prednisolone from once daily OD> Continue frequent artificial tears, try tear gel (Genteal or Celluvisc). She is leaving for a three week trip to [facility] tomorrow. Will return to see Dr. Wright on 12/12/15. PAGE WMS to see her in Dr. Wright's exam bev. 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 #3 Proliferative diabetic retinopathy, both eyes #4 Pseudophakic, both eyes #5 History of diabetic macular edema s/p intravitreal triamcinolone x multiple Avastin CDM Reports - EYEGEN Id: [id number] Status: Fnl documented in this encounter Plan of Treatment Upcoming Encounters Date Type Department Care Team (Late st Contact Info) Description 09/14/2024 11:00 AM CDT Admin Visit Department of Oncology in [place], [place] [address] [place] [phone] 09/17/2024 8:00 AM CDT Lab Department of Infusion Therapy in [place], [place] [address] [phone] Jenny Vaca M.D. [address] [phone] 09/17/2024 1:30 PM CDT Office Visit Department of Internal Medicine in [place], [place] [address] [place] [phone] Elissa Luo, PForeignA.-C., M.S. [address] [phone] 09/18/2024 8:00 AM CDT Clinical Support Department of Oncology in [address] [phone] Blossom Hernandez M.S.W., L.I.C.S.W. [address] [place] [phone] 09/20/2024 10:00 AM CDT Telemedicine Department of Oncology in [address] [phone] Kerrie Vela M.B., B.Ch., M.Lorena. [address] [place] [phone] 09/24/2024 8:30 AM CDT Lab Department of Oncology in [place], [place] [address] [place] [address] Kerrie Vela M.B., B.ChForeign, M.DForeign [address] [place] [phone] 09/24/2024 9:40 AM CDT Office Visit Department of Oncology in [place], [place] [address] [place] [phone] Kerrie Vela M.B., B.ChForeign, M.DForeign [address] [place] [phone] 09/24/2024 10:20 AM CDT Education Department of Oncology in [place], [place] [address] [place] [address] Kerrie Vela M.B., B.Ch., M.DForeign [address] [place] [phone] 09/24/2024 11:30 AM CDT Appointment [facility], [facility], [facility] [address] [place] [phone] Kerrie Vela M.B., B.Ch., M.DForeign [address] [place] [phone] 09/25/2024 8:30 AM CDT Appointment [facility], [facility], [facility] [address] [place] [phone] Kerrie Vela M.B., B.ChForeign, M.DForeign [address] [place] [phone] 09/26/2024 8:30 AM CDT Appointment [facility], [facility], [facility] [address] [place] [phone] Kerrie Vela M.B., B.ChForeign, M.DForeign [address] [place] [phone] 09/28/2024 11:45 AM CDT Lab Department of Oncology in [place], [place] [address] [place] [phone] Kerrie Vela M.B., B.ChForeign, M.DForeign [address] [place] [phone] 09/28/2024 1:40 PM CDT Office Visit Department of Oncology in [place], [place] [address] [place] [phone] Dawood Ruiz P.A.-C. [address] [place] [phone] 10/01/2024 8:00 AM CDT Appointment [facility], [facility], [facility] [address] [place] [phone] Kerrie Vela M.B., B.Ch., M.DForeign [address] [place] [phone] 10/02/2024 8:00 AM CDT Appointment [facility], [facility], [facility] [address] [place] [phone] Kerrie Vela M.B., B.Ch., M.DForeign [address] [place] [phone] 10/03/2024 8:00 AM CDT Appointment [facility], [facility], [facility], [facility] [address] [place] [phone] Kerrie Vela M.B., B.ChForeign, M.DForeign [address] [place] [phone] 10/10/2024 6:30 AM CDT Lab Department of Oncology in [place], [place] [address] [place] [phone] Kerrie Vela M.B., B.ChForeign, M.DForeign [address] [place] [phone] 10/10/2024 8:20 AM CDT Office Visit Department of Oncology in [place], [place] [address] [place] [phone] Brittney Stuart M.D. [address] [place] [phone] 10/10/2024 12:30 PM CDT Infusion Department of Oncology in [place], [place] [address] [place] [phone] Kerrie Vela M.B., B.Ch., M.DForeign [address] [place] [phone] 10/12/2024 11:20 AM CDT Office Visit Department of Oncology in [place], [place] [address] [place] [phone] Kerrie Vela M.B., B., M.DForeign [address] [place] [phone] 10/17/2024 1:00 PM CDT Office Visit Department of Ophthalmology in [place], [place] [address] [place] [phone] Tomás Mcbride M.D. [address] [place] [phone] 10/23/2024 8:45 AM CDT Lab Department of Oncology in [place], [place] [address] [place] [phone] Kerrie Vela M.B., BDuran, M.DForeign [address] [place] [phone] 10/23/2024 11:00 AM CDT Office Visit Department of Oncology in [place], [place] [address] [place] [address] Kerrie Vela M.B., B.ChForeign, M.DForeign [address] [place] [phone] 10/23/2024 11:30 AM CDT Appointment Department of Radiology in [place], [place] [address] [place] [phone] Franny Dutta M.D. [address] [place] [phone] 10/24/2024 7:30 AM CDT Infusion Department of Oncology in [place], [place] [address] [place] [address] Kerrie Vela M.B., B., M.DForeign [address] [place] [phone] 10/24/2024 11:00 AM CDT Appointment Department of Radiation Oncology in [place], [place] [address] [place] [phone] Franny Dutta M.D. [address] [place] [phone] 10/25/2024 11:00 AM CDT Office Visit Department of Oncology in [place], [place] [address] [place] [address] Kerrie Vela M.B., B., M.DForeign [address] [place] [phone] 11/06/2024 7:00 AM CDT Lab Department of Oncology in [place], [place] [address] [place] [phone] Kerrie Vela M.B., B., M.DForeign [address] [place] [phone] 11/06/2024 9:00 AM CDT Office Visit Department of Oncology in [place], [place] [address] [place] [phone] Dawood Ruiz P.A.-C. [address] [place] [phone] 11/06/2024 10:00 AM CDT Infusion Department of Oncology in [place], [place] [address] [place] [phone] Kerrie Vela M.B., B.ChForeign, M.DForeign [address] [place] [phone] 11/20/2024 6:30 AM CDT Lab Department of Laboratory Medicine and Pathology, [facility], in [place], [place] [address] [place] [phone] Kerrie Vela M.B., B.ChForeign, M.DForeign [address] [place] [phone] 11/20/2024 8:20 AM CDT Office Visit Department of Oncology in [address] [phone] Dawood Ruiz P.A.-C. [address] [place] [phone] 11/20/2024 9:00 AM CDT Infusion Department of Oncology in [address] [phone] Kerrie Vela M.B., B.Ch., M.D. [address] [place] [phone] 12/04/2024 8:30 AM CDT Lab Department of Laboratory Medicine and Pathology, [facility] in [address] [phone] Kerrie Vela M.B., B.Ch., M.D. [address] [place] [phone] 12/04/2024 10:20 AM CDT Office Visit Department of Oncology in [address] [phone] Kerrie Vela M.B., B.Ch., M.D. [address] [place] [phone] 12/04/2024 11:00 AM CDT Infusion Department of Oncology in [address] [phone] Kerrie Vela M.B., B.Ch., M.D. [address] [place] [phone] documented as of this encounter Visit Diagnoses Not on filedocumented in this encounter Additional Health Concerns Infection Onset Date Last Indicated Resolved Time COVID19 Pending 09/25/2019 09/25/2019 09/26/2019 1 :51 AM CDT COVID19 Pending 11/08/2019 11/08/2019 11/09/2019 1 :40 AM CDT COVID19 Pending 12/20/2019 12/20/2019 12/21/2019 1 1:51 AM CDT Protective Environment 02/21/2023 02/21/202305/08 5:44 AM TRAVELING MISSIONARY Protective Environment 05/11/2023 05/11/202306/13 6:17 AM TRAVELING MISSIONARY Protective Environment 06/27/2023 06/27/202310/15 5:30 AM CDT Protective Environment 10/28/2023 10/28/202306/25 5:58 AM TRAVELING MISSIONARY Protective Environment 07/05/2024 07/05/202409/02 6:26 AM CDT Assessment Noted Time PHQ-9 Depression Total Score: 0 08/01/19 15 8:33 AM TRAVELING MISSIONARY documented as of this encounter Care Teams Director Software Development Relationship Specialty Start Date End Date Jenny Vaca M.D. [address] [place] [address] PCP - General 11/11/16 documented as of this encounter
--- OUTSIDE RECORDS SUMMARY | 2024-09-13 12:42 | XMS_ITS | Encounter Summary ---
Author Organization [facility] Address [address] [place] [address] Care Team Providers Care Registered Nurse Maternity Name Role Phone Jenny Vaca M.D. Primary Care Provider [phone]- [phone] Reason for Visit * Reason Onset Date Comments Decision 08/31/2024 Encounter Details Date Type Department Care Team (Late st Contact Info) Description 08/31/2024 Clinical Communication Department of Oncology in [place], [place] [address] [place] [phone] Marlo Diallo M.D. [address] [place] [phone] Decision Social History Tobacco Use Types Packs/Day Years Used Date Smoking Tobacco: Every Day Cigarettes 0.5 60 Passive Smoke Exposure: Current Smokeless Tobacco: Never Alcohol Use Standard Drinks/Week Comments Yes 1 (1 standard drink = 0.6 oz pur e alcohol) 1 beer per night [facility] Utilities Answer Date Recorded In the past 12 months has e [employer], gas, oil, or water [employer] threatened to shut off services in your [...] How often do you attend chur or caodaism services? More than 4 times per year [...] Date Recorded PHQ-2 Score 0 06/18/2024 [facility] - Occupational [...] your living situation today? 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 [address] [phone] 09/17/2024 1:30 PM CDT Office Visit Department of Internal Medicine in [place], [place] [address] [phone] Elissa Luo P.A.-C., M.S. [address] [phone] 09/18/2024 8:00 AM CDT Clinical Support Department of Oncology in [address] [address] Blossom Hernandez M.S.W., L.I.C.S.W. [address] [place] [phone] 09/20/2024 10:00 AM CDT Telemedicine Department of Oncology in [address] [address] Kerrie Vela M.B., B.Ch., M.D. [address] [place] [phone] 09/24/2024 8:30 AM CDT Lab Department of Oncology in [place], [place] [address] [place] [phone] Kerrie Vela M.B., B.Ch., M.D. [address] [place] [phone] 09/24/2024 9:40 AM CDT Office Visit Department of Oncology in [address] [address] Kerrie Vela M.B., BDuran, MPhuc [address] [place] [phone] 09/24/2024 10:20 AM CDT Education Department of Oncology in [place], [place] [address] [place] [phone] Kerrie Vela M.B., Trevor, M.Cecelia [address] [place] [phone] 09/24/2024 11:30 AM CDT Appointment [facility], [facility], [facility] [address] [place] [phone] Kerrie Vela M.B., Trevor, M.DForeign [address] [place] [phone] 09/25/2024 8:30 AM CDT Appointment [facility], [facility], [facility] [address] [place] [phone] Kerrie Vela M.B., Trevor, M.DForeign [address] [place] [phone] 09/26/2024 8:30 AM CDT Appointment [facility], [facility], [facility] [address] [place] [phone] Kerrie Vela M.B., Trevor, M.DForeign [address] [place] [phone] 09/28/2024 11:45 AM CDT Lab Department of Oncology in [place], [place] [address] [place] [phone] Kerrie Vela M.B., BForeignChForeign, M.DForeign [address] [place] [phone] 09/28/2024 1:40 PM CDT Office Visit Department of Oncology in [place], [place] [address] [place] [phone] aDwood Ruiz P.A.-C. [address] [place] [phone] 10/01/2024 8:00 AM CDT Appointment [facility], [facility], [address] [phone] Kerrie Vela M.B., BForeignChForeign, M.DForeign [address] [place] [phone] 10/02/2024 8:00 AM CDT Appointment [facility], [facility], [facility] [address] [place] [phone] Kerrie Vela M.B., BForeignChForeign, M.DForeign [address] [place] [phone] 10/03/2024 8:00 AM CDT Appointment [facility], [facility], [facility] [address] [place] [phone] Kerrie Vela M.B., B.ChForeign, M.DForeign [address] [place] [phone] 10/10/2024 6:30 AM CDT Lab Department of Oncology in [place], [place] [address] [place] [phone] Kerrie Vela M.B., B.ChForeign, M.DForeign [address] [place] [phone] 10/10/2024 8:20 AM CDT Office Visit Department of Oncology in [place], [place] [address] [place] [phone] Brittney Stuart M.D. [address] [place] [phone] 10/10/2024 12:30 PM CDT Infusion Department of Oncology in [place], [place] [address] [place] [phone] Kerrie Vela M.B., B.ChForeign, M.D. [address] [place] [phone] 10/12/2024 11:20 AM CDT Office Visit Department of Oncology in [place], [place] [address] [place] [phone] Kerrie Vela M.B., B.Ch., M.D. [address] [place] [phone] 10/17/2024 1:00 PM CDT Office Visit Department of Ophthalmology in [place], [place] [address] [place] [phone] Tomás Mcbride M.D. [address] [place] [phone] 10/23/2024 8:45 AM CDT Lab Department of Oncology in [place], [place] [address] [place] [phone] Kerrie Vela M.B., B.ChForeign, M.DForeign [address] [place] [phone] 10/23/2024 11:00 AM CDT Office Visit Department of Oncology in [place], [place] [address] [place] [phone] Kerrie Vela M.B., BDuran, M.DForeign [address] [place] [phone] 10/23/2024 11:30 AM CDT Appointment Department of Radiology in [place], [place] [address] [place] [address] Franny Dutta M.D. [address] [place] [phone] 10/24/2024 7:30 AM CDT Infusion Department of Oncology in [place], [place] [address] [place] [phone] Kerrie Vela M.B., BDuran, MForeignDForeign [address] [place] [phone] 10/24/2024 11:00 AM CDT Appointment Department of Radiation Oncology in [place], [place] [address] [place] [phone] Franny Dutta M.D. [address] [place] [phone] 10/25/2024 11:00 AM CDT Office Visit Department of Oncology in [place], [place] [address] [place] [phone] Kerrie Vela M.B., B., M.D. [address] [place] [phone] 11/06/2024 7:00 AM CDT Lab Department of Oncology in [place], [place] [address] [place] [phone] Kerrie Vela M.B., BDuran, M.DForeign [address] [place] [phone] 11/06/2024 9:00 AM CDT Office Visit Department of Oncology in [place], [place] [address] [place] [phone] Dawood Ruiz, P.A.-CForeign [address] [place] [phone] 11/06/2024 10:00 AM CDT Infusion Department of Oncology in [place], [place] [address] [place] [phone] Kerrie Vela M.B., BDuran, M.Cecelia [address] [place] [phone] 11/20/2024 6:30 AM CDT Lab Department of Laboratory Medicine and Pathology, [facility] in [place], [place] [address] [place] [phone] Kerrie Vela M.B., B., M.DForeign [address] [place] [phone] 11/20/2024 8:20 AM CDT Office Visit Department of Oncology in [place], [place] [address] [place] [phone] Dawood Ruiz, P.A.-CForeign [address] [place] [phone] 11/20/2024 9:00 AM CDT Infusion Department of Oncology in [place], [place] [address] [place] [phone] Kerrie Vela M.B., B.ChForeign, M.D. [address] [place] [phone] 12/04/2024 8:30 AM CDT Lab Department of Laboratory Medicine and Pathology, [facility], in [place], [place] [address] [place] [address] Kerrie Vela M.B., B., M.DForeign [address] [place] [phone] 12/04/2024 10:20 AM CDT Office Visit Department of Oncology in [place], [place] [address] [place] [address] Kerrie Vela M.B., BDuran, M.DForeign [address] [place] [phone] 12/04/2024 11:00 AM CDT Infusion Department of Oncology in [place], [place] [address] [place] [phone] Kerrie Vela M.B., B.ChForeign, M.DForeign [address] [place] [phone] documented as of this encounter Visit Diagnoses Not on filedocumented in this encounter Additional Health Concerns Infection Onset Date Last Indicated Resolved Time Protective Environment 07/05/2024 07/05/202409/02 6:26 AM CDT Assessment Noted Time PHQ-9 Depression Total Score: 0 07/04/19 24 9:20 AM 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 [address] [phone] PCP - General 11/11/16 documented as of this encounter
--- OUTSIDE RECORDS SUMMARY | 2024-09-13 12:42 | XMS_ITS | Encounter Summary ---
Author Organization [facility] Address [address] [place] [address] Care Team Providers Care Finish Cleaner Name Role Phone Jenny Vaca M.D. Primary Care Provider [phone] Reason for Visit * Reason Onset Date Comments Med Refill 07/11/2024 Encounter Details Date Type Department Care Team (Late st Contact Info) Description 07/11/2024 Refill Department of Internal Medicine in [place], [place] [address] [place] [phone] Jenny Vaca M.D. [address] [place] [phone] Med Refill Social History Tobacco Use Types Packs/Day Years Used Date Smoking Tobacco: Every Day Cigarettes 0.5 60 Passive Smoke Exposure: Current Smokeless Tobacco: Never Alcohol Use Standard Drinks/Week Comments Yes 1 (1 standard drink = 0.6 oz pur e alcohol) 1 beer per night [facility] Utilities Answer Date Recorded In the past 12 months has e electric, gas, oil, or water [employer] threatened to shut off services in your [...] How often do you attend formerly [facility] or yazdanism services? More than 4 times [...] Answer Date Recorded PHQ-2 Score 0 06/18/2024 [facility] - Occupational [...] living situation today? I have a [facility] place to live 07/08/2023 Comments No Sex and Gender Information Value Date Recorded Sex Assigned at Not on file Legal Sex Female 8:27 AM PRODUCTION BOW MAKER Gender Identity Female 04/06/2017 8:58 AM PRODUCTION BOW MAKER Sexual Orientation Straight 04/06/2017 8: 58 AM PRODUCTION BOW MAKER documented as of this encounter Miscellaneous Notes * Telephone Encounter - Lalo Kessler - 07/11/2024 7:46 AM CST Provider Review: Medication Change Request or Prior Authorization Primary Provider: Jenny Vaca M.D. Metoprolol 37.5 mg Take one tablet PO twice daily This strength is not covered. They want 25 mg tablets. Could try PA or change Rx to use 25 mg tablets Pharmacy (include location): [facility] UCTION BOW MAKER documented in this encounter Plan of Treatment Upcoming Encounters Date Type Department Care Team (Late st Contact Info) Description 09/14/2024 11:00 AM CDT Admin Visit Department of Oncology in [place], [place] [address] [place] [phone] 09/17/2024 8:00 AM CDT Lab Department of Infusion Therapy in [place], [place] [address] [phone] Jenny Vaca M.D. [address] [phone] 09/17/2024 1:30 PM CDT Office Visit Department of Internal Medicine in [place], [place] [address] [phone] Elissa Luo, Jaime-Hesham., M.S. [address] [phone] 09/18/2024 8:00 AM CDT Clinical Support Department of Oncology in [place], [place] [address] [place] [phone] Blossom Hernandez, M.S.W., L.I.C.S.W. [address] [place] [phone] 09/20/2024 10:00 AM CDT Telemedicine Department of Oncology in [place], [place] [address] [place] [phone] Kerrie Vela M.B., B.Ch., M.D. [address] [place] [phone] 09/24/2024 8:30 AM CDT Lab Department of Oncology in [place], [place] [address] [place] [phone] Kerrie Vela M.B., BForeignChForeign, M.DForeign [address] [place] [phone] 09/24/2024 9:40 AM CDT Office Visit Department of Oncology in [place], [place] [address] [place] [phone] Kerrie Vela M.B., B.ChForeign, M.DForeign [address] [place] [phone] 09/24/2024 10:20 AM CDT Education Department of Oncology in [place], [place] [address] [place] [phone] Kerrie Vela M.B., B.ChForeign, M.DForeign [address] [place] [phone] 09/24/2024 11:30 AM CDT Appointment [facility], [facility], [facility] [address] [place] [phone] Kerrie Vela M.B., B.Ch., M.DForeign [address] [place] [phone] 09/25/2024 8:30 AM CDT Appointment [facility], [facility], [facility] Level [address] [place] [phone] Kerrie Vela M.B., B.Ch., M.D. [address] [place] [phone] 09/26/2024 8:30 AM CDT Appointment [facility], [facility], [facility] [address] [place] [phone] Kerrie Vela M.B., BDuran, M.DForeign [address] [place] [phone] 09/28/2024 11:45 AM CDT Lab Department of Oncology in [place], [place] [address] [place] [phone] Kerrie Vela M.B., B.ChForeign, M.DForeign [address] [place] [phone] 09/28/2024 1:40 PM CDT Office Visit Department of Oncology in [place], [place] [address] [place] [phone] Dawood Ruiz P.A.-C. [address] [place] [phone] 10/01/2024 8:00 AM CDT Appointment [facility], [facility], [facility] [address] [place] [phone] Kerrie Vela M.B., B.ChForeign, M.DForeign [address] [place] [phone] 10/02/2024 8:00 AM CDT Appointment [facility], [facility], [facility] [address] [place] [phone] Kerrie Vela M.B., B.ChForeign, M.DForeign [address] [place] [phone] 10/03/2024 8:00 AM CDT Appointment [facility], [facility], [facility], Lobby Level [address] [place] [address] Kerrie Vela M.B., BDuran, M.Cecelia [address] [place] [phone] 10/10/2024 6:30 AM CDT Lab Department of Oncology in [place], [place] [address] [place] [phone] Kerrie Vela M.B., B.ChForeign, M.DForeign [address] [place] [phone] 10/10/2024 8:20 AM CDT Office Visit Department of Oncology in [place], [place] [address] [place] [phone] Brittney Stuart M.D. [address] [place] [phone] 10/10/2024 12:30 PM CDT Infusion Department of Oncology in [place], [place] [address] [place] [phone] Kerrie Vela M.B., B.Ch., M.D. [address] [place] [phone] 10/12/2024 11:20 AM CDT Office Visit Department of Oncology in [place], [place] [address] [place] [phone] Kerrie Vela M.B., B., M.D. [address] [place] [phone] 10/17/2024 1:00 PM CDT Office Visit Department of Ophthalmology in [place], [place] [address] [place] [address] Tomás Mcbride M.D. [address] [place] [address] 10/23/2024 8:45 AM CDT Lab Department of Oncology in [place], [place] 200 [place] [address] Kerrie Vela M.B., BDuran, M.DForeign [address] [place] [phone] 10/23/2024 11:00 AM CDT Office Visit Department of Oncology in [place], [place] [address] [place] [address] Kerrie Vela M.B., BDuran, M.DForeign [address] [place] [phone] 10/23/2024 11:30 AM CDT Appointment Department of Radiology in [place], [place] [address] [place] [phone] Franny Dutta M.D. [address] [place] [phone] 10/24/2024 7:30 AM CDT Infusion Department of Oncology in [place], [place] [address] [place] [address] Kerrie Vela M.B., B., M.DForeign [address] [place] [phone] 10/24/2024 11:00 AM CDT Appointment Department of Radiation Oncology in [place], [place] [address] [place] [phone] Franny Dutta M.D. [address] [place] [phone] 10/25/2024 11:00 AM CDT Office Visit Department of Oncology in [place], [place] [address] [place] [address] Kerrie Vela M.B., B., M.DForeign [address] [place] [phone] 11/06/2024 7:00 AM CDT Lab Department of Oncology in [place], [place] [address] [place] [address] Kerrie Vela M.B., B.ChForeign, M.DForeign [address] [place] [phone] 11/06/2024 9:00 AM CDT Office Visit Department of Oncology in [place], [place] [address] [place] [phone] Dawood Ruiz P.A.-C. [address] [place] [phone] 11/06/2024 10:00 AM CDT Infusion Department of Oncology in [place], [place] [address] [place] [address] Kerrie Vela M.B., B.Ch., M.D. [address] [place] [phone] 11/20/2024 6:30 AM CDT Lab Department of Laboratory Medicine and Pathology, [facility], in [place], [place] [address] [place] [phone] Kerrie Vela M.B., B.ChForeign, M.DForeign [address] [place] [phone] 11/20/2024 8:20 AM CDT Office Visit Department of Oncology in [place], [place] [address] [place] [phone] Dawood Ruiz P.A.-C. [address] [place] [phone] 11/20/2024 9:00 AM CDT Infusion Department of Oncology in [address] [phone] Kerrie Vela M.B., B.Ch., M.D. [address] [place] [phone] 12/04/2024 8:30 AM CDT Lab Department of Laboratory Medicine and Pathology, [facility] in [address] [phone] Kerrie Vela M.B., B.Ch., M.D. [address] [place] [phone] 12/04/2024 10:20 AM CDT Office Visit Department of Oncology in [address] [phone] Kerrie Vela M.B., B.Ch., M.D. [address] [place] [phone] 12/04/2024 11:00 AM CDT Infusion Department of Oncology in [address] [address] Kerrie Vela M.B., B.Ch., M.D. [address] [place] [phone] documented as of this encounter Visit Diagnoses Not on filedocumented in this encounter Additional Health Concerns Infection Onset Date Last Indicated Resolved Time Protective Environment 07/05/2024 07/05/202409/02 6:26 AM CDT Assessment Noted Time PHQ-9 Depression Total Score: 0 07/04/19 9:20 AM PRODUCTION BOW MAKER documented as of this encounter Care Teams Finish Cleaner Relationship Specialty Start Date End Date Jenny Vaca M.D. [address] [phone] PCP - General 11/11/16 documented as of this encounter
--- OUTSIDE RECORDS SUMMARY | 2024-09-13 12:43 | XMS_ITS | Encounter Summary ---
Author Organization [facility] Address [address] [place] [address] Care Team Providers Care Bindery Production Manager Name Role Phone Jenny Vaca M.D. Primary Care Provider Encounter Details Date Type Department Care Team (Late st Contact Info) Description 03/20/2008 Historical Ophthalmology [facility] Maria Eugenia Cifuentes M.D. [address] [place] [address] Social History Tobacco Use Types Packs/Day Years Used Date Smoking Tobacco: Never Assessed Comments Unknown Sex and Gender Information Value Date Recorded Sex Assigned at Not on file Legal Sex Female 8:27 AM LIME TRIMMER Gender Identity Female 04/06/2017 8:58 AM LIME TRIMMER Sexual Orientation Straight 04/06/2017 8: 58 AM LIME TRIMMER documented as of this encounter Progress Notes * Maria Eugenia Cifuentes M.D. - 03/20/2008 7:42 AM CDT Eye General CHIEF COMPLAINT PDR both eyes HISTORY OF PRESENT ILLNESS This 62 year old female returns for PDR both eyes. The patient describes decreased vision in right eye for the past 1 weeks, which is constant, mild. She notes occasional wavey lines in the right eyesince Tuesday afternoon. She denies flashes, diplopia. Patient denies ocular pain. Patient reports her blood sugars have been unstable and will be going on the insulin pump. Low 45 High 335. 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 #2 CME both eyes s/p preservative-free intravitreal triamcinolone LE 03/16/07 and RE 03/30/07 CME resolved s/p preservative-free intravitreal triamcinolone LE 07/13/07 #3 cataract right eye #4 pseudophakia left eye #5 History of ERM left eye #6 Intravitreal/ Intraretinal hemorrhages, right eye had NVD, despite maximal PRP s/p avastin injection, right eye 12/04: NVD resolved Get FA, right eye first-wide angle lates.OCT, both eyes; colors of nasal retina right eye FA results: right eye: diffuse MA's, leakage from NVE on superior and inferior disc vasculature and inferotemporal arcade; capillary dropout; blocking defect from hemorrhage inferonasal; PRP scars left eye: diffuse MA's, leakage from NVD temporal disc, leakage inferonasal and supra nasal to disc; capillary dropout >temporal macula; diffuse petalloid macular leakge; PRP scars OCT results: right eye: diffuse trace thickening left eye: CME Plan: Needs more PRP OU Plan: PRP right eye today PRP left eye next week with Intravitreal preservative-free triamcinolone DIAGNOSIS #1 PDR both eyes #2 CME both eyes #3 cataract right eye #4 pseudophakia left eye #5 History of ERM left eye #6 Intravitreal/ Intraretinal hemorrhages, right eye CDM Reports - EYEGEN Id: [id number] Status: Fnl documented in this encounter Plan of Treatment Upcoming Encounters Date Type Department Care Team (Late st Contact Info) Description 09/14/2024 11:00 AM CDT Admin Visit Department of Oncology in [place], [place] [address] [place] [address] 09/17/2024 8:00 AM CDT Lab Department of Infusion Therapy in [place], [place] [address] [place] [address] Jenny Vaca M.D. [address] [place] [phone] 09/17/2024 1:30 PM CDT Office Visit Department of Internal Medicine in [place], [place] [address] [place] [address] Elissa Luo P.A.-C., M.S. [address] [place] [address] 09/18/2024 8:00 AM CDT Clinical Support Department of Oncology in [place], [place] [address] [place] [phone] Blossom Hernandez, M.S.W., L.I.C.S.W. [address] [place] [phone] 09/20/2024 10:00 AM CDT Telemedicine Department of Oncology in [place], [place] [address] [place] [phone] Kerrie Vela M.B., B.Ch., M.D. [address] [place] [phone] 09/24/2024 8:30 AM CDT Lab Department of Oncology in [place], [place] [address] [place] [phone] Kerrie Vela M.B., B.Ch., M.D. [address] [place] [phone] 09/24/2024 9:40 AM CDT Office Visit Department of Oncology in [place], [place] [address] [place] [address] Kerrie Vela M.B., B.Ch., M.D. [address] [place] [phone] 09/24/2024 10:20 AM CDT Education Department of Oncology in [place], [place] [address] [place] [phone] Kerrie Vela M.B., BDuran, MPhuc [address] [place] [phone] 09/24/2024 11:30 AM CDT Appointment [facility], [facility], [facility] [address] [place] [phone] Kerrie Vela M.B., Trevor, MPhuc [address] [place] [phone] 09/25/2024 8:30 AM CDT Appointment [facility], [facility], [facility] Level [address] [place] [phone] Kerrie Vela M.B., BForeignChForeign, MPhuc [address] [place] [phone] 09/26/2024 8:30 AM CDT Appointment [facility], [facility], [facility] Level [address] [place] [phone] Kerrie Vela M.B., B.ChForeign, MForeignDForeign [address] [place] [phone] 09/28/2024 11:45 AM CDT Lab Department of Oncology in [place], [place] [address] [place] [phone] Kerrie Vela M.B., B.ChAlin Carrasquillo [address] [place] [phone] 09/28/2024 1:40 PM CDT Office Visit Department of Oncology in [place], [place] [address] [place] [phone] Dawood Ruiz P.A.-C. [address] [place] [phone] 10/01/2024 8:00 AM CDT Appointment [facility], [facility], [facility] [address] [place] [phone] Kerrie Vela M.B., B., MPhuc [address] [place] [phone] 10/02/2024 8:00 AM CDT Appointment [facility], [facility], [facility] [address] [place] [phone] Kerrie Vela M.B., B.ChForeign, MForeignDForeign [address] [place] [phone] 10/03/2024 8:00 AM CDT Appointment [facility], [facility], [facility] [address] [place] [phone] Kerrie Vela M.B., B.ChForeign, M.DForeign [address] [place] [phone] 10/10/2024 6:30 AM CDT Lab Department of Oncology in [place], [place] [address] [place] [phone] Kerrie Vela M.B., B.ChForeign, M.Cecelia [address] [place] [phone] 10/10/2024 8:20 AM CDT Office Visit Department of Oncology in [place], [place] [address] [place] [phone] Brittney Stuart M.D. [address] [place] [phone] 10/10/2024 12:30 PM CDT Infusion Department of Oncology in [place], [place] [address] [place] [phone] Kerrie Vela M.B., B.Ch., M.D. [address] [place] [phone] 10/12/2024 11:20 AM CDT Office Visit Department of Oncology in [place], [place] [address] [place] [phone] Kerrie Vela M.B., B.Ch., M.D. [address] [place] [phone] 10/17/2024 1:00 PM CDT Office Visit Department of Ophthalmology in [place], [place] [address] [place] [phone] Tomás Mcbride M.D. [address] [place] [phone] 10/23/2024 8:45 AM CDT Lab Department of Oncology in [place], [place] [address] [place] [phone] Kerrie Vela M.B., B.Ch., M.D. [address] [place] [phone] 10/23/2024 11:00 AM CDT Office Visit Department of Oncology in [place], [place] [address] [place] [address] Kerrie Vela M.B., BDuran, MPhuc [address] [place] [phone] 10/23/2024 11:30 AM CDT Appointment Department of Radiology in [place], [place] [address] [place] [address] Franny Dutta M.D. [address] [place] [phone] 10/24/2024 7:30 AM CDT Infusion Department of Oncology in [place], [place] [address] [place] [address] Kerrie Vela M.B., BDuran, MPhuc [address] [place] [phone] 10/24/2024 11:00 AM CDT Appointment Department of Radiation Oncology in [place], [place] [address] [place] [phone] Franny Dutta M.D. [address] [place] [phone] 10/25/2024 11:00 AM CDT Office Visit Department of Oncology in [place], [place] [address] [place] [phone] Kerrie Vela M.B., B., M.DForeign [address] [place] [phone] 11/06/2024 7:00 AM CDT Lab Department of Oncology in [place], [place] [address] [place] [address] Kerrie Vela M.B., B.ChForeign, M.DForeign [address] [place] [phone] 11/06/2024 9:00 AM CDT Office Visit Department of Oncology in [place], [place] [address] [place] [address] Dawood Ruiz, P.A.-CForeign [address] [place] [phone] 11/06/2024 10:00 AM CDT Infusion Department of Oncology in [place], [place] [address] [place] [phone] Kerrie Vela M.B., B.ChForeign, M.DForeign [address] [place] [phone] 11/20/2024 6:30 AM CDT Lab Department of Laboratory Medicine and Pathology, [facility] in [place], [place] [address] [place] [address] Kerrie Vela M.B., B.Ch., M.D. [address] [place] [phone] 11/20/2024 8:20 AM CDT Office Visit Department of Oncology in [place], [place] [address] [place] [phone] Dawood Ruiz, P.A.-CForeign [address] [place] [phone] 11/20/2024 9:00 AM CDT Infusion Department of Oncology in [place], [place] [address] [place] [phone] Kerrie Vela M.B., B.ChForeign, M.DForeign [address] [place] [phone] 12/04/2024 8:30 AM CDT Lab Department of Laboratory Medicine and Pathology, [facility], in [place], [place] [address] [place] [phone] Kerrei Vela M.B., B., M.D. [address] [place] [phone] 12/04/2024 10:20 AM CDT Office Visit Department of Oncology in [place], [place] [address] [place] [phone] Kerrie Vela M.B., BDuran, M.D. [address] [place] [phone] 12/04/2024 11:00 AM CDT Infusion Department of Oncology in [place], [place] [address] [place] [phone] Kerrie Vela M.B., B.Ch., M.D. [address] [place] [phone] documented as of this encounter Visit Diagnoses Not on filedocumented in this encounter Additional Health Concerns Infection Onset Date Last Indicated Resolved Time COVID19 Pending 09/25/2019 09/25/2019 09/26/2019 1 :51 AM CDT COVID19 Pending 11/08/2019 11/08/2019 11/09/2019 1 :40 AM CDT COVID19 Pending 12/20/2019 12/20/2019 12/21/2019 1 1:51 AM CDT Protective Environment 02/21/2023 02/21/202305/08 5:44 AM LIME TRIMMER Protective Environment 05/11/2023 05/11/202306/13 6:17 AM LIME TRIMMER Protective Environment 06/27/2023 06/27/202310/15 5:30 AM CDT Protective Environment 10/28/2023 10/28/202306/25 5:58 AM LIME TRIMMER Protective Environment 07/05/2024 07/05/202409/02 6:26 AM CDT documented as of this encounter Care Teams Bindery Production Manager Relationship Specialty Start Date End Date Jenny Vaca M.D. [address] [place] [phone] PCP - General 11/11/16 documented as of this encounter
--- OUTSIDE RECORDS SUMMARY | 2024-09-13 12:43 | XMS_ITS | Encounter Summary ---
Author Organization [facility] Address [address] [place] [address] Care Team Providers Care Sheet Roller Operator Name Role Phone Jenny Vaca M.D. Primary Care Provider Encounter Details Date Type Department Care Team (Late st Contact Info) Description 11/27/2008 Historical Ophthalmology RST OPH Maria Eugenia Cifuentes M.D. [address] [place] [address] Social History Tobacco Use Types Packs/Day Years Used Date Smoking Tobacco: Never Assessed Comments Unknown Sex and Gender Information Value Date Recorded Sex Assigned at Not on file Legal Sex Female 8:27 AM COUNTER HELP Gender Identity Female 04/06/2017 8:58 AM COUNTER HELP Sexual Orientation Straight 04/06/2017 8: 58 AM COUNTER HELP documented as of this encounter Progress Notes * Maria Eugenia Cifuentes M.D. - 11/27/2008 7:17 AM CDT Eye General CHIEF COMPLAINT blurred vision in the lefy eye for one month, left HISTORY OF PRESENT ILLNESS Patient returns for follow up vitreous hemorrhage. The patient describes blurred vision in left eyefor the past 2 months, which is constant, mild. Patient denies flashes. Patient has noticed increased floaters, left eye, past couple months. Patient denies flashes and eye pain. Her supervisor pipeline performed yag capsulotomy 2 weeks ago and was told that she had some new bleeding and swelling in the left eye. 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 #2 CME both eyes s/p preservative-free intravitreal triamcinolone LE 03/16/07 and RE 03/30/07 CME resolved s/p preservative-free intravitreal triamcinolone LE 07/13/07 Today: recurrent CME, left eye get OCT macula, both eyes OCt today: Right eye: shows trace cystic changes Left eye: shows massive CME. ERM #3 Cataract right eye #4 Pseudophakia left eye #5 History of ERM left eye #6 Intravitreal/ Intraretinal hemorrhages, right eye had NVD, despite maximal PRP s/p avastin injection, right eye 12/04: NVD resolved PPVx Rt 05/06 Plan: recommend preservative-free intravitreal triamcinolone (triescence), left eye today. RTC 6 weeks with OCT left eye DIAGNOSIS #1 PDR both eyes #2 CME both eyes #3 Cataract right eye #4 Pseudophakia left eye #5 History of ERM left eye #6 Intravitreal/ Intraretinal hemorrhages, right eye CDM Reports - EYEGEN Id: [id number] Status: Fnl documented in this encounter Plan of Treatment Upcoming Encounters Date Type Department Care Team (Late st Contact Info) Description 09/14/2024 11:00 AM CDT Admin Visit Department of Oncology in [place], [place] [address] [place] [address] 09/17/2024 8:00 AM CDT Lab Department of Infusion Therapy in [place], [place] [address] [place] [phone] Jenny Vaca M.D. [address] [place] [address] 09/17/2024 1:30 PM CDT Office Visit Department of Internal Medicine in [place], [place] [address] [place] [address] Elissa Luo P.A.-C., M.S. [address], [place] [phone] 09/18/2024 8:00 AM CDT Clinical Support Department of Oncology in [place], [place] [address] [place] [phone] Blossom Hernandez M.S.W., L.I.C.S.W. [address] [place] [phone] 09/20/2024 10:00 AM CDT Telemedicine Department of Oncology in [place], [place] [address] [place] [phone] Kerrie Vela M.B., B.Ch., M.D. [address] [place] [phone] 09/24/2024 8:30 AM CDT Lab Department of Oncology in [address] [phone] Kerrie Vela M.B., B.Ch., M.D. [address] [place] [phone] 09/24/2024 9:40 AM CDT Office Visit Department of Oncology in [place], [place] [address] [place] [phone] Kerrie Vela M.B., B.Ch., M.D. [address] [place] [phone] 09/24/2024 10:20 AM CDT Education Department of Oncology in [address] [phone] Kerrie Vela M.B., BDuran, M.DForeign [address] [place] [phone] 09/24/2024 11:30 AM CDT Appointment [facility], [facility], [facility] [address] [place] [phone] Kerrie Vela M.B., BDuran, M.DForeign [address] [place] [phone] 09/25/2024 8:30 AM CDT Appointment [facility], [facility], [facility] [address] [place] [address] Kerrie Vela M.B., BDuran, M.DForeign [address] [place] [phone] 09/26/2024 8:30 AM CDT Appointment [facility], [facility], [facility] [address] [place] [phone] Kerrie Vela M.B., BDuran, M.DForeign [address] [place] [phone] 09/28/2024 11:45 AM CDT Lab Department of Oncology in [place], [place] [address] [place] [phone] Kerrie Vela M.B., B.ChForeign, M.DForeign [address] [place] [phone] 09/28/2024 1:40 PM CDT Office Visit Department of Oncology in [place], [place] [address] [place] [phone] Dawood Ruiz P.A.-C. [address] [place] [phone] 10/01/2024 8:00 AM CDT Appointment [facility], [facility], [facility] [address] [place] [phone] Kerrie Vela M.B., BForeignChForeign, M.DForeign [address] [place] [phone] 10/02/2024 8:00 AM CDT Appointment [facility], [facility], [facility] [address] [place] [phone] Kerrie Vela M.B., BForeignChForeign, M.DForeign [address] [place] [phone] 10/03/2024 8:00 AM CDT Appointment [facility], [facility], [facility] [address] [place] [phone] Kerrie Vela M.B., B.ChForeign, M.DForeign [address] [place] [phone] 10/10/2024 6:30 AM CDT Lab Department of Oncology in [place], [place] [address] [place] [phone] Kerrie Vela M.B., B.ChForeign, M.D. [address] [place] [phone] 10/10/2024 8:20 AM CDT Office Visit Department of Oncology in [place], [place] [address] [place] [phone] Brittney Stuart M.D. [address] [place] [phone] 10/10/2024 12:30 PM CDT Infusion Department of Oncology in [place], [place] [address] [place] [phone] Kerrie Vela M.B., B.ChForeign, M.DForeign [address] [place] [phone] 10/12/2024 11:20 AM CDT Office Visit Department of Oncology in [address] [phone] Kerrie Vela M.B., B., M.DForeign [address] [place] [phone] 10/17/2024 1:00 PM CDT Office Visit Department of Ophthalmology in [place], [place] [address] [place] [phone] Tomás Mcbride M.D. [address] [place] [phone] 10/23/2024 8:45 AM CDT Lab Department of Oncology in [address] [phone] Kerrie Vela M.B., B.ChForeign, M.D. [address] [place] [phone] 10/23/2024 11:00 AM CDT Office Visit Department of Oncology in [address] [phone] Kerrie Vela M.B., B.ChForeign, M.D. [address] [place] [phone] 10/23/2024 11:30 AM CDT Appointment Department of Radiology in [place], [place] [address] [place] [address] Franny Dutta M.D. [address] [place] [phone] 10/24/2024 7:30 AM CDT Infusion Department of Oncology in [place], [place] [address] [place] [phone] Kerrie Vela M.B., B., M.DForeign [address] [place] [phone] 10/24/2024 11:00 AM CDT Appointment Department of Radiation Oncology in [place], [place] [address] [place] [phone] Franny Dutta M.D. [address] [place] [phone] 10/25/2024 11:00 AM CDT Office Visit Department of Oncology in [place], [place] [address] [place] [phone] Kerrie Vela M.B., B.ChForeign, M.DForeign [address] [place] [phone] 11/06/2024 7:00 AM CDT Lab Department of Oncology in [place], [place] [address] [place] [phone] Kerrie Vela M.B., B., M.D. [address] [place] [phone] 11/06/2024 9:00 AM CDT Office Visit Department of Oncology in [place], [place] [address] [place] [address] Dawood Ruiz P.A.-CForeign [address] [place] [phone] 11/06/2024 10:00 AM CDT Infusion Department of Oncology in [place], [place] [address] [place] [address] Kerrie Vela M.B., B.ChForeign, M.D. [address] [place] [phone] 11/20/2024 6:30 AM CDT Lab Department of Laboratory Medicine and Pathology, [place], [place] [address] [place] [address] Kerrie Vela M.B., B.Ch., M.D. [address] [place] [phone] 11/20/2024 8:20 AM CDT Office Visit Department of Oncology in [place], [place] [address] [place] [address] Dawood Ruiz P.A.-CForeign [address] [place] [phone] 11/20/2024 9:00 AM CDT Infusion Department of Oncology in [place], [place] [address] [place] [phone] Kerrie Vela M.B., B.Ch., M.D. [address] [place] [phone] 12/04/2024 8:30 AM CDT Lab Department of Laboratory Medicine and Pathology, [facility] in [place], [place] [address] [place] [address] Kerrie Vela M.B., Trevor, MPhuc [address] [place] [phone] 12/04/2024 10:20 AM CDT Office Visit Department of Oncology in [place], [place] [address] [place] [phone] Kerrie Vela M.B., Trevor, Alin [address] [place] [phone] 12/04/2024 11:00 AM CDT Infusion Department of Oncology in [place], [place] [address] [place] [phone] Kerrie Vela M.B., Trevor, Alin [address] [place] [phone] documented as of this encounter Visit Diagnoses Not on filedocumented in this encounter Additional Health Concerns Infection Onset Date Last Indicated Resolved Time COVID19 Pending 09/25/2019 09/25/2019 09/26/2019 1 :51 AM CDT COVID19 Pending 11/08/2019 11/08/2019 11/09/2019 1 :40 AM CDT COVID19 Pending 12/20/2019 12/20/2019 12/21/2019 1 1:51 AM CDT Protective Environment 02/21/2023 02/21/202305/08 5:44 AM COUNTER HELP Protective Environment 05/11/2023 05/11/202306/13 6:17 AM COUNTER HELP Protective Environment 06/27/2023 06/27/202310/15 5:30 AM CDT Protective Environment 10/28/2023 10/28/202306/25 5:58 AM COUNTER HELP Protective Environment 07/05/2024 07/05/202409/02 6:26 AM CDT documented as of this encounter Care Teams Sheet Roller Operator Relationship Specialty Start Date End Date Jenny Vaca M.D. [address] [place] [phone] PCP - General 11/11/16 documented as of this encounter
--- OUTSIDE RECORDS SUMMARY | 2024-09-13 12:43 | XMS_ITS | Encounter Summary ---
Author Organization [facility] Address [address] [place] [address] Care Team Providers Care Dehydrator Name Role Phone Jenny Vaca M.D. Primary Care Provider [phone] Encounter Details Date Type Department Care Team (Late st Contact Info) Description 10/17/2015 Historical Ophthalmology RST OPH Richard Wright M.D., M.S. [address] [place] [address] Social History Tobacco Use Types Packs/Day Years Used Date Smoking Tobacco: Never Assessed Comments Unknown Sex and Gender Information Value Date Recorded Sex Assigned at Not on file Legal Sex Female 8:27 AM CAD INTERN Gender Identity Female 04/06/2017 8:58 AM CAD INTERN Sexual Orientation Straight 04/06/2017 8: 58 AM CAD INTERN documented as of this encounter Progress Notes * Richard Wright M.D. - 10/17/2015 9:49 AM CDT Eye General CHIEF COMPLAINT Follow up Steroid induced glaucoma-taped PF drops HISTORY OF PRESENT ILLNESS Patient is a 70 year old female here today for Follow up Steroid induced glaucoma-taped PF drops. Patient has tapered PF drops to one drop daily both eyes. Pt feels her Uveitis is back after decreasing her Pred Forte drops. Patient doesn't think vision is as good as it was; especially with the right eye. Unreliable vision; right eye; x 3 days; slowly progressive; symptoms are mild. Light flashes alone; right eye; x many years; occasionally more noticable at night when she is going to bed. Floaters alone; right eye; x several months; occasionally; usually its a black ring around a white centerand usually only 1; this morning it was 2 that were together. Patient is Type 2 diabetic. Last A1c: 7.1; 10/16/15. Blood sugar reading this morning; 141. SDM: Patient decreased PF to once daily in both eyes on 10/04/15 and developed recurrent symptoms shortly therafter and saw Dr. Mcbride on 10/07/15 who felt that there was correlated increased inflammation. She called Dr. Stuart and initially increased PF to BID/daily alternating for 3 days - then has been back on once daily for the last week (since 10/10/15). She has continued on Lumigan, Cosopt, and Brimonidine. WMS: Her right eye does not feel any worse than when she saw Dr. Mcbride on 10/07/15. She could tell that some inflammation was there. Now her eye feels about the same. (She increased to BID alternatingwith daily, returned to daily as of a week ago 10/10/15). Her eye has not felt any worse since decreasing back to daily. IMPRESSION / REPORT / PLAN #1 Steroid [...] PRP related instead of glaucoma IOP acceptable on PF 1x - however, appears to have increased AC cells Continue current medications f/u in a few months with AJS WMS: Very low grade AC cell OD, but symptomatically stable and IOP OK per Dr. Wright. If she can manage to remain on prednisolone daily OD, then hopefully her IOP will be OK. She has decided to delay her trip to [place] for now. I will see her again in about a month to reassess. if she has symptoms of recurrent inflammation before her next appt, she should let me know. Ideally I would like to examine her myself, but it would be okay to see Dr. Mcbride if she cannot come to [place] or I am not available. Otherwise I will see her in a month on 11/17/15. 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 [place]) 02/2010 labs: [...] eyes 09/15/07 - left ?late 2010 or 2012 - right (Dr. Elliott) 17 Jul 2015 [...] multiple Avastin CDM Reports - EYEGEN Id: [id number] Status: Fnl documented in this encounter Plan of Treatment Upcoming Encounters Date Type Department Care Team (Late st Contact Info) Description 09/14/2024 11:00 AM CDT Admin Visit Department of Oncology in [place], [place] [address] [place] [phone] 09/17/2024 8:00 AM CDT Lab Department of Infusion Therapy in [place], [place] [address] [phone] Jenny Vaca M.D. [address] [phone] 09/17/2024 1:30 PM CDT Office Visit Department of Internal Medicine in [place], [place] [address] [phone] Elissa Luo P.A.-Hesham., M.S. [address] [phone] 09/18/2024 8:00 AM CDT Clinical Support Department of Oncology in [address] [phone] Blossom Hernandez M.S.W., L.I.C.S.W. [address] [place] [phone] 09/20/2024 10:00 AM CDT Telemedicine Department of Oncology in [place], [place] [address] [place] [phone] Kerrie Vela M.B., B.Ch., M.D. [address] [place] [phone] 09/24/2024 8:30 AM CDT Lab Department of Oncology in [place], [place] [address] [place] [phone] Kerrie Vela M.B., BDuran, M.DForeign [address] [place] [phone] 09/24/2024 9:40 AM CDT Office Visit Department of Oncology in [place], [place] [address] [place] [phone] Kerrie Vela M.B., BForeignChForeign, M.DForeign [address] [place] [phone] 09/24/2024 10:20 AM CDT Education Department of Oncology in [place], [place] [address] [place] [phone] Kerrie Vela M.B., BDuran, M.DForeign [address] [place] [phone] 09/24/2024 11:30 AM CDT Appointment [facility], [facility], [facility] [address] [place] [phone] Kerrie Vela M.B., BDuran, M.DForeign [address] [place] [phone] 09/25/2024 8:30 AM CDT Appointment [facility], [facility], [facility] [address] [place] [address] Kerrie Vela M.B., B.ChForeign, M.DForeign [address] [place] [phone] 09/26/2024 8:30 AM CDT Appointment [facility], [facility], [facility] [address] [place] [phone] Kerrie Vela M.B., BDuran, MForeignDForeign [address] [place] [phone] 09/28/2024 11:45 AM CDT Lab Department of Oncology in [place], [place] [address] [place] [phone] Kerrie Vela M.B., BForeignChForeign, M.DForeign [address] [place] [phone] 09/28/2024 1:40 PM CDT Office Visit Department of Oncology in [place], [place] [address] [place] [phone] Dawood Ruiz P.A.-C. [address] [place] [phone] 10/01/2024 8:00 AM CDT Appointment [facility], [facility], [facility] [address] [place] [phone] Kerrie Vela M.B., B., M.DForeign [address] [place] [phone] 10/02/2024 8:00 AM CDT Appointment [facility], [facility], [facility] [address] [place] [address] Kerrie Vela M.B., B.Ch., M.DForeign [address] [place] [phone] 10/03/2024 8:00 AM CDT Appointment [facility], [facility], [facility] [address] [place] [phone] Kerrie Vela M.B., B., M.DForeign [address] [place] [phone] 10/10/2024 6:30 AM CDT Lab Department of Oncology in [place], [place] [address] [place] [phone] Kerrie Vela M.B., B.ChForeign, M.DForeign [address] [place] [phone] 10/10/2024 8:20 AM CDT Office Visit Department of Oncology in [place], [place] [address] [place] [phone] Brittney Stuart M.D. [address] [place] [phone] 10/10/2024 12:30 PM CDT Infusion Department of Oncology in [place], [place] [address] [place] [phone] Kerrie Vela M.B., B.ChForeign, M.DForeign [address] [place] [phone] 10/12/2024 11:20 AM CDT Office Visit Department of Oncology in [place], [place] [address] [place] [phone] Kerrie Vela M.B., B., M.DForeign [address] [place] [phone] 10/17/2024 1:00 PM CDT Office Visit Department of Ophthalmology in [place], [place] [address] [place] [address] Tomás Mcbride M.D. [address] [place] [address] 10/23/2024 8:45 AM CDT Lab Department of Oncology in [place], [place] [address] [place] [address] Kerrie Vela M.B., BDuran, MPhuc [address] [place] [phone] 10/23/2024 11:00 AM CDT Office Visit Department of Oncology in [place], [place] [address] [place] [phone] Kerrie Vela M.B., BDuran, MPhuc [address] [place] [phone] 10/23/2024 11:30 AM CDT Appointment Department of Radiology in [place], [place] [address] [place] [address] Franny Dutta M.D. [address] [place] [phone] 10/24/2024 7:30 AM CDT Infusion Department of Oncology in [place], [place] [address] [place] [phone] Kerrie Vela M.B., B., MForeignDForeign [address] [place] [phone] 10/24/2024 11:00 AM CDT Appointment Department of Radiation Oncology in [place], [place] [address] [place] [phone] Franny Dutta M.D. [address] [place] [phone] 10/25/2024 11:00 AM CDT Office Visit Department of Oncology in [place], [place] [address] [place] [address] Kerrie Vela M.B., BDuran, MPhuc [address] [place] [phone] 11/06/2024 7:00 AM CDT Lab Department of Oncology in [place], [place] [address] [place] [address] Kerrie Vela M.B., BDuran, M.DForeign [address] [place] [phone] 11/06/2024 9:00 AM CDT Office Visit Department of Oncology in [place], [place] [address] [place] [address] Dawood Ruiz, P.A.-CForeign [address] [place] [phone] 11/06/2024 10:00 AM CDT Infusion Department of Oncology in [place], [place] [address] [place] [address] Kerrie Vela M.B., BDuran, M.D. [address] [place] [phone] 11/20/2024 6:30 AM CDT Lab Department of Laboratory Medicine and Pathology, [facility], in [place], [place] [address] [place] [phone] Kerrie Vela M.B., B., M.DForeign [address] [place] [phone] 11/20/2024 8:20 AM CDT Office Visit Department of Oncology in [place], [place] [address] [place] [address] CassDawood robison P.A.-C. [address] [place] [phone] 11/20/2024 9:00 AM CDT Infusion Department of Oncology in [place], [place] [address] [place] [phone] Kerrie Vela M.B., B.Ch., M.DForeign [address] [place] [phone] 12/04/2024 8:30 AM CDT Lab Department of Laboratory Medicine and Pathology, [facility] in [address] [phone] Kerrie Vela M.B., B.Ch., M.D. [address] [place] [phone] 12/04/2024 10:20 AM CDT Office Visit Department of Oncology in [address] [phone] Kerrie Vela M.B., B.Ch., M.D. [address] [place] [phone] 12/04/2024 11:00 AM CDT Infusion Department of Oncology in [address] [phone] Kerrie Vela M.B., B.Ch., M.D. [address] [place] [phone] documented as of this encounter Visit Diagnoses Not on filedocumented in this encounter Additional Health Concerns Infection Onset Date Last Indicated Resolved Time COVID19 Pending 09/25/2019 09/25/2019 09/26/2019 1 :51 AM CDT COVID19 Pending 11/08/2019 11/08/2019 11/09/2019 1 :40 AM CDT COVID19 Pending 12/20/2019 12/20/2019 12/21/2019 1 1:51 AM CDT Protective Environment 02/21/2023 02/21/202305/08 5:44 AM CAD INTERN Protective Environment 05/11/2023 05/11/202306/13 6:17 AM CAD INTERN Protective Environment 06/27/2023 06/27/202310/15 5:30 AM CDT Protective Environment 10/28/2023 10/28/202306/25 5:58 AM CAD INTERN Protective Environment 07/05/2024 07/05/202409/02 6:26 AM CDT Assessment Noted Time PHQ-9 Depression Total Score: 0 08/01/19 15 8:33 AM CAD INTERN documented as of this encounter Care Teams Dehydrator Relationship Specialty Start Date End Date Jenny Vaca M.D. [address] [place] [phone] PCP - General 11/11/16 documented as of this encounter
--- OUTSIDE RECORDS SUMMARY | 2024-09-13 12:43 | XMS_ITS | Encounter Summary ---
Author Organization [facility] Address [address] [place] [address] Care Team Providers Care Vessel Slagman Name Role Phone Jenny Vaca M.D. Primary Care Provider [phone] Encounter Details Date Type Department Care Team (Late st Contact Info) Description 10/01/2008 Historical Ophthalmology RST OPH Maria Eugenia Cifuentes M.D. [address] [place] [phone] Social History Tobacco Use Types Packs/Day Years Used Date Smoking Tobacco: Never Assessed Comments Unknown Sex and Gender Information Value Date Recorded Sex Assigned at Not on file Legal Sex Female 8:27 AM RURAL SERVICE ENGINEER Gender Identity Female 04/06/2017 8:58 AM RURAL SERVICE ENGINEER Sexual Orientation Straight 04/06/2017 8: 58 AM RURAL SERVICE ENGINEER documented as of this encounter Progress Notes * Maria Eugenia Cifuentes M.D. - 10/01/2008 9:37 AM CDT Eye General CHIEF COMPLAINT Follow up after injection lt eye HISTORY OF PRESENT ILLNESS Patient is here for a follow up after Triesence Injection in left eye 07/08. Patient has new glassesand states she is still having trouble with reading. Patient denies ocular pain, flashes of lights,floaters and diplopia. Diabetic for 5+ years will test 6-7 times a day. 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 [address] [phone] 09/17/2024 1:30 PM CDT Office Visit Department of Internal Medicine in [place], [place] [address] [place] [phone] Elissa Luo P.A.-Hesham., M.S. [address] [phone] 09/18/2024 8:00 AM CDT Clinical Support Department of Oncology in [place], [place] [address] [place] [phone] Blossom Hernandez M.SDeep., L.I.C.S.W. [address] [place] [phone] 09/20/2024 10:00 AM CDT Telemedicine Department of Oncology in [place], [place] [address] [place] [phone] Kerrie Vela M.B., B.ChForeign, M.D. [address] [place] [phone] 09/24/2024 8:30 AM CDT Lab Department of Oncology in [address] [phone] Kerrie Vela M.B., B.Ch., M.D. [address] [place] [phone] 09/24/2024 9:40 AM CDT Office Visit Department of Oncology in [address] [phone] Kerrie Vlea M.B., B.Ch., M.D. [address] [place] [phone] 09/24/2024 10:20 AM CDT Education Department of Oncology in [address] [address] Kerrie Vela M.B., B.Ch., M.D. [address] [place] [phone] 09/24/2024 11:30 AM CDT Appointment [facility], [facility], [facility] [address] [place] [phone] Kerrie Vela M.B., B.ChForeign, M.DForeign [address] [place] [phone] 09/25/2024 8:30 AM CDT Appointment [facility], [facility], [facility] [address] [place] [phone] Kerrie Vela M.B., BForeignChForeign, M.D. [address] [place] [phone] 09/26/2024 8:30 AM CDT Appointment [facility], [facility], [facility] [address] [place] [phone] Kerrie Vela M.B., B.ChForeign, M.DForeign [address] [place] [phone] 09/28/2024 11:45 AM CDT Lab Department of Oncology in [place], [place] [address] [place] [phone] Kerrie Vela M.B., B.Ch., M.D. [address] [place] [phone] 09/28/2024 1:40 PM CDT Office Visit Department of Oncology in [place], [place] [address] [place] [phone] Dawood Ruiz P.A.-C. [address] [place] [phone] 10/01/2024 8:00 AM CDT Appointment [facility], [facility], [facility] [address] [place] [phone] Kerrie Vela M.B., BDuran, MPhuc [address] [place] [phone] 10/02/2024 8:00 AM CDT Appointment [facility], [facility], [facility] [address] [place] [address] Kerrie Vela M.B., BDuran, M.DForeign [address] [place] [phone] 10/03/2024 8:00 AM CDT Appointment [facility], [facility], [facility] [address] [place] [address] Kerrie Vela M.B., B., M.DForeign [address] [place] [phone] 10/10/2024 6:30 AM CDT Lab Department of Oncology in [place], [place] [address] [place] [phone] Kerrie Vela M.B., B.ChForeign, M.DForeign [address] [place] [phone] 10/10/2024 8:20 AM CDT Office Visit Department of Oncology in [place], [place] [address] [place] [phone] Brittney Stuart M.D. [address] [place] [phone] 10/10/2024 12:30 PM CDT Infusion Department of Oncology in [place], [place] [address] [place] [phone] Kerrie Vela M.B., BDuran, M.Cecelia [address] [place] [phone] 10/12/2024 11:20 AM CDT Office Visit Department of Oncology in [place], [place] [address] [place] [phone] Kerrie Vela M.B., B.ChForeign, M.DForeign [address] [place] [phone] 10/17/2024 1:00 PM CDT Office Visit Department of Ophthalmology in [place], [place] [address] [place] [phone] Tomás Mcbride M.D. [address] [place] [phone] 10/23/2024 8:45 AM CDT Lab Department of Oncology in [address] [phone] Kerrie Vela M.B., B.ChForeign, M.DForeign [address] [place] [phone] 10/23/2024 11:00 AM CDT Office Visit Department of Oncology in [place], [place] [address] [place] [phone] Kerrie Vela M.B., B., M.D. [address] [place] [phone] 10/23/2024 11:30 AM CDT Appointment Department of Radiology in [place], [place] [address] [place] [phone] Franny Dutta M.D. [address] [place] [phone] 10/24/2024 7:30 AM CDT Infusion Department of Oncology in [place], [place] [address] [place] [phone] Kerrie Vela M.B., Trevor, MPhuc [address] [place] [phone] 10/24/2024 11:00 AM CDT Appointment Department of Radiation Oncology in [place], [place] [address] [place] [phone] Franny Dutta M.D. [address] [place] [phone] 10/25/2024 11:00 AM CDT Office Visit Department of Oncology in [place], [place] [address] [place] [phone] Kerrie Vela M.B., BDuran, M.DForeign [address] [place] [phone] 11/06/2024 7:00 AM CDT Lab Department of Oncology in [place], [place] [address] [place] [phone] eKrrie Vela M.B., B., M.DForeign [address] [place] [phone] 11/06/2024 9:00 AM CDT Office Visit Department of Oncology in [place], [place] [address] [place] [phone] Dawood Ruiz P.A.-C. [address] [place] [phone] 11/06/2024 10:00 AM CDT Infusion Department of Oncology in [place], [place] [address] [place] [phone] Kerrie Vela M.B., BDuran, M.DForeign [address] [place] [phone] 11/20/2024 6:30 AM CDT Lab Department of Laboratory Medicine and Pathology, [facility] in [place], [place] [address] [place] [phone] Kerrie Vela M.B., BDuran, M.DForeign [address] [place] [phone] 11/20/2024 8:20 AM CDT Office Visit Department of Oncology in [address] [phone] Dawood Ruiz P.A.-C. [address] [place] [phone] 11/20/2024 9:00 AM CDT Infusion Department of Oncology in [address] [phone] Kerrie Vela M.B., B.Ch., M.DForeign [address] [place] [phone] 12/04/2024 8:30 AM CDT Lab Department of Laboratory Medicine and Pathology, [facility], in [place], [place] [address] [place] [phone] Kerrie Vela M.B., B.Ch., M.DForeign [address] [place] [phone] 12/04/2024 10:20 AM CDT Office Visit Department of Oncology in [place], [place] [address] [place] [address] Kerrie Vela M.B., Trevor, MPhuc [address] [place] [phone] 12/04/2024 11:00 AM CDT Infusion Department of Oncology in [place], [place] [address] [place] [address] Kerrie Vela M.B., Trevor, MPhuc [address] [place] [phone] documented as of this encounter Visit Diagnoses Not on filedocumented in this encounter Additional Health Concerns Infection Onset Date Last Indicated Resolved Time COVID19 Pending 09/25/2019 09/25/2019 09/26/2019 1 :51 AM CDT COVID19 Pending 11/08/2019 11/08/2019 11/09/2019 1 :40 AM CDT COVID19 Pending 12/20/2019 12/20/2019 12/21/2019 1 1:51 AM CDT Protective Environment 02/21/2023 02/21/202305/08 5:44 AM RURAL SERVICE ENGINEER Protective Environment 05/11/2023 05/11/202306/13 6:17 AM RURAL SERVICE ENGINEER Protective Environment 06/27/2023 06/27/202310/15 5:30 AM CDT Protective Environment 10/28/2023 10/28/202306/25 5:58 AM RURAL SERVICE ENGINEER Protective Environment 07/05/2024 07/05/202409/02 6:26 AM CDT documented as of this encounter Care Teams Vessel Slagman Relationship Specialty Start Date End Date Jenny Vaca M.D. [address] [place] [phone] PCP - General 11/11/16 documented as of this encounter
--- OUTSIDE RECORDS SUMMARY | 2024-09-13 12:43 | XMS_ITS | Encounter Summary ---
Author Organization [facility] Address [address] [place] [address] Care Team Providers Care Firer Retort Name Role Phone Jenny Vaca M.D. Primary Care Provider [phone] Encounter Details Date Type Department Care Team (Late st Contact Info) Description 04/23/2008 Historical Ophthalmology RST OPH Maria Eugenia Cifuentes M.D. [address] [place] [phone] Social History Tobacco Use Types Packs/Day Years Used Date Smoking Tobacco: Never Assessed Comments Unknown Sex and Gender Information Value Date Recorded Sex Assigned at Not on file Legal Sex Female 8:27 AM STEAMFITTER APPRENTICE Gender Identity Female 04/06/2017 8:58 AM STEAMFITTER APPRENTICE Sexual Orientation Straight 04/06/2017 8: 58 AM STEAMFITTER APPRENTICE documented as of this encounter Progress Notes * Maria Eugenia Cifuentes M.D. - 04/23/2008 8:31 AM CST Eye Postoperative MULTI-VISIT DOCUMENT This document contains multiple patient visits and is available for review in Document Viewer. CDM Reports - EYEPO Id: [id number] Status: Fnl documented in this encounter Plan of Treatment Upcoming Encounters Date Type Department Care Team (Late st Contact Info) Description 09/14/2024 11:00 AM CDT Admin Visit Department of Oncology in [place], [place] [address] [place] [phone] 09/17/2024 8:00 AM CDT Lab Department of Infusion Therapy in [place], [place] [address] [phone] Jenny Vaca M.D. [address] [phone] 09/17/2024 1:30 PM CDT Office Visit Department of Internal Medicine in [place], [place] [address] [phone] Elissa Luo P.A.-C., M.S. [address] [address] 09/18/2024 8:00 AM CDT Clinical Support Department of Oncology in [place], [place] [address] [place] [phone] Blossom Hernandez M.S.W., L.I.C.S.W. [address] [place] [phone] 09/20/2024 10:00 AM CDT Telemedicine Department of Oncology in [place], [place] [address] [place] [phone] Kerrie Vela M.B., B.Ch., M.D. [address] [place] [phone] 09/24/2024 8:30 AM CDT Lab Department of Oncology in [place], [place] [address] [place] [phone] Kerrie Vela M.B., BDuran, MPhuc [address] [place] [phone] 09/24/2024 9:40 AM CDT Office Visit Department of Oncology in [place], [place] [address] [place] [phone] Kerrie Vela M.B., BForeignChForeign, M.DForeign [address] [place] [phone] 09/24/2024 10:20 AM CDT Education Department of Oncology in [place], [place] [address] [place] [phone] Kerrie Vela M.B., BForeignChForeign, M.DForeign [address] [place] [phone] 09/24/2024 11:30 AM CDT Appointment [facility] [address] [place] [phone] Kerrie Vela M.B., B.ChForeign, M.DForeign [address] [place] [phone] 09/25/2024 8:30 AM CDT Appointment [facility] [address] [place] [phone] Kerrie Vela M.B., B.ChForeign, M.DForeign [address] [place] [phone] 09/26/2024 8:30 AM CDT Appointment [facility] [address] [place] [phone] Kerrie Vela M.B., BDuran, M.DForeign [address] [place] [phone] 09/28/2024 11:45 AM CDT Lab Department of Oncology in [place], [place] [address] [place] [phone] Kerrie Vela M.B., B.ChForeign, M.DForeign [address] [place] [phone] 09/28/2024 1:40 PM CDT Office Visit Department of Oncology in [place], [place] [address] [place] [phone] Dawood Ruiz P.A.-C. [address] [place] [phone] 10/01/2024 8:00 AM CDT Appointment [facility] [address] [phone] Kerrie Vela M.B., B.ChForeign, M.DForeign [address] [place] [phone] 10/02/2024 8:00 AM CDT Appointment [facility], [facility], [facility] [address] [place] [phone] Kerrie Vela M.B., B.ChForeign, M.DForeign [address] [place] [phone] 10/03/2024 8:00 AM CDT Appointment [facility], [facility], [facility] [address] [place] [address] Kerrie Vela M.B., BDuran, MPhuc [address] [place] [phone] 10/10/2024 6:30 AM CDT Lab Department of Oncology in [place], [place] [address] [place] [phone] Kerrie Vela M.B., BDuran, M.DForeign [address] [place] [phone] 10/10/2024 8:20 AM CDT Office Visit Department of Oncology in [place], [place] [address] [place] [phone] Brittney Stuart M.D. [address] [place] [phone] 10/10/2024 12:30 PM CDT Infusion Department of Oncology in [place], [place] [address] [place] [phone] Kerrie Vela M.B., B., M.D. [address] [place] [phone] 10/12/2024 11:20 AM CDT Office Visit Department of Oncology in [place], [place] [address] [place] [phone] Kerrie Vela M.B., B., M.DForeign [address] [place] [phone] 10/17/2024 1:00 PM CDT Office Visit Department of Ophthalmology in [place], [place] [address] [place] [phone] Tomás Mcbride M.D. [address] [place] [address] 10/23/2024 8:45 AM CDT Lab Department of Oncology in [place], [place] [address] [place] [address] Kerrie Vela M.B., B., M.DForeign [address] [place] [phone] 10/23/2024 11:00 AM CDT Office Visit Department of Oncology in [place], [place] [address] [place] [address] Kerrie Vela M.B., BDuran, M.D. [address] [place] [phone] 10/23/2024 11:30 AM CDT Appointment Department of Radiology in [place], [place] [address] [place] [address] Franny Dutta M.D. [address] [place] [phone] 10/24/2024 7:30 AM CDT Infusion Department of Oncology in [place], [place] [address] [place] [address] Kerrie Vela M.B., B., M.DForeign [address] [place] [phone] 10/24/2024 11:00 AM CDT Appointment Department of Radiation Oncology in [place], [place] [address] [place] [phone] Franny Dutta M.D. [address] [place] [phone] 10/25/2024 11:00 AM CDT Office Visit Department of Oncology in [place], [place] [address] [place] [phone] Kerrie Vela M.B., BDuran, MPhuc [address] [place] [phone] 11/06/2024 7:00 AM CDT Lab Department of Oncology in [place], [place] [address] [place] [phone] Kerrie Vela M.B., BDuran, M.DForeign [address] [place] [phone] 11/06/2024 9:00 AM CDT Office Visit Department of Oncology in [address] [phone] Dawood Ruiz P.A.-C. [address] [place] [phone] 11/06/2024 10:00 AM CDT Infusion Department of Oncology in [place], [place] [address] [place] [phone] Kerrie Vela M.B., B.ChForeign, M.D. [address] [place] [phone] 11/20/2024 6:30 AM CDT Lab Department of Laboratory Medicine and Pathology, [facility], in [place], [place] [address] [place] [phone] Kerrie Vela M.B., BDuran, M.D. [address] [place] [phone] 11/20/2024 8:20 AM CDT Office Visit Department of Oncology in [address] [place] [address] Dawood Ruiz P.A.-C. [address] [place] [phone] 11/20/2024 9:00 AM CDT Infusion Department of Oncology in [address] [phone] Kerrie Vela M.B., B.ChForeign, M.DForeign [address] [place] [phone] 12/04/2024 8:30 AM CDT Lab Department of Laboratory Medicine and Pathology, [facility] in [address] [phone] Kerrie Vela M.B., B.ChForeign, M.DForeign [address] [place] [phone] 12/04/2024 10:20 AM CDT Office Visit Department of Oncology in [address] [phone] Kerrie Vela M.B., B.ChForeign, M.D. [address] [place] [phone] 12/04/2024 11:00 AM CDT Infusion Department of Oncology in [address] [phone] Kerrie Vela M.B., B.ChForeign, M.DForeign [address] [place] [phone] documented as of this encounter Visit Diagnoses Not on filedocumented in this encounter Additional Health Concerns Infection Onset Date Last Indicated Resolved Time COVID19 Pending 09/25/2019 09/25/2019 09/26/2019 1 :51 AM CDT COVID19 Pending 11/08/2019 11/08/2019 11/09/2019 1 :40 AM CDT COVID19 Pending 12/20/2019 12/20/2019 12/21/2019 1 1:51 AM CDT Protective Environment 02/21/2023 02/21/202305/08 5:44 AM STEAMFITTER APPRENTICE Protective Environment 05/11/2023 05/11/202306/13 6:17 AM STEAMFITTER APPRENTICE Protective Environment 06/27/2023 06/27/202310/15 5:30 AM CDT Protective Environment 10/28/2023 10/28/202306/25 5:58 AM STEAMFITTER APPRENTICE Protective Environment 07/05/2024 07/05/202409/02 6:26 AM CDT documented as of this encounter Care Teams Firer Retort Relationship Specialty Start Date End Date Jenny Vaca M.D. [address] [place] [phone] PCP - General 11/11/16 documented as of this encounter
--- OUTSIDE RECORDS SUMMARY | 2024-09-13 12:43 | XMS_ITS | Encounter Summary ---
Author Organization [facility] Address [address] [place] [address] Care Team Providers Care Vp Strategic Partnerships Name Role Phone Jenny Vaca M.D. Primary Care Provider Encounter Details Date Type Department Care Team (Late st Contact Info) Description 11/23/2007 Historical Ophthalmology RST OPH George Gross M.D. [address] [place] [phone] Social History Tobacco Use Types Packs/Day Years Used Date Smoking Tobacco: Never Assessed Comments Unknown Sex and Gender Information Value Date Recorded Sex Assigned at Not on file Legal Sex Female 8:27 AM NATIONAL SALES REPRESENTATIVE Gender Identity Female 04/06/2017 8:58 AM NATIONAL SALES REPRESENTATIVE Sexual Orientation Straight 04/06/2017 8: 58 AM NATIONAL SALES REPRESENTATIVE documented as of this encounter Progress Notes * George Gross M.D. - 11/23/2007 12:42 PM CDT Eye General CHIEF COMPLAINT Black spots and blobs in right eye HISTORY OF PRESENT ILLNESS Patient states that Tuesday noticed some black spots and blobs in the central vision in the right eye and believes it's decreased since then as well. There constantly and even tries to rub her eye to try and make it go away, but won't. 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 No problems with the left eye at this time. Denies having any ocular pressure and or pain. Denies eye irritations. JTK: Seen 11/20/[address] Mcbride, diagnoised with vitreous hemorrhage in right eye. Black floates and blobs in right eye one week prior to 11/20/07 (Va 20/[address] Mcbride on this day), has been getting worse since, no improvement. Has had vitreous hemorrhages before and they have usually cleared in a few days. IMPRESSION / REPORT / PLAN #1 PDR OU s/p PRP OU #2 CME OU s/p preservative-free intravitreal triamcinolone LE 03/16/07 and RE 03/30/07 CME resolved s/p preservative-free intravitreal triamcinolone LE 07/13/07 #3 cataract OD #4 pseudophakia OS #5 History of ERM left eye #6 Intravitreal hemorrhage, OD #7 Intraretinal hemorrhages, OD OCT 10/25: right eye: no CME in fovea; mild CME temporally left eye: trace CME with epiretinal memrane RTC in 2-[address] Cifuentes.discussed risks and benefits of surgery vs following; DIAGNOSIS #1 PDR OU #2 CME OU #3 cataract OD #4 pseudophakia OS #5 History of ERM left eye #6 Intravitreal hemorrhage, OD #7 Intraretinal hemorrhages, OD CDM Reports - EYEGEN Id: [id number] Status: Fnl documented in this encounter Plan of Treatment Upcoming Encounters Date Type Department Care Team (Late st Contact Info) Description 09/14/2024 11:00 AM CDT Admin Visit Department of Oncology in [place], [place] [address] [place] [address] 09/17/2024 8:00 AM CDT Lab Department of Infusion Therapy in [place], [place] [address] [place] [address] Jenny Vaca M.D. [address] [place] [address] 09/17/2024 1:30 PM CDT Office Visit Department of Internal Medicine in [place], [place] [address] [facility] [place] [address] Elissa Luo P.A.-C., M.S. [address] [place] [address] 09/18/2024 8:00 AM CDT Clinical Support Department of Oncology in [place], [place] [address] [place] [phone] Blossom Hernandez M.S.W., L.I.C.S.W. [address] [place] [phone] 09/20/2024 10:00 AM CDT Telemedicine Department of Oncology in [place], [place] [address] [place] [phone] Kerrie Vela M.B., B.Ch., M.D. [address] [place] [phone] 09/24/2024 8:30 AM CDT Lab Department of Oncology in [place], [place] [address] [place] [phone] Kerrie Vela M.B., B.Ch., M.D. [address] [place] [phone] 09/24/2024 9:40 AM CDT Office Visit Department of Oncology in [place], [place] [address] [place] [phone] Kerrie Vela M.B., B.Ch., M.D. [address] [place] [phone] 09/24/2024 10:20 AM CDT Education Department of Oncology in [place], [place] [address] [place] [phone] Kerrie Vela M.B., BDuran, M.DForeign [address] [place] [phone] 09/24/2024 11:30 AM CDT Appointment [facility], [employer], [facility] [address] [place] [phone] Kerrie Vela M.B., BForeignChForeign, M.DForeign [address] [place] [phone] 09/25/2024 8:30 AM CDT Appointment [facility], [employer], [facility] [address] [place] [phone] Kerrie Vela M.B., BForeignChForeign, M.D. [address] [place] [phone] 09/26/2024 8:30 AM CDT Appointment [facility], [employer], [facility] [address] [place] [phone] Kerrie Vela M.B., B.ChForeign, M.DForeign [address] [place] [phone] 09/28/2024 11:45 AM CDT Lab Department of Oncology in [place], [place] [address] [place] [phone] Kerrie Vela M.B., B.Ch., M.DForeign [address] [place] [phone] 09/28/2024 1:40 PM CDT Office Visit Department of Oncology in [place], [place] [address] [place] [phone] Dawood Ruiz P.A.-C. [address] [place] [phone] 10/01/2024 8:00 AM CDT Appointment [facility], [employer], [facility] [address] [place] [phone] Kerrie Vela M.B., BForeignChForeign, M.DForeign [address] [place] [phone] 10/02/2024 8:00 AM CDT Appointment [facility], [employer], [facility] [address] [place] [phone] Kerrie Vela M.B., BForeignChForeign, M.DForeign [address] [place] [phone] 10/03/2024 8:00 AM CDT Appointment [facility], [employer], [facility] [address] [place] [phone] Kerrie Vela M.B., B.ChForeign, M.DForeign [address] [place] [phone] 10/10/2024 6:30 AM CDT Lab Department of Oncology in [place], [place] [address] [place] [phone] Kerrie Vela M.B., B.ChForeign, M.DForeign [address] [place] [phone] 10/10/2024 8:20 AM CDT Office Visit Department of Oncology in [place], [place] [address] [place] [phone] Brittney Stuart M.D. [address] [place] [phone] 10/10/2024 12:30 PM CDT Infusion Department of Oncology in [place], [place] [address] [place] [phone] Kerrie Vela M.B., B.ChForeign, M.D. [address] [place] [phone] 10/12/2024 11:20 AM CDT Office Visit Department of Oncology in [place], [place] [address] [place] [phone] Kerrie Vela M.B., B.ChForeign, M.DForeign [address] [place] [phone] 10/17/2024 1:00 PM CDT Office Visit Department of Ophthalmology in [place], [place] [address] [place] [phone] Tomás Mcbride M.D. [address] [place] [phone] 10/23/2024 8:45 AM CDT Lab Department of Oncology in [place], [place] [address] [place] [phone] Kerrie Vela M.B., B.Ch., M.D. [address] [place] [phone] 10/23/2024 11:00 AM CDT Office Visit Department of Oncology in [address] [phone] Kerrie Vela M.B., BDuran, MForeignDForeign [address] [place] [phone] 10/23/2024 11:30 AM CDT Appointment Department of Radiology in [place], [place] [address] [place] [phone] Franny Dutta M.D. [address] [place] [phone] 10/24/2024 7:30 AM CDT Infusion Department of Oncology in [place], [place] [address] [place] [phone] Kerrie Vela M.B., B., M.DForeign [address] [place] [phone] 10/24/2024 11:00 AM CDT Appointment Department of Radiation Oncology in [place], [place] [address] [place] [address] Franny Dutta M.D. [address] [place] [phone] 10/25/2024 11:00 AM CDT Office Visit Department of Oncology in [place], [place] [address] [place] [phone] Kerrie Vela M.B., B.ChForeign, M.D. [address] [place] [phone] 11/06/2024 7:00 AM CDT Lab Department of Oncology in [place], [place] [address] [place] [phone] Kerrie Vela M.B., B.ChForeign, M.DForeign [address] [place] [phone] 11/06/2024 9:00 AM CDT Office Visit Department of Oncology in [place], [place] [address] [place] [phone] Dawood Ruiz P.A.-CForeign [address] [place] [phone] 11/06/2024 10:00 AM CDT Infusion Department of Oncology in [place], [place] [address] [place] [phone] Kerrie Vela M.B., B.Ch., M.D. [address] [place] [phone] 11/20/2024 6:30 AM CDT Lab Department of Laboratory Medicine and Pathology, [facility] in [place], [place] [address] [place] [phone] Kerrie Vela M.B., B.Ch., M.D. [address] [place] [phone] 11/20/2024 8:20 AM CDT Office Visit Department of Oncology in [place], [place] [address] [place] [address] Dawood Ruiz, P.A.-CForeign [address] [place] [phone] 11/20/2024 9:00 AM CDT Infusion Department of Oncology in [place], [place] [address] [place] [address] Kerrie Vela M.B., B.Ch., M.D. [address] [place] [phone] 12/04/2024 8:30 AM CDT Lab Department of Laboratory Medicine and Pathology, [facility], in [place], [place] [address] [place] [address] Kerrie Vela M.B., BDuran, MPhuc [address] [place] [phone] 12/04/2024 10:20 AM CDT Office Visit Department of Oncology in [place], [place] [address] [place] [address] Kerrie Vela M.B., BDuran, MPhuc [address] [place] [phone] 12/04/2024 11:00 AM CDT Infusion Department of Oncology in [place], [place] [address] [place] [address] Kerrie Vela M.B., BDuran, M.Cecelia [address] [place] [phone] documented as of this encounter Visit Diagnoses Not on filedocumented in this encounter Additional Health Concerns Infection Onset Date Last Indicated Resolved Time COVID19 Pending 09/25/2019 09/25/2019 09/26/2019 1 :51 AM CDT COVID19 Pending 11/08/2019 11/08/2019 11/09/2019 1 :40 AM CDT COVID19 Pending 12/20/2019 12/20/2019 12/21/2019 1 1:51 AM CDT Protective Environment 02/21/2023 02/21/202305/08 5:44 AM NATIONAL SALES REPRESENTATIVE Protective Environment 05/11/2023 05/11/202306/13 6:17 AM NATIONAL SALES REPRESENTATIVE Protective Environment 06/27/2023 06/27/202310/15 5:30 AM CDT Protective Environment 10/28/2023 10/28/202306/25 5:58 AM NATIONAL SALES REPRESENTATIVE Protective Environment 07/05/2024 07/05/202409/022025 6:26 AM CDT documented as of this encounter Care Teams Vp Strategic Partnerships Relationship Specialty Start Date End Date Jenny Vaca M.D. NPAria: [phone] [address] [place] [address] PCP - General 11/11/16 documented as of this encounter
--- OUTSIDE RECORDS SUMMARY | 2024-09-13 12:43 | XMS_ITS | Encounter Summary ---
Author Organization [facility] Address [address] [place] [address] Care Team Providers Care Combination Technician Name Role Phone Jenny Vaca M.D. Primary Care Provider [phone] Encounter Details Date Type Department Care Team (Late st Contact Info) Description 09/08/2015 Historical Ophthalmology RST OPH Kaylee Stuart M.D. [address] [place] [address] Social History Tobacco Use Types Packs/Day Years Used Date Smoking Tobacco: Never Assessed Comments Unknown Sex and Gender Information Value Date Recorded Sex Assigned at Not on file Legal Sex Female 8:27 AM FUNDING COORDINATOR Gender Identity Female 04/06/2017 8:58 AM FUNDING COORDINATOR Sexual Orientation Straight 04/06/2017 8: 58 AM FUNDING COORDINATOR documented as of this encounter Progress Notes * Kaylee Stuart M.D. - 09/08/2015 2:25 PM CDT Eye General CHIEF COMPLAINT Uveitis consult HISTORY OF PRESENT ILLNESS Patient states that she is here for a uveitis consult. Patient states that her vision has been stable since she saw Dr. Wright. Patient denies any eye pain. Patient denies any floaters recently. Patientdenies any flashes of light. Patient denies any other new symptoms. WMS: Dr. Wright decreased the eye drop in her right eye June - her vision got funny as it usually does when the uveitis comes back, so she increased the steroid gtt again. Currently using the steroid gtts TID OU. IMPRESSION / REPORT / PLAN Consult requested by: Dr. Richard Wright [id number] The following tests have been completed and need interpretation. OCT macula #1 Steroid induced glaucoma By history, her [...] both eyes right>left Left initially seen at [facility] 03/[facility]/2010 after she developed uveitis sometime following [facility]. (CE was 09/15/07) 02/2010 labs: [...] loss of outer retinal structures, no CME. IMPRESSION/PLAN Uveitis onset was two years after CE OS and before CE OD. Work up in 2009 was negative. 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 Unclear if symptoms of recurrence have truly represented recurrent uveitis. Systemic medication would have a lot of side effects, and an additional issue is the fact that she is leaving for [place] for the summer in a month. (Will be going to [place] from October 11 until late December/early January.) Advised her to decrease prednisolone to BID OU. She should first try more frequent artificial tears if she thinks she is having recurrent uveitis. Gave her my secretary bookkeeper's number to call if she thinks she is having recurrent uveitis, since I wouldlike to see her BEFORE she increases or changes steroid gtts. I will see her on the same day as her next appt with Dr. Wright on 09/26/15 to reassess. 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D. [address] [phone] 09/17/2024 1:30 PM CDT Office Visit Department of Internal Medicine in [place], [place] [address] [phone] Elissa Luo P.A.-C., M.S. [address] [phone] 09/18/2024 8:00 AM CDT Clinical Support Department of Oncology in [address] [phone] Blossom Hernandez M.S.W., L.I.C.S.W. [address] [place] [phone] 09/20/2024 10:00 AM CDT Telemedicine Department of Oncology in [address] [phone] Kerrie Vela M.B., B.Ch., M.D. [address] [place] [phone] 09/24/2024 8:30 AM CDT Lab Department of Oncology in [place], [place] [address] [place] [phone] Kerrie Vela M.B., B.Ch., M.D. [address] [place] [phone] 09/24/2024 9:40 AM CDT Office Visit Department of Oncology in [place], [place] [address] [place] [phone] Kerrie Vela M.B., Trevor, MPhuc [address] [place] [phone] 09/24/2024 10:20 AM CDT Education Department of Oncology in [place], [place] [address] [place] [phone] Kerrie Vela M.B., Trevor, M.DForeign [address] [place] [phone] 09/24/2024 11:30 AM CDT Appointment [facility], [facility], [address] [phone] Kerrie Vela M.B., Trevor, M.DForeign [address] [place] [phone] 09/25/2024 8:30 AM CDT Appointment [facility], [facility], [address] [phone] Kerrie Vela M.B., BDuran, M.DForeign [address] [place] [phone] 09/26/2024 8:30 AM CDT Appointment [facility], [facility], [facility] [address] [place] [address] Kerrie Vela M.B., Trevor, M.DForeign [address] [place] [phone] 09/28/2024 11:45 AM CDT Lab Department of Oncology in [place], [place] [address] [place] [phone] Kerrie Vela M.B., BForeignChForeign, MPhuc [address] [place] [phone] 09/28/2024 1:40 PM CDT Office Visit Department of Oncology in [place], [place] [address] [place] [phone] Dawood Ruiz P.A.-C. [address] [place] [phone] 10/01/2024 8:00 AM CDT Appointment [facility], [facility], [facility] [address] [place] [address] Kerrie Vela M.B., BForeignChForeign, M.DForeign [address] [place] [phone] 10/02/2024 8:00 AM CDT Appointment [facility], [facility], [facility] [address] [place] [address] Kerrie Vela M.B., B.ChForeign, M.DForeign [address] [place] [phone] 10/03/2024 8:00 AM CDT Appointment [facility], [facility] [address] [place] [phone] Kerrie Vela M.B., B.ChForeign, M.DForeign [address] [place] [address] 10/10/2024 6:30 AM CDT Lab Department of Oncology in [place], [place] [address] [place] [phone] Kerrie Vela M.B., B.ChForeign, M.Cecelia [address] [place] [phone] 10/10/2024 8:20 AM CDT Office Visit Department of Oncology in [place], [place] [address] [place] [phone] Brittney Stuart M.D. [address] [place] [phone] 10/10/2024 12:30 PM CDT Infusion Department of Oncology in [place], [place] [address] [place] [phone] Kerrie Vela M.B., B.ChForeign, M.DForeign [address] [place] [phone] 10/12/2024 11:20 AM CDT Office Visit Department of Oncology in [place], [place] [address] [place] [phone] Krerie Vela M.B., B.ChForeign, M.DForeign [address] [place] [phone] 10/17/2024 1:00 PM CDT Office Visit Department of Ophthalmology in [place], [place] [address] [place] [phone] Tomás Mcbride M.D. [address] [place] [phone] 10/23/2024 8:45 AM CDT Lab Department of Oncology in [place], [place] [address] [place] [phone] Kerrie Vela M.B.Trevor, M.D. [address] [place] [phone] 10/23/2024 11:00 AM CDT Office Visit Department of Oncology in [place], [place] [address] [place] [phone] Kerrie Vela M.B., Trevor, MPhuc [address] [place] [phone] 10/23/2024 11:30 AM CDT Appointment Department of Radiology in [place], [place] [address] [place] [phone] Franny Dutta M.D. [address] [place] [phone] 10/24/2024 7:30 AM CDT Infusion Department of Oncology in [place], [place] [address] [place] [phone] Kerrie Vela M.B., Trevor, Alin [address] [place] [phone] 10/24/2024 11:00 AM CDT Appointment Department of Radiation Oncology in [place], [place] [address] [place] [phone] Franny Dutta M.D. [address] [place] [phone] 10/25/2024 11:00 AM CDT Office Visit Department of Oncology in [place], [place] [address] [place] [phone] Kerrie Vela M.B., Trevor, MPhuc [address] [place] [phone] 11/06/2024 7:00 AM CDT Lab Department of Oncology in [place], [place] [address] [place] [phone] Kerrie Vela M.B., Trevor, MPhuc [address] [place] [phone] 11/06/2024 9:00 AM CDT Office Visit Department of Oncology in [place], [place] [address] [place] [phone] Dawood Ruiz, P.A.-CForeign [address] [place] [phone] 11/06/2024 10:00 AM CDT Infusion Department of Oncology in [place], [place] [address] [place] [phone] Kerrie Vela M.B., BDuran, M.Cecelia [address] [place] [phone] 11/20/2024 6:30 AM CDT Lab Department of Laboratory Medicine and Pathology, [facility] in [address] [phone] Kerrie Vela M.B., BDuran, M.DForeign [address] [place] [phone] 11/20/2024 8:20 AM CDT Office Visit Department of Oncology in [place], [place] [address] [place] [phone] Dawood Ruiz, P.A.-CForeign [address] [place] [phone] 11/20/2024 9:00 AM CDT Infusion Department of Oncology in [address] [address] Kerrie Vela M.B., B.Ch., M.D. [address] [place] [phone] 12/04/2024 8:30 AM CDT Lab Department of Laboratory Medicine and Pathology, [facility], in [place], [place] [address] [place] [phone] Kerrie Vela M.B., B.ChForeign, M.D. [address] [place] [phone] 12/04/2024 10:20 AM CDT Office Visit Department of Oncology in [place], [place] [address] [place] [phone] Kerrie Vela M.B., B.Ch., M.D. [address] [place] [phone] 12/04/2024 11:00 AM CDT Infusion Department of Oncology in [place], [place] [address] [place] [phone] Kerrie Vela M.B., B.Ch., M.D. [address] [place] [phone] documented as of this encounter Visit Diagnoses Not on filedocumented in this encounter Additional Health Concerns Infection Onset Date Last Indicated Resolved Time COVID19 Pending 09/25/2019 09/25/2019 09/26/2019 1 :51 AM CDT COVID19 Pending 11/08/2019 11/08/2019 11/09/2019 1 :40 AM CDT COVID19 Pending 12/20/2019 12/20/2019 12/21/2019 1 1:51 AM CDT Protective Environment 02/21/2023 02/21/202305/08 5:44 AM FUNDING COORDINATOR Protective Environment 05/11/2023 05/11/202306/134 6:17 AM FUNDING COORDINATOR Protective Environment 06/27/2023 06/27/202310/15 5:30 AM CDT Protective Environment 10/28/2023 10/28/202306/25 5:58 AM FUNDING COORDINATOR Protective Environment 07/05/2024 07/05/202409/02 6:26 AM CDT Assessment Noted Time PHQ-9 Depression Total Score: 0 08/01/19 8:33 AM FUNDING COORDINATOR documented as of this encounter Care Teams Combination Technician Relationship Specialty Start Date End Date Jenny Vaca M.D. [address] [place] [phone] PCP - General 11/11/16 documented as of this encounter
--- OUTSIDE RECORDS SUMMARY | 2024-09-13 12:43 | XMS_ITS | Encounter Summary ---
Author Organization [facility] Address [address] [place] [address] Care Team Providers Care Solutions Consultant Name Role Phone Jenny Vaca M.D. Primary Care Provider Encounter Details Date Type Department Care Team (Late st Contact Info) Description 09/26/2015 Historical Ophthalmology RST OPH Richard Wright M.D., M.S. [address] [place] [address] Social History Tobacco Use Types Packs/Day Years Used Date Smoking Tobacco: Never Assessed Comments Unknown Sex and Gender Information Value Date Recorded Sex Assigned at Not on file Legal Sex Female 8:27 AM HEAT TRANSFER TECHNICIAN Gender Identity Female 04/06/2017 8:58 AM HEAT TRANSFER TECHNICIAN Sexual Orientation Straight 04/06/2017 8: 58 AM HEAT TRANSFER TECHNICIAN documented as of this encounter Progress Notes * Richard Wright M.D. - 09/26/2015 7:04 AM CDT Eye General CHIEF COMPLAINT Follow up Steroid induced glaucoma HISTORY OF PRESENT ILLNESS Patient is a 70 year old female here today for follow up Steroid induced glaucoma. Patient is also scheduled to see Dr. Stuart today. Patient reports vision is stable since last visit. Patient got newglass prescription 08/18/15. Patient denies any flashes of light, floaters and ocular pain. No new eye concerns today. Patient is Type 2 diabetic. Last A1c: 6.5; 07/17/15. Blood sugar reading this morning; 106. IMPRESSION / REPORT / PLAN #1 Steroid [...] PRP related instead of glaucoma IOP high right despite decreasing PF to bid; acceptable left Patient is very reluctant to have surgery. Options include Trabectome or tube shunt. Pt will se Dr. Stuart today to see if PF can be tapered further. If PF can be reduced, then f/u in 1 month. If not, she will need surgery to reduce IOP to target #2 Chronic anterior uveitis, both eyes right>left Left initially seen at [facility] 03/24/2010 after she developed uveitis sometime [facility] (CE was 09/15/07) 02/2010 labs: [...] multiple Avastin CDM Reports - EYEGEN Id: [id number] Status: Fnl documented in this encounter Plan of Treatment Upcoming Encounters Date Type Department Care Team (Late st Contact Info) Description 09/14/2024 11:00 AM CDT Admin Visit Department of Oncology in [place], [place] [address] [place] [phone] 09/17/2024 8:00 AM CDT Lab Department of Infusion Therapy in [place], [place] [address] [phone] Jenny Vaca M.D. [address] [phone] 09/17/2024 1:30 PM CDT Office Visit Department of Internal Medicine in [place], [place] [address] [phone] Elissa Luo, PEvelio-Hesham., M.S. [address] [phone] 09/18/2024 8:00 AM CDT Clinical Support Department of Oncology in [place], [place] [address] [place] [phone] Blossom Hernandez M.S.W., L.I.C.S.W. [address] [place] [phone] 09/20/2024 10:00 AM CDT Telemedicine Department of Oncology in [place], [place] [address] [place] [phone] Kerrie Vela M.B., BDuran, M.DForeign [address] [place] [phone] 09/24/2024 8:30 AM CDT Lab Department of Oncology in [place], [place] [address] [place] [phone] Kerrie Vela M.B., BForeignChForeign, M.DForeign [address] [place] [phone] 09/24/2024 9:40 AM CDT Office Visit Department of Oncology in [place], [place] [address] [place] [phone] Kerrie Vela M.B., B.ChForeign, M.D. [address] [place] [phone] 09/24/2024 10:20 AM CDT Education Department of Oncology in [place], [place] [address] [place] [phone] Kerrie Vela M.B., B.Ch., M.DForeign [address] [place] [phone] 09/24/2024 11:30 AM CDT Appointment [facility], [facility], [facility], [facility] [address] [place] [phone] Kerrie Vela M.B., B.ChForeign, M.D. [address] [place] [phone] 09/25/2024 8:30 AM CDT Appointment [facility], [facility], [facility] [address] [place] [phone] Kerrie Vela M.B., BForeignChForeign, M.DForeign [address] [place] [phone] 09/26/2024 8:30 AM CDT Appointment [facility], [facility], [facility] [address] [place] [phone] Kerrie Vela M.B., BForeignChForeign, M.DForeign [address] [place] [phone] 09/28/2024 11:45 AM CDT Lab Department of Oncology in [place], [place] [address] [place] [phone] Kerrie Vlea M.B., B.Ch., M.D. [address] [place] [phone] 09/28/2024 1:40 PM CDT Office Visit Department of Oncology in [place], [place] [address] [place] [phone] Dawood Ruiz P.A.-C. [address] [place] [phone] 10/01/2024 8:00 AM CDT Appointment [facility], [facility], [facility] [address] [place] [phone] Kerrie Vela M.B., B.Ch., M.D. [address] [place] [phone] 10/02/2024 8:00 AM CDT Appointment [facility], [facility], [facility] [address] [place] [phone] Kerrie Vela M.B., BDuran, MPhuc [address] [place] [phone] 10/03/2024 8:00 AM CDT Appointment [facility], [facility], [facility] Level [address] [place] [address] Kerrie Vela M.B., BDuran, MForeignDForeign [address] [place] [phone] 10/10/2024 6:30 AM CDT Lab Department of Oncology in [place], [place] [address] [place] [phone] Kerrie Vela M.B., B.ChForeign, M.DForeign [address] [place] [phone] 10/10/2024 8:20 AM CDT Office Visit Department of Oncology in [place], [place] [address] [place] [phone] Brittney Stuart M.D. [address] [place] [phone] 10/10/2024 12:30 PM CDT Infusion Department of Oncology in [place], [place] [address] [place] [phone] Kerrie Vela M.B., B.ChForeign, M.D. [address] [place] [phone] 10/12/2024 11:20 AM CDT Office Visit Department of Oncology in [place], [place] [address] [place] [phone] Kerrie Vela M.B., BDuran, M.Cecelia [address] [place] [phone] 10/17/2024 1:00 PM CDT Office Visit Department of Ophthalmology in [place], [place] [address] [place] [phone] Tomás Mcbride M.D. [address] [place] [phone] 10/23/2024 8:45 AM CDT Lab Department of Oncology in [place], [place] [address] [place] [phone] Kerrie Vela M.B., BDuran, M.Cecelia [address] [place] [phone] 10/23/2024 11:00 AM CDT Office Visit Department of Oncology in [place], [place] [address] [place] [phone] Kerrie Vela M.B., B., M.Cecelia [address] [place] [phone] 10/23/2024 11:30 AM CDT Appointment Department of Radiology in [place], [place] [address] [place] [phone] Franny Dutta M.D. [address] [place] [phone] 10/24/2024 7:30 AM CDT Infusion Department of Oncology in [place], [place] [address] [place] [phone] Kerrie Vela M.B., B.ChForeign, MPhuc [address] [place] [phone] 10/24/2024 11:00 AM CDT Appointment Department of Radiation Oncology in [place], [place] [address] [place] [phone] Franyn Dutta M.D. [address] [place] [phone] 10/25/2024 11:00 AM CDT Office Visit Department of Oncology in [place], [place] [address] [place] [phone] Kerrie Vela M.B., B.ChForeign, M.DForeign [address] [place] [phone] 11/06/2024 7:00 AM CDT Lab Department of Oncology in [place], [place] [address] [place] [phone] Kerrie Vela M.B., B.ChForeign, M.DForeign [address] [place] [phone] 11/06/2024 9:00 AM CDT Office Visit Department of Oncology in [place], [place] [address] [place] [phone] Dawood Ruiz P.A.-C. [address] [place] [phone] 11/06/2024 10:00 AM CDT Infusion Department of Oncology in [place], [place] [address] [place] [phone] Kerrie Vela M.B., B.ChForeign, M.D. [address] [place] [phone] 11/20/2024 6:30 AM CDT Lab Department of Laboratory Medicine and Pathology, [facility], in [place], [place] [address] [place] [phone] Kerrie Vela M.B., BForeignChForeign, M.D. [address] [place] [phone] 11/20/2024 8:20 AM CDT Office Visit Department of Oncology in [place], [place] [address] [place] [phone] Dawood Ruiz P.A.-C. [address] [place] [phone] 11/20/2024 9:00 AM CDT Infusion Department of Oncology in [place], [place] [address] [place] [phone] Kerrie Vela M.B., B.Ch., M.D. [address] [place] [phone] 12/04/2024 8:30 AM CDT Lab Department of Laboratory Medicine and Pathology, [facility], in [place], [place] [address] [place] [phone] Kerrie Vela M.B., B.Ch., M.DForeign [address] [place] [phone] 12/04/2024 10:20 AM CDT Office Visit Department of Oncology in [place], [place] [address] [place] [phone] Kerrie Vela M.B., B.Ch., M.D. [address] [place] [phone] 12/04/2024 11:00 AM CDT Infusion Department of Oncology in [place], [place] [address] [place] [address] Kerrie Vela M.B., BDuran, Alin [address] [place] [address] documented as of this encounter Visit Diagnoses Not on filedocumented in this encounter Additional Health Concerns Infection Onset Date Last Indicated Resolved Time COVID19 Pending 09/25/2019 09/25/2019 09/26/2019 1 :51 AM CDT COVID19 Pending 11/08/2019 11/08/2019 11/09/2019 1 :40 AM CDT COVID19 Pending 12/20/2019 12/20/2019 12/21/2019 1 1:51 AM CDT Protective Environment 02/21/2023 02/21/202305/08 5:44 AM HEAT TRANSFER TECHNICIAN Protective Environment 05/11/2023 05/11/202306/13 6:17 AM HEAT TRANSFER TECHNICIAN Protective Environment 06/27/2023 06/27/202310/15 5:30 AM CDT Protective Environment 10/28/2023 10/28/202306/25 5:58 AM HEAT TRANSFER TECHNICIAN Protective Environment 07/05/2024 07/05/202409/02 6:26 AM CDT Assessment Noted Time PHQ-9 Depression Total Score: 0 08/01/19 15 8:33 AM HEAT TRANSFER TECHNICIAN documented as of this encounter Care Teams Solutions Consultant Relationship Specialty Start Date End Date Jenny Vaca M.D. [address] [place] [phone] PCP - General 11/11/16 documented as of this encounter
--- OUTSIDE RECORDS SUMMARY | 2024-09-13 12:43 | XMS_ITS | Encounter Summary ---
Author Organization [facility] Address [address] [place] [address] Care Team Providers Care Ordnance Engineering Technician Name Role Phone Jenny Vaca M.D. Primary Care Provider [phone] Encounter Details Date Type Department Care Team (Late st Contact Info) Description 12/06/2007 Historical Ophthalmology RST OPH Maria Eugenia Cifuentes M.D. [address] [place] [phone] Social History Tobacco Use Types Packs/Day Years Used Date Smoking Tobacco: Never Assessed Comments Unknown Sex and Gender Information Value Date Recorded Sex Assigned at Not on file Legal Sex Female 8:27 AM BACTERIOLOGIST INDUSTRIAL Gender Identity Female 04/06/2017 8:58 AM BACTERIOLOGIST INDUSTRIAL Sexual Orientation Straight 04/06/2017 8: 58 AM BACTERIOLOGIST INDUSTRIAL documented as of this encounter Progress Notes * Maria Eugenia Cifuentes M.D. - 12/06/2007 7:04 AM CDT Eye General HISTORY OF PRESENT ILLNESS This 62 year old female returns for an evaluation PDR OU. She reports her vision is stable since last visit. Floaters alone, right eye, x 2 weeks, constantly. She denies flashes, diplopia. Patient denies ocular pain. . 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 The patient understands and wishesto proceed with the procedure. Discussed need for cataract surgery after vitrectomy. Stop aspirin 5 days prior to surgery. Recommend avastin injection, right eye. Discussed risks, goals, alternatives, advance directives, and the necessity of other members of the healthcare team participating in the procedure with the patient (or legal parts sales representative and others present during the discussion). The patient understands andwishes to proceed with the procedure. OCT 10/25: right eye: no CME in fovea; mild CME temporally left eye: trace CME with epiretinal memrane DIAGNOSIS #1 PDR both eyes #2 CME both eyes #3 cataract right eye #4 pseudophakia left eye #5 History of ERM left eye #6 Intravitreal/ Intraretinal hemorrhages, right eye CDM Reports - EYEGEN Id: [id number] Status: Fnl documented in this encounter Plan of Treatment Upcoming Encounters Date Type Department Care Team (Late st Contact Info) Description 09/14/2024 11:00 AM CDT Admin Visit Department of Oncology in [place], [place] [address] [place] [address] 09/17/2024 8:00 AM CDT Lab Department of Infusion Therapy in [place], [place] [address] [place] [address] Jenny Vaca M.D. [address] [place] [phone] 09/17/2024 1:30 PM CDT Office Visit Department of Internal Medicine in [place], [place] [address] [place] [address] Elissa Luo P.A.-C., M.S. [address] [place] [address] 09/18/2024 8:00 AM CDT Clinical Support Department of Oncology in [place], [place] [address] [place] [phone] Blossom Hernandez M.S.W., L.I.C.S.W. [address] [place] [phone] 09/20/2024 10:00 AM CDT Telemedicine Department of Oncology in [place], [place] [address] [place] [phone] Kerrie Vela M.B., B.Ch., M.D. [address] [place] [phone] 09/24/2024 8:30 AM CDT Lab Department of Oncology in [place], [place] [address] [place] [phone] Kerrie Vela M.B., B.Ch., M.D. [address] [place] [phone] 09/24/2024 9:40 AM CDT Office Visit Department of Oncology in [place], [place] [address] [place] [phone] Kerrie Vela M.B., B.Ch., M.D. [address] [place] [phone] 09/24/2024 10:20 AM CDT Education Department of Oncology in [place], [place] [address] [place] [phone] Kerrie Vela M.B., Trevor, MPhuc [address] [place] [phone] 09/24/2024 11:30 AM CDT Appointment [facility], [employer], [facility] [address] [place] [phone] Kerrie Vela M.B., Trevor, MPhuc [address] [place] [phone] 09/25/2024 8:30 AM CDT Appointment [facility], [employer], [facility] [address] [place] [phone] Kerrie Vela M.B., Trevor, M.DForeign [address] [place] [phone] 09/26/2024 8:30 AM CDT Appointment [facility], [employer], [facility] [address] [place] [phone] Kerrie Vela M.B., BDuran, M.DForeign [address] [place] [phone] 09/28/2024 11:45 AM CDT Lab Department of Oncology in [place], [place] [address] [place] [phone] Kerrie Vela M.B., BDuran, M.DForeign [address] [place] [phone] 09/28/2024 1:40 PM CDT Office Visit Department of Oncology in [place], [place] [address] [place] [phone] Dawood Ruiz P.A.-C. [address] [place] [phone] 10/01/2024 8:00 AM CDT Appointment [facility], [employer], [facility] [address] [place] [phone] Kerrie Vela M.B., B.ChForeign, M.DForeign [address] [place] [phone] 10/02/2024 8:00 AM CDT Appointment [facility], [employer], [facility] [address] [place] [phone] Kerrie Vela M.B., B.ChForeign, M.D. [address] [place] [phone] 10/03/2024 8:00 AM CDT Appointment [facility], [employer], [facility] [address] [place] [phone] Kerrie Vela M.B., B.Ch., M.DForeign [address] [place] [phone] 10/10/2024 6:30 AM CDT Lab Department of Oncology in [place], [place] [address] [place] [phone] Kerrie Vela M.B., B.Ch., M.D. [address] [place] [phone] 10/10/2024 8:20 AM CDT Office Visit Department of Oncology in [place], [place] [address] [place] [phone] Brittney Stuart M.D. [address] [place] [phone] 10/10/2024 12:30 PM CDT Infusion Department of Oncology in [place], [place] [address] [place] [phone] Kerrie Vela M.B., B.ChForeign, M.D. [address] [place] [phone] 10/12/2024 11:20 AM CDT Office Visit Department of Oncology in [place], [place] [address] [place] [address] Kerrie Vela M.B., B.ChForeign, M.DForeign [address] [place] [phone] 10/17/2024 1:00 PM CDT Office Visit Department of Ophthalmology in [place], [place] [address] [place] [phone] Tomás Mcbride M.D. [address] [place] [phone] 10/23/2024 8:45 AM CDT Lab Department of Oncology in [place], [place] [address] [place] [phone] Kerrie Vela M.B., B.Ch., M.D. [address] [place] [phone] 10/23/2024 11:00 AM CDT Office Visit Department of Oncology in [place], [place] [address] [place] [phone] Kerrie Vela M.B., B.ChForeign, M.DForeign [address] [place] [phone] 10/23/2024 11:30 AM CDT Appointment Department of Radiology in [place], [place] [address] [place] [phone] Franny Dutta M.D. [address] [place] [phone] 10/24/2024 7:30 AM CDT Infusion Department of Oncology in [place], [place] [address] [place] [phone] Kerrie Vela M.B., B.ChForeign, M.DForeign [address] [place] [phone] 10/24/2024 11:00 AM CDT Appointment Department of Radiation Oncology in [place], [place] [address] [place] [phone] Franny Dutta M.D. [address] [place] [phone] 10/25/2024 11:00 AM CDT Office Visit Department of Oncology in [address] [phone] Kerrie Vela M.B., B.ChForeign, M.D. [address] [place] [phone] 11/06/2024 7:00 AM CDT Lab Department of Oncology in [place], [place] [address] [place] [phone] Kerrie Vela M.B., B.Ch., M.DForeign [address] [place] [phone] 11/06/2024 9:00 AM CDT Office Visit Department of Oncology in [place], [place] [address] [place] [phone] Dawood Ruiz P.A.-CForeign [address] [place] [phone] 11/06/2024 10:00 AM CDT Infusion Department of Oncology in [place], [place] [address] [place] [phone] Kerrie Vela M.B., B.Ch., M.D. [address] [place] [phone] 11/20/2024 6:30 AM CDT Lab Department of Laboratory Medicine and Pathology, [facility] in [place], [place] [address] [place] [phone] Kerrie Vela M.B., B.Ch., M.D. [address] [place] [phone] 11/20/2024 8:20 AM CDT Office Visit Department of Oncology in [place], [place] [address] [place] [phone] Dawood Ruiz P.A.-CForeign [address] [place] [phone] 11/20/2024 9:00 AM CDT Infusion Department of Oncology in [place], [place] [address] [place] [phone] Kerrie Vela M.B., B.Ch., M.D. [address] [place] [phone] 12/04/2024 8:30 AM CDT Lab Department of Laboratory Medicine and Pathology, [facility], in [place], [place] [address] [place] [address] Kerrie Vela M.B., BDuran, MPhuc [address] [place] [phone] 12/04/2024 10:20 AM CDT Office Visit Department of Oncology in [place], [place] [address] [place] [phone] Kerrie Vela M.B., Trevor, MPhuc [address] [place] [phone] 12/04/2024 11:00 AM CDT Infusion Department of Oncology in [place], [place] [address] [place] [phone] Kerrie Vela M.B., BDuran, MPhuc [address] [place] [phone] documented as of this encounter Visit Diagnoses Not on filedocumented in this encounter Additional Health Concerns Infection Onset Date Last Indicated Resolved Time COVID19 Pending 09/25/2019 09/25/2019 09/26/2019 1 :51 AM CDT COVID19 Pending 11/08/2019 11/08/2019 11/09/2019 1 :40 AM CDT COVID19 Pending 12/20/2019 12/20/2019 12/21/2019 1 1:51 AM CDT Protective Environment 02/21/2023 02/21/202305/08 5:44 AM BACTERIOLOGIST INDUSTRIAL Protective Environment 05/11/2023 05/11/202306/13 6:17 AM BACTERIOLOGIST INDUSTRIAL Protective Environment 06/27/2023 06/27/202310/15 5:30 AM CDT Protective Environment 10/28/2023 10/28/202306/25 5:58 AM BACTERIOLOGIST INDUSTRIAL Protective Environment 07/05/2024 07/05/202409/02 6:26 AM CDT documented as of this encounter Care Teams Ordnance Engineering Technician Relationship Specialty Start Date End Date Jenny Vaca M.D. NPAria: [phone] [address] [place] [phone] PCP - General 11/11/16 documented as of this encounter
--- OUTSIDE RECORDS SUMMARY | 2024-09-13 12:43 | XMS_ITS | Encounter Summary ---
Author Organization [facility] Address [address] [place] [address] Care Team Providers Care Market Research Lead Name Role Phone Jenny Vaca M.D. Primary Care Provider [phone]- [phone] Encounter Details Date Type Department Care Team (Late st Contact Info) Description 06/12/2015 Historical Ophthalmology RST OPH Richard Wright M.D., M.S. [address] [place] [address] Social History Tobacco Use Types Packs/Day Years Used Date Smoking Tobacco: Never Assessed Comments Unknown Sex and Gender Information Value Date Recorded Sex Assigned at Not on file Legal Sex Female 8:27 AM BONE PLANT SUPERVISOR Gender Identity Female 04/06/2017 8:58 AM BONE PLANT SUPERVISOR Sexual Orientation Straight 04/06/2017 8: 58 AM BONE PLANT SUPERVISOR documented as of this encounter Progress Notes * Richard Wright M.D. - 06/12/2015 11:43 AM CST Eye Subsequent Visit HISTORY OF PRESENT ILLNESS Patient here for glaucoma testing, visual field and photos today and will see Dr. Wright tomorrow. IMPRESSION / REPORT / PLAN The following tests have been completed and need interpretation. Juli visual field CDM Reports - EYESV Id: [id number] Status: Fnl documented in this encounter Plan of Treatment Upcoming Encounters Date Type Department Care Team (Late st Contact Info) Description 09/14/2024 11:00 AM CDT Admin Visit Department of Oncology in [place], [place] [address] [place] [phone] 09/17/2024 8:00 AM CDT Lab Department of Infusion Therapy in [place], [place] [address] [phone] Jenny Vaca M.D. [address] [phone] 09/17/2024 1:30 PM CDT Office Visit Department of Internal Medicine in [place], [place] [address] [phone] Elissa Luo, Jen., M.S. [address] [phone] 09/18/2024 8:00 AM CDT Clinical Support Department of Oncology in [place], [place] [address] [place] [phone] Blossom Hernandez M.S.W., L.I.C.S.W. [address] [place] [phone] 09/20/2024 10:00 AM CDT Telemedicine Department of Oncology in [place], [place] [address] [place] [phone] Kerrie Vela M.B., B.Ch., M.D. [address] [place] [phone] 09/24/2024 8:30 AM CDT Lab Department of Oncology in [place], [place] [address] [place] [address] Kerrie Vela M.B., BDuran, M.Cecelia [address] [place] [phone] 09/24/2024 9:40 AM CDT Office Visit Department of Oncology in [place], [place] [address] [place] [phone] Kerrie Vela M.B., BForeignChForeign, M.DForeign [address] [place] [phone] 09/24/2024 10:20 AM CDT Education Department of Oncology in [place], [place] [address] [place] [phone] Kerrie Vela M.B., BForeignChForeign, M.DForeign [address] [place] [phone] 09/24/2024 11:30 AM CDT Appointment [facility] [place] [address] [place] [phone] Kerrie Vela M.B., B.ChForeign, M.DForeign [address] [place] [phone] 09/25/2024 8:30 AM CDT Appointment [facility] [place] [address] [place] [phone] Kerrie Vela M.B., B.ChForeign, M.DForeign [address] [place] [phone] 09/26/2024 8:30 AM CDT Appointment [facility], [facility] [address] [place] [phone] Kerrie Vela M.B., BDuran, M.DForeign [address] [place] [phone] 09/28/2024 11:45 AM CDT Lab Department of Oncology in [place], [place] [address] [place] [phone] Kerrie Vela M.B., BForeignChForeign, M.DForeign [address] [place] [phone] 09/28/2024 1:40 PM CDT Office Visit Department of Oncology in [place], [place] [address] [place] [phone] Dawood Ruiz P.A.-C. [address] [place] [phone] 10/01/2024 8:00 AM CDT Appointment [facility] [place] [address] [place] [phone] Kerrie Vela M.B., B.ChForeign, M.DForeign [address] [place] [phone] 10/02/2024 8:00 AM CDT Appointment [facility], [facility], [facility] [address] [place] [phone] Kerrie Vela M.B., B., M.DForeign [address] [place] [phone] 10/03/2024 8:00 AM CDT Appointment [facility], [facility], [facility] [address] [place] [address] Kerrie Vela M.B., BDuran, MPhuc [address] [place] [phone] 10/10/2024 6:30 AM CDT Lab Department of Oncology in [place], [place] [address] [place] [phone] Kerrie Vela M.B., BDuran, M.DForeign [address] [place] [phone] 10/10/2024 8:20 AM CDT Office Visit Department of Oncology in [address] [phone] Brittney Stuart M.D. [address] [place] [phone] 10/10/2024 12:30 PM CDT Infusion Department of Oncology in [place], [place] [address] [place] [phone] Kerrie Vela M.B., B., M.D. [address] [place] [phone] 10/12/2024 11:20 AM CDT Office Visit Department of Oncology in [place], [place] [address] [place] [phone] Kerrie Vela M.B., B., M.DForeign [address] [place] [phone] 10/17/2024 1:00 PM CDT Office Visit Department of Ophthalmology in [place], [place] [address] [place] [phone] Tomás Mcbride M.D. [address] [place] [address] 10/23/2024 8:45 AM CDT Lab Department of Oncology in [place], [place] [address] [place] [address] Kerrie Vela M.B., B.ChForeign, M.DForeign [address] [place] [phone] 10/23/2024 11:00 AM CDT Office Visit Department of Oncology in [place], [place] [address] [place] [address] Kerrie Vela M.B., B., M.D. [address] [place] [phone] 10/23/2024 11:30 AM CDT Appointment Department of Radiology in [place], [place] [address] [place] [address] Franny Dutta M.D. [address] [place] [phone] 10/24/2024 7:30 AM CDT Infusion Department of Oncology in [place], [place] [address] [place] [address] Kerrie Vela M.B., B., M.DForeign [address] [place] [phone] 10/24/2024 11:00 AM CDT Appointment Department of Radiation Oncology in [place], [place] [address] [place] [phone] Franny Dutta M.D. [address] [place] [phone] 10/25/2024 11:00 AM CDT Office Visit Department of Oncology in [place], [place] [address] [place] [phone] Kerrie Vela M.B., BDuran, MEllen. [address] [place] [phone] 11/06/2024 7:00 AM CDT Lab Department of Oncology in [place], [place] [address] [place] [phone] Kerrie Vela M.B., BDuran, M.DForeign [address] [place] [phone] 11/06/2024 9:00 AM CDT Office Visit Department of Oncology in [address] [phone] Dawood Ruiz P.A.-C. [address] [place] [phone] 11/06/2024 10:00 AM CDT Infusion Department of Oncology in [address] [phone] Kerrie Vela M.B., B.Ch., M.DForeign [address] [place] [phone] 11/20/2024 6:30 AM CDT Lab Department of Laboratory Medicine and Pathology, [facility], in [place], [place] [address] [place] [phone] Kerrie Vela M.B., BDuran, M.D. [address] [place] [phone] 11/20/2024 8:20 AM CDT Office Visit Department of Oncology in [address] [place] [address] Dawood Ruiz P.A.-C. [address] [place] [phone] 11/20/2024 9:00 AM CDT Infusion Department of Oncology in [place], [place] [address] [place] [phone] Kerrie Vela M.B., B.ChForeign, M.DForeign [address] [place] [phone] 12/04/2024 8:30 AM CDT Lab Department of Laboratory Medicine and Pathology, [facility] in [address] [address] Kerrie Vela M.B., B.ChForeign, M.DForeign [address] [place] [phone] 12/04/2024 10:20 AM CDT Office Visit Department of Oncology in [address] [phone] Kerrie Vela M.B., B.ChForeign, M.D. [address] [place] [phone] 12/04/2024 11:00 AM CDT Infusion Department of Oncology in [address] [address] Kerrie Vela M.B., B.Ch., M.D. [address] [place] [phone] documented as of this encounter Visit Diagnoses Not on filedocumented in this encounter Additional Health Concerns Infection Onset Date Last Indicated Resolved Time COVID19 Pending 09/25/2019 09/25/2019 09/26/2019 1 :51 AM CDT COVID19 Pending 11/08/2019 11/08/2019 11/09/2019 1 :40 AM CDT COVID19 Pending 12/20/2019 12/20/2019 12/21/2019 1 1:51 AM CDT Protective Environment 02/21/2023 02/21/202305/08 5:44 AM BONE PLANT SUPERVISOR Protective Environment 05/11/2023 05/11/202306/13 6:17 AM BONE PLANT SUPERVISOR Protective Environment 06/27/2023 06/27/202310/15 5:30 AM CDT Protective Environment 10/28/2023 10/28/202306/25 5:58 AM BONE PLANT SUPERVISOR Protective Environment 07/05/2024 07/05/202409/02 6:26 AM CDT Assessment Noted Time PHQ-9 Depression Total Score: 0 08/01/19 15 8:33 AM BONE PLANT SUPERVISOR documented as of this encounter Care Teams Market Research Lead Relationship Specialty Start Date End Date Jenny Vaca M.D. [address] [place] [address] PCP - General 11/11/16 documented as of this encounter
--- OUTSIDE RECORDS SUMMARY | 2024-09-13 12:43 | XMS_ITS | Encounter Summary ---
Author Organization [facility] Address [address] [place] [address] Care Team Providers Care Hat Binder Name Role Phone Jenny Vaca M.D. Primary Care Provider +1- [phone] Encounter Details Date Type Department Care Team (Late st Contact Info) Description 09/26/2015 Historical Ophthalmology RST OPH Kaylee Stuart M.D. [address] [place] [address] Social History Tobacco Use Types Packs/Day Years Used Date Smoking Tobacco: Never Assessed Comments Unknown Sex and Gender Information Value Date Recorded Sex Assigned at Not on file Legal Sex Female 8:27 AM SENIOR SALES COMPENSATION ANALYST Gender Identity Female 04/06/2017 8:58 AM SENIOR SALES COMPENSATION ANALYST Sexual Orientation Straight 04/06/2017 8: 58 AM SENIOR SALES COMPENSATION ANALYST documented as of this encounter Progress Notes * Kaylee Stuart M.D. - 09/26/2015 8:59 AM CDT Eye General CHIEF COMPLAINT recheck uveitis HISTORY OF PRESENT ILLNESS Patient reports vision is stable since last visit. Patient got new glass prescription 08/18/15. Patient denies any flashes of light, floaters and ocular pain. No new eye concerns today. Patient is Type 2 diabetic. Last A1c: 6.5; 2/18/16. Blood sugar reading this morning; 106. - copied 09/26/2015 CDM PALLAVI. AAT: Patient irritated this morning because she has been waiting this morning for her appointment which was late. No changes in vision. Got new glasses 1 month ago and thinks her vision is great. SawDr. Sit this morning and IOP is too high. If she can taper PF, he will see her again in 1 month, but if the PF can't be tapered, she will need surfical intervention for IOP. On BID PF currently (decreased from TID on 09/07) WMS: She continued prednisolone TID until a little less than a week ago because she was confused about the instructions. She has not had any symptoms of recurrent uveitis (her vision usually changes) IMPRESSION / REPORT / PLAN Consult requested by: Dr. Richard Wright [id number] #1 Steroid induced glaucoma By history, her [...] surgery. Options include Trabectome or tube shunt. 08/2015: Pt will see Dr. Stuart today to see if PF can be tapered further. If PF can be reduced, then f/u in 1 month. 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 (CE was 09/15/07) 02/2010 labs: [...] the fact that she is leaving for [place] for the summer in a month. Currently has appt with Dr. Mcbride on October 07 (Will be going to [place], leaving by October 19 until late December/early January.) Last visit I advised her to decrease prednisolone to BID OU but she did not decrease until around 09/20/15 due to confusion about instructions. IOP is still too high in the right eye and Dr. Wright is concerned that surgery is going to be necessary. However, since she is going away for several months, surgery will not be feasible. We will continue to try to taper steroid gtts. Prednisolone eye drops - both eyes: continue 2 times per day. On 10/04/15, decrease to 1 time per day. She should first try more frequent artificial tears if she thinks she is having recurrent uveitis. Gave her my company secretary's number to call if she thinks she is having recurrent uveitis, since I wouldlike to see her BEFORE she increases or changes steroid gtts. She should see Dr. Mcbride as planned on 10/08/15 Dr. Wright and I will see her during the week of 10/16/15. PAGE WMS to see her in Dr. Wright's exam bev. 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 [address] [phone] 09/17/2024 1:30 PM CDT Office Visit Department of Internal Medicine in [place], [place] [address] [phone] Elissa Luo P.A.-C., M.S. [address] [address] 09/18/2024 8:00 AM CDT Clinical Support Department of Oncology in [place], [place] [address] [place] [phone] Blossom Hernandez M.S.W., L.I.C.S.W. [address] [place] [phone] 09/20/2024 10:00 AM CDT Telemedicine Department of Oncology in [place], [place] [address] [place] [phone] Kerrie Vela M.B., B.ChForeign, M.DForeign [address] [place] [phone] 09/24/2024 8:30 AM CDT Lab Department of Oncology in [place], [place] [address] [place] [phone] Kerrie Vela M.B., B.ChForeign, M.DForeign [address] [place] [phone] 09/24/2024 9:40 AM CDT Office Visit Department of Oncology in [place], [place] [address] [place] [phone] Kerrie Vela M.B., B.Ch., M.D. [address] [place] [phone] 09/24/2024 10:20 AM CDT Education Department of Oncology in [place], [place] [address] [place] [phone] Kerrie Vela M.B., B.Ch., M.DForeign [address] [place] [phone] 09/24/2024 11:30 AM CDT Appointment [facility] [place], [facility], [facility], [place] [place] [address] [place] [address] Kerrie Vela M.B., B.Ch., M.DForeign [address] [place] [phone] 09/25/2024 8:30 AM CDT Appointment [facility], [facility], [facility] [address] [place] [phone] Kerrie Vela M.B., B.ChForeign, M.DForeign [address] [place] [phone] 09/26/2024 8:30 AM CDT Appointment [facility], [facility], [facility] [address] [place] [phone] Kerrie Vela M.B., B.ChForeign, M.DForeign [address] [place] [phone] 09/28/2024 11:45 AM CDT Lab Department of Oncology in [place], [place] [address] [place] [phone] Kerrie Vela M.B., B.Ch., M.DForeign [address] [place] [phone] 09/28/2024 1:40 PM CDT Office Visit Department of Oncology in [place], [place] [address] [place] [phone] Dawood Ruiz P.A.-C. [address] [place] [phone] 10/01/2024 8:00 AM CDT Appointment [facility], [facility], [facility] [address] [place] [phone] Kerrie Vela M.B., B.Ch., M.DForeign [address] [place] [phone] 10/02/2024 8:00 AM CDT Appointment [facility], [facility], [facility] [address] [place] [phone] Kerrie Vela M.B., BForeignChForeign, M.DForeign [address] [place] [phone] 10/03/2024 8:00 AM CDT Appointment [facility], [facility], [facility] Level [address] [place] [phone] Kerrie Vela M.B., BDuran, M.Cecelia [address] [place] [phone] 10/10/2024 6:30 AM CDT Lab Department of Oncology in [place], [place] [address] [place] [phone] Kerrie Vela M.B., B.ChForeign, M.D. [address] [place] [phone] 10/10/2024 8:20 AM CDT Office Visit Department of Oncology in [place], [place] [address] [place] [phone] Brittney Stuart M.D. [address] [place] [phone] 10/10/2024 12:30 PM CDT Infusion Department of Oncology in [place], [place] [address] [place] [phone] Kerrie Vela M.B., B.ChForeign, M.D. [address] [place] [phone] 10/12/2024 11:20 AM CDT Office Visit Department of Oncology in [place], [place] [address] [place] [phone] Kerrie Vela M.B., BDuran, M.DForeign [address] [place] [phone] 10/17/2024 1:00 PM CDT Office Visit Department of Ophthalmology in [place], [place] [address] [place] [phone] Tomás Mcbride M.D. [address] [place] [phone] 10/23/2024 8:45 AM CDT Lab Department of Oncology in [place], [place] [address] [place] [phone] Kerrie Vela M.B., B., M.DForeign [address] [place] [phone] 10/23/2024 11:00 AM CDT Office Visit Department of Oncology in [place], [place] [address] [place] [phone] Kerrie Vela M.B., B., M.DForeign [address] [place] [phone] 10/23/2024 11:30 AM CDT Appointment Department of Radiology in [place], [place] [address] [place] [phone] Franny Dutta M.D. [address] [place] [phone] 10/24/2024 7:30 AM CDT Infusion Department of Oncology in [place], [place] [address] [place] [phone] Kerrie Vela M.B., BForeignChForeign, MForeignDForeign [address] [place] [phone] 10/24/2024 11:00 AM CDT Appointment Department of Radiation Oncology in [place], [place] [address] [place] [phone] Franny Dutta M.D. [address] [place] [phone] 10/25/2024 11:00 AM CDT Office Visit Department of Oncology in [place], [place] [address] [place] [phone] Kerrie Vela M.B., BForeignChForeign, M.DForeign [address] [place] [phone] 11/06/2024 7:00 AM CDT Lab Department of Oncology in [place], [place] [address] [place] [phone] Kerrie Vela M.B., B.ChForeign, M.DForeign [address] [place] [phone] 11/06/2024 9:00 AM CDT Office Visit Department of Oncology in [place], [place] [address] [place] [phone] Dawood Ruiz P.A.-C. [address] [place] [phone] 11/06/2024 10:00 AM CDT Infusion Department of Oncology in [place], [place] [address] [place] [phone] Kerrie Vela M.B., B.ChForeign, M.DForeign [address] [place] [phone] 11/20/2024 6:30 AM CDT Lab Department of Laboratory Medicine and Pathology, [facility], in [place], [place] [address] [place] [phone] Kerrie Vela M.B., B.Ch., M.D. [address] [place] [phone] 11/20/2024 8:20 AM CDT Office Visit Department of Oncology in [place], [place] [address] [place] [phone] Dawood Ruiz P.A.-C. [address] [place] [phone] 11/20/2024 9:00 AM CDT Infusion Department of Oncology in [place], [place] [address] [place] [phone] Kerrie Vela M.B., B.Ch., M.D. [address] [place] [phone] 12/04/2024 8:30 AM CDT Lab Department of Laboratory Medicine and Pathology, [facility], in [place], [place] [address] [place] [phone] Kerrie Vela M.B., B.Ch., M.D. [address] [place] [phone] 12/04/2024 10:20 AM CDT Office Visit Department of Oncology in [place], [place] [address] [place] [phone] Kerrie Vela M.B., B.Ch., M.D. [address] [place] [phone] 12/04/2024 11:00 AM CDT Infusion Department of Oncology in [place], [place] [address] [place] [address] Kerrie Vela M.B., [place] Murray [address] [place] [address] documented as of this encounter Visit Diagnoses Not on filedocumented in this encounter Additional Health Concerns Infection Onset Date Last Indicated Resolved Time COVID19 Pending 09/25/2019 09/25/2019 09/26/2019 1 :51 AM CDT COVID19 Pending 11/08/2019 11/08/2019 11/09/2019 1 :40 AM CDT COVID19 Pending 12/20/2019 12/20/2019 12/21/2019 1 1:51 AM CDT Protective Environment 02/21/2023 02/21/202305/08 5:44 AM SENIOR SALES COMPENSATION ANALYST Protective Environment 05/11/2023 05/11/202306/13 6:17 AM SENIOR SALES COMPENSATION ANALYST Protective Environment 06/27/2023 06/27/202310/15 5:30 AM CDT Protective Environment 10/28/2023 10/28/202306/25 5:58 AM SENIOR SALES COMPENSATION ANALYST Protective Environment 07/05/2024 07/05/202409/02 6:26 AM CDT Assessment Noted Time PHQ-9 Depression Total Score: 0 08/01/19 15 8:33 AM SENIOR SALES COMPENSATION ANALYST documented as of this encounter Care Teams Hat Binder Relationship Specialty Start Date End Date Jenny Vaca M.D. [address] [place] [phone] PCP - General 11/11/16 documented as of this encounter
--- OUTSIDE RECORDS SUMMARY | 2024-09-13 12:43 | XMS_ITS | Encounter Summary ---
Author Organization [facility] Address [address] [place] [address] Care Team Providers Care Tube Wrapper Name Role Phone Jenny Vaca M.D. Primary Care Provider [phone] Encounter Details Date Type Department Care Team (Late st Contact Info) Description 07/14/2015 Historical Ophthalmology RST OPH Richard Wright M.D., M.S. [address] [place] [address] Social History Tobacco Use Types Packs/Day Years Used Date Smoking Tobacco: Never Assessed Comments Unknown Sex and Gender Information Value Date Recorded Sex Assigned at Not on file Legal Sex Female 8:27 AM TOOL AND DIE MAKER LEVEL FIVE Gender Identity Female 04/06/2017 8:58 AM TOOL AND DIE MAKER LEVEL FIVE Sexual Orientation Straight 04/06/2017 8: 58 AM TOOL AND DIE MAKER LEVEL FIVE documented as of this encounter Progress Notes * Richard Wright M.D. 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 Vision hasbeen stable. She will be back on for laser and ultrasound to be done. Patient denies ocular pain. Denies flashes of light. Floaters, right eye, on and off, not new. IMPRESSION / REPORT / PLAN #1 Steroid [...] instead of glaucoma IOP borderline right, acceptable left; but IOP typically lower in AM Recommend SLT left Risks, benefits and alternatives discussed and all questions answered. Patient wishes to proceed. 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 She is not sure if she has been tapered to once daily since this started circa 2011. Decrease PF to bid right, increase to qid left s/p SLT Would benefit from Uveitis consult [...] both eyes CDM Reports - EYEGEN Id: [id number] Status: Fnl documented in this encounter Plan of Treatment Upcoming Encounters Date Type Department Care Team (Late st Contact Info) Description 09/14/2024 11:00 AM CDT Admin Visit Department of Oncology in [place], [place] [address] [place] [address] 09/17/2024 8:00 AM CDT Lab Department of Infusion Therapy in [place], [place] [address] [place] [address] Jenny Vaca M.D. [address] [place] [phone] 09/17/2024 1:30 PM CDT Office Visit Department of Internal Medicine in [place], [place] [address] [place] [address] Elissa Luo P.A.-C., M.S. [address] [place] [address] 09/18/2024 8:00 AM CDT Clinical Support Department of Oncology in [place], [place] [address] [place] [phone] Blossom Hernandez, M.S.W., L.I.C.S.W. [address] [place] [phone] 09/20/2024 10:00 AM CDT Telemedicine Department of Oncology in [place], [place] [address] [place] [phone] Kerrie Vela M.B., B.Ch., M.D. [address] [place] [phone] 09/24/2024 8:30 AM CDT Lab Department of Oncology in [place], [place] [address] [place] [phone] Kerrie Vela M.B., B.Ch., M.D. [address] [place] [phone] 09/24/2024 9:40 AM CDT Office Visit Department of Oncology in [place], [place] [address] [place] [address] Kerrie Vela M.B., B.Ch., M.D. [address] [place] [phone] 09/24/2024 10:20 AM CDT Education Department of Oncology in [place], [place] [address] [place] [phone] Kerrie Vela M.B., BDuran, M.DForeign [address] [place] [phone] 09/24/2024 11:30 AM CDT Appointment [facility], [facility], [facility] [address] [place] [phone] Kerrie Vela M.B., Trevor, M.DForeign [address] [place] [phone] 09/25/2024 8:30 AM CDT Appointment [facility], [facility], [facility] [address] [place] [phone] Kerrie Vela M.B., BDuran, M.DForeign [address] [place] [phone] 09/26/2024 8:30 AM CDT Appointment [facility], [facility], [facility] [address] [place] [phone] Kerrie Vela M.B., B.ChForeign, M.DForeign [address] [place] [phone] 09/28/2024 11:45 AM CDT Lab Department of Oncology in [place], [place] [address] [place] [phone] Kerrie Vela M.B., B.ChForeign, M.DForeign [address] [place] [phone] 09/28/2024 1:40 PM CDT Office Visit Department of Oncology in [place], [place] [address] [place] [phone] Dawood Ruiz P.A.-C. [address] [place] [phone] 10/01/2024 8:00 AM CDT Appointment [facility], [facility], [facility] [address] [place] [phone] Kerrie Vela M.B., Trevor, M.DForeign [address] [place] [phone] 10/02/2024 8:00 AM CDT Appointment [facility], [facility], [facility] [address] [place] [phone] Kerrie Vela M.B., BDuran, M.DForeign [address] [place] [phone] 10/03/2024 8:00 AM CDT Appointment [facility], [facility], [facility] [address] [place] [phone] Kerrie Vela M.B., BDuran, M.DForeign [address] [place] [phone] 10/10/2024 6:30 AM CDT Lab Department of Oncology in [place], [place] [address] [place] [phone] Kerrie Vela M.B., B.ChForeign, M.D. [address] [place] [phone] 10/10/2024 8:20 AM CDT Office Visit Department of Oncology in [place], [place] [address] [place] [phone] Brittney Stuart M.D. [address] [place] [phone] 10/10/2024 12:30 PM CDT Infusion Department of Oncology in [place], [place] [address] [place] [phone] Kerrie Vela M.B., B.Ch., M.D. [address] [place] [phone] 10/12/2024 11:20 AM CDT Office Visit Department of Oncology in [place], [place] [address] [place] [phone] Kerrie Vela M.B., B.Ch., M.D. [address] [place] [phone] 10/17/2024 1:00 PM CDT Office Visit Department of Ophthalmology in [place], [place] [address] [place] [phone] Tomás Mcbride M.D. [address] [place] [phone] 10/23/2024 8:45 AM CDT Lab Department of Oncology in [place], [place] [address] [place] [phone] Kerrie Vela M.B., B.Ch., M.D. [address] [place] [phone] 10/23/2024 11:00 AM CDT Office Visit Department of Oncology in [place], [place] [address] [place] [phone] Kerrie Vela M.B., BDuran, MPhuc [address] [place] [phone] 10/23/2024 11:30 AM CDT Appointment Department of Radiology in [place], [place] [address] [place] [address] Franny Dutta M.D. [address] [place] [phone] 10/24/2024 7:30 AM CDT Infusion Department of Oncology in [place], [place] [address] [place] [address] Kerrie Vela M.B., BDuran, MPhuc [address] [place] [phone] 10/24/2024 11:00 AM CDT Appointment Department of Radiation Oncology in [place], [place] [address] [place] [phone] Franny Dutta M.D. [address] [place] [phone] 10/25/2024 11:00 AM CDT Office Visit Department of Oncology in [place], [place] [address] [place] [phone] Kerrie Vela M.B., B., M.DForeign [address] [place] [phone] 11/06/2024 7:00 AM CDT Lab Department of Oncology in [place], [place] [address] [place] [phone] Kerrie Vela M.B., B.ChForeign, M.DForeign [address] [place] [phone] 11/06/2024 9:00 AM CDT Office Visit Department of Oncology in [place], [place] [address] [place] [address] Dawood Ruiz, P.A.-CForeign [address] [place] [phone] 11/06/2024 10:00 AM CDT Infusion Department of Oncology in [place], [place] [address] [place] [address] Kerrie Vela M.B., B.ChForeign, M.DForeign [address] [place] [phone] 11/20/2024 6:30 AM CDT Lab Department of Laboratory Medicine and Pathology, [facility] in [place], [place] [address] [place] [address] Kerrie Vela M.B., B.Ch., M.DForeign [address] [place] [phone] 11/20/2024 8:20 AM CDT Office Visit Department of Oncology in [place], [place] [address] [place] [phone] Dawood Ruiz P.A.-CForeign [address] [place] [phone] 11/20/2024 9:00 AM CDT Infusion Department of Oncology in [place], [place] [address] [place] [address] Kerrie Vela M.B., B.ChForeign, M.DForeign [address] [place] [phone] 12/04/2024 8:30 AM CDT Lab Department of Laboratory Medicine and Pathology, [facility], in [place], [place] [address] [place] [phone] Kerrie Vela M.B., B.Ch., M.D. [address] [place] [phone] 12/04/2024 10:20 AM CDT Office Visit Department of Oncology in [place], [place] [address] [place] [phone] Kerrie Vela M.B., B.Ch., M.D. [address] [place] [phone] 12/04/2024 11:00 AM CDT Infusion Department of Oncology in [place], [place] [address] [place] [phone] Kerrie Vela M.B., B.Ch., M.D. [address] [place] [phone] documented as of this encounter Visit Diagnoses Not on filedocumented in this encounter Additional Health Concerns Infection Onset Date Last Indicated Resolved Time COVID19 Pending 09/25/2019 09/25/2019 09/26/2019 1 :51 AM CDT COVID19 Pending 11/08/2019 11/08/2019 11/09/2019 1 :40 AM CDT COVID19 Pending 12/20/2019 12/20/2019 12/21/2019 1 1:51 AM CDT Protective Environment 02/21/2023 02/21/202305/08 5:44 AM TOOL AND DIE MAKER LEVEL FIVE Protective Environment 05/11/2023 05/11/202306/13 6:17 AM TOOL AND DIE MAKER LEVEL FIVE Protective Environment 06/27/2023 06/27/202310/15 5:30 AM CDT Protective Environment 10/28/2023 10/28/202306/25 5:58 AM TOOL AND DIE MAKER LEVEL FIVE Protective Environment 07/05/2024 07/05/202409/02 6:26 AM CDT Assessment Noted Time PHQ-9 Depression Total Score: 0 08/01/19 8:33 AM TOOL AND DIE MAKER LEVEL FIVE documented as of this encounter Care Teams Tube Wrapper Relationship Specialty Start Date End Date Jenny Vaca M.D. [address] [place] [phone] PCP - General 11/11/16 documented as of this encounter
--- OUTSIDE RECORDS SUMMARY | 2024-09-13 12:43 | XMS_ITS | Encounter Summary ---
Author Organization [facility] Address [address] [place] [address] Care Team Providers Care Systems Architect Name Role Phone Jenny Vaca M.D. Primary Care Provider Encounter Details Date Type Department Care Team (Late st Contact Info) Description 01/08/2009 Historical Ophthalmology RST OPH Maria Eugenia Cifuentes M.D. [address] [place] [phone] Social History Tobacco Use Types Packs/Day Years Used Date Smoking Tobacco: Never Assessed Comments Unknown Sex and Gender Information Value Date Recorded Sex Assigned at Not on file Legal Sex Female 8:27 AM DORR OPERATOR Gender Identity Female 04/06/2017 8:58 AM DORR OPERATOR Sexual Orientation Straight 04/06/2017 8: 58 AM DORR OPERATOR documented as of this encounter Progress Notes * Maria Eugenia Cifuentes M.D. - 01/08/2009 7:49 AM CDT Eye General CHIEF COMPLAINT Proliferative Diabetic Retinopathy both eyes, Cystoid Macular Edema both eyes HISTORY OF PRESENT ILLNESS Patient returns for a follow-up, Proliferative Diabetic Retinopathy both eyes, Cystoid Macular Edema both eyes . Last Triesence injection. left eye 11/27/2008. Notes that the blurred vision has improved, left eye. No new eye concerns today. Denies flashing lights or floaters. Patient denies ocular pain. IMPRESSION / REPORT / PLAN #1 PDR [...] 12/04: NVD resolved PPVx Rt 05/06 OCT 12/05 Right eye: shows trace cystic changes 01/05 Left eye: shows no CME. 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 [address] [place] [phone] 09/17/2024 1:30 PM CDT Office Visit Department of Internal Medicine in [place], [place] [address] [place] [phone] Elissa Luo P.A.-C., M.S. [address] [phone] 09/18/2024 8:00 AM CDT Clinical Support Department of Oncology in [place], [place] [address] [place] [phone] Blossom Hernandez M.S.W., L.I.C.S.W. [address] [place] [phone] 09/20/2024 10:00 AM CDT Telemedicine Department of Oncology in [place], [place] [address] [place] [phone] Kerrie Vela M.B., B.Ch., M.D. [address] [place] [phone] 09/24/2024 8:30 AM CDT Lab Department of Oncology in [place], [place] [address] [place] [phone] Kerrie Vela M.B., B.Ch., M.D. [address] [place] [phone] 09/24/2024 9:40 AM CDT Office Visit Department of Oncology in [place], [place] [address] [place] [phone] Kerrie Vela M.B., B.Ch., M.D. [address] [place] [phone] 09/24/2024 10:20 AM CDT Education Department of Oncology in [place], [place] [address] [place] [phone] Kerrie Vela M.B., B.Ch., M.D. [address] [place] [phone] 09/24/2024 11:[address] [facility], [facility], [facility] [address] [place] [phone] Kerrie Vela M.B., BDuran, M.DForeign [address] [place] [phone] 09/25/2024 8:[address] [facility], [facility], [facility] [address] [place] [phone] Kerrie Vela M.B., Trevor, MPhuc [address] [place] [phone] 09/26/2024 8:[address] [facility], [facility], [facility] [address] [place] [phone] Kerrie Vela M.B., BDuran, M.DForeign [address] [place] [phone] 09/28/2024 11:45 AM CDT Lab Department of Oncology in [address] [phone] Kerrie Vela M.B., B.ChForeign, M.DForeign [address] [place] [phone] 09/28/2024 1:40 PM CDT Office Visit Department of Oncology in [place], [place] [address] [place] [phone] Dawood Ruiz P.A.-C. [address] [place] [phone] 10/01/2024 8:[address] [facility], [facility], [facility] [address] [place] [phone] Kerrie Vela M.B., B.ChForeign, M.DForeign [address] [place] [phone] 10/02/2024 8:[address] [facility], [facility], [facility] [address] [place] [phone] Kerrie Vela M.B., B.ChForeign, M.D. [address] [place] [phone] 10/03/2024 8:[address] [facility], [facility], [facility] [address] [place] [phone] Kerrie Vela M.B., B.ChForeign, M.DForeign [address] [place] [phone] 10/10/2024 6:30 AM CDT Lab Department of Oncology in [place], [place] [address] [place] [phone] Kerrie Vela M.B., B.Ch., M.D. [address] [place] [phone] 10/10/2024 8:20 AM CDT Office Visit Department of Oncology in [place], [place] [address] [place] [phone] Brittney Stuart M.D. [address] [place] [phone] 10/10/2024 12:30 PM CDT Infusion Department of Oncology in [place], [place] [address] [place] [phone] Kerrie Vela M.B., BDuran, M.D. [address] [place] [phone] 10/12/2024 11:20 AM CDT Office Visit Department of Oncology in [place], [place] [address] [place] [phone] Kerrie Vela M.B., B.ChForeign, M.DForeign [address] [place] [phone] 10/17/2024 1:00 PM CDT Office Visit Department of Ophthalmology in [place], [place] [address] [phone] Tomás Mcbride M.D. [address] [phone] 10/23/2024 8:45 AM CDT Lab Department of Oncology in [address] [phone] Kerrie Vela M.B., B.Ch., M.D. [address] [place] [phone] 10/23/2024 11:00 AM CDT Office Visit Department of Oncology in [address] [phone] Kerrie Vela M.B., B.Ch., M.D. [address] [place] [phone] 10/23/2024 11:30 AM CDT Appointment Department of Radiology in [place], [place] [address] [place] [phone] Franny Dutta M.D. [address] [place] [phone] 10/24/2024 7:30 AM CDT Infusion Department of Oncology in [place], [place] [address] [place] [phone] Kerrie Vela M.B., B.ChForeign, M.DForeign [address] [place] [phone] 10/24/2024 11:00 AM CDT Appointment Department of Radiation Oncology in [place], [place] [address] [place] [phone] Franny Dutta M.D. [address] [place] [phone] 10/25/2024 11:00 AM CDT Office Visit Department of Oncology in [place], [place] [address] [place] [phone] Kerrie Vela M.B., B.ChForeign, M.D. [address] [place] [phone] 11/06/2024 7:00 AM CDT Lab Department of Oncology in [place], [place] [address] [place] [phone] Kerrie Vela M.B., B.ChForeign, M.D. [address] [place] [phone] 11/06/2024 9:00 AM CDT Office Visit Department of Oncology in [place], [place] [address] [place] [phone] Dawood Ruiz P.A.-CForeign [address] [place] [phone] 11/06/2024 10:00 AM CDT Infusion Department of Oncology in [place], [place] [address] [place] [address] Kerrie Vela M.B., B.ChForeign, M.DForeign [address] [place] [phone] 11/20/2024 6:30 AM CDT Lab Department of Laboratory Medicine and Pathology, [place], [place] [address] [place] [phone] Kerrie Vela M.B., B.ChForeign, M.DForeign [address] [place] [phone] 11/20/2024 8:20 AM CDT Office Visit Department of Oncology in [place], [place] [address] [place] [phone] Dawood Ruiz P.A.-CForeign [address] [place] [phone] 11/20/2024 9:00 AM CDT Infusion Department of Oncology in [place], [place] [address] [place] [phone] Kerrie Vela M.B., B.ChForeign, M.D. [address] [place] [phone] 12/04/2024 8:30 AM CDT Lab Department of Laboratory Medicine and Pathology, [facility] in [place], [place] [address] [place] [address] Kerrie Vela M.B., B.ChForeign, M.DForeing [address] [place] [phone] 12/04/2024 10:20 AM CDT Office Visit Department of Oncology in [place], [place] [address] [place] [address] Kerrie Vela M.B., Trevor, MPhuc [address] [place] [address] 12/04/2024 11:00 AM CDT Infusion Department of Oncology in [place], [place] [address] [place] [address] Kerrie Vela M.B., Trevor, MPhuc [address] [place] [address] documented as of this encounter Visit Diagnoses Not on filedocumented in this encounter Additional Health Concerns Infection Onset Date Last Indicated Resolved Time COVID19 Pending 09/25/2019 09/25/2019 09/26/2019 1 :51 AM CDT COVID19 Pending 11/08/2019 11/08/2019 11/09/2019 1 :40 AM CDT COVID19 Pending 12/20/2019 12/20/2019 12/21/2019 1 1:51 AM CDT Protective Environment 02/21/2023 02/21/202305/08 5:44 AM DORR OPERATOR Protective Environment 05/11/2023 05/11/202306/13 6:17 AM DORR OPERATOR Protective Environment 06/27/2023 06/27/202310/15 5:30 AM CDT Protective Environment 10/28/2023 10/28/202306/25 5:58 AM DORR OPERATOR Protective Environment 07/05/2024 07/05/202409/02 6:26 AM CDT documented as of this encounter Care Teams Systems Architect Relationship Specialty Start Date End Date Jenny Vaca M.D. [address] [place] [phone] PCP - General 11/11/16 documented as of this encounter
--- OUTSIDE RECORDS SUMMARY | 2024-09-13 12:43 | XMS_ITS | Encounter Summary ---
Author Organization [facility] Address [address] [place] [address] Care Team Providers Care Wire Bound Box Machine Helper Name Role Phone Jenny Vaca M.D. Primary Care Provider Encounter Details Date Type Department Care Team (Late st Contact Info) Description 02/07/2008 Historical Ophthalmology RST OPH Maria Eugenia Cifuentes M.D. [address] [place] [address] Social History Tobacco Use Types Packs/Day Years Used Date Smoking Tobacco: Never Assessed Comments Unknown Sex and Gender Information Value Date Recorded Sex Assigned at Not on file Legal Sex Female 8:27 AM ETHNOGRAPHER Gender Identity Female 04/06/2017 8:58 AM ETHNOGRAPHER Sexual Orientation Straight 04/06/2017 8: 58 AM ETHNOGRAPHER documented as of this encounter Progress Notes * Maria Eugenia Cifuentes M.D. - 02/07/2008 8:15 AM CDT Eye General CHIEF COMPLAINT follow up intravitreal/intraretinal hemorrhages, right eye HISTORY OF PRESENT ILLNESS Patient returns for follow up intravitreal/intraretinal hemorrhages, right eye. She had an Avastin injection on 12/06/07 in the right eye. She tolerated the injection well. She denies any flashes, floaters or diplopia. Patient denies ocular pain. IMPRESSION / REPORT [...] avastin injection, right eye 12/04: NVD resolved OCT 10/25: right eye: no CME in fovea; mild CME temporally left eye: trace CME with epiretinal memrane Plan: NVD resolved after avastin. Vision 20/25. Continue to follow. No need for PPV at this time. 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 [address] [address] 09/17/2024 1:30 PM CDT Office Visit Department of Internal Medicine in [place], [place] [address] [phone] Elissa Luo P.A.-C., M.S. [address] [phone] 09/18/2024 8:00 AM CDT Clinical Support Department of Oncology in [place], [place] [address] [place] [phone] Blossom Hernandez M.S.[place]., L.I.C.S.W. [address] [place] [phone] 09/20/2024 10:00 AM CDT Telemedicine Department of Oncology in [place], [place] [address] [place] [phone] Kerrie Vela M.B., B.Ch., M.D. [address] [place] [phone] 09/24/2024 8:30 AM CDT Lab Department of Oncology in [place], [place] [address] [place] [phone] Kerrie Vela M.B., B.Ch., M.D. [address] [place] [phone] 09/24/2024 9:40 AM CDT Office Visit Department of Oncology in [place], [place] [address] [place] [phone] Kerrie Vela M.B., B.Ch., M.D. [address] [place] [phone] 09/24/2024 10:20 AM CDT Education Department of Oncology in [address] [phone] Kerrie Vela M.B., B.Ch., M.D. [address] [place] [phone] 09/24/2024 11:30 AM CDT Appointment [facility], [facility], [facility] [address] [place] [phone] Kerrie Vela M.B., B.ChForeign, M.DForeign [address] [place] [phone] 09/25/2024 8:30 AM CDT Appointment [facility], [facility], [facility] [address] [place] [phone] Kerrie Vela M.B., B.ChForeign, M.D. [address] [place] [phone] 09/26/2024 8:30 AM CDT Appointment [facility], [facility], [facility] [address] [place] [phone] Kerrie Vela M.B., B.Ch., M.D. [address] [place] [phone] 09/28/2024 11:45 AM CDT Lab Department of Oncology in [place], [place] [address] [place] [phone] Kerrie Vela M.B., B.Ch., M.D. [address] [place] [phone] 09/28/2024 1:40 PM CDT Office Visit Department of Oncology in [place], [place] [address] [place] [phone] Dawood Ruiz P.A.-C. [address] [place] [phone] 10/01/2024 8:00 AM CDT Appointment [facility], [facility], [facility] [address] [place] [phone] Kerrie Vela M.B., B.ChForeign, M.DForeign [address] [place] [phone] 10/02/2024 8:00 AM CDT Appointment [facility], [facility], [facility] [address] [place] [phone] Kerrie Vela M.B., B.ChForeign, M.D. [address] [place] [phone] 10/03/2024 8:00 AM CDT Appointment [facility], [facility], [facility] [address] [place] [phone] Kerrie Vela M.B., B.Ch., M.DForeign [address] [place] [phone] 10/10/2024 6:30 AM CDT Lab Department of Oncology in [place], [place] [address] [place] [phone] Kerrie Vela M.B., B.Ch., M.D. [address] [place] [phone] 10/10/2024 8:20 AM CDT Office Visit Department of Oncology in [place], [place] [address] [place] [phone] Brittney Stuart M.D. [address] [place] [phone] 10/10/2024 12:30 PM CDT Infusion Department of Oncology in [place], [place] [address] [place] [phone] Kerrie Vela M.B., BDuran, M.D. [address] [place] [phone] 10/12/2024 11:20 AM CDT Office Visit Department of Oncology in [place], [place] [address] [place] [phone] Kerrie Vela M.B., BDuran, M.DForeign [address] [place] [phone] 10/17/2024 1:00 PM CDT Office Visit Department of Ophthalmology in [place], [place] [address] [place] [phone] Tomás Mcbride M.D. [address] [place] [phone] 10/23/2024 8:45 AM CDT Lab Department of Oncology in [address] [phone] Kerrie Vela M.B., B.ChForeign, M.DForeign [address] [place] [phone] 10/23/2024 11:00 AM CDT Office Visit Department of Oncology in [address] [phone] Kerrie Vela M.B., BDuran, M.D. [address] [place] [phone] 10/23/2024 11:30 AM CDT Appointment Department of Radiology in [place], [place] [address] [place] [address] Franny Dutta M.D. [address] [place] [phone] 10/24/2024 7:30 AM CDT Infusion Department of Oncology in [place], [place] [address] [place] [phone] Kerrie Vela M.B., B.ChForeign, M.DForeign [address] [place] [phone] 10/24/2024 11:00 AM CDT Appointment Department of Radiation Oncology in [place], [place] [address] [place] [phone] Franny Dutta M.D. [address] [place] [phone] 10/25/2024 11:00 AM CDT Office Visit Department of Oncology in [place], [place] [address] [place] [phone] Kerrie Vela M.B., B.ChForeign, M.D. [address] [place] [phone] 11/06/2024 7:00 AM CDT Lab Department of Oncology in [place], [place] [address] [place] [phone] Kerrie Vela M.B., B.ChForeign, M.DForeign [address] [place] [phone] 11/06/2024 9:00 AM CDT Office Visit Department of Oncology in [place], [place] [address] [place] [phone] Dawood Ruiz P.A.-C. [address] [place] [phone] 11/06/2024 10:00 AM CDT Infusion Department of Oncology in [place], [place] [address] [place] [phone] Kerrie Vela M.B., B.ChForeign, M.DForeign [address] [place] [phone] 11/20/2024 6:30 AM CDT Lab Department of Laboratory Medicine and Pathology, [facility] in [place], [place] [address] [place] [phone] Kerrie Vela M.B., B.ChForeign, M.D. [address] [place] [phone] 11/20/2024 8:20 AM CDT Office Visit Department of Oncology in [place], [place] [address] [place] [phone] Dawood Ruiz P.A.-C. [address] [place] [phone] 11/20/2024 9:00 AM CDT Infusion Department of Oncology in [place], [place] [address] [place] [phone] Kerrie Vela M.B., B.Ch., M.D. [address] [place] [phone] 12/04/2024 8:30 AM CDT Lab Department of Laboratory Medicine and Pathology, [facility] in [place], [place] [address] [place] [phone] Kerrie Vela M.B., B.Ch., M.D. [address] [place] [phone] 12/04/2024 10:20 AM CDT Office Visit Department of Oncology in [place], [place] [address] [place] [address] Kerrie Vela M.B., Trevor, MPhuc [address] [place] [phone] 12/04/2024 11:00 AM CDT Infusion Department of Oncology in [place], [place] [address] [place] [address] Kerrie Vela M.B., BDuran, MPhuc [address] [place] [phone] documented as of this encounter Visit Diagnoses Not on filedocumented in this encounter Additional Health Concerns Infection Onset Date Last Indicated Resolved Time COVID19 Pending 09/25/2019 09/25/2019 09/26/2019 1 :51 AM CDT COVID19 Pending 11/08/2019 11/08/2019 11/09/2019 1 :40 AM CDT COVID19 Pending 12/20/2019 12/20/2019 12/21/2019 1 1:51 AM CDT Protective Environment 02/21/2023 02/21/202305/08 5:44 AM ETHNOGRAPHER Protective Environment 05/11/2023 05/11/202306/13 6:17 AM ETHNOGRAPHER Protective Environment 06/27/2023 06/27/202310/15 5:30 AM CDT Protective Environment 10/28/2023 10/28/202306/25 5:58 AM ETHNOGRAPHER Protective Environment 07/05/2024 07/05/202409/02 6:26 AM CDT documented as of this encounter Care Teams Wire Bound Box Machine Helper Relationship Specialty Start Date End Date Jenny Vaca M.D. [address] [place] [phone] PCP - General 11/11/16 documented as of this encounter
--- OUTSIDE RECORDS SUMMARY | 2024-09-13 12:44 | XMS_ITS | Encounter Summary ---
Author Organization [facility] Address [address] [place] [address] Care Team Providers Care Instructor Weaving Name Role Phone Jenny Vaca M.D. Primary Care Provider [phone] Encounter Details Date Type Department Care Team (Late st Contact Info) Description 08/30/2007 Historical Ophthalmology RST OPH Maria Eugenia Cifuentes M.D. [address] [place] [phone] Social History Tobacco Use Types Packs/Day Years Used Date Smoking Tobacco: Never Assessed Comments Unknown Sex and Gender Information Value Date Recorded Sex Assigned at Not on file Legal Sex Female 8:27 AM HISTORIC CLOTHING AND COSTUME MAKER Gender Identity Female 04/06/2017 8:58 AM HISTORIC CLOTHING AND COSTUME MAKER Sexual Orientation Straight 04/06/2017 8: 58 AM HISTORIC CLOTHING AND COSTUME MAKER documented as of this encounter Progress Notes * Maria Eugenia Cifuentes M.D. - 08/30/2007 10:09 AM CDT Eye General CHIEF COMPLAINT follow up preservative-free intravitreal triamcinolone LE HISTORY OF PRESENT ILLNESS Patient states her vision is unchanged since the triamcinolone injection left eye. 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 Would continue to observe. #2 CME OU #3 cataract OS> OD, mild may return to Dr Mcbride for consideration of cataract surgery left eye. OCT results: right eye: no CME left eye: trace CME s/p preservative-free intravitreal triamcinolone LE 03/16/07 and RE 03/30/07 CME resolved s/p preservative-free intravitreal triamcinolone LE 07/13/07 FU in 8 wks with OCT both eyes DIAGNOSIS #1 PDR OU #2 CME OU #3 cataract OS> OD, mild CDM Reports - EYEGEN Id: [id number] Status: Fnl documented in this encounter Plan of Treatment Upcoming Encounters Date Type Department Care Team (Late st Contact Info) Description 09/14/2024 11:00 AM CDT Admin Visit Department of Oncology in [address] [phone] 09/17/2024 8:00 AM CDT Lab Department of Infusion Therapy in [place], [place] [address] [phone] Jenny Vaca M.D. [address] [phone] 09/17/2024 1:30 PM CDT Office Visit Department of Internal Medicine in [place], [place] [address] [phone] Elissa Luo P.A.-C., M.S. [address] [phone] 09/18/2024 8:00 AM CDT Clinical Support Department of Oncology in [place], [place] [address] [place] [phone] Blossom Hernandez, M.S.W., L.I.C.S.W. [address] [place] [phone] 09/20/2024 10:00 AM CDT Telemedicine Department of Oncology in [place], [place] [address] [place] [phone] Kerrie Vela M.B., BForeignChForeign, M.DForeign [address] [place] [phone] 09/24/2024 8:30 AM CDT Lab Department of Oncology in [place], [place] [address] [place] [phone] Kerrie Vela M.B., BForeignChForeign, M.DForeign [address] [place] [phone] 09/24/2024 9:40 AM CDT Office Visit Department of Oncology in [place], [place] [address] [place] [phone] Kerrie Vela M.B., B.Ch., M.D. [address] [place] [phone] 09/24/2024 10:20 AM CDT Education Department of Oncology in [place], [place] [address] [place] [phone] Kerrie Vela M.B., B.Ch., M.DForeign [address] [place] [phone] 09/24/2024 11:30 AM CDT Appointment [facility], [facility], [facility], [facility] [address] [place] [phone] Kerrie Vela M.B., B.Ch., M.DForeign [address] [place] [phone] 09/25/2024 8:30 AM CDT Appointment [facility], [facility], [facility] [address] [place] [phone] Kerrie Vela M.B., B.ChForeign, M.DForeign [address] [place] [phone] 09/26/2024 8:30 AM CDT Appointment [facility], [facility], [facility] [address] [place] [phone] Kerrie Vela M.B., B.ChForeign, M.DForeign [address] [place] [phone] 09/28/2024 11:45 AM CDT Lab Department of Oncology in [place], [place] [address] [place] [phone] Kerrie Vela M.B., B.Ch., M.D. [address] [place] [phone] 09/28/2024 1:40 PM CDT Office Visit Department of Oncology in [place], [place] [address] [place] [phone] Dawood Ruiz P.A.-C. [address] [place] [phone] 10/01/2024 8:00 AM CDT Appointment [facility] [address] [place] [phone] Kerrie Vela M.B., B.Ch., M.DForeign [address] [place] [phone] 10/02/2024 8:00 AM CDT Appointment [facility], [facility], [facility], [facility] [address] [place] [phone] Kerrie Vela M.B., BDuran, M.DForeign [address] [place] [phone] 10/03/2024 8:00 AM CDT Appointment [facility], [facility], [facility], [facility] [address] [place] [phone] Kerrie Vela M.B., B., M.DForeign [address] [place] [phone] 10/10/2024 6:30 AM CDT Lab Department of Oncology in [place], [place] [address] [place] [phone] Kerrie Vela M.B., B.Ch., M.D. [address] [place] [phone] 10/10/2024 8:20 AM CDT Office Visit Department of Oncology in [place], [place] [address] [place] [phone] Brittney Stuart M.D. [address] [place] [phone] 10/10/2024 12:30 PM CDT Infusion Department of Oncology in [place], [place] [address] [place] [phone] Kerrie Vela M.B., B.Ch., M.D. [address] [place] [phone] 10/12/2024 11:20 AM CDT Office Visit Department of Oncology in [place], [place] [address] [place] [phone] Kerrie Vela M.B., BDuran, M.DForeign [address] [place] [phone] 10/17/2024 1:00 PM CDT Office Visit Department of Ophthalmology in [place], [place] [address] [place] [phone] Tomás Mcbride M.D. [address] [place] [phone] 10/23/2024 8:45 AM CDT Lab Department of Oncology in [place], [place] [address] [place] [phone] Kerrie Vela M.B., B., M.DForeign [address] [place] [phone] 10/23/2024 11:00 AM CDT Office Visit Department of Oncology in [place], [place] [address] [place] [phone] Kerrie Vela M.B., B., M.D. [address] [place] [phone] 10/23/2024 11:30 AM CDT Appointment Department of Radiology in [place], [place] [address] [place] [phone] Franny Dutta M.D. [address] [place] [phone] 10/24/2024 7:30 AM CDT Infusion Department of Oncology in [place], [place] [address] [place] [phone] Kerrie Vela M.B., BForeignChForeign, MForeignDForeign [address] [place] [phone] 10/24/2024 11:00 AM CDT Appointment Department of Radiation Oncology in [place], [place] [address] [place] [address] Franny Dutta M.D. [address] [place] [phone] 10/25/2024 11:00 AM CDT Office Visit Department of Oncology in [place], [place] [address] [place] [phone] Kerrie Vela M.B., B.ChForeign, M.DForeign [address] [place] [phone] 11/06/2024 7:00 AM CDT Lab Department of Oncology in [place], [place] [address] [place] [phone] Kerrie Vela M.B., B.ChForeign, M.DForeign [address] [place] [phone] 11/06/2024 9:00 AM CDT Office Visit Department of Oncology in [place], [place] [address] [place] [phone] Dawood Ruiz P.A.-C. [address] [place] [phone] 11/06/2024 10:00 AM CDT Infusion Department of Oncology in [place], [place] [address] [place] [phone] Kerrie Vela M.B., B.ChForeign, M.DForeign [address] [place] [phone] 11/20/2024 6:30 AM CDT Lab Department of Laboratory Medicine and Pathology, [facility] in [place], [place] [address] [place] [phone] Kerrie Vela M.B., B.ChForeign, M.D. [address] [place] [phone] 11/20/2024 8:20 AM CDT Office Visit Department of Oncology in [place], [place] [address] [place] [phone] Dawood Ruiz P.A.-C. [address] [place] [phone] 11/20/2024 9:00 AM CDT Infusion Department of Oncology in [place], [place] [address] [place] [phone] Kerrie Vela M.B., B.Ch., M.D. [address] [place] [phone] 12/04/2024 8:30 AM CDT Lab Department of Laboratory Medicine and Pathology, [facility] in [place], [place] [address] [place] [address] Kerrie Vela M.B., B.Ch., M.D. [address] [place] [phone] 12/04/2024 10:20 AM CDT Office Visit Department of Oncology in [place], [place] [address] [place] [phone] Kerrie Vela M.B., B.Ch., M.D. [address] [place] [phone] 12/04/2024 11:00 AM CDT Infusion Department of Oncology in [place], [place] [address] [place] [address] Kerrie Vela M.B., BDuran, Alin [address] [place] [address] documented as of this encounter Visit Diagnoses Not on filedocumented in this encounter Additional Health Concerns Infection Onset Date Last Indicated Resolved Time COVID19 Pending 09/25/2019 09/25/2019 09/26/2019 1 :51 AM CDT COVID19 Pending 11/08/2019 11/08/2019 11/09/2019 1 :40 AM CDT COVID19 Pending 12/20/2019 12/20/2019 12/21/2019 1 1:51 AM CDT Protective Environment 02/21/2023 02/21/202305/08 5:44 AM HISTORIC CLOTHING AND COSTUME MAKER Protective Environment 05/11/2023 05/11/202306/13 6:17 AM HISTORIC CLOTHING AND COSTUME MAKER Protective Environment 06/27/2023 06/27/202310/15 5:30 AM CDT Protective Environment 10/28/2023 10/28/202306/25 5:58 AM HISTORIC CLOTHING AND COSTUME MAKER Protective Environment 07/05/2024 07/05/202409/02 6:26 AM CDT documented as of this encounter Care Teams Instructor Weaving Relationship Specialty Start Date End Date Jenny Vaca M.D. [address] [place] [phone] PCP - General 11/11/16 documented as of this encounter
--- OUTSIDE RECORDS SUMMARY | 2024-09-13 12:44 | XMS_ITS | Encounter Summary ---
Author Organization [facility] Address [address] [place] [address] Care Team Providers Care Alum Mixer Name Role Phone Jenny Vaca M.D. Primary Care Provider [phone] Encounter Details Date Type Department Care Team (Late st Contact Info) Description 03/16/2007 Historical Ophthalmology RST OPH Maria Eugenia Cifuentes M.D. [address] [place] [phone] Social History Tobacco Use Types Packs/Day Years Used Date Smoking Tobacco: Never Assessed Comments Unknown Sex and Gender Information Value Date Recorded Sex Assigned at Not on file Legal Sex Female 8:27 AM ULTRASOUND SUPERVISOR Gender Identity Female 04/06/2017 8:58 AM ULTRASOUND SUPERVISOR Sexual Orientation Straight 04/06/2017 8: 58 AM ULTRASOUND SUPERVISOR documented as of this encounter Progress Notes * Maria Eugenia Cifuentes M.D. - 03/16/2007 10:59 AM CDT Eye General CHIEF COMPLAINT decrease in vision; swelling behind both eyes HISTORY OF PRESENT ILLNESS Patient notes a slight decrease in near and distance vision in both eyes (left more than right) over the past 1.5 months. S/P PRP, right eye 03/07/07. 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 Blood sugars have dropped since December (ranging 103-120). Denies floaters, flashes of light and ocular pain. IMPRESSION / REPORT / PLAN #1 PDR OU s/p PRP OU #2 CME OU #3 cataract OU, mild get FA OCT transit left eye: Pt refused FA as she did not want an intravenous injection. OCT results: right eye: CME, new from 01/03 left eye: CME, worse than 01/03 Plan: preservative-free intravitreal triamcinolone LEFT eye today. Discussed risks, goals, alternatives, advance directives, and the necessity of other members of the healthcare team participating inthe procedure with the patient (or legal lead generation representative and others present during the discussion). The patient understands and wishes to proceed with the procedure. preservative-free intravitreal triamcinolone RIGHT eye in 2 weeks then FU in 6 wks with OCT both eyes. DIAGNOSIS #1 PDR OU #2 CME OU #3 cataract OU, mild CDM Reports - EYEGEN Id: [id number] Status: Fnl documented in this encounter Plan of Treatment Upcoming Encounters Date Type Department Care Team (Late st Contact Info) Description 09/14/2024 11:00 AM CDT Admin Visit Department of Oncology in [place], [place] [address] [place] [address] 09/17/2024 8:00 AM CDT Lab Department of Infusion Therapy in [place], [place] [address] [phone] Jenny Vaca M.D. [address] [phone] 09/17/2024 1:30 PM CDT Office Visit Department of Internal Medicine in [place], [place] [address] [phone] Elissa Luo P.A.-C., M.S. [address] [phone] 09/18/2024 8:00 AM CDT Clinical Support Department of Oncology in [address] [address] Blossom Hernandez M.S.[place]., L.I.C.S.W. [address] [place] [phone] 09/20/2024 10:00 AM CDT Telemedicine Department of Oncology in [place], [place] [address] [place] [phone] Kerrie Vela M.B., B.ChForeign, M.D. [address] [place] [phone] 09/24/2024 8:30 AM CDT Lab Department of Oncology in [address] [address] Kerrie Vela M.B., B.Ch., M.D. [address] [place] [phone] 09/24/2024 9:40 AM CDT Office Visit Department of Oncology in [address] [address] Kerrie Vela M.B., B.Ch., M.D. [address] [place] [phone] 09/24/2024 10:20 AM CDT Education Department of Oncology in [address] [address] Kerrie Vela M.B., B.Ch., M.D. [address] [place] [phone] 09/24/2024 11:30 AM CDT Appointment [facility], [facility], [facility] [address] [place] [phone] Kerrie Vela M.B., BDuran, M.DForeign [address] [place] [phone] 09/25/2024 8:30 AM CDT Appointment [facility], [facility], [facility] [address] [place] [phone] Kerrie Vela M.B., Trevor, M.DForeign [address] [place] [phone] 09/26/2024 8:30 AM CDT Appointment [facility], [facility], [facility] [address] [place] [address] Kerrie Vela M.B., BDuran, M.DForeign [address] [place] [phone] 09/28/2024 11:45 AM CDT Lab Department of Oncology in [place], [place] [address] [place] [phone] Kerrie Vela M.B., B.ChForeign, M.D. [address] [place] [phone] 09/28/2024 1:40 PM CDT Office Visit Department of Oncology in [place], [place] [address] [place] [phone] Dawood Ruiz P.A.-C. [address] [place] [phone] 10/01/2024 8:00 AM CDT Appointment [facility], [facility], [facility] [address] [place] [phone] Kerrie Vela M.B., Trevor, MPhuc [address] [place] [phone] 10/02/2024 8:00 AM CDT Appointment [facility], [facility], [facility] [address] [place] [address] Kerrie Vela M.B., Trevor, MPhuc [address] [place] [phone] 10/03/2024 8:00 AM CDT Appointment [facility], [facility], [address] [phone] Kerrie Vela M.B., Trevor, MForeignDForeign [address] [place] [phone] 10/10/2024 6:30 AM CDT Lab Department of Oncology in [place], [place] [address] [place] [phone] Kerrie Vela M.B., B., M.DForeign [address] [place] [phone] 10/10/2024 8:20 AM CDT Office Visit Department of Oncology in [place], [place] [address] [place] [phone] Brittney Stuart M.D. [address] [place] [phone] 10/10/2024 12:30 PM CDT Infusion Department of Oncology in [place], [place] [address] [place] [phone] Kerrie Vela M.B., B.ChForeign, M.DForeign [address] [place] [phone] 10/12/2024 11:20 AM CDT Office Visit Department of Oncology in [place], [place] [address] [place] [phone] Kerrie Vela M.B., B.ChForeign, M.D. [address] [place] [phone] 10/17/2024 1:00 PM CDT Office Visit Department of Ophthalmology in [place], [place] [address] [place] [phone] Tomás Mcbride M.D. [address] [place] [phone] 10/23/2024 8:45 AM CDT Lab Department of Oncology in [address] [phone] Kerrie Vela M.B., B.ChForeign, M.DForeign [address] [place] [phone] 10/23/2024 11:00 AM CDT Office Visit Department of Oncology in [place], [place] [address] [place] [phone] Kerrie Vela M.B., B.ChForeign, M.DForeign [address] [place] [phone] 10/23/2024 11:30 AM CDT Appointment Department of Radiology in [place], [place] [address] [place] [address] Franny Dutta M.D. [address] [place] [phone] 10/24/2024 7:30 AM CDT Infusion Department of Oncology in [place], [place] [address] [place] [phone] Kerrie Vela M.B., BDuran, MPhuc [address] [place] [phone] 10/24/2024 11:00 AM CDT Appointment Department of Radiation Oncology in [place], [place] [address] [place] [address] Franny Dutta M.D. [address] [place] [phone] 10/25/2024 11:00 AM CDT Office Visit Department of Oncology in [place], [place] [address] [place] [phone] Kerrie Vela M.B., B.ChForeign, M.DForeign [address] [place] [phone] 11/06/2024 7:00 AM CDT Lab Department of Oncology in [place], [place] [address] [place] [phone] Kerrie Vela M.B., B.ChForeign, M.DForeign [address] [place] [phone] 11/06/2024 9:00 AM CDT Office Visit Department of Oncology in [place], [place] [address] [place] [phone] Dawood Ruiz P.A.-C. [address] [place] [phone] 11/06/2024 10:00 AM CDT Infusion Department of Oncology in [place], [place] [address] [place] [phone] Kerrie Vela M.B., BDuran, M.DForeign [address] [place] [phone] 11/20/2024 6:30 AM CDT Lab Department of Laboratory Medicine and Pathology, [facility] in [place], [place] [address] [place] [phone] Kerrie Vela M.B., BDuran, M.DForeign [address] [place] [phone] 11/20/2024 8:20 AM CDT Office Visit Department of Oncology in [place], [place] [address] [place] [phone] Dawood Ruiz P.A.-C. [address] [place] [phone] 11/20/2024 9:00 AM CDT Infusion Department of Oncology in [place], [place] [address] [place] [phone] Kerrie Vela M.B., B.Ch., M.DForeign [address] [place] [phone] 12/04/2024 8:30 AM CDT Lab Department of Laboratory Medicine and Pathology, [facility] in [place], [place] [address] [place] [phone] Kerrie Vela M.B., B., M.D. [address] [place] [phone] 12/04/2024 10:20 AM CDT Office Visit Department of Oncology in [place], [place] [address] [place] [address] Kerrie Vela M.B., BDuran, MPhuc [address] [place] [address] 12/04/2024 11:00 AM CDT Infusion Department of Oncology in [place], [place] [address] [place] [address] Kerrie Vela M.B., Trevor, Alin [address] [place] [address] documented as of this encounter Visit Diagnoses Not on filedocumented in this encounter Additional Health Concerns Infection Onset Date Last Indicated Resolved Time COVID19 Pending 09/25/2019 09/25/2019 09/26/2019 1 :51 AM CDT COVID19 Pending 11/08/2019 11/08/2019 11/09/2019 1 :40 AM CDT COVID19 Pending 12/20/2019 12/20/2019 12/21/2019 1 1:51 AM CDT Protective Environment 02/21/2023 02/21/202305/08 5:44 AM ULTRASOUND SUPERVISOR Protective Environment 05/11/2023 05/11/202306/13 6:17 AM ULTRASOUND SUPERVISOR Protective Environment 06/27/2023 06/27/202310/15 5:30 AM CDT Protective Environment 10/28/2023 10/28/202306/25 5:58 AM ULTRASOUND SUPERVISOR Protective Environment 07/05/2024 07/05/202409/02 6:26 AM CDT documented as of this encounter Care Teams Alum Mixer Relationship Specialty Start Date End Date eJnny Vaca M.D. [address] [place] [phone] PCP - General 11/11/16 documented as of this encounter
--- OUTSIDE RECORDS SUMMARY | 2024-09-13 12:44 | XMS_ITS | Encounter Summary ---
Author Organization [facility] Address [address] [place] [address] Care Team Providers Care Title Specialist Name Role Phone Jenny Vaca M.D. Primary Care Provider [phone] Encounter Details Date Type Department Care Team (Late st Contact Info) Description 10/26/2007 Historical Ophthalmology RST OPH Maria Eugenia Cifuentes M.D. [address] [place] [phone] Social History Tobacco Use Types Packs/Day Years Used Date Smoking Tobacco: Never Assessed Comments Unknown Sex and Gender Information Value Date Recorded Sex Assigned at Not on file Legal Sex Female 8:27 AM DOG RAISER Gender Identity Female 04/06/2017 8:58 AM DOG RAISER Sexual Orientation Straight 04/06/2017 8: 58 AM DOG RAISER documented as of this encounter Progress Notes * Maria Eugenia Cifuentes M.D. - 10/26/2007 8:40 AM CDT Eye General CHIEF COMPLAINT follow up preservative-free intravitreal triamcinolone LE HISTORY OF PRESENT ILLNESS Note copied from Dr. Eleuterio ROLLE CDM dated 10/26/07. Patient denies ocular pain. No complaints. States that blood sugar was very low today. 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 Would continue to observe. 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 and macular ischemia left eye OCT results: right eye: no CME in fovea; mild CME temporally left eye: trace CME with epiretinal memrane FU in 12 wks with OCT both eyes DIAGNOSIS #1 PDR OU #2 CME OU #3 cataract OD #4 PCIOL OD #5 ERM left eye CDM Reports - EYEGEN Id: [id number] Status: Fnl documented in this encounter Plan of Treatment Upcoming Encounters Date Type Department Care Team (Late st Contact Info) Description 09/14/2024 11:00 AM CDT Admin Visit Department of Oncology in [place], [place] 200 [place] [address] 09/17/2024 8:00 AM CDT Lab Department of Infusion Therapy in [place], [place] [address] [phone] Jenny Vaca M.D. [address] [address] 09/17/2024 1:30 PM CDT Office Visit Department of Internal Medicine in [place], [place] [address] [place] [phone] Elissa Luo P.A.-C., M.S. [address] [address] 09/18/2024 8:00 AM CDT Clinical Support Department of Oncology in [place], [place] [address] [place] [address] Blossom Hernandez M.S.[place]., L.I.C.S.W. [address] [place] [phone] 09/20/2024 10:00 AM CDT Telemedicine Department of Oncology in [place], [place] [address] [place] [phone] Kerrie Vela M.B., B.ChForeign, M.D. [address] [place] [phone] 09/24/2024 8:30 AM CDT Lab Department of Oncology in [place], [place] [address] [place] [phone] Kerrie Vela M.B., B.ChForeign, M.DForeign [address] [place] [phone] 09/24/2024 9:40 AM CDT Office Visit Department of Oncology in [place], [place] [address] [place] [phone] Kerrie Vela M.B., B.ChForeign, M.D. [address] [place] [phone] 09/24/2024 10:20 AM CDT Education Department of Oncology in [place], [place] [address] [place] [phone] Kerrie Vela M.B., B.ChForeign, M.D. [address] [place] [phone] 09/24/2024 11:30 AM CDT Appointment [facility], [facility], [facility], L[facility] [address] [place] [phone] Kerrie Vela M.B., BDuran, M.D. [address] [place] [phone] 09/25/2024 8:30 AM CDT Appointment [facility], [facility], [facility] [address] [place] [phone] Kerrie Vela M.B., Trevor, M.DForeign [address] [place] [phone] 09/26/2024 8:30 AM CDT Appointment [facility], [facility], [address] [phone] Kerrie Vela M.B., BDuran, M.D. [address] [place] [phone] 09/28/2024 11:45 AM CDT Lab Department of Oncology in [address] [phone] Kerrie Vela M.B., Trevor, M.D. [address] [place] [phone] 09/28/2024 1:40 PM CDT Office Visit Department of Oncology in [place], [place] [address] [place] [phone] Dawood Ruiz P.A.-C. [address] [place] [phone] 10/01/2024 8:00 AM CDT Appointment [facility], [facility], [facility] [address] [place] [phone] Kerrie Vela M.B., BDuran, M.DForeign [address] [place] [phone] 10/02/2024 8:00 AM CDT Appointment [facility], [facility], [facility] [address] [place] [phone] Kerrie Vela M.B., BDuran, M.DForeign [address] [place] [phone] 10/03/2024 8:00 AM CDT Appointment [facility], [facility], [facility] [address] [place] [phone] Kerrie Vela M.B., Trevor, MPhuc [address] [place] [phone] 10/10/2024 6:30 AM CDT Lab Department of Oncology in [place], [place] [address] [place] [phone] Kerrie Vela M.B., BForeignChForeign, M.DForeign [address] [place] [phone] 10/10/2024 8:20 AM CDT Office Visit Department of Oncology in [place], [place] [address] [place] [phone] Brittney Stuart M.D. [address] [place] [phone] 10/10/2024 12:30 PM CDT Infusion Department of Oncology in [place], [place] [address] [place] [phone] Kerrie Vela M.B., B.ChForeign, M.D. [address] [place] [phone] 10/12/2024 11:20 AM CDT Office Visit Department of Oncology in [place], [place] [address] [place] [address] Kerrie Vela M.B., B.ChForeign, M.D. [address] [place] [phone] 10/17/2024 1:00 PM CDT Office Visit Department of Ophthalmology in [place], [place] [address] [place] [address] Tomás Mcbride M.D. [address] [place] [phone] 10/23/2024 8:45 AM CDT Lab Department of Oncology in [place], [place] [address] [place] [phone] Kerrie Vela M.B., B., M.D. [address] [place] [phone] 10/23/2024 11:00 AM CDT Office Visit Department of Oncology in [place], [place] [address] [place] [phone] Kerrie Vela M.B., B.Ch., M.D. [address] [place] [phone] 10/23/2024 11:30 AM CDT Appointment Department of Radiology in [place], [place] [address] [place] [address] Franny Dutta M.D. [address] [place] [phone] 10/24/2024 7:30 AM CDT Infusion Department of Oncology in [place], [place] [address] [place] [phone] Kerrie Vela M.B., BDuran, MPhuc [address] [place] [phone] 10/24/2024 11:00 AM CDT Appointment Department of Radiation Oncology in [place], [place] [address] [place] [phone] Franny Dutta M.D. [address] [place] [phone] 10/25/2024 11:00 AM CDT Office Visit Department of Oncology in [place], [place] [address] [place] [phone] Kerrie Vela M.B., BDuran, M.DForeign [address] [place] [phone] 11/06/2024 7:00 AM CDT Lab Department of Oncology in [address] [address] Kerrie Vela M.B., BDuran, M.DForeign [address] [place] [phone] 11/06/2024 9:00 AM CDT Office Visit Department of Oncology in [address] [address] Dawood Ruiz P.A.-C. [address] [place] [phone] 11/06/2024 10:00 AM CDT Infusion Department of Oncology in [address] [address] Kerrie Vela M.B., BDuran, M.DForeign [address] [place] [phone] 11/20/2024 6:30 AM CDT Lab Department of Laboratory Medicine and Pathology, [facility] in [place], [place] [address] [place] [address] Kerrie Vela M.B., BDuran, M.DForeign [address] [place] [phone] 11/20/2024 8:20 AM CDT Office Visit Department of Oncology in [place], [place] [address] [place] [phone] Dawood Ruiz P.A.-C. [address] [place] [phone] 11/20/2024 9:00 AM CDT Infusion Department of Oncology in [place], [place] [address] [place] [phone] Kerrie Vela M.B., B., M.DForeign [address] [place] [phone] 12/04/2024 8:30 AM CDT Lab Department of Laboratory Medicine and Pathology, [facility], in [place], [place] [address] [place] [address] Kerrie Vela M.B., B.ChForeign, M.DForeign [address] [place] [phone] 12/04/2024 10:20 AM CDT Office Visit Department of Oncology in [place], [place] [address] [place] [address] Kerrie Vela M.B.Trevor M.D. [address] [place] [address] 12/04/2024 11:00 AM CDT Infusion Department of Oncology in [place], [place] [address] [place] [address] Kerrie Vela M.B., Trevor, Alin [address] [place] [address] documented as of this encounter Visit Diagnoses Not on filedocumented in this encounter Additional Health Concerns Infection Onset Date Last Indicated Resolved Time COVID19 Pending 09/25/2019 09/25/2019 09/26/2019 1 :51 AM CDT COVID19 Pending 11/08/2019 11/08/2019 11/09/2019 1 :40 AM CDT COVID19 Pending 12/20/2019 12/20/2019 12/21/2019 1 1:51 AM CDT Protective Environment 02/21/2023 02/21/202305/08 5:44 AM DOG RAISER Protective Environment 05/11/2023 05/11/202306/13 6:17 AM DOG RAISER Protective Environment 06/27/2023 06/27/202310/15 5:30 AM CDT Protective Environment 10/28/2023 10/28/202306/25 5:58 AM DOG RAISER Protective Environment 07/05/2024 07/05/202409/02 6:26 AM CDT documented as of this encounter Care Teams Title Specialist Relationship Specialty Start Date End Date Jenny Vaca M.D. [address] [place] [phone] PCP - General 11/11/16 documented as of this encounter
--- OUTSIDE RECORDS SUMMARY | 2024-09-13 12:44 | XMS_ITS | Encounter Summary ---
Author Organization [facility] Address [address] [place] [address] Care Team Providers Care Kier Pleater Name Role Phone Jenny Vaca M.D. Primary Care Provider Encounter Details Date Type Department Care Team (Late st Contact Info) Description 07/25/2008 Historical Ophthalmology RST OPH Maria Eugenia Cifuentes M.D. [address] [place] [phone] Social History Tobacco Use Types Packs/Day Years Used Date Smoking Tobacco: Never Assessed Comments Unknown Sex and Gender Information Value Date Recorded Sex Assigned at Not on file Legal Sex Female 8:27 AM TDP DISPLAYS ANALYST Gender Identity Female 04/06/2017 8:58 AM TDP DISPLAYS ANALYST Sexual Orientation Straight 04/06/2017 8: 58 AM TDP DISPLAYS ANALYST documented as of this encounter Progress Notes * Maria Eugenia Cifuentes M.D. - 07/25/2008 9:08 AM CST Eye Postoperative MULTI-VISIT DOCUMENT This document contains multiple patient visits and is available for review in Document Viewer. CDM Reports - EYEPO Id: [id number] Status: Fnl documented in this encounter Plan of Treatment Upcoming Encounters Date Type Department Care Team (Late st Contact Info) Description 09/14/2024 11:00 AM CDT Admin Visit Department of Oncology in [place], [place] [address] [place] [phone] 09/17/2024 8:00 AM CDT Lab Department of Infusion Therapy in [place], [place] [address] [phone] Jenny Vaca M.D. [address] [phone] 09/17/2024 1:30 PM CDT Office Visit Department of Internal Medicine in [place], [place] [address] [phone] Elissa Luo, Jen., M.S. [address] [phone] 09/18/2024 8:00 AM CDT Clinical Support Department of Oncology in [place], [place] [address] [place] [phone] Blossom Hernandez M.S.W., L.I.C.S.W. [address] [place] [phone] 09/20/2024 10:00 AM CDT Telemedicine Department of Oncology in [place], [place] [address] [place] [phone] Kerrie Vela M.B., B.Ch., M.D. [address] [place] [phone] 09/24/2024 8:30 AM CDT Lab Department of Oncology in [place], [place] [address] [place] [address] Kerrie Vela M.B., BDuran, M.Cecelia [address] [place] [phone] 09/24/2024 9:40 AM CDT Office Visit Department of Oncology in [place], [place] [address] [place] [phone] Kerrie Vela M.B., BForeignChForeign, M.DForeign [address] [place] [phone] 09/24/2024 10:20 AM CDT Education Department of Oncology in [place], [place] [address] [place] [phone] Kerrie Vela M.B., BForeignChForeign, M.DForeign [address] [place] [phone] 09/24/2024 11:30 AM CDT Appointment [facility], [facility] [address] [place] [phone] Kerrie Vela M.B., B.ChForeign, M.DForeign [address] [place] [phone] 09/25/2024 8:30 AM CDT Appointment [facility], [facility] [address] [place] [phone] Kerrie Vela M.B., B.ChForeign, M.DForeign [address] [place] [phone] 09/26/2024 8:30 AM CDT Appointment [facility], [facility] [address] [place] [phone] Kerrie Vela M.B., BDuran, M.DForeign [address] [place] [phone] 09/28/2024 11:45 AM CDT Lab Department of Oncology in [place], [place] [address] [place] [phone] Kerrie Vela M.B., BForeignChForeign, M.DForeign [address] [place] [phone] 09/28/2024 1:40 PM CDT Office Visit Department of Oncology in [place], [place] [address] [place] [phone] Dawood Ruiz P.A.-C. [address] [place] [phone] 10/01/2024 8:00 AM CDT Appointment [facility], [facility] [address] [place] [phone] Kerrie Vela M.B., B.ChForeign, M.DForeign [address] [place] [phone] 10/02/2024 8:00 AM CDT Appointment [facility], [facility], [facility] [address] [place] [phone] Kerrie Vela M.B., B., M.DForeign [address] [place] [phone] 10/03/2024 8:00 AM CDT Appointment [facility], [facility], Lobby Level [address] [place] [address] Kerrie Vela M.B., BDuran, MhPuc [address] [place] [phone] 10/10/2024 6:30 AM CDT Lab Department of Oncology in [place], [place] [address] [place] [phone] Kerrie Vela M.B., BDuran, M.DForeign [address] [place] [phone] 10/10/2024 8:20 AM CDT Office Visit Department of Oncology in [address] [address] Brittney Stuart M.D. [address] [place] [phone] 10/10/2024 12:30 PM CDT Infusion Department of Oncology in [place], [place] [address] [place] [phone] Kerrie Vela M.B., B., M.D. [address] [place] [phone] 10/12/2024 11:20 AM CDT Office Visit Department of Oncology in [place], [place] [address] [place] [phone] Kerrie Vela M.B., B., M.DForeign [address] [place] [phone] 10/17/2024 1:00 PM CDT Office Visit Department of Ophthalmology in [place], [place] [address] [place] [phone] Tomás Mcbride M.D. [address] [place] [address] 10/23/2024 8:45 AM CDT Lab Department of Oncology in [place], [place] [address] [place] [address] Kerrie Vela M.B., B.ChForeign, M.DForeign [address] [place] [phone] 10/23/2024 11:00 AM CDT Office Visit Department of Oncology in [place], [place] [address] [place] [address] Kerrie Vela M.B., B., M.D. [address] [place] [phone] 10/23/2024 11:30 AM CDT Appointment Department of Radiology in [place], [place] [address] [place] [address] Franny Dutta M.D. [address] [place] [phone] 10/24/2024 7:30 AM CDT Infusion Department of Oncology in [place], [place] [address] [place] [address] Kerrie Vela M.B., B., M.DForeign [address] [place] [phone] 10/24/2024 11:00 AM CDT Appointment Department of Radiation Oncology in [place], [place] [address] [place] [phone] Franny Dutta M.D. [address] [place] [phone] 10/25/2024 11:00 AM CDT Office Visit Department of Oncology in [place], [place] [address] [place] [phone] Kerrie Vela M.B., BDuran, MEllen. [address] [place] [phone] 11/06/2024 7:00 AM CDT Lab Department of Oncology in [place], [place] [address] [place] [phone] Kerrie Vela M.B., BDuran, M.DForeign [address] [place] [phone] 11/06/2024 9:00 AM CDT Office Visit Department of Oncology in [address] [phone] Dawood Ruiz P.A.-C. [address] [place] [phone] 11/06/2024 10:00 AM CDT Infusion Department of Oncology in [address] [phone] Kerrie Vela M.B., B.Ch., M.DForeign [address] [place] [phone] 11/20/2024 6:30 AM CDT Lab Department of Laboratory Medicine and Pathology, [facility], in [place], [place] [address] [place] [phone] Kerrie Vela M.B., BDuran, M.D. [address] [place] [phone] 11/20/2024 8:20 AM CDT Office Visit Department of Oncology in [address] [place] [address] Dawood Ruiz P.A.-C. [address] [place] [phone] 11/20/2024 9:00 AM CDT Infusion Department of Oncology in [place], [place] [address] [place] [phone] Kerrie Vela M.B., B.ChForeign, M.DForeign [address] [place] [phone] 12/04/2024 8:30 AM CDT Lab Department of Laboratory Medicine and Pathology, [facility] in [address] [phone] Kerrie Vela M.B., B.ChForeign, M.DForeign [address] [place] [phone] 12/04/2024 10:20 AM CDT Office Visit Department of Oncology in [address] [address] Kerrie Vela M.B., B.ChForeign, M.D. [address] [place] [phone] 12/04/2024 11:00 AM CDT Infusion Department of Oncology in [address] [phone] Kerrie Vela M.B., B.Ch., M.D. [address] [place] [phone] documented as of this encounter Visit Diagnoses Not on filedocumented in this encounter Additional Health Concerns Infection Onset Date Last Indicated Resolved Time COVID19 Pending 09/25/2019 09/25/2019 09/26/2019 1 :51 AM CDT COVID19 Pending 11/08/2019 11/08/2019 11/09/2019 1 :40 AM CDT COVID19 Pending 12/20/2019 12/20/2019 12/21/2019 1 1:51 AM CDT Protective Environment 02/21/2023 02/21/202305/08 5:44 AM TDP DISPLAYS ANALYST Protective Environment 05/11/2023 05/11/202306/13 6:17 AM TDP DISPLAYS ANALYST Protective Environment 06/27/2023 06/27/202310/15 5:30 AM CDT Protective Environment 10/28/2023 10/28/202306/25 5:58 AM TDP DISPLAYS ANALYST Protective Environment 07/05/2024 07/05/202409/02 6:26 AM CDT documented as of this encounter Care Teams Kier Pleater Relationship Specialty Start Date End Date Jenny Vaca M.D. [address] [place] [phone] PCP - General 11/11/16 documented as of this encounter
--- OUTSIDE RECORDS SUMMARY | 2024-09-13 12:44 | XMS_ITS | Encounter Summary ---
Author Organization [facility] Address [address] [place] [address] Care Team Providers Care Edge Banding Off Bearer Name Role Phone Jenny Vaca M.D. Primary Care Provider Encounter Details Date Type Department Care Team (Late st Contact Info) Description 03/30/2007 Historical Ophthalmology RST OPH Kem Ramirez, C.O.A. [address] [place] [address] Social History Tobacco Use Types Packs/Day Years Used Date Smoking Tobacco: Never Assessed Comments Unknown Sex and Gender Information Value Date Recorded Sex Assigned at Not on file Legal Sex Female 8:27 AM PRINCIPAL BIOINFORMATICS SPECIALIST Gender Identity Female 04/06/2017 8:58 AM PRINCIPAL BIOINFORMATICS SPECIALIST Sexual Orientation Straight 04/06/2017 8: 58 AM PRINCIPAL BIOINFORMATICS SPECIALIST documented as of this encounter Progress Notes * Kem Ramirez, C.O.A. - 03/30/2007 11:25 AM CDT Eye General CHIEF COMPLAINT PDR both eyes , CME both eyes , cataract both HISTORY OF PRESENT ILLNESS Patient comes back today for a follow up and an Intravitreal preservative free Kenalog injection inher right eye today. Vision is horrible in both eyes. Not sure if the kenalog injection helped her left eye. Insulin taking diabetic , blood sugar levels are UNSTABLE. she states that they are very hard to regulate. last night down to 70 after eating and this am 126. her vision gets very blurry when they are this unstable. IMPRESSION / REPORT / PLAN injection only, no exam follow up in 6 weeks with OCT. [facility]KE Reports - EYEGEN Id: [id number] Status: Fnl documented in this encounter Plan of Treatment Upcoming Encounters Date Type Department Care Team (Late st Contact Info) Description 09/14/2024 11:00 AM CDT Admin Visit Department of Oncology in [place], [place] [address] [place] [phone] 09/17/2024 8:00 AM CDT Lab Department of Infusion Therapy in [place], [place] [address] [phone] Jenny Vaca M.D. [address] [phone] 09/17/2024 1:30 PM CDT Office Visit Department of Internal Medicine in [place], [place] [address] [phone] Elissa Luo P.A.-C., M.S. [address] [phone] 09/18/2024 8:00 AM CDT Clinical Support Department of Oncology in [place], [place] [address] [place] [phone] Blossom Hernandez M.S.W., L.I.C.S.W. [address] [place] [phone] 09/20/2024 10:00 AM CDT Telemedicine Department of Oncology in [place], [place] [address] [place] [phone] Kerrie Vela M.B., BDuran, M.DForeign [address] [place] [phone] 09/24/2024 8:30 AM CDT Lab Department of Oncology in [place], [place] [address] [place] [address] Kerrie Vela M.B., BDuran, M.DForeign [address] [place] [phone] 09/24/2024 9:40 AM CDT Office Visit Department of Oncology in [place], [place] [address] [place] [phone] Kerrie Vela M.B., BDuran, M.DForeign [address] [place] [phone] 09/24/2024 10:20 AM CDT Education Department of Oncology in [place], [place] [address] [place] [address] Kerrie Vela M.B., BDuran, M.DForeign [address] [place] [phone] 09/24/2024 11:30 AM CDT Appointment [facility], [facility], [facility] [address] [place] [phone] Kerrie Vela M.B., B.ChForeign, M.DForeign [address] [place] [phone] 09/25/2024 8:30 AM CDT Appointment [facility], [facility], [facility] [address] [place] [phone] Kerrie Vela M.B., BDuran, M.DForeign [address] [place] [phone] 09/26/2024 8:30 AM CDT Appointment [facility], [facility], [facility] [address] [place] [phone] Kerrie Vela M.B., BDuran, M.Cecelia [address] [place] [phone] 09/28/2024 11:45 AM CDT Lab Department of Oncology in [place], [place] [address] [place] [phone] Kerrie Vela M.B., BDuran, M.DForeign [address] [place] [phone] 09/28/2024 1:40 PM CDT Office Visit Department of Oncology in [place], [place] [address] [place] [phone] Dawood Ruiz P.A.-C. [address] [place] [phone] 10/01/2024 8:00 AM CDT Appointment [facility], [facility], [facility] [address] [place] [phone] Kerrie Vela M.B., B., M.DForeign [address] [place] [phone] 10/02/2024 8:00 AM CDT Appointment [facility], [facility], [facility] [address] [place] [phone] Kerrie Vela M.B., BDuran, M.Cecelia [address] [place] [phone] 10/03/2024 8:00 AM CDT Appointment [facility], [facility], [facility] Level [address] [place] [address] Kerrie Vela M.B., BDuran, M.Cecelia [address] [place] [phone] 10/10/2024 6:30 AM CDT Lab Department of Oncology in [place], [place] [address] [place] [address] Kerrie Vela M.B., BDuran, M.DForeign [address] [place] [phone] 10/10/2024 8:20 AM CDT Office Visit Department of Oncology in [place], [place] [address] [place] [phone] Brittney Stuart M.D. [address] [place] [phone] 10/10/2024 12:30 PM CDT Infusion Department of Oncology in [place], [place] [address] [place] [phone] Kerrie Vela M.B., B.ChForeign, M.D. [address] [place] [phone] 10/12/2024 11:20 AM CDT Office Visit Department of Oncology in [place], [place] [address] [place] [address] Kerrie Vela M.B., B.ChForeign, M.DForeign [address] [place] [phone] 10/17/2024 1:00 PM CDT Office Visit Department of Ophthalmology in [place], [place] [address] [place] [address] Tomás Mcbride M.D. [address] [place] [address] 10/23/2024 8:45 AM CDT Lab Department of Oncology in [place], [place] [address] [place] [phone] Kerrie Vela M.B., B.ChForeign, M.DForeign [address] [place] [phone] 10/23/2024 11:00 AM CDT Office Visit Department of Oncology in [place], [place] [address] [place] [phone] Kerrie Veal M.B., B.Ch., M.D. [address] [place] [phone] 10/23/2024 11:30 AM CDT Appointment Department of Radiology in [place], [place] [address] [place] [address] Franny Dutta M.D. [address] [place] [phone] 10/24/2024 7:30 AM CDT Infusion Department of Oncology in [place], [place] [address] [place] [phone] Kerrie Vela M.B., B.Ch., M.D. [address] [place] [phone] 10/24/2024 11:00 AM CDT Appointment Department of Radiation Oncology in [place], [place] [address] [place] [address] Franny Dutta M.D. [address] [place] [phone] 10/25/2024 11:00 AM CDT Office Visit Department of Oncology in [place], [place] [address] [place] [phone] Kerrie Vela M.B., B., M.DForeign [address] [place] [phone] 11/06/2024 7:00 AM CDT Lab Department of Oncology in [address] [address] Kerrie Vela M.B., B.ChForeign, M.DForeign [address] [place] [phone] 11/06/2024 9:00 AM CDT Office Visit Department of Oncology in [place], [place] [address] [place] [phone] Dawood Ruiz P.A.-C. [address] [place] [phone] 11/06/2024 10:00 AM CDT Infusion Department of Oncology in [address] [phone] Kerrie Vela M.B., B.Ch., M.D. [address] [place] [phone] 11/20/2024 6:30 AM CDT Lab Department of Laboratory Medicine and Pathology, [facility], in [place], [place] [address] [place] [phone] Kerrie Vela M.B., B.ChForeign, M.DForeign [address] [place] [phone] 11/20/2024 8:20 AM CDT Office Visit Department of Oncology in [place], [place] [address] [place] [address] Dawood Ruiz P.A.-C. [address] [place] [phone] 11/20/2024 9:00 AM CDT Infusion Department of Oncology in [place], [place] [address] [place] [phone] Kerrie Vela M.B., B.ChForeign, M.D. [address] [place] [phone] 12/04/2024 8:30 AM CDT Lab Department of Laboratory Medicine and Pathology, [facility] in [place], [place] [address] [place] [phone] Kerrie Vela M.B., B.Ch., M.D. [address] [place] [phone] 12/04/2024 10:20 AM CDT Office Visit Department of Oncology in [place], [place] [address] [place] [phone] Kerrie Vela M.B., B.Ch., M.D. [address] [place] [phone] 12/04/2024 11:00 AM CDT Infusion Department of Oncology in [place], [place] [address] [place] [phone] Kerrie Vela M.B., B.Ch., M.DForeign [address] [place] [phone] documented as of this encounter Visit Diagnoses Not on filedocumented in this encounter Additional Health Concerns Infection Onset Date Last Indicated Resolved Time COVID19 Pending 09/25/2019 09/25/2019 09/26/2019 1 :51 AM CDT COVID19 Pending 11/08/2019 11/08/2019 11/09/2019 1 :40 AM CDT COVID19 Pending 12/20/2019 12/20/2019 12/21/2019 1 1:51 AM CDT Protective Environment 02/21/2023 02/21/202305/08 5:44 AM PRINCIPAL BIOINFORMATICS SPECIALIST Protective Environment 05/11/2023 05/11/202306/13 6:17 AM PRINCIPAL BIOINFORMATICS SPECIALIST Protective Environment 06/27/2023 06/27/202310/15 5:30 AM CDT Protective Environment 10/28/2023 10/28/202306/25 5:58 AM PRINCIPAL BIOINFORMATICS SPECIALIST Protective Environment 07/05/2024 07/05/202409/02 6:26 AM CDT documented as of this encounter Care Teams Edge Banding Off Bearer Relationship Specialty Start Date End Date Jenny Vaca M.D. [address] [place] [address] PCP - General 11/11/16 documented as of this encounter
--- OUTSIDE RECORDS SUMMARY | 2024-09-13 12:44 | XMS_ITS | Encounter Summary ---
Author Organization [facility] Address [address] [place] [address] Care Team Providers Care Health Benefits Specialist Name Role Phone Jenny Vaca M.D. Primary Care Provider [phone] Encounter Details Date Type Department Care Team (Late st Contact Info) Description 07/25/2008 Historical Ophthalmology RST OPH Alysha Fontanez [address] [place] [address] Social History Tobacco Use Types Packs/Day Years Used Date Smoking Tobacco: Never Assessed Comments Unknown Sex and Gender Information Value Date Recorded Sex Assigned at Not on file Legal Sex Female 8:27 AM TELEGRAPHIC TYPEWRITER REPAIRER Gender Identity Female 04/06/2017 8:58 AM TELEGRAPHIC TYPEWRITER REPAIRER Sexual Orientation Straight 04/06/2017 8: 58 AM TELEGRAPHIC TYPEWRITER REPAIRER documented as of this encounter Progress Notes * Alysha Fontanez, C.O.A. - 07/25/2008 9:34 AM CST Eye Subsequent Visit HISTORY OF PRESENT ILLNESS PF Triesence left eye today CDM Reports - EYESV Id: [id number] Status: Fnl documented in this encounter Plan of Treatment Upcoming Encounters Date Type Department Care Team (Late st Contact Info) Description 09/14/2024 11:00 AM CDT Admin Visit Department of Oncology in [place], [place] [address] [place] [phone] 09/17/2024 8:00 AM CDT Lab Department of Infusion Therapy in [place], [place] [address] [phone] Jenny Vaca M.D. [address] [phone] 09/17/2024 1:30 PM CDT Office Visit Department of Internal Medicine in [place], [place] [address] [phone] Elissa Luo P.A.-C., M.S. [address] [phone] 09/18/2024 8:00 AM CDT Clinical Support Department of Oncology in [place], [place] [address] [place] [phone] Blossom Hernandez, M.S.W., L.I.C.S.W. [address] [place] [phone] 09/20/2024 10:00 AM CDT Telemedicine Department of Oncology in [place], [place] [address] [place] [phone] Kerrie Vela M.B., B.Ch., M.D. [address] [place] [phone] 09/24/2024 8:30 AM CDT Lab Department of Oncology in [place], [place] [address] [place] [phone] Kerrie Vela M.B., B.Ch., M.D. [address] [place] [phone] 09/24/2024 9:40 AM CDT Office Visit Department of Oncology in [place], [place] [address] [place] [phone] Kerrie Vela M.B., BDuran, M.DForeign [address] [place] [phone] 09/24/2024 10:20 AM CDT Education Department of Oncology in [place], [place] [address] [place] [phone] Kerrie Vela M.B., BDuran, M.DForeign [address] [place] [phone] 09/24/2024 11:30 AM CDT Appointment [facility], [facility] [address] [place] [phone] Kerrie Vela M.B., B.ChForeign, M.DForeign [address] [place] [phone] 09/25/2024 8:30 AM CDT Appointment [facility], [facility], [facility] [address] [place] [phone] Kerrie Vela M.B., B.ChForeign, M.DForeign [address] [place] [phone] 09/26/2024 8:30 AM CDT Appointment [facility], [facility], [facility] [address] [place] [phone] Kerrie Vela M.B., B.ChForeign, M.DForeign [address] [place] [phone] 09/28/2024 11:45 AM CDT Lab Department of Oncology in [place], [place] [address] [place] [phone] Kerrie Vela M.B., B.ChForeign, M.DForeign [address] [place] [phone] 09/28/2024 1:40 PM CDT Office Visit Department of Oncology in [place], [place] [address] [place] [phone] Dawood Ruiz P.A.-C. [address] [place] [phone] 10/01/2024 8:00 AM CDT Appointment [facility], [facility], [address] [phone] Kerrie Vela M.B., B.ChForeign, M.DForeign [address] [place] [phone] 10/02/2024 8:00 AM CDT Appointment [facility], [facility], [facility] [address] [place] [phone] Kerrie Vela M.B., B.ChForeign, M.D. [address] [place] [phone] 10/03/2024 8:00 AM CDT Appointment [facility], [facility], [facility] [address] [place] [phone] Kerrie Vela M.B., B.ChForeign, M.D. [address] [place] [phone] 10/10/2024 6:30 AM CDT Lab Department of Oncology in [place], [place] [address] [place] [address] Kerrie Vela M.B., B.ChForeign, M.D. [address] [place] [phone] 10/10/2024 8:20 AM CDT Office Visit Department of Oncology in [place], [place] [address] [place] [address] Brittney Stuart M.D. [address] [place] [phone] 10/10/2024 12:30 PM CDT Infusion Department of Oncology in [place], [place] [address] [place] [address] Kerrie Vela M.B., B.Ch., M.D. [address] [place] [phone] 10/12/2024 11:20 AM CDT Office Visit Department of Oncology in [place], [place] [address] [place] [phone] Kerrie Vela M.B., B.Ch., M.D. [address] [place] [phone] 10/17/2024 1:00 PM CDT Office Visit Department of Ophthalmology in [place], [place] [address] [place] [address] Tomás Mcbride M.D. [address] [place] [address] 10/23/2024 8:45 AM CDT Lab Department of Oncology in [place], [place] [address] [place] [address] Kerrie Vela M.B., Trevor, MPhuc [address] [place] [phone] 10/23/2024 11:00 AM CDT Office Visit Department of Oncology in [place], [place] [address] [place] [phone] Kerrie Vela M.B., Trevor, MPhuc [address] [place] [phone] 10/23/2024 11:30 AM CDT Appointment Department of Radiology in [place], [place] [address] [place] [phone] Franny Dutta M.D. [address] [place] [phone] 10/24/2024 7:30 AM CDT Infusion Department of Oncology in [place], [place] [address] [place] [phone] Kerrie Vela M.B., BDuran, MForeignDForeign [address] [place] [phone] 10/24/2024 11:00 AM CDT Appointment Department of Radiation Oncology in [place], [place] [address] [place] [phone] Franny Dutta M.D. [address] [place] [phone] 10/25/2024 11:00 AM CDT Office Visit Department of Oncology in [place], [place] [address] [place] [phone] Kerrie Vela M.B., BDuran, M.DForeign [address] [place] [address] 11/06/2024 7:00 AM CDT Lab Department of Oncology in [place], [place] [address] [facility] [place] [address] Kerrie Vela M.B., BDuran, M.DForeign [address] [place] [phone] 11/06/2024 9:00 AM CDT Office Visit Department of Oncology in [place], [place] [address] [place] [address] Dawood Ruiz, P.A.-CForeign [address] [place] [phone] 11/06/2024 10:00 AM CDT Infusion Department of Oncology in [place], [place] [address] [facility] [place] [address] Kerrie Vela M.B., B., M.DForeign [address] [place] [phone] 11/20/2024 6:30 AM CDT Lab Department of Laboratory Medicine and Pathology, [facility] in [place], [place] [address] [place] [address] Kerrie Vela M.B., BDuran, M.DForeign [address] [place] [phone] 11/20/2024 8:20 AM CDT Office Visit Department of Oncology in [place], [place] [address] [place] [address] Dawood Ruiz, P.A.-CForeign [address] [place] [phone] 11/20/2024 9:00 AM CDT Infusion Department of Oncology in [place], [place] [address] [place] [phone] Kerrie Vela M.B., B.ChForeign, M.D. [address] [place] [phone] 12/04/2024 8:30 AM CDT Lab Department of Laboratory Medicine and Pathology, [facility] in [place], [place] [address] [place] [phone] Kerrie Vela M.B., B.ChForeign, M.D. [address] [place] [phone] 12/04/2024 10:20 AM CDT Office Visit Department of Oncology in [address] [address] Kerrie Vela M.B., B.Ch., M.D. [address] [place] [phone] 12/04/2024 11:00 AM CDT Infusion Department of Oncology in [address] [address] Kerrie Vela M.B., B.Ch., M.D. [address] [place] [phone] documented as of this encounter Visit Diagnoses Not on filedocumented in this encounter Additional Health Concerns Infection Onset Date Last Indicated Resolved Time COVID19 Pending 09/25/2019 09/25/2019 09/26/2019 1 :51 AM CDT COVID19 Pending 11/08/2019 11/08/2019 11/09/2019 1 :40 AM CDT COVID19 Pending 12/20/2019 12/20/2019 12/21/2019 1 1:51 AM CDT Protective Environment 02/21/2023 02/21/202305/08 5:44 AM TELEGRAPHIC TYPEWRITER REPAIRER Protective Environment 05/11/2023 05/11/202306/13 6:17 AM TELEGRAPHIC TYPEWRITER REPAIRER Protective Environment 06/27/2023 06/27/202310/15 5:30 AM CDT Protective Environment 10/28/2023 10/28/202306/25 5:58 AM TELEGRAPHIC TYPEWRITER REPAIRER Protective Environment 07/05/2024 07/05/202409/02 6:26 AM CDT documented as of this encounter Care Teams Health Benefits Specialist Relationship Specialty Start Date End Date Jenny Vaca M.D. NPAria: [phone] [address] [place] [address] PCP - General 11/11/16 documented as of this encounter
--- OUTSIDE RECORDS SUMMARY | 2024-09-13 12:44 | XMS_ITS | Encounter Summary ---
Author Organization [facility] Address [address] [place] [address] Care Team Providers Care Bench Assembler Electrical Name Role Phone Jenny Vaca M.D. Primary Care Provider [phone] Encounter Details Date Type Department Care Team (Late st Contact Info) Description 05/12/2007 Historical Ophthalmology RST OPH Maria Eugenia Cifuentes M.D. 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 - 05/12/2007 8:19 AM CST Eye General CHIEF COMPLAINT follow up kenalog injection HISTORY OF PRESENT ILLNESS Patient denies vision changes, no eye pain. Lots of black floaters, right eye, no recent changes. Denies flashes of light. IMPRESSION / REPORT / PLAN #1 PDR OU s/p PRP OU #2 CME OU #3 cataract OU, mild OCT results: right eye: no CME left eye: trace CME s/p preservative-free intravitreal triamcinolone LE 03/16/07 and RE 03/30/07 CME resolved then FU in 6-8 wks with OCT both eyes. DIAGNOSIS #1 PDR OU #2 CME OU #3 cataract OU, mild CDM Reports - EYEGEN Id: [id number] Status: Fnl documented in this encounter Plan of Treatment Upcoming Encounters Date Type Department Care Team (Late st Contact Info) Description 09/14/2024 11:00 AM CDT Admin Visit Department of Oncology in [place], [place] 200 [place] [address] 09/17/2024 8:00 AM CDT Lab Department of Infusion Therapy in [place], [place] [address] [phone] Jenny Vaca M.D. [address] [address] 09/17/2024 1:30 PM CDT Office Visit Department of Internal Medicine in [place], [place] [address] [address] Elissa Luo P.A.-Hesham., M.S. [address] [address] 09/18/2024 8:00 AM CDT Clinical Support Department of Oncology in [place], [place] 200 [place] [address] Blossom Hernandez M.S.W., L.I.C.S.W. [address] [place] [phone] 09/20/2024 10:00 AM CDT Telemedicine Department of Oncology in [place], [place] [address] [place] [phone] Kerrie Vela M.B., BDuran, M.DForiegn [address] [place] [phone] 09/24/2024 8:30 AM CDT Lab Department of Oncology in [place], [place] [address] [place] [phone] Kerrie Vela M.B., BDuran, M.DForeign [address] [place] [phone] 09/24/2024 9:40 AM CDT Office Visit Department of Oncology in [place], [place] [address] [place] [phone] Kerrie Vela M.B., BDuran, M.DForeign [address] [place] [phone] 09/24/2024 10:20 AM CDT Education Department of Oncology in [place], [place] [address] [place] [phone] Kerrie Vela M.B., BDuran, M.DForeign [address] [place] [phone] 09/24/2024 11:30 AM CDT Appointment [facility], [facility], [facility] [address] [place] [address] Kerrie Vela M.B., B.ChForeign, M.DForeign [address] [place] [phone] 09/25/2024 8:30 AM CDT Appointment [facility], [facility], [facility] [address] [place] [phone] Kerrie Vela M.B., BDuran, M.DForeign [address] [place] [phone] 09/26/2024 8:30 AM CDT Appointment [facility], [facility], [facility] [address] [place] [phone] Kerrie Vela M.B., Trevor, M.DForeign [address] [place] [phone] 09/28/2024 11:45 AM CDT Lab Department of Oncology in [place], [place] [address] [place] [phone] Kerrie Vela M.B., BDuran, M.DForeign [address] [place] [phone] 09/28/2024 1:40 PM CDT Office Visit Department of Oncology in [place], [place] [address] [place] [phone] Dawood Ruiz P.A.-C. [address] [place] [phone] 10/01/2024 8:00 AM CDT Appointment [facility], [facility], [facility] [address] [place] [address] Kerrie Vela M.B., B.ChForeign, M.DForeign [address] [place] [phone] 10/02/2024 8:00 AM CDT Appointment [facility], [facility], [facility] [address] [place] [phone] Kerrie Vela M.B., BDuran, M.Cecelia [address] [place] [phone] 10/03/2024 8:00 AM CDT Appointment [facility], [facility], [facility], [facility] Level [address] [place] [phone] Kerrie Vela M.B., BDuran, M.Cecelia [address] [place] [phone] 10/10/2024 6:30 AM CDT Lab Department of Oncology in [place], [place] [address] [place] [phone] Kerrie Vela M.B., B., M.DForeign [address] [place] [phone] 10/10/2024 8:20 AM CDT Office Visit Department of Oncology in [place], [place] [address] [place] [phone] Brittney Stuart M.D. [address] [place] [phone] 10/10/2024 12:30 PM CDT Infusion Department of Oncology in [place], [place] [address] [place] [phone] Kerrie Vela M.B., B.ChForeign, M.DForeign [address] [place] [phone] 10/12/2024 11:20 AM CDT Office Visit Department of Oncology in [place], [place] [address] [place] [address] Kerrie Vela M.B., B., Alin [address] [place] [phone] 10/17/2024 1:00 PM CDT Office Visit Department of Ophthalmology in [place], [place] [address] [place] [address] Tomás Mcbride M.D. [address] [place] [address] 10/23/2024 8:45 AM CDT Lab Department of Oncology in [place], [place] [address] [place] [phone] Kerrie Vela M.B., B., M.DForeign [address] [place] [phone] 10/23/2024 11:00 AM CDT Office Visit Department of Oncology in [place], [place] [address] [place] [phone] Kerrie Vela M.B., B.Ch., M.D. [address] [place] [phone] 10/23/2024 11:30 AM CDT Appointment Department of Radiology in [place], [place] [address] [place] [phone] Franny Dutta M.D. [address] [place] [phone] 10/24/2024 7:30 AM CDT Infusion Department of Oncology in [place], [place] [address] [place] [phone] Kerrie Vela M.B., B.Ch., M.D. [address] [place] [phone] 10/24/2024 11:00 AM CDT Appointment Department of Radiation Oncology in [place], [place] [address] [place] [address] Franny Dutta M.D. [address] [place] [phone] 10/25/2024 11:00 AM CDT Office Visit Department of Oncology in [place], [place] [address] [place] [phone] Kerrie Vela M.B., B.ChForeign, M.DForeign [address] [place] [phone] 11/06/2024 7:00 AM CDT Lab Department of Oncology in [address] [address] Kerrie Vela M.B., B.ChForeign, M.DForeign [address] [place] [phone] 11/06/2024 9:00 AM CDT Office Visit Department of Oncology in [place], [place] [address] [place] [phone] Dawood Ruiz P.A.-C. [address] [place] [phone] 11/06/2024 10:00 AM CDT Infusion Department of Oncology in [place], [place] [address] [place] [phone] Kerrie Vela M.B., B.Ch., M.D. [address] [place] [phone] 11/20/2024 6:30 AM CDT Lab Department of Laboratory Medicine and Pathology, [facility], in [place], [place] [address] [place] [phone] Kerrie Vela M.B., BForeignChForeign, M.DForeign [address] [place] [phone] 11/20/2024 8:20 AM CDT Office Visit Department of Oncology in [place], [place] [address] [place] [phone] Dawood Ruiz P.A.-C. [address] [place] [phone] 11/20/2024 9:00 AM CDT Infusion Department of Oncology in [place], [place] [address] [place] [phone] Kerrie Vela M.B., BDuran, M.DForeign [address] [place] [phone] 12/04/2024 8:30 AM CDT Lab Department of Laboratory Medicine and Pathology, [facility] in [place], [place] [address] [place] [phone] Kerrie Vela M.B., BForeignChForeign, M.DForeign [address] [place] [phone] 12/04/2024 10:20 AM CDT Office Visit Department of Oncology in [place], [place] [address] [place] [phone] Kerrie Vela M.B., B.ChForeign, M.D. [address] [place] [phone] 12/04/2024 11:00 AM CDT Infusion Department of Oncology in [place], [place] [address] [place] [phone] Kerrie Vela M.B., B.ChForeign, MForeignD. [address] [place] [address] documented as of this encounter Visit Diagnoses Not on filedocumented in this encounter Additional Health Concerns Infection Onset Date Last Indicated Resolved Time COVID19 Pending 09/25/2019 09/25/2019 09/26/2019 1 :51 AM CDT COVID19 Pending 11/08/2019 11/08/2019 11/09/2019 1 :40 AM CDT COVID19 Pending 12/20/2019 12/20/2019 12/21/2019 1 1:51 AM CDT Protective Environment 02/21/2023 02/21/202305/08 5:44 AM EQUIPMENT OPERATOR/LABORER Protective Environment 05/11/2023 05/11/202306/13 6:17 AM EQUIPMENT OPERATOR/LABORER Protective Environment 06/27/2023 06/27/202310/15 5:30 AM CDT Protective Environment 10/28/2023 10/28/202306/25 5:58 AM EQUIPMENT OPERATOR/LABORER Protective Environment 07/05/2024 07/05/202409/02 6:26 AM CDT documented as of this encounter Care Teams Bench Assembler Electrical Relationship Specialty Start Date End Date Jenny Vaca M.D. [address] [place] [address] PCP - General 11/11/16 documented as of this encounter
--- OUTSIDE RECORDS SUMMARY | 2024-09-13 12:44 | XMS_ITS | Encounter Summary ---
Author Organization [facility] Address [address] [place] [address] Care Team Providers Care District Wildlife Manager Name Role Phone Jenny Vaca M.D. Primary Care Provider [phone]- [phone] Encounter Details Date Type Department Care Team (Late st Contact Info) Description 10/26/2007 Historical Ophthalmology RST OPH Shaquille Mcclellan M.D. 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 - 10/26/2007 8:06 AM CDT Eye Postoperative MULTI-VISIT DOCUMENT This document contains multiple patient visits and is available for review in Document Viewer. CDM Reports - EYEPO Id: [id number] Status: Fnl documented in this encounter Plan of Treatment Upcoming Encounters Date Type Department Care Team (Late st Contact Info) Description 09/14/2024 11:00 AM CDT Admin Visit Department of Oncology in [place], [place] [address] [place] [phone] 09/17/2024 8:00 AM CDT Lab Department of Infusion Therapy in [place], [place] [address] [phone] Jenny Vaca M.D. [address] [address] 09/17/2024 1:30 PM CDT Office Visit Department of Internal Medicine in [place], [place] [address] [address] Elissa Luo P.A.-C., M.S. [address] [address] 09/18/2024 8:00 AM CDT Clinical Support Department of Oncology in [place], [place] [address] [place] [phone] Blossom Hernandez M.S.W., L.I.C.S.W. [address] [place] [address] 09/20/2024 10:00 AM CDT Telemedicine Department of Oncology in [place], [place] [address] [place] [address] Kerrie Vela M.B., B.Ch., M.D. [address] [place] [phone] 09/24/2024 8:30 AM CDT Lab Department of Oncology in [place], [place] [address] [place] [address] Kerrie Vela M.B., BDuran, MPhuc [address] [place] [address] 09/24/2024 9:40 AM CDT Office Visit Department of Oncology in [place], [place] [address] [place] [address] Kerrie Vela M.B., B.ChForeign, M.DForeign [address] [place] [phone] 09/24/2024 10:20 AM CDT Education Department of Oncology in [place], [place] [address] [place] [address] Kerrie Vela M.B., BDuran, M.DForeign [address] [place] [phone] 09/24/2024 11:30 AM CDT Appointment [facility], [facility], [facility] [address] [place] [address] Kerrie Vela M.B., B.ChForeign, M.DForeign [address] [place] [address] 09/25/2024 8:30 AM CDT Appointment [facility], [facility], [facility] 201 [place] [phone] Kerrie Vela M.B., Jam.ChForeign, M.D. [address] [place] [address] 09/26/2024 8:30 AM CDT Appointment [facility], [facility] [address] [place] [phone] Kerrie Vela M.B., BDuran, M.DForeign [address] [place] [address] 09/28/2024 11:45 AM CDT Lab Department of Oncology in [place], [place] [address] [place] [phone] Kerrie Vela M.B., B.ChForeign, M.DForeign [address] [place] [phone] 09/28/2024 1:40 PM CDT Office Visit Department of Oncology in [place], [place] [address] [place] [phone] Dawood Ruiz P.A.-C. [address] [place] [address] 10/01/2024 8:00 AM CDT Appointment [facility], [facility] [address] [place] [phone] Kerrie Vela M.B., B.Ch., M.DForeign [address] [place] [address] 10/02/2024 8:00 AM CDT Appointment [facility], [facility] [address] [place] [phone] Kerrie Vela M.B., B., M.DForeign [address] [place] [phone] 10/03/2024 8:00 AM CDT Appointment [facility], Lobby Level [address] [place] [address] Kerrie Vela M.B., BDuran, M.Cecelia [address] [place] [address] 10/10/2024 6:30 AM CDT Lab Department of Oncology in [place], [place] [address] [place] [phone] Kerrie Vela M.B., BDuran, M.DForeign [address] [place] [address] 10/10/2024 8:20 AM CDT Office Visit Department of Oncology in [address] [address] Brittney [place] M.D. [address] [place] [address] 10/10/2024 12:30 PM CDT Infusion Department of Oncology in [place], [place] [address] [place] [address] Kerrie Vela M.B., B.ChForeign, M.D. [address] [place] [address] 10/12/2024 11:20 AM CDT Office Visit Department of Oncology in [place], [place] [address] [place] [address] Kerrie Vela M.B., B., M.D. [address] [place] [address] 10/17/2024 1:00 PM CDT Office Visit Department of Ophthalmology in [place], [place] [address] [place] [address] Tomás Mcbride M.D. [address] [place] [phone] 10/23/2024 8:45 AM CDT Lab Department of Oncology in [place], [place] [address] [place] [address] Kerrie Vela M.B., B., M.D. [address] [place] [address] 10/23/2024 11:00 AM CDT Office Visit Department of Oncology in [place], [place] [address] [place] [phone] Kerrie Vela M.B., B., M.D. [address] [place] [address] 10/23/2024 11:30 AM CDT Appointment Department of Radiology in [place], [place] [address] [place] [phone] Franny Dutta M.D. [address] [place] [address] 10/24/2024 7:30 AM CDT Infusion Department of Oncology in [place], [place] [address] [place] [address] Kerrie Vela M.B., B.ChForeign, M.D. [address] [place] [address] 10/24/2024 11:00 AM CDT Appointment Department of Radiation Oncology in [place], [place] [address] [place] [phone] Franny Dutta M.D. [address] [place] [phone] 10/25/2024 11:00 AM CDT Office Visit Department of Oncology in [place], [place] [address] [place] [phone] Kerrie Vela M.B., BDuran, M.D. [address] [place] [address] 11/06/2024 7:00 AM CDT Lab Department of Oncology in [place], [place] [address] [place] [phone] Kerrie Vela M.B., BDuran, M.DForeign [address] [place] [address] 11/06/2024 9:00 AM CDT Office Visit Department of Oncology in [address] [address] Dawood Ruiz P.A.-C. [address] [place] [address] 11/06/2024 10:00 AM CDT Infusion Department of Oncology in [address] [address] Kerrie Vela M.B., B.ChForeign, M.DForeign [address] [place] [address] 11/20/2024 6:30 AM CDT Lab Department of Laboratory Medicine and Pathology, [facility], in [address] [address] Kerrie Vela M.B., B., M.D. [address] [place] [address] 11/20/2024 8:20 AM CDT Office Visit Department of Oncology in [place], [place] [address] [place] [phone] Dawood Ruiz P.A.-C. [address] [place] [address] 11/20/2024 9:00 AM CDT Infusion Department of Oncology in [place], [place] [address] [place] [address] Kerrie Vela M.B., B.ChForeign, M.DForeign [address] [place] [address] 12/04/2024 8:30 AM CDT Lab Department of Laboratory Medicine and Pathology, [facility] in [place], [place] [address] [place] [address] Kerrie Vela M.B., B.ChForeign, M.DForeign [address] [place] [address] 12/04/2024 10:20 AM CDT Office Visit Department of Oncology in [place], [place] [address] [place] [address] Kerrie Vela M.B., B.ChForeign, M.D. [address] [place] [address] 12/04/2024 11:00 AM CDT Infusion Department of Oncology in [place], [place] [address] [place] [phone] Kerrie Vela M.B., B.ChForeign, M.D. 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 [address] [place] [address] PCP - General 11/11/16 documented as of this encounter
--- OUTSIDE RECORDS SUMMARY | 2024-09-13 12:44 | XMS_ITS | Encounter Summary ---
Author Organization [facility] Address [address] [place] [address] Care Team Providers Care Professor Of Political Science Name Role Phone Jenny Vaca M.D. Primary Care Provider [phone]- [phone] Encounter Details Date Type Department Care Team (Late st Contact Info) Description 09/05/2007 Historical Ophthalmology RST OPH Shaquille Mcclellan M.D. [address] [place] [address] Social History Tobacco Use Types Packs/Day Years Used Date Smoking Tobacco: Never Assessed Comments Unknown Sex and Gender Information Value Date Recorded Sex Assigned at Not on file Legal Sex Female 8:27 AM HYDRAULIC JACK ADJUSTER Gender Identity Female 04/06/2017 8:58 AM HYDRAULIC JACK ADJUSTER Sexual Orientation Straight 04/06/2017 8: 58 AM HYDRAULIC JACK ADJUSTER documented as of this encounter Progress Notes * Shaquille Mcclellan M.D. - 09/05/2007 9:30 AM CDT Eye General CHIEF COMPLAINT cataract evaluation HISTORY OF PRESENT ILLNESS Increased blurred vision left eye. History of multiple lasers due to diabetes. Denies ocular discomfort. History of floaters right eye more than left IMPRESSION / REPORT / PLAN #1 Cataract, both eyes (left > right) Visually significant left eye. Plan: could consider cataract surgery left eye; see below. The alternatives to cataract surgery were discussed in detail with the patient (or legal inside account representative and others present during the discussion). The risks, goals, advanced directives, alternatives and potential complications of surgery were discussed. Also discussed the necessity of other membersof the surgical team participating in the interventional procedure. Patient verbalizes understanding and wishes to proceed with cataract surgery and probable intraocular lens implantation left eye (OS) at the present time. This is a reasonable course. Will aim for near emmetropia. Will proceed under local anesthesia following preanesthetic review. Get IOL measurements both eyes (OU). #2 Proliferative diabetic retinopathy Probably with macular ischemia left eye, discussed visual outcome of #1 DIAGNOSIS #1 Cataract, both eyes (left > right) #2 Proliferative diabetic retinopathy CDM Reports - EYEGEN Id: [id number] Status: Fnl documented in this encounter Plan of Treatment Upcoming Encounters Date Type Department Care Team (Late st Contact Info) Description 09/14/2024 11:00 AM CDT Admin Visit Department of Oncology in [place], [place] 200 [place] [address] 09/17/2024 8:00 AM CDT Lab Department of Infusion Therapy in [place], [place] [address] [address] Jenny Vaca M.D. [address] [address] 09/17/2024 1:30 PM CDT Office Visit Department of Internal Medicine in [place], [place] [address] [address] Elissa Luo P.A.-C., M.S. [address] [phone] 09/18/2024 8:00 AM CDT Clinical Support Department of Oncology in [place], [place] [address] [place] [phone] Blossom Hernandez M.S.[place]., L.I.C.S.W. [address] [place] [phone] 09/20/2024 10:00 AM CDT Telemedicine Department of Oncology in [place], [place] [address] [place] [phone] Kerrie Vela M.B., B.ChForeign, M.D. [address] [place] [phone] 09/24/2024 8:30 AM CDT Lab Department of Oncology in [place], [place] [address] [place] [phone] Kerrie Vela M.B., B.ChForeign, M.DForeign [address] [place] [phone] 09/24/2024 9:40 AM CDT Office Visit Department of Oncology in [place], [place] [address] [place] [phone] Kerrie Vela M.B., B.ChForeign, M.D. [address] [place] [phone] 09/24/2024 10:20 AM CDT Education Department of Oncology in [place], [place] [address] [place] [phone] Kerrie Vela M.B., B.Ch., M.D. [address] [place] [phone] 09/24/2024 11:30 AM CDT Appointment [facility], [facility], [facility], Lobby Level [address] [place] [phone] Kerrie Vela M.B., B.ChForeign, M.DForeign [address] [place] [phone] 09/25/2024 8:30 AM CDT Appointment [facility], [facility], [facility] [address] [place] [phone] Kerrie Vela M.B., BForeignChForeign, M.D. [address] [place] [phone] 09/26/2024 8:30 AM CDT Appointment [facility], [facility], [facility] [address] [place] [phone] Kerrie Vela M.B., BForeignChForeign, M.DForeign [address] [place] [phone] 09/28/2024 11:45 AM CDT Lab Department of Oncology in [place], [place] [address] [place] [phone] Kerrie Vela M.B., B.ChForeign, M.D. [address] [place] [phone] 09/28/2024 1:40 PM CDT Office Visit Department of Oncology in [place], [place] [address] [place] [phone] Dawood Ruiz P.A.-C. [address] [place] [phone] 10/01/2024 8:00 AM CDT Appointment [facility], [facility], [facility] [address] [place] [phone] Kerrie Vela M.B., BDuran, M.DForeign [address] [place] [phone] 10/02/2024 8:00 AM CDT Appointment [facility], [facility], [facility] [address] [place] [phone] Kerrie Vela M.B., BDuran, MPhuc [address] [place] [phone] 10/03/2024 8:00 AM CDT Appointment [facility], [facility], [facility] [address] [place] [address] Kerrie Vela M.B., Trevor, M.Cecelia [address] [place] [phone] 10/10/2024 6:30 AM CDT Lab Department of Oncology in [place], [place] [address] [place] [phone] Kerrie Vela M.B., B.ChForeign, M.DForeign [address] [place] [phone] 10/10/2024 8:20 AM CDT Office Visit Department of Oncology in [place], [place] [address] [place] [phone] Brittney Stuart M.D. [address] [place] [phone] 10/10/2024 12:30 PM CDT Infusion Department of Oncology in [place], [place] [address] [place] [phone] Kerrie Vela M.B., B.ChForeignAlin [address] [place] [phone] 10/12/2024 11:20 AM CDT Office Visit Department of Oncology in [place], [place] [address] [place] [phone] Kerrie Vela M.B., B.ChForeign, M.D. [address] [place] [phone] 10/17/2024 1:00 PM CDT Office Visit Department of Ophthalmology in [place], [place] [address] [place] [phone] Tomás Mcbride M.D. [address] [place] [phone] 10/23/2024 8:45 AM CDT Lab Department of Oncology in [place], [place] [address] [place] [phone] Kerrie Vela M.B., B.ChForeign, M.D. [address] [place] [phone] 10/23/2024 11:00 AM CDT Office Visit Department of Oncology in [place], [place] [address] [place] [phone] Kerrie Vela M.B., B.Ch., M.D. [address] [place] [phone] 10/23/2024 11:30 AM CDT Appointment Department of Radiology in [place], [place] [address] [place] [phone] Franny Dutta M.D. [address] [place] [phone] 10/24/2024 7:30 AM CDT Infusion Department of Oncology in [place], [place] [address] [place] [phone] Kerrie Vela M.B., B.ChForeign, M.D. [address] [place] [phone] 10/24/2024 11:00 AM CDT Appointment Department of Radiation Oncology in [place], [place] [address] [place] [phone] Franny Dutta M.D. [address] [place] [phone] 10/25/2024 11:00 AM CDT Office Visit Department of Oncology in [place], [place] [address] [place] [phone] Kerrie Vela M.B., B.Ch., M.D. [address] [place] [phone] 11/06/2024 7:00 AM CDT Lab Department of Oncology in [address] [phone] Kerrie Vela M.B., B.Ch., M.D. [address] [place] [phone] 11/06/2024 9:00 AM CDT Office Visit Department of Oncology in [address] [address] Dawood Ruiz P.A.-C. [address] [place] [phone] 11/06/2024 10:00 AM CDT Infusion Department of Oncology in [place], [place] [address] [place] [phone] Kerrie Vela M.B., B.ChForeign, M.DForeign [address] [place] [phone] 11/20/2024 6:30 AM CDT Lab Department of Laboratory Medicine and Pathology, [facility] [place], [place] [address] [place] [address] Kerrie Vela M.B., B.ChForeign, M.D. [address] [place] [phone] 11/20/2024 8:20 AM CDT Office Visit Department of Oncology in [place], [place] [address] [place] [phone] Daowod Ruiz P.A.-C. [address] [place] [phone] 11/20/2024 9:00 AM CDT Infusion Department of Oncology in [place], [place] [address] [place] [address] Kerrie Vela M.B., B.Ch., M.D. [address] [place] [phone] 12/04/2024 8:30 AM CDT Lab Department of Laboratory Medicine and Pathology, [facility], in [place], [place] [address] [place] [address] Kerrie Vela M.B., B.Ch., M.D. [address] [place] [phone] 12/04/2024 10:20 AM CDT Office Visit Department of Oncology in [place], [place] [address] [place] [phone] Kerrie Vela M.B., B.Ch., Alin [address] [place] [address] 12/04/2024 11:00 AM CDT Infusion Department of Oncology in [place], [place] [address] [place] [address] Kerrie Vela M.B., Trevor, Alin [address] [place] [address] documented as of this encounter Visit Diagnoses Not on filedocumented in this encounter Additional Health Concerns Infection Onset Date Last Indicated Resolved Time COVID19 Pending 09/25/2019 09/25/2019 09/26/2019 1:51 AM CDT COVID19 Pending 11/08/2019 11/08/2019 11/09/2019 1 :40 AM CDT COVID19 Pending 12/20/2019 12/20/2019 12/21/2019 1 1:51 AM CDT Protective Environment 02/21/2023 02/21/202305/08 5:44 AM HYDRAULIC JACK ADJUSTER Protective Environment 05/11/2023 05/11/202306/13 6:17 AM HYDRAULIC JACK ADJUSTER Protective Environment 06/27/2023 06/27/202310/15 5:30 AM CDT Protective Environment 10/28/2023 10/28/202306/25 5:58 AM HYDRAULIC JACK ADJUSTER Protective Environment 07/05/2024 07/05/202409/02 6:26 AM CDT documented as of this encounter Care Teams Professor Of Political Science Relationship Specialty Start Date End Date Jenny Vaca M.D. [address] [place] [phone] PCP - General 11/11/16 documented as of this encounter
--- OUTSIDE RECORDS SUMMARY | 2024-09-13 12:44 | XMS_ITS | Encounter Summary ---
Author Organization [facility] Address [address] [place] [address] Care Team Providers Care Civil Manager Name Role Phone Jenny Vaca M.D. Primary Care Provider [phone] Encounter Details Date Type Department Care Team (Late st Contact Info) Description 07/13/2007 Historical Ophthalmology RST OPH Maria Eugenia Cifuentes M.D. [address] [place] [phone] Social History Tobacco Use Types Packs/Day Years Used Date Smoking Tobacco: Never Assessed Comments Unknown Sex and Gender Information Value Date Recorded Sex Assigned at Not on file Legal Sex Female 8:27 AM AMPLIFIER MECHANIC Gender Identity Female 04/06/2017 8:58 AM AMPLIFIER MECHANIC Sexual Orientation Straight 04/06/2017 8: 58 AM AMPLIFIER MECHANIC documented as of this encounter Progress Notes * Maria Eugenia Cifuentes M.D. - 07/13/2007 9:02 AM CST Eye General CHIEF COMPLAINT Follow up left eye HISTORY OF PRESENT ILLNESS Improvement of vision noted since she purchased new glasses in May,. Denies diplopia. She states, I had a blood vessel break in my left eye yesterday. It was a big one and it happens frequently. No pain, flashes or floaters in either eye. She mentions that she has been ill since May having had dehydration, bronchitis and a viral infection. She states, I am sick of being sick. 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 Would continue to observe. #2 CME OU #3 cataract OS> OD, mild may return to Dr Mcbride for consideration of cataract surgery left eye. OCT results: right eye: no CME left eye: CME s/p preservative-free intravitreal triamcinolone LE 03/16/07 and RE 03/30/07 CME recurred left eye. Plan: preservative-free intravitreal triamcinolone LE. Discussed risks, goals, alternatives, advance directives, and the necessity of other members of the healthcare team participating in the procedure with the patient (or legal medical representative and others present during the discussion). The patient u nderstands. All questions answered and consent given. then FU in 6-8 wks with OCT both eyes DIAGNOSIS #1 PDR OU #2 CME OU #3 cataract OS> OD, mild CDM Reports - EYEGEN Id: [id number] Status: Fnl documented in this encounter Plan of Treatment Upcoming Encounters Date Type Department Care Team (Late st Contact Info) Description 09/14/2024 11:00 AM CDT Admin Visit Department of Oncology in [place], [place] [address] [place] [address] 09/17/2024 8:00 AM CDT Lab Department of Infusion Therapy in [place], [place] [address] [phone] Jenny Vaca M.D. [address] [phone] 09/17/2024 1:30 PM CDT Office Visit Department of Internal Medicine in [place], [place] [address] [phone] Elissa Luo P.A.-C., M.S. [address] [phone] 09/18/2024 8:00 AM CDT Clinical Support Department of Oncology in [place], [place] [address] [place] [phone] Blossom Hernandez M.S.[place]., L.I.C.S.W. [address] [place] [phone] 09/20/2024 10:00 AM CDT Telemedicine Department of Oncology in [place], [place] [address] [place] [phone] Kerrie Vela M.B., B.Ch., M.D. [address] [place] [phone] 09/24/2024 8:30 AM CDT Lab Department of Oncology in [place], [place] [address] [place] [phone] Kerrie Vela M.B., B.Ch., M.D. [address] [place] [place] [phone] 09/24/2024 9:40 AM CDT Office Visit Department of Oncology in [address] [phone] Kerrie Vela M.B., B.Ch., M.D. [address] [place] [phone] 09/24/2024 10:20 AM CDT Education Department of Oncology in [address] [address] Kerrie Vela M.B., B.Ch., M.D. [address] [place] [phone] 09/24/2024 11:30 AM CDT Appointment [facility], [facility], [facility] [address] [place] [phone] Kerrie Vela M.B., B.ChForeign, M.DForeign [address] [place] [phone] 09/25/2024 8:30 AM CDT Appointment [facility], [facility], [facility] [address] [place] [phone] Kerrie Vela M.B., B.ChForeign, M.D. [address] [place] [phone] 09/26/2024 8:30 AM CDT Appointment [facility], [facility], [facility] [address] [place] [phone] Kerrie Vela M.B., B.Ch., M.D. [address] [place] [phone] 09/28/2024 11:45 AM CDT Lab Department of Oncology in [place], [place] [address] [place] [phone] Kerrie Vela M.B., B.Ch., M.D. [address] [place] [place] [phone] 09/28/2024 1:40 PM CDT Office Visit Department of Oncology in [place], [place] [address] [place] [phone] Dawood Ruiz P.A.-C. [address] [place] [phone] 10/01/2024 8:00 AM CDT Appointment [facility], [facility], [facility] [address] [place] [phone] Kerrie Vela M.B., B.ChForeign, M.DForeign [address] [place] [phone] 10/02/2024 8:00 AM CDT Appointment [facility], [facility], [facility] [address] [place] [phone] Kerrie Vela M.B., B.ChForeign, M.D. [address] [place] [phone] 10/03/2024 8:00 AM CDT Appointment [facility], [facility], [facility] [address] [place] [phone] Kerrie Vela M.B., B.ChForeign, M.DForeign [address] [place] [phone] 10/10/2024 6:30 AM CDT Lab Department of Oncology in [place], [place] [address] [place] [phone] Kerrie Vela M.B., B.Ch., M.D. [address] [place] [place] [phone] 10/10/2024 8:20 AM CDT Office Visit Department of Oncology in [place], [place] [address] [place] [phone] Brittney Stuart M.D. [address] [place] [phone] 10/10/2024 12:30 PM CDT Infusion Department of Oncology in [place], [place] [address] [place] [phone] Kerrie Vela M.B., Trevor, MEllen. [address] [place] [phone] 10/12/2024 11:20 AM CDT Office Visit Department of Oncology in [place], [place] [address] [place] [phone] Kerrie Vela M.B., BDuran, M.DForeign [address] [place] [phone] 10/17/2024 1:00 PM CDT Office Visit Department of Ophthalmology in [place], [place] [address] [place] [phone] Tomás Mcbride M.D. [address] [place] [phone] 10/23/2024 8:45 AM CDT Lab Department of Oncology in [address] [phone] Kerrie Vela M.B., B., M.DForeign [address] [place] [phone] 10/23/2024 11:00 AM CDT Office Visit Department of Oncology in [address] [phone] Kerrie Vela M.B., Trevor, M.D. [address] [place] [phone] 10/23/2024 11:30 AM CDT Appointment Department of Radiology in [place], [place] [address] [place] [address] Franny Dutta M.D. [address] [place] [phone] 10/24/2024 7:30 AM CDT Infusion Department of Oncology in [place], [place] [address] [place] [phone] Kerrie Vela M.B., B., M.DForeign [address] [place] [phone] 10/24/2024 11:00 AM CDT Appointment Department of Radiation Oncology in [place], [place] [address] [place] [phone] Franny Dutta M.D. [address] [place] [place] [phone] 10/25/2024 11:00 AM CDT Office Visit Department of Oncology in [place], [place] [address] [place] [phone] Kerrie Vela M.B., B.ChForeign, M.D. [address] [place] [place] [phone] 11/06/2024 7:00 AM CDT Lab Department of Oncology in [place], [place] [address] [place] [phone] Kerrie Vela M.B., B.ChForeign, M.D. [address] [place] [place] [phone] 11/06/2024 9:00 AM CDT Office Visit Department of Oncology in [place], [place] [address] [place] [phone] Dawood Ruiz P.A.-C. [address] [place] [phone] 11/06/2024 10:00 AM CDT Infusion Department of Oncology in [place], [place] [address] [place] [address] Krerie Vela M.B., B.ChForeign, M.DForeign [address] [place] [place] [phone] 11/20/2024 6:30 AM CDT Lab Department of Laboratory Medicine and Pathology, [facility] in [place], [place] [address] [place] [phone] Kerrie Vela M.B., B.ChForeign, M.D. [address] [place] [phone] 11/20/2024 8:20 AM CDT Office Visit Department of Oncology in [place], [place] [address] [place] [phone] Dawood Ruiz P.A.-C. [address] [place] [phone] 11/20/2024 9:00 AM CDT Infusion Department of Oncology in [place], [place] [address] [place] [phone] Kerrie Vela M.B., B.Ch., M.D. [address] [place] [place] [phone] 12/04/2024 8:30 AM CDT Lab Department of Laboratory Medicine and Pathology, [facility], in [place], [place] [address] [place] [phone] Kerrie Veal M.B., B.Ch., M.D. [address] [place] [phone] 12/04/2024 10:20 AM CDT Office Visit Department of Oncology in [place], [place] [address] [place] [address] Kerrie Vela M.B., Trevor, MPhuc [address] [place] [phone] 12/04/2024 11:00 AM CDT Infusion Department of Oncology in [place], [place] [address] [place] [address] Kerrie Vela M.B., Trevor, MPhuc [address] [place] [phone] documented as of this encounter Visit Diagnoses Not on filedocumented in this encounter Additional Health Concerns Infection Onset Date Last Indicated Resolved Time COVID19 Pending 09/25/2019 09/25/2019 09/26/2019 1 :51 AM CDT COVID19 Pending 11/08/2019 11/08/2019 11/09/2019 1 :40 AM CDT COVID19 Pending 12/20/2019 12/20/2019 12/21/2019 1 1:51 AM CDT Protective Environment 02/21/2023 02/21/202305/08 5:44 AM AMPLIFIER MECHANIC Protective Environment 05/11/2023 05/11/202306/13 6:17 AM AMPLIFIER MECHANIC Protective Environment 06/27/2023 06/27/202310/15 5:30 AM CDT Protective Environment 10/28/2023 10/28/202306/25 5:58 AM AMPLIFIER MECHANIC Protective Environment 07/05/2024 07/05/202409/02 6:26 AM CDT documented as of this encounter Care Teams Civil Manager Relationship Specialty Start Date End Date Jenny Vaca M.D. [address] [phone] PCP - General 11/11/16 documented as of this encounter
--- OUTSIDE RECORDS SUMMARY | 2024-09-13 12:44 | XMS_ITS | Encounter Summary ---
Author Organization [facility] Address [address] [place] [address] Care Team Providers Care Bottle Hop Name Role Phone Jenny Vaca M.D. Primary Care Provider Encounter Details Date Type Department Care Team (Late st Contact Info) Description 01/26/2007 Historical Ophthalmology RST OPH Nestor Quinones M.D. Social History Tobacco Use Types Packs/Day Years Used Date Smoking Tobacco: Never Assessed Comments Unknown Sex and Gender Information Value Date Recorded Sex Assigned at Not on file Legal Sex Female 8:27 AM SPONGE MAKER Gender Identity Female 04/06/2017 8:58 AM SPONGE MAKER Sexual Orientation Straight 04/06/2017 8: 58 AM SPONGE MAKER documented as of this encounter Progress Notes * Nestor Quinones M.D. - 01/26/2007 7:18 AM CDT Eye General CHIEF COMPLAINT both eyes exam HISTORY OF PRESENT ILLNESS Patient states that she saw Dr. Mcbride last for decreased vision in the left eye and he would like us to take a look at both eyes today. Patient denies ocular pain. Diabetic for the past 5 years; insulin dependant past year; recent change in insulin has better controlled sugars (~ one month); oon rx for hi BP and it has been weell controlled acc to patient;Has had about 1500 laser treatments on each eye for blood in the back of her eye. Left eye cortisone shot in July or August, did'nt help vision. 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 Discussed; needs Fundus photos for baseline; OCT and review; needs aggressive laser pc OD and more macular Rx OS in grid fashion and after that I would consider Avastin injection OS to determine response; OCT reviewed with patient; shows thickened retina and cystic changes ou; the ERM on left was not demonstrated in the frames I swa; letter written to Dr Mcbride and copy to aruna after our discussion DIAGNOSIS #1 Prolifersative diabetic retinopathy OD #2 non-proliferative diabetic retinopathy OS #3 Macular edema OD #4 macular edema OS and epiretinal memvbrane CDM Reports - EYEGEN Id: [id number] Status: Fnl documented in this encounter Plan of Treatment Upcoming Encounters Date Type Department Care Team (Late st Contact Info) Description 09/14/2024 11:00 AM CDT Admin Visit Department of Oncology in [place], [place] [address] [place] [address] 09/17/2024 8:00 AM CDT Lab Department of Infusion Therapy in [place], [place] [address] [phone] Jenny Vaca M.D. [address] [phone] 09/17/2024 1:30 PM CDT Office Visit Department of Internal Medicine in [place], [place] [address] [phone] Elissa Luo P.A.-C., M.S. [address] [phone] 09/18/2024 8:00 AM CDT Clinical Support Department of Oncology in [place], [place] [address] [place] [phone] Blossom Hernandez M.S.W., L.I.C.S.W. [address] [place] [phone] 09/20/2024 10:00 AM CDT Telemedicine Department of Oncology in [place], [place] [address] [place] [phone] Kerrie Vela M.B., B.Ch., M.D. [address] [place] [phone] 09/24/2024 8:30 AM CDT Lab Department of Oncology in [place], [place] [address] [place] [phone] Kerrie Vela M.B., B.Ch., M.D. [address] [place] [phone] 09/24/2024 9:40 AM CDT Office Visit Department of Oncology in [place], [place] [address] [place] [phone] Kerrie Vela M.B., B.Ch., M.D. [address] [place] [phone] 09/24/2024 10:20 AM CDT Education Department of Oncology in [place], [place] [address] [place] [phone] Kerrie Vela M.B., B.Ch., M.D. [address] [place] [phone] 09/24/2024 11:30 AM CDT Appointment [facility], [facility], [facility] [address] [place] [phone] Kerrie Vela M.B., BDuran, M.DForeign [address] [place] [phone] 09/25/2024 8:30 AM CDT Appointment [facility], [facility] [address] [place] [phone] Kerrie Vela M.B., BDuran, M.DForeign [address] [place] [phone] 09/26/2024 8:30 AM CDT Appointment [address] [phone] Kerrie Vela M.B., BDuran, M.DForeign [address] [place] [phone] 09/28/2024 11:45 AM CDT Lab Department of Oncology in [place], [place] [address] [place] [phone] Kerrie Vela M.B., B.ChForeign, M.DForeign [address] [place] [phone] 09/28/2024 1:40 PM CDT Office Visit Department of Oncology in [place], [place] [address] [place] [phone] Dawood Ruiz P.A.-C. [address] [place] [phone] 10/01/2024 8:00 AM CDT Appointment [facility], [facility] [address] [place] [phone] Kerrie Vela M.B., BDuran, M.DForeign [address] [place] [phone] 10/02/2024 8:00 AM CDT Appointment [facility], [facility], [facility] [address] [place] [address] Kerrie Vela M.B., Trevor, M.DForeign [address] [place] [phone] 10/03/2024 8:[address] [facility], [facility], [facility], [address] [phone] Kerrie Vela M.B., BDuran, M.DForeign [address] [place] [phone] 10/10/2024 6:30 AM CDT Lab Department of Oncology in [place], [place] [address] [place] [phone] Kerrie Vela M.B., B., M.DForeign [address] [place] [phone] 10/10/2024 8:20 AM CDT Office Visit Department of Oncology in [place], [place] [address] [place] [phone] Brittney Stuart M.D. [address] [place] [phone] 10/10/2024 12:30 PM CDT Infusion Department of Oncology in [place], [place] [address] [place] [phone] Kerrie Vela M.B., BDuran, M.DForeign [address] [place] [phone] 10/12/2024 11:20 AM CDT Office Visit Department of Oncology in [place], [place] [address] [place] [phone] Kerrie Vela M.B., BDuran, M.DForeign [address] [place] [phone] 10/17/2024 1:00 PM CDT Office Visit Department of Ophthalmology in [place], [place] [address] [place] [phone] Tomás Mcbride M.D. [address] [place] [phone] 10/23/2024 8:45 AM CDT Lab Department of Oncology in [place], [place] [address] [place] [phone] Kerrie Vela M.B., BDuran, M.DForeign [address] [place] [phone] 10/23/2024 11:00 AM CDT Office Visit Department of Oncology in [place], [place] [address] [place] [phone] Kerrie Vela M.B., B.ChForeign, M.DForeign [address] [place] [phone] 10/23/2024 11:30 AM CDT Appointment Department of Radiology in [place], [place] [address] [place] [address] Franny Dutta M.D. [address] [place] [phone] 10/24/2024 7:30 AM CDT Infusion Department of Oncology in [place], [place] [address] [place] [phone] Kerrie Vela M.B., B., M.DForeign [address] [place] [phone] 10/24/2024 11:00 AM CDT Appointment Department of Radiation Oncology in [place], [place] [address] [place] [address] Franny Dutta M.D. [address] [place] [phone] 10/25/2024 11:00 AM CDT Office Visit Department of Oncology in [place], [place] [address] [place] [phone] Kerrie Vela M.B., B.Ch., M.D. [address] [place] [phone] 11/06/2024 7:00 AM CDT Lab Department of Oncology in [place], [place] [address] [place] [phone] Kerrie Vela M.B., B.Ch., M.DForeign [address] [place] [phone] 11/06/2024 9:00 AM CDT Office Visit Department of Oncology in [place], [place] [address] [place] [phone] Dawood Ruiz P.A.-C. [address] [place] [phone] 11/06/2024 10:00 AM CDT Infusion Department of Oncology in [place], [place] [address] [place] [address] Kerrie Vela M.B., BuDran, M.Cecelia [address] [place] [phone] 11/20/2024 6:30 AM CDT Lab Department of Laboratory Medicine and Pathology, [facility] in [place], [place] [address] [place] [phone] Kerrie Vela M.B., BDuran, M.DForeign [address] [place] [phone] 11/20/2024 8:20 AM CDT Office Visit Department of Oncology in [place], [place] [address] [place] [phone] Dawood Ruiz P.A.-C. [address] [place] [phone] 11/20/2024 9:00 AM CDT Infusion Department of Oncology in [place], [place] [address] [place] [phone] Kerrie Vela M.B., B.ChForeign, MForeignDForeign [address] [place] [phone] 12/04/2024 8:30 AM CDT Lab Department of Laboratory Medicine and Pathology, [facility], in [place], [place] [address] [place] [address] Kerrie Vela M.B., B.ChForeign, M.D. [address] [place] [phone] 12/04/2024 10:20 AM CDT Office Visit Department of Oncology in [place], [place] [address] [place] [phone] Kerrie Vela M.B., BDuran, MPhuc [address] [place] [address] 12/04/2024 11:00 AM CDT Infusion Department of Oncology in [place], [place] [address] [place] [address] Kerrie Vela M.B., BDuran, MPhuc [address] [place] [address] documented as of this encounter Visit Diagnoses Not on filedocumented in this encounter Additional Health Concerns Infection Onset Date Last Indicated Resolved Time COVID19 Pending 09/25/2019 09/25/2019 09/26/2019 1 :51 AM CDT COVID19 Pending 11/08/2019 11/08/2019 11/09/2019 1 :40 AM CDT COVID19 Pending 12/20/2019 12/20/2019 12/21/2019 1 1:51 AM CDT Protective Environment 02/21/2023 02/21/202305/08 5:44 AM SPONGE MAKER Protective Environment 05/11/2023 05/11/202306/13 6:17 AM SPONGE MAKER Protective Environment 06/27/2023 06/27/202310/15 5:30 AM CDT Protective Environment 10/28/2023 10/28/202306/25 5:58 AM SPONGE MAKER Protective Environment 07/05/2024 07/05/202409/02 6:26 AM CDT documented as of this encounter Care Teams Bottle Hop Relationship Specialty Start Date End Date Jenny Vaca M.D. [address] [place] [phone] PCP - General 11/11/16 documented as of this encounter
[2024-09-13 13:03] LABS: PCR FLU A Negative PCR FLU A (Negative); PCR FLU B Negative PCR FLU B (Negative); PCR RSV Negative PCR RSV (Negative); SARS PCR* Negative SARS-CoV-2 (Negative)
[2024-09-13] MEDS: HEPARIN 500 UNIT/5 ML SYRINGE IVF (15:13)
== END 2024-09-13 15:20 | disposition home or self-care (01) ==
PROVIDERS: Emergency Provider Student in an Organized Health Care Education/Training Program; PCP Internal Medicine
DX: R55 Syncope and collapse (principal); E11.65 Type 2 diabetes mellitus with hyperglycemia
CPT/HCPCS: 36415; 70450; 71260; 72125; 72131; 73562; 74177; 80053; 81001; 82565; 82962; 83735; 83880; 84484; 85025; 87631; 93005; 99284; 99291; G0390; J1642; Q9967

== ENCOUNTER 2024-09-18 11:05 | Emergency (ER) | payer MEDICARE, OTHER, SELFPAY ==
[2024-09-18] VITALS (42 sets, daily range): BP systolic 88–195; BP diastolic 55–97; PULSE 86–103; RESP 11–51; TEMP 36.1–37.2; O2SAT 92–99; BMI 20.2
--- OUTSIDE RECORDS SUMMARY | 2024-09-18 11:09 | XMS_ITS | Clinical Summary ---
Author Organization [facility] Address [address] [place] [address] Care Team Providers Care Torch Heater Name Role Phone Jenny Vaca MD Primary [...] afterwards 600 mL 5 4 2:47 PM BOX INSPECTOR 03/04/20 Active Active Problems Problem Noted Date Diagnosed Date Primary open angle glaucoma, right eye 4 Posterior capsule opacification 02/08/2012 Cataract 08/24/2011 Overview (08/24/2011): Right Eye Type II or unspecified type diabetes mellitus without mention of complication, not stated as uncontrolled 01/14/2004 Encounters Date Type Department Care Team Description 09/18/2024 9:33 AM CDT Hospital Encounter [address] [address] Encounter for blood transfusion, without reported diagnosis 09/18/2024 Orders Only [address] [address] [facility] 09/17/2024 12:59 PM CDT - 09/17/2024 4:31 PM CDT Emergency [address] [address] Shikha Palm MD Weakness (Primary Dx); Repeated falls; Anemia, unspecified type; Pleural effusion; Constipation, unspecified constipation type Discharge Disposition: Home Self Care 09/17/2024 Travel from Last 3 Months Immunizations Immunization Administration Dates Next Due Influenza, [...] or yelled at (see row info)? No 09/17/2024 Interpersonal Safety Abuse 12 - 18 Not on file 09/17/2024 Interpersonal Safety Ambulatory Vulnerability No t on file 09/17/2024 Comments No Sex and Gender Information Value Date Recorded Sex Assigned at Not on file Legal Sex Female 5:23 AM BOX INSPECTOR Gender Identity Not on file Sexual Orientation Not on file Obstetrics History Last Filed Vital Signs Vital Sign Reading Time Taken Comments Blood Pressure 181/87 09/17/2024 3:39 PM CDT Pulse 87 09/17/2024 4:09 PM CDT Temperature 36.5 C (97.7 F) 09/17/2024 1:09 PM CDT Respiratory Rate 18 09/17/2024 1:09 PM CDT Oxygen Saturation 96% 09/17/2024 4:09 PM CDT Inhaled Oxygen Concentration - - Weight 59.4 kg (131 lb) 09/17/2024 1:09 PM CDT Height 167.6 cm (5' 6) 09/17/2024 1:09 PM CDT Body Mass Index 21.14 09/17/2024 1:09 PM CDT Plan of Treatment Health Maintenance [...] 13, 02/15/2011 Medical Devices Implanted Type Area Circular Stuffer Device Identifier Shelf Expiration Date Model / Serial / Lot Lens Iol Zcb00 19.0 - [id number] Implanted:Qty: 1 on 08/25/2011 at [facility] Right: Eye 12/28/2013 ZCB00# / [id number] / Port 8fr Powerport Clearvue Slim Intermediate Silcn - [id number] Implanted:Qty: 1 on 03/04/2023 by Kaylynn Espinoza MD at [facility] [employer] 10/27/2024 [id number] / / [id number] Procedures Procedure Name Priority Date/Time Associated Diagnosis Comments TROPONIN T (HS) ONE TIME Timed 09/17/2024 3:42 PM CDT URINALYSIS MICROSCOPIC STAT 3:27 PM CDT UA W/ SEDIMENT EXAM REFLEXED PER CRITERIA STAT 09/17/2024 3:[address] ABDOMEN PELVIS WO STAT 09/17/2024 2:[address] LUMBAR SPINE 2D RECONSTRUCTION STAT 09/17/2024 2:[address] SPINE CERVICAL WO STAT 09/17/2024 2:[address] HEAD BRAIN WO STAT 09/17/2024 2:39 PM CDT EKG 12 LEAD STAT 09/17/2024 1:47 PM CDT CBC WITH AUTO DIFFERENTIAL STAT 09/17/2024 1:42 PM CDT TSH WITH REFLEX STAT 09/17/2024 1:42 PM CDT PHOSPHORUS STAT 09/17/2024 1:42 PM CDT MAGNESIUM STAT 09/17/2024 1:42 PM CDT TROPONIN T (HS) ACUTE W/2HR REFLEX STAT 09/17/2024 1:42 PM CDT BASIC METABOLIC PANEL STAT 09/17/2024 1:42 PM CDT CBC WITH AUTO DIFFERENTIAL STAT 09/17/2024 1:42 PM CDT from Last 3 Months Results * (ABNORMAL) TROPONIN T (HS) ONE TIME (09/17/2024 3:42 PM CDT) TROPONIN T HS 41(H) 6-10 ng/L ng/L 09/17/2024 4:07 PM CDT [facility] Blood BLOOD SPECIMEN / Unknown Venipuncture / Unknown 09/17/2024 3:42 PM CDT 09/17/2024 3:47 PM CDT us Shikha Palm MD CHEMISTRY Final Result [facility] [address] [address] * (ABNORMAL) URINALYSIS MICROSCOPIC (09/17/2024 3:27 PM CDT) RBC 0-2 0-2, None Seen /HPF 09/17/2024 3:36 PM CDT [facility] WBC 3-5 0-2, 3-5, None Seen /HPF 09/17/2024 3:36 PM CDT [facility] BACTERIA Few None Seen, Rare, Few Bacteria/H PF 09/17/2024 3:36 PM CDT [facility] EPITHELIAL CELLS Moderate(A ) None Seen, Few Epi/HPF 09/17/2024 3:36 PM [facility] Urine URINE SPECIMEN / Unknown Non-Blood / Unknown 09/17/2024 3:27 PM CDT 09/17/2024 3:30 PM CDT us Shikha Palm MD URINE Final Result [facility] [address] [address] * (ABNORMAL) UA W/ SEDIMENT EXAM REFLEXED PER CRITERIA (09/17/2024 3:27 PM CDT) COLOR Yellow Yellow Color 09/17/2024 3:35 PM [facility] CLARITY Clear Clear Clarity 09/17/2024 3:35 PM [facility] SPECIFIC GRAVITY,URINE 1.010 1.010, 1.015, 1.020, 1.025 09/17/2024 3:35 PM [facility] PH,URINE 6.0 6.0, 7.0, 8.0, 5.5, 6.5, 7.5, 8.5 09/17/2024 3:35 PM [facility] UROBILINOGEN, QUALITATIVE Normal Normal EU/dl 09/17/2024 3:35 PM [facility] PROTEIN, URINE Negative Negative mg/dL 09/17/2024 3:35 PM [facility] GLUCOSE, URINE >=1000(A) Negative mg/dL 09/17/2024 3:35 PM [facility] KETONES,URINE Negative Negative mg/dL 09/17/2024 3:35 PM [facility] BILIRUBIN,URI NE Negative Negative 09/17/2024 3:35 PM [facility] OCCULT BLOOD,URINE Negative Negative 09/17/2024 3:35 PM [facility] NITRITE Negative Negative 09/17/2024 3:35 PM [facility] LEUKOCYTE ESTERASE Negative Negative 09/17/2024 3:35 PM [facility] Urine URINE SPECIMEN / Unknown Non-Blood / Unknown 09/17/2024 3:27 PM CDT 09/17/2024 3:30 PM CDT Result Herlinda Palm MD URINE Final Result [facility] [address] [place] [phone] * CT ABDOMEN PELVIS WO (09/17/2024 2:40 PM CDT) Anatomical Region Laterality Modality Abdomen, Pelvis, AORTA, LIVER, SPLEEN Computed Tomography us Shikha Palm MD CT Final Result * CT 2D RECONSTRUCTION LUMBAR SPINE (09/17/2024 2:39 PM CDT) Anatomical Region Laterality Modality PATELLA, Spine Computed Tomogra phy us Shikha Palm MD CT Final Result * CT SPINE CERVICAL WO (09/17/2024 2:39 PM CDT) Anatomical Region Laterality Modality CERVICAL SPINE, NECK, Spine Comp uted Tomography Result Herlinda Palm MD CT Final Result * CT HEAD BRAIN WO (09/17/2024 2:39 PM CDT) Anatomical Region Laterality Modality HEAD, BRAIN Computed Tomogra phy us Shikha Palm MD CT Final Result * (ABNORMAL) TROPONIN T (HS) ACUTE W/2HR REFLEX (09/17/2024 1:42 PM CDT) TROPONIN T HS 41(H) 6-10 ng/L ng/L 09/17/2024 2:23 PM CDT [facility] Blood BLOOD SPECIMEN / Unknown Line/Port / Unknown 09/17/2024 1:42 PM CDT 09/17/2024 1:52 PM CDT [facility] 09/17/2024 2:23 PM CDT hs-cTnT (Elecsys Troponin T Gen 5) concentration (s) above the sex-specific 99th percentile (16 ng/L or greater for males or 11 ng/L or greater for females) are indicative of myocardial injury. If initial hs-cTnT <=100 ng/L at presentation, a 0h/2h ABSOLUTE (ng/L) delta change (rising or falling) of >=10 ng/L suggests a significant change, whereas a 0h/2h delta change <=3 ng/L suggests no significant change. If initial hs-cTnT >100 ng/L at presentation, a 0h/2h/ RELATIVE (percent, %) delta change of 20% is suggested to distinguish patients with acute vs. chronic myocardial injury. There are multiple etiologies that can cause hs-cTnT increases above the 99th percentile (myocardial injury) other than acute myocardial infarction. Clinical context and careful clinical evaluation are critical for diagnosis and risk-stratification. The diagnosis of acute myocardial infarction requires a rising and/or falling pattern in hs-cTnT concentrations with at least one value above the sex-specific 99th percentile PLUS at least one of the following clinical criteria: ischemic symptoms, new or presumed new significant ST-T wave changes or new LBBB, development of pathological Q waves, imaging evidence of new loss of viable myocardium or new regional wall motion abnormality, or identification of intracoronary atherothrombosis or an acute angiographic culprit on coronary angiography. In appropriate low-risk patients with a non-ischemic electrocardiogram without active chest pain with a symptom onset >3-hours without recurrence, a single initial hs-cTnT<6 ng/L identifies patient with a very low risk in emergency department patient population. Shikha Palm MD CHEMISTRY Final Result [facility] [address] [address] * (ABNORMAL) CBC WITH AUTO DIFFERENTIAL (09/17/2024 1:42 PM CDT) [facility] WHITE BLOOD COUNT 8.5 4.5 - 11.0 thou/cu mm 09/17/2024 1:57 PM [facility] RED BLOOD COUNT 2.61(L) 4.00 - 5.20 mil/cu mm 09/17/2024 1:57 PM [facility] HEMOGLOBIN 7.8(L) 12.0 - 16.0 g/dL 09/17/2024 1:57 PM [facility] HEMATOCRIT 24.3(L) 33.0 - 51.0 % 09/17/2024 1:57 PM [facility] MCV 93 80 - 100 fL 09/17/2024 1:57 PM [facility] MCH 29.9 26.0 - 34.0 pg 09/17/2024 1:57 PM [facility] MCHC 32.1 32.0 - 36.0 g/dL 09/17/2024 1:57 PM [facility] RDW 15.4 11.5 - 15.5 % 09/17/2024 1:57 PM [facility] PLATELET COUNT 317 140 - 440 thou/cu mm 09/17/2024 1:57 PM [facility] MPV 9.1 6.5 - 11.0 fL 09/17/2024 1:57 PM [facility] % NEUT 72.2 % 09/17/2024 1:57 PM [facility] % LYMPH 14.7 % 09/17/2024 1:57 PM [facility] % MONO 12.3 % 09/17/2024 1:57 PM [facility] % EOS 0.6 % 09/17/2024 1:57 PM [facility] % BASO 0.2 % 09/17/2024 1:57 PM [facility] ABSOLUTE NEUTROPHILS 6.1 1.7 - 7.0 thou/cu mm 09/17/2024 1:57 PM [facility] ABSOLUTE LYMPHOCYTES 1.3 0.9 - 2.9 thou/cu mm 09/17/2024 1:57 PM [facility] ABSOLUTE MONOCYTES 1.0(H) <0.9 thou/cu mm 09/17/2024 1:57 PM CDT [facility] ABSOLUTE EOSINOPHILS 0.1 <0.5 thou/cu mm 09/17/2024 1:57 PM CDT [facility] ABSOLUTE BASOPHILS 0.0 <0.3 thou/cu mm 09/17/2024 1:57 PM CDT [facility] Blood BLOOD SPECIMEN / Unknown Line/Port / Unknown 09/17/2024 1:42 PM CDT 09/17/2024 1:52 PM CDT us Shikha Palm MD HEMATOLOGY Final Result Performing Organization Address [facility] de Phone Number [address] [address] * TSH WITH REFLEX (09/17/2024 1:42 PM CDT) TSH 2.31 0.27 - 4.20 uIU/mL 09/17/2024 2:23 PM CDT [facility] Blood BLOOD SPECIMEN / Unknown Line/Port / Unknown 09/17/2024 1:42 PM CDT 09/17/2024 1:52 PM CDT Narrative [facility] - 09/17/2024 2:23 PM CDT In Adults, TSH values between 5.00 and 10.00 uIU/ml do not necessarily indicate the presence of Hypothyroidism. Correlation with clinical findings such as presence of goiter and/or Thyroperoxidase (TPO) Antibody may be helpful. For more information please refer to SONAL 2004; 291: 228-238. us Shikha Palm MD CHEMISTRY Final Result Performing Organization Address [facility] Co de Phone Number [address] [address] * PHOSPHORUS (09/17/2024 1:42 PM CDT) PHOSPHORUS 3.6 2.5 - 4.5 mg/dL 09/17/2024 2:23 PM [facility] Blood BLOOD SPECIMEN / Unknown Line/Port / Unknown 09/17/2024 1:42 PM CDT 09/17/2024 1:52 PM CDT us Shikha Palm MD CHEMISTRY Final Result Performing Organization Address [facility]/ZIP Co de Phone Number [address] [address] * MAGNESIUM (09/17/2024 1:42 PM CDT) MAGNESIUM 1.8 1.6 - 2.4 mg/dL 09/17/2024 2:23 PM [facility] Blood BLOOD SPECIMEN / Unknown Line/Port / Unknown 09/17/2024 1:42 PM CDT 09/17/2024 1:52 PM CDT us Shikha Palm MD CHEMISTRY Final Result Performing Organization Address [facility] Co de Phone Number [address] [address] * (ABNORMAL) BASIC METABOLIC PANEL (09/17/2024 1:42 PM CDT) SODIUM 135(L) 136 - 145 mmol/L 09/17/2024 2:23 PM [facility] POTASSIUM 4.2 3.5 - 5.1 mmol/L 09/17/2024 2:23 PM [facility] CHLORIDE 102 98 - 107 mmol/L 09/17/2024 2:23 PM [facility] CO2,TOTAL 24 22 - 29 mmol/L 09/17/2024 2:23 PM [facility] ANION GAP 9 5 - 18 09/17/2024 2:23 PM [facility] GLUCOSE 190(H) 70 - 99 mg/dL 09/17/2024 2:23 PM [facility] CALCIUM 8.9 8.8 - 10.4 mg/dL 09/17/2024 2:23 PM [facility] Comment: Reference ranges for this test were updated on 04/03/2024 to reflect our healthy population more accurately. Reference range changes are not retroactively applied to results, but previous results using the same methodology can be interpreted in the context of the new reference range. BUN 26(H) 8 - 23 mg/dL 09/17/2024 2:23 PM T [facility] CREATININE 1.53(H) 0.50 - 0.90 mg/dL 09/17/2024 2:23 PM T [facility] BUN/CREAT RATIO 17 10 - 20 2:23 PM T [facility] eGFR 35(L) >90 mL/min/1. 73m2 09/17/2024 2:23 PM T [facility] Comment:As of 2021, eG FR is calculated by the CKD-EPI creatinine equation without race adjustment. eGFR can be influenced by muscle mass, exercise, and diet. The reported eGFR is an estimation only and is only applicable if the renal function is stable. Blood BLOOD SPECIMEN / Unknown Line/Port / Unknown 09/17/2024 1:42 PM CDT 09/17/2024 1:52 PM CDT Shikha Palm MD CHEMISTRY Final Result [facility] [address] [address] from Last 3 Months Insurance MEDICARE PART B HB ONLY MEDICARE PART A HB ONLY [employer] PB ONLY [employer] HB Advance Directives * Full Code (Latest Code [...] 4:47 PM 10/03/2013 2:10 AM Care Teams Torch Heater Relationship Specialty Start Date End Date Jenny Vaca MD [address], [place] [address] PCP - General 04/29/09
--- OUTSIDE RECORDS SUMMARY | 2024-09-18 11:09 | XMS_ITS | Data Portability ---
Author Organization [place] [facility], [employer] Address [address] [facility] [place] [address] Assessment Encounter Date Assessment Date Assessment LastModified [...] Time History of thromboem bolism of vein 364664256 Active 2013 History of DVT (deep vein thrombosis ); Original Code: V12.51 Matt ginal Codesystem : ICD-9-CM C lassificat ion: Medical Co nfirmation Status: Confirmed Not Available [facility] 3 09:04:46 Essential hypertens ion 45311566 Active 2013 HTN (Hypertens ion); Original Code: 401.9 Orig inal Codesystem : ICD-9-CM C lassificat ion: Medical Co nfirmation Status: Confirmed Not Available [facility] 3 09:04:46 Glaucoma 92327372 Active 2012 Glaucoma; Original Code: 365.9 Orig inal Codesystem : ICD-9-CM C lassificat ion: Medical Co nfirmation Status: Confirmed Not Available [facility] 3 09:04:47 Osteoarth ritis 099400001 Active 2013 Osteoarthr itis; Original Code: 715.90 Matt ginal Codesystem : ICD-9-CM C lassificat ion: Medical Co nfirmation Status: Confirmed Not Available [facility] 3 09:04:47 Disorder of nervous system due to type 2 diabetes mellitus 839128285 Active 2013 Diabetes Mellitus with Neuropathy ; Original Code: 250.60 Matt ginal Codesystem : ICD-9-CM C lassificat ion: Medical Co nfirmation Status: Confirmed Last vist: 09/19/23 Dr[facility] Lio Galvez, [facility] 4 11:55:06 Onychomyc osis due to dermatoph yte 457360303 Active 2013 Onychomyco sis of toenail; Original Code: 110.1 Orig inal Codesystem : ICD-9-CM C lassificat ion: Medical Co nfirmation Status: Confirmed Not Available [facility] 3 09:04:47 Tobacco dependenc e syndrome 66408239 Active 2013 Tobacco user; Original Code: 305.1 Orig inal Codesystem : ICD-9-CM C lassificat ion: Medical Co nfirmation Status: Probable Not Available [facility] 3 09:04:47 Notes:_Paronychia, Toe_ (681 .11) Original Code: 681.11 Original Codesystem: ICD-9-CM Classification: Medical Confirmation Status: Confirmed Problem Notes None recorded. Procedures Surgical History Date Name Laterality Status Provider Name and Address Organization Details Recorded Time 09/29/2023 NAIL/Callu sDEBRIDEME NT completed [facility] [...] Updated DateTime 09/29/2023 167.64 cm 22.4 kg/m2 09276.34 g Eleanor Mccoy [place] - [facility] 09/29/2023 [...] SNOMED-CT Code Diagnosis ICD10 Code Diagnosis Note 38947 Andrews Crawford DPM [place] [facility] [address] [facility] [address] [place] [address] 09/29/2023 10:57:14 10/04/2023 10:21:27 Peripheral neuropathy due to type 2 diabetes mellitus 9230033726 107 E11.42 Onychomycosis 905006924 B35.1 Foot callus 802169910 L8 4 Health Concerns Section Related Observation LastModified by Organization Detai ls LastModified Time None Recorded Concern Status LastModified by Organization Details LastModified Time None Recorded Advance Directives Directive None Recorded Payers Encounter Date Sequence Insurance Name Policy Number Policy Sanchez Covered Member ID Sanchez Member ID Guarantor Name 09/29/2023 1 [email or web address] Iva Goyal [id number] Iva Goyal 09/29/2023 2 MEDICARE [place]: [employer] [facility] Iva Goyal [id number] Iva Goyal Notes Date Note Type Note [...] leg and foot. Andrews Crawford DPM [address] [place], [address], [place] - [facility] 09/30/2023 11:03:05 OBGyn Episode No OBEpisode recorded.
--- NOTE | 2024-09-18 11:37 | ED.GENADULT ---
HPI - General Adult General Date Seen: 09/18/24 Chief complaint: Weakness Stated complaint: feels dizzy, blood count is low Time Seen by Provider: 09/18/24 11:12 History of Present Illness HPI narrative: 79 yo F with a history of metastatic breast cancer. has had breast cancer for the past 7 years, had been on chemo but it sounds like her she is now feeling chemotherapy. She has known tumors in her lungs, brain. She follows with Oncology through the [facility] and is still is on outpatient chemotherapy but has been told that her cancer is no responding. There are plans for her to meet with the oncologist at [facility] next week and potentially start immunotherapy coming up in the future. No specific date to start that new treatment. 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 Through the course of her chemotherapy she has had trouble with anemia. She says her baseline hemoglobin is probably around 9 or 10. She has had about 2 or 3 previous blood transfusions for symptomatic anemia during her past few years of chemotherapy. She also has a history of AFib and is on metoprolol and Xarelto for that. She has had trouble related to her cancer for the past several weeks. It sounds like she was having a lot of itching related to her cancer so her doctors put her on gabapentin. The gabapentin caused significant dizziness and weakness. She was on it for a couple of days and actually ended up falling. Subsequently the gabapentin was stopped. She has been off it now for about a week or 10 days. She had fallen last week and was actually evaluated here in this ER in [place] on 09/13. She had a workup including head CT, C-spine CT, chest/abdomen/pelvis CT, lumbar spine CT and knee x-ray that showed no acute traumatic injuries. She was able to discharge from the ER. Last work in the ER CBC showed a white count of 5.2, platelet 293, hemoglobin of 8.8. Since discharging from the ER last week she had had some worsening dizziness. This prompted her to go in for an ER visit yesterday in the ER in [place]. She apparently had repeat lab work that showed a hemoglobin of 7.8. She is able to show me on her smart phone through the [facility] [employer] portal that she also had CT imaging of her head, C-spine, chest/abdomen/pelvis. This all showed no acute injuries. It is notable for the previously known a left cerebellar met, right greater than left lung Mets, small right pleural effusion. There was no other sign of internal bleeding or traumatic injury. She was feeling pretty weak, dizzy and presyncopal yesterday. Apparently they discussed getting a blood transfusion yesterday but the ER doctor told her that her hemoglobin was ?not low enough. ?. So she was discharged. Today she had called her oncologist reporting how weak and dizzy she was. Her oncologist placed orders for her to receive a transfusion of packed red cells to be done through the outpatient center in [place]. She and her family went to the outpatient center and was told she was too weak to get the transfusion as an outpatient and that she should go back to the ER. She was very frustrated with that situation so rather than go back to the ER at [place], she came here to the ER [place]. She says she is feeling relatively okay as long she is laying in bed but she gets dizzy with sitting up and very dizzy with standing. She cannot stand or walk more than a stepper to unassisted. She is not having any chest pain. No palpitations. No cough or fever. No abdominal pain. No vomiting. She is generally constipated has not had a bowel movement for several days but prior to that her bowel movements have all been normal and brown. No recent black or bloody stools. She has not had any new large expanding hematomas or other injuries from her fall last week. She has a past history of CHF but has never had trouble with fluid overload from other transfusions. No history of transfusion reactions or known antibody interactions. Related Data Home Medications ?Medication ?Instructions ?Recorded ?Confirmed amlodipine 5 mg tablet 5 mg PO DAILY 09/13/24 09/13/24 aspirin 81 mg capsule 81 mg PO DAILY 09/13/24 09/13/24 cholecalciferol (vitamin D3) 25 25 mcg PO DAILY 09/13/24 09/13/24 mcg (1,000 unit) capsule dapagliflozin propanediol 5 mg 5 mg PO DAILY 09/13/24 09/13/24 tablet (Farxiga) gabapentin 300 mg capsule 300 mg PO DAILY 09/13/24 09/13/24 hydrocodone 5 mg-acetaminophen 325 1 tab PO QID PRN 09/13/24 09/13/24 mg tablet insulin lispro 100 unit/mL 1 sliding scale dose continuous 09/13/24 09/13/24 subcutaneous solution subcutaneous infusion Q24H latanoprost 0.005 % eye drops 1 drp ophthalmic (eye) QPM 09/13/24 09/13/24 metoprolol tartrate 25 mg tablet 25 mg PO BID 09/13/24 09/13/24 omeprazole 20 mg capsule,delayed 20 mg PO DAILY 09/13/24 09/13/24 release perfluorohexyloctane (PF) 100 % 1 drp ophthalmic (eye) QID 09/13/24 09/13/24 eye drops (Miebo (PF)) pravastatin 20 mg tablet 20 mg PO DAILY 09/13/24 09/13/24 rivaroxaban 20 mg tablet (Xarelto) 20 mg PO QPM 09/13/24 09/13/24 tiotropium bromide 2.5 2 inh inhalation Q24H 09/13/24 09/13/24 mcg/actuation mist for inhalation (Spiriva Respimat) Allergies Allergy/AdvReac Type Severity Reaction Status Date / Time atenolol Allergy Verified 09/18/24 11:15 lidocaine Allergy Verified 09/18/24 11:15 betablockers Allergy Uncoded 09/13/24 11:40 PFSH PFSH Social History Smoking Status: Current every day smoker Exam Narrative: Exam Narrative: Constitutional: Appears well-developed and well-nourished. Alert. Conversant. She is polite and conversant while lying down but is too weak to sit up unassisted in when I try to sit her up for posterior lung exam she gets presyncopal so we laid her down. HENT: Head: Atraumatic. Nose: Nose normal. Mouth/Throat: Oral mucosa is clear and moist. no trismus. Pharynx normal. Tonsils symmetric. No tonsillar enlargement, erythema, or exudate. Eyes: Conjunctivae pale. EOM normal. Pupils equal, round, and reactive to light. No scleral icterus. Neck: Normal range of motion. Neck supple. No tracheal deviation present. Cardiovascular: Normal rate, regular rhythm. No gallop. No friction rub. No murmur heard. Symmetric radial artery pulses Pulmonary/Chest: Effort normal. No stridor. No respiratory distress. No wheezes. No rales. No rhonchi . No tenderness. Abdominal: Soft. Bowel sounds normal. No distension. No mass. No tenderness. No rebound. No guarding. Musculoskeletal: RUE: Normal range of motion. No tenderness. No deformity LUE: Normal range of motion. No tenderness. No deformity RLE: Normal range of motion. No edema. No tenderness. No deformity LLE: Normal range of motion. No edema. No tenderness. No deformity Neurological: Alert and oriented to person, place, and time. Normal strength. CN II-VII intact. No sensory deficit. GCS eye subscore is 4. GCS verbal subscore is 5. GCS motor subscore is 6. Normal coordination Skin: Pale but Skin is warm and dry. No rash noted. No mottling. Normal capillary refill. Psychiatric: Normal mood. Normal affect. Const: Vital Signs, click to edit/add: Vital Signs - 24 hr 09/18/24 11:15 09/18/24 13:01 09/18/24 13:01 Temperature 97.0 F L Pulse Rate 86 86 Pulse Rate [Pulse Oximeter] 87 Respiratory Rate 20 15 15 Blood Pressure 137/73 137/73 Blood Pressure [Le ft Upper Arm] 88/55 L Pulse Oximetry 97 93 93 Oxygen Delivery Me thod Room Air 09/18/24 13:02 09/18/24 13:15 09/18/24 13:30 Temperature Pulse Rate 86 Pulse Rate [Pulse Oximeter] Respiratory Rate 25 H 33 H 26 H Blood Pressure Blood Pressure [Le ft Upper Arm] Pulse Oximetry 95 Oxygen Delivery Me thod 09/18/24 13:31 09/18/24 14:25 09/18/24 14:26 Temperature 98.1 F Pulse Rate 94 Pulse Rate [Pulse Oximeter] Respiratory Rate 21 20 41 H Blood Pressure 153/85 H Blood Pressure [Le ft Upper Arm] Pulse Oximetry 95 Oxygen Delivery Me thod Room Air 09/18/24 14:28 09/18/24 14:30 09/18/24 14:31 Temperature Pulse Rate 93 Pulse Rate [Pulse Oximeter] Respiratory Rate 24 32 H Blood Pressure 153/85 H 124/58 L Blood Pressure [Le ft Upper Arm] Pulse Oximetry 95 Oxygen Delivery Me thod 09/18/24 14:32 09/18/24 14:45 09/18/24 14:46 Temperature Pulse Rate 97 93 94 Pulse Rate [Pulse Oximeter] Respiratory Rate 22 34 H 51 H Blood Pressure 170/82 H Blood Pressure [Le ft Upper Arm] Pulse Oximetry 96 95 96 Oxygen Delivery Me thod 09/18/24 14:48 09/18/24 15:00 09/18/24 15:01 Temperature 98.0 F Pulse Rate 92 90 89 Pulse Rate [Pulse Oximeter] Respiratory Rate 20 22 12 Blood Pressure 170/82 H 168/80 H Blood Pressure [Le ft Upper Arm] Pulse Oximetry 97 96 94 Oxygen Delivery Me od Room Air 09/18/24 15:15 09/18/24 15:16 09/18/24 15:18 Temperature 98.7 F Pulse Rate 93 91 90 Pulse Rate [Pulse Oximeter] Respiratory Rate 16 20 Blood Pressure 156/78 H 156/78 H Blood Pressure [Le ft Upper Arm] Pulse Oximetry 98 99 [facility] 09/18/24 15:30 09/18/24 15:31 09/18/24 15:33 Temperature Pulse Rate 90 90 89 Pulse Rate [Pulse Oximeter] Respiratory Rate 19 19 22 Blood Pressure 195/89 H 192/90 H Blood Pressure [Le ft Upper Arm] Pulse Oximetry 96 95 96 Oxygen Delivery Me thod 09/18/24 15:35 09/18/24 15:48 09/18/24 15:58 Temperature 98.4 F Pulse Rate 90 98 86 Pulse Rate [Pulse Oximeter] Respiratory Rate 17 20 27 H Blood Pressure 166/87 H 172/83 H Blood Pressure [Le ft Upper Arm] Pulse Oximetry 96 96 94 Oxygen Delivery Me thod Room Air 09/18/24 16:00 09/18/24 16:01 09/18/24 16:03 Temperature Pulse Rate 103 H 101 H 96 Pulse Rate [Pulse Oximeter] Respiratory Rate 28 H 19 19 Blood Pressure 181/90 H 172/83 H Blood Pressure [Le ft Upper Arm] Pulse Oximetry 92 96 96 Oxygen Delivery Me thod 09/18/24 16:03 09/18/24 16:03 09/18/24 16:03 Temperature Pulse Rate 96 96 96 Pulse Rate [Pulse Oximeter] Respiratory Rate 19 19 19 Blood Pressure 172/83 H 172/83 H 172/83 H Blood Pressure [Le ft Upper Arm] Pulse Oximetry 96 96 96 Oxygen Delivery Me thod 09/18/24 16:15 09/18/24 16:16 09/18/24 16:18 Temperature 98.9 F Pulse Rate 92 92 92 Pulse Rate [Pulse Oximeter] Respiratory Rate 12 13 20 Blood Pressure 170/92 H 170/92 H Blood Pressure [Le ft Upper Arm] Pulse Oximetry 96 95 96 Oxygen Delivery Me thod Room Air 09/18/24 16:30 09/18/24 16:31 09/18/24 16:45 Temperature Pulse Rate 93 91 93 Pulse Rate [Pulse Oximeter] Respiratory Rate 13 23 24 Blood Pressure 178/91 H Blood Pressure [Le ft Upper Arm] Pulse Oximetry 96 97 93 Oxygen Delivery Me thod 09/18/24 16:46 09/18/24 16:50 09/18/24 16:54 Temperature 98.8 F Pulse Rate 90 91 92 Pulse Rate [Pulse Oximeter] Respiratory Rate 31 H 20 26 H Blood Pressure 186/89 H 177/97 H 177/97 H Blood Pressure [Le ft Upper Arm] Pulse Oximetry 93 95 94 Oxygen Delivery Me thod Room Air 09/18/24 17:00 09/18/24 17:01 09/18/24 17:15 Temperature Pulse Rate 91 Pulse Rate [Pulse Oximeter] Respiratory Rate 17 12 37 H Blood Pressure 194/95 H Blood Pressure [Le ft Upper Arm] Pulse Oximetry 93 Oxygen Delivery Me thod 09/18/24 17:16 Temperature Pulse Rate Pulse Rate [Pulse Oximeter] Respiratory Rate 11 L Blood Pressure 189/97 H Blood Pressure [Le ft Upper Arm] Pulse Oximetry Oxygen Delivery Me thod Course Course ED Course: Multiple rechecks during her transfusion. No signs or symptoms of transfusion reaction. Reevaluation(s) Reevaluation #1: Recheck-patient says she has been up in the hallway now 3 times and is feeling much less dizzy and unsteady. She is feeling better and she is urgently requesting discharge. Transfusion is just now been completed. Vital Signs Vital signs: Initial Vital Signs Temperature 97.0 F L 09/18/24 11:15 Temperature Source Temporal Artery Scan 09/18/24 11:15 Pulse Rate 87 09/18/24 11:15 Respiratory Rate 20 09/18/24 11:15 Blood Pressure 88/55 L 09/18/24 11:15 Blood Pressure Mean 66 L 09/18/24 11:15 Blood Pressure Position High-Fowlers 09/18/24 11:15 Pulse Oximetry 97 09/18/24 11:15 Oxygen Delivery Method Room Air 09/18/24 11:15 Vital Signs Temperature 97.0 F L 09/18/24 11:15 Pulse Rate 87 09/18/24 11:15 Respiratory Rate 20 09/18/24 11:15 Blood Pressure 88/55 L 09/18/24 11:15 Pulse Oximetry 97 09/18/24 11:15 Oxygen Delivery Method Room Air 09/18/24 11:15 Temperature 98.8 F 09/18/24 16:50 Pulse Rate 91 09/18/24 17:01 Respiratory Rate 11 L 09/18/24 17:16 Blood Pressure 189/97 H 09/18/24 17:16 Pulse Oximetry 93 09/18/24 17:01 Oxygen Delivery Method Room Air 09/18/24 16:50 Medications Administered Medications: Discontinued Medications Generic Name Dose Route Start Last Admin Trade Name Freq PRN Reason Stop Dose Admin Heparin Sodium (Porcine) 500 unit 09/18/24 17:15 09/18/24 17:21 Heparin 500 Unit/5 Ml Syringe IVF 09/18/24 17:16 500 unit ONCE ONE Administration Ondansetron HCl 4 mg 09/18/24 12:16 09/18/24 12:34 Ondansetron 2 Mg/Ml Inj IVP 09/18/24 12:17 4 mg ONCE ONE Administration Sodium Chloride 250 ml 09/18/24 11:41 09/18/24 14:35 0.9 % Sodium Chloride 500 Ml IV 09/19/24 23:59 250 ml ONCE PRN Administration Medical Decision Making MDM Narrative Medical decision making narrative: 79-year-old female with a complex past history including AFib on Xarelto (no signs of current RVR or arrhythmia) and a known history of metastatic breast cancer with known lung and brain Mets who is currently on chemotherapy and radiation. She presents to the ER today desiring blood transfusion because she has previously known anemia with symptoms of dizziness and lightheadedness lab workup here in the ER last week showed hemoglobin of 8.8 which is slightly down from her chronic baseline between 9 and 10. Yesterday in the ER in [place] she had a lab value of 7.8. Today our lab measures it at 8.2. I think this is similar to her labs from yesterday and probably reflects that she is dehydrated because she has not been eating or drinking this morning. And she is symptomatic and likely due to her anemia with overall weakness, lightheadedness. Her initial triage blood pressure was 88/50. Subsequent blood pressures have been normal. Based on her symptoms and low blood pressure reading I do think she qualifies for transfusion of packed red cells even though her hemoglobin is above 7.0. Although she had 1 low blood pressure reading subsequent readings were normal and I do not think that she is currently in shock from anemia from this does not require emergent transfusion upon crossed red cells. Ironically, she had similar symptoms yesterday with hemoglobin similar today and was not transfused while in the ER in [place]. She is upset about that. Her oncologist try to arrange an outpatient red cell transfusion today based on her symptoms and hemoglobin measurement from yesterday but the outpatient tract infusion center refused to give her the bloods because she was too symptomatic today so was referred back to the ER. With relative stability of her hemoglobin measurement today compared to yesterday there is no sign of any active bleeding. She denies any recent black or bloody stools to raise concern for GI bleed. Although she had a fall last week and is on Xarelto CT scan of her chest abdomen and pelvis last week here in this ER and CT scan of her chest/abdomen/pelvis done in the ER in [place] yesterday showed no sign of internal bleeding . A small we suspect that her anemia is probably due to bone marrow suppression from her chemotherapy and malignancy. She is not otherwise febrile, or having symptoms to raise concern for sepsis or septic shock at the cause for her dizziness and lightheadedness. EKG does not show any significant arrhythmia or ischemia. Lab work shows mild hyponatremia. Otherwise normal electrolytes and kidney function. Blood sugars 140. Venous lactic acid is normal. Discussed with the patient and her family potential to start transfusion here in the ER and admit for symptom management and hemoglobin monitoring overnight. Patient strongly wants to get her transfusion here in the ER and get home this afternoon. Discussed return precautions. Also discussed the need for follow-up hemoglobin monitoring with her oncology team and primary care providers. Patient is eager for discharge and very pleased with getting a transfusion here in the ER today. Lab Data Labs: Lab Results 09/18/24 Range/Units 12:09 WBC 7.82 (4.50-11.00) K/uL RBC 2.75 L (4.00-5.20) m/uL Hgb 8.2 L (12.0-16.0) gm/dL Hct 25.5 L (33.0-51.0) % MCV 93 (80-100) fL MCH 30 (26-34) pg MCHC 32 (32-36) gm/dL RDW Coeff of Shey 15.4 (11.5-15.5) % Plt Count 327 (140-440) K/uL Neut % (Auto) 74.2 H (42.0-72.0) % Lymph % (Auto) 13.9 L (20-44) % Bledsoe % (Auto) 10.9 (0.0-11.0) % Eos % (Auto) 0.4 (0.0-7.0) % Baso % (Auto) 0.3 (0.0-3.0) % Neut # (Auto) 5.80 (1.7-7.0) K/uL Lymph # (Auto) 1.10 (0.90-2.90) K/uL Bledsoe # (Auto) 0.90 (0.00-0.90) K/UL Eos # (Auto) 0.03 (0.00-0.50) K/uL Baso # (Auto) 0.02 (0.00-0.30) K/uL Abs Immat Gran (auto) 0.02 (0.00-0.30) K/uL Imm/Tot Granulo (auto) 0.3 % Sodium 134 L (135-149) mmol/L Potassium 4.1 (3.6-5.1) mmol/L Chloride 102 (96-114) mmol/L Carbon Dioxide 24 (20-32) mmol/L Anion Gap 8 (7-15) mEq/L BUN 25 (7-30) mg/dL Creatinine 1.5 (0.5-1.5) mg/dL Estimated Creat Clear 27.67 Estimated GFR 35 ml/min Glucose 140 H (60-115) mg/dL Lactate 1.2 (0.5-1.9) mmol/L Calcium 8.9 (8.4-10.6) mg/dL Blood Type O Positive Antibody Screen NEGATIVE Crossmatch (AHG) See Detail ECG Data Attestation: I personally reviewed and interpreted this ECG as follows: Interpretation: Normal sinus rhythm Rate: 88 FL: 198 QRS axis: normal ST segment/T wave: No ST segment elevation or depression QTc: 467 Discharge Plan Discharge Clinical Impression: Anemia Patient Disposition: Home, Self-Care Condition: Stable Instructions: Anemia (ED) Additional Instructions: Please follow-up with your oncologist or your regular doctor within 2 days for a recheck and repeat hemoglobin measurement. As we discussed, if you have any trouble breathing, fever, or if you develop worsening symptoms of dizziness, unsteadiness, any signs of black or bloody stool, or any concerns, please come back to the ER right away to be rechecked. Prescriptions: No Action metoprolol tartrate 25 mg tablet 25 mg PO BID pravastatin 20 mg tablet 20 mg PO DAILY Xarelto 20 mg tablet 20 mg PO QPM aspirin 81 mg capsule 81 mg PO DAILY hydrocodone-acetaminophen 5-325 mg tablet 1 tab PO QID PRN dapagliflozin propanediol [Farxiga] 5 mg tablet 5 mg PO DAILY amlodipine 5 mg tablet 5 mg PO DAILY gabapentin 300 mg capsule 300 mg PO DAILY insulin lispro 100 unit/mL solution 1 sliding scale dose continuous subcutaneous infusion Q24H Rx Instructions: INSULIN PUMP - FOLLOW SLIDING SCALE UP TO 75 UNITS IN 24 HOURS VIA INSULIN PUMP omeprazole 20 mg capsule,delayed release(DR/EC) 20 mg PO DAILY cholecalciferol (vitamin D3) 25 mcg (1,000 unit) capsule 25 mcg PO DAILY Spiriva Respimat 2.5 mcg/actuation mist 2 inh inhalation Q24H latanoprost 0.005 % drops 1 drp ophthalmic (eye) QPM Miebo (PF) 100 % drops 1 drp ophthalmic (eye) QID Follow Up/Referrals: Khari Richards MD [Primary Care Provider] - Stand Alone Forms: Maps InDeed Info Instructions
[2024-09-18 12:23] LABS: Lactate* 1.2 mmol/L (0.5-1.9)
[2024-09-18 12:28] LABS: Basophils Absolute Auto 0.02 K/uL (0.00-0.30); Basophils Percent Auto 0.3 % (0.0-3.0); Eosinophils Absolute Auto 0.03 K/uL (0.00-0.50); Eosinophils Percent Auto 0.4 % (0.0-7.0); Hematocrit 25.5 % (33.0-51.0); Hemoglobin* 8.2 gm/dL (12.0-16.0); Immature Granulocytes Abs Auto 0.02 K/uL (0.00-0.30); Immature Granulocytes Pct Auto 0.3 %; Lymphocytes Percent Auto 13.9 % (20-44); Mean Corpuscular HGB Conc 32 gm/dL (32-36); Mean Corpuscular Hemoglobin 30 pg (26-34); Mean Corpuscular Volume 93 fL (80-100); Monocytes Percent Auto 10.9 % (0.0-11.0); Neutrophils Percent Auto 74.2 % (42.0-72.0); Platelet Count* 327 K/uL (140-440); RDW Coefficient of Variation % 15.4 % (11.5-15.5); Red Blood Count 2.75 m/uL (4.00-5.20); Slide Review Reflex No; White Blood Count* 7.82 K/uL (4.50-11.00)
--- OUTSIDE RECORDS SUMMARY | 2024-09-18 12:29 | XMS_ITS | Clinical Summary ---
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 Gender Identity Not on file Sexual Orientation [...] 13, 02/15/2011 Medical Devices Implanted Type Area Director Work Device Identifier Shelf Expiration Date Model / Serial / Lot Lens Iol Zcb00 19.0 - [id number] Implanted:Qty: 1 on 08/25/2011 at [facility] Right: Eye 12/28/2013 ZCB00# / [id number] / Port 8fr Powerport Clearvue Slim Intermediate Silcn - [id number] Implanted:Qty: 1 on 03/04/2023 by Kaylynn Espinoza MD at [facility] [employer] 10/27/2024 [id number] / / [id number] Procedures Procedure Name Priority Date/Time Associated Diagnosis [...] 6-10 ng/L ng/L 09/17/2024 4:07 PM CDT [facility] Blood BLOOD SPECIMEN / Unknown Venipuncture / Unknown 09/17/2024 3:42 PM CDT 09/17/2024 3:47 PM CDT us Shikha Palm MD CHEMISTRY Final Result [facility] [address] [address] * (ABNORMAL) URINALYSIS MICROSCOPIC (09/17/2024 3:27 PM CDT) RBC 0-2 0-2, None Seen /HPF 09/17/2024 3:36 PM CDT [facility] WBC 3-5 0-2, 3-5, None Seen /HPF 09/17/2024 3:36 PM CDT [facility] BACTERIA Few None Seen, Rare, Few Bacteria/H PF 09/17/2024 3:36 PM CDT [facility] EPITHELIAL CELLS Moderate(A ) None Seen, Few Epi/HPF 09/17/2024 3:36 PM [facility] Urine URINE SPECIMEN / Unknown Non-Blood / Unknown 09/17/2024 3:27 PM CDT 09/17/2024 3:30 PM CDT us Shikha Palm MD URINE Final Result [facility] [address] [address] * (ABNORMAL) UA W/ SEDIMENT EXAM REFLEXED PER CRITERIA (09/17/2024 3:27 PM CDT) COLOR Yellow Yellow Color 09/17/2024 3:35 PM [facility] CLARITY Clear Clear Clarity 09/17/2024 3:35 PM [facility] SPECIFIC GRAVITY,URINE 1.010 1.010, 1.015, 1.020, 1.025 09/17/2024 3:35 PM [facility] PH,URINE 6.0 6.0, 7.0, 8.0, 5.5, 6.5, 7.5, 8.5 09/17/2024 3:35 PM [facility] UROBILINOGEN, QUALITATIVE Normal Normal EU/dl 09/17/2024 3:35 PM [facility] PROTEIN, URINE Negative Negative mg/dL 09/17/2024 3:35 PM [facility] GLUCOSE, URINE >=1000(A) Negative mg/dL 09/17/2024 3:35 PM [facility] KETONES,URINE Negative Negative mg/dL 09/17/2024 3:35 PM [facility] BILIRUBIN,URI NE Negative Negative 09/17/2024 3:35 PM [facility] OCCULT BLOOD,URINE Negative Negative 09/17/2024 3:35 PM [facility] NITRITE Negative Negative 09/17/2024 3:35 PM [facility] LEUKOCYTE ESTERASE Negative Negative 09/17/2024 3:35 PM [facility] Urine URINE SPECIMEN / Unknown Non-Blood / Unknown 09/17/2024 3:27 PM CDT 09/17/2024 3:30 PM CDT Result Herlinda Palm MD URINE Final Result [facility] [address] [place] [phone] * CT ABDOMEN PELVIS WO (09/17/2024 2:40 [...] 6-10 ng/L ng/L 09/17/2024 2:23 PM CDT [facility] Blood BLOOD SPECIMEN / Unknown Line/Port / Unknown 09/17/2024 1:42 PM CDT 09/17/2024 1:52 PM CDT [facility] 09/17/2024 2:23 PM CDT hs-cTnT [...] population. Shikha Palm MD CHEMISTRY Final Result [facility] [address] [address] * (ABNORMAL) CBC WITH AUTO DIFFERENTIAL (09/17/2024 1:42 PM CDT) [facility] WHITE BLOOD COUNT 8.5 4.5 - 11.0 thou/cu mm 09/17/2024 1:57 PM [facility] RED BLOOD COUNT 2.61(L) 4.00 - 5.20 mil/cu mm 09/17/2024 1:57 PM [facility] HEMOGLOBIN 7.8(L) 12.0 - 16.0 g/dL 09/17/2024 1:57 PM [facility] HEMATOCRIT 24.3(L) 33.0 - 51.0 % 09/17/2024 1:57 PM [facility] MCV 93 80 - 100 fL 09/17/2024 1:57 PM [facility] MCH 29.9 26.0 - 34.0 pg 09/17/2024 1:57 PM [facility] MCHC 32.1 32.0 - 36.0 g/dL 09/17/2024 1:57 PM [facility] RDW 15.4 11.5 - 15.5 % 09/17/2024 1:57 PM [facility] PLATELET COUNT 317 140 - 440 thou/cu mm 09/17/2024 1:57 PM [facility] MPV 9.1 6.5 - 11.0 fL 09/17/2024 1:57 PM [facility] % NEUT 72.2 % 09/17/2024 1:57 PM [facility] % LYMPH 14.7 % 09/17/2024 1:57 PM [facility] % MONO 12.3 % 09/17/2024 1:57 PM [facility] % EOS 0.6 % 09/17/2024 1:57 PM [facility] % BASO 0.2 % 09/17/2024 1:57 PM [facility] ABSOLUTE NEUTROPHILS 6.1 1.7 - 7.0 thou/cu mm 09/17/2024 1:57 PM [facility] ABSOLUTE LYMPHOCYTES 1.3 0.9 - 2.9 thou/cu mm 09/17/2024 1:57 PM [facility] ABSOLUTE MONOCYTES 1.0(H) <0.9 thou/cu mm 09/17/2024 1:57 PM CDT [facility] ABSOLUTE EOSINOPHILS 0.1 <0.5 thou/cu mm 09/17/2024 1:57 PM CDT [facility] ABSOLUTE BASOPHILS 0.0 <0.3 thou/cu mm 09/17/2024 1:57 PM CDT [facility] Blood BLOOD SPECIMEN / Unknown Line/Port / Unknown 09/17/2024 1:42 PM CDT 09/17/2024 1:52 PM CDT us Shikha Palm MD HEMATOLOGY Final Result Performing Organization Address [facility] de Phone Number [address] [address] * TSH WITH REFLEX (09/17/2024 1:42 PM CDT) TSH 2.31 0.27 - 4.20 uIU/mL 09/17/2024 2:23 PM CDT [facility] Blood BLOOD SPECIMEN / Unknown Line/Port / Unknown 09/17/2024 1:42 PM CDT 09/17/2024 1:52 PM CDT Narrative [facility] - 09/17/2024 2:23 PM CDT In Adults, TSH values between 5.00 and 10.00 uIU/ml do not necessarily indicate the presence of Hypothyroidism. Correlation with clinical findings such as presence of goiter and/or Thyroperoxidase (TPO) Antibody may be helpful. For more information please refer to SONAL 2004; 291: 228-238. us Shikha Palm MD CHEMISTRY Final Result Performing Organization Address [facility] Co de Phone Number [address] [address] * PHOSPHORUS (09/17/2024 1:42 PM CDT) PHOSPHORUS 3.6 2.5 - 4.5 mg/dL 09/17/2024 2:23 PM [facility] Blood BLOOD SPECIMEN / Unknown Line/Port / Unknown 09/17/2024 1:42 PM CDT 09/17/2024 1:52 PM CDT us Shikha Palm MD CHEMISTRY Final Result Performing Organization Address [facility]/ZIP Co de Phone Number [address] [address] * MAGNESIUM (09/17/2024 1:42 PM CDT) MAGNESIUM 1.8 1.6 - 2.4 mg/dL 09/17/2024 2:23 PM [facility] Blood BLOOD SPECIMEN / Unknown Line/Port / Unknown 09/17/2024 1:42 PM CDT 09/17/2024 1:52 PM CDT us Shikha Palm MD CHEMISTRY Final Result Performing Organization Address [facility] Co de Phone Number [address] [address] * (ABNORMAL) BASIC METABOLIC PANEL (09/17/2024 1:42 PM CDT) SODIUM 135(L) 136 - 145 mmol/L 09/17/2024 2:23 PM [facility] POTASSIUM 4.2 3.5 - 5.1 mmol/L 09/17/2024 2:23 PM [facility] CHLORIDE 102 98 - 107 mmol/L 09/17/2024 2:23 PM [facility] CO2,TOTAL 24 22 - 29 mmol/L 09/17/2024 2:23 PM [facility] ANION GAP 9 5 - 18 09/17/2024 2:23 PM [facility] GLUCOSE 190(H) 70 - 99 mg/dL 09/17/2024 2:23 PM [facility] CALCIUM 8.9 8.8 - 10.4 mg/dL 09/17/2024 2:23 PM [facility] Comment: Reference ranges for this test were updated on 04/03/2024 to reflect our healthy population more accurately. Reference range changes are not retroactively applied to results, but previous results using the same methodology can be interpreted in the context of the new reference range. BUN 26(H) 8 - 23 mg/dL 09/17/2024 2:23 PM T [facility] CREATININE 1.53(H) 0.50 - 0.90 mg/dL 09/17/2024 2:23 PM T [facility] BUN/CREAT RATIO 17 10 - 20 2:23 PM T [facility] eGFR 35(L) >90 mL/min/1. 73m2 09/17/2024 2:23 PM T [facility] Comment:As of 2021, eG FR is [...] CDT Shikha Palm MD CHEMISTRY Final Result [facility] [address] [address] from Last 3 Months Insurance MEDICARE PART [...] 4:47 PM 10/03/2013 2:10 AM Care Teams Mold Dresser Relationship Specialty Start Date End Date Jenny Vaca MD [address], [place] [address] PCP - General 04/29/09
[2024-09-18] MEDS: ONDANSETRON 2 MG/ML inj 4 MG IVP (12:34)
[2024-09-18 12:40] LABS: Chloride* 102 mmol/L (96-114)
[2024-09-18 12:41] LABS: Potassium* 4.1 mmol/L (3.6-5.1); Sodium* 134 mmol/L (135-149)
[2024-09-18 12:44] LABS: Anion Gap 8 mEq/L (7-15); Blood Urea Nitrogen* 25 mg/dL (7-30); Calcium* 8.9 mg/dL (8.4-10.6); Carbon Dioxide* 24 mmol/L (20-32); Creatinine* 1.5 mg/dL (0.5-1.5); Est. Creatinine Clearance* 27.67; Estimated Glomerular Filt Rate 35 ml/min; Glucose* 140 mg/dL (60-115)
[2024-09-18] MEDS: 0.9 % SODIUM CHLORIDE 500 ML 250 ML IV (14:35)
[2024-09-18] MEDS: HEPARIN 500 UNIT/5 ML SYRINGE IVF (17:21)
== END 2024-09-18 17:34 | disposition home or self-care (01) ==
PROVIDERS: Emergency Provider Emergency Medicine; PCP Internal Medicine
DX: D64.81 Anemia due to antineoplastic chemotherapy (principal); C78.02 Secondary malignant neoplasm of left lung; C78.01 Secondary malignant neoplasm of right lung; C79.31 Secondary malignant neoplasm of brain; I48.91 Unspecified atrial fibrillation; Z79.01 Long term (current) use of anticoagulants
CPT/HCPCS: 36415; 36430; 80048; 83605; 85025; 86850; 86900; 86901; 86922; 93005; 99284; 99285; J1642; J2405; J7030; P9016

== ENCOUNTER 2024-09-22 13:13 | Emergency (ER) | payer MEDICARE, OTHER, SELFPAY ==
[2024-09-22] VITALS (7 sets, daily range): BP systolic 75–141; BP diastolic 46–71; PULSE 72–77; RESP 20; TEMP 36.3; O2SAT 97–99
--- OUTSIDE RECORDS SUMMARY | 2024-09-22 13:15 | XMS_ITS | Clinical Summary ---
Author Organization [employer] [facility] [employer] Address [address] [place] [address] Care Team Providers Care Upholsterer Apprentice Name Role Phone Jenny Vaca MD Primary [...] afterwards 600 mL 5 4 2:47 PM [employer]IFF 03/04/20 Active Active Problems Problem Noted Date Diagnosed Date Primary open angle glaucoma, right eye 4 Posterior capsule opacification 02/08/2012 Cataract 08/24/2011 Overview (08/24/2011): Right Eye Type II or unspecified type diabetes mellitus without mention of complication, not stated as uncontrolled 01/14/2004 Encounters Date Type Department Care Team Description 09/18/2024 9:33 AM CDT - 09/18/2024 11:59 PM CDT Hospital Encounter [address] [address] Encounter for blood transfusion, without reported diagnosis 09/18/2024 Orders Only [address] [address] Marlo Diallo [facility] 09/17/2024 12:59 PM CDT - 09/17/2024 4:31 PM CDT Emergency [address] [address] Shikha Palm MD Weakness (Primary Dx); Repeated [...] on file 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] (HS) ONE TIME (09/17/2024 3:42 PM CDT) Pathologist [facility] TROPONIN T HS 41(H) 6-10 ng/L ng/L 09/17/2024 4:07 PM CDT [facility] Blood BLOOD SPECIMEN / Unknown Venipuncture / Unknown 09/17/2024 3:42 PM CDT 09/17/2024 3:47 PM CDT us Shikha Palm MD CHEMISTRY Final Result [facility] [address] [address] * (ABNORMAL) URINALYSIS MICROSCOPIC (09/17/2024 3:27 PM CDT) Pathologist [facility] RBC 0-2 0-2, None Seen /HPF 09/17/2024 3:36 PM CDT [facility] WBC 3-5 0-2, 3-5, None Seen /HPF 09/17/2024 3:36 PM CDT [facility] BACTERIA Few None Seen, Rare, Few Bacteria/H PF 09/17/2024 3:36 PM [facility] EPITHELIAL CELLS Moderate(A ) None Seen, Few Epi/HPF 09/17/2024 3:36 PM [facility] Urine URINE SPECIMEN / Unknown Non-Blood / Unknown 09/17/2024 3:27 PM CDT 09/17/2024 3:30 PM CDT us Shikha Palm MD URINE Final Result [facility] [address] [address] * (ABNORMAL) UA W/ SEDIMENT EXAM REFLEXED PER CRITERIA (09/17/2024 3:27 PM CDT) COLOR Yellow Yellow Color 09/17/2024 3:35 PM [facility] CLARITY Clear Clear Clarity 09/17/2024 3:35 PM [facility] SPECIFIC GRAVITY,URINE 1.010 1.010, 1.015, 1.020, 1.025 09/17/2024 3:35 PM [facility] PH,URINE 6.0 6.0, 7.0, 8.0, 5.5, 6.5, 7.5, 8.5 09/17/2024 3:35 PM [facility] UROBILINOGEN, QUALITATIVE Normal Normal EU/dl 09/17/2024 3:35 PM [facility] PROTEIN, URINE Negative Negative mg/dL 09/17/2024 3:35 PM [facility] GLUCOSE, URINE >=1000(A) Negative mg/dL 09/17/2024 3:35 PM [facility] KETONES,URINE Negative Negative mg/dL 09/17/2024 3:35 PM [facility] BILIRUBIN,URI NE Negative Negative 09/17/2024 3:35 PM [facility] OCCULT BLOOD,URINE Negative Negative 09/17/2024 3:35 PM [facility] NITRITE Negative Negative 09/17/2024 3:35 PM [facility] LEUKOCYTE ESTERASE Negative Negative 09/17/2024 3:35 PM CDT [facility] Urine URINE SPECIMEN / Unknown Non-Blood / Unknown 09/17/2024 3:27 PM CDT 09/17/2024 3:30 PM CDT Result Herlinda Palm MD URINE Final Result [facility] [address] [address] * CT ABDOMEN PELVIS WO (09/17/2024 2:40 PM CDT) Anatomical Region Laterality Modality Abdomen, Pelvis, AORTA, LIVER, SPLEEN Computed Tomography Result [facility] us Shikha Palm MD CT Final Result * CT 2D RECONSTRUCTION LUMBAR SPINE (09/17/2024 2:39 PM CDT) Anatomical Region Laterality Modality PATELLA, Spine Computed Tomogra phy Result [facility] us Shikha Palm MD CT Final Result * CT SPINE CERVICAL WO (09/17/2024 2:39 PM CDT) Anatomical Region Laterality Modality CERVICAL SPINE, NECK, Spine Comp uted Tomography us Shikha Palm MD CT Final Result * CT HEAD BRAIN WO (09/17/2024 2:39 PM CDT) Anatomical Region Laterality Modality HEAD, BRAIN Computed Tomogra phy Result Herlinda Palm MD CT Final Result * EKG 12 LEAD (09/17/2024 1:47 PM CDT) Interpretation Sinus rhythm with 1st degree A-V block Otherwise normal ECG When compared with ECG of 27-May-2023 09:18, No significant change was found BEYOND NOW Ventricular Rate 84 BPM BEYOND NOW Atrial Rate 84 BPM [facility]YOND NOW P-R Interval 234 ms BEYOND NOW QRS Duration 84 ms BEYOND NOW QT 404 ms [facility] NOW QTc 477 ms BEYOND NOW P Bradford 67 degrees BEYOND NOW R Bradford 30 degrees BEYOND NOW T Bradford 57 degrees BEYOND NOW 09/17/2024 1:47 PM CDT 09/19/2024 8:24 PM CDT us Shikha Palm MD EKG ORD Final Result [place], [place] * (ABNORMAL) TROPONIN T (HS) ACUTE W/2HR REFLEX (09/17/2024 1:42 PM CDT) TROPONIN T HS 41(H) 6-10 ng/L ng/L 09/17/2024 2:23 PM CDT [facility] Blood BLOOD SPECIMEN / Unknown Line/Port / Unknown 09/17/2024 1:42 PM CDT 09/17/2024 1:52 PM CDT Narrative [facility] - 09/17/2024 2:23 PM CDT hs-cTnT (Elecsys Troponin [...] population. Shikha Palm MD CHEMISTRY Final Result [facility] [address] [address] * (ABNORMAL) CBC WITH AUTO DIFFERENTIAL (09/17/2024 1:42 PM CDT) WHITE BLOOD COUNT 8.5 4.5 - 11.0 thou/cu mm 09/17/2024 1:57 PM [facility] RED BLOOD COUNT 2.61(L) 4.00 - 5.20 mil/cu mm 09/17/2024 1:57 PM [facility] HEMOGLOBIN 7.8(L) 12.0 - 16.0 g/dL 09/17/2024 1:57 PM [facility] HEMATOCRIT 24.3(L) 33.0 - 51.0 % 09/17/2024 1:57 PM [facility] MCV 93 80 - 100 fL 09/17/2024 1:57 PM [facility] MCH 29.9 26.0 - 34.0 pg 09/17/2024 1:57 PM [facility] MCHC 32.1 32.0 - 36.0 g/dL 09/17/2024 1:57 PM [facility] RDW 15.4 11.5 - 15.5 % 09/17/2024 1:57 PM [facility] PLATELET COUNT 317 140 - 440 thou/cu mm 09/17/2024 1:57 PM [facility] MPV 9.1 6.5 - 11.0 fL 09/17/2024 1:57 PM [facility] % NEUT 72.2 % 09/17/2024 1:57 PM [facility] % LYMPH 14.7 % 09/17/2024 1:57 PM [facility] % MONO 12.3 % 09/17/2024 1:57 PM [facility] % EOS 0.6 % 09/17/2024 1:57 PM [facility] % BASO 0.2 % 09/17/2024 1:57 PM [facility] ABSOLUTE NEUTROPHILS 6.1 1.7 - 7.0 thou/cu mm 09/17/2024 1:57 PM [facility] ABSOLUTE LYMPHOCYTES 1.3 0.9 - 2.9 thou/cu mm 09/17/2024 1:57 PM [facility] ABSOLUTE MONOCYTES 1.0(H) <0.9 thou/cu mm 09/17/2024 1:57 PM [facility] ABSOLUTE EOSINOPHILS 0.1 <0.5 thou/cu mm 09/17/2024 1:57 PM [facility] ABSOLUTE BASOPHILS 0.0 <0.3 thou/cu mm 09/17/2024 1:57 PM [facility] Blood BLOOD SPECIMEN / Unknown Line/Port / Unknown 09/17/2024 1:42 PM CDT 09/17/2024 1:52 PM CDT us Shikha Palm MD HEMATOLOGY Final Result [facility] [address] [address] * TSH WITH REFLEX (09/17/2024 1:42 PM CDT) TSH 2.31 0.27 - 4.20 uIU/mL 09/17/2024 2:23 PM [facility] Blood BLOOD SPECIMEN / Unknown Line/Port / Unknown 09/17/2024 1:42 PM CDT 09/17/2024 1:52 PM CDT [facility] - 09/17/2024 2:23 PM CDT In Adults, TSH values between 5.00 and 10.00 uIU/ml do not necessarily indicate the presence of Hypothyroidism. Correlation with clinical findings such as presence of goiter and/or Thyroperoxidase (TPO) Antibody may be helpful. For more information please refer to SONAL 2004; 291: 228-238. us Shikha Palm MD CHEMISTRY Final Result Performing Organization Address [facility] Co de Phone Number [address] [address] * PHOSPHORUS (09/17/2024 1:42 PM CDT) PHOSPHORUS 3.6 2.5 - 4.5 mg/dL 09/17/2024 2:23 PM CDT [facility] Blood BLOOD SPECIMEN / Unknown Line/Port / Unknown 09/17/2024 1:42 PM CDT 09/17/2024 1:52 PM CDT us Shikha Palm MD CHEMISTRY Final Result Performing Organization Address [facility] de Phone Number [address] [address] * MAGNESIUM (09/17/2024 1:42 PM CDT) MAGNESIUM 1.8 1.6 - 2.4 mg/dL 09/17/2024 2:23 PM CDT [facility] Blood BLOOD SPECIMEN / Unknown Line/Port / Unknown 09/17/2024 1:42 PM CDT 09/17/2024 1:52 PM CDT Shikha Palm MD CHEMISTRY Final Result Performing Organization Address [facility] Co de Phone Number [address] [address] * (ABNORMAL) BASIC METABOLIC PANEL (09/17/2024 1:42 PM CDT) SODIUM 135(L) 136 - 145 mmol/L 09/17/2024 2:23 PM [facility] POTASSIUM 4.2 3.5 - 5.1 mmol/L 09/17/2024 2:23 PM [facility] CHLORIDE 102 98 - 107 mmol/L 09/17/2024 2:23 PM [facility] CO2,TOTAL 24 22 - 29 mmol/L 09/17/2024 2:23 PM [facility] ANION GAP 9 5 - 18 09/17/2024 2:23 PM [facility] GLUCOSE 190(H) 70 - 99 mg/dL 09/17/2024 2:23 PM [facility] CALCIUM 8.9 8.8 - 10.4 mg/dL 09/17/2024 2:23 PM [facility] Comment: Reference ranges for this test were updated on 04/03/2024 to reflect our healthy population more accurately. Reference range changes are not retroactively applied to results, but previous results using the same methodology can be interpreted in the context of the new reference range. BUN 26(H) 8 - 23 mg/dL 09/17/2024 2:23 PM [facility] CREATININE 1.53(H) 0.50 - 0.90 mg/dL 09/17/2024 2:23 PM [facility] BUN/CREAT RATIO 17 10 - 20 2:23 PM [facility] eGFR 35(L) >90 mL/min/1. 73m2 09/17/2024 2:23 PM [facility] Comment:As of 2021, eG FR is [...] us Shikha Palm MD CHEMISTRY Final Result [facility] [address] [place] [address] from Last 3 Months Insurance MEDICARE PART B HB ONLY MEDICARE PART A HB ONLY [employer] MR PB ONLY [employer] HB Advance [...] 4:47 PM 10/03/2013 2:10 AM Care Teams Upholsterer Apprentice Relationship Specialty Start Date End Date Jenny Vaca MD [address] [place] [address] PCP - General 04/29/09
--- OUTSIDE RECORDS SUMMARY | 2024-09-22 13:15 | XMS_ITS | Data Portability ---
Author Organization [place] [facility], [employer] Address [address] [facility] [place] [address] Assessment Encounter Date Assessment Date Assessment LastModified [...] Time History of thromboem bolism of vein 535600262 Active 2013 History of DVT (deep vein thrombosis ); Original Code: V12.51 Matt ginal Codesystem : ICD-9-CM C lassificat ion: Medical Co nfirmation Status: Confirmed Not Available [facility] 3 09:04:46 Essential hypertens ion 20795683 Active 2013 HTN (Hypertens ion); Original Code: 401.9 Orig inal Codesystem : ICD-9-CM C lassificat ion: Medical Co nfirmation Status: Confirmed Not Available [facility] 3 09:04:46 Glaucoma 04781274 Active 2012 Glaucoma; Original Code: 365.9 Orig inal Codesystem : ICD-9-CM C lassificat ion: Medical Co nfirmation Status: Confirmed Not Available [facility] 3 09:04:47 Osteoarth ritis 454912219 Active 2013 Osteoarthr itis; Original Code: 715.90 Matt ginal [employer]odesystem : ICD-9-CM C lassificat ion: Medical Co nfirmation Status: Confirmed Not Available [facility] 3 09:04:47 Disorder of nervous system due to type 2 diabetes mellitus 749165494 Active 2013 Diabetes Mellitus with Neuropathy ; Original Code: 250.60 Matt ginal [employer]odesystem : ICD-9-CM C lassificat ion: Medical Co nfirmation Status: Confirmed Last vist: 09/19/23 [facility] Lio Galvez[facility] 4 11:55:06 Onychomyc osis due to dermatoph yte 913362642 Active 2013 Onychomyco sis of toenail; Original Code: 110.1 Orig inal Codesystem : ICD-9-CM C lassificat ion: Medical Co nfirmation Status: Confirmed Not Available [facility] 3 09:04:47 Tobacco dependenc e syndrome 15157378 Active 2013 Tobacco user; Original Code: 305.1 [...] NAIL/Callu sDEBRIDEME NT completed Kilo [facility] 09/29/2023 12:52:54 [...] Updated DateTime 09/29/2023 167.64 cm 22.4 kg/m2 39336.34 g Eleanor Mccoy [place] [facility] 09/29/2023 [...] SNOMED-CT Code Diagnosis ICD10 Code Diagnosis Note 97413 Andrews Crawford DPM [place] [facility] [address] [facility] [address] [place] [address] 09/29/2023 10:57:14 10/04/2023 10:21:27 Peripheral neuropathy due to type 2 diabetes mellitus 5526525379 107 E11.42 Onychomycosis 613083856 B35.1 Foot callus 941727470 L8 4 Health Concerns Section Related Observation LastModified by Organization Detai ls LastModified Time None Recorded Concern Status LastModified by Organization Details LastModified Time None Recorded Advance Directives Directive None Recorded Payers Encounter Date Sequence Insurance Name Policy Number Policy Sanchez Covered Member ID Sanchez Member ID Guarantor Name 09/29/2023 1 [employer] Iva Goyal [id number] Iva Goyal 09/29/2023 2 MEDICARE B-[place]: [employer] [facility] Iva Goyal [id number] Iva Goyal Notes Date Note Type Note [...] leg and foot. Andrews Crawford DPM [address] [place], [address], [place] - [facility] 09/30/2023 11:03:05 OBGyn Episode No OBEpisode recorded.
--- NOTE | 2024-09-22 13:30 | ED.GENADULT ---
HPI - General Adult General Date Seen: 09/22/24 Chief complaint: Hypotension Stated complaint: dehydrated Time Seen by Provider: 09/22/24 13:17 History of Present Illness HPI narrative: 79 yo F with history of metastatic breast cancer. has had breast cancer for the past 7 years, had been on chemo but it sounds like her she is now feeling chemotherapy. She has known tumors in her lungs, brain. She follows with Oncology through the [facility] and is still is on outpatient chemotherapy but has been told that her cancer is no responding. There are plans for her to meet with the oncologist at [facility] next week and potentially start immunotherapy coming up in the future. No specific date to start that new treatment. 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 Through the course of her chemotherapy she has had trouble with anemia. She says her baseline hemoglobin is probably around 9 or 10. She has had about 2 or 3 previous blood transfusions for symptomatic anemia during her past few years of chemotherapy. I saw her here in the ER last week for symptomatic anemia and we transfused her 1 unit packed red cells. She was feeling better and she was discharged home after that visit. She also has a history of AFib and is on metoprolol and Xarelto for that. She had a fall a week or 2 ago and had workup here in [place] then another workup at the ER in [place] with CT scans of her chest/abdomen pelvis that were negative. I saw her here in this ER 4 days ago for dizziness and lightheadedness related to anemia. Her baseline hemoglobin is around 9 but her hemoglobin was down to 7.8. She was transfused 1 unit of packed red cells the other day in the ER and felt better so we discharged home, as per her wishes. She has had trouble related to her cancer for the past several weeks. Most recent chemo was about 3 weeks or so ago. She says she always gets a lot of GI upset when she is on chemo so historically needs to go to the outpatient infusion center to get IV fluids. She has had very poor appetite this week. She says she is trying to drink water. She tries to avoid Pepsi because she has been told that Pepsi makes her more dehydrated. She says she is just not very hungry. She does not eat hardly any solid food. She does drinks some protein drinks. She says she probably had 2 or maybe 3 12 oz bottles of water yesterday. She is not nauseous. She is not having any abdominal pain. She just is not thirsty. She notes that she still has trouble with constipation. She has not had any black or bloody stools. She is not feverish. No cough. No chest pain. No trouble breathing. When we discussed her dizziness and low blood pressure and my concerns that she could be hypotensive from bleeding or anemia, hypotensive from shock or sepsis she is generally dismissive. She says that she always gets dehydrated from poor oral intake couple of weeks after chemo and that she has had this pattern ongoing for several years. She really just wants to get fluids and does not want any other workup. She does still have some bruising on her right inner thigh from her fall that occurred a week or 2 ago. It is slowly getting better. It sounds like she was having a lot of itching in her mid back (lower T, upper L-spine area), this been bothersome for the past few years. It is thought to be related to her cancer so her doctors put her on gabapentin a few weeks ago but that caused dizziness and weakness. She was on it for a couple of days and actually ended up falling. Subsequently the gabapentin was stopped. She is having more itching in her back lately and is very bothered by it today. There is no rash. She is feeling dizzy and dehydrated today so came here to the ER to get IV fluids. She says she was at the outpatient infusion center in [place] 2 days ago on and got a L fluids at that time. Apparently her hemoglobin is rechecked and she believes it was around 9.6. Hemoglobin here in the ER 4 days ago was 8.2, prior to receiving a unit packed red cells. Related Data Home Medications ?Medication ?Instructions ?Recorded ?Confirmed amlodipine 5 mg tablet 5 mg PO DAILY 09/13/24 09/13/24 aspirin 81 mg capsule 81 mg PO DAILY 09/13/24 09/13/24 cholecalciferol (vitamin D3) 25 25 mcg PO DAILY 09/13/24 09/13/24 mcg (1,000 unit) capsule dapagliflozin propanediol 5 mg 5 mg PO DAILY 09/13/24 09/13/24 tablet (Farxiga) gabapentin 300 mg capsule 300 mg PO DAILY 09/13/24 09/13/24 hydrocodone 5 mg-acetaminophen 325 1 tab PO QID PRN 09/13/24 09/13/24 mg tablet insulin lispro 100 unit/mL 1 sliding scale dose continuous 09/13/24 09/13/24 subcutaneous solution subcutaneous infusion Q24H latanoprost 0.005 % eye drops 1 drp ophthalmic (eye) QPM 09/13/24 09/13/24 metoprolol tartrate 25 mg tablet 25 mg PO BID 09/13/24 09/13/24 omeprazole 20 mg capsule,delayed 20 mg PO DAILY 09/13/24 09/13/24 release perfluorohexyloctane (PF) 100 % 1 drp ophthalmic (eye) QID 09/13/24 09/13/24 eye drops (Miebo (PF)) pravastatin 20 mg tablet 20 mg PO DAILY 09/13/24 09/13/24 rivaroxaban 20 mg tablet (Xarelto) 20 mg PO QPM 09/13/24 09/13/24 tiotropium bromide 2.5 2 inh inhalation Q24H 09/13/24 09/13/24 mcg/actuation mist for inhalation (Spiriva Respimat) Previous Rx's ?Medication ?Instructions ?Recorded hydroxyzine HCl 25 mg tablet 25 mg PO TID PRN #10 tabs 09/22/24 Allergies Allergy/AdvReac Type Severity Reaction Status Date / Time atenolol Allergy Verified 09/18/24 11:15 lidocaine Allergy Verified 09/18/24 11:15 betablockers Allergy Uncoded 09/13/24 11:40 PFSH PFSH Social History Smoking Status: Current every day smoker Exam Narrative: Exam Narrative: Constitutional: Appears well-developed but looks chronically ill and frail. She is alert and oriented and feisty. HENT: Head: Atraumatic. Nose: Nose normal. Mouth/Throat: Oral mucosa is clear but dry. Not desiccated a cracked.. no trismus. Pharynx normal. Tonsils symmetric. No tonsillar enlargement, erythema, or exudate. Eyes: Conjunctivae normal. EOM normal. Pupils equal, round, and reactive to light. No scleral icterus. Neck: Normal range of motion. Neck supple. No tracheal deviation present. No JVD Cardiovascular: Normal rate, regular rhythm. No gallop. No friction rub. No murmur heard. Symmetric radial artery pulses . Port in place in left upper chest. Pulmonary/Chest: Effort normal. No stridor. No respiratory distress. No wheezes. No rales. No rhonchi . No tenderness. Abdominal: Soft. Bowel sounds normal. No distension. No mass. No tenderness. No rebound. No guarding. Musculoskeletal: RUE: Normal range of motion. No tenderness. No deformity LUE: Normal range of motion. No tenderness. No deformity RLE: She has purplish/yellowish ecchymosis on her right mid mid inner thigh. No bruising extending above the groin skin crease. No bruising on the lateral hip or pelvis. Normal range of motion. No edema. No tenderness. No deformity LLE: Normal range of motion. No edema. No tenderness. No deformity Neurological: Alert and oriented to person, place, and time. Normal strength. CN II-VII intact. No sensory deficit. GCS eye subscore is 4. GCS verbal subscore is 5. GCS motor subscore is 6. Normal coordination Skin: No rash on her back. No sign of hives or shingles. Skin is warm and dry. No rash noted. No pallor. Normal capillary refill. Psychiatric: Normal mood. She is somewhat feisty and seems grumpy about even having to come to the ER today. She is upset her medical providers because, ?they always give me just 1 bag of fluids. I feel like any a bag and have her maybe 2 bags but they always just give me 1. She says that after reading more about the side effects of immunotherapy and what would be required of her to go through that treatment (having to stay in the hospital at [place] for a few days after each of her initial infusions) she has chosen not to pursue that therapy. She says it is possible that her cancer is already too far gone for her to benefit. She is going through some more workup with her oncologist in [place] and may start another chemo med in the next couple of weeks. Const: Vital Signs, click to edit/add: Vital Signs - 24 hr 09/22/24 13:17 09/22/24 13:51 09/22/24 14:00 Temperature 97.3 F L Pulse Rate 73 73 Pulse Rate [Pulse Oximeter] 77 Respiratory Rate 20 Blood Pressure Blood Pressure [Ri ght Upper Arm] 75/46 L Pulse Oximetry 98 99 98 Oxygen Delivery Me thod Room Air 09/22/24 14:15 09/22/24 14:30 09/22/24 14:31 Temperature Pulse Rate 72 72 73 Pulse Rate [Pulse Oximeter] Respiratory Rate Blood Pressure 141/71 H Blood Pressure [Ri ght Upper Arm] Pulse Oximetry 98 97 99 Oxygen Delivery Me thod 09/22/24 14:32 Temperature Pulse Rate 74 Pulse Rate [Pulse Oximeter] Respiratory Rate Blood Pressure 133/71 Blood Pressure [Ri ght Upper Arm] Pulse Oximetry 98 Oxygen Delivery Me thod Course Vital Signs Vital signs: Initial Vital Signs Temperature 97.3 F L 09/22/24 13:17 Temperature Source Temporal Artery Scan 09/22/24 13:17 Pulse Rate 77 09/22/24 13:17 Pulse Rhythm Regular 09/22/24 13:17 Respiratory Rate 20 09/22/24 13:17 Blood Pressure 75/46 L 09/22/24 13:17 Blood Pressure Mean 55 L 09/22/24 13:17 Blood Pressure Position Sitting 09/22/24 13:17 Pulse Oximetry 98 09/22/24 13:17 Oxygen Delivery Method Room Air 09/22/24 13:17 Vital Signs Temperature 97.3 F L 09/22/24 13:17 Pulse Rate 77 09/22/24 13:17 Respiratory Rate 20 09/22/24 13:17 Blood Pressure 75/46 L 09/22/24 13:17 Pulse Oximetry 98 09/22/24 13:17 Oxygen Delivery Method Room Air 09/22/24 13:17 Temperature 97.3 F L 09/22/24 13:17 Pulse Rate 74 09/22/24 14:32 Respiratory Rate 20 09/22/24 13:17 Blood Pressure 133/71 09/22/24 14:32 Pulse Oximetry 98 09/22/24 14:32 Oxygen Delivery Method Room Air 09/22/24 13:17 Medications Administered Medications: Discontinued Medications Generic Name Dose Route Start Last Admin Trade Name Freq PRN Reason Stop Dose Admin Diphenhydramine HCl 12.5 mg 09/22/24 13:59 09/22/24 14:26 Diphenhydramine 50 Mg/Ml Inj IVP 09/22/24 14:00 12.5 mg ONCE ONE Administration Heparin Sodium (Porcine) 500 unit 09/22/24 16:50 09/22/24 16:56 Heparin 500 Unit/5 Ml Syringe IVF 09/22/24 16:51 500 unit ONCE ONE Administration Hydroxyzine Pamoate 25 mg 09/22/24 15:59 09/22/24 16:06 Hydroxyzine Pamoate 25 Mg Capsule PO 09/22/24 16:00 25 mg ONCE ONE Administration Sodium Chloride 1,000 mls @ 1,000 mls/hr 09/22/24 14:00 09/22/24 16:11 0.9 % Sodium Chloride 1000 Ml IV 09/22/24 14:59 Infused .Q1H OSVALDO Infusion Lactated Ringer's 1,000 mls @ 1,000 mls/hr 09/22/24 13:58 09/22/24 17:02 Lactated Ringers 1000 Ml IV 09/22/24 14:57 500 mls/hr .Q1H ONE Infusion Medical Decision Making [facility] Narrative Medical decision making narrative: This is very pleasant 79-year-old medically complex patient presenting to the ER today with concern for dizziness and lightheadedness at home and suspicion that she is probably dehydrated. She presents with dizziness and weakness at home and was hypotensive at her triage blood pressure. Subsequent blood pressure medicine minutes here in the ER, even before receiving IV fluids were normotensive. Prior to discharge her blood pressure was actually up the hypertensive range of 188/87. Differential for her hypotension is quite broad. Consider recurrent anemia or other active bleeding. Hemoglobin today is actually reassuring at 9.2. Consider possible infection or sepsis. Urinalysis is negative. No other infection symptoms. No fever, no white count. No clear sign of infection. She is not having any chest pain or shortness of breath or hypoxia to suggest cardiogenic shock. No signs of allergic reaction or distributive shock. No chest pain or hypoxia to suggest obstructive shock for PE. I had a long discussion with the patient and her about our concerns with her low blood pressure. However she is insistent that she only wants IV fluids. She is begrudgingly letting me at least check labs to look at her hemoglobin and blood counts. In terms of the patient's dizziness and hypotension she strongly suspect she is dehydrated. She reports a longstanding history of GI intolerance of her chemo. Apparently the chemo causes periods of time during which she gets inability to tolerate oral intake. She says she is currently experiencing one of those. For the past few days and has been to her doctors in [place] ?every day this week?. She most recently received IV outpatient fluids 2 days ago on . She is not really vomiting and is not having diarrhea but just isn't drinking very much. She feels tremendously better after 1 L of IV crystalloid. However she also complains that, ?they never give me more the 1 bag of fluids, and I wheeze feel dizzy and dehydrated the next day. Why do not they give me 2 bags!? We administered initial 500 mL of LR in addition to her L of saline. Total volume of crystalloid infused 1500 mL. She is feeling much better and blood pressures have been normal throughout the rest of her stay. She is feeling better after crystalloid. She is eager to discharge home with her and is requesting discharge. Incidentally she is also concerned that she has chronic pruritus affecting her mid back. There is no rash there. She says all the meds her doctors have tried do not work. It sounds like these include Benadryl, Claritin, Zyrtec, gabapentin. We did try IV Benadryl here in the ER without effect. She did have some improvement with hydroxyzine. Therefore I will give her a short prescription that she can try some p.r.n. hydroxyzine at home. If it works she can follow up with her primary doctors to get a refill. I do not think this itching reflects an acute allergic reaction. Lab Data Labs: Lab Results 09/22/24 09/22/24 Range/Units 14:17 16:00 WBC 8.14 (4.50-11.00) K/uL RBC 3.10 L (4.00-5.20) m/uL Hgb 9.2 L (12.0-16.0) gm/dL Hct 29.1 L (33.0-51.0) % MCV 94 (80-100) fL MCH 30 (26-34) pg MCHC 32 (32-36) gm/dL RDW Coeff of Shey 15.3 (11.5-15.5) % Plt Count 383 (140-440) K/uL Neut % (Auto) 70.5 (42.0-72.0) % Lymph % (Auto) 14.7 L (20-44) % [place] % (Auto) 12.3 H (0.0-11.0) % Eos % (Auto) 1.1 (0.0-7.0) % Baso % (Auto) 0.4 (0.0-3.0) % Neut # (Auto) 5.74 (1.7-7.0) K/uL Lymph # (Auto) 1.20 (0.90-2.90) K/uL [place] # (Auto) 1.00 H (0.00-0.90) K/UL Eos # (Auto) 0.09 (0.00-0.50) K/uL Baso # (Auto) 0.03 (0.00-0.30) K/uL Abs Immat Gran (auto) 0.08 (0.00-0.30) K/uL Imm/Tot Granulo (auto) 1.0 % Sodium 133 L (135-149) mmol/L Potassium 3.9 (3.6-5.1) mmol/L Chloride 103 (96-114) mmol/L Carbon Dioxide 21 (20-32) mmol/L Anion Gap 9 (7-15) mEq/L BUN 38 H (7-30) mg/dL Creatinine 1.4 (0.5-1.5) mg/dL Estimated GFR 39 ml/min Glucose 72 (60-115) mg/dL Lactate 1.6 (0.5-1.9) mmol/L Calcium 8.9 (8.4-10.6) mg/dL Total Bilirubin 0.7 (0.1-1.5) mg/dL AST 26 (12-35) U/L ALT 14 (4-35) U/L Alkaline Phosphatase 80 (40-150) U/L Total Protein 5.8 L (6.0-8.3) g/dL Albumin 3.3 (3.3-5.0) g/dL Urine Color Yellow (Yellow) Urine Appearance Slightly Cloudy A (Clear) Urine pH 5.5 (5.0-8.5) Ur Specific [place] 1.010 (1.000-1.030) Urine Protein Negative (Negative) Urine Glucose (UA) 2+ A (Negative) Urine Ketones Negative (Negative) Urine Blood Negative (Negative) Urine Nitrite Negative (Negative) Urine Bilirubin Negative (Negative) Urine Urobilinogen 0.2 (0.2-1.0) Ur Leukocyte Esterase Negative (Negative) Urine RBC 0-2 (0-2) Urine WBC 2-5 (0-5) Ur Squamous Epith Cells Moderate A (None-Few) Urine Bacteria Few A (None) Blood Type O Positive Antibody Screen NEGATIVE Discharge Plan Discharge Clinical Impression: Acute dehydration, Acute hypotension, Chronic pruritus Patient Disposition: Home, Self-Care Condition: Stable Instructions: Dehydration (ED), Itchy Skin (ED) Additional Instructions: As we discussed, come back to the ER right away if you have any concerns especially more dehydration, dizziness, weakness, vomiting blood, bloody or black stool, or any concerns. Please follow-up with your regular doctor next week for recheck. You can temporarily tried hydroxyzine to help the itching in your back. Prescriptions: New hydroxyzine HCl 25 mg tablet 25 mg PO TID PRNQty: 10 0RF No Action metoprolol tartrate 25 mg tablet 25 mg PO BID pravastatin 20 mg tablet 20 mg PO DAILY Xarelto 20 mg tablet 20 mg PO QPM aspirin 81 mg capsule 81 mg PO DAILY hydrocodone-acetaminophen 5-325 mg tablet 1 tab PO QID PRN dapagliflozin propanediol [Farxiga] 5 mg tablet 5 mg PO DAILY amlodipine 5 mg tablet 5 mg PO DAILY gabapentin 300 mg capsule 300 mg PO DAILY insulin lispro 100 unit/mL solution 1 sliding scale dose continuous subcutaneous infusion Q24H Rx Instructions: INSULIN PUMP - FOLLOW SLIDING SCALE UP TO 75 UNITS IN 24 HOURS VIA INSULIN PUMP omeprazole 20 mg capsule,delayed release(DR/EC) 20 mg PO DAILY cholecalciferol (vitamin D3) 25 mcg (1,000 unit) capsule 25 mcg PO DAILY Spiriva Respimat 2.5 mcg/actuation mist 2 inh inhalation Q24H latanoprost 0.005 % drops 1 drp ophthalmic (eye) QPM Miebo (PF) 100 % drops 1 drp ophthalmic (eye) QID Follow Up/Referrals: Khrai Richards MD [Staff Physician] - Stand Alone Forms: [facility] Info Instructions
[2024-09-22] MEDS: 0.9 % SODIUM CHLORIDE 1000 ml 1,000 ML IV (14:24)
[2024-09-22] MEDS: diphenhydrAMINE 50 MG/ML inj 12.5 MG IVP (14:26)
[2024-09-22 14:27] LABS: Lactate* 1.6 mmol/L (0.5-1.9)
[2024-09-22 14:29] LABS: Basophils Absolute Auto 0.03 K/uL (0.00-0.30); Basophils Percent Auto 0.4 % (0.0-3.0); Eosinophils Absolute Auto 0.09 K/uL (0.00-0.50); Eosinophils Percent Auto 1.1 % (0.0-7.0); Hematocrit 29.1 % (33.0-51.0); Hemoglobin* 9.2 gm/dL (12.0-16.0); Immature Granulocytes Abs Auto 0.08 K/uL (0.00-0.30); Lymphocytes Percent Auto 14.7 % (20-44); Mean Corpuscular HGB Conc 32 gm/dL (32-36); Mean Corpuscular Hemoglobin 30 pg (26-34); Mean Corpuscular Volume 94 fL (80-100); Monocytes Percent Auto 12.3 % (0.0-11.0); Neutrophils Absolute Auto 5.74 K/uL (1.7-7.0); Neutrophils Percent Auto 70.5 % (42.0-72.0); Platelet Count* 383 K/uL (140-440); RDW Coefficient of Variation % 15.3 % (11.5-15.5); White Blood Count* 8.14 K/uL (4.50-11.00)
--- OUTSIDE RECORDS SUMMARY | 2024-09-22 14:33 | XMS_ITS | Clinical Summary ---
Author Organization [facility] Address [address] [place] [id number] Care Team Providers Care Quality Assurance Auditor Name Role Phone Jenny Vaca MD Primary [...] afterwards 600 mL 5 4 2:47 PM CYTOGENETICS TECHNOLOGIST 03/04/20 Active Active Problems Problem Noted Date Diagnosed Date Primary open angle glaucoma, right eye 4 Posterior capsule opacification 02/08/2012 Cataract 08/24/2011 Overview (08/24/2011): Right Eye Type II or unspecified type diabetes mellitus without mention of complication, not stated as uncontrolled 01/14/2004 Encounters Date Type Department Care Team Description 09/18/2024 9:33 AM CDT - 09/18/2024 11:59 PM CDT Hospital Encounter [address] [address] Encounter for blood transfusion, without reported diagnosis 09/18/2024 Orders Only [address] [address] Marlo Diallo [facility] 09/17/2024 12:59 PM CDT - 09/17/2024 4:31 PM CDT Emergency [address] [address] Shikha Palm MD Weakness (Primary Dx); Repeated [...] on file Legal Sex Female 5:23 AM CYTOGENETICS TECHNOLOGIST Gender Identity Not on file Sexual Orientation [...] 13, 02/15/2011 Medical Devices Implanted Type Area Leather Polisher Device Identifier Shelf Expiration Date Model / Serial / Lot Lens Iol Zcb00 19.0 - [id number] Implanted:Qty: 1 on 08/25/2011 at [facility] Right: Eye 12/28/2013 ZCB00# / [id number] / Port 8fr Powerport Clearvue Slim Intermediate Silcn - [id number] Implanted:Qty: 1 on 03/04/2023 by Kaylynn Espinoza MD at [facility] [employer] 10/27/2024 [id number] / / [id number] Procedures Procedure Name Priority Date/Time Associated Diagnosis [...] ONE TIME (09/17/2024 3:42 PM CDT) Pathologist [facility] TROPONIN T HS 41(H) 6-10 ng/L ng/L 09/17/2024 4:07 PM CDT [facility] Blood BLOOD SPECIMEN / Unknown Venipuncture / Unknown 09/17/2024 3:42 PM CDT 09/17/2024 3:47 PM CDT us Shikha Palm MD CHEMISTRY Final Result [facility] [address] [address] * (ABNORMAL) URINALYSIS MICROSCOPIC (09/17/2024 3:27 PM CDT) Pathologist [facility] RBC 0-2 0-2, None Seen /HPF 09/17/2024 3:36 PM CDT [facility] WBC 3-5 0-2, 3-5, None Seen /HPF 09/17/2024 3:36 PM CDT [facility] BACTERIA Few None Seen, Rare, Few Bacteria/H PF 09/17/2024 3:36 PM [facility] EPITHELIAL CELLS Moderate(A ) None Seen, Few Epi/HPF 09/17/2024 3:36 PM [facility] Urine URINE SPECIMEN / Unknown Non-Blood / Unknown 09/17/2024 3:27 PM CDT 09/17/2024 3:30 PM CDT us Shikha Palm MD URINE Final Result [facility] [address] [address] * (ABNORMAL) UA W/ SEDIMENT EXAM REFLEXED PER CRITERIA (09/17/2024 3:27 PM CDT) COLOR Yellow Yellow Color 09/17/2024 3:35 PM [facility] CLARITY Clear Clear Clarity 09/17/2024 3:35 PM [facility] SPECIFIC GRAVITY,URINE 1.010 1.010, 1.015, 1.020, 1.025 09/17/2024 3:35 PM [facility] PH,URINE 6.0 6.0, 7.0, 8.0, 5.5, 6.5, 7.5, 8.5 09/17/2024 3:35 PM [facility] UROBILINOGEN, QUALITATIVE Normal Normal EU/dl 09/17/2024 3:35 PM [facility] PROTEIN, URINE Negative Negative mg/dL 09/17/2024 3:35 PM [facility] GLUCOSE, URINE >=1000(A) Negative mg/dL 09/17/2024 3:35 PM [facility] KETONES,URINE Negative Negative mg/dL 09/17/2024 3:35 PM [facility] BILIRUBIN,URI NE Negative Negative 09/17/2024 3:35 PM [facility] OCCULT BLOOD,URINE Negative Negative 09/17/2024 3:35 PM [facility] NITRITE Negative Negative 09/17/2024 3:35 PM [facility] LEUKOCYTE ESTERASE Negative Negative 09/17/2024 3:35 PM CDT [facility] Urine URINE SPECIMEN / Unknown Non-Blood / Unknown 09/17/2024 3:27 PM CDT 09/17/2024 3:30 PM CDT Result Herlinda Palm MD URINE Final Result [facility] [address] [address] * CT ABDOMEN PELVIS WO (09/17/2024 2:40 PM CDT) Anatomical Region Laterality Modality Abdomen, Pelvis, AORTA, LIVER, SPLEEN Computed Tomography Result [facility] us Shikha Palm MD CT Final Result * CT 2D RECONSTRUCTION LUMBAR SPINE (09/17/2024 2:39 PM CDT) Anatomical Region Laterality Modality PATELLA, Spine Computed Tomogra phy Result [facility] us Shikha Palm MD CT Final Result [...] NOW QTc 477 ms BEYOND NOW P [place] 67 degrees BEYOND NOW R [place] 30 degrees BEYOND NOW T [place] 57 degrees BEYOND NOW 09/17/2024 1:47 PM CDT 09/19/2024 8:24 PM CDT us Shikha Palm MD EKG ORD Final Result BEYOND NOW [place], [place] * (ABNORMAL) TROPONIN T (HS) ACUTE W/2HR REFLEX (09/17/2024 1:42 PM CDT) TROPONIN T HS 41(H) 6-10 ng/L ng/L 09/17/2024 2:23 PM CDT [facility] Blood BLOOD SPECIMEN / Unknown Line/Port / Unknown 09/17/2024 1:42 PM CDT 09/17/2024 1:52 PM CDT Narrative [facility] - 09/17/2024 2:23 PM CDT hs-cTnT (Elecsys [...] population. Shikha Palm MD CHEMISTRY Final Result [facility] [address] [address] * (ABNORMAL) CBC WITH AUTO DIFFERENTIAL (09/17/2024 1:42 PM CDT) WHITE BLOOD COUNT 8.5 4.5 - 11.0 thou/cu mm 09/17/2024 1:57 PM [facility] RED BLOOD COUNT 2.61(L) 4.00 - 5.20 mil/cu mm 09/17/2024 1:57 PM [facility] HEMOGLOBIN 7.8(L) 12.0 - 16.0 g/dL 09/17/2024 1:57 PM [facility] HEMATOCRIT 24.3(L) 33.0 - 51.0 % 09/17/2024 1:57 PM [facility] MCV 93 80 - 100 fL 09/17/2024 1:57 PM [facility] MCH 29.9 26.0 - 34.0 pg 09/17/2024 1:57 PM [facility] MCHC 32.1 32.0 - 36.0 g/dL 09/17/2024 1:57 PM [facility] RDW 15.4 11.5 - 15.5 % 09/17/2024 1:57 PM [facility] PLATELET COUNT 317 140 - 440 thou/cu mm 09/17/2024 1:57 PM [facility] MPV 9.1 6.5 - 11.0 fL 09/17/2024 1:57 PM [facility] % NEUT 72.2 % 09/17/2024 1:57 PM [facility] % LYMPH 14.7 % 09/17/2024 1:57 PM [facility] % MONO 12.3 % 09/17/2024 1:57 PM [facility] % EOS 0.6 % 09/17/2024 1:57 PM [facility] % BASO 0.2 % 09/17/2024 1:57 PM [facility] ABSOLUTE NEUTROPHILS 6.1 1.7 - 7.0 thou/cu mm 09/17/2024 1:57 PM [facility] ABSOLUTE LYMPHOCYTES 1.3 0.9 - 2.9 thou/cu mm 09/17/2024 1:57 PM [facility] ABSOLUTE MONOCYTES 1.0(H) <0.9 thou/cu mm 09/17/2024 1:57 PM [facility] ABSOLUTE EOSINOPHILS 0.1 <0.5 thou/cu mm 09/17/2024 1:57 PM [facility] ABSOLUTE BASOPHILS 0.0 <0.3 thou/cu mm 09/17/2024 1:57 PM [facility] Blood BLOOD SPECIMEN / Unknown Line/Port / Unknown 09/17/2024 1:42 PM CDT 09/17/2024 1:52 PM CDT us Shikha Palm MD HEMATOLOGY Final Result [facility] [address] [address] * TSH WITH REFLEX (09/17/2024 1:42 PM CDT) TSH 2.31 0.27 - 4.20 uIU/mL 09/17/2024 2:23 PM [facility] Blood BLOOD SPECIMEN / Unknown Line/Port / Unknown 09/17/2024 1:42 PM CDT 09/17/2024 1:52 PM CDT [facility] - 09/17/2024 2:23 PM CDT In Adults, TSH values between 5.00 and 10.00 uIU/ml do not necessarily indicate the presence of Hypothyroidism. Correlation with clinical findings such as presence of goiter and/or Thyroperoxidase (TPO) Antibody may be helpful. For more information please refer to SONAL 2004; 291: 228-238. us Shikha Palm MD CHEMISTRY Final Result Performing Organization Address [facility] Co de Phone Number [address] [phone] * PHOSPHORUS (09/17/2024 1:42 PM CDT) PHOSPHORUS 3.6 2.5 - 4.5 mg/dL 09/17/2024 2:23 PM CDT [facility] Blood BLOOD SPECIMEN / Unknown Line/Port / Unknown 09/17/2024 1:42 PM CDT 09/17/2024 1:52 PM CDT us Shikha Palm MD CHEMISTRY Final Result Performing Organization Address [facility] de Phone Number [address] [address] * MAGNESIUM (09/17/2024 1:42 PM CDT) MAGNESIUM 1.8 1.6 - 2.4 mg/dL 09/17/2024 2:23 PM CDT [facility] Blood BLOOD SPECIMEN / Unknown Line/Port / Unknown 09/17/2024 1:42 PM CDT 09/17/2024 1:52 PM CDT Shikha Palm MD CHEMISTRY Final Result Performing Organization Address [facility] Co de Phone Number [address] [phone] * (ABNORMAL) BASIC METABOLIC PANEL (09/17/2024 1:42 PM CDT) SODIUM 135(L) 136 - 145 mmol/L 09/17/2024 2:23 PM [facility] POTASSIUM 4.2 3.5 - 5.1 mmol/L 09/17/2024 2:23 PM [facility] CHLORIDE 102 98 - 107 mmol/L 09/17/2024 2:23 PM [facility] CO2,TOTAL 24 22 - 29 mmol/L 09/17/2024 2:23 PM [facility] ANION GAP 9 5 - 18 09/17/2024 2:23 PM [facility] GLUCOSE 190(H) 70 - 99 mg/dL 09/17/2024 2:23 PM [facility] CALCIUM 8.9 8.8 - 10.4 mg/dL 09/17/2024 2:23 PM [facility] Comment: Reference ranges for this test were updated on 04/03/2024 to reflect our healthy population more accurately. Reference range changes are not retroactively applied to results, but previous results using the same methodology can be interpreted in the context of the new reference range. BUN 26(H) 8 - 23 mg/dL 09/17/2024 2:23 PM [facility] CREATININE 1.53(H) 0.50 - 0.90 mg/dL 09/17/2024 2:23 PM [facility] BUN/CREAT RATIO 17 10 - 20 2:23 PM [facility] eGFR 35(L) >90 mL/min/1. 73m2 09/17/2024 2:23 PM [facility] Comment:As of 2021, eG FR is [...] us Shikha Palm MD CHEMISTRY Final Result [facility] [address] [place] [address] from Last 3 Months Insurance MEDICARE PART [...] 4:47 PM 10/03/2013 2:10 AM Care Teams Quality Assurance Auditor Relationship Specialty Start Date End Date Jenny Vaca MD [address] [place] [address] PCP - General 04/29/09
[2024-09-22 14:36] LABS: Slide Review Reflex No
[2024-09-22 14:50] LABS: Albumin* 3.3 g/dL (3.3-5.0); Chloride* 103 mmol/L (96-114); Sodium* 133 mmol/L (135-149)
[2024-09-22 14:51] LABS: Potassium* 3.9 mmol/L (3.6-5.1)
[2024-09-22 14:53] LABS: Alanine Aminotransferase* 14 U/L (4-35); Alkaline Phosphatase* 80 U/L (40-150); Anion Gap 9 mEq/L (7-15); Aspartate Amino Transferase* 26 U/L (12-35); Bilirubin Total* 0.7 mg/dL (0.1-1.5); Blood Urea Nitrogen* 38 mg/dL (7-30); Carbon Dioxide* 21 mmol/L (20-32); Creatinine* 1.4 mg/dL (0.5-1.5); Estimated Glomerular Filt Rate 39 ml/min; Total Protein* 5.8 g/dL (6.0-8.3)
[2024-09-22 14:54] LABS: Calcium* 8.9 mg/dL (8.4-10.6); Glucose* 72 mg/dL (60-115)
[2024-09-22 16:06] LABS: Appearance Urine Slightly Cloudy (Clear); Bilirubin Urine Negative (Negative); Blood Urine Negative (Negative); Color Urine Yellow (Yellow); Glucose Urine 2+ (Negative); Ketones Urine Negative (Negative); Leukocyte Esterase Urine Negative (Negative); Nitrite Urine Negative (Negative); Protein Urine Negative (Negative); Urobilinogen Urine 0.2 (0.2-1.0); pH Urine 5.5 (5.0-8.5)
[2024-09-22] MEDS: hydrOXYzine pamoate 25 MG CAPSULE PO (16:06)
[2024-09-22] MEDS: LACTATED RINGERS 1000 ML 1,000 ML IV (16:06)
[2024-09-22 16:23] LABS: Bacteria Urine Few; RBC Urine 0-2 (0-2); Squamous Epithelial Cell Urine Moderate (None-Few)
[2024-09-22] MEDS: HEPARIN 500 UNIT/5 ML SYRINGE IVF (16:56)
== END 2024-09-22 17:23 | disposition home or self-care (01) ==
PROVIDERS: Emergency Provider Emergency Medicine; PCP Internal Medicine
DX: L29.89 Other pruritus (principal); I95.9 Hypotension, unspecified; E86.0 Dehydration
CPT/HCPCS: 36415; 80053; 81001; 83605; 85025; 86850; 86900; 86901; 87040; 87086; 96361; 96374; 96375; 99283; 99284; A9270; J1200; J1642; J7030; J7120

== ENCOUNTER 2024-10-13 21:18 | Emergency (ER) | payer MEDICARE, OTHER, SELFPAY ==
[2024-10-13 21:30] VITALS: BP 117/70; PULSE 120; RESP 20; TEMP 36.6; O2SAT 98; BMI 20.2
[2024-10-13 21:42] LABS: Appearance Urine Slightly Cloudy (Clear); Bilirubin Urine Negative (Negative); Blood Urine Trace-lysed (Negative); Color Urine Yellow (Yellow); Glucose Urine Negative (Negative); Ketones Urine Negative (Negative); Leukocyte Esterase Urine Negative (Negative); Nitrite Urine Positive (Negative); Protein Urine 1+ (Negative); Urobilinogen Urine 0.2 (0.2-1.0); pH Urine 5.5 (5.0-8.5)
--- NOTE | 2024-10-13 21:44 | ED_ITS ---
HPI - Female Genitourinary General Date Seen: 10/13/24 Chief complaint: Urogenital Problems, Female Stated complaint: possible UTI Time Seen by Provider: 10/13/24 21:20 Source: patient Mode of arrival: ambulatory Limitations: no limitations History of Present Illness HPI Narrative: Patient is a 79-year-old female with a history of small-cell lung cancer and most recent chemotherapy being 1 week ago presenting to the emergency department for concerns of a UTI. She states over the past week she has been having intermittent fevers and chills with the highest being 100.4. Most recent fever was 2 or 3 days ago. Heart chemotherapy can cause the symptoms so she thought it is all everything was from flat. She also has been having some diarrhea from chemotherapy. With past couple days she has noticed some dark colored urine and some urinary retention. She states she is urinating frequently because she is not feel like she completely emptying her bladder. Has some mild discomfort with urination. Does note some suprapubic abdominal pain. Denies any other abdominal pain. Did have nausea few days ago that has since resolved. Also states she has not had any fevers or chills today. Denies melena or hematochezia. Denies chest pain, shortness of breath, headache, lightheadedness, dizziness, weakness, numbness. No other concerns noted at this time. Related Data Home Medications ?Medication ?Instructions ?Recorded ?Confirmed amlodipine 5 mg tablet 5 mg PO DAILY 09/13/24 10/13/24 aspirin 81 mg capsule 81 mg PO DAILY 09/13/24 10/13/24 cholecalciferol (vitamin D3) 25 25 mcg PO DAILY 09/13/24 10/13/24 mcg (1,000 unit) capsule dapagliflozin propanediol 5 mg 5 mg PO DAILY 09/13/24 10/13/24 tablet (Farxiga) gabapentin 300 mg capsule 300 mg PO DAILY 09/13/24 10/13/24 hydrocodone 5 mg-acetaminophen 325 1 tab PO QID PRN 09/13/24 10/13/24 mg tablet insulin lispro 100 unit/mL 1 sliding scale dose continuous 09/13/24 10/13/24 subcutaneous solution subcutaneous infusion Q24H latanoprost 0.005 % eye drops 1 drp ophthalmic (eye) QPM 09/13/24 10/13/24 metoprolol tartrate 25 mg tablet 25 mg PO BID 09/13/24 10/13/24 omeprazole 20 mg capsule,delayed 20 mg PO DAILY 09/13/24 10/13/24 release perfluorohexyloctane (PF) 100 % 1 drp ophthalmic (eye) QID 09/13/24 10/13/24 eye drops (Miebo (PF)) pravastatin 20 mg tablet 20 mg PO DAILY 09/13/24 10/13/24 rivaroxaban 20 mg tablet (Xarelto) 20 mg PO QPM 09/13/24 10/13/24 tiotropium bromide 2.5 2 inh inhalation Q24H 09/13/24 09/13/24 mcg/actuation mist for inhalation (Spiriva Respimat) Previous Rx's ?Medication ?Instructions ?Recorded hydroxyzine HCl 25 mg tablet 25 mg PO TID PRN #10 tabs 09/22/24 amoxicillin 875 mg-potassium 1 tab PO BID 7 days #14 tabs 10/13/24 clavulanate 125 mg tablet ciprofloxacin HCl 750 mg tablet 750 mg PO BID 7 days #14 tabs 10/13/24 Allergies Allergy/AdvReac Type Severity Reaction Status Date / Time atenolol Allergy Verified 10/13/24 21:28 lidocaine Allergy Verified 10/13/24 21:28 betablockers Allergy Uncoded 09/13/24 11:40 Review of Systems Status of ROS: Reports: 10 or more systems reviewed and unremarkable except as noted in History and below [facility] Social History Smoking Status: Current every day smoker Exam Narrative: Exam Narrative: Const: Well-nourished, Well-developed, in mild distress Eyes: PERRL, no conjunctival injection, and symmetrical lids HENT: Atraumatic external nose and ears. Moist mucous membranes. Neck: Symmetric, trachea midline, No thyromegaly. CVS: RRR, No murmurs or gallops. Peripheral pulses 2+ and equal in all extremities RESP: Unlabored respiratory effort. Clear to auscultation bilaterally. GI: Suprapubic tenderness, Nondistended, No rebound or guarding. MSK:Extremities w/o deformity, Normal Active ROM Skin: Warm, Dry. No rashes or lesions. Neuro: Normal Muscle tone, No focal neurological deficits. Psych: Awake, Alert, & Oriented x3. Appropriate mood and affect. Const: Vital Signs, click to edit/add: Vital Signs - 24 hr 10/13/24 21:30 Temperature 97.9 F Pulse Rate [Pulse Oximeter] 120 H Respiratory Rate 20 Blood Pressure [Ri ght Upper Arm] 117/70 Pulse Oximetry 98 Oxygen Delivery Me thod Room Air Course Vital Signs Vital signs: Initial Vital Signs Temperature 97.9 F 10/13/24 21:30 Temperature Source Temporal Artery Scan 10/13/24 21:30 Pulse Rate 120 H 10/13/24 21:30 Respiratory Rate 20 10/13/24 21:30 Blood Pressure 117/70 10/13/24 21:30 Blood Pressure Mean 85 10/13/24 21:30 Pulse Oximetry 98 10/13/24 21:30 Oxygen Delivery Method Room Air 10/13/24 21:30 Vital Signs Temperature 97.9 F 10/13/24 21:30 Pulse Rate 120 H 10/13/24 21:30 Respiratory Rate 20 10/13/24 21:30 Blood Pressure 117/70 10/13/24 21:30 Pulse Oximetry 98 10/13/24 21:30 Oxygen Delivery Method Room Air 10/13/24 21:30 Temperature 97.9 F 10/13/24 21:30 Pulse Rate 120 H 10/13/24 21:30 Respiratory Rate 20 10/13/24 21:30 Blood Pressure 117/70 10/13/24 21:30 Pulse Oximetry 98 10/13/24 21:30 Oxygen Delivery Method Room Air 10/13/24 21:30 MDM - Female Genitourinary MDM Narrative Medical decision making narrative: Patient is a 79-year-old female presenting for concerns of UTI. She was tachycardic in triage at 120. Of note she states she has been tachycardic since she was taken off metoprolol switched to low-dose of digoxin. Her provider is aware of this and states they are slowly up in the digoxin. Her heart rate is now 107 she states that is normal for her over the past couple weeks. Appears well on my exam. Only physical exam findings was suprapubic tenderness which is consistent with a UTI. I will check some basic lab work that out to rule out any other abnormalities concerned she is also on chemotherapy and did have a tachycardia. Patient's urinalysis came back positive for nitrates and many bacteria. Her BMP returns no concerning findings. CMP returned showing pancytopenia. I spoke to her about this and she states the chemotherapy she just started on can cause pancytopenia. She is within the time frame that we expect to see the pancytopenia so this is not unexpected. She is neutropenic but states her last fever was several days ago. I do believe she has UTI in either way I will treat her as a neutropenic fever to be on the cautious side. Her hemoglobin is 8.0 which is not too much lower than her baseline. Does not meet criteria for transfusion at this time. Her platelet count is also 15. She has been having a very mild bloody nose over the past day. It is not draining in all but she does produce some blood when she blows her nose. Has not been feeling lightheaded or dizzy. I did speak to her about possible admission for observation to make sure she does not lose too much blood but this time she declines. On my exam does appear to be anterior epistaxis. Considering the relatively mild bleeding this seems reasonable but I do inform her she needs to be very closely monitored. She states she understands. Due to meeting SIRS criteria I did add on a lactate. This was normal. I spoke to her again about staying for observation but again she declined. I did consider doing platelet transfusion but patient does not want to wait for it as it will take several hours to get the platelets. At this time I will discharge the patient by informed her that she needs to be very careful in return if bleeding or any other symptoms worsen. Lab Data Labs: Lab Results 10/13/24 10/13/24 10/13/24 Range/Units 21:35 21:59 23:27 WBC 1.09 L* (4.50-11.00) K/uL RBC 2.65 L (4.00-5.20) m/uL Hgb 8.0 L (12.0-16.0) gm/dL Hct 25.2 L (33.0-51.0) % MCV 95 (80-100) fL MCH 30 (26-34) pg MCHC 32 (32-36) gm/dL RDW Coeff of Shey 16.5 H (11.5-15.5) % Plt Count 15 L* (140-440) K/uL Neut % (Auto) 18.4 L (42.0-72.0) % Lymph % (Auto) 70.6 H (20-44) % [place] % (Auto) 9.2 (0.0-11.0) % Eos % (Auto) 1.8 (0.0-7.0) % Baso % (Auto) 0.0 (0.0-3.0) % Neut # (Auto) 0.20 L (1.7-7.0) K/uL Lymph # (Auto) 0.80 L (0.90-2.90) K/uL [place] # (Auto) 0.10 (0.00-0.90) K/UL Eos # (Auto) 0.00 (0.00-0.50) K/uL Baso # (Auto) 0.00 (0.00-0.30) K/uL Abs Immat Gran (auto) 0.00 (0.00-0.30) K/uL Imm/Tot Granulo (auto) 0.0 % Diff Slide Review Acceptable Review (Acceptable) Sodium 137 (135-149) mmol/L Potassium 4.6 (3.6-5.1) mmol/L Chloride 113 (96-114) mmol/L Carbon Dioxide 19 L (20-32) mmol/L Anion Gap 5 L (7-15) mEq/L BUN 27 (7-30) mg/dL Creatinine 1.1 (0.5-1.5) mg/dL Estimated Creat Clear 37.73 Estimated GFR 51 ml/min Glucose 127 H (60-115) mg/dL Lactate 0.7 (0.5-1.9) mmol/L Calcium 8.8 (8.4-10.6) mg/dL Urine Color Yellow (Yellow) Urine Appearance Slightly Cloudy A (Clear) Urine pH 5.5 (5.0-8.5) Ur Specific [place] 1.010 (1.000-1.030) Urine Protein 1+ A (Negative) Urine Glucose (UA) Negative (Negative) Urine Ketones Negative (Negative) Urine Blood Trace-lysed A (Negative) Urine Nitrite Positive A (Negative) Urine Bilirubin Negative (Negative) Urine Urobilinogen 0.2 (0.2-1.0) Ur Leukocyte Esterase Negative (Negative) Urine RBC 0-2 (0-2) Urine WBC 2-5 (0-5) Ur Squamous Epith Cells Few (None-Few) Urine Bacteria Many A (None) Discharge Plan Discharge Clinical Impression: Pancytopenia, Epistaxis Urinary tract infection Qualifiers: Urinary tract infection type: site unspecified Hematuria presence: without hematuria Qualified Code(s): N39.0 - Urinary tract infection, site not specified Patient Disposition: Home, Self-Care Condition: Stable Instructions: Urinary Tract Infection in Women (ED), Nosebleed (ED), Pancytopenia (DC) Additional Instructions: I recommend holding off on your Xarelto the next few days until you follow-up with your oncologist. I recommend calling your oncologist on Tuesday to set up follow-up. If the bleeding gets worse I recommend to return immediately for re- evaluation. Prescriptions: New ciprofloxacin HCl 750 mg tablet 750 mg PO BID 7 Days Qty: 14 0RF amoxicillin-pot clavulanate 875-125 mg tablet 1 tab PO BID 7 Days Qty: 14 0RF No Action metoprolol tartrate 25 mg tablet 25 mg PO BID pravastatin 20 mg tablet 20 mg PO DAILY Xarelto 20 mg tablet 20 mg PO QPM aspirin 81 mg capsule 81 mg PO DAILY hydrocodone-acetaminophen 5-325 mg tablet 1 tab PO QID PRN dapagliflozin propanediol [Farxiga] 5 mg tablet 5 mg PO DAILY amlodipine 5 mg tablet 5 mg PO DAILY gabapentin 300 mg capsule 300 mg PO DAILY insulin lispro 100 unit/mL solution 1 sliding scale dose continuous subcutaneous infusion Q24H Rx Instructions: INSULIN PUMP - FOLLOW SLIDING SCALE UP TO 75 UNITS IN 24 HOURS VIA INSULIN PUMP omeprazole 20 mg capsule,delayed release(DR/EC) 20 mg PO DAILY cholecalciferol (vitamin D3) 25 mcg (1,000 unit) capsule 25 mcg PO DAILY Spiriva Respimat 2.5 mcg/actuation mist 2 inh inhalation Q24H latanoprost 0.005 % drops 1 drp ophthalmic (eye) QPM Miebo (PF) 100 % drops 1 drp ophthalmic (eye) QID hydroxyzine HCl 25 mg tablet 25 mg PO TID PRNQty: 10 0RF Follow Up/Referrals: Jenny Vaca MD [Primary Care Provider] - Stand Alone Forms: [facility] Info Instructions
[2024-10-13 21:53] LABS: Bacteria Urine Many; RBC Urine 0-2 (0-2); Squamous Epithelial Cell Urine Few (None-Few)
[2024-10-13 22:07] LABS: Mean Corpuscular HGB Conc 32 gm/dL (32-36)
[2024-10-13 22:20] LABS: Chloride* 113 mmol/L (96-114); Potassium* 4.6 mmol/L (3.6-5.1); Sodium* 137 mmol/L (135-149)
[2024-10-13 22:23] LABS: Anion Gap 5 mEq/L (7-15); Blood Urea Nitrogen* 27 mg/dL (7-30); Calcium* 8.8 mg/dL (8.4-10.6); Carbon Dioxide* 19 mmol/L (20-32); Creatinine* 1.1 mg/dL (0.5-1.5); Est. Creatinine Clearance* 37.73; Estimated Glomerular Filt Rate 51 ml/min; Glucose* 127 mg/dL (60-115)
[2024-10-13 22:53] LABS: Slide Review Reflex Yes
[2024-10-13 22:54] LABS: Eosinophils Percent Auto 1.8 % (0.0-7.0); Hematocrit 25.2 % (33.0-51.0); Lymphocytes Percent Auto 70.6 % (20-44); Mean Corpuscular Hemoglobin 30 pg (26-34); Mean Corpuscular Volume 95 fL (80-100); Monocytes Percent Auto 9.2 % (0.0-11.0); Neutrophils Percent Auto 18.4 % (42.0-72.0); Platelet Count* 15 K/uL (140-440); RDW Coefficient of Variation % 16.5 % (11.5-15.5); Red Blood Count 2.65 m/uL (4.00-5.20); White Blood Count* 1.09 K/uL (4.50-11.00)
[2024-10-13 22:57] LABS: Slide Review Acceptable Review (Acceptable)
[2024-10-13 23:38] LABS: Lactate* 0.7 mmol/L (0.5-1.9)
[2024-10-13] MEDS: AMOXICILLIN/CLAVULANATE 875 mg/125 mg TABLET PO (23:56)
[2024-10-13] MEDS: CIPROFLOXACIN 250 MG TABLET 750 MG PO (23:57)
[2024-10-14 00:06] VITALS: BP 110/76; PULSE 102; RESP 20
--- OUTSIDE RECORDS SUMMARY | 2024-10-14 17:38 | XMS_ITS | Clinical Summary ---
Author Organization [facility] Address [address] [place] [address] Care Team Providers Care Electronic Sales And Service Technician Name Role Phone Jenny Vaca MD Primary [...] afterwards 600 mL 5 4 2:47 PM MANAGER DOCUMENT CONTROL 03/04/20 23 Active magic mouthwash 1:1:1 (diphen 12.5mg/5mL-lidoc william 2%-maalox [phone]/5ml ) (AMB MIX) Take 5-10 mL by mouth four times daily after meals and bedtime. Hold in mouth for 1 minute. Do not eat or drink for 15-30 minutes after use. 500 mL 3 5 4:01 PM CDT 10/10/19 25 Active Active Problems Problem Noted Date Diagnosed Date Primary open angle glaucoma, right eye 4 Posterior capsule opacification 02/08/2012 Cataract 08/24/2011 Overview (08/24/2011): Right Eye Type II or unspecified type diabetes mellitus without mention of complication, not stated as uncontrolled 01/14/2004 Encounters Date Type Department Care Team Description 09/18/2024 9:33 AM CDT - 09/18/2024 11:59 PM CDT Hospital Encounter [address] [address] Encounter for blood transfusion, without reported diagnosis 09/18/2024 Orders Only [address] [place] [address] Marlo Diallo MB[facility] Lab 09/17/2024 12:59 PM CDT - 09/17/2024 4:31 PM CDT Emergency [address] [address] Shikha Palm MD Weakness (Primary Dx); Repeated [...] on file Legal Sex Female 5:23 AM MANAGER DOCUMENT CONTROL Gender Identity Not on file Sexual Orientation [...] 13, 02/15/2011 Medical Devices Implanted Type Area Home Comfort Advisor Device Identifier Shelf Expiration Date Model / Serial / Lot Lens Iol Zcb00 19.0 - [id number] Implanted:Qty: 1 on 08/25/[address] [facility] Right: Eye 12/28/2013 ZCB00# / [id number] / Port 8fr Powerport Clearvue Slim Intermediate Silcn - [id number] Implanted:Qty: 1 on 03/04/2023 by Kaylynn Espinoza MD at [facility] [employer] 10/27/2024 [id number] / / [id number] Procedures Procedure Name Priority Date/Time Associated Diagnosis [...] 6-10 ng/L ng/L 09/17/2024 4:07 PM CDT [facility] Blood BLOOD SPECIMEN / Unknown Venipuncture / Unknown 09/17/2024 3:42 PM CDT 09/17/2024 3:47 PM CDT us Shikha Palm MD CHEMISTRY Final Result [facility] [address] [address] * (ABNORMAL) URINALYSIS MICROSCOPIC (09/17/2024 3:27 PM CDT) RBC 0-2 0-2, None Seen /HPF 09/17/2024 3:36 PM T [facility] WBC 3-5 0-2, 3-5, None Seen /HPF 09/17/2024 3:36 PM T [facility] BACTERIA Few None Seen, Rare, Few Bacteria/H PF 09/17/2024 3:36 PM T [facility] EPITHELIAL CELLS Moderate(A ) None Seen, Few Epi/HPF 09/17/2024 3:36 PM [facility] Urine URINE SPECIMEN / Unknown Non-Blood / Unknown 09/17/2024 3:27 PM CDT 09/17/2024 3:30 PM CDT Shikha Palm MD URINE Final Result Performing Organization Address City/State/[facility] Co de Phone Number [facility] [address] [address] * (ABNORMAL) UA W/ SEDIMENT EXAM REFLEXED PER CRITERIA (09/17/2024 3:27 PM CDT) COLOR Yellow Yellow Color 09/17/2024 3:35 PM [facility] CLARITY Clear Clear Clarity 09/17/2024 3:35 PM [facility] SPECIFIC GRAVITY,URINE 1.010 1.010, 1.015, 1.020, 1.025 09/17/2024 3:35 PM [facility] PH,URINE 6.0 6.0, 7.0, 8.0, 5.5, 6.5, 7.5, 8.5 09/17/2024 3:35 PM [facility] UROBILINOGEN, QUALITATIVE Normal Normal EU/dl 09/17/2024 3:35 PM [facility] PROTEIN, URINE Negative Negative mg/dL 09/17/2024 3:35 PM [facility] GLUCOSE, URINE >=1000(A) Negative mg/dL 09/17/2024 3:35 PM [facility] KETONES,URINE Negative Negative mg/dL 09/17/2024 3:35 PM CDT [facility] BILIRUBIN,URI NE Negative Negative 09/17/2024 3:35 PM CDT [facility] OCCULT BLOOD,URINE Negative Negative 09/17/2024 3:35 PM CDT [facility] NITRITE Negative Negative 09/17/2024 3:35 PM CDT [facility] LEUKOCYTE ESTERASE Negative Negative 09/17/2024 3:35 PM CDT [facility] Urine URINE SPECIMEN / Unknown Non-Blood / Unknown 09/17/2024 3:27 PM CDT 09/17/2024 3:30 PM CDT Shikha Palm MD URINE Final Result [facility] [address] [address] * CT ABDOMEN PELVIS WO (09/17/2024 2:40 PM CDT) Anatomical Region Laterality Modality Abdomen, Pelvis, AORTA, LIVER, SPLEEN Computed Tomography Shikha Palm MD CT Final Result * CT 2D RECONSTRUCTION LUMBAR SPINE (09/17/2024 2:39 PM CDT) Anatomical Region Laterality Modality PATELLA, Spine Computed Tomogra phy Shikha Palm MD CT Final Result * CT SPINE CERVICAL WO (09/17/2024 2:39 PM CDT) Anatomical Region Laterality Modality CERVICAL SPINE, NECK, Spine Comp uted Tomography Shikha Palm MD CT Final Result * CT HEAD BRAIN WO (09/17/2024 2:39 PM CDT) Anatomical Region Laterality Modality HEAD, BRAIN Computed Tomogra phy us Shikha Palm MD CT Final Result * EKG [...] NOW QTc 477 ms BEYOND NOW P Aulander 67 degrees BEYOND NOW R Aulander 30 degrees BEYOND NOW T Aulander 57 degrees BEYOND NOW 09/17/2024 1:47 PM CDT 09/19/2024 8:24 PM CDT us Shikha Palm MD EKG ORD Final Result Performing Organization Address City/State/[facility] Co de Phone Number BEY[place] NOW [place], [place] * (ABNORMAL) TROPONIN T (HS) ACUTE W/2HR REFLEX (09/17/2024 1:42 PM CDT) Pathologist [facility] TROPONIN T HS 41(H) 6-10 ng/L ng/L 09/17/2024 2:23 PM CDT [facility] Blood BLOOD SPECIMEN / Unknown Line/Port / Unknown 09/17/2024 1:42 PM CDT 09/17/2024 1:52 PM CDT Narrative [facility] - 09/17/2024 2:23 PM CDT hs-cTnT (Elecsys [...] low risk in emergency department patient population. us Shikha Palm MD CHEMISTRY Final Result [facility] [address] [address] * (ABNORMAL) CBC WITH AUTO DIFFERENTIAL (09/17/2024 1:42 PM CDT) [facility] WHITE BLOOD COUNT 8.5 4.5 - 11.0 thou/cu mm 09/17/2024 1:57 PM [facility] RED BLOOD COUNT 2.61(L) 4.00 - 5.20 mil/cu mm 09/17/2024 1:57 PM [facility] HEMOGLOBIN 7.8(L) 12.0 - 16.0 g/dL 09/17/2024 1:57 PM [facility] HEMATOCRIT 24.3(L) 33.0 - 51.0 % 09/17/2024 1:57 PM [facility] MCV 93 80 - 100 fL 09/17/2024 1:57 PM [facility] MCH 29.9 26.0 - 34.0 pg 09/17/2024 1:57 PM [facility] MCHC 32.1 32.0 - 36.0 g/dL 09/17/2024 1:57 PM [facility] RDW 15.4 11.5 - 15.5 % 09/17/2024 1:57 PM [facility] PLATELET COUNT 317 140 - 440 thou/cu mm 09/17/2024 1:57 PM [facility] MPV 9.1 6.5 - 11.0 fL 09/17/2024 1:57 PM [facility] % NEUT 72.2 % 09/17/2024 1:57 PM [facility] % LYMPH 14.7 % 09/17/2024 1:57 PM [facility] % MONO 12.3 % 09/17/2024 1:57 PM [facility] % EOS 0.6 % 09/17/2024 1:57 PM [facility] % BASO 0.2 % 09/17/2024 1:57 PM [facility] ABSOLUTE NEUTROPHILS 6.1 1.7 - 7.0 thou/cu mm 09/17/2024 1:57 PM [facility] ABSOLUTE LYMPHOCYTES 1.3 0.9 - 2.9 thou/cu mm 09/17/2024 1:57 PM [facility] ABSOLUTE MONOCYTES 1.0(H) <0.9 thou/cu mm 09/17/2024 1:57 PM [facility] ABSOLUTE EOSINOPHILS 0.1 <0.5 thou/cu mm 09/17/2024 1:57 PM [facility] ABSOLUTE BASOPHILS 0.0 <0.3 thou/cu mm 09/17/2024 1:57 PM [facility] Blood BLOOD SPECIMEN / Unknown Line/Port / Unknown 09/17/2024 1:42 PM CDT 09/17/2024 1:52 PM T us Shikha Palm MD HEMATOLOGY Final Result [facility] [address] [address] * TSH WITH REFLEX (09/17/2024 1:42 PM CDT) TSH 2.31 0.27 - 4.20 uIU/mL 09/17/2024 2:23 PM CDT [facility] Blood BLOOD SPECIMEN / Unknown Line/Port / Unknown 09/17/2024 1:42 PM CDT 09/17/2024 1:52 PM CDT [facility] 09/17/2024 2:23 PM CDT In Adults, TSH values between 5.00 and 10.00 uIU/ml do not necessarily indicate the presence of Hypothyroidism. Correlation with clinical findings such as presence of goiter and/or Thyroperoxidase (TPO) Antibody may be helpful. For more information please refer to SONAL 2004; 291: 228-238. us Shikha Palm MD CHEMISTRY Final Result Performing Organization Address City/[facility]/ZIP Co de Phone Number [facility] [address] [address] * PHOSPHORUS (09/17/2024 1:42 PM CDT) [facility] PHOSPHORUS 3.6 2.5 - 4.5 mg/dL 09/17/2024 2:23 PM CDT [facility] Blood BLOOD SPECIMEN / Unknown Line/Port / Unknown 09/17/2024 1:42 PM CDT 09/17/2024 1:52 PM CDT us Shikha Palm MD CHEMISTRY Final Result Performing Organization Address [facility] Co de Phone Number [facility] [address] [address] * MAGNESIUM (09/17/2024 1:42 PM CDT) MAGNESIUM 1.8 1.6 - 2.4 mg/dL 09/17/2024 2:23 PM CDT [facility] Blood BLOOD SPECIMEN / Unknown Line/Port / Unknown 09/17/2024 1:42 PM CDT 09/17/2024 1:52 PM CDT us Shikha Palm MD CHEMISTRY Final Result [facility] [address] [address] * (ABNORMAL) BASIC METABOLIC PANEL (09/17/2024 1:42 PM CDT) SODIUM 135(L) 136 - 145 mmol/L 09/17/2024 2:23 PM [facility] POTASSIUM 4.2 3.5 - 5.1 mmol/L 09/17/2024 2:23 PM [facility] CHLORIDE 102 98 - 107 mmol/L 09/17/2024 2:23 PM [facility] CO2,TOTAL 24 22 - 29 mmol/L 09/17/2024 2:23 PM [facility] ANION GAP 9 5 - 18 09/17/2024 2:23 PM [facility] GLUCOSE 190(H) 70 - 99 mg/dL 09/17/2024 2:23 PM [facility] CALCIUM 8.9 8.8 - 10.4 mg/dL 09/17/2024 2:23 PM [facility] Comment: Reference ranges for this test were updated on 04/03/2024 to reflect our healthy population more accurately. Reference range changes are not retroactively applied to results, but previous results using the same methodology can be interpreted in the context of the new reference range. BUN 26(H) 8 - 23 mg/dL 09/17/2024 2:23 PM [facility] CREATININE 1.53(H) 0.50 - 0.90 mg/dL 09/17/2024 2:23 PM [facility] BUN/CREAT RATIO 17 10 - 20 2:23 PM [facility] eGFR 35(L) >90 mL/min/1. 73m2 09/17/2024 2:23 PM [facility] Comment:As of 2021, eG FR is [...] us Shikha Palm MD CHEMISTRY Final Result [facility] [address] [address] from Last 3 Months Insurance MEDICARE PART [...] 4:47 PM 10/03/2013 2:10 AM Care Teams Electronic Sales And Service Technician Relationship Specialty Start Date End Date Jenny Vaca MD [address] [place] [address] PCP - General 04/29/09
--- OUTSIDE RECORDS SUMMARY | 2024-10-14 17:38 | XMS_ITS | Data Portability ---
Author Organization [place] [facility], [employer] Address [address] [facility] [place] [address] Assessment Encounter Date Assessment Date Assessment LastModified [...] Time History of thromboem bolism of vein 980150159 Active 2013 History of DVT (deep vein thrombosis ); Original Code: V12.51 Matt ginal Codesystem : ICD-9-CM C lassificat ion: Medical Co nfirmation Status: Confirmed Not Available [facility] 3 09:04:46 Essential hypertens ion 45607575 Active 2013 HTN (Hypertens ion); Original Code: 401.9 Orig inal Codesystem : ICD-9-CM C lassificat ion: Medical Co nfirmation Status: Confirmed Not Available [facility] 3 09:04:46 Glaucoma 27012690 Active 2012 Glaucoma; Original Code: 365.9 Orig inal Codesystem : ICD-9-CM C lassificat ion: Medical Co nfirmation Status: Confirmed Not Available [facility] 3 09:04:47 Osteoarth ritis 128916350 Active 2013 Osteoarthr itis; Original Code: 715.90 Matt ginal Codesystem : ICD-9-CM C lassificat ion: Medical Co nfirmation Status: Confirmed Not Available [facility] 3 09:04:47 Disorder of nervous system due to type 2 diabetes mellitus 176866931 Active 2013 Diabetes Mellitus with Neuropathy ; Original Code: 250.60 Matt ginal Codesystem : ICD-9-CM C lassificat ion: Medical Co nfirmation Status: Confirmed Last vist: 09/19/23 Dr. Lio Galvez, [facility] 4 11:55:06 Onychomyc osis due to dermatoph yte 444097526 Active 2013 Onychomyco sis of toenail; Original Code: 110.1 Orig inal Codesystem : ICD-9-CM C lassificat ion: Medical Co nfirmation Status: Confirmed Not Available [facility] 3 09:04:47 Tobacco dependenc e syndrome 67148808 Active 2013 Tobacco user; Original Code: 305.1 Orig inal Codesystem : ICD-9-CM C lassificat ion: Medical Co nfirmation Status: Probable Not Available [facility] 3 09:04:47 Notes:_Paronychia, Toe_ (681 .11) Original Code: 681.11 Original Codesystem: ICD-9-CM Classification: Medical Confirmation Status: Confirmed Problem Notes None recorded. Procedures Surgical History Date Name Laterality Status Provider Name and Address Organization Details Recorded Time 09/29/2023 NAIL/Callu sDEBRIDEME NT completed Kilo Del Valle [facility] 09/29/2023 [...] Updated DateTime 09/29/2023 167.64 cm 22.4 kg/m2 45773.34 g Eleanor Mccoy [place] - [facility] 09/29/2023 [...] SNOMED-CT Code Diagnosis ICD10 Code Diagnosis Note 36641 Andrews Crawford DPM [place] [facility] [address] [facility] [address] [place] [address] 09/29/2023 10:57:14 10/04/2023 10:21:27 Peripheral neuropathy due to type 2 diabetes mellitus 9135958062 107 E11.42 Onychomycosis 429391172 B35.1 Foot callus 657269421 L8 4 Health Concerns Section Related Observation LastModified by Organization Detai ls LastModified Time None Recorded Concern Status LastModified by Organization Details LastModified Time None Recorded Advance Directives Directive None Recorded Payers Encounter Date Sequence Insurance Name Policy Number Policy Sanchez Covered Member ID Sanchez Member ID Guarantor Name 09/29/2023 1 [employer] Iva Goyal [id number] Iva Goyal 09/29/2023 2 MEDICARE [place]: [employer] SERVICES [facility] Iva Goyal [id number] Iva Goyal Notes Date Note Type Note [...] leg and foot. Andrews Crawford DPM [address] [place], [address], [place] - [facility] 09/30/2023 11:03:05 OBGyn Episode No OBEpisode recorded.
== END 2024-10-14 00:08 | disposition home or self-care (01) ==
PROVIDERS: Emergency Provider Student in an Organized Health Care Education/Training Program; PCP Internal Medicine
DX: N39.0 Urinary tract infection, site not specified (principal); D61.818 Other pancytopenia; R04.0 Epistaxis; R50.9 Fever, unspecified
CPT/HCPCS: 36415; 80048; 81001; 83605; 85025; 87086; 99283; 99284; A9270

== ENCOUNTER 2024-10-19 11:00 | Outpatient (RCR) | payer MEDICARE, OTHER, SELFPAY ==
[2024-10-17 09:53] VITALS: BP 120/76; PULSE 85; RESP 17; TEMP 36.4; O2SAT 100
--- NOTE | 2024-10-17 11:00 | ONC.PROVNOTE ---
[facility] Provider Note Clinic Note Narrative: Platelet transfusion Ms. Goyal follows for medical treatment of recurrent metastatic small cell lung cancer with Dr. Marlo Diallo, [facility] [place]. She was recently started on palliative topotecan with significant hematologic toxicity. Our clinic was requested to provide a platelet transfusion for platelet count of 11,000. Appreciate nursing who reached out to Dr. Diallo's nursing team for additional information regarding the patient since most recent office visit note 08/[address] Diallo, scanned into [employer]. - pt has never had platelet transfusion before, but has had packed red cells previously without report of reaction or antibody - she is also on xarelto anticoagulation - she is not currently reported to be a fall risk - she is due for visit with Dr. Diallo prior to cycle 2 of topotecan next week. I have signed order and ok transfusion of 1 unit of pharesed platelets on behalf of Dr. Diallo for Ms. Goyal.
[2024-10-17 13:59] VITALS: BP 110/62; PULSE 95; RESP 18; TEMP 35.6; O2SAT 100
[2024-10-17 14:22] VITALS: BP 105/68; PULSE 90; RESP 18; TEMP 36; O2SAT 98
[2024-10-17 14:55] VITALS: BP 132/80; PULSE 90; RESP 16; TEMP 35.8; O2SAT 100
[2024-10-17 15:27] VITALS: BP 128/76; PULSE 92; RESP 16; TEMP 35.7; O2SAT 99
[2024-10-17 16:25] VITALS: BP 151/78; PULSE 92; RESP 18; TEMP 36.4; O2SAT 94
[2024-10-17] MEDS: HEPARIN 500 UNIT/5 ML SYRINGE IVF (16:28)
[2024-10-17] MEDS: SODIUM CHLORIDE 0.9 % (FLUSH) 10 ML SYRINGE IVF (16:28)
[2024-10-19] VITALS (9 sets, daily range): BP systolic 101–178; BP diastolic 53–88; PULSE 89–96; RESP 16–17; TEMP 36.2–37.1; O2SAT 97–100
--- NOTE | 2024-10-31 14:53 | ONC.NURNOTE ---
Patient called the office to ask if it would be appropriate for her to come into the clinic to have her labs checked, as she just recently started bleeding from her vaginal area. She notes it is mostly when she sits down to urinate and wipe. Iva is no longer being seen by our oncologist, she is being seen by Dr. Diallo in [place]. She was told that she will need to check in with her oncologist or PCP to look into the reason for bleeding and if they find that she needs blood products, we would be happy to help her out if able. Patient understanding.
== END 2025-04-15 23:59 | disposition home or self-care (01) ==
LOC: CCIC 11:00
PROVIDERS: PCP Internal Medicine; Referring Provider Internal Medicine; Visit Provider Clinical Nurse Specialist
DX: D64.81 Anemia due to antineoplastic chemotherapy (principal); T45.1X5A Adverse effect of antineoplastic and immunosuppressive drugs, initial encounter; C34.91 Malignant neoplasm of unspecified part of right bronchus or lung
CPT/HCPCS: 36415; 36430; 36591; 86850; 86900; 86901; 86922; J1642; P9016; P9073